=== PATIENT | female | born 1985 | race African-American/Black ===

== ENCOUNTER 2016-03-31 21:04 | Emergency (ER) | payer OTHER ==
[~2016-03-31] VITALS: Ht 162.6 cm; Wt 61.2 kg
[~2016-03-31 21:04] MED LIST: HYDR12.58 PO; HYDR25TA9 PO; METF500T4 PO
--- NOTE | 2016-03-31 21:42 | ED.ADGEN ---
Past Medical History Past Medical History: Diabetes-Type II, Hypertension Past Surgical History: Alcohol Use: Occasionally Drug Use: Marijuana Adult General Chief Complaint Chief Complaint: ANXIETY/PANIC ATTACK HPI HPI Patient is a 30 year old woman, history of type 2 diabetes mellitus, hypertension, who presents to the department with complaint of "months" of anxiety. Patient states that this may have been worsened by the of her father, states she experiencing chest tightness and shortness of breath, associated with "thinking too much", states that she has a feeling of her heart racing, and goes to sleep "afraid that I won't wake up". She does not have a primary care provider, and currently is taking metformin and hydrochlorothiazide as prescribed by an emergency physician several months ago, has been "just picking up the refills". She has not received any psychiatric counseling previously, cures no psychiatric diagnoses, does not take any medications aside from those listed. She states that she does smoke marijuana and cigarettes, denies any other drug use, no alcohol. Denies any suicidal or homicidal ideation, any self injures behaviors or thoughts, any auditory or visual hallucinations. No recent travel or surgery, history of DVT or PE, no concerning family history regarding cardiac or pulmonary events. Review of Systems Review of Systems Constitutional: Denies fever or chills. [] Eyes: Denies change in visual acuity. [] HENT: Denies nasal congestion or sore throat. [] Respiratory: Occasional cough, shortness of breath. Cardiovascular: Anterior chest tightness, no edema. GI: Denies abdominal pain, nausea, vomiting, bloody stools or diarrhea. [] : Denies dysuria. [] Musculoskeletal: Denies back pain or joint pain. [] Integument: Denies rash. [] Neurologic: Denies headache, focal weakness or sensory changes. [] Endocrine: Denies polyuria or polydipsia. [] Lymphatic: Denies swollen glands. [] Psychiatric: Some depression following the of her father, anxiety attacks. Allergies Allergies Allergies Coded Allergies Type Severity Reaction Last Updated Verified No Known Drug Allergies 10/20/15 No Physical Exam Physical Exam Constitutional: Well developed, well nourished, no acute distress, non-toxic appearance. [] HENT: Normocephalic, atraumatic, bilateral external ears normal, oropharynx moist, no oral exudates, nose normal. [] Eyes: PERRLA, EOMI, conjunctiva normal, no discharge. [] Neck: Normal range of motion, no tenderness, supple, no stridor. [] Cardiovascular:Heart rate regular rhythm, no murmur, S1, S2, no rubs or gallops. [] Lungs & Thorax: Bilateral breath sounds clear to auscultation, no wheezing, rhonchi, rales. No chest wall tenderness or crepitus. [] Abdomen: Bowel sounds normal, soft, no tenderness, no masses, no pulsatile masses. [] Skin: Warm, dry, no erythema, no rash. [] Back: No tenderness, no CVA tenderness. [] Extremities: No tenderness, no cyanosis, no clubbing, ROM intact, no edema. Negative Homans sign. [] Neurologic: Alert and oriented X 3, normal motor function, normal sensory function, no focal deficits noted. [] Psychologic: Affect normal, judgement normal, mood normal. [] Current Patient Data Vital Signs Vital Signs Date Time Temp Pulse Resp B/P Pulse Ox O2 Delivery O2 Flow Rate FiO2 03/31/16 21:20 98.9 107 17 198/105 100 Room Air 98.9 Lab Values Laboratory Tests Test 03/31/16 21:10 03/31/16 21:59 Urine Collection Type Unknown Urine Color Yellow Urine Clarity Clear Urine pH 7.0 Urine Specific [place] 1.020 Urine Protein >=300mg/dL (NEG-TRACE) Urine Glucose (UA) 250mg/dL (NEG) Urine Ketones (Stick) Negativemg/dL (NEG) Urine Blood Moderate (NEG) Urine Nitrite Negative (NEG) Urine Bilirubin Negative (NEG) Urine Urobilinogen Dipstick 0.2mg/dL (0.2 mg/dL) Urine Leukocyte Esterase Negative (NEG) Urine RBC 11-20/HPF (0-2) Urine WBC 5-10/HPF (0-4) Urine Squamous Epithelial Cells Mod/LPF Urine Bacteria Few/HPF (0-FEW) Urine Hyaline Casts Moderate/HPF Urine Test Negative (NEG) Urine Opiates Screen Neg (NEG) Urine Methadone Screen Neg (NEG) Urine Barbiturates Neg (NEG) Urine Phencyclidine Screen Pos (NEG) Urine Amphetamine/Methamphetamine Neg (NEG) Urine Benzodiazepines Screen Neg (NEG) Urine Cocaine Screen Neg (NEG) Urine Cannabinoids Screen Pos (NEG) Urine Ethyl Alcohol Neg (NEG) POC Hemoglobin 8.2g/dL (12-15) L POC Hematocrit 24% (36-40) L POC Sodium 137mmol/L (135-145) POC Potassium 3.8mmol/L (3.5-5.0) POC Chloride 109mmol/L (98-110) POC Total CO2 18mmol/L (23-32) L Anion Gap 15mmol/L (6-14) H POC Blood Urea Nitrogen 16mg/dL (8-26) POC Creatinine 1.6mg/dL (0.5-1.4) H Glucose Level 186mg/dL (70-99) H POC Ionized Calcium ([place]) 1.19mmol/L (1.13-1.32) Laboratory Tests 03/31/16 21:59 EKG EKG EC: Sinus rhythm, heart rate 91 beats/minute, upright axis, QTC of 390, MD 122, QRS is 60, baseline artifact noted, no ST elevations or depressions, no evidence of acute ST abnormalities. As interpreted by me. Radiology/Procedures Radiology/Procedures Chest x-ray: PA and lateral: Normal cardiopulmonary silhouette, no infiltrates, no effusions, no soft tissue or bony abnormalities identified. As interpreted by me. [] Course & Med Decision Making Course & Med Decision Making Pertinent Labs and Imaging studies reviewed. (See chart for details) Patient's complaints appear to be psychiatric in nature, as symptoms are tied to be her emotional state, however based on her medical history, length of symptoms, and lack of follow-up, chest x-ray, ECG, and i-STAT laboratory studies obtained. Patient is PERC negative. Patient noted to have an i-STAT hemoglobin of 8.2, previous hemoglobin was 10.2 on a prior evaluation several months ago, I did discuss this with patient, she does have a history of heavy menses, and has been told previously that she was anemic. She had a heavy cycle beginning of the month, and is beginning her menses again at this time. She complains of some lightheadedness at times, however orthostatics were negative in the emergency department, lying flat, heart rate was 90, blood pressure of 174/86, seated upright heart rate of 90, blood pressure of 170/90, standing heart rate of 91, blood pressure 169/82. Patient ambulated in the ED without issue. I did discuss with patient that her ECG, an x-ray did not reveal any concerning findings, and a laboratory finding for otherwise normal aside from her hemoglobin of 8.2, instructed her to take ferrous sulfate, 325 mg, 3 tablets daily with Colace to prevent constipation, to stay well-hydrated, and follow-up with both a primary care provider for general medical care, and OB/ PREFORMING MACHINE OPERATOR for additional evaluation of her bleeding. She was given contact information for Dr. Lovelace of ROOM SERVICE ATTENDANT, list of primary care providers, and also a list of mental health resources to seek additional help with her anxiety, we also discussed concerning symptoms that would prompt return. Patient states she does have her metformin and her blood pressure medication at home, will continue to take as directed. Patient voiced understanding and agreement with plan as stated, was discharged home in stable condition with plan as above. Dragon Disclaimer Dragon Disclaimer This electronic medical record was generated, in whole or in part, using a voice recognition dictation system. Departure Impression: Primary Impression: Anxiety Additional Impressions: Anemia Accelerated hypertension Scripts Docusate Sodium (Colace)100 Mg [id number] Mg PO QHS PRN CONSTIPATION #60 Prov:NICOLE CARMONA DO 03/31/16 Ferrous Sulfate 325 Mg Tablet1 Tab PO TID #90 TAB Ref 0 Prov:NICOLE CARMONA DO 03/31/16 Problem Qualifiers Additional Impressions: Anemia Anemia type: iron deficiency Iron deficiency anemia type: chronic blood loss Qualified Code: D50.0 - Iron deficiency anemia secondary to blood loss ( chronic) NICOLE CARMONA DO Mar 31, 2016 21:42
[2016-03-31 21:44] LABS: NEG OBC UR NEG; POS OBC UR POS
[2016-03-31 21:47] LABS: BILIRUBIN,URINE NEGATIVE (NEG); GLUCOSE,URINE 250 mg/dL (NEG); NITRITE,URINE NEGATIVE (NEG); PROTEIN,URINE >=300 mg/dL (NEG-TRACE); UROBILINOGEN,URINE 0.2 mg/dL (0.2 mg/dL)
[2016-03-31 21:48] LABS: BARBITURATES NEG (NEG); BENZODIAZEPINES NEG (NEG); CANNABINOIDS POS (NEG); COCAINE NEG (NEG); METHADONE NEG (NEG); OPIATES NEG (NEG); PHENCYCLIDINE POS (NEG)
[2016-03-31 21:49] LABS: ETHANOL, URINE NEG (NEG)
[2016-03-31 22:04] LABS: POTASSIUM ISTAT 3.8 mmol/L (3.5-5.0)
[2016-03-31 22:05] LABS: BACTERIA,URINE FEW /HPF (0-FEW); SQUAMOUS EPITHELIAL CELL,UR MOD /LPF
[2016-03-31 22:15] VITALS: BP 174/86
[2016-03-31] MEDS ORDERED: DOCU-27 PO (22:43)
[2016-03-31] MEDS ORDERED: FERR-26 PO (22:43)
--- NOTE | 2016-04-01 06:34 | EKG ---
[facility] [address] [place] [address] Test Date: 2016-03-31 Test Time: 21:55:23 Pat Name: JORGE ESTRADA Department: Room: Gender: F Manager Academic: : 1985 Requested By: NICOLE CARMNOA Order Number: [id number] Reading MD: Jos Davies Measurements Intervals [place] Rate: 91 P: -159 RI: 122 QRS: 57 QRSD: 60 T: 20 QT: 316 QTc: 390 Interpretive Statements SINUS RHYTHM QRS(T) CONTOUR ABNORMALITY CONSISTENT WITH ANTEROSEPTAL INFARCT AGE UNDETERMINED T ABNORMALITY IN ANTERIOR LEADS ABNORMAL ECG Electronically Signed On 04-01-2016 14:55:59 TAX AGENT by Jos Davies
--- NOTE | 2016-04-01 07:36 | RAD ---
Indication: Chest pain. Time of exam 2201 hours. Comparison is made with prior chest from 10/20/2015. FINDINGS: The heart size is normal. The lungs are clear. No pleural effusion or pneumothorax is identified. The pulmonary vascularity is normal. IMPRESSION: No acute abnormality detected.
== END 2016-03-31 22:55 | disposition home or self-care (01) ==
LOC: ER 21:04
DX: F41.9 Anxiety disorder, unspecified (principal); D50.0 Iron deficiency anemia secondary to blood loss (chronic); E11.9 Type 2 diabetes mellitus without complications; I10 Essential (primary) hypertension; F12.90 Cannabis use, unspecified, uncomplicated
CPT/HCPCS: 71020; 80047; 81001; 81025; 93005; 99285; G0481; 96374

== ENCOUNTER 2016-05-14 23:52 | Emergency (ER) | payer OTHER ==
[~2016-05-14] VITALS: Ht 160 cm; Wt 61.2 kg
[~2016-05-14 23:52] MED LIST changes: +DOCU-27 PO; +FERR-26 PO
--- NOTE | 2016-05-15 00:28 | PHYS DOC ---
Past Medical History Past Medical History: Anxiety, Diabetes-Type II, Hypertension Past Surgical History: Alcohol Use: Occasionally Drug Use: Marijuana Adult General Chief Complaint Chief Complaint: ANXIETY/PANIC ATTACK HPI HPI Patient is a 30 year old female who presents by EMS for dyspnea, chest tightness and anxiety exactly like prior anxiety attacks after speaking with her friend about her father. She states symptoms have currently resolved now that she is calm. Blood glucose checked and noted in 400s by EMS. She states she has not been compliant with metformin or HTN meds. She denies headache, n/v, f/c, dysuria, diarrhea, abd pain, numbness, tingling, weakness, cough. Review of Systems Review of Systems Constitutional: Denies fever or chills [] Eyes: Denies change in visual acuity, redness, or eye pain [] HENT: Denies nasal congestion or sore throat [] Respiratory: Denies cough or shortness of breath [] Cardiovascular: No additional information not addressed in HPI [] GI: Denies abdominal pain, nausea, vomiting, bloody stools or diarrhea [] : Denies dysuria or hematuria [] Musculoskeletal: Denies back pain or joint pain [] Integument: Denies rash or skin lesions [] Neurologic: Denies headache, focal weakness or sensory changes [] Endocrine: Denies polyuria or polydipsia [] Allergies Allergies Allergies Coded Allergies Type Severity Reaction Last Updated Verified No Known Drug Allergies 10/20/15 No Physical Exam Physical Exam Constitutional: Well developed, well nourished, no acute distress, non-toxic appearance. [] HENT: Normocephalic, atraumatic, bilateral external ears normal, oropharynx moist, nose normal. [] Eyes: PERRLA, EOMI. [] Neck: Normal range of motion, supple, no stridor. [] Cardiovascular:Heart rate regular rhythm [] Lungs & Thorax: Bilateral breath sounds clear to auscultation [] Abdomen: Bowel sounds normal, soft, no tenderness. [] Skin: Warm, dry, no erythema, no rash. [] Back: Normal ROM. [] Extremities: No tenderness, ROM intact, no edema, no palpable cord. [] Neurologic: Alert and oriented X 3, normal motor function, normal sensory function, no focal deficits noted. [] Psychologic: Affect normal, judgement normal, mood normal. [] Current Patient Data Vital Signs Vital Signs Date Time Temp Pulse Resp B/P Pulse Ox O2 Delivery O2 Flow Rate FiO2 05/15/16 01:00 90 16 166/79 98 Room Air 05/14/16 23:55 98.2 98.2 Lab Values Laboratory Tests Test 05/15/16 00:02 05/15/16 00:15 05/15/16 00:25 Sodium Level 137mmol/L (136-145) Potassium Level 3.3mmol/L (3.5-5.1) L Chloride Level 101mmol/L (98-107) Carbon Dioxide Level 24mmol/L (21-32) Anion Gap 12 (6-14) Blood Urea Nitrogen 23mg/dL (7-20) H Creatinine 1.8mg/dL (0.6-1.0) H Estimated GFR (Cockcroft-Gault) 40.0 Glucose Level 511mg/dL (70-99) *H Calcium Level 8.5mg/dL (8.5-10.1) Urine Collection Type Unknown Urine Color Yellow Urine Clarity Clear Urine pH 7.0 Urine Specific [place] 1.020 Urine Protein >=300mg/dL (NEG-TRACE) Urine Glucose (UA) >=1000mg/dL (NEG) Urine Ketones (Stick) Negativemg/dL (NEG) Urine Blood Moderate (NEG) Urine Nitrite Negative (NEG) Urine Bilirubin Negative (NEG) Urine Urobilinogen Dipstick 0.2mg/dL (0.2 mg/dL) Urine Leukocyte Esterase Negative (NEG) Urine RBC Occ/HPF (0-2) Urine WBC 5-10/HPF (0-4) Urine Squamous Epithelial Cells Few/LPF Urine Bacteria Few/HPF (0-FEW) Urine Mucus Slight/LPF POC Urine HCG, Qualitative Hcg negative (Negative) Laboratory Tests 05/15/16 00:02 Course & Med Decision Making Course & Med Decision Making Pertinent Labs and Imaging studies reviewed. (See chart for details) She has uncontrolled chronic medical conditions, but has otherwise remained asymptomatic. Discussed to restart home meds for control of HTN and DM. Return precautions given. She understands and agrees with plan. Dragon Disclaimer Dragon Disclaimer This electronic medical record was generated, in whole or in part, using a voice recognition dictation system. Departure Departure Impression: Primary Impression: Anxiety Additional Impressions: Uncontrolled hypertension Uncontrolled type 2 diabetes mellitus Disposition: HOME, SELF-CARE Condition: STABLE Referrals: NO PCP (PCP) Patient Instructions: Hyperglycemia, [id number] Additional Instructions: Follow-up with your primary care doctor. Resume your home medications. Return for any concerns. Problem Qualifiers Additional Impressions: Uncontrolled type 2 diabetes mellitus Diabetes mellitus complication status: without complication Diabetes mellitus termite technician insulin use: without termite technician use Qualified Code: E11.65 - Type 2 diabetes mellitus with hyperglycemia Carlota KAUFMAN MD May 15, 2016 00:28
[2016-05-15 00:49] LABS: BILIRUBIN,URINE NEGATIVE (NEG); GLUCOSE,URINE >=1000 mg/dL (NEG); NITRITE,URINE NEGATIVE (NEG); PROTEIN,URINE >=300 mg/dL (NEG-TRACE); UROBILINOGEN,URINE 0.2 mg/dL (0.2 mg/dL)
[2016-05-15 00:56] LABS: BACTERIA,URINE FEW /HPF (0-FEW); RBC,URINE OCC /HPF (0-2); SQUAMOUS EPITHELIAL CELL,UR FEW /LPF
[2016-05-15 01:03] LABS: CALCIUM 8.5 mg/dL (8.5-10.1); CREATININE 1.8 mg/dL (0.6-1.0); POTASSIUM 3.3 mmol/L (3.5-5.1)
[2016-05-15 01:20] VITALS: BP 177/93
== END 2016-05-15 01:24 | disposition home or self-care (01) ==
LOC: ER 23:52
DX: F41.9 Anxiety disorder, unspecified (principal); I10 Essential (primary) hypertension; E11.65 Type 2 diabetes mellitus with hyperglycemia; F12.10 Cannabis abuse, uncomplicated
CPT/HCPCS: 36415; 80048; 81001; 81025; 99284

== ENCOUNTER 2017-09-29 16:03 | Emergency (ER) | payer OTHER ==
[2017-09-29 16:32] LABS: ADD MAN DIFF? NO
[2017-09-29 16:35] LABS: BASO % 1 % (0-3); EOS # 0.3 x10^3/uL (0.0-0.7); EOS % 4 % (0-3); HEMATOCRIT 24.8 % (36.0-47.0); HEMOGLOBIN 8.4 g/dL (12.0-15.5); LYMPH # 1.5 x10^3/uL (1.0-4.8); LYMPH % 16 % (24-48); MEAN CORPUSCULAR HEMOGLOBIN 31 pg (25-35); MEAN CORPUSCULAR HGB CONC 34 g/dL (31-37); MEAN CORPUSCULAR VOLUME 90 fL (79-100); MONO # 0.5 x10^3/uL (0.0-1.1); MONO % 5 % (0-9); NEUT # 6.9 x10^3uL (1.8-7.7); NEUT % 75 % (31-73); PLATELET COUNT 227 x10^3/uL (140-400); RED BLOOD COUNT 2.76 x10^6/uL (3.50-5.40); RED CELL DISTRIBUTION WIDTH 15.8 % (11.5-14.5); WHITE BLOOD COUNT 9.2 x10^3/uL (4.0-11.0)
[2017-09-29 16:42] LABS: ANION GAP 11 (6-14); BLOOD UREA NITROGEN 33 mg/dL (7-20); BUN/CREATININE RATIO 5 (6-20); CARBON DIOXIDE 25 mmol/L (21-32); CHLORIDE 98 mmol/L (98-107); CREATININE 6.1 mg/dL (0.6-1.0); GFR 9.6; GLUCOSE 391 mg/dL (70-99); POTASSIUM 3.3 mmol/L (3.5-5.1); SODIUM 134 mmol/L (136-145)
[2017-09-29 16:48] LABS: ALBUMIN 2.9 g/dL (3.4-5.0); ALBUMIN/GLOBULIN RATIO 0.7 (1.0-1.7); ALK PHOS 83 U/L (46-116); ALT (SGPT) 19 U/L (14-59); AST (SGOT) 15 U/L (15-37); TOTAL BILIRUBIN 0.2 mg/dL (0.2-1.0); TOTAL PROTEIN 7.2 g/dL (6.4-8.2)
== END 2017-09-29 17:45 | disposition home or self-care (01) ==
LOC: ER 16:03
DX: R00.2 Palpitations (principal); E11.22 Type 2 diabetes mellitus with diabetic chronic kidney disease; I12.0 Hypertensive chronic kidney disease with stage 5 chronic kidney disease or end stage renal disease; N18.6 End stage renal disease; Z99.2 Dependence on renal dialysis
CPT/HCPCS: 36415; 80053; 85025; 93005; 99285-25

== ENCOUNTER 2017-12-05 07:29 | Day surgery (SDC) | payer OTHER ==
[~2017-12-05] VITALS: Ht 162.6 cm; Wt 59.4 kg
[~2017-12-05 07:29] MED LIST changes: +BUPIVACAINE-EPI 0.5%-1:200000 50 ML VIAL. ONE; +DOCU-109 PO; -DOCU-27 PO; -FERR-26 PO; +FERR325T14 PO; +HEPARIN SODIUM 5,000 UNIT in IV NORMAL SALINE 500ML BAG 500 ML IRR ONE; +HYDROmorphone 2 MG/ML VIAL IV PRN; +IV RINGERS,LACTATED 1000ML 1,000 ML IV SCH; +LIDOCAINE 1% PF 2 ML VIAL. ID PRN; +METF500T16 PO; -METF500T4 PO; +ONDANSETRON PF 4 MG/2 ML VIAL. IV PRN; +PROCHLORPERAZINE 10 MG/2 ML VIAL. IV PRN; +fentaNYL PF VIAL 100 MCG/2 ML VIAL IV PRN
[2017-12-05] MEDS ORDERED: AMLO10TA6 PO (08:00)
[2017-12-05] MEDS ORDERED: IV NORMAL SALINE 1000ML BAG 1,000 ML IV SCH (08:15)
[2017-12-05] MEDS ORDERED: PROPOFOL 20 ML IV ONE ×2 (08:29→10:48)
[2017-12-05] MEDS ORDERED: DEXAMETHASONE SOD PHOS 20 MG/5 ML VIAL. ONE (08:29)
[2017-12-05] MEDS ORDERED: ROCURONIUM 50 MG/5 ML VIAL. ONE (08:29)
[2017-12-05] MEDS ORDERED: fentaNYL PF VIAL 100 MCG/2 ML VIAL ONE (08:29)
[2017-12-05] MEDS ORDERED: ONDANSETRON PF 4 MG/2 ML VIAL. ONE (08:29)
[2017-12-05 08:42] LABS: U PREG PATIENT NEGATIVE (NEG)
[2017-12-05 09:32] LABS: ALBUMIN 2.6 g/dL (3.4-5.0); CALCIUM 8.2 mg/dL (8.5-10.1); CREATININE 10.2 mg/dL (0.6-1.0); GFR 5.3; POTASSIUM 3.4 mmol/L (3.5-5.1)
[2017-12-05] MEDS ORDERED: NEOSTIGMINE 10 MG/10 ML VIAL. ONE (10:25)
[2017-12-05] MEDS ORDERED: GLYCOPYRROLATE 1 MG/5 ML VIAL. ONE (10:25)
[2017-12-05] MEDS: MORPHINE SULFATE 2 MG/ML VIAL. IV PRN ×2 (11:01→11:48)
[2017-12-05] MEDS: fentaNYL PF VIAL 100 MCG/2 ML VIAL IV PRN ×2 (11:08→11:26)
--- NOTE | 2017-12-05 11:16 | PDOC ---
BRIEF OPERATIVE NOTE Date: Dec 05, 2017 Pre-Op Diagnosis ESRD Post-Op Diagnosis same Procedure Performed l/s placement of PD catheter JOE Surgeon Jaime Anesthesia Type: General Blood Loss 10cc IV Fluid 100cc Specimens Obtained none Findings single omental adhesion Complications none Operative Note WK # [id number] AJ OLIVAS MD Dec 05, 2017 11:16
[2017-12-05] MEDS ORDERED: OXYC-323 PO (11:31)
[2017-12-05] MEDS ORDERED: DOCU50CA9 PO (11:32)
--- NOTE | 2017-12-05 11:32 | OP ---
DATE OF SURGERY: 12/05/2017 PREOPERATIVE DIAGNOSIS: End-stage renal disease, currently on hemodialysis, requesting peritoneal dialysis. POSTOPERATIVE DIAGNOSIS: End-stage renal disease, currently on hemodialysis, requesting peritoneal dialysis. PROCEDURE: Laparoscopic placement of peritoneal dialysis catheter. SURGEON: Gaston Olivas MD ANESTHESIA: General endotracheal. ESTIMATED BLOOD LOSS: 10 mL. IV FLUID: 100. INDICATIONS: The patient is a 32-year-old with end-stage renal disease, on hemodialysis, requesting PD cath, brought for placement. DESCRIPTION OF PROCEDURE: The patient was brought to the operating suite, given a general endotracheal anesthetic, and the abdomen prepped and draped in usual sterile fashion. An epigastric incision was infiltrated with local anesthetic, incised and a 5 mm Visiport used to safely gain access into the abdominal cavity, taking care to avoid injury to abdominal contents. Pneumoperitoneum established. Camera inserted. Inspection carried out. A single omental adhesion was present. A 5 mm Visiport was placed under direct vision at the entry site of the catheter, and the laparoscopic LigaSure was used to divide it. The port was removed. Veress needle placed. Needle removed. Dilators used. Catheter threaded through the sheath and the sheath was removed while seating the Dacron cuff just outside the peritoneum. The access site was infiltrated with local anesthetic, incised and the tunneler was used to deliver the end of the catheter out the exit site. Pneumoperitoneum decompressed. Port removed. The catheter was flushed with approximately 600 mL of normal saline, which are readily accepted and similarly drained out. Incisions closed with interrupted 3-0 Vicryl on the subcutaneous tissue. Skin bandar for the skin. Sterile dressings applied. Prior to placement of dressings, the catheter was "packed" with 60 mL of heparinized saline. The patient awakened from her anesthetic and taken to the recovery room in satisfactory condition. GASTON OLIVAS MD DR: SUSY/manasa JOB#: [id number] / [id number]
[2017-12-05] MEDS ORDERED: oxyCODONE/APAP 5/325 1 TAB TABLET PO ONE (12:00)
[2017-12-05 12:09] VITALS: BP 138/85
[2017-12-05] MEDS ORDERED: SEVOFLURANE 31 TO 60 MINUTES. IH ONE (12:26)
== END 2017-12-05 12:47 | disposition home or self-care (01) ==
LOC: SURG 07:29
PROVIDERS: ATTEND Surgery
DX: I12.0 Hypertensive chronic kidney disease with stage 5 chronic kidney disease or end stage renal disease (principal); E11.22 Type 2 diabetes mellitus with diabetic chronic kidney disease; N18.6 End stage renal disease; E78.00 Pure hypercholesterolemia, unspecified; Z99.2 Dependence on renal dialysis; Z79.4 Long term (current) use of insulin; Z79.899 Other long term (current) drug therapy; Z98.890 Other specified postprocedural states; Z80.0 Family history of malignant neoplasm of digestive organs; F17.210 Nicotine dependence, cigarettes, uncomplicated
CPT/HCPCS: 36415; 49324; 80048; 81025; 82040; 82962; J0690; J0780; J1100; J1644; J2270; J2405; J2704; J3010; J7030; J7040; J7120; J2710; J3490

== ENCOUNTER 2018-11-12 23:55 | Inpatient (IN) | payer SELFPAY ==
[~2018-11-12] VITALS: Ht 162.6 cm; Wt 70.8 kg
[~2018-11-12 23:55] MED LIST changes: +AMLO10TA8 PO; -BUPIVACAINE-EPI 0.5%-1:200000 50 ML VIAL. ONE; +DOCU50CA9 PO; -HEPARIN SODIUM 5,000 UNIT in IV NORMAL SALINE 500ML BAG 500 ML IRR ONE; +HYDR-2145 PO; -HYDR25TA9 PO; -HYDROmorphone 2 MG/ML VIAL IV PRN; -IV RINGERS,LACTATED 1000ML 1,000 ML IV SCH; -LIDOCAINE 1% PF 2 ML VIAL. ID PRN; -ONDANSETRON PF 4 MG/2 ML VIAL. IV PRN; +OXYC1TAB15 PO; -PROCHLORPERAZINE 10 MG/2 ML VIAL. IV PRN; -fentaNYL PF VIAL 100 MCG/2 ML VIAL IV PRN
[2018-11-13] VITALS (15 sets, daily range): BP systolic 129–182; BP diastolic 73–93
[2018-11-13 00:41] LABS: BASO # 0.2 x10^3/uL (0.0-0.2); BASO % 2 % (0-3); EOS # 0.4 x10^3/uL (0.0-0.7); EOS % 4 % (0-3); HEMATOCRIT 25.1 % (36.0-47.0); HEMOGLOBIN 8.3 g/dL (12.0-15.5); LYMPH # 1.3 x10^3/uL (1.0-4.8); LYMPH % 11 % (24-48); MEAN CORPUSCULAR HEMOGLOBIN 31 pg (25-35); MEAN CORPUSCULAR HGB CONC 33 g/dL (31-37); MEAN CORPUSCULAR VOLUME 94 fL (79-100); MONO # 1.2 x10^3/uL (0.0-1.1); MONO % 10 % (0-9); NEUT # 9.6 x10^3/uL (1.8-7.7); NEUT % 75 % (31-73); PLATELET COUNT 471 x10^3/uL (140-400); RED BLOOD COUNT 2.68 x10^6/uL (3.50-5.40); RED CELL DISTRIBUTION WIDTH 17.6 % (11.5-14.5); WHITE BLOOD COUNT 12.8 x10^3/uL (4.0-11.0)
[2018-11-13] MEDS ORDERED: CCPD PATIENT. MC PRN (00:45)
--- NOTE | 2018-11-13 00:45 | PHYS DOC ---
Past Medical History Past Medical History: Anxiety, Diabetes-Type II, Hypertension, Renal Failure Past Surgical History: , Other Additional Past Surgical Histo: kidney biopsy,dialysis cath R chest Alcohol Use: None Drug Use: Marijuana Adult General Chief Complaint Chief Complaint: SHORTNESS OF BREATH HPI HPI Patient is a 33-year-old female with end-stage renal disease who is on peritone al dialysis who is also medically noncompliant presents stating she is short of breath and fluid overloaded. She states she last did dialysis 4 days ago. She denies any fever chills or sweats. She has had a cough but it's been nonproductive. She denies any significant chest pain. She denies abdominal pain.[] Review of Systems Review of Systems Constitutional: Denies fever or chills [] Eyes: Denies change in visual acuity, redness, or eye pain [] HENT: Denies nasal congestion or sore throat [] Respiratory: Reports shortness of breath[] Cardiovascular: No additional information not addressed in HPI [] GI: Denies abdominal pain, nausea, vomiting, bloody stools or diarrhea [] : Denies dysuria or hematuria [] Musculoskeletal: Denies back pain or joint pain [] Integument: Denies rash or skin lesions [] Neurologic: Denies headache, focal weakness or sensory changes [] [] All other systems were reviewed and found to be within normal limits, except as documented in this note. Current Medications Current Medications Current Medications Medications (Trade) Dose Ordered Sig/Mary Kay Start Time Stop Time Status Last Admin Dose Admin Albuterol Sulfate (Ventolin Neb Soln) 10 mg 1X ONCE 11/13/18 01:15 11/13/18 01:16 Calcium Gluconate (Calcium Gluconate) 1,000 mg 1X ONCE 11/13/18 01:15 11/13/18 01:16 Dextrose (Dextrose 50%-Water Syringe) 25 gm 1X ONCE 11/13/18 01:15 11/13/18 01:16 Insulin Human Regular (HumuLIN R VIAL) 10 unit 1X ONCE 11/13/18 01:15 11/13/18 01:16 Lorazepam (Ativan Inj) 1 mg 1X ONCE 11/13/18 00:30 11/13/18 00:31 DC 11/13/18 00:50 1 MG Nicardipine HCl 50 mg/Sodium Chloride 250 ml @ 25 mls/hr CONT PRN 11/13/18 00:30 11/13/18 00:47 DC Peritoneal Dialysis Solution (Continuous Cycling Peritoneal Dialysis Pt) 1 each PRN 1X PRN 11/13/18 00:45 Sodium Polystyrene Sulfonate (Kayexalate) 15 gm 1X ONCE 11/13/18 01:15 11/13/18 01:16 Sodium Bicarbonate (Sodium Bicarb Adult 8.4% Syr) 50 meq 1X ONCE 11/13/18 01:15 11/13/18 01:16 Allergies Allergies Allergies Coded Allergies Type Severity Reaction Last Updated Verified No Known Drug Allergies 12/05/17 No Physical Exam Physical Exam Constitutional: Patient is in moderate distress and appears acutely ill[] HENT: Normocephalic, atraumatic, bilateral external ears normal, oropharynx moist, no oral exudates, nose normal. [] Eyes: PERRLA, EOMI, conjunctiva normal, no discharge. [] Neck: Normal range of motion, no tenderness, supple, no stridor. [] Cardiovascular: Tachycardic no obvious murmur[] Lungs & Thorax: Rales right base[] Abdomen: Bowel sounds normal, soft, no tenderness, no masses, no pulsatile masses. [] Skin: Warm, dry, no erythema, no rash. [] Back: No tenderness, no CVA tenderness. [] Extremities: No tenderness, no cyanosis, no clubbing, ROM intact, no edema. [] Neurologic: Alert and oriented X 3, normal motor function, normal sensory function, no focal deficits noted. [] Psychologic: Extremely anxious. [] Current Patient Data Vital Signs Vital Signs Date Time Temp Pulse Resp B/P (MAP) Pulse Ox O2 Delivery O2 Flow Rate FiO2 11/13/18 01:01 115 36 181/88 (119) 100 Nasal Cannula 4.0 11/12/18 23:57 98.2 98.2 Lab Values Laboratory Tests Test 11/13/18 00:30 White Blood Count 12.8 x10^3/uL (4.0-11.0) H Red Blood Count 2.68 x10^6/uL (3.50-5.40) L Hemoglobin 8.3 g/dL (12.0-15.5) L Hematocrit 25.1 % (36.0-47.0) L Mean Corpuscular Volume 94 fL (79-100) Mean Corpuscular Hemoglobin 31 pg (25-35) Mean Corpuscular Hemoglobin Concent 33 g/dL (31-37) Red Cell Distribution Width 17.6 % (11.5-14.5) H Platelet Count 471 x10^3/uL (140-400) H Neutrophils (%) (Auto) 75 % (31-73) H Lymphocytes (%) (Auto) 11 % (24-48) L Monocytes (%) (Auto) 10 % (0-9) H Eosinophils (%) (Auto) 4 % (0-3) H Basophils (%) (Auto) 2 % (0-3) Neutrophils # (Auto) 9.6 x10^3/uL (1.8-7.7) H Lymphocytes # (Auto) 1.3 x10^3/uL (1.0-4.8) Monocytes # (Auto) 1.2 x10^3/uL (0.0-1.1) H Eosinophils # (Auto) 0.4 x10^3/uL (0.0-0.7) Basophils # (Auto) 0.2 x10^3/uL (0.0-0.2) Sodium Level 136 mmol/L (136-145) Potassium Level 7.5 mmol/L (3.5-5.1) *H Chloride Level 95 mmol/L (98-107) L Carbon Dioxide Level 26 mmol/L (21-32) Anion Gap 15 (6-14) H Blood Urea Nitrogen 89 mg/dL (7-20) H Creatinine 13.5 mg/dL (0.6-1.0) H Estimated GFR (Cockcroft-Gault) 3.8 BUN/Creatinine Ratio 7 (6-20) Glucose Level 96 mg/dL (70-99) Calcium Level 9.8 mg/dL (8.5-10.1) Magnesium Level 2.2 mg/dL (1.8-2.4) Total Bilirubin 0.2 mg/dL (0.2-1.0) Aspartate Amino Transferase (AST) 43 U/L (15-37) H Alanine Aminotransferase (ALT) 25 U/L (14-59) Alkaline Phosphatase 139 U/L (46-116) H Total Protein 8.3 g/dL (6.4-8.2) H Albumin 2.6 g/dL (3.4-5.0) L Albumin/Globulin Ratio 0.5 (1.0-1.7) L Ethyl Alcohol Level < 10 mg/dL (0-10) Laboratory Tests 11/13/18 00:30 Laboratory Tests 11/13/18 00:30 EKG EKG [] Interpretation Time: EKG: Sinus tachycardia rate of 120 with peaked T waves otherwise no ischemic ST- T changes Radiology/Procedures Radiology/Procedures [] Impressions: REASON: soa PROCEDURE: CHEST AP ONLY CHEST AP ONLY INDICATION: . COMPARISON STUDY: 03/31/2016. FINDINGS: Lungs: Normal lung volume. Patchy right mid and lower lung opacities. Pleura: Moderate right pleural effusion. Heart and Mediastinum: Cardiomegaly. The great vessels of the thorax are normal. IMPRESSION: Patchy right mid and lower lung opacities, concerning for an infectious/inflammatory process. Moderate right pleural effusion. Course & Med Decision Making Course & Med Decision Making Pertinent Labs and Imaging studies reviewed. (See chart for details) [CRITICAL CARE: Time spent was 45 minutes. This includes medical management, evaluation, reevaluation, discussion with consultants and family. Critical Care does NOT include time spent on separately billed procedures. ] ED course: Evaluation reveals a critically ill 33-year-old female in respiratory distress secondary to fluid overload. It was also noted that her potassium was 7.5. Patient was given an hour-long continuous albuterol neb, 1 amp of sodium bicarbonate, 1 amp of calcium gluconate, an amp of D50 followed by 10 units of regular insulin in peritoneal dialysis was initiated in the emergency department. I did speak with Dr. Garcia about the patient. Go ahead and admit the patient to the ICU under the hospitalist care. Dragon Disclaimer Dragon Disclaimer This electronic medical record was generated, in whole or in part, using a voice recognition dictation system. Departure Departure Impression: Primary Impression: Hyperkalemia Additional Impressions: ESRD (end stage renal disease) on dialysis Anxiety Accelerated hypertension Disposition: ADMITTED INPATIENT Admitting Physician: ELIZABETH Condition: CRITICAL Referrals: NO PCP (PCP) Problem Qualifiers TSERING HOYT DO Nov 13, 2018 00:45
[2018-11-13 00:53] LABS: ALBUMIN 2.6 g/dL (3.4-5.0); ALBUMIN/GLOBULIN RATIO 0.5 (1.0-1.7); CALCIUM 9.8 mg/dL (8.5-10.1); CREATININE 13.5 mg/dL (0.6-1.0); GFR 3.8; MAGNESIUM 2.2 mg/dL (1.8-2.4); TOTAL BILIRUBIN 0.2 mg/dL (0.2-1.0); TOTAL PROTEIN 8.3 g/dL (6.4-8.2)
[2018-11-13 00:54] LABS: POTASSIUM 7.5 mmol/L (3.5-5.1)
--- NOTE | 2018-11-13 01:10 | RAD ---
CHEST AP ONLY INDICATION: . COMPARISON STUDY: 03/31/2016. FINDINGS: Lungs: Normal lung volume. Patchy right mid and lower lung opacities. Pleura: Moderate right pleural effusion. Heart and Mediastinum: Cardiomegaly. The great vessels of the thorax are normal. IMPRESSION: Patchy right mid and lower lung opacities, concerning for an infectious/inflammatory process. Moderate right pleural effusion. Electronically signed by: Mariano Hummel MD (11/13/2018 1:07 AM) [id number]
[2018-11-13] MEDS ORDERED: INSULIN REGULAR 100 UNIT/ML 3ML VIAL. IV ONE (01:15)
[2018-11-13] MEDS ORDERED: POTASSIUM CHLORIDE IP SCH (01:15)
[2018-11-13] MEDS ORDERED: SODIUM BICARB ADULT 8.4% 50 MEQ/50 ML DISP.SYRIN. IV ONE (01:15)
[2018-11-13] MEDS ORDERED: VANCOMYCIN IP SCH (01:15)
[2018-11-13] MEDS ORDERED: SODIUM POLYSTYRENE SULFON/SORB 15 GM/60 ML ORAL.SUSP PO ONE (01:15)
[2018-11-13] MEDS ORDERED: ONDANSETRON PF 4 MG/2 ML VIAL. IV PRN ×2 (01:15→12:15)
[2018-11-13] MEDS ORDERED: ALBUTEROL SULFATE 2.5 MG/3 ML NEBU. CONT NEB ONE (01:15)
[2018-11-13] MEDS ORDERED: DIALYSIS PATIENT. MC PRN (01:15)
[2018-11-13] MEDS ORDERED: HEPARIN PRESERVATIVE FREE IP SCH (01:15)
[2018-11-13] MEDS ORDERED: CALCIUM GLUCONATE 1,000 MG/10 ML VIAL. IVP ONE (01:15)
[2018-11-13] MEDS ORDERED: [UNRECOGNIZED DRUG - OTHER] IP SCH (01:15)
[2018-11-13] MEDS ORDERED: DEXTROSE 50% 25 GM / 50ML DISP.SYRIN. IV ONE (01:15)
[2018-11-13 04:35] LABS: BASO # 0.1 x10^3/uL (0.0-0.2); BASO % 1 % (0-3); EOS # 0.3 x10^3/uL (0.0-0.7); EOS % 3 % (0-3); HEMATOCRIT 22.2 % (36.0-47.0); HEMOGLOBIN 7.4 g/dL (12.0-15.5); LYMPH % 9 % (24-48); MEAN CORPUSCULAR HEMOGLOBIN 31 pg (25-35); MEAN CORPUSCULAR HGB CONC 33 g/dL (31-37); MEAN CORPUSCULAR VOLUME 94 fL (79-100); MONO # 1.7 x10^3/uL (0.0-1.1); MONO % 16 % (0-9); NEUT # 7.9 x10^3/uL (1.8-7.7); NEUT % 71 % (31-73); PLATELET COUNT 415 x10^3/uL (140-400); RED BLOOD COUNT 2.37 x10^6/uL (3.50-5.40); RED CELL DISTRIBUTION WIDTH 17.7 % (11.5-14.5); WHITE BLOOD COUNT 11.1 x10^3/uL (4.0-11.0)
--- NOTE | 2018-11-13 04:50 | NUR ---
Pt arrived this AM to ICU accompanied by 2 ED RN's via bk. VSS, pt attached to 4LNC, pt very lethargic and weak, otherwise A&0x4 to questions, and warm to touch. Pt attached to peritoneal dialysis tubing connected to two empty bags, that had previously been used in the ED. ED RN instructed this RN and two others in how to set up peritoneal dialysis bags and how to run dialysis. Pt settled into room and oriented to ICU protocols and procedures. Pt also oriented to safety devices , call light, security and no smoking policy, and plan of care. 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 Charge nurse received call and alerted this RN that Dialysis nurse Mildred would be coming to hospital to set up next dialysis bags per direction of Dr. Luis Garcia. 1800 UF out from first run of peritoneal dialysis in ED. Pt is very poor historian, this RN had to recall prior information within system to fill current question requirements also due to lethargy of pt. Provider paged at [phone]. Provider returned page at [phone]. Dr. Marie updated on condition of pt, care summary in ED, current labs, history, procedures done, sepsis screen triggering positive. Order received to draw lactic acid for this AM, CBC for this AM, AC/HS glucose checks daily, renal panels for this AM and tomorrow AM and provider mentioned to titrate O2 to keep saturation between atleast 88% and 93%. Will continue to assess and monitor for updates in pt condition.
[2018-11-13 04:52] LABS: ALBUMIN 2.2 g/dL (3.4-5.0); CALCIUM 9.6 mg/dL (8.5-10.1); CREATININE 13.5 mg/dL (0.6-1.0); GFR 3.8
[2018-11-13 04:53] LABS: PHOSPHORUS 10.7 mg/dL (2.6-4.7); POTASSIUM 6.3 mmol/L (3.5-5.1)
--- NOTE | 2018-11-13 05:20 | NUR ---
Pt CBC resulted in a critical K+ value of 6.3, down from a previous 7.5 as previously told to Dr. Marie. Also, phone call received by Johnny in pharmacy raising concern of existing order for Johnny to create dialysate bag containing 500 mg of Vancomycin, more than safe/ recommended dose for pt as advised by Johnny, 500 of heparin, and potassium, in which the pt's potassium was already high. Dr. Wenceslao Garcia paged, Dr. Wenceslao Garcia returned page. Provider updated on pt condition and critical lab value. Provider acknowledged critical and trending- down value. Provider also informed of situation with Dialysate, provider ordered this RN not to have a bag with that amount of added medications created and not to have it administered to pt. Provider advised that Dr. Bernstein will be in, in the morning, and that Dr. Bernstein will address the issue then. Pharmacist Johnny updated of providers wishes. Pharmacist Johnny to cancel the order to eliminate possible confusion in the future in regards to the dialysate bag. Will continue to assess and monitor pt condition for change.
--- NOTE | 2018-11-13 08:00 | EKG ---
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
[2018-11-13] MEDS ORDERED: hydrALAZINE 20 MG/ML VIAL. IVP PRN (09:00)
[2018-11-13] MEDS ORDERED: fentaNYL PF VIAL 100 MCG/2 ML VIAL IV ONE (09:00)
[2018-11-13] MEDS ORDERED: PIPERACILLIN/TAZOBACTAM 3.375 GM in IV NORMAL SALINE 50ML 50 ML IV ONE (09:00)
--- NOTE | 2018-11-13 09:40 | EKG ---
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
[2018-11-13] MEDS ORDERED: PIPERACILLIN/TAZOBACTAM 2.25 GM in IV NORMAL SALINE 50ML 50 ML IV ONE (10:00)
[2018-11-13] MEDS ORDERED: FUROSEMIDE 40 MG/4 ML VIAL. IVP ONE (10:00)
--- NOTE | 2018-11-13 11:48 | PDOC1 ---
History and Physical Date of Admission Date of Admission DATE: 11/13/18 TIME: 11:44 Identification/Chief Complaint Chief Complaint seen in er with severe hyperkalemia 33-year-old female with end-stage renal disease who is on peritoneal dialysis who is also medically noncompliant presents stating she is short of breath and fluid overloaded. She states she last did dialysis 4 days ago. She denies any fever chills or sweats. She has had a cough but it's been nonproductive. She denies any significant chest pain. She denies abdominal pain. Past Medical History Past Medical History Past Medical History Past Medical History: Anxiety, Diabetes-Type II, Hypertension, Renal Failure Past Surgical History: , Other Additional Past Surgical Histo: kidney biopsy,dialysis cath R chest Alcohol Use: None Drug Use: Marijuana Cardiovascular: HTN Renal/: Chronic renal failure Family History Family History: Hypertension Social History Smoke: <1 pack per day ALCOHOL: none Drugs: Marijuana Current Problem List Problem List Problems Medical Problems: (1) Accelerated hypertension Status: Acute (2) Anxiety Status: Acute Current Medications Current Medications Current Medications Nicardipine HCl 50 mg/Sodium Chloride 250 ml @ 25 mls/hr CONT PRN IV SEE I/O RECORD; Start 11/13/18 at 00:30; Stop 11/13/18 at 00:47; Status DC Lorazepam (Ativan Inj) 1 mg 1X ONCE IV Last administered on 11/13/18at 00:50; Start 11/13/18 at 00:30; Stop 11/13/18 at 00:31; Status DC Peritoneal Dialysis Solution (Continuous Cycling Peritoneal Dialysis Pt) 1 each PRN 1X PRN MC SEE COMMENTS; Start 11/13/18 at 00:45 Albuterol Sulfate (Ventolin Neb Soln) 10 mg 1X ONCE CONT NEB Last administered on 11/13/18at 01:33; Start 11/13/18 at 01:15; Stop 11/13/18 at 01:19; Status DC Dextrose (Dextrose 50%-Water Syringe) 25 gm 1X ONCE IV Last administered on 11/13/18at 01:15; Start 11/13/18 at 01:15; Stop 11/13/18 at 01:19; Status DC Insulin Human Regular (HumuLIN R VIAL) 10 unit 1X ONCE IV Last administered on 11/13/18at 01:15; Start 11/13/18 at 01:15; Stop 11/13/18 at 01:19; Status DC Calcium Gluconate (Calcium Gluconate) 1,000 mg 1X ONCE IVP Last administered on 11/13/18at 01:15; Start 11/13/18 at 01:15; Stop 11/13/18 at 01:19; Status DC Sodium Bicarbonate (Sodium Bicarb Adult 8.4% Syr) 50 meq 1X ONCE IV Last administered on 11/13/18at 01:15; Start 11/13/18 at 01:15; Stop 11/13/18 at 01:19; Status DC Sodium Polystyrene Sulfonate (Kayexalate) 15 gm 1X ONCE PO Last administered on 11/13/18at 01:15; Start 11/13/18 at 01:15; Stop 11/13/18 at :19; Status DC Ondansetron HCl (Zofran) 4 mg PRN Q8HRS PRN IV NAUSEA/VOMITING; Start 11/13/18 a t 01:15; Stop 11/14/18 at 01:14 Heparin Sodium (Porcine) 500 unit/Vancomycin HCl 500 mg/ Potassium Chloride 20 meq/ Peritoneal Dialysis Solution 2,015 ml @ 671.667 mls/hr Q6H IP ; Start 11/13/18 at 01:15; Status UNV Info (PHARMACY MONITORING -- do not chart) 1 each PRN DAILY PRN MC SEE COMMENTS; Start 11/13/18 at 01:15 Fentanyl Citrate (Fentanyl 2ml Vial) 25 mcg 1X ONCE IV Last administered on 11/13/18at 11:20; Start 11/13/18 at 09:00; Stop 11/13/18 at 09:11; Status DC Hydralazine HCl (Apresoline Inj) 10 mg PRN Q4HRS PRN IVP ELEVATED BP, SEE COMMENTS; Start 11/13/18 at 09:00 Furosemide (Lasix) 40 mg 1X ONCE IVP Last administered on 11/13/18at 10:14; Start 11/13/18 at 10:00; Stop 11/13/18 at 10:01; Status DC Piperacillin Sod/ Tazobactam Sod 3.375 gm/Sodium Chloride 50 ml @ 100 mls/hr 1X ONCE IV ; Start 11/13/18 at 09:00; Stop 11/13/18 at 09:29; Status UNV Piperacillin Sod/ Tazobactam Sod 2.25 gm/Sodium Chloride 50 ml @ 100 mls/hr 1X ONCE IV Last administered on 11/13/18at 10:14; Start 11/13/18 at 10:00; Stop 11/13/18 at 10:29; Status DC Active Scripts Active Reported Stool Softener (Docusate Sodium) 50 Mg Capsule 50 Mg PO BID over the counter. take this once or twice a day to avoid constipation causaed by percocet Percocet 5-325 Mg Tablet (Oxycodone/Acetaminophen) 1 Each Tablet 1 Tab PO Q4- 6HRS LAST DOSE GIVEN: Amlodipine Besylate 10 Mg Tablet 10 Mg PO DAILY Hydrochlorothiazide Tablet (Hydrochlorothiazide) 12.5 Mg Tablet Unknown Dose PO DAILY Metformin Hcl 500 Mg Tablet 1 Tab PO BID Allergies Allergies: Coded Allergies: No Known Drug Allergies (Unverified , 12/05/17) ROS Review of System Review of Systems Review of Systems Constitutional: Denies fever or chills [] Eyes: Denies change in visual acuity, redness, or eye pain [] HENT: Denies nasal congestion or sore throat [] Respiratory: Reports shortness of breath[] Cardiovascular: No additional information not addressed in HPI [] GI: Denies abdominal pain, nausea, vomiting, bloody stools or diarrhea [] : Denies dysuria or hematuria [] Musculoskeletal: Denies back pain or joint pain [] Integument: Denies rash or skin lesions [] Neurologic: Denies headache, focal weakness or sensory changes [] [] 14 pt systems were reviewed and found to be within normal limits, except as documented PSYCHOLOGICAL ROS: YES: Anxiety Respiratory: YES: Shortness of breath Physical Exam Physical Exam Physical Exam Physical Exam Constitutional: Patient is in moderate distress and appears acutely ill[] HENT: Normocephalic, atraumatic, bilateral external ears normal, oropharynx moist, no oral exudates, nose normal. [] Eyes: PERRLA, EOMI, conjunctiva normal, no discharge. [] Neck: Normal range of motion, no tenderness, supple, no stridor. [] Cardiovascular: Tachycardic no obvious murmur[] Lungs & Thorax: Rales right base[] Abdomen: Bowel sounds normal, soft, no tenderness, no masses, no pulsatile masses. [] Skin: Warm, dry, no erythema, no rash. [] Back: No tenderness, no CVA tenderness. [] Extremities: No tenderness, no cyanosis, no clubbing, ROM intact, no edema. [] Neurologic: Alert and oriented X 3, normal motor function, normal sensory function, no focal deficits noted. [] Psychologic: Extremely anxious. [] General: Alert, Oriented X3, Cooperative HEENT: Atraumatic Heart: no thrills Breasts: Not examined Abdomen: Soft Rectal Exam: not examined Neuro: Normal speech, Cranial nerves 3-12 NL Vitals Vitals Vital Signs Date Time Temp Pulse Resp B/P (MAP) Pulse Ox O2 Delivery O2 Flow Rate FiO2 11/13/18 11:20 28 95 Room Air 11/13/18 11:00 111 168/90 (116) 11/13/18 07:00 99.4 99.4 11/13/18 01:35 4.0 Labs Labs Laboratory Tests Test 11/13/18 00:30 11/13/18 04:10 White Blood Count 12.8 x10^3/uL (4.0-11.0) 11.1 x10^3/uL (4.0-11.0) Red Blood Count 2.68 x10^6/uL (3.50-5.40) 2.37 x10^6/uL (3.50-5.40) Hemoglobin 8.3 g/dL (12.0-15.5) 7.4 g/dL (12.0-15.5) Hematocrit 25.1 % (36.0-47.0) 22.2 % (36.0-47.0) Mean Corpuscular Volume 94 fL (79-100) 94 fL (79-100) Mean Corpuscular Hemoglobin 31 pg (25-35) 31 pg (25-35) Mean Corpuscular Hemoglobin Concent 33 g/dL (31-37) 33 g/dL (31-37) Red Cell Distribution Width 17.6 % (11.5-14.5) 17.7 % (11.5-14.5) Platelet Count 471 x10^3/uL (140-400) 415 x10^3/uL (140-400) Neutrophils (%) (Auto) 75 % (31-73) 71 % (31-73) Lymphocytes (%) (Auto) 11 % (24-48) 9 % (24-48) Monocytes (%) (Auto) 10 % (0-9) 16 % (0-9) Eosinophils (%) (Auto) 4 % (0-3) 3 % (0-3) Basophils (%) (Auto) 2 % (0-3) 1 % (0-3) Neutrophils # (Auto) 9.6 x10^3/uL (1.8-7.7) 7.9 x10^3/uL (1.8-7.7) Lymphocytes # (Auto) 1.3 x10^3/uL (1.0-4.8) 1.0 x10^3/uL (1.0-4.8) Monocytes # (Auto) 1.2 x10^3/uL (0.0-1.1) 1.7 x10^3/uL (0.0-1.1) Eosinophils # (Auto) 0.4 x10^3/uL (0.0-0.7) 0.3 x10^3/uL (0.0-0.7) Basophils # (Auto) 0.2 x10^3/uL (0.0-0.2) 0.1 x10^3/uL (0.0-0.2) Sodium Level 136 mmol/L (136-145) 140 mmol/L (136-145) Potassium Level 7.5 mmol/L (3.5-5.1) 6.3 mmol/L (3.5-5.1) Chloride Level 95 mmol/L (98-107) 99 mmol/L (98-107) Carbon Dioxide Level 26 mmol/L (21-32) 26 mmol/L (21-32) Anion Gap 15 (6-14) 15 (6-14) Blood Urea Nitrogen 89 mg/dL (7-20) 86 mg/dL (7-20) Creatinine 13.5 mg/dL (0.6-1.0) 13.5 mg/dL (0.6-1.0) Estimated GFR (Cockcroft-Gault) 3.8 3.8 BUN/Creatinine Ratio 7 (6-20) Glucose Level 96 mg/dL (70-99) 65 mg/dL (70-99) Lactic Acid Level 0.5 mmol/L (0.4-2.0) Calcium Level 9.8 mg/dL (8.5-10.1) 9.6 mg/dL (8.5-10.1) Magnesium Level 2.2 mg/dL (1.8-2.4) Total Bilirubin 0.2 mg/dL (0.2-1.0) Aspartate Amino Transf (AST/SGOT) 43 U/L (15-37) Alanine Aminotransferase (ALT/SGPT) 25 U/L (14-59) Alkaline Phosphatase 139 U/L (46-116) Total Protein 8.3 g/dL (6.4-8.2) Albumin 2.6 g/dL (3.4-5.0) 2.2 g/dL (3.4-5.0) Albumin/Globulin Ratio 0.5 (1.0-1.7) Ethyl Alcohol Level < 10 mg/dL (0-10) Phosphorus Level 10.7 mg/dL (2.6-4.7) Troponin I Quantitative < 0.017 ng/mL (0.000-0.055) Laboratory Tests Test 11/13/18 00:30 11/13/18 04:10 White Blood Count 12.8 x10^3/uL (4.0-11.0) 11.1 x10^3/uL (4.0-11.0) Red Blood Count 2.68 x10^6/uL (3.50-5.40) 2.37 x10^6/uL (3.50-5.40) Hemoglobin 8.3 g/dL (12.0-15.5) 7.4 g/dL (12.0-15.5) Hematocrit 25.1 % (36.0-47.0) 22.2 % (36.0-47.0) Mean Corpuscular Volume 94 fL (79-100) 94 fL (79-100) Mean Corpuscular Hemoglobin 31 pg (25-35) 31 pg (25-35) Mean Corpuscular Hemoglobin Concent 33 g/dL (31-37) 33 g/dL (31-37) Red Cell Distribution Width 17.6 % (11.5-14.5) 17.7 % (11.5-14.5) Platelet Count 471 x10^3/uL (140-400) 415 x10^3/uL (140-400) Neutrophils (%) (Auto) 75 % (31-73) 71 % (31-73) Lymphocytes (%) (Auto) 11 % (24-48) 9 % (24-48) Monocytes (%) (Auto) 10 % (0-9) 16 % (0-9) Eosinophils (%) (Auto) 4 % (0-3) 3 % (0-3) Basophils (%) (Auto) 2 % (0-3) 1 % (0-3) Neutrophils # (Auto) 9.6 x10^3/uL (1.8-7.7) 7.9 x10^3/uL (1.8-7.7) Lymphocytes # (Auto) 1.3 x10^3/uL (1.0-4.8) 1.0 x10^3/uL (1.0-4.8) Monocytes # (Auto) 1.2 x10^3/uL (0.0-1.1) 1.7 x10^3/uL (0.0-1.1) Eosinophils # (Auto) 0.4 x10^3/uL (0.0-0.7) 0.3 x10^3/uL (0.0-0.7) Basophils # (Auto) 0.2 x10^3/uL (0.0-0.2) 0.1 x10^3/uL (0.0-0.2) Sodium Level 136 mmol/L (136-145) 140 mmol/L (136-145) Potassium Level 7.5 mmol/L (3.5-5.1) 6.3 mmol/L (3.5-5.1) Chloride Level 95 mmol/L (98-107) 99 mmol/L (98-107) Carbon Dioxide Level 26 mmol/L (21-32) 26 mmol/L (21-32) Anion Gap 15 (6-14) 15 (6-14) Blood Urea Nitrogen 89 mg/dL (7-20) 86 mg/dL (7-20) Creatinine 13.5 mg/dL (0.6-1.0) 13.5 mg/dL (0.6-1.0) Estimated GFR (Cockcroft-Gault) 3.8 3.8 BUN/Creatinine Ratio 7 (6-20) Glucose Level 96 mg/dL (70-99) 65 mg/dL (70-99) Lactic Acid Level 0.5 mmol/L (0.4-2.0) Calcium Level 9.8 mg/dL (8.5-10.1) 9.6 mg/dL (8.5-10.1) Magnesium Level 2.2 mg/dL (1.8-2.4) Total Bilirubin 0.2 mg/dL (0.2-1.0) Aspartate Amino Transf (AST/SGOT) 43 U/L (15-37) Alanine Aminotransferase (ALT/SGPT) 25 U/L (14-59) Alkaline Phosphatase 139 U/L (46-116) Total Protein 8.3 g/dL (6.4-8.2) Albumin 2.6 g/dL (3.4-5.0) 2.2 g/dL (3.4-5.0) Albumin/Globulin Ratio 0.5 (1.0-1.7) Ethyl Alcohol Level < 10 mg/dL (0-10) Phosphorus Level 10.7 mg/dL (2.6-4.7) Troponin I Quantitative < 0.017 ng/mL (0.000-0.055) Images Images REASON: soa PROCEDURE: CHEST AP ONLY CHEST AP ONLY INDICATION: . COMPARISON STUDY: 03/31/2016. FINDINGS: Lungs: Normal lung volume. Patchy right mid and lower lung opacities. Pleura: Moderate right pleural effusion. Heart and Mediastinum: Cardiomegaly. The great vessels of the thorax are normal. IMPRESSION: Patchy right mid and lower lung opacities, concerning for an infectious/inflammatory process. Moderate right pleural effusion. Electronically signed by: Mariano Hummel MD (11/13/2018 1:07 AM) [facility] VTE Prophylaxis Ordered VTE Prophylaxis Devices: Yes VTE Pharmacological Prophylaxi: Yes Assessment/Plan Assessment/Plan IMPRESSION: Patchy right mid and lower lung opacities, concerning for an infectious/inflammatory process. Moderate right pleural effusion. ESRD on peritoneal dialysis severe hyperkalemia volume overload sepsis severe protein-caloric malnutrition plan iv lasix 40mg x 1 consult nephrology blood culture consult ID EMPERIC IV ANTIBIOTICS ICU BED urine culture dvt prophylaxis gi prophylaxis 34 MIN CC TIME PHILLIP MENDOZA MD Nov 13, 2018 11:48
[2018-11-13] MEDS ORDERED: ACETAMINOPHEN 325 MG TABLET. PO PRN (12:15)
[2018-11-13] MEDS ORDERED: BISACODYL 10 MG SUPP.RECT. PR PRN (12:15)
[2018-11-13] MEDS ORDERED: 0.9 % SODIUM CHLORIDE 10 ML DISP.SYRIN. IV PRN (12:15)
[2018-11-13] MEDS ORDERED: FAMOTIDINE 20 MG TABLET. PO SCH (13:00)
[2018-11-13] MEDS ORDERED: PIP/TAZO PER PHARMACY MC PRN (13:15)
[2018-11-13] MEDS ORDERED: LINEZOLID 600 MG TABLET PO SCH (13:30)
[2018-11-13] MEDS: IPRATRPIUM/ALBUTEROL 0.5/2.5MG 3 ML NEBU. NEB SCH ×2 (13:59→17:02)
[2018-11-13] MEDS ORDERED: HEPARIN for SUB-Q USE 5,000 UNIT/ML VIAL. SQ SCH (14:00)
[2018-11-13 15:09] LABS: U PREG PATIENT NEGATIVE (NEG)
--- NOTE | 2018-11-13 15:26 | NUR ---
SS following for discharge planning. SS reviewed pt chart. Pt is from home and is currently requiring oxygen. No discharge needs noted at this time. SS will continue to follow for discharge planning.
[2018-11-13 15:30] LABS: AMPHETAMINE/METHAMPHETAMINE NEG (NEG); BARBITURATES NEG (NEG); BENZODIAZEPINES NEG (NEG); CANNABINOIDS NEG (NEG); COCAINE NEG (NEG); METHADONE NEG (NEG); OPIATES NEG (NEG); PHENCYCLIDINE NEG (NEG)
--- NOTE | 2018-11-13 16:13 | PDOC2 ---
CONSULT Date of Consult Date of Consult DATE: 11/13/18 TIME: 16:04 Reason for Consult Reason for Consult: HIGH K Referring Physician Referring Physician: KAMILAH Identification/Chief Complaint Chief Complaint SOB Source Source: Chart review History of Present Illness Reason for Visit: THIS IS A 33 YR OLD WITH SOB. ADMITTED WITH POSSIBLE PNA AND OR CHF. K OF 7.3. WAS AT [facility] WITH PNA AND JUST DISCHARGED ON TUESDAY. WENT HOME AND DID NOT DO ANY PD. SHE HAS ESRD AND IS ON PD CYCLER. LABS C/W ESRD. TEMPORIZING MEASURES GIVEN BY THE ER. MILD LEUCOCYTOSIS NOTED Past Medical History Cardiovascular: HTN Renal/: Chronic renal failure Endocrine: Hyperparathyroidism Family History Family History: Hypertension Social History <1 pack per day ALCOHOL: none Drugs: Marijuana Current Problem List Problem List Problems Medical Problems: (1) Accelerated hypertension Status: Acute (2) Anxiety Status: Acute Current Medications Current Medications Current Medications Nicardipine HCl 50 mg/Sodium Chloride 250 ml @ 25 mls/hr CONT PRN IV SEE I/O RECORD; Start 11/13/18 at 00:30; Stop 11/13/18 at 00:47; Status DC Lorazepam (Ativan Inj) 1 mg 1X ONCE IV Last administered on 11/13/18at 00:50; Start 11/13/18 at 00:30; Stop 11/13/18 at 00:31; Status DC Peritoneal Dialysis Solution (Continuous Cycling Peritoneal Dialysis Pt) 1 each PRN 1X PRN MC SEE COMMENTS; Start 11/13/18 at 00:45 Albuterol Sulfate (Ventolin Neb Soln) 10 mg 1X ONCE CONT NEB Last administered on 11/13/18at 01:33; Start 11/13/18 at 01:15; Stop 11/13/18 at 01:19; Status DC Dextrose (Dextrose 50%-Water Syringe) 25 gm 1X ONCE IV Last administered on 11/13/18at 01:15; Start 11/13/18 at 01:15; Stop 11/13/18 at 01:19; Status DC Insulin Human Regular (HumuLIN R VIAL) 10 unit 1X ONCE IV Last administered on 11/13/18at 01:15; Start 11/13/18 at 01:15; Stop 11/13/18 at 01:19; Status DC Calcium Gluconate (Calcium Gluconate) 1,000 mg 1X ONCE IVP Last administered on 11/13/18at 01:15; Start 11/13/18 at 01:15; Stop 11/13/18 at 01:19; Status DC Sodium Bicarbonate (Sodium Bicarb Adult 8.4% Syr) 50 meq 1X ONCE IV Last administered on 11/13/18at 01:15; Start 11/13/18 at 01:15; Stop 11/13/18 at 01:19; Status DC Sodium Polystyrene Sulfonate (Kayexalate) 15 gm 1X ONCE PO Last administered on 11/13/18at 01:15; Start 11/13/18 at 01:15; Stop 11/13/18 at 01:19; Status DC Ondansetron HCl (Zofran) 4 mg PRN Q8HRS PRN IV NAUSEA/VOMITING; Start 11/13/18 at 01:15; Stop 11/13/18 at 12:23; Status DC Heparin Sodium (Porcine) 500 unit/Vancomycin HCl 500 mg/ Potassium Chloride 20 meq/ Peritoneal Dialysis Solution 2,015 ml @ 671.667 mls/hr Q6H IP ; Start 11/13/18 at 01:15; Status UNV Info (PHARMACY MONITORING -- do not chart) 1 each PRN DAILY PRN MC SEE COMMENTS; Start 11/13/18 at 01:15 Fentanyl Citrate (Fentanyl 2ml Vial) 25 mcg 1X ONCE IV Last administered on 11/13/18at 11:20; Start 11/13/18 at 09:00; Stop 11/13/18 at 09:11; Status DC Hydralazine HCl (Apresoline Inj) 10 mg PRN Q4HRS PRN IVP ELEVATED BP, SEE COMMENTS Last administered on 11/13/18at 14:45; Start 11/13/18 at 09:00 Furosemide (Lasix) 40 mg 1X ONCE IVP Last administered on 11/13/18at 10:14; Start 11/13/18 at 10:00; Stop 11/13/18 at 10:01; Status DC Piperacillin Sod/ Tazobactam Sod 3.375 gm/Sodium Chloride 50 ml @ 100 mls/hr 1X ONCE IV ; Start 11/13/18 at 09:00; Stop 11/13/18 at 09:29; Status UNV Piperacillin Sod/ Tazobactam Sod 2.25 gm/Sodium Chloride 50 ml @ 100 mls/hr 1X ONCE IV Last administered on 11/13/18at 10:14; Start 11/13/18 at 10:00; Stop 11/13/18 at 10:29; Status DC Amlodipine Besylate (Norvasc) 10 mg DAILY PO ; Start 11/14/18 at 09:00 Metformin HCl (Glucophage) 500 mg BIDWMEALS PO ; Start 11/13/18 at 17:00 Docusate Sodium (Colace) 100 mg DAILY PO ; Start 11/13/18 at 21:00 Hydrochlorothiazide (Microzide) 12.5 mg DAILY PO ; Start 11/14/18 at 09:00 Heparin Sodium (Porcine) (Heparin Sodium) 5,000 unit Q8HRS SQ Last administered on 11/13/18at 14:19; Start 11/13/18 at 14:00 Albuterol/ Ipratropium (Duoneb) 3 ml RTQID NEB Last administered on 11/13/18at 13:59; Start 11/13/18 at 12:15 Acetaminophen (Tylenol) 650 mg PRN Q6HRS PRN PO Headaches, Temp > 101.5'; Start 11/13/18 at 12:15 Lorazepam (Ativan Inj) 0.5 mg PRN Q6HRS PRN IV ANXIETY / AGITATION; Start 11/13/18 at 12:15 Ondansetron HCl (Zofran) 4 mg PRN Q6HRS PRN IV NAUSEA/VOMITING; Start 11/13/18 at 12:15 Famotidine (Pepcid) 20 mg DAILY PO Last administered on 11/13/18at 14:19; Start 11/13/18 at 13:00 Sodium Chloride (Normal Saline Flush) 3 ml QSHIFT PRN IV AFTER MEDS AND BLOOD DRAWS; Start 11/13/18 at 12:15 Docusate Sodium (Colace) 100 mg BID PO ; Start 11/13/18 at 21:00; Stop 11/13/18 at 15:55; Status DC Bisacodyl (Dulcolax Supp) 10 mg PRN DAILY PRN NV CONSTIPATION; Start 11/13/18 at 12:15 Piperacillin Sod/ Tazobactam Sod (Zosyn Per Pharmacy) 1 each PRN DAILY PRN MC SEE COMMENTS; Start 11/13/18 at 13:15 Linezolid (Zyvox) 600 mg BID PO Last administered on 11/13/18at 14:19; Start 11/13/18 at 13:30 Piperacillin Sod/ Tazobactam Sod 2.25 gm/Sodium Chloride 50 ml @ 100 mls/hr Q8HRS IV ; Start 11/13/18 at 22:00 Active Scripts Active Reported Stool Softener (Docusate Sodium) 50 Mg Capsule 50 Mg PO BID over the counter. take this once or twice a day to avoid constipation causaed by percocet Percocet 5-325 Mg Tablet (Oxycodone/Acetaminophen) 1 Each Tablet 1 Tab PO Q4- 6HRS LAST DOSE GIVEN: Amlodipine Besylate 10 Mg Tablet 10 Mg PO DAILY Hydrochlorothiazide Tablet (Hydrochlorothiazide) 12.5 Mg Tablet Unknown Dose PO DAILY Metformin Hcl 500 Mg Tablet 1 Tab PO BID Allergies Allergies: Coded Allergies: No Known Drug Allergies (Unverified , 12/05/17) ROS Review of System UNCOOPERATIVE AND IN MILD DISTRESS Physical Exam General: Alert, Cooperative, mild distress HEENT: Atraumatic, PERRLA Lungs: Other (DECREASED AT BASES) Heart: Regular rate Abdomen: Normal bowel sounds, Soft, No tenderness Skin: No breakdown Neuro: Other (SLEEPY) Psych/Mental Status: Other (SOMNOLENT) MUSCULOSKELETAL: No deformity, No swelling Vitals VITALS Vital Signs Date Time Temp Pulse Resp B/P (MAP) Pulse Ox O2 Delivery O2 Flow Rate FiO2 11/13/18 15:00 116 24 182/79 (113) 98 Nasal Cannula 2.0 11/13/18 07:00 99.4 99.4 Labs Labs Laboratory Tests Test 11/13/18 00:30 11/13/18 04:10 11/13/18 11:55 11/13/18 14:40 White Blood Count 12.8 x10^3/uL (4.0-11.0) 11.1 x10^3/uL (4.0-11.0) Red Blood Count 2.68 x10^6/uL (3.50-5.40) 2.37 x10^6/uL (3.50-5.40) Hemoglobin 8.3 g/dL (12.0-15.5) 7.4 g/dL (12.0-15.5) Hematocrit 25.1 % (36.0-47.0) 22.2 % (36.0-47.0) Mean Corpuscular Volume 94 fL (79-100) 94 fL (79-100) Mean Corpuscular Hemoglobin 31 pg (25-35) 31 pg (25-35) Mean Corpuscular Hemoglobin Concent 33 g/dL (31-37) 33 g/dL (31-37) Red Cell Distribution Width 17.6 % (11.5-14.5) 17.7 % (11.5-14.5) Platelet Count 471 x10^3/uL (140-400) 415 x10^3/uL (140-400) Neutrophils (%) (Auto) 75 % (31-73) 71 % (31-73) Lymphocytes (%) (Auto) 11 % (24-48) 9 % (24-48) Monocytes (%) (Auto) 10 % (0-9) 16 % (0-9) Eosinophils (%) (Auto) 4 % (0-3) 3 % (0-3) Basophils (%) (Auto) 2 % (0-3) 1 % (0-3) Neutrophils # (Auto) 9.6 x10^3/uL (1.8-7.7) 7.9 x10^3/uL (1.8-7.7) Lymphocytes # (Auto) 1.3 x10^3/uL (1.0-4.8) 1.0 x10^3/uL (1.0-4.8) Monocytes # (Auto) 1.2 x10^3/uL (0.0-1.1) 1.7 x10^3/uL (0.0-1.1) Eosinophils # (Auto) 0.4 x10^3/uL (0.0-0.7) 0.3 x10^3/uL (0.0-0.7) Basophils # (Auto) 0.2 x10^3/uL (0.0-0.2) 0.1 x10^3/uL (0.0-0.2) Sodium Level 136 mmol/L (136-145) 140 mmol/L (136-145) Potassium Level 7.5 mmol/L (3.5-5.1) 6.3 mmol/L (3.5-5.1) 5.9 mmol/L (3.5-5.1) Chloride Level 95 mmol/L (98-107) 99 mmol/L (98-107) Carbon Dioxide Level 26 mmol/L (21-32) 26 mmol/L (21-32) Anion Gap 15 (6-14) 15 (6-14) Blood Urea Nitrogen 89 mg/dL (7-20) 86 mg/dL (7-20) Creatinine 13.5 mg/dL (0.6-1.0) 13.5 mg/dL (0.6-1.0) Estimated GFR (Cockcroft-Gault) 3.8 3.8 BUN/Creatinine Ratio 7 (6-20) Glucose Level 96 mg/dL (70-99) 65 mg/dL (70-99) Lactic Acid Level 0.5 mmol/L (0.4-2.0) Calcium Level 9.8 mg/dL (8.5-10.1) 9.6 mg/dL (8.5-10.1) Magnesium Level 2.2 mg/dL (1.8-2.4) Total Bilirubin 0.2 mg/dL (0.2-1.0) Aspartate Amino Transf (AST/SGOT) 43 U/L (15-37) Alanine Aminotransferase (ALT/SGPT) 25 U/L (14-59) Alkaline Phosphatase 139 U/L (46-116) Total Protein 8.3 g/dL (6.4-8.2) Albumin 2.6 g/dL (3.4-5.0) 2.2 g/dL (3.4-5.0) Albumin/Globulin Ratio 0.5 (1.0-1.7) Ethyl Alcohol Level < 10 mg/dL (0-10) Phosphorus Level 10.7 mg/dL (2.6-4.7) Troponin I Quantitative < 0.017 ng/mL (0.000-0.055) Urine Test Negative (NEG) Urine Opiates Screen Neg (NEG) Urine Methadone Screen Neg (NEG) Urine Barbiturates Neg (NEG) Urine Phencyclidine Screen Neg (NEG) Urine Amphetamine/Methamphetamine Neg (NEG) Urine Benzodiazepines Screen Neg (NEG) Urine Cocaine Screen Neg (NEG) Urine Cannabinoids Screen Neg (NEG) Urine Ethyl Alcohol Neg (NEG) Laboratory Tests Test 11/13/18 00:30 11/13/18 04:10 11/13/18 11:55 11/13/18 14:40 White Blood Count 12.8 x10^3/uL (4.0-11.0) 11.1 x10^3/uL (4.0-11.0) Red Blood Count 2.68 x10^6/uL (3.50-5.40) 2.37 x10^6/uL (3.50-5.40) Hemoglobin 8.3 g/dL (12.0-15.5) 7.4 g/dL (12.0-15.5) Hematocrit 25.1 % (36.0-47.0) 22.2 % (36.0-47.0) Mean Corpuscular Volume 94 fL (79-100) 94 fL (79-100) Mean Corpuscular Hemoglobin 31 pg (25-35) 31 pg (25-35) Mean Corpuscular Hemoglobin Concent 33 g/dL (31-37) 33 g/dL (31-37) Red Cell Distribution Width 17.6 % (11.5-14.5) 17.7 % (11.5-14.5) Platelet Count 471 x10^3/uL (140-400) 415 x10^3/uL (140-400) Neutrophils (%) (Auto) 75 % (31-73) 71 % (31-73) Lymphocytes (%) (Auto) 11 % (24-48) 9 % (24-48) Monocytes (%) (Auto) 10 % (0-9) 16 % (0-9) Eosinophils (%) (Auto) 4 % (0-3) 3 % (0-3) Basophils (%) (Auto) 2 % (0-3) 1 % (0-3) Neutrophils # (Auto) 9.6 x10^3/uL (1.8-7.7) 7.9 x10^3/uL (1.8-7.7) Lymphocytes # (Auto) 1.3 x10^3/uL (1.0-4.8) 1.0 x10^3/uL (1.0-4.8) Monocytes # (Auto) 1.2 x10^3/uL (0.0-1.1) 1.7 x10^3/uL (0.0-1.1) Eosinophils # (Auto) 0.4 x10^3/uL (0.0-0.7) 0.3 x10^3/uL (0.0-0.7) Basophils # (Auto) 0.2 x10^3/uL (0.0-0.2) 0.1 x10^3/uL (0.0-0.2) Sodium Level 136 mmol/L (136-145) 140 mmol/L (136-145) Potassium Level 7.5 mmol/L (3.5-5.1) 6.3 mmol/L (3.5-5.1) 5.9 mmol/L (3.5-5.1) Chloride Level 95 mmol/L (98-107) 99 mmol/L (98-107) Carbon Dioxide Level 26 mmol/L (21-32) 26 mmol/L (21-32) Anion Gap 15 (6-14) 15 (6-14) Blood Urea Nitrogen 89 mg/dL (7-20) 86 mg/dL (7-20) Creatinine 13.5 mg/dL (0.6-1.0) 13.5 mg/dL (0.6-1.0) Estimated GFR (Cockcroft-Gault) 3.8 3.8 BUN/Creatinine Ratio 7 (6-20) Glucose Level 96 mg/dL (70-99) 65 mg/dL (70-99) Lactic Acid Level 0.5 mmol/L (0.4-2.0) Calcium Level 9.8 mg/dL (8.5-10.1) 9.6 mg/dL (8.5-10.1) Magnesium Level 2.2 mg/dL (1.8-2.4) Total Bilirubin 0.2 mg/dL (0.2-1.0) Aspartate Amino Transf (AST/SGOT) 43 U/L (15-37) Alanine Aminotransferase (ALT/SGPT) 25 U/L (14-59) Alkaline Phosphatase 139 U/L (46-116) Total Protein 8.3 g/dL (6.4-8.2) Albumin 2.6 g/dL (3.4-5.0) 2.2 g/dL (3.4-5.0) Albumin/Globulin Ratio 0.5 (1.0-1.7) Ethyl Alcohol Level < 10 mg/dL (0-10) Phosphorus Level 10.7 mg/dL (2.6-4.7) Troponin I Quantitative < 0.017 ng/mL (0.000-0.055) Urine Test Negative (NEG) Urine Opiates Screen Neg (NEG) Urine Methadone Screen Neg (NEG) Urine Barbiturates Neg (NEG) Urine Phencyclidine Screen Neg (NEG) Urine Amphetamine/Methamphetamine Neg (NEG) Urine Benzodiazepines Screen Neg (NEG) Urine Cocaine Screen Neg (NEG) Urine Cannabinoids Screen Neg (NEG) Urine Ethyl Alcohol Neg (NEG) Assessment/Plan Assessment/Plan IMP SEVERE LIFE THREATENING HYPERKALEMIA ANEMIA LEUCOCYTOSIS POSSIBLE PNEUMONIA [id number] FAILURE SEVERE NON COMPLIANCE PLAN START SHANAE TEMPORIZING MEASURES FOR HIGH K START PD RECHECK K CONSIDER ABX WILL ASK ID TO SEE PT WILL FOLLOW ERVIN MARTINEZ MD Nov 13, 2018 16:13
[2018-11-13] MEDS ORDERED: metFORMIN 500 MG TABLET PO SCH (17:00)
[2018-11-13] MEDS ORDERED: INSU100V8 SQ (17:33)
--- NOTE | 2018-11-13 18:23 | NUR ---
Patient refused Peritoneal Dialysis. Wants to hook herself up later. Education provided on our policy with patients not administering their own peritoneal dialysis. Patient still refused. Patient requested pain medication several times today. Education pertaining to the dangers on narcotics with respiratory issues. Explain to patient that the would reevaluate tomorrow. Patient refused tylenol. Patient requested several times to go home. Educated patient on the importance of staying. Patient finally requested to go home, notified Dr. Rod, patient signed Against Medical Advise paper and cab is called. Addendum: 11/13/18 at 1909 by MIYA TYSON RN Report was given to ICU CN. Still awaiting cab.
--- NOTE | 2018-11-13 20:30 | NUR ---
Pt taken to the ED per w/c for taxi ride. Stated she just doesn't want to be on dialysis for life and so only does it "as needed". Talked with her about the importance of doing dialysis so she feels better and her labs values would be closer to normal.
[2018-11-13] MEDS ORDERED: DARBEPOETIN ALFA 60 MCG/0.3 ML DISP.SYRIN. SQ SCH (21:00)
[2018-11-13] MEDS ORDERED: DOCUSATE SODIUM 100 MG CAPSULE. PO SCH ×2 (21:00)
[2018-11-13] MEDS ORDERED: PIPERACILLIN/TAZOBACTAM 2.25 GM in IV NORMAL SALINE 50ML 50 ML IV SCH (22:00)
--- NOTE | 2018-11-13 23:52 | CONS ---
DATE OF CONSULTATION: 11/13/2018 REFERRING PHYSICIAN: Dr. Arrieta. REASON FOR CONSULTATION: Possible respiratory infection. HISTORY OF PRESENT ILLNESS: A 33-year-old female with history of end-stage renal disease, on peritoneal dialysis, presented to the ER on 11/12/2018 with shortness of breath. She missed her last dialysis session. She denied any fevers, chills, night sweats. She has cough,productive. She had borderline high white count. Chest x-ray showed patchy right mid and lower lobe opacities concerning for infectious/inflammatory process, moderate right pleural effusion. The patient received a dose of Zosyn. The patient is admitted to ICU for hyperkalemia, which is now coming down. Ethyl alcohol level is less than 10. The patient is sleepy, answers a few questions only. She said she had pain earlier. Discussed with RN. No fevers. She is not on any pressors. O2 sats is greater than 90% on room air, but the patient is requesting to be on O2. Blood cultures are done. Sputum cultures are done. Per team pt had been recently dc from [facility] for pneumonia Pt was on oral antibiotics but could not give me details on what she was on and how long she took it for. ID consult has been requested for antibiotic management. PAST MEDICAL HISTORY: Diabetes mellitus type 2, anxiety, hypertension, end-stage renal disease, on peritoneal dialysis, also has dialysis catheter, right chest, , kidney biopsy, marijuana use, hypertension. SOCIAL HISTORY: Positive for smoking. ETOH: None. Lives at home. CURRENT MEDICATIONS: One time dose of Zosyn. ALLERGIES: No known drug allergies. PHYSICAL EXAMINATION: VITAL SIGNS: Temperature 98.2, T-max 99.4, pulse 109, respiratory rate 28, blood pressure 159/79, oxygen saturation 98% on 2 liters. Upon admission, the patient's blood pressure was 217/107. GENERAL: Sleepy, but arousable female lying comfortably in bed, in no acute distress.Does not answer all quesitons, just answers a few HEENT: Normocephalic, atraumatic, anicteric. NECK: Supple, no JVD. LUNGS: Decreased breath sounds at bases, otherwise clear. HEART: S1, S2, tachycardia. No murmurs. ABDOMEN: Soft, nontender. PD catheter in place. DERMATOLOGIC: Warm, dry, no generalized rash. EXTREMITIES: No edema, no cyanosis. NEUROLOGIC: Sleepy, but arousable. Moves all 4 extremities. LABORATORY DATA: WBC 11.1, was 12.8, hemoglobin 7.4, was 8.3, platelets 415, neutrophils 71. Sodium 140, potassium 5.9, was 6.3, chloride 99, bicarbonate 26, BUN 86, creatinine 13.5, glucose 65. Lactate 0.5, albumin 2.2. Toxicology, ethyl alcohol less than 10. Blood culture pending. Sputum culture pending. IMAGING: Chest x-ray showed patchy right mid and lower lobe opacities concerning for infectious/inflammatory process. IMPRESSION: 1. Leukocytosis. Could be reactive 2. Recent discharge from per staff for pneumonia.No details available at this time, 3. Dyspnea, cough, h/o recent Pneumonia ,treated at [facility] ,CXR here shows Pulmonary infiltrates.Could be residual from recent pneumonia vs CHF 4. Moderate right pleural effusion. 5. End-stage renal disease, on peritoneal dialysis. 6. History of noncompliance. 7. Severe hyperkalemia. 8. Right chest wall catheter in place. 9. Volume overload. 10. Severe protein-calorie malnutrition. 11. Diabetes mellitus 2. 12. Anxiety. RECOMMENDATIONS: 1. Continue Zosyn, renal dosing for now 2. Add empiric Zyvox.Will deescalate soon 3. Follow up sputum and blood culture. 4. Continue supportive care. 5. Maintain aspiration precaution. 6. Obtain records from [facility] for review. Thank you, Dr. Arrieta, for consulting Infectious Disease to participate in this patient's care. If you have any questions, do not hesitate to contact. CCT time 30 minutes. Discussed with RN. MADINA REDMOND MD DR: GIOVANNI/manasa JOB#: [id number] / [id number] ROSAMARIA
[2018-11-14] MEDS ORDERED: hydroCHLOROthiazide 12.5 MG CAPSULE PO SCH (09:00)
[2018-11-14] MEDS ORDERED: amLODIPine BESYLATE 10 MG TABLET PO SCH (09:00)
--- NOTE | 2018-11-14 09:31 | PDOC3 ---
Discharge Summary Date of Admission: Nov 13, 2018 Date of Discharge: Nov 13, 2018 Follow-Up: Other (left ama) Admitting Diagnosis comment: Assessment/Plan Assessment/Plan IMPRESSION: Patchy right mid and lower lung opacities, concerning for an infec tious/inflammatory process. Moderate right pleural effusion. ESRD on peritoneal dialysis severe hyperkalemia volume overload sepsis severe protein-caloric malnutrition plan iv lasix 40mg x 1 consult nephrology blood culture consult ID EMPERIC IV ANTIBIOTICS ICU BED urine culture dvt prophylaxis gi prophylaxis 34 MIN CC TIME left ama pm 11/13 FINAL DIAGNOSIS Problems Medical Problems: (1) Accelerated hypertension Status: Acute (2) Anxiety Status: Acute Brief Hospital Course Ms. Wilder is a 33 old [sex] who presented with [ ] Discharge Medications Current Medications Nicardipine HCl 50 mg/Sodium Chloride 250 ml @ 25 mls/hr CONT PRN IV SEE I/O RECORD; Start 11/13/18 at 00:30; Stop 11/13/18 at 00:47; Status DC Lorazepam (Ativan Inj) 1 mg 1X ONCE IV Last administered on 11/13/18at 00:50; Start 11/13/18 at 00:30; Stop 11/13/18 at 00:31; Status DC Peritoneal Dialysis Solution (Continuous Cycling Peritoneal Dialysis Pt) 1 each PRN 1X PRN MC SEE COMMENTS; Start 11/13/18 at 00:45; Stop 11/13/18 at 20:57; Status DC Albuterol Sulfate (Ventolin Neb Soln) 10 mg 1X ONCE CONT NEB Last administered on 11/13/18at 01:33; Start 11/13/18 at 01:15; Stop 11/13/18 at 01:19; Status DC Dextrose (Dextrose 50%-Water Syringe) 25 gm 1X ONCE IV Last administered on 11/13/18at 01:15; Start 11/13/18 at 01:15; Stop 11/13/18 at 01:19; Status DC Insulin Human Regular (HumuLIN R VIAL) 10 unit 1X ONCE IV Last administered on 11/13/18at 01:15; Start 11/13/18 at 01:15; Stop 11/13/18 at 01:19; Status DC Calcium Gluconate (Calcium Gluconate) 1,000 mg 1X ONCE IVP Last administered on 11/13/18at 01:15; Start 11/13/18 at 01:15; Stop 11/13/18 at 01:19; Status DC Sodium Bicarbonate (Sodium Bicarb Adult 8.4% Syr) 50 meq 1X ONCE IV Last administered on 11/13/18at 01:15; Start 11/13/18 at 01:15; Stop 11/13/18 at 01:19; Status DC Sodium Polystyrene Sulfonate (Kayexalate) 15 gm 1X ONCE PO Last administered on 11/13/18at 01:15; Start 11/13/18 at 01:15; Stop 11/13/18 at 01:19; Status DC Ondansetron HCl (Zofran) 4 mg PRN Q8HRS PRN IV NAUSEA/VOMITING; Start 11/13/18 at 01:15; Stop 11/13/18 at 12:23; Status DC Heparin Sodium (Porcine) 500 unit/Vancomycin HCl 500 mg/ Potassium Chloride 20 meq/ Peritoneal Dialysis Solution 2,015 ml @ 671.667 mls/hr Q6H IP ; Start 11/13/18 at 01:15; Status UNV Info (PHARMACY MONITORING -- do not chart) 1 each PRN DAILY PRN MC SEE COMMENTS; Start 11/13/18 at 01:15; Stop 11/13/18 at 20:57; Status DC Fentanyl Citrate (Fentanyl 2ml Vial) 25 mcg 1X ONCE IV Last administered on 11/13/18at 11:20; Start 11/13/18 at 09:00; Stop 11/13/18 at 09:11; Status DC Hydralazine HCl (Apresoline Inj) 10 mg PRN Q4HRS PRN IVP ELEVATED BP, SEE COMMENTS Last administered on 11/13/18at 14:45; Start 11/13/18 at 09:00; Stop 11/13/18 at 20:57; Status DC Furosemide (Lasix) 40 mg 1X ONCE IVP Last administered on 11/13/18at 10:14; Start 11/13/18 at 10:00; Stop 11/13/18 at 10:01; Status DC Piperacillin Sod/ Tazobactam Sod 3.375 gm/Sodium Chloride 50 ml @ 100 mls/hr 1X ONCE IV ; Start 11/13/18 at 09:00; Stop 11/13/18 at 09:29; Status UNV Piperacillin Sod/ Tazobactam Sod 2.25 gm/Sodium Chloride 50 ml @ 100 mls/hr 1X ONCE IV Last administered on 11/13/18at 10:14; Start 11/13/18 at 10:00; Stop 11/13/18 at 10:29; Status DC Amlodipine Besylate (Norvasc) 10 mg DAILY PO ; Start 11/14/18 at 09:00; Stop 11/13/18 at 20:57; Status DC Metformin HCl (Glucophage) 500 mg BIDWMEALS PO Last administered on 11/13/18at 17:11; Start 11/13/18 at 17:00; Stop 11/13/18 at 20:57; Status DC Docusate Sodium (Colace) 100 mg DAILY PO ; Start 11/13/18 at 21:00; Stop 11/13/18 at 20:57; Status DC Hydrochlorothiazide (Microzide) 12.5 mg DAILY PO ; Start 11/14/18 at 09:00; Stop 11/13/18 at 20:57; Status DC Heparin Sodium (Porcine) (Heparin Sodium) 5,000 unit Q8HRS SQ Last administered on 11/13/18at 14:19; Start 11/13/18 at 14:00; Stop 11/13/18 at 20:57; Status DC Albuterol/ Ipratropium (Duoneb) 3 ml RTQID NEB Last administered on 11/13/18at 17:02; Start 11/13/18 at 12:15; Stop 11/13/18 at 20:57; Status DC Acetaminophen (Tylenol) 650 mg PRN Q6HRS PRN PO Headaches, Temp > 101.5'; Start 11/13/18 at 12:15; Stop 11/13/18 at 20:57; Status DC Lorazepam (Ativan Inj) 0.5 mg PRN Q6HRS PRN IV ANXIETY / AGITATION; Start 11/13/18 at 12:15; Stop 11/13/18 at 20:57; Status DC Ondansetron HCl (Zofran) 4 mg PRN Q6HRS PRN IV NAUSEA/VOMITING; Start 11/13/18 at 12:15; Stop 11/13/18 at 20:57; Status DC Famotidine (Pepcid) 20 mg DAILY PO Last administered on 11/13/18at 14:19; Start 11/13/18 at 13:00; Stop 11/13/18 at 20:57; Status DC Sodium Chloride (Normal Saline Flush) 3 ml QSHIFT PRN IV AFTER MEDS AND BLOOD DRAWS; Start 11/13/18 at 12:15; Stop 11/13/18 at 20:57; Status DC Docusate Sodium (Colace) 100 mg BID PO ; Start 11/13/18 at 21:00; Stop 11/13/18 at 15:55; Status DC Bisacodyl (Dulcolax Supp) 10 mg PRN DAILY PRN NC CONSTIPATION; Start 11/13/18 at 12:15; Stop 11/13/18 at 20:57; Status DC Piperacillin Sod/ Tazobactam Sod (Zosyn Per Pharmacy) 1 each PRN DAILY PRN MC SEE COMMENTS; Start 11/13/18 at 13:15; Stop 11/13/18 at 20:57; Status DC Linezolid (Zyvox) 600 mg BID PO Last administered on 11/13/18at 14:19; Start 11/13/18 at 13:30; Stop 11/13/18 at 20:57; Status DC Piperacillin Sod/ Tazobactam Sod 2.25 gm/Sodium Chloride 50 ml @ 100 mls/hr Q8HRS IV ; Start 11/13/18 at 22:00; Stop 11/13/18 at 20:57; Status DC Darbepoetin Fredrick (ARANESP for DIALYSIS PTS) 60 mcg WEEKLYHS SQ ; Start 11/13/18 at 21:00; Stop 11/13/18 at 20:57; Status DC Active Scripts Active Reported Lantus (Insulin Glargine,Hum.rec.anlog) 100 Unit/1 Ml Vial 7 Unit SQ HS Stool Softener (Docusate Sodium) 50 Mg Capsule 50 Mg PO BID over the counter. take this once or twice a day to avoid constipation causaed by percocet Percocet 5-325 Mg Tablet (Oxycodone/Acetaminophen) 1 Each Tablet 1 Tab PO Q4- 6HRS LAST DOSE GIVEN: Amlodipine Besylate 10 Mg Tablet 10 Mg PO DAILY Hydrochlorothiazide Tablet (Hydrochlorothiazide) 12.5 Mg Tablet Unknown Dose PO DAILY Vital Signs Vital Signs Date Time Temp Pulse Resp B/P (MAP) Pulse Ox O2 Delivery O2 Flow Rate FiO2 9/9/19 17:02 96 Room Air 11/13/18 17:00 125 28 155/77 (103) 2.0 11/13/18 07:00 99.4 99.4 Labs Laboratory Tests Test 11/13/18 00:30 11/13/18 04:10 11/13/18 11:55 11/13/18 14:40 White Blood Count 12.8 x10^3/uL (4.0-11.0) 11.1 x10^3/uL (4.0-11.0) Red Blood Count 2.68 x10^6/uL (3.50-5.40) 2.37 x10^6/uL (3.50-5.40) Hemoglobin 8.3 g/dL (12.0-15.5) 7.4 g/dL (12.0-15.5) Hematocrit 25.1 % (36.0-47.0) 22.2 % (36.0-47.0) Mean Corpuscular Volume 94 fL (79-100) 94 fL (79-100) Mean Corpuscular Hemoglobin 31 pg (25-35) 31 pg (25-35) Mean Corpuscular Hemoglobin Concent 33 g/dL (31-37) 33 g/dL (31-37) Red Cell Distribution Width 17.6 % (11.5-14.5) 17.7 % (11.5-14.5) Platelet Count 471 x10^3/uL (140-400) 415 x10^3/uL (140-400) Neutrophils (%) (Auto) 75 % (31-73) 71 % (31-73) Lymphocytes (%) (Auto) 11 % (24-48) 9 % (24-48) Monocytes (%) (Auto) 10 % (0-9) 16 % (0-9) Eosinophils (%) (Auto) 4 % (0-3) 3 % (0-3) Basophils (%) (Auto) 2 % (0-3) 1 % (0-3) Neutrophils # (Auto) 9.6 x10^3/uL (1.8-7.7) 7.9 x10^3/uL (1.8-7.7) Lymphocytes # (Auto) 1.3 x10^3/uL (1.0-4.8) 1.0 x10^3/uL (1.0-4.8) Monocytes # (Auto) 1.2 x10^3/uL (0.0-1.1) 1.7 x10^3/uL (0.0-1.1) Eosinophils # (Auto) 0.4 x10^3/uL (0.0-0.7) 0.3 x10^3/uL (0.0-0.7) Basophils # (Auto) 0.2 x10^3/uL (0.0-0.2) 0.1 x10^3/uL (0.0-0.2) Sodium Level 136 mmol/L (136-145) 140 mmol/L (136-145) Potassium Level 7.5 mmol/L (3.5-5.1) 6.3 mmol/L (3.5-5.1) 5.9 mmol/L (3.5-5.1) Chloride Level 95 mmol/L (98-107) 99 mmol/L (98-107) Carbon Dioxide Level 26 mmol/L (21-32) 26 mmol/L (21-32) Anion Gap 15 (6-14) 15 (6-14) Blood Urea Nitrogen 89 mg/dL (7-20) 86 mg/dL (7-20) Creatinine 13.5 mg/dL (0.6-1.0) 13.5 mg/dL (0.6-1.0) Estimated GFR (Cockcroft-Gault) 3.8 3.8 BUN/Creatinine Ratio 7 (6-20) Glucose Level 96 mg/dL (70-99) 65 mg/dL (70-99) Lactic Acid Level 0.5 mmol/L (0.4-2.0) Calcium Level 9.8 mg/dL (8.5-10.1) 9.6 mg/dL (8.5-10.1) Magnesium Level 2.2 mg/dL (1.8-2.4) Total Bilirubin 0.2 mg/dL (0.2-1.0) Aspartate Amino Transf (AST/SGOT) 43 U/L (15-37) Alanine Aminotransferase (ALT/SGPT) 25 U/L (14-59) Alkaline Phosphatase 139 U/L (46-116) Total Protein 8.3 g/dL (6.4-8.2) Albumin 2.6 g/dL (3.4-5.0) 2.2 g/dL (3.4-5.0) Albumin/Globulin Ratio 0.5 (1.0-1.7) Ethyl Alcohol Level < 10 mg/dL (0-10) Phosphorus Level 10.7 mg/dL (2.6-4.7) Troponin I Quantitative < 0.017 ng/mL (0.000-0.055) Urine Test Negative (NEG) Urine Opiates Screen Neg (NEG) Urine Methadone Screen Neg (NEG) Urine Barbiturates Neg (NEG) Urine Phencyclidine Screen Neg (NEG) Urine Amphetamine/Methamphetamine Neg (NEG) Urine Benzodiazepines Screen Neg (NEG) Urine Cocaine Screen Neg (NEG) Urine Cannabinoids Screen Neg (NEG) Urine Ethyl Alcohol Neg (NEG) Laboratory Tests Test 11/13/18 11:55 11/13/18 14:40 Potassium Level 5.9 mmol/L (3.5-5.1) Urine Test Negative (NEG) Urine Opiates Screen Neg (NEG) Urine Methadone Screen Neg (NEG) Urine Barbiturates Neg (NEG) Urine Phencyclidine Screen Neg (NEG) Urine Amphetamine/Methamphetamine Neg (NEG) Urine Benzodiazepines Screen Neg (NEG) Urine Cocaine Screen Neg (NEG) Urine Cannabinoids Screen Neg (NEG) Urine Ethyl Alcohol Neg (NEG) Allergies Allergies Coded Allergies Type Severity Reaction Last Updated Verified No Known Drug Allergies 12/05/17 No Disposition/Orders: Other (left ama) PHILLIP MENDOZA MD Nov 14, 2018 09:31
== END 2018-11-13 20:28 | disposition left against medical advice (07) | DRG 871 ==
LOC: ER 23:55 → 1 WEST ICU 11-13 01:00
PROVIDERS: ADMIT Internal Medicine; ATTEND Internal Medicine
DX: A41.9 Sepsis, unspecified organism (principal); N18.6 End stage renal disease; E43 Unspecified severe protein-calorie malnutrition; I50.30 Unspecified diastolic (congestive) heart failure; I13.2 Hypertensive heart and chronic kidney disease with heart failure and with stage 5 chronic kidney disease, or end stage renal disease; E11.22 Type 2 diabetes mellitus with diabetic chronic kidney disease; F41.9 Anxiety disorder, unspecified; F17.210 Nicotine dependence, cigarettes, uncomplicated; E87.5 Hyperkalemia; E21.3 Hyperparathyroidism, unspecified; D64.9 Anemia, unspecified; Z68.26 Body mass index [BMI] 26.0-26.9, adult; Z99.2 Dependence on renal dialysis; Z87.01 Personal history of pneumonia (recurrent); Z91.19 Patient's noncompliance with other medical treatment and regimen; Z82.49 Family history of ischemic heart disease and other diseases of the circulatory system
CPT/HCPCS: 36415; 71045; 80053; 80069; 80307; 81025; 83605; 83735; 84132; 84484; 85025; 87040; 87070; 87205; 93005; 94640; 94644; G0480; J0360; J0610; J1644; J1815; J1940; J2060; J2543; J3010; J7042; J7613; J7620; 99285-25; G0378

== ENCOUNTER 2018-12-28 10:22 | Outpatient (CLI) | payer MEDICARE, OTHER ==
[~2018-12-28] VITALS: Ht 162.6 cm; Wt 59.0 kg
[2018-12-28] VITALS (8 sets, daily range): BP systolic 116–174; BP diastolic 68–87
[~2018-12-28 10:22] MED LIST changes: +INSU100V8 SQ
[2018-12-28 11:17] LABS: BASO # 0.1 x10^3/uL (0.0-0.2); BASO % 1 % (0-3); EOS # 0.3 x10^3/uL (0.0-0.7); EOS % 4 % (0-3); HEMATOCRIT 21.8 % (36.0-47.0); HEMOGLOBIN 7.3 g/dL (12.0-15.5); LYMPH # 1.3 x10^3/uL (1.0-4.8); LYMPH % 16 % (24-48); MEAN CORPUSCULAR HEMOGLOBIN 30 pg (25-35); MEAN CORPUSCULAR HGB CONC 33 g/dL (31-37); MEAN CORPUSCULAR VOLUME 90 fL (79-100); MONO % 12 % (0-9); NEUT # 5.5 x10^3/uL (1.8-7.7); NEUT % 67 % (31-73); PLATELET COUNT 434 x10^3/uL (140-400); RED BLOOD COUNT 2.43 x10^6/uL (3.50-5.40); RED CELL DISTRIBUTION WIDTH 18.9 % (11.5-14.5); WHITE BLOOD COUNT 8.2 x10^3/uL (4.0-11.0)
[2018-12-28 11:23] LABS: CALCIUM 8.8 mg/dL (8.5-10.1); CREATININE 17.2 mg/dL (0.6-1.0); GFR 2.9; POTASSIUM 5.5 mmol/L (3.5-5.1)
[2018-12-28] MEDS ORDERED: fentaNYL PF VIAL 100 MCG/2 ML VIAL IV ONE (11:45)
[2018-12-28] MEDS ORDERED: LIDOCAINE 1%/EPI 1:100,000 20 ML VIAL. SQ ONE (11:45)
[2018-12-28] MEDS ORDERED: MIDAZOLAM HCL/PF 2 MG/2 ML VIAL. IV ONE (11:45)
[2018-12-28] MEDS ORDERED: VENL37.56 PO (11:56)
[2018-12-28] MEDS ORDERED: AMLO10TA8 PO (11:56)
[2018-12-28] MEDS ORDERED: POLY17PO29 PO (11:56)
[2018-12-28] MEDS ORDERED: FURO40TA4 PO (11:56)
[2018-12-28] MEDS ORDERED: ATOR10TA60 PO (11:56)
[2018-12-28] MEDS ORDERED: SEVE800T9 PO (11:56)
[2018-12-28] MEDS ORDERED: ASPI-630 PO (11:56)
[2018-12-28] MEDS ORDERED: FOLI0.8T21 PO (11:56)
[2018-12-28] MEDS ORDERED: AMIT75TA PO (11:56)
[2018-12-28] MEDS ORDERED: PANT20TA2 PO (11:56)
[2018-12-28] MEDS ORDERED: LEVE750T23 PO (11:56)
[2018-12-28] MEDS ORDERED: PREG50CA PO (11:56)
[2018-12-28] MEDS ORDERED: ACET500T68 PO (11:56)
[2018-12-28] MEDS ORDERED: CARV25TA2 PO (11:56)
[2018-12-28] MEDS ORDERED: IOHEXOL 240 MG/ML 50ML VIAL. ONE ×2 (12:27→13:00)
[2018-12-28] MEDS ORDERED: HEPARIN for IV BOLUS 10,000 UNIT/10 ML VIAL. ONE (12:41)
[2018-12-28] MEDS ORDERED: IOHEXOL 240 MG/ML 50ML VIAL. IART ONE (12:45)
[2018-12-28] MEDS ORDERED: CONTRAST GIVEN. MC PRN ×2 (12:45→13:15)
[2018-12-28] MEDS ORDERED: IOHEXOL 240 MG/ML 50ML VIAL. IJ ONE (13:15)
--- NOTE | 2018-12-28 14:06 | RAD ---
12/28/2018 Procedure: 1. Ultrasound and fluoroscopically guided tunneled hemodialysis catheter placement 2. Fluoroscopic evaluation of peritoneal dialysis catheter Clinical Indication: ESRD, NON FUNCTIONING PD CATHETER Sterility: All elements of maximal sterile barrier technique including the use of a cap, mask, sterile gown, sterile gloves, large sterile sheet, appropriate hand hygiene, and 2% chlorhexidine for cutaneous antisepsis (or acceptable alternative antiseptic per current guidelines) were followed for this procedure. Consent: The procedure was explained in its entirety to the patient or the patients designated credit representative by a member of the treatment team, including a discussion of the risks, benefits and commonly accepted alternatives to the procedure, as well as the expected consequences of no therapy whatsoever. Discussion of the risks included, but was not limited to, those that are most frequent and those that are rare but possibly severe or life-threatening, as well as the possibility of unforeseen complications. Technique and Findings: Following informed consent, a timeout procedure was performed. The patient was prepped and draped in the usual sterile fashion. Ultrasound interrogation of the right neck revealed patency and compressibility of the right internal jugular vein. A 21-gauge micropuncture was then used to gain access to this vein under ultrasound guidance. A hard copy ultrasound image was recorded. The needle was exchanged over a wire for a 4 Finnish sheath which was used to guide an guidewire into the IVC. Some resistance was seen at the level of the brachiocephalic vein. Contrast venography demonstrates a stenosis of the right brachiocephalic vein. A guidewire was manipulated into the IVC. The skin over the right anterior chest wall was copiously anesthetized with 1% Lidocaine and a small dermatotomy was made. A 23 cm tipped cuff palindrome tunneled hemodialysis catheter was then tunneled subcutaneously towards the neck dermatotomy and deployed through a large caliber peel-away sheath under fluoroscopic guidance such that the distal tip resided in the mid right atrium. Manual flow rates were assessed and found to be within normal limits. The catheter was then flushed, packed with Heparin, capped, and sutured to the skin. The neck dermatotomy was closed with Dermabond. No immediate complications were identified. Catheter is positioned in the right pelvis. An adjacent intrauterine device with calcified uterine leiomyoma noted. Contrast was freely administered through the catheter into the peritoneum. Catheter aspirated freely. 500 cc of fluid were was aspirated through the peritoneal dialysis catheter. A guidewire was advanced to the peritoneal and dialysis catheter. Catheter was secured in place. Sterile dressings were applied. Sedation: Conscious sedation was administered for 45 minutes. The patient was monitored by a qualified independent observer throughout the time of sedation. Please refer to the medical record for exact doses of medications utilized to achieve moderate sedation. Fluoroscopy time: 3.6 minutes. Dose area product: 26 Gycm2 Impression: 1. Placement of right internal jugular tunneled hemodialysis catheter 2. Peritoneal dialysis catheter has its tip coiled in right pelvis. Catheter appears to flush and aspirate normally.
--- NOTE | 2018-12-28 15:24 | NUR ---
Discharge Note: JORGE ESTRADA Discharge instructions and discharge home medications reviewed with Patient and a copy given. All questions have been answered and understanding verbalized. The following instructions and handouts were given: Post moderate sedation, Dialysis catheter placement, and peritoneal dialysis catheter check. Discontinued lines and drains: Right AC iv dc'd, tip intact. Patient discharged to home with motor bus driver Vikash via car.
== END 2018-12-28 15:38 | disposition home or self-care (01) ==
LOC: INTRAD 10:22
PROVIDERS: ATTEND Internal Medicine Nephrology
DX: T85.611A Breakdown (mechanical) of intraperitoneal dialysis catheter, initial encounter (principal); E11.22 Type 2 diabetes mellitus with diabetic chronic kidney disease; I12.0 Hypertensive chronic kidney disease with stage 5 chronic kidney disease or end stage renal disease; N18.6 End stage renal disease; Z79.84 Long term (current) use of oral hypoglycemic drugs; Z79.01 Long term (current) use of anticoagulants; Y83.8 Other surgical procedures as the cause of abnormal reaction of the patient, or of later complication, without mention of misadventure at the time of the procedure; Y92.89 Other specified places as the place of occurrence of the external cause
CPT/HCPCS: 36415; 36558; 49400; 74190; 76937; 77001; 80048; 85025; 85610; 99152; 99153; A4215; C1750; C1892; J0690; J2250; J3010; J3490; Q9966

== ENCOUNTER 2019-06-17 06:56 | Inpatient (IN) | payer MEDICARE, OTHER ==
[~2019-06-17] VITALS: Ht 162.6 cm; Wt 55.2 kg
[~2019-06-17 06:56] MED LIST changes: +ACET500T68 PO; +AMIT75TA PO; +ASPI-630 PO; +ATOR10TA60 PO; +CARV25TA2 PO; +FOLI0.8T21 PO; +FURO40TA4 PO; +LEVE750T23 PO; +PANT20TA2 PO; +POLY17PO29 PO; +PREG50CA PO; +SEVE800T9 PO; +TRAM50TA PO; +VENL37.56 PO
[2019-06-17] MEDS ORDERED: ONDANSETRON PF 4 MG/2 ML VIAL. ONE (07:38)
--- NOTE | 2019-06-17 07:42 | PHYS DOC ---
Past Medical History Past Medical History: Anxiety, Arthritis, Diabetes-Type II, Hypertension, Renal Failure Additional Past Medical Histor: NEUROPATHY Past Surgical History: , Other Additional Past Surgical Histo: kidney biopsy,dialysis cath R chest Smoking Status: Current Every Day Smoker Alcohol Use: None Drug Use: Marijuana General Adult EDM: Chief Complaint: SHORTNESS OF BREATH HPI: HPI: Patient is a 33 year old female with history of end-stage renal failure, on hemodialysis, was brought here by EMS from home due to trouble breathing, body aches, joint pain. Patient had dialysis yesterday and she only had 3-1/2-hour dialysis because she had trouble breathing. Patient did miss her dialysis on . Patient denies any fever, no cough. Patient denies any recent travel or exposure with anybody who tested positive for the new coronavirus. Patient denies any abdominal pain. Patient feels swollen. Patient denies any headaches, no neck pain, no chest pain. Patient has history of hypertension and diabetes. Review of Systems: Review of Systems: Constitutional: Denies fever or chills. [] Eyes: Denies change in visual acuity. [] HENT: Denies nasal congestion or sore throat. [] Respiratory: Denies cough , positive for shortness of breath. [] Cardiovascular: Denies chest pain or edema. [] GI: Denies abdominal pain, nausea, vomiting, bloody stools or diarrhea. [] : Denies dysuria. [] Musculoskeletal: Positive for back pain, joint pain. Integument: Denies rash. [] Neurologic: Denies headache, focal weakness or sensory changes. [] Endocrine: Denies polyuria or polydipsia. [] Lymphatic: Denies swollen glands. [] Psychiatric: Denies depression or anxiety. [] Heart Score: Risk Factors: Risk Factors: DM, Current or recent (<one month) smoker, HTN, HLP, family history of CAD, obesity. Risk Scores: Score 0 - 3: 2.5% MACE over next 6 weeks - Discharge Home Score 4 - 6: 20.3% MACE over next 6 weeks - Admit for Clinical Observation Score 7 - 10: 72.7% MACE over next 6 weeks - Early Invasive Strategies Current Medications: Current Medications Medications (Trade) Dose Ordered Sig/[employer] Start Time Stop Time Status Last Admin Dose Admin Ondansetron HCl (Zofran) 4 mg STK-MED ONCE 06/17/19 07:38 06/17/19 07:39 DC Allergies: Allergies: Allergies Coded Allergies Type Severity Reaction Last Updated Verified No Known Drug Allergies 12/05/17 No Physical Exam: PE: Constitutional: Well developed, well nourished, no acute distress, non-toxic appearance. [] HENT: Normocephalic, atraumatic, bilateral external ears normal, oropharynx moist, no oral exudates, nose normal. [] Eyes: PERRLA, EOMI, conjunctiva normal, no discharge. [] Neck: Normal range of motion, no tenderness, supple, no stridor. [] Cardiovascular:Heart rate regular rhythm, no murmur [] Lungs & Thorax: Bilateral breath sounds clear to auscultation [] Abdomen: Bowel sounds normal, soft, no tenderness, no masses, no pulsatile masses. ABDOMEN IS MILDLY DISTENDED. Skin: Warm, dry, no erythema, no rash. [] Back: No tenderness, no CVA tenderness. [] Extremities: No tenderness, no cyanosis, no clubbing, ROM intact, no edema. [] Neurologic: Alert and oriented X 3, normal motor function, normal sensory function, no focal deficits noted. [] Psychologic: Affect normal, judgement normal, mood normal. [] EKG: EKG: EKG was done at 828, heart rate 74 beats per minute, no ST segment elevation. [] Radiology/Procedures: Radiology/Procedures: [][facility] [address] [place], [place] [id number] IMAGING REPORT Signed PATIENT: JORGE ESTRADA RACCOUNT: [id number] : 1985 LOCATION: ER AGE: 33 SEX: F EXAM STATUS: REG ER ORD. PHYSICIAN: SEBASTIÁN DAMIAN DO REASON: soa PROCEDURE: PORTABLE CHEST 1V PORTABLE CHEST 1V INDICATION: End-stage renal disease, nonfunctioning dialysis catheter. COMPARISON STUDY: CT 05/02/2019. Radiograph 11/13/2018 FINDINGS: Life Support Devices: Right IJ central venous catheter.. Lungs: Low right lung volume. Right basilar opacities, similar to prior exams. Normal pulmonary vasculature. Pleura: Stable small right pleural effusion. Heart and Mediastinum: Cardiomegaly. Great vessels of the thorax are normal. Bones and Soft Tissues: Stable regional skeleton and soft tissues. IMPRESSION: Small right pleural effusion and right basilar opacities, similar to prior exams. No new consolidation Electronically signed by: Eliza Hummel MD (06/17/2019 8:18 AM) [id number] DICTATED and SIGNED BY: ELIZA HUMMEL MD DATE: 06/17/19817 Course & Med Decision Making: Course & Med Decision Making Pertinent Labs and Imaging studies reviewed. (See chart for details) Patient is a 33-year-old female who was evaluated in the ER today due to trouble breathing, she appears to be volume overloaded. Patient will need hemodialysis again. COVID-19 CRITERIA: The patient was evaluated during the global COVID-19 pandemic, and that diagnosis was suspected/considered upon their initial presentation. Their evaluation, treatment and testing was consistent with current guidelines for patients who present with complaints or symptoms that may be related to COVID-19. Dragon Disclaimer: Dragon Disclaimer: This electronic medical record was generated, in whole or in part, using a voice recognition dictation system. Departure Departure Impression: Primary Impression: Hypertensive urgency Additional Impressions: Volume overload ESRD (end stage renal disease) on dialysis Disposition: ADMITTED INPATIENT Admitting Physician: ELIZABETH (DR. GONSALVES) Condition: STABLE Referrals: ALEXIS BARRETT (PCP) COVID-19 Assessment: COVID-19 Patient Risks: Age 65 or older: No Sign of co-morbidity: Yes Exp to person + for COVID: No Exp to PUI: No Travel from affected area: No Lower respiratory symptoms: No Fever: No Other: No PPE Use: Full PPE with N95 mask or PAPR: Yes (N95 MASK) SEBASTIÁN DAMIAN DO Jun 17, 2019 07:42
[2019-06-17] MEDS ORDERED: MORPHINE SULFATE 4 MG/ML VIAL. IV ONE (08:00)
[2019-06-17] MEDS ORDERED: hydrALAZINE 20 MG/ML VIAL. IVP ONE (08:00)
[2019-06-17 08:01] LABS: BASO # 0.1 x10^3/uL (0.0-0.2); BASO % 1 % (0-3); EOS # 1.1 x10^3/uL (0.0-0.7); EOS % 15 % (0-3); HEMATOCRIT 25.7 % (36.0-47.0); HEMOGLOBIN 8.5 g/dL (12.0-15.5); LYMPH # 1.3 x10^3/uL (1.0-4.8); LYMPH % 17 % (24-48); MEAN CORPUSCULAR HEMOGLOBIN 29 pg (25-35); MEAN CORPUSCULAR HGB CONC 33 g/dL (31-37); MEAN CORPUSCULAR VOLUME 87 fL (79-100); MONO # 0.8 x10^3/uL (0.0-1.1); MONO % 11 % (0-9); NEUT # 4.2 x10^3/uL (1.8-7.7); NEUT % 56 % (31-73); PLATELET COUNT 344 x10^3/uL (140-400); RED BLOOD COUNT 2.94 x10^6/uL (3.50-5.40); RED CELL DISTRIBUTION WIDTH 19.8 % (11.5-14.5); WHITE BLOOD COUNT 7.4 x10^3/uL (4.0-11.0)
[2019-06-17 08:07] LABS: INFLUENZA A PATIENT NEGATIVE (NEGATIVE); INFLUENZA B PATIENT NEGATIVE (NEGATIVE)
[2019-06-17] MEDS ORDERED: ONDANSETRON PF 4 MG/2 ML VIAL. IVP ONE (08:15)
--- NOTE | 2019-06-17 08:21 | RAD ---
PORTABLE CHEST 1V INDICATION: End-stage renal disease, nonfunctioning dialysis catheter. COMPARISON STUDY: CT 05/02/2019. Radiograph 11/13/2018 FINDINGS: Life Support Devices: Right IJ central venous catheter.. Lungs: Low right lung volume. Right basilar opacities, similar to prior exams. Normal pulmonary vasculature. Pleura: Stable small right pleural effusion. Heart and Mediastinum: Cardiomegaly. Great vessels of the thorax are normal. Bones and Soft Tissues: Stable regional skeleton and soft tissues. IMPRESSION: Small right pleural effusion and right basilar opacities, similar to prior exams. No new consolidation Electronically signed by: Mariano Hummel MD (06/17/2019 8:18 AM) [id number]
[2019-06-17 08:53] LABS: PROTHROMBIN TIME PATIENT 24.7 SEC (11.7-14.0)
[2019-06-17 08:55] LABS: CALCIUM 8.7 mg/dL (8.5-10.1); GFR 9.4; POTASSIUM 4.2 mmol/L (3.5-5.1)
[2019-06-17 08:59] LABS: ALBUMIN 3.4 g/dL (3.4-5.0); ALBUMIN/GLOBULIN RATIO 0.9 (1.0-1.7); TOTAL BILIRUBIN 0.4 mg/dL (0.2-1.0); TOTAL PROTEIN 7.3 g/dL (6.4-8.2)
[2019-06-17 09:08] LABS: CREATININE 6.2 mg/dL (0.6-1.0)
[2019-06-17] MEDS ORDERED: fentaNYL PF VIAL 100 MCG/2 ML VIAL IVP ONE (09:15)
[2019-06-17] MEDS ORDERED: ONDANSETRON PF 4 MG/2 ML VIAL. IV PRN (10:15)
[2019-06-17 10:51] LABS: % BASOS 1 % (0-3); % EOS 10 % (0-5); % LYMPHS 16 % (24-48); % MONOS 10 % (0-10); % SEGS 63 % (35-66)
[2019-06-17 10:52] LABS: ANISOCYTOSIS SLIGHT; HYPOCHROMIA PRESENT; PLT ESTIMATE ADEQUATE (ADEQUATE)
[2019-06-17] MEDS: fentaNYL PF VIAL 100 MCG/2 ML VIAL IV PRN ×5 (11:13→20:20)
--- NOTE | 2019-06-17 13:07 | HP ---
ADMIT DATE: 06/17/2019 CHIEF COMPLAINT: Shortness of breath. HISTORY OF PRESENT ILLNESS: The patient is a pleasant 33-year-old female who presents to the ER with shortness of breath. She is on dialysis and dialyzed yesterday, but they did not take off much fluid and she did not go her full 4 hours because of having trouble with breathing. She rates her symptoms at 7/10. She has some associated weakness. Chest x-ray in the ER showing some volume overload and/or effusions. I discussed the case with ER physician. We are going to admit the patient and consult Pulmonary and Nephrology. PAST MEDICAL HISTORY: End-stage renal disease on dialysis, anxiety, arthritis, diabetes, hypertension, neuropathy, , right chest dialysis catheter, kidney biopsy, tobacco abuse. ALLERGIES: None. FAMILY HISTORY: Diabetes. SOCIAL HISTORY: She does not drink or take drugs. She smokes. MEDICATIONS: Reviewed, please refer to the MRAD. REVIEW OF SYSTEMS: GENERAL: No history of weight change, weakness or fevers. SKIN: No bruising, hair changes or rashes. EYES: No blurred, double or loss of vision. NOSE AND THROAT: No history of nosebleeds, hoarseness or sore throat. HEART: No history of palpitations, chest pain or shortness of breath on exertion. LUNGS: She complains of shortness of breath. GASTROINTESTINAL: Denies changes in appetite, nausea, vomiting, diarrhea or constipation. GENITOURINARY: No history of frequency, urgency, hesitancy or nocturia. NEUROLOGIC: Denies history of numbness, tingling, tremor or weakness. PSYCHIATRIC: No history of panic, anxiety or depression. ENDOCRINE: No history of heat or cold intolerance, polyuria or polydipsia. EXTREMITIES: Denies muscle weakness, joint pain, pain on walking or stiffness. PHYSICAL EXAMINATION: VITALS: Within normal limits and are stable. GENERAL: No apparent distress. Alert and oriented. HEENT: Normal cephalic atraumatic, external auditory canals are patent EYES: Extraocular muscles are intact, pupils are equally round and reactive to light and accommodation MUSCULOSKELETAL: Well developed, well nourished, good range of motion ENDOCRINE: No thyromegaly was palpated LYMPHATICS: No cervical chain or axillary nodes were noted HEMATOPOIETIC: No bruising NECK: Supple, no JVD, no thyromegaly was noted. LUNGS: She has bibasilar crackles. HEART: RRR, S1, S2 present. Peripheral pulses intact, no obvious murmurs were noted. ABDOMEN: Soft, nontender. Positive bowel sounds no organomegaly, normal bowel sounds. EXTREMITIES: Without any cyanosis, clubbing, or edema. Pedal pulses intact, Homans sign is negative. NEUROLOGIC: Normal speech, normal tone. A & O x 3, moves all extremities, no obvious focal deficits. PSYCHIATRIC: Normal affect, normal mood. Stable. SKIN: No ulcerations or rashes, good skin turgor, no jaundice. VASCULAR: Good capillary refill, neurovascular bundle appears to be intact. LABORATORY DATA: BUN is 26, creatinine 6.2, hemoglobin is 8.5. INR is 2.2. Strep testing is negative. Influenza testing is negative. Chest x-ray shows bibasilar opacities. ASSESSMENT AND PLAN: Probable volume overload versus pneumonia. The patient has been admitted. We will consult Dr. Raines and Dr. Bernstein. Home meds, DVT prophylaxis. Full code, trend labs, O2 per nasal cannula p.r.n., p.r.n. Zofran, p.r.n. fentanyl. We gave her a dose of IV hydralazine, because her pressure was a little high. Blood culture, serial enzymes. JULIAN GONSALVES DO DR: ROMINA/manasa JOB#: [id number] / [id number]
--- NOTE | 2019-06-17 13:19 | PDOC2 ---
CONSULT Date of Consult Date of Consult DATE: 06/17/19 TIME: 13:14 Reason for Consult Reason for Consult: ESRD Referring Physician Referring Physician: BRINA Identification/Chief Complaint Chief Complaint SOB Source Source: Chart review, Patient History of Present Illness Reason for Visit: THIS IS A 33 YR OLD ESRD PT WITH OP HD ON TTS. FAILED PD PT BUT NOW ON HD. STATES SHE WENT ON SAT. ADMITTED WITH SOB. IMAGING UNCHANGED FROM PREVIOUS STUDY. SHE HAS SOME SMALL RIGHT PLEURAL EFFUSION AND POSSIBLE CONGESTION. LABS ARE C/W ESRD. ESRD IS DUE TO HTN AND DM II. BELOW ADMIT NOTE REVIEWED. SHE IS VERY NON COMPLIANT HISTORY OF PRESENT ILLNESS: The patient is a pleasant 33-year-old female who presents to the ER with shortness of breath. She is on dialysis and dialyzed yesterday, but they did not take off much fluid and she did not go her full 4 hours because of having trouble with breathing. She rates her symptoms at 7/10. She has some associated weakness. Chest x-ray in the ER showing some volume overload and/or effusions. I discussed the case with ER physician. We are going to admit the patient and consult Pulmonary and Nephrology. Past Medical History Cardiovascular: HTN Heme/Onc: Other Psych: Anxiety Renal/: Chronic renal failure Endocrine: Diabetes, Hyperparathyroidism Past Surgical History Past Surgical History: , Other Family History Family History: Hypertension Social History ALCOHOL: none Drugs: Marijuana Current Problem List Problem List Problems Medical Problems: (1) Hypertensive urgency Status: Acute (2) Volume overload Status: Acute Current Medications Current Medications Current Medications Ondansetron HCl (Zofran) 4 mg STK-MED ONCE .ROUTE ; Start 06/17/19 at 07:38; Stop 06/17/19 at 07:39; Status DC Morphine Sulfate (Morphine Sulfate) 4 mg 1X ONCE IV Last administered on 06/17/19at 08:16; Start 06/17/19 at 08:00; Stop 06/17/19 at 08:01; Status DC Hydralazine HCl (Apresoline Inj) 10 mg 1X ONCE IVP Last administered on 06/17/19at 08:05; Start 06/17/19 at 08:00; Stop 06/17/19 at 08:01; Status DC Ondansetron HCl (Zofran) 4 mg 1X ONCE IVP Last administered on 06/17/19at 08:16; Start 06/17/19 at 08:15; Stop 06/17/19 at 08:16; Status DC Fentanyl Citrate (Fentanyl 2ml Vial) 100 mcg 1X ONCE IVP Last administered on 06/17/19at 09:35; Start 06/17/19 at 09:15; Stop 06/17/19 at 09:16; Status DC Ondansetron HCl (Zofran) 4 mg PRN Q8HRS PRN IV NAUSEA/VOMITING; Start 06/17/19 at 10:15; Stop 06/18/19 at 10:14 Fentanyl Citrate (Fentanyl 2ml Vial) 50 mcg PRN Q1HR PRN IV PAIN Last administered on 06/17/19at 11:13; Start 06/17/19 at 10:15; Stop 06/18/19 at 10:14 Active Scripts Active Tramadol Hcl 50 Mg Tablet 100 Mg PO PRN Q6HRS PRN 6 Days Reported Venlafaxine Hcl 37.5 Mg Tablet 37.5 Mg PO DAILY Renvela (Sevelamer Carbonate) 800 Mg Tablet 1 Tab PO TID 30 Days Wendy-Marvin Tablet (Folic Acid/Vitamin B Comp W-C) 0.8 Mg Tablet 1 Tab PO DAILY 30 Days Lyrica (Pregabalin) 50 Mg Capsule 0.5 Cap PO BID Miralax (Polyethylene Glycol 3350) 17 Gm Powd.pack 1 Packet PO DAILY 2 Days dissolve in water Protonix (Pantoprazole Sodium) 20 Mg Tablet.dr 2 Tab PO DAILY Levetiracetam 750 Mg Tab.er.24h 1 Tab PO DAILY 30 Days Carvedilol 25 Mg Tablet 25 Mg PO BIDWMEALS Atorvastatin Calcium 10 Mg Tablet 1 Tab PO DAILY Aspirin 81 Mg Tab.chew 1 Tab PO DAILY Amitriptyline Hcl 75 Mg Tablet 1 Tab PO QHS Acetaminophen 500 Mg Tablet 1 Tab PO PRN Q6HRS PRN 15 Days Lantus (Insulin Glargine,Hum.rec.anlog) 100 Unit/1 Ml Vial 10 Unit SQ HS Stool Softener (Docusate Sodium) 50 Mg Capsule 50 Mg PO BID over the counter. take this once or twice a day to avoid constipation causaed by percocet Amlodipine Besylate 10 Mg Tablet 10 Mg PO DAILY Allergies Allergies: Coded Allergies: No Known Drug Allergies (Unverified , 10/1/18) ROS General: YES: Fatigue, Appetite PSYCHOLOGICAL ROS: YES: Anxiety, Depression Eyes: Yes Decreased vision HEENT: YES: Heacaches Respiratory: YES: Cough, Shortness of breath Gastrointestinal: Yes Constipation Genitourinary: YES Other (ANURIA) Musculoskeletal: Yes Muscular Weakness Skin: Yes Dry Skin Physical Exam General: Alert, Oriented X3, Cooperative, No acute distress HEENT: Atraumatic, PERRLA Lungs: Other (DECREASED AT BASES) Heart: Regular rate Abdomen: Normal bowel sounds, No tenderness Extremities: No cyanosis Skin: No breakdown Neuro: Normal speech Psych/Mental Status: Other (FLAT) MUSCULOSKELETAL: No deformity, No swelling Vitals VITALS Vital Signs Date Time Temp Pulse Resp B/P (MAP) Pulse Ox O2 Delivery O2 Flow Rate FiO2 06/17/19 08:05 76 202/97 06/17/19 07:08 98.8 20 96 Room Air 98.8 Labs Labs Laboratory Tests Test 06/17/19 07:15 06/17/19 07:40 06/17/19 08:15 06/17/19 09:15 Influenza Type A Antigen Negative (NEGATIVE) Influenza Type B Antigen Negative (NEGATIVE) White Blood Count 7.4 x10^3/uL (4.0-11.0) Red Blood Count 2.94 x10^6/uL (3.50-5.40) Hemoglobin 8.5 g/dL (12.0-15.5) Hematocrit 25.7 % (36.0-47.0) Mean Corpuscular Volume 87 fL (79-100) Mean Corpuscular Hemoglobin 29 pg (25-35) Mean Corpuscular Hemoglobin Concent 33 g/dL (31-37) Red Cell Distribution Width 19.8 % (11.5-14.5) Platelet Count 344 x10^3/uL (140-400) Neutrophils (%) (Auto) 56 % (31-73) Lymphocytes (%) (Auto) 17 % (24-48) Monocytes (%) (Auto) 11 % (0-9) Eosinophils (%) (Auto) 15 % (0-3) Basophils (%) (Auto) 1 % (0-3) Neutrophils # (Auto) 4.2 x10^3/uL (1.8-7.7) Lymphocytes # (Auto) 1.3 x10^3/uL (1.0-4.8) Monocytes # (Auto) 0.8 x10^3/uL (0.0-1.1) Eosinophils # (Auto) 1.1 x10^3/uL (0.0-0.7) Basophils # (Auto) 0.1 x10^3/uL (0.0-0.2) Segmented Neutrophils % 63 % (35-66) Lymphocytes % 16 % (24-48) Monocytes % 10 % (0-10) Eosinophils % 10 % (0-5) Basophils % 1 % (0-3) Platelet Estimate Adequate (ADEQUATE) Large Platelets Present Hypochromasia Present Anisocytosis Slight Lactic Acid Level 0.6 mmol/L (0.4-2.0) Prothrombin Time 24.7 SEC (11.7-14.0) Prothromb Time International Ratio 2.2 (0.8-1.1) Activated Partial Thromboplast Time 46 SEC (24-38) Sodium Level 137 mmol/L (136-145) Potassium Level 4.2 mmol/L (3.5-5.1) Chloride Level 98 mmol/L (98-107) Carbon Dioxide Level 30 mmol/L (21-32) Anion Gap 9 (6-14) Blood Urea Nitrogen 26 mg/dL (7-20) Creatinine 6.2 mg/dL (0.6-1.0) Estimated GFR (Cockcroft-Gault) 9.4 BUN/Creatinine Ratio 4 (6-20) Glucose Level 132 mg/dL (70-99) Calcium Level 8.7 mg/dL (8.5-10.1) Magnesium Level 2.0 mg/dL (1.8-2.4) Total Bilirubin 0.4 mg/dL (0.2-1.0) Aspartate Amino Transf (AST/SGOT) 28 U/L (15-37) Alanine Aminotransferase (ALT/SGPT) 25 U/L (14-59) Alkaline Phosphatase 100 U/L (46-116) Troponin I Quantitative 0.471 ng/mL (0.000-0.055) Total Protein 7.3 g/dL (6.4-8.2) Albumin 3.4 g/dL (3.4-5.0) Albumin/Globulin Ratio 0.9 (1.0-1.7) Lipase 157 U/L (73-393) Group A Streptococcus Rapid Negative (NEGATIVE) Laboratory Tests Test 06/17/19 07:15 06/17/19 07:40 06/17/19 08:15 06/17/19 09:15 Influenza Type A Antigen Negative (NEGATIVE) Influenza Type B Antigen Negative (NEGATIVE) White Blood Count 7.4 x10^3/uL (4.0-11.0) Red Blood Count 2.94 x10^6/uL (3.50-5.40) Hemoglobin 8.5 g/dL (12.0-15.5) Hematocrit 25.7 % (36.0-47.0) Mean Corpuscular Volume 87 fL (79-100) Mean Corpuscular Hemoglobin 29 pg (25-35) Mean Corpuscular Hemoglobin Concent 33 g/dL (31-37) Red Cell Distribution Width 19.8 % (11.5-14.5) Platelet Count 344 x10^3/uL (140-400) Neutrophils (%) (Auto) 56 % (31-73) Lymphocytes (%) (Auto) 17 % (24-48) Monocytes (%) (Auto) 11 % (0-9) Eosinophils (%) (Auto) 15 % (0-3) Basophils (%) (Auto) 1 % (0-3) Neutrophils # (Auto) 4.2 x10^3/uL (1.8-7.7) Lymphocytes # (Auto) 1.3 x10^3/uL (1.0-4.8) Monocytes # (Auto) 0.8 x10^3/uL (0.0-1.1) Eosinophils # (Auto) 1.1 x10^3/uL (0.0-0.7) Basophils # (Auto) 0.1 x10^3/uL (0.0-0.2) Segmented Neutrophils % 63 % (35-66) Lymphocytes % 16 % (24-48) Monocytes % 10 % (0-10) Eosinophils % 10 % (0-5) Basophils % 1 % (0-3) Platelet Estimate Adequate (ADEQUATE) Large Platelets Present Hypochromasia Present Anisocytosis Slight Lactic Acid Level 0.6 mmol/L (0.4-2.0) Prothrombin Time 24.7 SEC (11.7-14.0) Prothromb Time International Ratio 2.2 (0.8-1.1) Activated Partial Thromboplast Time 46 SEC (24-38) Sodium Level 137 mmol/L (136-145) Potassium Level 4.2 mmol/L (3.5-5.1) Chloride Level 98 mmol/L (98-107) Carbon Dioxide Level 30 mmol/L (21-32) Anion Gap 9 (6-14) Blood Urea Nitrogen 26 mg/dL (7-20) Creatinine 6.2 mg/dL (0.6-1.0) Estimated GFR (Cockcroft-Gault) 9.4 BUN/Creatinine Ratio 4 (6-20) Glucose Level 132 mg/dL (70-99) Calcium Level 8.7 mg/dL (8.5-10.1) Magnesium Level 2.0 mg/dL (1.8-2.4) Total Bilirubin 0.4 mg/dL (0.2-1.0) Aspartate Amino Transf (AST/SGOT) 28 U/L (15-37) Alanine Aminotransferase (ALT/SGPT) 25 U/L (14-59) Alkaline Phosphatase 100 U/L (46-116) Troponin I Quantitative 0.471 ng/mL (0.000-0.055) Total Protein 7.3 g/dL (6.4-8.2) Albumin 3.4 g/dL (3.4-5.0) Albumin/Globulin Ratio 0.9 (1.0-1.7) Lipase 157 U/L (73-393) Group A Streptococcus Rapid Negative (NEGATIVE) Images Images CXRAY IMPRESSION: Small right pleural effusion and right basilar opacities, similar to prior exams. No new consolidation Assessment/Plan Assessment/Plan IMP DYSPNEA POSSIBLE VOLUME OVERLOAD ANEMIA DM I HTN ESRD NON COMPLIANCE PLAN HD TTS AND MORE IF NEEDED START ARANESP COVID 19 PENDING WILL FOLLOW ERVIN MARTINEZ MD Jun 17, 2019 13:19
[2019-06-17 15:00] VITALS: BP 156/72
[2019-06-17] MEDS ORDERED: WARF4TAB68 PO (16:37)
--- NOTE | 2019-06-17 16:44 | NUR ---
Pt reports feeling short of breath to this RN. Pt is 100% on RA. This RN notified Dr. Vásquez by telephone. Orders received to put pt on 1 L for comfort and give Ativan 1 mg PO Q6 PRN. Will continue to monitor pt closely.
[2019-06-17] MEDS: LORazepam 1 MG TABLET PO PRN (17:16)
--- NOTE | 2019-06-17 17:26 | NUR ---
This RN received orders by telephone per Dr. Vásquez to restart pt's home medications. This RN reviewed and reconciled home medications with pt. Will restart home medications.
[2019-06-17] MEDS: CARVEDILOL 12.5 MG TABLET. PO SCH (17:58)
[2019-06-17] MEDS: WARFARIN 4 MG TABLET. PO SCH (17:58)
[2019-06-17 19:00] VITALS: BP 170/83
[2019-06-17] MEDS: PREGABALIN 25 MG CAPSULE PO SCH (20:19)
[2019-06-17] MEDS: AMITRIPTYLINE HCL 25 MG TABLET. PO SCH (20:19)
--- NOTE | 2019-06-17 20:56 | CONS ---
DATE OF CONSULTATION: PULMONARY CONSULTATION ATTENDING PHYSICIAN: Dr. Vásquez. REASON FOR CONSULTATION: Dyspnea. HISTORY OF PRESENT ILLNESS: The patient is 33-year-old who has history of end-stage renal disease, on hemodialysis and history of multiple other chronic medical problems. She was brought into the hospital after she was complaining of shortness of breath. They could not take much fluid off and could not finish full 4 hours of dialysis. The patient denied any cough. Denies any chest pain, no fever, no chills. The patient smoked for about 18 years and still smokes cigarettes. Her saturation on room air was 91%. She was noted to have a high blood pressure of 179/81 in the ER. I have reviewed the patient's chest x-ray and it shows right lower lobe chronic-appearing small pleural effusion as well as a patchy parenchymal scarring in the right lower lobe. This was a similar finding based on chest x-ray from 11/13/2018. The patient also had a CT chest beginning of this year and it shows calcification in the right lower lobe along with small right lower lobe pleural effusions. Currently, she is requiring 1 L of oxygen. I have been asked to see her for further evaluation. PAST MEDICAL HISTORY: Significant for history of end-stage renal disease, on hemodialysis; history of anxiety, arthritis, diabetes, hypertension, neuropathy, , right dialysis catheter, renal biopsy, and tobacco use. PAST SURGICAL HISTORY: As discussed above. ALLERGIES: None. FAMILY HISTORY: Diabetes. SOCIAL HISTORY: Smoked for about 18 years and still smokes cigarettes. REVIEW OF SYSTEMS: Reviewed. Twelve-point system obtained. Pertinent positives discussed in my history of present illness, otherwise, noncontributory. All systems that were negative were reviewed as well. ALLERGIES: None. CURRENT MEDICATIONS: Reviewed as listed in the [facility] including warfarin. She reportedly had a PE at few months ago. FAMILY HISTORY: Noncontributory to lungs. PHYSICAL EXAMINATION: VITAL SIGNS: Reviewed. Blood pressure 170/83, pulse ox 91-99% on 1 L. GENERAL: Exam was performed via telemedicine. She does not appear to be in any obvious respiratory distress. She responds to questions. Skin with no obvious rash. EXTREMITIES: With no obvious leg edema. LABORATORY DATA: Reviewed. White cell count 7.4, hemoglobin 8.5, platelets are 344. BUN 26, creatinine 6.2. Troponin level is 0.47. INR is 2.2. Influenza screen is negative. COVID-19 test pending. IMPRESSION: 1. Dyspnea with mild hypoxia, likely related to acute on chronic diastolic heart failure. 2. Less clinical suspicion for COVID-19 infection. 3. End-stage renal disease, on hemodialysis. 4. Hypertension, under suboptimal control. 5. Reported history of PE 2 months ago at , details of which not available, but it has been therapeutic, on anticoagulation with warfarin. 6. Eighteen years of tobacco use and still smokes cigarettes. 7. Mildly increased troponin level. 8. Abnormal chest x-ray with unchanged right lower lobe small pleural effusion/pleural thickening along with parenchymal scarring in the right lower lobe. Her CT chest previously had shown calcification in the right lower lobe. Overall, findings are unchanged. No acute infectious process seen on the chest x-ray. RECOMMENDATIONS: 1. Continue with present oxygen 1 L. 2. Follow Nephrology recommendations along with continuing with hemodialysis and ultrafiltration. 3. Optimization of blood pressure per Cardiology. 4. We will obtain COVID-19 test. Clinical suspicion for that is low. 5. Continue warfarin and keep the INR therapeutic.. 6. Smoking cessation counseling provided. 7. If COVID testing is negative, she could be discharged home. 8. Obtain echocardiogram to assess for LV dysfunction and also to rule out any pericardial effusion. 9. Discussed with RN and consultation done via telemedicine. RICHAR HILL MD DR: MANISHA/manasa JOB#: [id number] / [id number]
--- NOTE | 2019-06-17 22:43 | EKG ---
[facility] [address] [place] [address] Test Date: 2019-06-17 Test Time: 08:28:13 Pat Name: JORGE ESTRADA Department: Room: 648 1 Gender: F Ivory Carver: : 1985 Requested By: SBEASTIÁN DAMIAN Order Number: [id number] Reading MD: Geoff Kaur MD Measurements Intervals [place] Rate: 74 P: 49 WV: 160 QRS: 43 QRSD: 84 T: 69 QT: 416 QTc: 462 Interpretive Statements SINUS RHYTHM Electronically Signed On 06-18-2019 9:48:16 CDT by Geoff Kaur MD
[2019-06-17 23:01] VITALS: BP 192/98
[2019-06-18 03:02] VITALS: BP 166/85
[2019-06-18 07:00] VITALS: BP 181/87
[2019-06-18 07:12] LABS: PROTHROMBIN TIME PATIENT 26.3 SEC (11.7-14.0)
[2019-06-18] MEDS ORDERED: IV NORMAL SALINE 1000ML BAG 1,000 ML IV PRN ×2 (07:58)
[2019-06-18] MEDS ORDERED: 0.9 % SODIUM CHLORIDE 10 ML DISP.SYRIN. IV PRN ×2 (08:00)
[2019-06-18] MEDS ORDERED: DIALYSIS PATIENT. MC PRN ×2 (08:00)
[2019-06-18] MEDS ORDERED: ALBUMIN HUMAN 25% 200 ML IV PRN (08:00)
[2019-06-18] MEDS: FOLIC/VIT B COMP W-C (RENAL) TABLET. PO SCH (08:32)
[2019-06-18] MEDS: PREGABALIN 25 MG CAPSULE PO SCH ×2 (08:32→19:26)
[2019-06-18] MEDS: amLODIPine BESYLATE 10 MG TABLET PO SCH (08:33)
[2019-06-18] MEDS: PANTOPRAZOLE 40 MG TABLET.DR. PO SCH (08:33)
[2019-06-18] MEDS: ASPIRIN CHEWABLE 81 MG TABLET. PO SCH (08:33)
[2019-06-18] MEDS: CARVEDILOL 12.5 MG TABLET. PO SCH ×2 (08:33→17:57)
[2019-06-18] MEDS: VENLAFAXINE XR 37.5 MG CAP.ER.24H. PO SCH (08:34)
[2019-06-18] MEDS: SEVELAMER CARBONATE 800 MG TABLET. PO SCH ×3 (08:34→17:55)
[2019-06-18] MEDS: levETIRAcetam 250 MG TABLET PO SCH ×2 (08:36→19:27)
--- NOTE | 2019-06-18 08:43 | PDOC ---
PULMONARY PROGRESS NOTES Subjective no soa, on RA Vitals Vital Signs Date Time Temp Pulse Resp B/P (MAP) Pulse Ox O2 Delivery O2 Flow Rate FiO2 06/18/19 08:33 70 181/87 06/18/19 07:00 98.2 16 87 Nasal Cannula 2.0 98.2 Comments visual exam done via telemedicine no SOA, on RA no skin rash no leg edema General: Alert, No acute distress Labs Laboratory Tests Test 06/17/19 07:15 06/17/19 07:40 06/17/19 08:15 06/17/19 09:15 Influenza Type A Antigen Negative (NEGATIVE) Influenza Type B Antigen Negative (NEGATIVE) White Blood Count 7.4 x10^3/uL (4.0-11.0) Red Blood Count 2.94 x10^6/uL (3.50-5.40) Hemoglobin 8.5 g/dL (12.0-15.5) Hematocrit 25.7 % (36.0-47.0) Mean Corpuscular Volume 87 fL (79-100) Mean Corpuscular Hemoglobin 29 pg (25-35) Mean Corpuscular Hemoglobin Concent 33 g/dL (31-37) Red Cell Distribution Width 19.8 % (11.5-14.5) Platelet Count 344 x10^3/uL (140-400) Neutrophils (%) (Auto) 56 % (31-73) Lymphocytes (%) (Auto) 17 % (24-48) Monocytes (%) (Auto) 11 % (0-9) Eosinophils (%) (Auto) 15 % (0-3) Basophils (%) (Auto) 1 % (0-3) Neutrophils # (Auto) 4.2 x10^3/uL (1.8-7.7) Lymphocytes # (Auto) 1.3 x10^3/uL (1.0-4.8) Monocytes # (Auto) 0.8 x10^3/uL (0.0-1.1) Eosinophils # (Auto) 1.1 x10^3/uL (0.0-0.7) Basophils # (Auto) 0.1 x10^3/uL (0.0-0.2) Segmented Neutrophils % 63 % (35-66) Lymphocytes % 16 % (24-48) Monocytes % 10 % (0-10) Eosinophils % 10 % (0-5) Basophils % 1 % (0-3) Platelet Estimate Adequate (ADEQUATE) Large Platelets Present Hypochromasia Present Anisocytosis Slight Lactic Acid Level 0.6 mmol/L (0.4-2.0) Prothrombin Time 24.7 SEC (11.7-14.0) Prothromb Time International Ratio 2.2 (0.8-1.1) Activated Partial Thromboplast Time 46 SEC (24-38) Sodium Level 137 mmol/L (136-145) Potassium Level 4.2 mmol/L (3.5-5.1) Chloride Level 98 mmol/L (98-107) Carbon Dioxide Level 30 mmol/L (21-32) Anion Gap 9 (6-14) Blood Urea Nitrogen 26 mg/dL (7-20) Creatinine 6.2 mg/dL (0.6-1.0) Estimated GFR (Cockcroft-Gault) 9.4 BUN/Creatinine Ratio 4 (6-20) Glucose Level 132 mg/dL (70-99) Calcium Level 8.7 mg/dL (8.5-10.1) Magnesium Level 2.0 mg/dL (1.8-2.4) Total Bilirubin 0.4 mg/dL (0.2-1.0) Aspartate Amino Transf (AST/SGOT) 28 U/L (15-37) Alanine Aminotransferase (ALT/SGPT) 25 U/L (14-59) Alkaline Phosphatase 100 U/L (46-116) Troponin I Quantitative 0.471 ng/mL (0.000-0.055) Total Protein 7.3 g/dL (6.4-8.2) Albumin 3.4 g/dL (3.4-5.0) Albumin/Globulin Ratio 0.9 (1.0-1.7) Lipase 157 U/L (73-393) Group A Streptococcus Rapid Negative (NEGATIVE) Test 06/18/19 05:20 Prothrombin Time 26.3 SEC (11.7-14.0) Prothromb Time International Ratio 2.4 (0.8-1.1) Laboratory Tests Test 06/17/19 09:15 06/18/19 05:20 Group A Streptococcus Rapid Negative (NEGATIVE) Prothrombin Time 26.3 SEC (11.7-14.0) Prothromb Time International Ratio 2.4 (0.8-1.1) Medications Active Scripts Medications Dose Route/Sig Max Daily Dose Days Date Category Coumadin (Warfarin Sodium) 4 Mg Tablet 1 Tab PO DAILY 06/17/19 Reported Venlafaxine Hcl 37.5 Mg Tablet 37.5 Mg PO DAILY 12/28/18 Reported Renvela (Sevelamer Carbonate) 800 Mg Tablet 1 Tab PO TID 30 12/28/18 Reported Wendy-Marvin Tablet (Folic Acid/Vitamin B Comp W-C) 0.8 Mg Tablet 1 Tab PO DAILY 30 12/28/18 Reported Lyrica (Pregabalin) 50 Mg Capsule 0.5 Cap PO BID 12/28/18 Reported Protonix (Pantoprazole Sodium) 20 Mg Tablet.dr 2 Tab PO DAILY 12/28/18 Reported Levetiracetam 750 Mg Tab.er.24h 1 Tab PO DAILY 30 12/28/18 Reported Carvedilol 25 Mg Tablet 25 Mg PO BIDWMEALS 12/28/18 Reported Aspirin 81 Mg Tab.chew 1 Tab PO DAILY 12/28/18 Reported Amitriptyline Hcl 75 Mg Tablet 1 Tab PO QHS 12/28/18 Reported Amlodipine Besylate 10 Mg Tablet 10 Mg PO DAILY 12/05/17 Reported Impression . 1. Dyspnea with mild hypoxia, likely related to acute on chronic diastolic heart failure. resolved 2. Less clinical suspicion for COVID-19 infection. 3. End-stage renal disease, on hemodialysis. 4. Hypertension, under suboptimal control. 5. Reported history of PE 2 months ago at , details of which not available, but it has been therapeutic, on anticoagulation with warfarin. 6. Eighteen years of tobacco use and still smokes cigarettes. 7. Mildly increased troponin level. 8. Abnormal chest x-ray with unchanged right lower lobe small pleural effusion/pleural thickening along with parenchymal scarring in the right lower lobe. Her CT chest previously had shown calcification in the right lower lobe. Overall, findings are unchanged. No acute infectious process seen on the chest x-ray. Plan . 1. Off oxygen, on RA now 2. Follow Nephrology recommendations along with continuing with hemodialysis and ultrafiltration today 3. Optimization of blood pressure per Cardiology. 4. We will obtain COVID-19 test. Clinical suspicion for that is low. 5. Continue warfarin and keep the INR therapeutic.. 6. Smoking cessation counseling provided. 7. If COVID testing is negative, she could be discharged home. 8. Obtain echocardiogram to assess for LV dysfunction and also to rule out any pericardial effusion. 9. Discussed with RN Call us for any questions. will see RICHAR ISABEL MD Jun 18, 2019 08:43
--- NOTE | 2019-06-18 10:46 | NUR ---
SW following. Discussed with RN, pt from home, dialysis today. SW to find out where pt does dialysis in the community. COVID-19 test pending. SW will continue to follow.
--- NOTE | 2019-06-18 11:00 | PDOC ---
Renal-Progress Notes Subjective Notes Notes SOB History of Present Illness Hx of present illness STABLE Vitals Vitals Vital Signs Date Time Temp Pulse Resp B/P (MAP) Pulse Ox O2 Delivery O2 Flow Rate FiO2 06/18/19 08:33 70 181/87 06/18/19 07:00 98.2 16 87 Nasal Cannula 2.0 98.2 Weight Weight [ ] I.O. Intake and Output Intake and Output 06/18/19 07:00 Intake Total 120 ml Output Total 0 ml Balance 120 ml Intake Oral 120 ml Output Urine Total 0 ml # Voids 1 Labs Labs Laboratory Tests Test 06/18/19 05:20 Prothrombin Time 26.3 SEC (11.7-14.0) Prothromb Time International Ratio 2.4 (0.8-1.1) Troponin I Quantitative 0.264 ng/mL (0.000-0.055) Micro Micro Microbiology 06/17/19 Blood Culture - Preliminary, Resulted NO GROWTH AFTER 1 DAY Review of Systems Constitutional: yes: weakness, alert Ears/Nose/Throat: Yes: no symptom reported Eyes: Yes: no symptom reported Pulmonary: Yes dyspnea Cardiovascular: Yes no symptom reported Gastrointestional: Yes: constipation Genitourinary: Yes: no symptom reported Musculoskeletal: Yes: muscle stiffness Skin: Yes no symptom reported Psychiatric/Neurological: Yes: no symptom reported Endocrine: Yes: no symptom reported Physical Exam General Appearance: no apparent distress Skin: warm Respiratory: decreased breath sounds Heart: S1S2 Abdomen: soft Genitourinary: bladder flat Extremities: pulses present, no edema Neurology: alert, oriented Assessment Assessment IMP DYSPNEA VOLUME OVERLOAD ANEMIA DM I HTN ESRD-TTS NON COMPLIANCE PLAN HD TODAY UF ABOUT 2.5 LITERS STARTED DONNA COVID 19 PENDING WILL FOLLOW ERVIN MARTINEZ MD Jun 18, 2019 11:00
--- NOTE | 2019-06-18 11:24 | NUR ---
Pharmacy Warfarin Dosing Note S:Pharmacy consulted to assist with anticoagulation therapy started with target INR: 2 -3 O:JORGE ESTRADA is a 33 year old F with h/o PE LABS: Last INR: 2.4 Last HGB: 8.5 Last HCT: 25.7 Last PLT: 344 Last dose of 4 mg given on 06/17/19 at 1758. A:INR of 2.4 is within desired range. Target range for this patient is: 2 -3 P: Warfarin dose: 4 mg Today at 1600 Bridge Therapy: None Next INR due 06/19/19. Pharmacy anticoagulation service will continue to follow. JAIDA IBRAHIM RPH, 06/18/19 [id number]
--- NOTE | 2019-06-18 12:54 | PDOC ---
PROGRESS NOTES Chief Complaint Chief Complaint Acute on chronic diastolic heart failure End-stage renal disease on hemodialysis Uncontrolled essential hypertension History of pulmonary embolism diagnosed at outside facility ([facility]) currently on warfarin anticoagulation Tobacco abuse Elevated troponin in the setting of end-stage renal disease with no symptoms very unlikely an acute event most likely a consequence of demand ischemia or type II elevation of troponin Right lower lobe pleural effusion most likely a consequence of the above- mentioned diastolic dysfunction and fluid overload History of anxiety Plan Wait for results of coronavirus testing Continue with recommendations from pulmonology Resume home medications Dialysis as per nephrology Further recommendations based on the clinical course DVT prophylaxis, patient fully anticoagulated with Coumadin History of Present Illness History of Present Illness No acute events reported overnight, case discussed with nursing staff patient in no acute distress no complaints during my visit Vitals Vitals Vital Signs Date Time Temp Pulse Resp B/P (MAP) Pulse Ox O2 Delivery O2 Flow Rate FiO2 06/18/19 08:33 70 181/87 06/18/19 08:00 Room Air 06/18/19 07:00 98.2 16 87 2.0 98.2 Physical Exam General: Alert, Oriented X3, Cooperative, No acute distress Heart: Regular rate Abdomen: Normal bowel sounds, No tenderness Extremities: No cyanosis Skin: No breakdown Labs LABS Laboratory Tests Test 06/18/19 05:20 Prothrombin Time 26.3 SEC (11.7-14.0) Prothromb Time International Ratio 2.4 (0.8-1.1) Troponin I Quantitative 0.264 ng/mL (0.000-0.055) Assessment and Plan Assessmemt and Plan Problems Medical Problems: (1) Hypertensive urgency Status: Acute (2) Volume overload Status: Acute Comment Review of Relevant I have reviewed the following items jamie (where applicable) has been applied. Labs Laboratory Tests Test 06/17/19 07:15 06/17/19 07:40 06/17/19 08:15 06/17/19 09:15 Influenza Type A Antigen Negative (NEGATIVE) Influenza Type B Antigen Negative (NEGATIVE) White Blood Count 7.4 x10^3/uL (4.0-11.0) Red Blood Count 2.94 x10^6/uL (3.50-5.40) Hemoglobin 8.5 g/dL (12.0-15.5) Hematocrit 25.7 % (36.0-47.0) Mean Corpuscular Volume 87 fL (79-100) Mean Corpuscular Hemoglobin 29 pg (25-35) Mean Corpuscular Hemoglobin Concent 33 g/dL (31-37) Red Cell Distribution Width 19.8 % (11.5-14.5) Platelet Count 344 x10^3/uL (140-400) Neutrophils (%) (Auto) 56 % (31-73) Lymphocytes (%) (Auto) 17 % (24-48) Monocytes (%) (Auto) 11 % (0-9) Eosinophils (%) (Auto) 15 % (0-3) Basophils (%) (Auto) 1 % (0-3) Neutrophils # (Auto) 4.2 x10^3/uL (1.8-7.7) Lymphocytes # (Auto) 1.3 x10^3/uL (1.0-4.8) Monocytes # (Auto) 0.8 x10^3/uL (0.0-1.1) Eosinophils # (Auto) 1.1 x10^3/uL (0.0-0.7) Basophils # (Auto) 0.1 x10^3/uL (0.0-0.2) Segmented Neutrophils % 63 % (35-66) Lymphocytes % 16 % (24-48) Monocytes % 10 % (0-10) Eosinophils % 10 % (0-5) Basophils % 1 % (0-3) Platelet Estimate Adequate (ADEQUATE) Large Platelets Present Hypochromasia Present Anisocytosis Slight Lactic Acid Level 0.6 mmol/L (0.4-2.0) Prothrombin Time 24.7 SEC (11.7-14.0) Prothromb Time International Ratio 2.2 (0.8-1.1) Activated Partial Thromboplast Time 46 SEC (24-38) Sodium Level 137 mmol/L (136-145) Potassium Level 4.2 mmol/L (3.5-5.1) Chloride Level 98 mmol/L (98-107) Carbon Dioxide Level 30 mmol/L (21-32) Anion Gap 9 (6-14) Blood Urea Nitrogen 26 mg/dL (7-20) Creatinine 6.2 mg/dL (0.6-1.0) Estimated GFR (Cockcroft-Gault) 9.4 BUN/Creatinine Ratio 4 (6-20) Glucose Level 132 mg/dL (70-99) Calcium Level 8.7 mg/dL (8.5-10.1) Magnesium Level 2.0 mg/dL (1.8-2.4) Total Bilirubin 0.4 mg/dL (0.2-1.0) Aspartate Amino Transf (AST/SGOT) 28 U/L (15-37) Alanine Aminotransferase (ALT/SGPT) 25 U/L (14-59) Alkaline Phosphatase 100 U/L (46-116) Troponin I Quantitative 0.471 ng/mL (0.000-0.055) Total Protein 7.3 g/dL (6.4-8.2) Albumin 3.4 g/dL (3.4-5.0) Albumin/Globulin Ratio 0.9 (1.0-1.7) Lipase 157 U/L (73-393) Group A Streptococcus Rapid Negative (NEGATIVE) Test 06/18/19 05:20 Prothrombin Time 26.3 SEC (11.7-14.0) Prothromb Time International Ratio 2.4 (0.8-1.1) Troponin I Quantitative 0.264 ng/mL (0.000-0.055) Laboratory Tests Test 06/18/19 05:20 Prothrombin Time 26.3 SEC (11.7-14.0) Prothromb Time International Ratio 2.4 (0.8-1.1) Troponin I Quantitative 0.264 ng/mL (0.000-0.055) Microbiology 06/17/19 Blood Culture - Preliminary, Resulted NO GROWTH AFTER 1 DAY Medications Current Medications Ondansetron HCl (Zofran) 4 mg STK-MED ONCE .ROUTE ; Start 06/17/19 at 07:38; Stop 06/17/19 at 07:39; Status DC Morphine Sulfate (Morphine Sulfate) 4 mg 1X ONCE IV Last administered on 06/17/19at 08:16; Start 06/17/19 at 08:00; Stop 06/17/19 at 08:01; Status DC Hydralazine HCl (Apresoline Inj) 10 mg 1X ONCE IVP Last administered on 06/17/19at 08:05; Start 06/17/19 at 08:00; Stop 06/17/19 at 08:01; Status DC Ondansetron HCl (Zofran) 4 mg 1X ONCE IVP Last administered on 06/17/19 08:16 ; Start 06/17/19 at 08:15; Stop 06/17/19 at 08:16; Status DC Fentanyl Citrate (Fentanyl 2ml Vial) 100 mcg 1X ONCE IVP Last administered on 06/17/19at 09:35; Start 06/17/19 at 09:15; Stop 06/17/19 at 09:16; Status DC Ondansetron HCl (Zofran) 4 mg PRN Q8HRS PRN IV NAUSEA/VOMITING Last administered on 06/17/19at 20:19; Start 06/17/19 at 10:15; Stop 06/18/19 at 10:14; Status DC Fentanyl Citrate (Fentanyl 2ml Vial) 50 mcg PRN Q1HR PRN IV PAIN Last administered on 06/17/19 20:20; Start 06/17/19 at 10:15; Stop 06/18/19 at 10:14; Status DC Darbepoetin Fredrick (ARANESP for DIALYSIS PTS) 60 mcg WEEKLYHS SQ ; Start 06/18/19 at 21:00 Lorazepam (Ativan) 1 mg PRN Q6HRS PRN PO ANXIETY / AGITATION Last administered on 06/17/19 17:16; Start 06/17/19 at 16:45 Amlodipine Besylate (Norvasc) 10 mg DAILY PO Last administered on 06/18/19 08:33; Start 06/18/19 at 09:00 Aspirin (Aspirin Chewable) 81 mg DAILY PO Last administered on 06/18/19 08:33; Start 06/18/19 at 09:00 Vitamin B Complex/ Vitamin C (Wendy-Marvin) 1 tab DAILY PO Last administered on 06/18/19 08:32; Start 06/18/19 at 09:00 Pregabalin (Lyrica) 25 mg BID PO Last administered on 06/18/19 08:32; Start 06/17/19 at 21:00 Sevelamer Carbonate (Renvela) 800 mg TIDWMEALS PO Last administered on 06/18/19 08:34; Start 06/18/19 at 08:00 Warfarin Sodium (Coumadin) 4 mg DAILY16 PO Last administered on 06/17/19 17:58; Start 06/17/19 at 18:00 Amitriptyline HCl (Elavil) 75 mg QHS PO Last administered on 06/17/19at 20:19; Start 06/17/19 at 21:00 Carvedilol (Coreg) 25 mg BIDWMEALS PO Last administered on 06/18/19at 08:33; Start 06/17/19 at 18:00 Levetiracetam (Keppra) 375 mg BID PO Last administered on 06/18/19at 08:36; Start 06/18/19 at 09:00 Pantoprazole Sodium (Protonix) 40 mg DAILYAC PO Last administered on 06/18/19at 08:33; Start 06/18/19 at 07:30 Venlafaxine HCl (Effexor Xr) 37.5 mg DAILY PO Last administered on 06/18/19at 08:34; Start 06/18/19 at 09:00 Warfarin Sodium (Coumadin Per Pharmacy) 1 each PRN DAILY PRN MC SEE COMMENTS Last administered on 06/18/19at 11:24; Start 06/17/19 at 17:45 Sodium Chloride 1,000 ml @ 1,000 mls/hr Q1H PRN IV hypotension; Start 06/18/19 at 07:58; Stop 06/18/19 at 13:57 Albumin Human 200 ml @ 200 mls/hr 1X PRN PRN IV Hypotension; Start 06/18/19 at 08:00; Stop 06/18/19 at 13:59 Sodium Chloride (Normal Saline Flush) 10 ml 1X PRN PRN IV AP catheter pack; Start 06/18/19 at 08:00; Stop 06/19/19 at 07:59 Sodium Chloride (Normal Saline Flush) 10 ml 1X PRN PRN IV LUSTER REPAIRER catheter pack; Start 06/18/19 at 08:00; Stop 06/19/19 at 07:59 Sodium Chloride 1,000 ml @ 400 mls/hr Q2H30M PRN IV PATENCY; Start 06/18/19 at 07:58; Stop 06/18/19 at 19:57 Info (PHARMACY MONITORING -- do not chart) 1 each PRN DAILY PRN MC SEE COMMENTS; Start 06/18/19 at 08:00; Status UNV Info (PHARMACY MONITORING -- do not chart) 1 each PRN DAILY PRN MC SEE COMMENTS; Start 06/18/19 at 08:00 Active Scripts Active Reported Coumadin (Warfarin Sodium) 4 Mg Tablet 1 Tab PO DAILY Venlafaxine Hcl 37.5 Mg Tablet 37.5 Mg PO DAILY Renvela (Sevelamer Carbonate) 800 Mg Tablet 1 Tab PO TID 30 Days Wendy-Marvin Tablet (Folic Acid/Vitamin B Comp W-C) 0.8 Mg Tablet 1 Tab PO DAILY 30 Days Lyrica (Pregabalin) 50 Mg Capsule 0.5 Cap PO BID Protonix (Pantoprazole Sodium) 20 Mg Tablet.dr 2 Tab PO DAILY Levetiracetam 750 Mg Tab.er.24h 1 Tab PO DAILY 30 Days Carvedilol 25 Mg Tablet 25 Mg PO BIDWMEALS Aspirin 81 Mg Tab.chew 1 Tab PO DAILY Amitriptyline Hcl 75 Mg Tablet 1 Tab PO QHS Amlodipine Besylate 10 Mg Tablet 10 Mg PO DAILY Vitals/I & O Vital Sign - Last 24 Hours 06/17/19 06/17/19 06/17/19 06/17/19 14:49 15:00 17:58 19:00 Temp 98.3 98.7 98.3 98.7 Pulse 73 73 78 Resp 18 B/P (MAP) 156/72 (100) 156/72 170/83 (112) Pulse Ox 91 99 O2 Delivery Room Air Room Air Nasal Cannula 06/17/19 06/17/19 06/17/19 06/17/19 20:20 20:20 20:50 23:01 Temp 98.4 98.4 Pulse 75 Resp 18 20 20 B/P (MAP) 192/98 (129) Pulse Ox 97 O2 Delivery Nasal Cannula Nasal Cannula Nasal Cannula Nasal Cannula O2 Flow Rate 1.0 1.0 1.0 06/18/19 06/18/19 06/18/19 06/18/19 03:02 07:00 08:00 08:33 Temp 98.1 98.2 98.1 98.2 Pulse 75 70 70 Resp 20 16 B/P (MAP) 166/85 (112) 181/87 (118) 181/87 Pulse Ox 91 87 O2 Delivery Nasal Cannula Nasal Cannula Room Air O2 Flow Rate 2.0 06/18/19 08:33 Pulse 70 B/P (MAP) 181/87 Intake and Output 06/17/19 06/17/19 06/18/19 15:00 23:00 07:00 Intake Total 120 ml Output Total 0 ml Balance 120 ml 0 ml FARELA,LAMBERTO MD Jun 18, 2019 12:54
[2019-06-18 14:49] VITALS: BP 181/84
[2019-06-18] MEDS ORDERED: ACETAMINOPHEN 325 MG TABLET. PO PRN (15:00)
[2019-06-18] MEDS ORDERED: LABETALOL 20 MG/4 ML DISP.SYRIN. IVP PRN (15:00)
[2019-06-18] MEDS: LORazepam 1 MG TABLET PO PRN ×2 (15:06→22:08)
[2019-06-18] MEDS: WARFARIN 4 MG TABLET. PO SCH (17:55)
--- NOTE | 2019-06-18 18:22 | NUR ---
pt very upset at only receiving tylenol for pain. states "Im here for pain control and you are doing nothing to help." re-educated pt on admission diagnosis of HTN, ESRD, and r/o covid. pt upset that she is on a covid unit that she might be exposed. pt had sister on speaker who was also upset about this and that the pt was only getting tylenol. accused RN of not caring and not doing anything to help pt. this rn had already paged physician twice and the only order received was tylenol. will pg physician again.
[2019-06-18 19:00] VITALS: BP 164/76
[2019-06-18] MEDS: LABETALOL 20 MG/4 ML DISP.SYRIN. IVP PRN (19:01)
[2019-06-18] MEDS: AMITRIPTYLINE HCL 25 MG TABLET. PO SCH (19:26)
[2019-06-18] MEDS: traMADol 50 MG TABLET PO PRN (19:26)
[2019-06-18] MEDS: DARBEPOETIN ALFA 60 MCG/0.3 ML DISP.SYRIN. SQ SCH ×2 (19:28→21:02)
[2019-06-18 23:00] VITALS: BP 166/81
[2019-06-19 03:00] VITALS: BP 172/84
[2019-06-19] MEDS: traMADol 50 MG TABLET PO PRN ×3 (04:29→21:06)
[2019-06-19] MEDS: LORazepam 1 MG TABLET PO PRN ×2 (04:29→21:06)
[2019-06-19] MEDS: LABETALOL 20 MG/4 ML DISP.SYRIN. IVP PRN (04:30)
[2019-06-19 07:00] VITALS: BP 175/84
--- NOTE | 2019-06-19 09:01 | PDOC ---
PULMONARY PROGRESS NOTES Subjective no soa, on RA c/o knee pain Vitals Vital Signs Date Time Temp Pulse Resp B/P (MAP) Pulse Ox O2 Delivery O2 Flow Rate FiO2 06/19/19 07:00 97.9 69 17 175/84 (114) 95 Room Air 97.9 06/18/19 07:00 2.0 Comments visual exam done via telemedicine no SOA, on RA no skin rash no leg edema General: Alert, No acute distress Labs Laboratory Tests Test 06/17/19 09:15 06/18/19 05:20 06/19/19 03:40 Group A Streptococcus Rapid Negative (NEGATIVE) Prothrombin Time 26.3 SEC (11.7-14.0) 26.0 SEC (11.7-14.0) Prothromb Time International Ratio 2.4 (0.8-1.1) 2.4 (0.8-1.1) Troponin I Quantitative 0.264 ng/mL (0.000-0.055) Laboratory Tests Test 06/19/19 03:40 Prothrombin Time 26.0 SEC (11.7-14.0) Prothromb Time International Ratio 2.4 (0.8-1.1) Medications Active Scripts Medications Dose Route/Sig Max Daily Dose Days Date Category Coumadin (Warfarin Sodium) 4 Mg Tablet 1 Tab PO DAILY 06/17/19 Reported Venlafaxine Hcl 37.5 Mg Tablet 37.5 Mg PO DAILY 12/28/18 Reported Renvela (Sevelamer Carbonate) 800 Mg Tablet 1 Tab PO TID 30 12/28/18 Reported Wendy-Marvin Tablet (Folic Acid/Vitamin B Comp W-C) 0.8 Mg Tablet 1 Tab PO DAILY 30 12/28/18 Reported Lyrica (Pregabalin) 50 Mg Capsule 0.5 Cap PO BID 12/28/18 Reported Protonix (Pantoprazole Sodium) 20 Mg Tablet.dr 2 Tab PO DAILY 12/28/18 Reported Levetiracetam 750 Mg Tab.er.24h 1 Tab PO DAILY 30 12/28/18 Reported Carvedilol 25 Mg Tablet 25 Mg PO BIDWMEALS 12/28/18 Reported Aspirin 81 Mg Tab.chew 1 Tab PO DAILY 12/28/18 Reported Amitriptyline Hcl 75 Mg Tablet 1 Tab PO QHS 12/28/18 Reported Amlodipine Besylate 10 Mg Tablet 10 Mg PO DAILY 12/05/17 Reported Impression . 1. Dyspnea with mild hypoxia, likely related to acute on chronic diastolic heart failure. resolved 2. Less clinical suspicion for COVID-19 infection. 3. End-stage renal disease, on hemodialysis. 4. Hypertension, under suboptimal control. 5. Reported history of PE 2 months ago at , details of which not available, but it has been therapeutic, on anticoagulation with warfarin. 6. Eighteen years of tobacco use and still smokes cigarettes. 7. Mildly increased troponin level. 8. Abnormal chest x-ray with unchanged right lower lobe small pleural effusion/pleural thickening along with parenchymal scarring in the right lower lobe. Her CT chest previously had shown calcification in the right lower lobe. Overall, findings are unchanged. No acute infectious process seen on the chest x-ray. Plan . 1. Off oxygen, on RA now 2. Follow Nephrology recommendations along with continuing with hemodialysis and ultrafiltration today 3. Optimization of blood pressure per Cardiology. 4. We will obtain COVID-19 test. Clinical suspicion for that is low. 5. Continue warfarin and keep the INR therapeutic.. 6. Smoking cessation counseling provided. 7. If COVID testing is negative, she could be discharged home. 8. Obtain echocardiogram to assess for LV dysfunction and also to rule out any pericardial effusion. 9. Discussed with RN Call us for any questions. will see RICHAR ISABEL MD Jun 19, 2019 09:01
[2019-06-19] MEDS: CARVEDILOL 12.5 MG TABLET. PO SCH ×2 (09:34→21:06)
[2019-06-19] MEDS: ASPIRIN CHEWABLE 81 MG TABLET. PO SCH (09:37)
[2019-06-19] MEDS: levETIRAcetam 250 MG TABLET PO SCH ×2 (09:38→21:06)
[2019-06-19] MEDS: FOLIC/VIT B COMP W-C (RENAL) TABLET. PO SCH (09:38)
[2019-06-19] MEDS: PANTOPRAZOLE 40 MG TABLET.DR. PO SCH (09:40)
[2019-06-19] MEDS: PREGABALIN 25 MG CAPSULE PO SCH ×2 (09:40→21:05)
[2019-06-19] MEDS: SEVELAMER CARBONATE 800 MG TABLET. PO SCH ×3 (09:40→21:05)
[2019-06-19] MEDS: amLODIPine BESYLATE 10 MG TABLET PO SCH (09:41)
[2019-06-19] MEDS: VENLAFAXINE XR 37.5 MG CAP.ER.24H. PO SCH (09:41)
[2019-06-19 10:42] VITALS: BP 162/80
--- NOTE | 2019-06-19 11:40 | PDOC ---
PROGRESS NOTES Chief Complaint Chief Complaint Acute on chronic diastolic heart failure End-stage renal disease on hemodialysis Uncontrolled essential hypertension History of pulmonary embolism diagnosed at outside facility ([facility]) currently on warfarin anticoagulation Tobacco abuse Elevated troponin in the setting of end-stage renal disease with no symptoms very unlikely an acute event most likely a consequence of demand ischemia or type II elevation of troponin Right lower lobe pleural effusion most likely a consequence of the above- mentioned diastolic dysfunction and fluid overload History of anxiety Plan Wait for results of coronavirus testing Continue with recommendations from pulmonology Resume home medications Dialysis as per nephrology Further recommendations based on the clinical course DVT prophylaxis, patient fully anticoagulated with Coumadin History of Present Illness History of Present Illness No acute events reported overnight, case discussed with nursing staff patient in no acute distress no complaints during my visit, complaints of generalized pain and asking for narcotics discussed with nephrology senior science consultant Vitals Vitals Vital Signs Date Time Temp Pulse Resp B/P (MAP) Pulse Ox O2 Delivery O2 Flow Rate FiO2 06/19/19 10:42 97.8 70 17 162/80 (107) 100 Room Air 97.8 06/19/19 10:23 2.0 Physical Exam General: Alert, Oriented X3, Cooperative, No acute distress Heart: Regular rate Abdomen: Normal bowel sounds, No tenderness Extremities: No cyanosis Skin: No breakdown Labs LABS Laboratory Tests Test 06/19/19 03:40 Prothrombin Time 26.0 SEC (11.7-14.0) Prothromb Time International Ratio 2.4 (0.8-1.1) Assessment and Plan Assessmemt and Plan Problems Medical Problems: (1) Hypertensive urgency Status: Acute (2) Volume overload Status: Acute Comment Review of Relevant I have reviewed the following items jamie (where applicable) has been applied. Labs Laboratory Tests Test 06/17/19 20:20 06/18/19 05:20 06/19/19 03:40 Coronavirus (COVID-19)(PCR) See separate report Prothrombin Time 26.3 SEC (11.7-14.0) 26.0 SEC (11.7-14.0) Prothromb Time International Ratio 2.4 (0.8-1.1) 2.4 (0.8-1.1) Troponin I Quantitative 0.264 ng/mL (0.000-0.055) Laboratory Tests Test 06/19/19 03:40 Prothrombin Time 26.0 SEC (11.7-14.0) Prothromb Time International Ratio 2.4 (0.8-1.1) Microbiology 06/17/19 Blood Culture - Preliminary, Resulted NO GROWTH AFTER 2 DAYS Medications Current Medications Ondansetron HCl (Zofran) 4 mg STK-MED ONCE .ROUTE ; Start 06/17/19 at 07:38; Stop 06/17/19 at 07:39; Status DC Morphine Sulfate (Morphine Sulfate) 4 mg 1X ONCE IV Last administered on 06/17/19at 08:16; Start 06/17/19 at 08:00; Stop 06/17/19 at 08:01; Status DC Hydralazine HCl (Apresoline Inj) 10 mg 1X ONCE IVP Last administered on 06/17/19at 08:05; Start 06/17/19 at 08:00; Stop 06/17/19 at 08:01; Status DC Ondansetron HCl (Zofran) 4 mg 1X ONCE IVP Last administered on 06/17/19at 08:16; Start 06/17/19 at 08:15; Stop 06/17/19 at 08:16; Status DC Fentanyl Citrate (Fentanyl 2ml Vial) 100 mcg 1X ONCE IVP Last administered on 06/17/19at 09:35; Start 06/17/19 at 09:15; Stop 06/17/19 at 09:16; Status DC Ondansetron HCl (Zofran) 4 mg PRN Q8HRS PRN IV NAUSEA/VOMITING Last administered on 06/17/19at 20:19; Start 06/17/19 at 10:15; Stop 06/18/19 at 10:14; Status DC Fentanyl Citrate (Fentanyl 2ml Vial) 50 mcg PRN Q1HR PRN IV PAIN Last administered on 06/17/19at 20:20; Start 06/17/19 at 10:15; Stop 06/18/19 at 10:14; Status DC Darbepoetin Fredrick (ARANESP for DIALYSIS PTS) 60 mcg WEEKLYHS SQ ; Start 06/18/19 at 21:00 Lorazepam (Ativan) 1 mg PRN Q6HRS PRN PO ANXIETY / AGITATION Last administered on 06/19/19at 04:29; Start 06/17/19 at 16:45 Amlodipine Besylate (Norvasc) 10 mg DAILY PO Last administered on 06/19/19 09:41; Start 06/18/19 at 09:00 Aspirin (Aspirin Chewable) 81 mg DAILY PO Last administered on 06/19/19 09:37; Start 06/18/19 at 09:00 Vitamin B Complex/ Vitamin C (Wendy-Marvin) 1 tab DAILY PO Last administered on 06/19/19 09:38; Start 06/18/19 at 09:00 Pregabalin (Lyrica) 25 mg BID PO Last administered on 06/19/19 09:40; Start 06/17/19 at 21:00 Sevelamer Carbonate (Renvela) 800 mg TIDWMEALS PO Last administered on 06/19/19 09:40; Start 06/18/19 at 08:00 Warfarin Sodium (Coumadin) 4 mg DAILY16 PO Last administered on 06/18/19 17:55; Start 06/17/19 at 18:00 Amitriptyline HCl (Elavil) 75 mg QHS PO Last administered on 06/18/19 19:26; Start 06/17/19 at 21:00 Carvedilol (Coreg) 25 mg BIDWMEALS PO Last administered on 06/19/19 09:34; Start 06/17/19 at 18:00 Levetiracetam (Keppra) 375 mg BID PO Last administered on 06/19/19 09:38; Start 06/18/19 at 09:00 Pantoprazole Sodium (Protonix) 40 mg DAILYAC PO Last administered on 06/19/19 09:40; Start 06/18/19 at 07:30 Venlafaxine HCl (Effexor Xr) 37.5 mg DAILY PO Last administered on 06/19/19 09:41; Start 06/18/19 at 09:00 Warfarin Sodium (Coumadin Per Pharmacy) 1 each PRN DAILY PRN MC SEE COMMENTS Last administered on 06/18/19at 11:24; Start 06/17/19 at 17:45 Sodium Chloride 1,000 ml @ 1,000 mls/hr Q1H PRN IV hypotension; Start 06/18/19 at 07:58; Stop 06/18/19 at 13:57; Status DC Albumin Human 200 ml @ 200 mls/hr 1X PRN PRN IV Hypotension; Start 06/18/19 at 08:00; Stop 06/18/19 at 13:59; Status DC Sodium Chloride (Normal Saline Flush) 10 ml 1X PRN PRN IV AP catheter pack; Start 06/18/19 at 08:00; Stop 06/19/19 at 07:59; Status DC Sodium Chloride (Normal Saline Flush) 10 ml 1X PRN PRN IV JOINT RUNNER catheter pack; Start 06/18/19 at 08:00; Stop 06/19/19 at 07:59; Status DC Sodium Chloride 1,000 ml @ 400 mls/hr Q2H30M PRN IV PATENCY; Start 06/18/19 at 07:58; Stop 06/18/19 at 19:57; Status DC Info (PHARMACY MONITORING -- do not chart) 1 each PRN DAILY PRN MC SEE COMMENTS; Start 06/18/19 at 08:00; Status UNV Info (PHARMACY MONITORING -- do not chart) 1 each PRN DAILY PRN MC SEE COMMENTS; Start 06/18/19 at 08:00 Acetaminophen (Tylenol) 650 mg PRN Q6HRS PRN PO mild pain Last administered on 06/18/19at 15:06; Start 06/18/19 at 15:00 Labetalol HCl (Normodyne Iv Push) 20 mg PRN Q6HRS PRN IVP HYPERTENSION Last administered on 06/18/19at 15:06; Start 06/18/19 at 15:00; Stop 06/18/19 at 15:16; Status DC Labetalol HCl (Normodyne Iv Push) 10 mg PRN Q6HRS PRN IVP HYPERTENSION Last administered on 06/19/19at 04:30; Start 06/18/19 at 15:15 Tramadol HCl (Ultram) 50 mg PRN Q6HRS PRN PO MODERATE-SEVERE PAIN Last administered on 06/19/19at 10:23; Start 06/18/19 at 19:15 Active Scripts Active Reported Coumadin (Warfarin Sodium) 4 Mg Tablet 1 Tab PO DAILY Venlafaxine Hcl 37.5 Mg Tablet 37.5 Mg PO DAILY Renvela (Sevelamer Carbonate) 800 Mg Tablet 1 Tab PO TID 30 Days Wendy-Marvin Tablet (Folic Acid/Vitamin B Comp W-C) 0.8 Mg Tablet 1 Tab PO DAILY 30 Days Lyrica (Pregabalin) 50 Mg Capsule 0.5 Cap PO BID Protonix (Pantoprazole Sodium) 20 Mg Tablet.dr 2 Tab PO DAILY Levetiracetam 750 Mg Tab.er.24h 1 Tab PO DAILY 30 Days Carvedilol 25 Mg Tablet 25 Mg PO BIDWMEALS Aspirin 81 Mg Tab.chew 1 Tab PO DAILY Amitriptyline Hcl 75 Mg Tablet 1 Tab PO QHS Amlodipine Besylate 10 Mg Tablet 10 Mg PO DAILY Vitals/I & O Vital Sign - Last 24 Hours 06/18/19 06/18/19 06/18/19 06/18/19 14:49 15:06 17:57 19:00 Temp 98.3 98.7 98.3 98.7 Pulse 69 75 75 72 Resp 16 18 B/P (MAP) 181/84 (116) 181/84 181/84 164/76 (105) Pulse Ox 94 99 O2 Delivery Room Air 06/18/19 06/18/19 06/18/19 06/19/19 19:01 20:00 23:00 03:00 Temp 98.7 97.8 98.7 97.8 Pulse 75 72 68 Resp 16 18 B/P (MAP) 221/102 166/81 (109) 172/84 (113) Pulse Ox 96 97 O2 Delivery Room Air 06/19/19 06/19/19 06/19/19 06/19/19 04:30 07:00 09:34 09:41 Temp 97.9 97.9 Pulse 70 69 69 69 Resp 17 B/P (MAP) 172/84 175/84 (114) 175/84 175/84 Pulse Ox 95 O2 Delivery Room Air 06/19/19 06/19/19 10:23 10:42 Temp 97.8 97.8 Pulse 70 Resp 17 B/P (MAP) 162/80 (107) Pulse Ox 95 100 O2 Delivery Room Air Room Air O2 Flow Rate 2.0 Intake and Output 06/18/19 06/18/19 06/19/19 15:00 23:00 07:00 Intake Total 200 ml 300 ml 200 ml Output Total 0 ml 0 ml Balance 200 ml 300 ml 200 ml LAURA WARD MD Jun 19, 2019 11:40
--- NOTE | 2019-06-19 11:43 | NUR ---
IP: Pt is COVID negative and may be removed from isolation.
--- NOTE | 2019-06-19 12:11 | PDOC ---
Renal-Progress Notes Subjective Notes Notes STILL HAS SOB History of Present Illness Hx of present illness STABLE Vitals Vitals Vital Signs Date Time Temp Pulse Resp B/P (MAP) Pulse Ox O2 Delivery O2 Flow Rate FiO2 06/19/19 10:42 97.8 70 17 162/80 (107) 100 Room Air 97.8 06/19/19 10:23 2.0 Weight Weight [ ] I.O. Intake and Output Intake and Output 06/19/19 07:00 Intake Total 700 ml Output Total 0 ml Balance 700 ml Intake Oral 700 ml Output Urine Total 0 ml Labs Labs Laboratory Tests Test 06/19/19 03:40 Prothrombin Time 26.0 SEC (11.7-14.0) Prothromb Time International Ratio 2.4 (0.8-1.1) Micro Micro Microbiology 06/17/19 Blood Culture - Preliminary, Resulted NO GROWTH AFTER 2 DAYS 06/17/19 Nose/Throat Culture - Final, Complete 06/17/19 - Final, Complete Review of Systems Constitutional: yes: weakness, alert Ears/Nose/Throat: Yes: no symptom reported Eyes: Yes: no symptom reported Pulmonary: Yes dyspnea Cardiovascular: Yes no symptom reported Gastrointestional: Yes: constipation Genitourinary: Yes: no symptom reported Musculoskeletal: Yes: muscle stiffness Skin: Yes no symptom reported Psychiatric/Neurological: Yes: no symptom reported Endocrine: Yes: no symptom reported Physical Exam General Appearance: no apparent distress Skin: warm Respiratory: decreased breath sounds Heart: S1S2 Abdomen: soft Genitourinary: bladder flat Extremities: pulses present, no edema Neurology: alert, oriented Assessment Assessment IMP DYSPNEA VOLUME OVERLOAD ANEMIA DM I HTN ESRD-TTS NON COMPLIANCE PLAN HD AGAIN TODAY UF ABOUT 2.5 LITERS STARTED DONNA COVID 19 PENDING WILL FOLLOW Connie ATTENDING ERVIN MARTINEZ MD Jun 19, 2019 12:11
--- NOTE | 2019-06-19 14:07 | NUR ---
SS following for discharge planning. SS reviewed pt chart and discussed with pt RN. Pt is from home and is currently on room air. Pt COVID19 negative. Pt has hemodialysis set up at [facility], ; fax [phone], Tuesday, , and Tuesday. SS will continue to follow for discharge planning.
[2019-06-19 14:46] VITALS: BP 158/83
[2019-06-19] MEDS ORDERED: DIALYSIS PATIENT. MC PRN ×2 (16:00)
[2019-06-19 16:22] LABS: ALBUMIN 3.2 g/dL (3.4-5.0); CALCIUM 8.9 mg/dL (8.5-10.1); CREATININE 4.6 mg/dL (0.6-1.0); GFR 13.3; PHOSPHORUS 4.6 mg/dL (2.6-4.7); POTASSIUM 4.1 mmol/L (3.5-5.1)
[2019-06-19 20:30] VITALS: BP 174/92
[2019-06-19] MEDS: AMITRIPTYLINE HCL 25 MG TABLET. PO SCH (21:06)
[2019-06-19] MEDS: WARFARIN 4 MG TABLET. PO SCH (21:06)
[2019-06-19 23:00] VITALS: BP 166/88
[2019-06-20 03:00] VITALS: BP 149/84
[2019-06-20 04:24] LABS: PROTHROMBIN TIME PATIENT 26.4 SEC (11.7-14.0)
[2019-06-20 07:00] VITALS: BP 162/81
--- NOTE | 2019-06-20 08:49 | NUR ---
SW following. Discussed with RN, pt from home, having ECHO today. Pt thinks she is discharging home today, RN advised no SW needs. DAMEON will continue to follow. Addendum: 06/20/19 at 1446 by SID XIAO Discharge order for home with self care. DAMEON notified Olga Jeronimo of discharge. Pt is not requiring home oxygen. No further SW needs.
--- NOTE | 2019-06-20 10:02 | PDOC ---
PROGRESS NOTES Chief Complaint Chief Complaint Acute on chronic diastolic heart failure End-stage renal disease on hemodialysis Uncontrolled essential hypertension History of pulmonary embolism diagnosed at outside facility ([facility]) currently on warfarin anticoagulation Tobacco abuse Elevated troponin in the setting of end-stage renal disease with no symptoms very unlikely an acute event most likely a consequence of demand ischemia or type II elevation of troponin Right lower lobe pleural effusion most likely a consequence of the above- mentioned diastolic dysfunction and fluid overload History of anxiety History of Present Illness History of Present Illness echo today she complains of chronic knee and ankle pain, has seen her primary care for, would like pain meds, did not want to see physiatry or pain specialist Dialysis as per nephrology Further recommendations based on the clinical course DVT prophylaxis, patient fully anticoagulated with Coumadin No acute events reported overnight, case discussed with nursing staff patient in no acute distress no complaints during my visit, complaints of generalized pain and asking for narcotics discussed with nephrology treasury consultant Vitals Vitals Vital Signs Date Time Temp Pulse Resp B/P (MAP) Pulse Ox O2 Delivery O2 Flow Rate FiO2 06/20/19 07:00 98.5 65 18 162/81 (108) 100 Room Air 98.5 06/20/19 03:00 2.0 Physical Exam General: Alert, Oriented X3, Cooperative, No acute distress Heart: Regular rate Abdomen: Normal bowel sounds, No tenderness Extremities: No cyanosis Skin: No breakdown Labs LABS Laboratory Tests Test 06/19/19 21:28 06/20/19 03:35 06/20/19 07:26 Glucose (Fingerstick) 101 mg/dL (70-99) 77 mg/dL (70-99) Prothrombin Time 26.4 SEC (11.7-14.0) Prothromb Time International Ratio 2.4 (0.8-1.1) Assessment and Plan Assessmemt and Plan Problems Medical Problems: (1) Hypertensive urgency Status: Acute (2) Volume overload Status: Acute Comment Review of Relevant I have reviewed the following items jamie (where applicable) has been applied. Labs Laboratory Tests Test 06/19/19 03:40 06/19/19 21:28 06/20/19 03:35 06/20/19 07:26 Prothrombin Time 26.0 SEC (11.7-14.0) 26.4 SEC (11.7-14.0) Prothromb Time International Ratio 2.4 (0.8-1.1) 2.4 (0.8-1.1) Sodium Level 137 mmol/L (136-145) Potassium Level 4.1 mmol/L (3.5-5.1) Chloride Level 98 mmol/L (98-107) Carbon Dioxide Level 31 mmol/L (21-32) Anion Gap 8 (6-14) Blood Urea Nitrogen 17 mg/dL (7-20) Creatinine 4.6 mg/dL (0.6-1.0) Estimated GFR (Cockcroft-Gault) 13.3 Glucose Level 84 mg/dL (70-99) Calcium Level 8.9 mg/dL (8.5-10.1) Phosphorus Level 4.6 mg/dL (2.6-4.7) Albumin 3.2 g/dL (3.4-5.0) Glucose (Fingerstick) 101 mg/dL (70-99) 77 mg/dL (70-99) Laboratory Tests Test 06/19/19 21:28 06/20/19 03:35 06/20/19 07:26 Glucose (Fingerstick) 101 mg/dL (70-99) 77 mg/dL (70-99) Prothrombin Time 26.4 SEC (11.7-14.0) Prothromb Time International Ratio 2.4 (0.8-1.1) Microbiology 06/17/19 Blood Culture - Preliminary, Resulted NO GROWTH AFTER 3 DAYS 06/17/19 Nose/Throat Culture - Final, Complete 06/17/19 - Final, Complete Medications Current Medications Ondansetron HCl (Zofran) 4 mg STK-MED ONCE .ROUTE ; Start 06/17/19 at 07:38; Stop 06/17/19 at 07:39; Status DC Morphine Sulfate (Morphine Sulfate) 4 mg 1X ONCE IV Last administered on 06/17/19at 08:16; Start 06/17/19 at 08:00; Stop 06/17/19 at 08:01; Status DC Hydralazine HCl (Apresoline Inj) 10 mg 1X ONCE IVP Last administered on 06/17/19at 08:05; Start 06/17/19 at 08:00; Stop 06/17/19 at 08:01; Status DC Ondansetron HCl (Zofran) 4 mg 1X ONCE IVP Last administered on 06/17/19at 08:16; Start 06/17/19 at 08:15; Stop 06/17/19 at 08:16; Status DC Fentanyl Citrate (Fentanyl 2ml Vial) 100 mcg 1X ONCE IVP Last administered on 06/17/19at 09:35; Start 06/17/19 at 09:15; Stop 06/17/19 at 09:16; Status DC Ondansetron HCl (Zofran) 4 mg PRN Q8HRS PRN IV NAUSEA/VOMITING Last administered on 06/17/19 20:19; Start 06/17/19 at 10:15; Stop 06/18/19 at 10:14; Status DC Fentanyl Citrate (Fentanyl 2ml Vial) 50 mcg PRN Q1HR PRN IV PAIN Last administered on 06/17/19 20:20; Start 06/17/19 at 10:15; Stop 06/18/19 at 10:14; Status DC Darbepoetin Fredrick (ARANESP for DIALYSIS PTS) 60 mcg WEEKLYHS SQ ; Start 06/18/19 at 21:00 Lorazepam (Ativan) 1 mg PRN Q6HRS PRN PO ANXIETY / AGITATION Last administered on 06/19/19 21:06; Start 06/17/19 at 16:45 Amlodipine Besylate (Norvasc) 10 mg DAILY PO Last administered on 06/19/19 09:41; Start 06/18/19 at 09:00 Aspirin (Aspirin Chewable) 81 mg DAILY PO Last administered on 06/19/19 09:37; Start 06/18/19 at 09:00 Vitamin B Complex/ Vitamin C (Wendy-Marvin) 1 tab DAILY PO Last administered on 06/19/19 09:38; Start 06/18/19 at 09:00 Pregabalin (Lyrica) 25 mg BID PO Last administered on 06/19/19 21:05; Start 06/17/19 at 21:00 Sevelamer Carbonate (Renvela) 800 mg TIDWMEALS PO Last administered on 06/19/19 21:05; Start 06/18/19 at 08:00 Warfarin Sodium (Coumadin) 4 mg DAILY16 PO Last administered on 06/19/19 21:06; Start 06/17/19 at 18:00 Amitriptyline HCl (Elavil) 75 mg QHS PO Last administered on 06/19/19at 21:06; Start 06/17/19 at 21:00 Carvedilol (Coreg) 25 mg BIDWMEALS PO Last administered on 06/19/19at 21:06; Start 06/17/19 at 18:00 Levetiracetam (Keppra) 375 mg BID PO Last administered on 06/19/19at 21:06; St art 06/18/19 at 09:00 Pantoprazole Sodium (Protonix) 40 mg DAILYAC PO Last administered on 06/19/19at 09:40; Start 06/18/19 at 07:30 Venlafaxine HCl (Effexor Xr) 37.5 mg DAILY PO Last administered on 06/19/19at 09:41; Start 06/18/19 at 09:00 Warfarin Sodium (Coumadin Per Pharmacy) 1 each PRN DAILY PRN MC SEE COMMENTS Last administered on 06/19/19at 13:25; Start 06/17/19 at 17:45 Sodium Chloride 1,000 ml @ 1,000 mls/hr Q1H PRN IV hypotension; Start 06/18/19 at 07:58; Stop 06/18/19 at 13:57; Status DC Albumin Human 200 ml @ 200 mls/hr 1X PRN PRN IV Hypotension; Start 06/18/19 at 08:00; Stop 06/18/19 at 13:59; Status DC Sodium Chloride (Normal Saline Flush) 10 ml 1X PRN PRN IV AP catheter pack; Start 06/18/19 at 08:00; Stop 06/19/19 at 07:59; Status DC Sodium Chloride (Normal Saline Flush) 10 ml 1X PRN PRN IV MANPOWER DEVELOPMENT ADVISOR catheter pack; Start 06/18/19 at 08:00; Stop 06/19/19 at 07:59; Status DC Sodium Chloride 1,000 ml @ 400 mls/hr Q2H30M PRN IV PATENCY; Start 06/18/19 at 07:58; Stop 06/18/19 at 19:57; Status DC Info (PHARMACY MONITORING -- do not chart) 1 each PRN DAILY PRN MC SEE COMMENTS; Start 06/18/19 at 08:00; Status UNV Info (PHARMACY MONITORING -- do not chart) 1 each PRN DAILY PRN MC SEE COMMENTS; Start 06/18/19 at 08:00; Status Cancel Acetaminophen (Tylenol) 650 mg PRN Q6HRS PRN PO mild pain Last administered on 06/18/19at 15:06; Start 06/18/19 at 15:00 Labetalol HCl (Normodyne Iv Push) 20 mg PRN Q6HRS PRN IVP HYPERTENSION Last administered on 06/18/19at 15:06; Start 06/18/19 at 15:00; Stop 06/18/19 at 15:16; Status DC Labetalol HCl (Normodyne Iv Push) 10 mg PRN Q6HRS PRN IVP HYPERTENSION Last administered on 06/19/19at 04:30; Start 06/18/19 at 15:15 Tramadol HCl (Ultram) 50 mg PRN Q6HRS PRN PO MODERATE-SEVERE PAIN Last administered on 06/19/19at 21:06; Start 06/18/19 at 19:15 Info (PHARMACY MONITORING -- do not chart) 1 each PRN DAILY PRN MC SEE COMMENTS; Start 06/19/19 at 16:00 Info (PHARMACY MONITORING -- do not chart) 1 each PRN DAILY PRN MC SEE COMMENTS; Start 06/19/19 at 16:00; Status UNV Active Scripts Active Reported Coumadin (Warfarin Sodium) 4 Mg Tablet 1 Tab PO DAILY Venlafaxine Hcl 37.5 Mg Tablet 37.5 Mg PO DAILY Renvela (Sevelamer Carbonate) 800 Mg Tablet 1 Tab PO TID 30 Days Wendy-Marvin Tablet (Folic Acid/Vitamin B Comp W-C) 0.8 Mg Tablet 1 Tab PO DAILY 30 Days Lyrica (Pregabalin) 50 Mg Capsule 0.5 Cap PO BID Protonix (Pantoprazole Sodium) 20 Mg Tablet.dr 2 Tab PO DAILY Levetiracetam 750 Mg Tab.er.24h 1 Tab PO DAILY 30 Days Carvedilol 25 Mg Tablet 25 Mg PO BIDWMEALS Aspirin 81 Mg Tab.chew 1 Tab PO DAILY Amitriptyline Hcl 75 Mg Tablet 1 Tab PO QHS Amlodipine Besylate 10 Mg Tablet 10 Mg PO DAILY Vitals/I & O Vital Sign - Last 24 Hours 06/19/19 06/19/19 06/19/19 06/19/19 10:23 10:42 12:29 14:46 Temp 97.8 97.8 97.8 97.8 Pulse 70 65 Resp 17 17 B/P (MAP) 162/80 (107) 158/83 (108) Pulse Ox 95 100 100 100 O2 Delivery Room Air Room Air Room Air Room Air O2 Flow Rate 2.0 2.0 06/19/19 06/19/19 06/19/19 06/19/19 20:30 20:30 20:30 21:06 Temp 97.9 97.9 97.9 97.9 Pulse 72 72 74 Resp 20 20 B/P (MAP) 174/92 (119) 174/92 (119) 174/92 Pulse Ox 100 100 O2 Delivery Room Air Room Air Nasal Cannula O2 Flow Rate 1.0 06/19/19 06/19/19 06/19/19 06/20/19 21:06 22:05 23:00 03:00 Temp 98.4 98.5 98.4 98.5 Pulse 72 69 Resp 20 20 B/P (MAP) 166/88 (114) 149/84 (105) Pulse Ox 93 93 O2 Delivery Nasal Cannula Nasal Cannula Nasal Cannula Nasal Cannula O2 Flow Rate 1.0 2.0 2.0 06/20/19 07:00 Temp 98.5 98.5 Pulse 65 Resp 18 B/P (MAP) 162/81 (108) Pulse Ox 100 O2 Delivery Room Air Intake and Output 06/19/19 06/19/19 06/20/19 15:00 23:00 07:00 Intake Total 600 ml 250 ml Balance 600 ml 250 ml ANTONINO MATT MD Jun 20, 2019 10:02
[2019-06-20] MEDS: levETIRAcetam 250 MG TABLET PO SCH (10:06)
[2019-06-20] MEDS: ASPIRIN CHEWABLE 81 MG TABLET. PO SCH (10:06)
[2019-06-20] MEDS: FOLIC/VIT B COMP W-C (RENAL) TABLET. PO SCH (10:06)
[2019-06-20] MEDS: amLODIPine BESYLATE 10 MG TABLET PO SCH (10:06)
[2019-06-20] MEDS: PREGABALIN 25 MG CAPSULE PO SCH (10:07)
[2019-06-20] MEDS: CARVEDILOL 12.5 MG TABLET. PO SCH (10:07)
[2019-06-20] MEDS: PANTOPRAZOLE 40 MG TABLET.DR. PO SCH (10:07)
[2019-06-20] MEDS: SEVELAMER CARBONATE 800 MG TABLET. PO SCH ×2 (10:07→11:55)
[2019-06-20] MEDS: VENLAFAXINE XR 37.5 MG CAP.ER.24H. PO SCH (10:07)
[2019-06-20] MEDS: traMADol 50 MG TABLET PO PRN (10:08)
--- NOTE | 2019-06-20 10:12 | CARD ---
MR#: [id number] Date of Study: 06/20/2019 Ordering Physician: RICHAR HILL, Referring Physician: RICHAR HILL, Tech: Sanjana Garcia APPROVED REPORT EXAM: Two-dimensional and M-mode echocardiogram with Doppler and color Doppler. Other Information Quality : GoodHR: 68bpm INDICATION Pericardial Effusion Dyspnea RISK FACTORS Hypertension Diabetes Smoking 2D DIMENSIONS RVDd3.0 (2.9-3.5cm)Left Atrium(2D)4.2 (1.6-4.0cm) IVSd1.6 (0.7-1.1cm)Aortic Root(2D)2.7 (2.0-3.7cm) LVDd4.9 (3.9-5.9cm)LVOT Diameter2.1 (1.8-2.4cm) PWd1.4 (0.7-1.1cm)LVDs3.5 (2.5-4.0cm) FS (%) 27.3 %SV58.5 ml LVEF(%)53.0 (>50%) Aortic Valve AoV Peak Donny.147.4cm/sAoV VTI28.7cm AO Peak GR.8.7mmHgLVOT Peak Donny.128.6cm/s LVOT VTI 23.22cmAO Mean GR.4mmHg SHAKIR (VMAX)2.85qt2IMY (VTI)2.75cm2 Mitral Valve MV E Fxdqykcg434.3cm/sMV E Peak Gr.142mmHg MV DECEL [id number] A Cstuotnr79.4cm/s MV E Mean Gr.4mmHgMV KHA19nv E/A Ratio2.8MVA (PHT)4.96cm2 TDI E/Lateral E'20.4E/Medial E'16.4 Pulmonary Valve PV Peak Puvuhrfh58.4cm/s Tricuspid Valve TR P. Fqpadnbl093dz/sRAP BPLPZQNE8zuFm TR Peak Gr.68zfMqFSVW91hoRe Pulmonary Vein S1 Blskjugx80.5cm/sD2 Mxgooaaf92.3cm/s PVa [id number] LEFT VENTRICLE The Left Ventricle is borderline dilated. There is moderate concentric left ventricular hypertrophy. The left ventricular systolic function is normal. The Ejection Fraction is estimated at 50%. There is normal LV segmental wall motion. Transmitral Doppler flow pattern is Grade III-reversible restrictiv e diastolic dysfunction. No left ventricle thrombus noted on this study. RIGHT VENTRICLE The right ventricle is normal size. The right ventricle is mildly hypertrophied. The right ventricula r systolic function is normal. ATRIA The left atrium is borderline dilated. The right atrium size is normal. The interatrial septum is int act with no evidence for an atrial septal defect or patent foramen ovale as noted on 2-D or Doppler i maging. AORTIC VALVE The aortic valve is normal in structure and function. Doppler and Color Flow revealed trace aortic re gurgitation. There is no significant aortic valvular stenosis. MITRAL VALVE The mitral valve is normal in structure and function. There is no evidence of mitral valve prolapse. There is no mitral valve stenosis. Doppler and Color-flow revealed eccentric moderate to moderately s evere mitral regurgitation. TRICUSPID VALVE The tricuspid valve is normal in structure and function. Doppler and Color Flow revealed mild to mode rate tricuspid regurgitation with an estimated PAP of 43 mmHg. There is no tricuspid valve stenosis. PULMONIC VALVE The pulmonary valve is normal in structure and function. Doppler and Color Flow revealed mild to mode rate pulmonic valvular regurgitation. GREAT VESSELS The aortic root is normal in size. The ascending aorta is normal in size. The IVC is normal in size a nd collapses >50% with inspiration. PERICARDIAL EFFUSION There is a trace pericardial effusion. Critical Notification Critical Value: No <Conclusion> The Left Ventricle is borderline dilated. The left ventricular systolic function is normal. The Ejection Fraction is estimated at 50%. There is moderate concentric left ventricular hypertrophy. Doppler and Color Flow revealed trace aortic regurgitation. There is no significant aortic valvular stenosis. Doppler and Color-flow revealed eccentric moderate to moderately severe mitral regurgitation. Doppler and Color Flow revealed mild to moderate tricuspid regurgitation with an estimated PAP of 43 mmHg. There is a trace pericardial effusion with no hemodynamic significance. Signed by : Lencho Castro MD Electronically Approved : 06/20/2019 10:12:09
[2019-06-20 11:00] VITALS: BP 155/68
--- NOTE | 2019-06-20 11:26 | PDOC ---
Renal-Progress Notes Subjective Notes Notes PAIN ALL OVER. THIS IS A CHRONIC COMPLAINT History of Present Illness Hx of present illness STABLE Vitals Vitals Vital Signs Date Time Temp Pulse Resp B/P (MAP) Pulse Ox O2 Delivery O2 Flow Rate FiO2 06/20/19 11:00 98.0 72 18 155/68 (97) 97 Room Air 98.0 06/20/19 10:08 2.0 Weight Weight [ ] I.O. Intake and Output Intake and Output 06/20/19 07:00 Intake Total 850 ml Balance 850 ml Intake Oral 850 ml # Voids 1 Labs Labs Laboratory Tests Test 06/19/19 21:28 06/20/19 03:35 06/20/19 07:26 Glucose (Fingerstick) 101 mg/dL (70-99) 77 mg/dL (70-99) Prothrombin Time 26.4 SEC (11.7-14.0) Prothromb Time International Ratio 2.4 (0.8-1.1) Micro Micro Microbiology 06/17/19 Blood Culture - Preliminary, Resulted NO GROWTH AFTER 3 DAYS 06/17/19 Nose/Throat Culture - Final, Complete 06/17/19 - Final, Complete Review of Systems Constitutional: yes: weakness, alert Ears/Nose/Throat: Yes: no symptom reported Eyes: Yes: no symptom reported Pulmonary: Yes dyspnea Cardiovascular: Yes no symptom reported Gastrointestional: Yes: constipation Genitourinary: Yes: no symptom reported Musculoskeletal: Yes: muscle stiffness Skin: Yes no symptom reported Psychiatric/Neurological: Yes: no symptom reported Endocrine: Yes: no symptom reported Physical Exam General Appearance: no apparent distress Skin: warm Respiratory: decreased breath sounds Heart: S1S2 Abdomen: soft Genitourinary: bladder flat Extremities: pulses present, no edema Neurology: alert, oriented Assessment Assessment IMP DYSPNEA VOLUME OVERLOAD ANEMIA DM I HTN ESRD-TTS NON COMPLIANCE PLAN HD TOMORROW ECHO TODAY STARTED ARANESP WILL FOLLOW Connie ATTENDING ERVIN MARTINEZ MD Jun 20, 2019 11:26
--- NOTE | 2019-06-20 12:05 | PDOC ---
PULMONARY PROGRESS NOTES Subjective no soa, on RA Vitals Vital Signs Date Time Temp Pulse Resp B/P (MAP) Pulse Ox O2 Delivery O2 Flow Rate FiO2 06/20/19 11:55 Nasal Cannula 2.0 06/20/19 11:00 98.0 72 18 155/68 (97) 97 98.0 General: Alert, No acute distress Lungs: Clear Cardiovascular: S1 Abdomen: Soft Neuro Exam: Alert Extremities: No Edema Labs Laboratory Tests Test 06/19/19 03:40 06/19/19 21:28 06/20/19 03:35 06/20/19 07:26 Prothrombin Time 26.0 SEC (11.7-14.0) 26.4 SEC (11.7-14.0) Prothromb Time International Ratio 2.4 (0.8-1.1) 2.4 (0.8-1.1) Sodium Level 137 mmol/L (136-145) Potassium Level 4.1 mmol/L (3.5-5.1) Chloride Level 98 mmol/L (98-107) Carbon Dioxide Level 31 mmol/L (21-32) Anion Gap 8 (6-14) Blood Urea Nitrogen 17 mg/dL (7-20) Creatinine 4.6 mg/dL (0.6-1.0) Estimated GFR (Cockcroft-Gault) 13.3 Glucose Level 84 mg/dL (70-99) Calcium Level 8.9 mg/dL (8.5-10.1) Phosphorus Level 4.6 mg/dL (2.6-4.7) Albumin 3.2 g/dL (3.4-5.0) Glucose (Fingerstick) 101 mg/dL (70-99) 77 mg/dL (70-99) Test 06/20/19 11:23 Glucose (Fingerstick) 109 mg/dL (70-99) Laboratory Tests Test 06/19/19 21:28 06/20/19 03:35 06/20/19 07:26 06/20/19 11:23 Glucose (Fingerstick) 101 mg/dL (70-99) 77 mg/dL (70-99) 109 mg/dL (70-99) Prothrombin Time 26.4 SEC (11.7-14.0) Prothromb Time International Ratio 2.4 (0.8-1.1) Medications Active Scripts Medications Dose Route/Sig Max Daily Dose Days Date Category Coumadin (Warfarin Sodium) 4 Mg Tablet 1 Tab PO DAILY 06/17/19 Reported Venlafaxine Hcl 37.5 Mg Tablet 37.5 Mg PO DAILY 12/28/18 Reported Renvela (Sevelamer Carbonate) 800 Mg Tablet 1 Tab PO TID 30 12/28/18 Reported Wendy-Marvin Tablet (Folic Acid/Vitamin B Comp W-C) 0.8 Mg Tablet 1 Tab PO DAILY 30 12/28/18 Reported Lyrica (Pregabalin) 50 Mg Capsule 0.5 Cap PO BID 12/28/18 Reported Protonix (Pantoprazole Sodium) 20 Mg Tablet.dr 2 Tab PO DAILY 12/28/18 Reported Levetiracetam 750 Mg Tab.er.24h 1 Tab PO DAILY 30 12/28/18 Reported Carvedilol 25 Mg Tablet 25 Mg PO BIDWMEALS 12/28/18 Reported Aspirin 81 Mg Tab.chew 1 Tab PO DAILY 12/28/18 Reported Amitriptyline Hcl 75 Mg Tablet 1 Tab PO QHS 12/28/18 Reported Amlodipine Besylate 10 Mg Tablet 10 Mg PO DAILY 12/05/17 Reported Impression . 1. Dyspnea with mild hypoxia, likely related to acute on chronic diastolic heart failure. resolved 2. Less clinical suspicion for COVID-19 infection. 3. End-stage renal disease, on hemodialysis. 4. Hypertension, under suboptimal control. 5. Reported history of PE 2 months ago at , details of which not available, but it has been therapeutic, on anticoagulation with warfarin. 6. Eighteen years of tobacco use and still smokes cigarettes. 7. Mildly increased troponin level. 8. Abnormal chest x-ray with unchanged right lower lobe small pleural effusion/pleural thickening along with parenchymal scarring in the right lower lobe. Her CT chest previously had shown calcification in the right lower lobe. Overall, findings are unchanged. No acute infectious process seen on the chest x-ray. Plan . 1. Off oxygen, on RA now 2. Follow Nephrology recommendations along with continuing with hemodialysis and ultrafiltration today 3. Optimization of blood pressure per Cardiology. 4. We will obtain COVID-19 test. Clinical suspicion for that is low. 5. Continue warfarin and keep the INR therapeutic.. 6. Smoking cessation counseling provided. 7. If COVID testing is negative, she could be discharged home. 8. Obtain echocardiogram to assess for LV dysfunction and also to rule out any pericardial effusion. 9. Discussed with RN Call us for any questions. will see RICHAR ISABEL MD Jun 20, 2019 12:05
[2019-06-20 15:00] VITALS: BP 146/74
--- NOTE | 2019-06-20 16:10 | NUR ---
Discharge Note: Patient was discharged home with self care. Patients IV was discontinued per RN. Patient was given discharge summary/instructions, follow-ups and educational material. Patient did not have any further questions or concerns. Patient was discharged with her tunneled hemodialysis catheter on her right chest. Patient ambulated to the main entrance accompanied by ALDO Ordoñez with all personal belongings, where her family member was waiting for her to take her home.
== END 2019-06-20 16:10 | disposition home or self-care (01) | DRG 291 ==
LOC: ER 06:56 → 2 SOUTH 09:57 → ED HOLD 12:07 → 6 SOUTH 13:40 → 4 NORTH 06-19 19:10
PROVIDERS: ADMIT Internal Medicine; ATTEND Internal Medicine
PROC: 5A1D70Z Performance of Urinary Filtration, Intermittent, Less than 6 Hours Per Day (ICD-10-PCS; principal; 2019-06-18)
PROC: 5A1D70Z Performance of Urinary Filtration, Intermittent, Less than 6 Hours Per Day (ICD-10-PCS; 2019-06-19)
DX: I13.2 Hypertensive heart and chronic kidney disease with heart failure and with stage 5 chronic kidney disease, or end stage renal disease (principal); I50.33 Acute on chronic diastolic (congestive) heart failure; N18.6 End stage renal disease; D64.9 Anemia, unspecified; E10.22 Type 1 diabetes mellitus with diabetic chronic kidney disease; E10.40 Type 1 diabetes mellitus with diabetic neuropathy, unspecified; F17.210 Nicotine dependence, cigarettes, uncomplicated; I16.0 Hypertensive urgency; R09.02 Hypoxemia; M19.90 Unspecified osteoarthritis, unspecified site; F41.9 Anxiety disorder, unspecified; E21.3 Hyperparathyroidism, unspecified; Z20.828 Contact with and (suspected) exposure to other viral communicable diseases; Z79.01 Long term (current) use of anticoagulants; Z79.4 Long term (current) use of insulin; Z82.49 Family history of ischemic heart disease and other diseases of the circulatory system; Z83.3 Family history of diabetes mellitus; Z86.711 Personal history of pulmonary embolism; Z91.19 Patient's noncompliance with other medical treatment and regimen; Z99.2 Dependence on renal dialysis; Z79.899 Other long term (current) drug therapy; Z79.82 Long term (current) use of aspirin; Z71.6 Tobacco abuse counseling
CPT/HCPCS: 36415; 71045; 80053; 80069; 80177; 82962; 83605; 83690; 83735; 84484; 85007; 85025; 85610; 85730; 87040; 87070; 87804; 87880; 93005; 93306; 94618; 96374; 96375; 99285; J0360; J0882; J2270; J2405; J3010; J3490; G0378

== ENCOUNTER 2019-08-09 08:55 | Emergency (ER) | payer MEDICARE, OTHER ==
[~2019-08-09] VITALS: Ht 162.6 cm; Wt 63.6 kg
[~2019-08-09 08:55] MED LIST changes: +GABA600T7 PO; +HYDR-2769 PO; -PREG50CA PO; +PREG50CA91 PO; +WARF4TAB68 PO; +[UNRECOGNIZED DRUG - CODE] SQ
[2019-08-09 09:04] VITALS: BP 176/82
[2019-08-09] MEDS ORDERED: HYDROcodone/APAP 10/325 1 TAB TABLET PO ONE (09:30)
--- NOTE | 2019-08-09 09:47 | RAD ---
ANKLE LEFT 3V History: Reason: pain left ankle no known injury / Spl. Instructions: / History: Technique: 3 views left ankle. Comparison: None. Findings: Normal alignment. No fracture. Symmetric ankle mortise. Ankle soft tissue swelling. Extensive vascular calcifications. Impression: 1. No acute osseous abnormality. 2. Ankle soft tissue swelling. Electronically signed by: Hakeem Masters DO (08/09/2019 9:44 AM) [facility]
[2019-08-09] MEDS ORDERED: HYDR-3164 PO (09:51)
[2019-08-09] MEDS ORDERED: PRED20TA PO (09:51)
--- NOTE | 2019-08-09 09:52 | PHYS DOC ---
Past Medical History Past Medical History: Anxiety, Arthritis, Diabetes-Type II, Hypertension, Renal Failure, Other Additional Past Medical Histor: NEUROPATHY Past Surgical History: , Other Additional Past Surgical Histo: kidney biopsy,dialysis cath R chest Smoking Status: Current Every Day Smoker Additional Information: 1 PPD Alcohol Use: None Drug Use: Marijuana General Adult EDM: Chief Complaint: ANKLE PROBLEM HPI: HPI: Patient is a 34-year-old female dialysis patient who presents with left ankle pain. She states she is unsure what happened her ankle just started hurting. She has not had gout before. She denies any trauma to the area. She does state that it is painful when she tries to walk on it. [] Review of Systems: Review of Systems: Constitutional: Denies fever or chills. [] Eyes: Denies change in visual acuity. [] HENT: Denies nasal congestion or sore throat. [] Respiratory: Denies cough or shortness of breath. [] Cardiovascular: Denies chest pain or edema. [] GI: Denies abdominal pain, nausea, vomiting, bloody stools or diarrhea. [] : Per HPI [] Musculoskeletal: Per HPI. [] Integument: Denies rash. [] Neurologic: Denies headache, focal weakness or sensory changes. [] Endocrine: Denies polyuria or polydipsia. [] Lymphatic: Denies swollen glands. [] Psychiatric: Denies depression or anxiety. [] Heart Score: Risk Factors: Risk Factors: DM, Current or recent (<one month) smoker, HTN, HLP, family history of CAD, obesity. Risk Scores: Score 0 - 3: 2.5% MACE over next 6 weeks - Discharge Home Score 4 - 6: 20.3% MACE over next 6 weeks - Admit for Clinical Observation Score 7 - 10: 72.7% MACE over next 6 weeks - Early Invasive Strategies Current Medications: Current Medications Medications (Trade) Dose Ordered Sig/Mary Kay Start Time Stop Time Status Last Admin Dose Admin Acetaminophen/ Hydrocodone Bitart (Lortab 10/325) 1 tab 1X ONCE 08/09/19 09:30 08/09/19 09:31 DC 08/09/19 09:41 1 TAB Allergies: Allergies: Allergies Coded Allergies Type Severity Reaction Last Updated Verified No Known Drug Allergies 12/05/17 No Physical Exam: PE: Constitutional: Well developed, well nourished, no acute distress, non-toxic appearance. [] HENT: Normocephalic, atraumatic, bilateral external ears normal, oropharynx moist, no oral exudates, nose normal. [] Eyes: PERRLA, EOMI, conjunctiva normal, no discharge. [] Neck: Normal range of motion, no tenderness, supple, no stridor. [] Cardiovascular:Heart rate regular rhythm, no murmur [] Lungs & Thorax: Bilateral breath sounds clear to auscultation [] Abdomen: Bowel sounds normal, soft, no tenderness, no masses, no pulsatile m asses. [] Skin: Warm, dry, no erythema, no rash. [] Back: No tenderness, no CVA tenderness. [] Extremities: No tenderness, no cyanosis, no clubbing, ROM intact, no edema. [] Neurologic: Alert and oriented X 3, normal motor function, normal sensory function, no focal deficits noted. [] Psychologic: Affect normal, judgement normal, mood normal. [] Current Patient Data: Vital Signs: Vital Signs Date Time Temp Pulse Resp B/P (MAP) Pulse Ox O2 Delivery O2 Flow Rate FiO2 08/09/19 09:41 20 96 Room Air 08/09/19 09:04 98.3 83 176/82 (113) 98.3 EKG: EKG: [] Radiology/Procedures: Radiology/Procedures: Left ankle: Negative exam as interpreted by me [] Impression: REASON: pain left ankle no known injury PROCEDURE: ANKLE LEFT 3V ANKLE LEFT 3V History: Reason: pain left ankle no known injury / Spl. Instructions: / History: Technique: 3 views left ankle. Comparison: None. Findings: Normal alignment. No fracture. Symmetric ankle mortise. Ankle soft tissue swelling. Extensive vascular calcifications. Impression: 1. No acute osseous abnormality. 2. Ankle soft tissue swelling. Course & Med Decision Making: Course & Med Decision Making Pertinent Labs and Imaging studies reviewed. (See chart for details) [] Dragon Disclaimer: Alana Disclaimer: This electronic medical record was generated, in whole or in part, using a voice recognition dictation system. Departure Departure Impression: Primary Impression: Left ankle pain Qualified Codes: M25.572 - Pain in left ankle and joints of left foot Disposition: 01 HOME, SELF-CARE Condition: STABLE Referrals: UNKNOWN PCP NAME (PCP) Patient Instructions: Gout Additional Instructions: If there is no improvement in the next couple of days you will need to follow with your primary care physician for further testing. Scripts Prednisone (PREDNISONE) 20 Mg Tablet 1 TAB PO TID PRN for GOUT, #10 TAB Prov: TSERING HOYT DO 08/09/19 Hydrocodone/Apap 5-325 (NORCO 5-325 TABLET) 1 Each Tablet 1 TAB PO PRN Q6HRS PRN for PAIN, #10 TAB 0 Refills Prov: TSERING HOYT DO 08/09/19 Justicifation of Admission Dx: Justifications for Admission: Justification of Admission Dx: No TSERING HOYT DO Aug 09, 2019 09:51
[2019-08-26] MEDS ORDERED: BISA10SU4 PR (17:22)
[2019-08-26] MEDS ORDERED: HYDR-2869 PO (17:22)
[2019-08-26] MEDS ORDERED: GABA300C18 PO ×2 (17:22)
[2019-08-26] MEDS ORDERED: ALBU2.5V8 NEB (17:22)
[2019-08-26] MEDS ORDERED: LEVE250T30 PO (17:22)
[2019-08-26] MEDS ORDERED: DOCU-153 PO (17:22)
[2019-08-26] MEDS ORDERED: ONDA4TAB12 PO (17:22)
== END 2019-08-09 09:59 | disposition home or self-care (01) ==
LOC: ER 08:55
DX: M25.572 Pain in left ankle and joints of left foot (principal); F41.9 Anxiety disorder, unspecified; M19.90 Unspecified osteoarthritis, unspecified site; E11.40 Type 2 diabetes mellitus with diabetic neuropathy, unspecified; N18.9 Chronic kidney disease, unspecified; F17.200 Nicotine dependence, unspecified, uncomplicated; F12.90 Cannabis use, unspecified, uncomplicated; I12.9 Hypertensive chronic kidney disease with stage 1 through stage 4 chronic kidney disease, or unspecified chronic kidney disease; E11.22 Type 2 diabetes mellitus with diabetic chronic kidney disease; Z98.890 Other specified postprocedural states
CPT/HCPCS: 73610; 99283

== ENCOUNTER 2019-08-13 01:45 | Emergency (ER) | payer MEDICARE, OTHER ==
[~2019-08-13] VITALS: Ht 162.6 cm; Wt 63.6 kg
[~2019-08-13 01:45] MED LIST changes: +HYDR-3164 PO; +PRED20TA PO
[2019-08-13] MEDS ORDERED: ONDANSETRON PF 4 MG/2 ML VIAL. IVP ONE (02:30)
[2019-08-13] MEDS ORDERED: hydrALAZINE 20 MG/ML VIAL. IVP ONE (02:30)
[2019-08-13] MEDS ORDERED: MORPHINE SULFATE 4 MG/ML VIAL. IV ONE (02:30)
[2019-08-13 02:51] LABS: BASO # 0.1 x10^3/uL (0.0-0.2); BASO % 1 % (0-3); EOS # 0.9 x10^3/uL (0.0-0.7); EOS % 8 % (0-3); HEMATOCRIT 32.5 % (36.0-47.0); HEMOGLOBIN 10.7 g/dL (12.0-15.5); LYMPH # 1.9 x10^3/uL (1.0-4.8); LYMPH % 16 % (24-48); MEAN CORPUSCULAR HEMOGLOBIN 30 pg (25-35); MEAN CORPUSCULAR HGB CONC 33 g/dL (31-37); MEAN CORPUSCULAR VOLUME 92 fL (79-100); MONO # 1.1 x10^3/uL (0.0-1.1); MONO % 9 % (0-9); NEUT # 8.1 x10^3/uL (1.8-7.7); NEUT % 67 % (31-73); PLATELET COUNT 394 x10^3/uL (140-400); RED BLOOD COUNT 3.54 x10^6/uL (3.50-5.40); RED CELL DISTRIBUTION WIDTH 17.5 % (11.5-14.5)
--- NOTE | 2019-08-13 03:05 | PHYS DOC ---
Past Medical History Past Medical History: Anxiety, Arthritis, Depression, Diabetes-Type II, Hypertension, Renal Failure, Other Additional Past Medical Histor: NEUROPATHY (HERLINDA HILLIARD DO) Past Surgical History: , Other Additional Past Surgical Histo: kidney biopsy,dialysis cath R chest,UTERINE ABLATION. (HERLINDA HILLIARD DO) Smoking Status: Current Every Day Smoker Alcohol Use: None Drug Use: Marijuana (HERLINDA HILLIARD DO) General Adult EDM: Chief Complaint: HYPERTENSION HPI: HPI: Patient is a 34 year old female presenting to the ED with a chief complaint of high blood pressure and depression. Patient states that she was on dialysis on Tuesday, and Tuesday. Patient states that she just went to dialysis yesterday. Patient also complains of diffuse body aches. Patient states that she was recently diagnosed with gout in her left foot. Patient states that she is always in pain and even the breeze makes her body in pain. Patient states that she is always cheerful and is depressed. Patient states that sometimes she feels like she does not want to be around if it was not for her kids. Patient requests to talk to someone about her depression. (HERLINDA HILLIARD DO) Review of Systems: Review of Systems: Constitutional: Denies fever or chills. [] Eyes: Denies change in visual acuity. [] HENT: Denies nasal congestion or sore throat. [] Respiratory: Denies cough or shortness of breath. [] Cardiovascular: Denies chest pain or edema. [] GI: Denies abdominal pain, nausea, vomiting, bloody stools or diarrhea. [] : Denies dysuria. [] Musculoskeletal: Denies back pain or joint pain. [] Integument: Denies rash. [] Neurologic: Denies headache, focal weakness or sensory changes. [] Endocrine: Denies polyuria or polydipsia. [] Lymphatic: Denies swollen glands. [] Psychiatric: Denies depression or anxiety. [] (HERLINDA HILLIARD DO) Heart Score: Risk Factors: Risk Factors: DM, Current or recent (<one month) smoker, HTN, HLP, family history of CAD, obesity. Risk Scores: Score 0 - 3: 2.5% MACE over next 6 weeks - Discharge Home Score 4 - 6: 20.3% MACE over next 6 weeks - Admit for Clinical Observation Score 7 - 10: 72.7% MACE over next 6 weeks - Early Invasive Strategies (GOLLAPALLI,HERLINDA E DO) Current Medications: Current Medications Medications (Trade) Dose Ordered Sig/Mary Kay Start Time Stop Time Status Last Admin Dose Admin Hydralazine HCl (Apresoline Inj) 10 mg 1X ONCE 08/13/19 02:30 08/13/19 02:31 DC 08/13/19 02:40 10 MG Morphine Sulfate (Morphine Sulfate) 4 mg 1X ONCE 08/13/19 02:30 08/13/19 02:31 DC 08/13/19 02:35 4 MG Ondansetron HCl (Zofran) 4 mg 1X ONCE 08/13/19 02:30 08/13/19 02:31 DC 08/13/19 02:37 4 MG (GOLLAPALLI,HERLINDA E DO) Allergies: Allergies: Allergies Coded Allergies Type Severity Reaction Last Updated Verified No Known Drug Allergies 12/05/17 No (GOLLAPALLI,HERLINDA E DO) Physical Exam: PE: Constitutional: Well developed, well nourished, no acute distress, non-toxic appearance. [] HENT: Normocephalic, atraumatic Eyes: EOMI Neck: Normal range of motion, Supple Cardiovascular: Heart rate regular rhythm Lungs & Thorax: Bilateral breath sounds clear to auscultation [] Abdomen: Bowel sounds normal, soft, no tenderness Extremities: No tenderness, ROM intact Neurologic: Alert and oriented X 3 Psychiatry: Patient has a flat affect and is tearful (GOLLAPALLI,HERLINDA E DO) Current Patient Data: Labs: Laboratory Tests Test 08/13/19 02:10 White Blood Count 12.0 x10^3/uL (4.0-11.0) H Red Blood Count 3.54 x10^6/uL (3.50-5.40) Hemoglobin 10.7 g/dL (12.0-15.5) L Hematocrit 32.5 % (36.0-47.0) L Mean Corpuscular Volume 92 fL (79-100) Mean Corpuscular Hemoglobin 30 pg (25-35) Mean Corpuscular Hemoglobin Concent 33 g/dL (31-37) Red Cell Distribution Width 17.5 % (11.5-14.5) H Platelet Count 394 x10^3/uL (140-400) Neutrophils (%) (Auto) 67 % (31-73) Lymphocytes (%) (Auto) 16 % (24-48) L Monocytes (%) (Auto) 9 % (0-9) Eosinophils (%) (Auto) 8 % (0-3) H Basophils (%) (Auto) 1 % (0-3) Neutrophils # (Auto) 8.1 x10^3/uL (1.8-7.7) H Lymphocytes # (Auto) 1.9 x10^3/uL (1.0-4.8) Monocytes # (Auto) 1.1 x10^3/uL (0.0-1.1) Eosinophils # (Auto) 0.9 x10^3/uL (0.0-0.7) H Basophils # (Auto) 0.1 x10^3/uL (0.0-0.2) Laboratory Tests 08/13/19 02:10 Vital Signs: Vital Signs Date Time Temp Pulse Resp B/P (MAP) Pulse Ox O2 Delivery O2 Flow Rate FiO2 08/13/19 02:40 88 201/85 08/13/19 02:35 20 100 Room Air 08/13/19 01:45 98.3 98.3 (HERLINDA HILLIARD DO) EKG: EKG: [] (HERLINDA HILLIARD DO) Radiology/Procedures: Radiology/Procedures: [] (HERLINDA HILLIARD DO) Course & Med Decision Making: Course & Med Decision Making Pertinent Labs reviewed. (See chart for details) Ordered labs and PAT consult Patient is also given pain medication and IV blood pressure medication. PAT team here to evaluate patient in the ER. We will await their recommendation. (HERLINDA HILLIARD DO) Course & Med Decision Making Patient has not been assessed by [facility]. Patient does present with worsening depression but has no suicidal ideations, homicidal ideations or psychosis, has medical decision-making capacity. Referral information for outpatient care was given by [facility] consultation. Patient stable for discharge, will need hemodialysis tomorrow. Strict ED return precautions were given for SI/HI. Encourage PMD follow-up. All of her questions were answered and she was stable at time of discharge. (NAPOLEON SORIA DO) Alana Disclaimer: Alana Disclaimer: This electronic medical record was generated, in whole or in part, using a voice recognition dictation system. (HERLINDA HILLIARD DO) Departure Departure Impression: Primary Impression: Depression Additional Impression: ESRD (end stage renal disease) on dialysis Disposition: HOME, SELF-CARE Condition: STABLE Referrals: UNKNOWN PCP NAME (PCP) Patient Instructions: Depression, Adult Justicifation of Admission Dx: Justifications for Admission: Justification of Admission Dx: No (HERLINDA HILLIARD DO) HERLINDA HILLIARD DO Aug 13, 2019 03:05 NAPOLEON SROIA DO Aug 13, 2019 07:00
[2019-08-13 03:29] LABS: CALCIUM 7.9 mg/dL (8.5-10.1); CREATININE 8.6 mg/dL (0.6-1.0); GFR 6.4; POTASSIUM 3.4 mmol/L (3.5-5.1)
[2019-08-13 03:34] LABS: ALBUMIN 3.4 g/dL (3.4-5.0); ALBUMIN/GLOBULIN RATIO 0.8 (1.0-1.7); TOTAL BILIRUBIN 0.5 mg/dL (0.2-1.0); TOTAL PROTEIN 7.5 g/dL (6.4-8.2)
[2019-08-13] MEDS ORDERED: HYDROcodone/APAP 5/325MG 1 TAB TABLET PO ONE (06:30)
[2019-08-13] MEDS ORDERED: amLODIPine BESYLATE 5 MG TABLET PO ONE (06:30)
[2019-08-13] MEDS ORDERED: GABAPENTIN 300 MG CAPSULE. PO SCH (07:00)
[2019-08-13] MEDS ORDERED: CARVEDILOL 12.5 MG TABLET. PO SCH (07:00)
[2019-08-13 07:05] VITALS: BP 153/74
[2019-08-26] MEDS ORDERED: GABA300C18 PO ×2 (17:22)
[2019-08-26] MEDS ORDERED: ONDA4TAB12 PO (17:22)
[2019-08-26] MEDS ORDERED: BISA10SU4 PR (17:22)
[2019-08-26] MEDS ORDERED: LEVE250T30 PO (17:22)
[2019-08-26] MEDS ORDERED: HYDR-2869 PO (17:22)
[2019-08-26] MEDS ORDERED: DOCU-153 PO (17:22)
[2019-08-26] MEDS ORDERED: ALBU2.5V8 NEB (17:22)
== END 2019-08-13 07:05 | disposition home or self-care (01) ==
LOC: ER 01:45
DX: F32.9 Major depressive disorder, single episode, unspecified (principal); E11.22 Type 2 diabetes mellitus with diabetic chronic kidney disease; I12.0 Hypertensive chronic kidney disease with stage 5 chronic kidney disease or end stage renal disease; N18.6 End stage renal disease; Z99.2 Dependence on renal dialysis; E11.40 Type 2 diabetes mellitus with diabetic neuropathy, unspecified; F17.200 Nicotine dependence, unspecified, uncomplicated
CPT/HCPCS: 36415; 80053; 85025; 96374; 96375; 99284; J0360; J2270; J2405

== ENCOUNTER 2019-08-18 02:43 | Inpatient (IN) | payer MEDICARE, OTHER ==
[~2019-08-18] VITALS: Ht 162.6 cm; Wt 66.7 kg
--- NOTE | 2019-08-18 03:23 | PHYS DOC ---
Past Medical History Past Medical History: Anxiety, Arthritis, Depression, Diabetes-Type II, H ypertension, Renal Failure, Other Additional Past Medical Histor: NEUROPATHY Past Surgical History: , Other Additional Past Surgical Histo: kidney biopsy,dialysis cath R chest,UTERINE ABLATION. Smoking Status: Current Every Day Smoker Alcohol Use: None Drug Use: Marijuana General Adult EDM: Chief Complaint: GENERALIZED BODY ACHES HPI: HPI: Patient is a 34 year old female who presents with complaint of shortness of breath and aching all over. Patient states that she has missed her last few dialysis treatments because her car is broken down. She denies any chest pain. She states the shortness of breath is worsened with minimum exertion. She denies any fever. She does indicate that she has a cough but it is been nonproductive. Patient rates pain in her body and an 8 out of 10. [] Review of Systems: Review of Systems: Constitutional: Denies fever or chills. [] Respiratory: Complains of shortness of breath. [] Cardiovascular: Denies chest pain or edema. [] GI: Denies abdominal pain, nausea, vomiting or diarrhea. [] Integument: Denies rash. [] Neurologic: Denies headache, focal weakness or sensory changes. [] A full 10 point review of systems has been reviewed and is otherwise negative. Heart Score: Risk Factors: Risk Factors: DM, Current or recent (<one month) smoker, HTN, HLP, family history of CAD, obesity. Risk Scores: Score 0 - 3: 2.5% MACE over next 6 weeks - Discharge Home Score 4 - 6: 20.3% MACE over next 6 weeks - Admit for Clinical Observation Score 7 - 10: 72.7% MACE over next 6 weeks - Early Invasive Strategies Allergies: Allergies: Allergies Coded Allergies Type Severity Reaction Last Updated Verified No Known Drug Allergies 12/05/17 No Physical Exam: PE: Constitutional: Well developed, well nourished, no acute distress, non-toxic appearance. [] HENT: Normocephalic, atraumatic, bilateral external ears normal, oropharynx moist, no oral exudates, nose normal. [] Eyes: PERRLA, EOMI, conjunctiva normal, no discharge. [] Neck: Normal range of motion, no tenderness, supple. [] Cardiovascular: Regular rate and rhythm [] Lungs & Thorax: Bilateral breath sounds clear to auscultation [] Abdomen: Bowel sounds normal, soft, no tenderness. [] Skin: Warm, dry, no erythema, no rash. [] Extremities: No tenderness, no cyanosis, no clubbing, ROM intact. [] Neurologic: Alert and oriented X 3, no focal deficits noted. [] EKG: EKG: [] Radiology/Procedures: Radiology/Procedures: [] Course & Med Decision Making: Course & Med Decision Making Pertinent Labs and Imaging studies reviewed. (See chart for details) [] Dragon Disclaimer: Dragon Disclaimer: This electronic medical record was generated, in whole or in part, using a voice recognition dictation system. Departure Departure Impression: Primary Impression: CHF (congestive heart failure) Qualified Codes: I50.9 - Heart failure, unspecified Additional Impressions: Hypoxemia ESRD (end stage renal disease) on dialysis Disposition: ADMITTED INPATIENT Admitting Physician: ELIZABETH Condition: GOOD Referrals: UNKNOWN PCP NAME (PCP) Justicifation of Admission Dx: Justifications for Admission: Justification of Admission Dx: Comment: (hypoxemia; ESRD) Acute Renal Failure: Serum Cr > 4mg/dL CELINA CHARLES Jr. DO Aug 18, 2019 03:23
[2019-08-18 04:29] LABS: BASO % 1 % (0-3); EOS # 0.9 x10^3/uL (0.0-0.7); EOS % 9 % (0-3); HEMATOCRIT 23.5 % (36.0-47.0); HEMOGLOBIN 8.1 g/dL (12.0-15.5); LYMPH % 9 % (24-48); MEAN CORPUSCULAR HEMOGLOBIN 31 pg (25-35); MEAN CORPUSCULAR HGB CONC 34 g/dL (31-37); MEAN CORPUSCULAR VOLUME 91 fL (79-100); MONO # 1.3 x10^3/uL (0.0-1.1); MONO % 13 % (0-9); NEUT # 7.1 x10^3/uL (1.8-7.7); NEUT % 69 % (31-73); PLATELET COUNT 292 x10^3/uL (140-400); WHITE BLOOD COUNT 10.4 x10^3/uL (4.0-11.0)
[2019-08-18 04:31] LABS: CALCIUM 7.9 mg/dL (8.5-10.1); CREATININE 16.5 mg/dL (0.6-1.0); POTASSIUM 4.6 mmol/L (3.5-5.1)
[2019-08-18 04:37] LABS: ALBUMIN 3.3 g/dL (3.4-5.0); ALBUMIN/GLOBULIN RATIO 0.8 (1.0-1.7); TOTAL BILIRUBIN 0.5 mg/dL (0.2-1.0); TOTAL PROTEIN 7.4 g/dL (6.4-8.2)
[2019-08-18] MEDS ORDERED: ONDANSETRON PF 4 MG/2 ML VIAL. IVP ONE (04:45)
[2019-08-18] MEDS ORDERED: MORPHINE SULFATE 4 MG/ML VIAL. IV ONE (04:45)
[2019-08-18] MEDS ORDERED: MORPHINE SULFATE 4 MG/ML VIAL. IV PRN (05:15)
[2019-08-18] MEDS ORDERED: ONDANSETRON PF 4 MG/2 ML VIAL. IV PRN (05:15)
--- NOTE | 2019-08-18 05:50 | NUR ---
Admit from ER. Requesting IV pain meds for "all over pain rating 9/10." Also c/o left foot gout pain. "Dr. Ramirez wants me to get a pain mgmt doctor." Has Permacath in right chest (which is not clean). Has developing fistula in left forearm. Has missed 3 dialysis treatments (including today) "because my car broke down." O2 put on 2l per pt request of being "short of air."
[2019-08-18 06:20] VITALS: BP 141/63
--- NOTE | 2019-08-18 06:53 | RAD ---
INDICATION: Reason: dyspnea / Spl. Instructions: / History: COMPARISON: July 01, 2019 FINDINGS: Single view of chest obtained. Right sided dialysis catheter with tip projecting over the expected location of the superior vena cava. Enlarged cardiomediastinal silhouette. Patchy opacity within the right mid to lower lung is again seen with blunting of the right greater than left costophrenic angle. Mild interstitial prominence again seen IMPRESSION: * Redemonstration of focal opacity in the right lower lung which could be seen with atelectasis or infiltrate. There is also blunting of the right greater than left costophrenic angle therefore there may be small pleural effusion as well. * Enlarged cardiomediastinal silhouette is again seen. Electronically signed by: Thierry Watson MD (08/18/2019 6:50 AM) [id number]
[2019-08-18 07:10] LABS: % BANDS 1 % (0-9); % LYMPHS 12 % (24-48); % MONOS 13 % (0-10)
[2019-08-18 07:11] LABS: % EOS 10 % (0-5); % SEGS 64 % (35-66); ANISOCYTOSIS MOD; PLT ESTIMATE ADEQUATE (ADEQUATE); POIKILOCYTOSIS SLIGHT; POLYCHROMASIA SLIGHT
[2019-08-18 07:12] LABS: OVALOCYTES FEW; SCHISTOCYTES OCC; TARGET CELLS OCC; TEAR DROP CELLS OCC
--- NOTE | 2019-08-18 08:53 | PDOC1 ---
History and Physical Date of Admission Date of Admission DATE: 08/18/19 TIME: 08:43 Identification/Chief Complaint Chief Complaint Shortness of breath Source Source: Patient History of Present Illness History of Present Illness Ms Wilder is a 33 yo F w/PMHx Anxiety, Arthritis, Diabetes-Type II, Hypertension, neuropathy, ESRD on HD (previously PD) who c/o shortness of breath and diffuse myalgias. Patient states that she has missed her last few dialysis treatments because her car is broken down. She denies any chest pain. She states the shortness of breath is worsened with minimum exertion. She denies any fever. She does indicate that she has a cough but it is been nonproductive. Patient rates pain in her body and an 8 out of 10 07/05/2019 s/p left brachiocephalic AV fistula creation. Labs WBC 10.4 Hb 8.1, platelets 292, NA 135, K4.6, BUN 86, CR 16.5, glucose 254, BNP 35,000, albumin 3.3. Past Medical History Cardiovascular: HTN Heme/Onc: Other Psych: Anxiety Renal/: Chronic renal failure Endocrine: Diabetes, Hyperparathyroidism Past Surgical History Past Surgical History: , Other Family History Family History: Hypertension Social History Smoke: No ALCOHOL: occassional Drugs: Marijuana Current Problem List Problem List Problems Medical Problems: (1) CHF (congestive heart failure) Status: Acute (2) Hypoxemia Status: Acute Current Medications Current Medications Current Medications Morphine Sulfate (Morphine Sulfate) 4 mg 1X ONCE IV Last administered on 08/18/19at 04:55; Start 08/18/19 at 04:45; Stop 08/18/19 at 04:46; Status DC Ondansetron HCl (Zofran) 4 mg 1X ONCE IVP Last administered on 08/18/19at 04:53; Start 08/18/19 at 04:45; Stop 08/18/19 at 04:46; Status DC Ondansetron HCl (Zofran) 4 mg PRN Q8HRS PRN IV NAUSEA/VOMITING; Start 08/18/19 at 05:15; Stop 08/19/19 at 05:14 Morphine Sulfate (Morphine Sulfate) 4 mg PRN Q2HR PRN IV PAIN Last administered on 08/18/19at 06:20; Start 08/18/19 at 05:15; Stop 08/19/19 at 05:14 Active Scripts Active Prednisone 20 Mg Tablet 1 Tab PO TID PRN Brandon 5-325 Tablet (Acetaminophen/Hydrocodone Bitart) 1 Each Tablet 1 Tab PO PRN Q6HRS PRN Heparin Sod 5,000 Unit/0.5 ml (Heparin Sodium,Porcine/Pf) 5,000 Unit/0.5 Ml Syringe 5,000 Unit SQ Q 8 HRS PRN 10 Days Hydrocodone-Apap 10-325 (Hydrocodone Bit/Acetaminophen) 1 Tab Tablet 1 Tab PO PRN Q4HRS PRN 10 Days Reported Gabapentin 600 Mg Tablet 600 Mg PO TID Coumadin (Warfarin Sodium) 4 Mg Tablet 1 Tab PO DAILY Venlafaxine Hcl 37.5 Mg Tablet 37.5 Mg PO DAILY Renvela (Sevelamer Carbonate) 800 Mg Tablet 1 Tab PO TID 30 Days Wendy-Marvin Tablet (Folic Acid/Vitamin B Comp W-C) 0.8 Mg Tablet 1 Tab PO DAILY 30 Days Protonix (Pantoprazole Sodium) 20 Mg Tablet.dr 2 Tab PO DAILY Levetiracetam 750 Mg Tab.er.24h 1 Tab PO DAILY 30 Days Carvedilol 25 Mg Tablet 25 Mg PO BIDWMEALS Aspirin 81 Mg Tab.chew 1 Tab PO DAILY Amitriptyline Hcl 75 Mg Tablet 1 Tab PO QHS Amlodipine Besylate 10 Mg Tablet 10 Mg PO DAILY Allergies Allergies: Coded Allergies: No Known Drug Allergies (Unverified , 12/05/17) ROS General: YES: Fatigue, Malaise; No: Chills, Night Sweats, Appetite, Other PSYCHOLOGICAL ROS: YES: Anxiety; No: Behavioral Disorder, Concentration difficultie, Decreased libido, Depression, Disorientation, Hallucinations, Hostility, Irritablity, Memory difficulties, Mood Swings, Obsessive thoughts, Physical abuse, Sexual abuse, Sleep disturbances, Suicidal ideation, Other Eyes: No Blurry vision, No Decreased vision, No Double vision, No Dry eyes, No Excessive tearing, No Eye Pain, No Itchy Eyes, No Loss of vision, No Photophobia, No Scotomata, No Uses contacts, No Uses glasses, No Other HEENT: No: Heacaches, Visual Changes, Hearing change, Nasal congestion, Nasal discharge, Oral lesions, Sinus pain, Sore Throat, Epistaxis, Sneezing, Snoring, Tinnitus, Vertigo, Vocal changes, Other ALLERGY AND IMMUNOLOGY: No: Hives, Insect Bite Sensitivity, Itchy/Watery Eyes, Nasal Congestion, Post Nasal Drip, Seasonal Allergies, Other Hematological and Lymphatic: No: Bleeding Problems, Blood Clots, Blood Transfusions, Brusing, Night Sweats, Pallor, Swollen Lymph Nodes, Other ENDOCRINE: No: Breast Changes, Galactorrhea, Hair Pattern Changes, Hot Flashes, Malaise/lethargy, Mood Swings, Palpitations, Polydipsia/polyuria, Skin Changes, Temperature Intolerance, Unexpected Weight Changes, Other Breast: No New/Changing Breast Lumps, No Nipple changes, No Nipple discharge, No Other Respiratory: YES: Cough, Shortness of breath, SOB with excertion, Tachypnea, Wheezing; No: Hemoptysis, Orthopnea, Pleuritic Pain, Sputum Changes, Stridor, Other Cardiovascular: No Chest Pain, No Palpitations, No Orthopnea, No Paroxysmal Noc. Dyspnea, No Edema, No Lt Headedness, No Other Gastrointestinal: Yes Nausea; No Vomiting, No Abdominal Pain, No Diarrhea, No Constipation, No Melena, No Hematochezia, No Other Genitourinary: No Dysuria, No Frequency, No Incontinence, No Hematuria, No Retention, No Discharge, No Urgency, No Pain, No Flank Pain, No Other, No , No , No , No , No , No , No Musculoskeletal: No Gait Disturbance, No Joint Pain, No Joint Stiffness, No Joint Swelling, No Muscle Pain, No Muscular Weakness, No Pain In:, No Swelling In:, No Other Neurological: No Behavorial Changes, No Bowel/Bladder ControlChng, No Confusion, No Dizziness, No Gait Disturbance, No Headaches, No Impaired Coord/balance, No Memory Loss, No Numbness/Tingling, No Seizures, No Speech Problems, No Tremors, No Visual Changes, No Weakness, No Other Skin: No Dry Skin, No Eczema, No Hair Changes, No Lumps, No Mole Changes, No Mottling, No Nail Changes, No Pruritus, No Rash, No Skin Lesion Changes, No Other, No Acne Physical Exam General: Alert, Oriented X3, Cooperative, moderate distress HEENT: Atraumatic, PERRLA, EOMI, Mucous membr. moist/pink Lungs: Other Heart: S1S2, RRR, no thrills, no rubs, no gallops, no murmurs Abdomen: Normal bowel sounds, Soft, No tenderness, No hepatosplenomegaly, No masses Rectal Exam: not examined Extremities: No clubbing, No cyanosis, No edema, Normal pulses, No tenderness/swelling Skin: No rashes, No breakdown, No significant lesion Neuro: Normal gait, Normal speech, Strength at 5/5 X4 ext, Normal tone, Sensation intact, Cranial nerves 3-12 NL, Reflexes 2+ Psych/Mental Status: Mental status NL, Mood NL Vitals Vitals Vital Signs Date Time Temp Pulse Resp B/P (MAP) Pulse Ox O2 Delivery O2 Flow Rate FiO2 08/18/19 07:07 Nasal Cannula 2.0 08/18/19 06:50 16 08/18/19 06:20 97.9 77 141/63 (89) 98 97.9 Labs Labs Laboratory Tests Test 08/18/19 04:15 08/18/19 08:06 White Blood Count 10.4 x10^3/uL (4.0-11.0) Red Blood Count 2.60 x10^6/uL (3.50-5.40) Hemoglobin 8.1 g/dL (12.0-15.5) Hematocrit 23.5 % (36.0-47.0) Mean Corpuscular Volume 91 fL (79-100) Mean Corpuscular Hemoglobin 31 pg (25-35) Mean Corpuscular Hemoglobin Concent 34 g/dL (31-37) Red Cell Distribution Width 18.0 % (11.5-14.5) Platelet Count 292 x10^3/uL (140-400) Neutrophils (%) (Auto) 69 % (31-73) Lymphocytes (%) (Auto) 9 % (24-48) Monocytes (%) (Auto) 13 % (0-9) Eosinophils (%) (Auto) 9 % (0-3) Basophils (%) (Auto) 1 % (0-3) Neutrophils # (Auto) 7.1 x10^3/uL (1.8-7.7) Lymphocytes # (Auto) 1.0 x10^3/uL (1.0-4.8) Monocytes # (Auto) 1.3 x10^3/uL (0.0-1.1) Eosinophils # (Auto) 0.9 x10^3/uL (0.0-0.7) Basophils # (Auto) 0.0 x10^3/uL (0.0-0.2) Segmented Neutrophils % 64 % (35-66) Band Neutrophils % 1 % (0-9) Lymphocytes % 12 % (24-48) Monocytes % 13 % (0-10) Eosinophils % 10 % (0-5) Platelet Estimate Adequate (ADEQUATE) Polychromasia Slight Poikilocytosis Slight Anisocytosis Mod Target Cells Occ Tear Drop Cells Occ Ovalocytes Few Schistocytes Occ Sodium Level 135 mmol/L (136-145) Potassium Level 4.6 mmol/L (3.5-5.1) Chloride Level 92 mmol/L (98-107) Carbon Dioxide Level 27 mmol/L (21-32) Anion Gap 16 (6-14) Blood Urea Nitrogen 86 mg/dL (7-20) Creatinine 16.5 mg/dL (0.6-1.0) Estimated GFR (Cockcroft-Gault) 3.0 BUN/Creatinine Ratio 5 (6-20) Glucose Level 254 mg/dL (70-99) Calcium Level 7.9 mg/dL (8.5-10.1) Total Bilirubin 0.5 mg/dL (0.2-1.0) Aspartate Amino Transf (AST/SGOT) 13 U/L (15-37) Alanine Aminotransferase (ALT/SGPT) 14 U/L (14-59) Alkaline Phosphatase 100 U/L (46-116) Troponin I Quantitative 0.020 ng/mL (0.000-0.055) ZR-Kon-[id number]-Type Natriuretic Peptide > 89232 pg/mL (0-124) Total Protein 7.4 g/dL (6.4-8.2) Albumin 3.3 g/dL (3.4-5.0) Albumin/Globulin Ratio 0.8 (1.0-1.7) Glucose (Fingerstick) 154 mg/dL (70-99) Laboratory Tests Test 08/18/19 04:15 08/18/19 08:06 White Blood Count 10.4 x10^3/uL (4.0-11.0) Red Blood Count 2.60 x10^6/uL (3.50-5.40) Hemoglobin 8.1 g/dL (12.0-15.5) Hematocrit 23.5 % (36.0-47.0) Mean Corpuscular Volume 91 fL (79-100) Mean Corpuscular Hemoglobin 31 pg (25-35) Mean Corpuscular Hemoglobin Concent 34 g/dL (31-37) Red Cell Distribution Width 18.0 % (11.5-14.5) Platelet Count 292 x10^3/uL (140-400) Neutrophils (%) (Auto) 69 % (31-73) Lymphocytes (%) (Auto) 9 % (24-48) Monocytes (%) (Auto) 13 % (0-9) Eosinophils (%) (Auto) 9 % (0-3) Basophils (%) (Auto) 1 % (0-3) Neutrophils # (Auto) 7.1 x10^3/uL (1.8-7.7) Lymphocytes # (Auto) 1.0 x10^3/uL (1.0-4.8) Monocytes # (Auto) 1.3 x10^3/uL (0.0-1.1) Eosinophils # (Auto) 0.9 x10^3/uL (0.0-0.7) Basophils # (Auto) 0.0 x10^3/uL (0.0-0.2) Segmented Neutrophils % 64 % (35-66) Band Neutrophils % 1 % (0-9) Lymphocytes % 12 % (24-48) Monocytes % 13 % (0-10) Eosinophils % 10 % (0-5) Platelet Estimate Adequate (ADEQUATE) Polychromasia Slight Poikilocytosis Slight Anisocytosis Mod Target Cells Occ Tear Drop Cells Occ Ovalocytes Few Schistocytes Occ Sodium Level 135 mmol/L (136-145) Potassium Level 4.6 mmol/L (3.5-5.1) Chloride Level 92 mmol/L (98-107) Carbon Dioxide Level 27 mmol/L (21-32) Anion Gap 16 (6-14) Blood Urea Nitrogen 86 mg/dL (7-20) Creatinine 16.5 mg/dL (0.6-1.0) Estimated GFR (Cockcroft-Gault) 3.0 BUN/Creatinine Ratio 5 (6-20) Glucose Level 254 mg/dL (70-99) Calcium Level 7.9 mg/dL (8.5-10.1) Total Bilirubin 0.5 mg/dL (0.2-1.0) Aspartate Amino Transf (AST/SGOT) 13 U/L (15-37) Alanine Aminotransferase (ALT/SGPT) 14 U/L (14-59) Alkaline Phosphatase 100 U/L (46-116) Troponin I Quantitative 0.020 ng/mL (0.000-0.055) SU-Kjb-[id number]-Type Natriuretic Peptide > 90292 pg/mL (0-124) Total Protein 7.4 g/dL (6.4-8.2) Albumin 3.3 g/dL (3.4-5.0) Albumin/Globulin Ratio 0.8 (1.0-1.7) Glucose (Fingerstick) 154 mg/dL (70-99) Images Images CXR: Right sided dialysis catheter with tip projecting over the expected location of the superior vena cava. Enlarged cardiomediastinal silhouette. Patchy opacity within the right mid to lower lung is again seen with blunting of the right greater than left costophrenic angle. Mild interstitial prominence again seen IMPRESSION: * Redemonstration of focal opacity in the right lower lung which could be seen with atelectasis or infiltrate. There is also blunting of the right greater than left costophrenic angle therefore there may be small pleural effusion as well. * Enlarged cardiomediastinal silhouette is again seen. VTE Prophylaxis Ordered VTE Prophylaxis Devices: Yes VTE Pharmacological Prophylaxi: Yes Assessment/Plan Assessment/Plan A/P: Shortness of breath - from fluid overload 2/2 missed dialysis sessions most likely Intractable back pain - with radiculopathy to bilateral lower extremities Lower extremity pain - bilateral knees, ankles, states she has had extensive work-up at [facility] for neuropathy and vascular studies that were negative End-stage renal disease secondary to diabetes mellitus, hypertension and nephrosclerosis - [facility] dialysis Anxiety - on home meds Seizures - on keppra Osteoarthritis - will try topical voltaren Diabetes - basal bolus plus regimen in house Hypertension - will cont meds Abnormal right lower lobe lung consolidation - had recent pneumonia at [facility] and thoracentesis x2. She states this is stable Pelvic fluid - no sign of abscess, though density could be consistent with debris/blood, states her abdominal pain is improved after IV fentanyl only Aortic atherosclerosis - likely 2/2 ESRD FEN - Renal diet PPX - warfarin FULL CODE Dispo - inpatient 2 midnights. Justicifation of Admission Dx: Justifications for Admission: Justification of Admission Dx: Yes BRANDO TRIANA MD Aug 18, 2019 08:53
[2019-08-18] MEDS ORDERED: levETIRAcetam 250 MG TABLET PO SCH (09:00)
[2019-08-18] MEDS ORDERED: VENLAFAXINE 75 MG TABLET. PO SCH (09:00)
[2019-08-18 11:00] VITALS: BP 146/67
[2019-08-18] MEDS: SEVELAMER CARBONATE 800 MG TABLET. PO SCH ×2 (12:16→20:09)
[2019-08-18] MEDS: HYDROcodone/APAP 5/325MG 1 TAB TABLET PO PRN ×2 (12:16→23:11)
[2019-08-18] MEDS: FOLIC/VIT B COMP W-C (RENAL) TABLET. PO SCH (12:17)
[2019-08-18] MEDS: levETIRAcetam 250 MG TABLET PO SCH ×2 (12:17→20:42)
[2019-08-18] MEDS: ASPIRIN CHEWABLE 81 MG TABLET. PO SCH (12:18)
[2019-08-18] MEDS: amLODIPine BESYLATE 10 MG TABLET PO SCH (12:18)
[2019-08-18] MEDS: fentaNYL PF VIAL 100 MCG/2 ML VIAL IVP PRN ×3 (12:20→20:10)
[2019-08-18] MEDS ORDERED: EPOETIN ALFA 20,000 UNIT/ML VIAL. SQ ONE ×2 (12:30→21:00)
--- NOTE | 2019-08-18 12:51 | NUR ---
pt states that she no longer takes effexor at home. spoke with Dr. Marie and medication discontinued.
[2019-08-18] MEDS: HEPARIN for SUB-Q USE 5,000 UNIT/ML VIAL. SQ SCH ×2 (14:00→22:00)
[2019-08-18] MEDS ORDERED: IV NORMAL SALINE 1000ML BAG 1,000 ML IV PRN ×2 (14:08)
[2019-08-18] MEDS ORDERED: ALBUMIN HUMAN 25% 200 ML IV PRN (14:15)
[2019-08-18] MEDS ORDERED: DIALYSIS PATIENT. MC PRN ×2 (14:15)
[2019-08-18 15:00] VITALS: BP 132/62
--- NOTE | 2019-08-18 16:51 | NUR ---
PT LEFT THE UNIT AT [facility] 1400 FOR DIALYSIS. COVID SWAB SENT. BLOOD DRAWN IN DIALYSIS FOR PT INR
--- NOTE | 2019-08-18 19:04 | CONS ---
DATE OF CONSULTATION: 08/18/2019 REQUESTING PHYSICIAN: Hospitalist. REASON FOR CONSULTATION: Renal failure. HISTORY OF PRESENT ILLNESS: This is a 34-year-old female with history of diabetes mellitus, hypertension, end-stage renal disease, hemodialysis dependent. The patient has not been on dialysis for the last 5 days due to "card is not working." She is currently admitted in need of ongoing dialysis and management of comorbidities associated with end-stage renal disease. She denies chest pain or shortness of breath. No abdominal pain, nausea, vomiting, diarrhea. PAST MEDICAL HISTORY: 1. Diabetes mellitus. 2. Hypertension. 3. End-stage renal disease, hemodialysis dependent. 4. Diabetic neuropathy. 5. Anxiety/depression. 6. Anemia of chronic kidney disease secondary to hyperparathyroidism and renal disease, peritoneal dialysis catheter placement and removal, AV fistula placement, left brachiocephalic. ALLERGIES: None. MEDICATIONS: Reviewed per med list. FAMILY HISTORY: Of note for renal failure in her mother. SOCIAL HISTORY: The patient resides independently. REVIEW OF SYSTEMS: No headache, sinus problem, nasal drainage, epistaxis, change in vision or hearing. No difficulty swallowing. No fever, chills, cough, sputum production, or hemoptysis. No chest pain. Some dyspnea on exertion. No abdominal pain. No nausea, vomiting, diarrhea. No seizures or malignancies. PHYSICAL EXAMINATION: GENERAL APPEARANCE: The patient is awake, conversant. HEENT: Clear. NECK: No increased JVD. No thyromegaly, mass, or adenopathy. LUNGS: Decreased breath sound at bases. CARDIAC: Without S3 or rub. ABDOMEN: Soft, nontender. No bruits. EXTREMITIES: Trace lower extremity edema bilaterally. NEUROLOGIC: Nonfocal, nonlocalized. PSYCHIATRIC: Fair attention to detail, appropriate affect. LABORATORY DATA: White count 10.4, hemoglobin 8.1, hematocrit 23.5. Sodium 135, potassium 4.6, chloride 92, CO2 of 27, BUN 86, creatinine 16.5, GFR is 3. IMPRESSION: 1. End-stage renal disease secondary to diabetic nephropathy. 2. Noncompliance with dialysis. 3. Mild volume overload. RECOMMENDATIONS: 1. Proceed with dialysis today. 2. Discussed with the patient the importance of continuing dialysis and contacting the unit if she has transportation difficulties. The [employer] social [employer] tutor could be of assistance. 3. Epogen for anemia of chronic kidney disease. NOEMÍ STEARNS MD DR: CHRIST/manasa JOB#: [id number] / [id number]
[2019-08-18 20:05] VITALS: BP 180/78
[2019-08-18] MEDS: WARFARIN 4 MG TABLET. PO SCH (20:09)
[2019-08-18] MEDS: CARVEDILOL 12.5 MG TABLET. PO SCH (20:10)
[2019-08-18] MEDS ORDERED: PANTOPRAZOLE 40 MG TABLET.DR. PO ONE (20:15)
[2019-08-18 22:45] VITALS: BP 166/79
--- NOTE | 2019-08-18 23:55 | CONS ---
DATE OF CONSULTATION: 08/18/2019 REASON FOR CONSULTATION: Dyspnea. HISTORY OF PRESENT ILLNESS: The patient is a pleasant 34-year-old woman who comes into the hospital in the setting of shortness of breath and body aches. She had missed a few dialysis treatments apparently because of broken down car and reported shortness of breath with minimal exertion. She does not have any prior history of cardiovascular issues. She was admitted overnight and is planned for dialysis today. Cardiology was asked to evaluate her due to an elevated BNP. PAST MEDICAL HISTORY: 1. End-stage renal disease. 2. Diabetes. 3. Hypertension. PAST SURGICAL HISTORY: . FAMILY HISTORY: Notable for hypertension. SOCIAL HISTORY: The patient uses marijuana. She denies any smoking. She does occasionally use alcohol. CURRENT CARDIOVASCULAR MEDICATIONS: 1. Warfarin. 2. Carvedilol 25 mg p.o. b.i.d. 3. Aspirin 81 mg daily. 4. Amlodipine 10 mg daily. REVIEW OF SYSTEMS: Negative for 10 out of 14 systems reviewed, unless otherwise mentioned above in HPI. ALLERGIES: No known drug allergies. PHYSICAL EXAMINATION: VITAL SIGNS: Afebrile, 80, 18, 180/78, 100% on room air. GENERAL: She is alert and oriented x 3, no acute distress. HEAD AND NECK: Unremarkable. CARDIAC: Regular rate and rhythm. LUNGS: Clear. ABDOMEN: Soft, nontender. EXTREMITIES: No cyanosis or edema. SKIN: No rashes. NEUROLOGIC: No focal deficits. MUSCULOSKELETAL: No trauma. PSYCHIATRIC: Mental status within normal limits. DIAGNOSTIC STUDIES: Hemoglobin 8.1, platelet count 292. BNP greater than 35,000. Troponin minimally elevated, but within normal limits. EKG is unremarkable. IMPRESSION: 1. Acute diastolic heart failure in the setting of missed dialysis sessions. 2. Hypertension. 3. End-stage renal disease. RECOMMENDATIONS: At this present time, we will plan for continued dialysis. She recently had an echocardiogram in 06/2019, which revealed a near normal ejection fraction at 50%. The patient did have moderate mitral regurgitation. We will plan for a limited echocardiogram after adequate hemodialysis and reassess her regurgitation, although I suspect that this is not the source of her dyspnea and more likely related to volume overload. Thank you for this consultation. JAVI MICHAUD MD DR: BHAVIN/manasa JOB#: [id number] / [id number]
[2019-08-19] MEDS: fentaNYL PF VIAL 100 MCG/2 ML VIAL IVP PRN ×7 (00:10→23:13)
[2019-08-19] MEDS: methylPREDNISolone SOD SUCC PF 40 MG/ML VIAL. IV SCH ×2 (00:56→10:03)
[2019-08-19 03:45] VITALS: BP 145/69
[2019-08-19 04:23] LABS: BASO % 0 % (0-3); EOS # 0.2 x10^3/uL (0.0-0.7); EOS % 2 % (0-3); HEMATOCRIT 26.6 % (36.0-47.0); HEMOGLOBIN 8.8 g/dL (12.0-15.5); LYMPH # 0.2 x10^3/uL (1.0-4.8); LYMPH % 2 % (24-48); MEAN CORPUSCULAR HEMOGLOBIN 31 pg (25-35); MEAN CORPUSCULAR HGB CONC 33 g/dL (31-37); MEAN CORPUSCULAR VOLUME 92 fL (79-100); MONO # 0.3 x10^3/uL (0.0-1.1); MONO % 3 % (0-9); NEUT # 9.6 x10^3/uL (1.8-7.7); NEUT % 93 % (31-73); PLATELET COUNT 304 x10^3/uL (140-400); RED BLOOD COUNT 2.88 x10^6/uL (3.50-5.40); WHITE BLOOD COUNT 10.3 x10^3/uL (4.0-11.0)
[2019-08-19] MEDS: HEPARIN for SUB-Q USE 5,000 UNIT/ML VIAL. SQ SCH ×2 (05:22→10:56)
[2019-08-19 07:00] VITALS: BP 183/86
[2019-08-19] MEDS: PANTOPRAZOLE 40 MG TABLET.DR. PO SCH (07:25)
[2019-08-19] MEDS: ONDANSETRON PF 4 MG/2 ML VIAL. IV PRN ×3 (07:27→20:29)
[2019-08-19] MEDS ORDERED: DEXTROSE 50% 25 GM / 50ML DISP.SYRIN. IV PRN (08:00)
[2019-08-19] MEDS: INSULIN LISPRO 300 UNITS/3 ML VIAL. SQ SCH ×3 (08:00→18:13)
--- NOTE | 2019-08-19 08:01 | PDOC ---
PROGRESS NOTES Chief Complaint Chief Complaint A/P: Shortness of breath - from fluid overload 2/2 missed dialysis sessions most likely, improved Intractable back pain - with radiculopathy to bilateral lower extremities. She notes this is gout Lower extremity pain - bilateral knees, ankles, states she has had extensive work-up at [facility] for neuropathy and vascular studies that were negative. She notes this is gout. Check uric acid, CRP End-stage renal disease secondary to diabetes mellitus, hypertension and nephrosclerosis - [facility] dialysis Anxiety - on home meds Seizures - on keppra Osteoarthritis - will try topical voltaren Diabetes - basal bolus plus regimen in house Hypertension - will cont meds Abnormal right lower lobe lung consolidation - had recent pneumonia at [facility] and thoracentesis x2. She states this is stable Pelvic fluid - no sign of abscess, though density could be consistent with debris/blood, states her abdominal pain is improved after IV fentanyl only Aortic atherosclerosis - likely 2/2 ESRD FEN - Renal diet PPX - warfarin FULL CODE Dispo - inpatient 2 midnights. History of Present Illness History of Present Illness Ms Wilder is a 34 yo F w/PMHx Anxiety, Arthritis, Diabetes-Type II, Hypertension, neuropathy, ESRD on HD (previously PD) who c/o shortness of breath and diffuse myalgias. Patient states that she has missed her last few dialysis treatments because her car is broken down. She denies any chest pain. She stat es the shortness of breath is worsened with minimum exertion. She denies any fever. She does indicate that she has a cough but it is been nonproductive. Patient rates pain in her body and an 8 out of 10 07/05/2019 s/p left brachiocephalic AV fistula creation. 08/18: Labs WBC 10.4 Hb 8.1, platelets 292, NA 135, K4.6, BUN 86, CR 16.5, glucose 254, BNP 35,000, albumin 3.3. Afebrile overnight. C/O diffuse pain, she attributes this to gout as she was told this after she had ankle XR on 08/08: "Normal alignment. No fracture. Symmetric ankle mortise. Ankle soft tissue swelling. Extensive vascular calcifications". INR 2.1. Has abdominal pain as well. KUB reviewed with very large stool burden. Vitals Vitals Vital Signs Date Time Temp Pulse Resp B/P (MAP) Pulse Ox O2 Delivery O2 Flow Rate FiO2 08/19/19 07:26 95 Nasal Cannula 2.0 08/19/19 07:00 97.8 78 18 183/86 (118) 97.8 Physical Exam General: Alert, Oriented X3, Cooperative, moderate distress Lungs: Clear Abdomen: Normal bowel sounds, Soft, No tenderness, No hepatosplenomegaly, No masses Extremities: No clubbing, No cyanosis, No edema, Normal pulses, No tenderness/swelling Skin: No rashes, No breakdown, No significant lesion Labs LABS Laboratory Tests Test 08/18/19 08:06 08/18/19 12:08 08/18/19 20:56 08/19/19 04:00 Glucose (Fingerstick) 154 mg/dL (70-99) 96 mg/dL (70-99) 204 mg/dL (70-99) White Blood Count 10.3 x10^3/uL (4.0-11.0) Red Blood Count 2.88 x10^6/uL (3.50-5.40) Hemoglobin 8.8 g/dL (12.0-15.5) Hematocrit 26.6 % (36.0-47.0) Mean Corpuscular Volume 92 fL (79-100) Mean Corpuscular Hemoglobin 31 pg (25-35) Mean Corpuscular Hemoglobin Concent 33 g/dL (31-37) Red Cell Distribution Width 18.0 % (11.5-14.5) Platelet Count 304 x10^3/uL (140-400) Neutrophils (%) (Auto) 93 % (31-73) Lymphocytes (%) (Auto) 2 % (24-48) Monocytes (%) (Auto) 3 % (0-9) Eosinophils (%) (Auto) 2 % (0-3) Basophils (%) (Auto) 0 % (0-3) Neutrophils # (Auto) 9.6 x10^3/uL (1.8-7.7) Lymphocytes # (Auto) 0.2 x10^3/uL (1.0-4.8) Monocytes # (Auto) 0.3 x10^3/uL (0.0-1.1) Eosinophils # (Auto) 0.2 x10^3/uL (0.0-0.7) Basophils # (Auto) 0.0 x10^3/uL (0.0-0.2) Prothrombin Time 23.0 SEC (11.7-14.0) Prothromb Time International Ratio 2.1 (0.8-1.1) Test 08/19/19 07:33 Glucose (Fingerstick) 232 mg/dL (70-99) Assessment and Plan Assessmemt and Plan Problems Medical Problems: (1) CHF (congestive heart failure) Status: Acute (2) Hypoxemia Status: Acute Comment Review of Relevant I have reviewed the following items jamie (where applicable) has been applied. Labs Laboratory Tests Test 08/18/19 04:00 08/18/19 04:15 08/18/19 08:06 08/18/19 12:08 Prothrombin Time 25.0 SEC (11.7-14.0) Prothromb Time International Ratio 2.3 (0.8-1.1) White Blood Count 10.4 x10^3/uL (4.0-11.0) Red Blood Count 2.60 x10^6/uL (3.50-5.40) Hemoglobin 8.1 g/dL (12.0-15.5) Hematocrit 23.5 % (36.0-47.0) Mean Corpuscular Volume 91 fL (79-100) Mean Corpuscular Hemoglobin 31 pg (25-35) Mean Corpuscular Hemoglobin Concent 34 g/dL (31-37) Red Cell Distribution Width 18.0 % (11.5-14.5) Platelet Count 292 x10^3/uL (140-400) Neutrophils (%) (Auto) 69 % (31-73) Lymphocytes (%) (Auto) 9 % (24-48) Monocytes (%) (Auto) 13 % (0-9) Eosinophils (%) (Auto) 9 % (0-3) Basophils (%) (Auto) 1 % (0-3) Neutrophils # (Auto) 7.1 x10^3/uL (1.8-7.7) Lymphocytes # (Auto) 1.0 x10^3/uL (1.0-4.8) Monocytes # (Auto) 1.3 x10^3/uL (0.0-1.1) Eosinophils # (Auto) 0.9 x10^3/uL (0.0-0.7) Basophils # (Auto) 0.0 x10^3/uL (0.0-0.2) Segmented Neutrophils % 64 % (35-66) Band Neutrophils % 1 % (0-9) Lymphocytes % 12 % (24-48) Monocytes % 13 % (0-10) Eosinophils % 10 % (0-5) Platelet Estimate Adequate (ADEQUATE) Polychromasia Slight Poikilocytosis Slight Anisocytosis Mod Target Cells Occ Tear Drop Cells Occ Ovalocytes Few Schistocytes Occ Sodium Level 135 mmol/L (136-145) Potassium Level 4.6 mmol/L (3.5-5.1) Chloride Level 92 mmol/L (98-107) Carbon Dioxide Level 27 mmol/L (21-32) Anion Gap 16 (6-14) Blood Urea Nitrogen 86 mg/dL (7-20) Creatinine 16.5 mg/dL (0.6-1.0) Estimated GFR (Cockcroft-Gault) 3.0 BUN/Creatinine Ratio 5 (6-20) Glucose Level 254 mg/dL (70-99) Calcium Level 7.9 mg/dL (8.5-10.1) Total Bilirubin 0.5 mg/dL (0.2-1.0) Aspartate Amino Transf (AST/SGOT) 13 U/L (15-37) Alanine Aminotransferase (ALT/SGPT) 14 U/L (14-59) Alkaline Phosphatase 100 U/L (46-116) Troponin I Quantitative 0.020 ng/mL (0.000-0.055) IK-Jer-A-Type Natriuretic Peptide > 23639 pg/mL (0-124) Total Protein 7.4 g/dL (6.4-8.2) Albumin 3.3 g/dL (3.4-5.0) Albumin/Globulin Ratio 0.8 (1.0-1.7) Glucose (Fingerstick) 154 mg/dL (70-99) 96 mg/dL (70-99) Test 08/18/19 20:56 08/19/19 04:00 08/19/19 07:33 Glucose (Fingerstick) 204 mg/dL (70-99) 232 mg/dL (70-99) White Blood Count 10.3 x10^3/uL (4.0-11.0) Red Blood Count 2.88 x10^6/uL (3.50-5.40) Hemoglobin 8.8 g/dL (12.0-15.5) Hematocrit 26.6 % (36.0-47.0) Mean Corpuscular Volume 92 fL (79-100) Mean Corpuscular Hemoglobin 31 pg (25-35) Mean Corpuscular Hemoglobin Concent 33 g/dL (31-37) Red Cell Distribution Width 18.0 % (11.5-14.5) Platelet Count 304 x10^3/uL (140-400) Neutrophils (%) (Auto) 93 % (31-73) Lymphocytes (%) (Auto) 2 % (24-48) Monocytes (%) (Auto) 3 % (0-9) Eosinophils (%) (Auto) 2 % (0-3) Basophils (%) (Auto) 0 % (0-3) Neutrophils # (Auto) 9.6 x10^3/uL (1.8-7.7) Lymphocytes # (Auto) 0.2 x10^3/uL (1.0-4.8) Monocytes # (Auto) 0.3 x10^3/uL (0.0-1.1) Eosinophils # (Auto) 0.2 x10^3/uL (0.0-0.7) Basophils # (Auto) 0.0 x10^3/uL (0.0-0.2) Prothrombin Time 23.0 SEC (11.7-14.0) Prothromb Time International Ratio 2.1 (0.8-1.1) Laboratory Tests Test 08/18/19 08:06 08/18/19 12:08 08/18/19 20:56 08/19/19 04:00 Glucose (Fingerstick) 154 mg/dL (70-99) 96 mg/dL (70-99) 204 mg/dL (70-99) White Blood Count 10.3 x10^3/uL (4.0-11.0) Red Blood Count 2.88 x10^6/uL (3.50-5.40) Hemoglobin 8.8 g/dL (12.0-15.5) Hematocrit 26.6 % (36.0-47.0) Mean Corpuscular Volume 92 fL (79-100) Mean Corpuscular Hemoglobin 31 pg (25-35) Mean Corpuscular Hemoglobin Concent 33 g/dL (31-37) Red Cell Distribution Width 18.0 % (11.5-14.5) Platelet Count 304 x10^3/uL (140-400) Neutrophils (%) (Auto) 93 % (31-73) Lymphocytes (%) (Auto) 2 % (24-48) Monocytes (%) (Auto) 3 % (0-9) Eosinophils (%) (Auto) 2 % (0-3) Basophils (%) (Auto) 0 % (0-3) Neutrophils # (Auto) 9.6 x10^3/uL (1.8-7.7) Lymphocytes # (Auto) 0.2 x10^3/uL (1.0-4.8) Monocytes # (Auto) 0.3 x10^3/uL (0.0-1.1) Eosinophils # (Auto) 0.2 x10^3/uL (0.0-0.7) Basophils # (Auto) 0.0 x10^3/uL (0.0-0.2) Prothrombin Time 23.0 SEC (11.7-14.0) Prothromb Time International Ratio 2.1 (0.8-1.1) Test 08/19/19 07:33 Glucose (Fingerstick) 232 mg/dL (70-99) Medications Current Medications Morphine Sulfate (Morphine Sulfate) 4 mg 1X ONCE IV Last administered on 08/18/19at 04:55; Start 08/18/19 at 04:45; Stop 08/18/19 at 04:46; Status DC Ondansetron HCl (Zofran) 4 mg 1X ONCE IVP Last administered on 08/18/19at 04:53; Start 08/18/19 at 04:45; Stop 08/18/19 at 04:46; Status DC Ondansetron HCl (Zofran) 4 mg PRN Q8HRS PRN IV NAUSEA/VOMITING; Start 08/18/19 at 05:15; Stop 08/18/19 at 08:54; Status DC Morphine Sulfate (Morphine Sulfate) 4 mg PRN Q2HR PRN IV PAIN Last administered on 08/18/19at 06:20; Start 08/18/19 at 05:15; Stop 08/18/19 at 08:54; Status DC Ondansetron HCl (Zofran) 4 mg PRN Q4HRS PRN IV NAUSEA/VOMITING Last administered on 08/19/19 07:27; Start 08/18/19 at 09:00 Fentanyl Citrate (Fentanyl 2ml Vial) 25 mcg PRN Q4HRS PRN IVP PAIN Last administered on 08/19/19at 00:10; Start 08/18/19 at 09:00; Stop 08/19/19 at 00:39; Status DC Heparin Sodium (Porcine) (Heparin Sodium) 5,000 unit Q8HRS SQ ; Start 08/18/19 at 14:00 Amlodipine Besylate (Norvasc) 10 mg DAILY PO Last administered on 08/18/19 12:18; Start 08/18/19 at 09:00 Aspirin (Aspirin Chewable) 81 mg DAILY PO Last administered on 08/18/19 12:18; Start 08/18/19 at 09:00 Vitamin B Complex/ Vitamin C (Wendy-Marvin) 1 tab DAILY PO Last administered on 08/18/19at 12:17; Start 08/18/19 at 09:00 Acetaminophen/ Hydrocodone Bitart (Lortab 5/325) 1 tab PRN Q6HRS PRN PO PAIN Last administered on 08/18/19 23:11; Start 08/18/19 at 09:00 Sevelamer Carbonate (Renvela) 800 mg TIDWMEALS PO Last administered on 08/18/19at 20:09; Start 08/18/19 at 12:00 Carvedilol (Coreg) 25 mg BIDWMEALS PO Last administered on 08/18/19at 20:10; Start 08/18/19 at 17:00 Levetiracetam (Keppra) 250 mg TID PO ; Start 08/18/19 at 09:00; Stop 08/18/19 at 09:01; Status DC Pantoprazole Sodium (Protonix) 40 mg DAILYAC PO Last administered on 08/19/19at 07:25; Start 08/19/19 at 07:30 Venlafaxine HCl (Effexor) 37.5 mg DAILY PO ; Start 08/18/19 at 09:00; Stop 08/18/19 at 12:43; Status DC Levetiracetam (Keppra) 375 mg BID PO Last administered on 08/18/19at 20:42; Start 08/18/19 at 09:00 Epoetin Fredrick (PROCRIT for DIALYSIS PTS) 10,000 unit 1X ONCE SQ ; Start 08/18/19 at 12:30; Stop 08/18/19 at 12:31; Status DC Epoetin Fredrick (PROCRIT for DIALYSIS PTS) 10,000 unit 1X ONCE SQ Last administered on 08/18/19at 20:47; Start 08/18/19 at 21:00; Stop 08/18/19 at 2 1:01; Status DC Sodium Chloride 1,000 ml @ 1,000 mls/hr Q1H PRN IV hypotension; Start 08/18/19 at 14:08; Stop 08/18/19 at 20:07; Status DC Albumin Human 200 ml @ 200 mls/hr 1X PRN PRN IV Hypotension; Start 08/18/19 at 14:15; Stop 08/18/19 at 20:14; Status DC Sodium Chloride 1,000 ml @ 400 mls/hr Q2H30M PRN IV PATENCY; Start 08/18/19 at 14:08; Stop 08/19/19 at 02:07; Status DC Info (PHARMACY MONITORING -- do not chart) 1 each PRN DAILY PRN MC SEE COMMENTS; Start 08/18/19 at 14:15; Status Cancel Info (PHARMACY MONITORING -- do not chart) 1 each PRN DAILY PRN MC SEE COMMENTS; Start 08/18/19 at 14:15 Warfarin Sodium (Coumadin) 4 mg DAILY16 PO Last administered on 08/18/19at 20:09; Start 08/18/19 at 17:00 Warfarin Sodium (Coumadin Per Physician) 1 each PRN DAILY PRN MC SEE COMMENTS; Start 08/18/19 at 17:00 Pantoprazole Sodium (Protonix) 40 mg 1X ONCE PO Last administered on 08/18/19at 20:42; Start 08/18/19 at 20:15; Stop 08/18/19 at 20:16; Status DC Fentanyl Citrate (Fentanyl 2ml Vial) 50 mcg PRN Q2HRS PRN IVP PAIN Last administered on 08/19/19at 07:26; Start 08/19/19 at 00:45 Methylprednisolone Sodium Succinate (SOLU-Medrol 40MG VIAL) 80 mg Q12HR IV Last administered on 08/19/19at 00:56; Start 08/19/19 at 01:00 Insulin Human Lispro (HumaLOG) 0-7 UNITS TIDWMEALS SQ ; Start 08/19/19 at 08:00; Status UNV Dextrose (Dextrose 50%-Water Syringe) 12.5 gm PRN Q15MIN PRN IV SEE COMMENTS; Start 08/19/19 at 08:00; Status UNV Active Scripts Active Prednisone 20 Mg Tablet 1 Tab PO TID PRN Grayson 5-325 Tablet (Acetaminophen/Hydrocodone Bitart) 1 Each Tablet 1 Tab PO PRN Q6HRS PRN Heparin Sod 5,000 Unit/0.5 ml (Heparin Sodium,Porcine/Pf) 5,000 Unit/0.5 Ml Syringe 5,000 Unit SQ Q 8 HRS PRN 10 Days Hydrocodone-Apap 10-325 (Hydrocodone Bit/Acetaminophen) 1 Tab Tablet 1 Tab PO PRN Q4HRS PRN 10 Days Reported Gabapentin 600 Mg Tablet 600 Mg PO TID Coumadin (Warfarin Sodium) 4 Mg Tablet 1 Tab PO DAILY Venlafaxine Hcl 37.5 Mg Tablet 37.5 Mg PO DAILY Renvela (Sevelamer Carbonate) 800 Mg Tablet 1 Tab PO TID 30 Days Wendy-Marvin Tablet (Folic Acid/Vitamin B Comp W-C) 0.8 Mg Tablet 1 Tab PO DAILY 30 Days Protonix (Pantoprazole Sodium) 20 Mg Tablet.dr 2 Tab PO DAILY Levetiracetam 750 Mg Tab.er.24h 1 Tab PO DAILY 30 Days Carvedilol 25 Mg Tablet 25 Mg PO BIDWMEALS Aspirin 81 Mg Tab.chew 1 Tab PO DAILY Amitriptyline Hcl 75 Mg Tablet 1 Tab PO QHS Amlodipine Besylate 10 Mg Tablet 10 Mg PO DAILY Vitals/I & O Vital Sign - Last 24 Hours 08/18/19 08/18/19 08/18/19 08/18/19 11:00 12:16 12:18 12:20 Temp 98.1 98.1 Pulse 75 74 Resp 18 B/P (MAP) 146/67 (93) 146/67 Pulse Ox 96 98 98 O2 Delivery Nasal Cannula Nasal Cannula Nasal Cannula O2 Flow Rate 2.0 2.0 2.0 08/18/19 08/18/19 08/18/19 08/18/19 12:50 13:16 15:00 15:26 Temp 98.0 98.0 Pulse 79 Resp 18 B/P (MAP) 132/62 (85) Pulse Ox 98 98 96 98 O2 Delivery Nasal Cannula Nasal Cannula Nasal Cannula Nasal Cannula O2 Flow Rate 2.0 2.0 2.0 2.0 08/18/19 08/18/19 08/18/19 08/18/19 20:05 20:10 20:10 20:20 Temp 98.5 98.5 Pulse 80 79 Resp 18 16 B/P (MAP) 180/78 (112) 180/78 Pulse Ox 100 O2 Delivery Room Air Nasal Cannula Nasal Cannula O2 Flow Rate 2.0 2.0 08/18/19 08/18/19 08/18/19 08/19/19 20:50 22:45 23:11 00:07 Temp 98.6 98.6 Pulse 84 Resp 16 18 16 16 B/P (MAP) 166/79 (108) Pulse Ox 93 O2 Delivery Nasal Cannula Room Air Nasal Cannula Nasal Cannula O2 Flow Rate 2.0 2.0 2.0 08/19/19 08/19/19 08/19/19 08/19/19 00:10 03:45 03:52 04:00 Temp 98.3 98.3 Pulse 78 Resp 16 18 19 B/P (MAP) 145/69 (94) Pulse Ox 86 95 O2 Delivery Nasal Cannula Room Air Nasal Cannula Nasal Cannula O2 Flow Rate 2.0 2.0 2.0 08/19/19 08/19/19 08/19/19 04:30 07:00 07:26 Temp 97.8 97.8 Pulse 78 Resp 16 18 B/P (MAP) 183/86 (118) Pulse Ox 98 95 O2 Delivery Nasal Cannula Room Air Nasal Cannula O2 Flow Rate 2.0 2.0 Intake and Output 08/18/19 08/18/19 08/19/19 15:00 23:00 07:00 Intake Total 150 ml 300 ml 200 ml Output Total 0 ml Balance 150 ml 300 ml 200 ml BRANDO TRIANA MD Aug 19, 2019 08:01
[2019-08-19 08:02] LABS: BILIRUBIN,URINE NEGATIVE (NEG); CLARITY,URINE CLOUDY; COLOR,URINE YELLOW; NITRITE,URINE NEGATIVE (NEG); PH,URINE 7.5 (<5.0-8.0); PROTEIN,URINE >=300 mg/dL (NEG-TRACE); UROBILINOGEN,URINE 0.2 mg/dL (0.2 mg/dL)
[2019-08-19 08:17] LABS: BACTERIA,URINE MODERATE /HPF (0-FEW); SQUAMOUS EPITHELIAL CELL,UR MANY /LPF; YEAST,URINE PRESENT /HPF
[2019-08-19] MEDS: FOLIC/VIT B COMP W-C (RENAL) TABLET. PO SCH (10:02)
[2019-08-19] MEDS: levETIRAcetam 250 MG TABLET PO SCH ×2 (10:02→20:29)
[2019-08-19] MEDS: ASPIRIN CHEWABLE 81 MG TABLET. PO SCH (10:03)
[2019-08-19] MEDS: SEVELAMER CARBONATE 800 MG TABLET. PO SCH ×3 (10:03→18:00)
[2019-08-19] MEDS: CARVEDILOL 12.5 MG TABLET. PO SCH ×2 (10:07→18:01)
[2019-08-19] MEDS: amLODIPine BESYLATE 10 MG TABLET PO SCH (10:10)
[2019-08-19] MEDS ORDERED: BISACODYL 10 MG SUPP.RECT. PR PRN (10:30)
[2019-08-19 11:00] VITALS: BP 191/89
--- NOTE | 2019-08-19 11:00 | RAD ---
EXAM: Supine AP view of the abdomen DATE: 08/19/2019 10:25 AM INDICATION: Constipation, concern for ileus or obstruction COMPARISON: No Prior FINDINGS: No abnormal small or large bowel dilatation. Moderate to large volume colonic stool content. No abnormal soft tissue mass effect. No suspicious calcifications are seen. Evaluation for free intraperitoneal gas is limited on this supine exam. IUD is seen within the pelvis. Chronic calcification the pelvis, likely fibroid. Small right pleural effusion with lung base opacities. IMPRESSION: 1. No evidence for bowel obstruction. 2. Moderate to large volume colonic stool content. Electronically signed by: Tk Santiago MD (08/19/2019 10:57 AM) [id number]
--- NOTE | 2019-08-19 11:34 | PDOC ---
CARDIOLOGY PROGRESS NOTE SUBJECTIVE: No new cardiac issues overnight. She only complains of diffuse pain. No chest pain. No dyspnea. HD went well yesterday. OBJECTIVE: Vital Signs/I&O: Vital Signs Date Time Temp Pulse Resp B/P (MAP) Pulse Ox O2 Delivery O2 Flow Rate FiO2 08/19/19 11:00 98.1 76 18 191/89 (123) 96 Room Air 98.1 08/19/19 07:56 2.0 I & O 08/18/19 08/18/19 08/19/19 15:00 23:00 07:00 Intake Total 150 ml 300 ml 200 ml Output Total 0 ml Balance 150 ml 300 ml 200 ml Objective: GEN.: No apparent distress. Alert and oriented. HEENT: Head is normocephalic, atraumatic NECK: Supple. LUNGS: Clear to auscultation. HEART: RRR, S1, S2 present. Peripheral pulses intact ABDOMEN: Soft, nontender. Positive bowel sounds. EXTREMITIES: Without any cyanosis. NEUROLOGIC: Normal speech, normal tone PSYCHIATRIC: Normal affect, normal mood. SKIN: No ulcerations CURRENT MEDICATIONS: Current Medications Medications (Trade) Dose Ordered Sig/Mary Kay Route PRN Reason Start Time Stop Time Status Last Admin Dose Admin Sevelamer Carbonate (Renvela) 800 mg TIDWMEALS PO 08/18/19 12:00 08/19/19 10:03 Carvedilol (Coreg) 25 mg BIDWMEALS PO 08/18/19 17:00 08/19/19 10:07 Pantoprazole Sodium (Protonix) 40 mg DAILYAC PO 08/19/19 07:30 08/19/19 07:25 Epoetin Fredrick (PROCRIT for DIALYSIS PTS) 10,000 unit 1X ONCE SQ 08/18/19 21:00 08/18/19 21:01 DC 08/18/19 20:47 Warfarin Sodium (Coumadin) 4 mg DAILY16 PO 08/18/19 17:00 08/18/19 20:09 Warfarin Sodium (Coumadin Per Physician) 1 each PRN DAILY PRN MC SEE COMMENTS 08/18/19 17:00 08/19/19 11:23 Pantoprazole Sodium (Protonix) 40 mg 1X ONCE PO 08/18/19 20:15 08/18/19 20:16 DC 08/18/19 20:42 Fentanyl Citrate (Fentanyl 2ml Vial) 50 mcg PRN Q2HRS PRN IVP PAIN 08/19/19 00:45 08/19/19 07:26 Methylprednisolone Sodium Succinate (SOLU-Medrol 40MG VIAL) 80 mg Q12HR IV 08/19/19 01:00 08/19/19 10:03 Bisacodyl (Dulcolax Supp) 10 mg PRN DAILY PRN MT CONSTIPATION 08/19/19 10:30 08/19/19 10:47 DIAGNOSTIC TESTING: Labs: Laboratory Tests 08/19/19 04:00 Laboratory Tests Test 08/18/19 12:08 08/18/19 13:30 08/18/19 20:56 08/19/19 04:00 Glucose (Fingerstick) 96 mg/dL (70-99) 204 mg/dL (70-99) H Coronavirus (COVID-19)(PCR) Not detected (NOT DETECT.) White Blood Count 10.3 x10^3/uL (4.0-11.0) Red Blood Count 2.88 x10^6/uL (3.50-5.40) L Hemoglobin 8.8 g/dL (12.0-15.5) L Hematocrit 26.6 % (36.0-47.0) L Mean Corpuscular Volume 92 fL (79-100) Mean Corpuscular Hemoglobin 31 pg (25-35) Mean Corpuscular Hemoglobin Concent 33 g/dL (31-37) Red Cell Distribution Width 18.0 % (11.5-14.5) H Platelet Count 304 x10^3/uL (140-400) Neutrophils (%) (Auto) 93 % (31-73) H Lymphocytes (%) (Auto) 2 % (24-48) L Monocytes (%) (Auto) 3 % (0-9) Eosinophils (%) (Auto) 2 % (0-3) Basophils (%) (Auto) 0 % (0-3) Neutrophils # (Auto) 9.6 x10^3/uL (1.8-7.7) H Lymphocytes # (Auto) 0.2 x10^3/uL (1.0-4.8) L Monocytes # (Auto) 0.3 x10^3/uL (0.0-1.1) Eosinophils # (Auto) 0.2 x10^3/uL (0.0-0.7) Basophils # (Auto) 0.0 x10^3/uL (0.0-0.2) Prothrombin Time 23.0 SEC (11.7-14.0) H Prothromb Time International Ratio 2.1 (0.8-1.1) H Test 08/19/19 07:33 08/19/19 07:45 Glucose (Fingerstick) 232 mg/dL (70-99) H Urine Collection Type Unknown Urine Color Yellow Urine Clarity Cloudy Urine pH 7.5 (<5.0-8.0) Urine Specific [place] 1.020 (1.000-1.030) Urine Protein >=300 mg/dL (NEG-TRACE) Urine Glucose (UA) 250 mg/dL (NEG) Urine Ketones (Stick) Negative mg/dL (NEG) Urine Blood Trace (NEG) Urine Nitrite Negative (NEG) Urine Bilirubin Negative (NEG) Urine Urobilinogen Dipstick 0.2 mg/dL (0.2 mg/dL) Urine Leukocyte Esterase Small (NEG) Urine RBC 1-2 /HPF (0-2) Urine WBC 5-10 /HPF (0-4) Urine Squamous Epithelial Cells Many /LPF Urine Bacteria Moderate /HPF (0-FEW) Urine Mucus Slight /LPF Urine Yeast Present /HPF ASSESSMENT: 1. Acute on chronic diastolic HF 2. HTN 3. ESRD 4. Moderate mitral regurgitation. PLAN: 1. Continue coreg. Patient has previously been on Hydralazine and amlodipine. Would restart home meds for better BP control 2. Treatment of neuropathy and gout per PCP 3. Supportive care from CV standpoint. outpt echo for evaluation of valvular disease. Supportive care. Thanks Justicifation of Admission Dx: Justifications for Admission: Justification of Admission Dx: Yes JAVI MICHAUD MD Aug 19, 2019 11:34
[2019-08-19] MEDS: PSYLLIUM HUSK (SUGAR FREE) 1 PKT PACKET PO SCH (12:08)
[2019-08-19] MEDS: POLYETHYLENE GLYCOL 3350 17 GM PACKET. PO SCH (12:08)
[2019-08-19] MEDS: SIMETHICONE 80 MG TAB.CHEW PO PRN ×2 (12:09→18:01)
[2019-08-19 12:12] LABS: ALBUMIN 3.3 g/dL (3.4-5.0); ALBUMIN/GLOBULIN RATIO 0.8 (1.0-1.7); CALCIUM 8.6 mg/dL (8.5-10.1); CREATININE 8.2 mg/dL (0.6-1.0); GFR 6.8; POTASSIUM 4.8 mmol/L (3.5-5.1); TOTAL BILIRUBIN 0.4 mg/dL (0.2-1.0); TOTAL PROTEIN 7.4 g/dL (6.4-8.2)
[2019-08-19] MEDS: DICLOFENAC SODIUM 1% TOPICAL GEL 100GM TUBE. TP SCH ×2 (14:56→20:37)
[2019-08-19 15:00] VITALS: BP 186/86
[2019-08-19] MEDS: WARFARIN 4 MG TABLET. PO SCH (15:18)
[2019-08-19] MEDS: HYDROcodone/APAP 5/325MG 1 TAB TABLET PO PRN ×2 (15:41→22:32)
[2019-08-19] MEDS: LUBIPROSTONE 24 MCG CAPSULE PO SCH (18:00)
[2019-08-19 19:20] VITALS: BP 162/77
[2019-08-19 23:05] VITALS: BP 185/84
[2019-08-20 02:50] VITALS: BP 169/75
[2019-08-20] MEDS: fentaNYL PF VIAL 100 MCG/2 ML VIAL IVP PRN ×2 (03:01→08:33)
[2019-08-20] MEDS: ONDANSETRON PF 4 MG/2 ML VIAL. IV PRN ×2 (03:01→08:30)
[2019-08-20] MEDS: HYDROcodone/APAP 5/325MG 1 TAB TABLET PO PRN ×2 (05:26→11:39)
[2019-08-20 07:00] VITALS: BP 152/69
[2019-08-20] MEDS: FOLIC/VIT B COMP W-C (RENAL) TABLET. PO SCH (08:23)
[2019-08-20] MEDS: LUBIPROSTONE 24 MCG CAPSULE PO SCH (08:23)
[2019-08-20] MEDS: PANTOPRAZOLE 40 MG TABLET.DR. PO SCH (08:24)
[2019-08-20] MEDS: SEVELAMER CARBONATE 800 MG TABLET. PO SCH ×2 (08:24→12:00)
[2019-08-20] MEDS: levETIRAcetam 250 MG TABLET PO SCH (08:26)
[2019-08-20] MEDS: CARVEDILOL 12.5 MG TABLET. PO SCH (08:26)
[2019-08-20] MEDS: ASPIRIN CHEWABLE 81 MG TABLET. PO SCH (08:26)
[2019-08-20] MEDS: amLODIPine BESYLATE 10 MG TABLET PO SCH (08:28)
[2019-08-20] MEDS: POLYETHYLENE GLYCOL 3350 17 GM PACKET. PO SCH (08:34)
[2019-08-20] MEDS: PSYLLIUM HUSK (SUGAR FREE) 1 PKT PACKET PO SCH (08:34)
[2019-08-20] MEDS: INSULIN LISPRO 300 UNITS/3 ML VIAL. SQ SCH ×2 (08:43→12:00)
[2019-08-20] MEDS: DICLOFENAC SODIUM 1% TOPICAL GEL 100GM TUBE. TP SCH (08:46)
[2019-08-20 08:59] LABS: BASO % 0 % (0-3); EOS # 0.1 x10^3/uL (0.0-0.7); EOS % 1 % (0-3); HEMATOCRIT 25.6 % (36.0-47.0); HEMOGLOBIN 8.6 g/dL (12.0-15.5); LYMPH # 0.5 x10^3/uL (1.0-4.8); LYMPH % 5 % (24-48); MEAN CORPUSCULAR HEMOGLOBIN 30 pg (25-35); MEAN CORPUSCULAR HGB CONC 33 g/dL (31-37); MEAN CORPUSCULAR VOLUME 91 fL (79-100); MONO # 0.7 x10^3/uL (0.0-1.1); MONO % 8 % (0-9); NEUT # 7.7 x10^3/uL (1.8-7.7); NEUT % 85 % (31-73); PLATELET COUNT 329 x10^3/uL (140-400); RED BLOOD COUNT 2.82 x10^6/uL (3.50-5.40); RED CELL DISTRIBUTION WIDTH 17.9 % (11.5-14.5)
[2019-08-20 10:15] VITALS: BP 179/82
--- NOTE | 2019-08-20 11:27 | PDOC ---
JUSTYN HAWKINS SARAH 08/20/19 1126: CARDIO Progress Notes Date and Time Date of Service 08/20/19 Time of Evaluation 1120 Subjective Subjective: No Chest Pain, No shortness of breath, Other (c/o left ankle pain, wanting pain meds) Vitals Vitals Vital Signs Date Time Temp Pulse Resp B/P (MAP) Pulse Ox O2 Delivery O2 Flow Rate FiO2 08/20/19 10:15 97.3 18 179/82 (114) 100 Room Air 97.3 08/20/19 08:28 80 08/19/19 20:00 2.0 Weight Weight [ ] Input and Output Intake and Output Intake and Output 08/20/19 07:00 Intake Total 420 ml Output Total 0 ml Balance 420 ml Intake Oral 420 ml Output Urine Total 0 ml # Bowel Movements 2 Laboratory Labs Laboratory Tests Test 08/19/19 11:30 08/19/19 12:08 08/19/19 17:10 08/19/19 20:42 Sodium Level 139 mmol/L (136-145) Potassium Level 4.8 mmol/L (3.5-5.1) Chloride Level 99 mmol/L (98-107) Carbon Dioxide Level 25 mmol/L (21-32) Anion Gap 15 (6-14) Blood Urea Nitrogen 38 mg/dL (7-20) Creatinine 8.2 mg/dL (0.6-1.0) Estimated GFR (Cockcroft-Gault) 6.8 BUN/Creatinine Ratio 5 (6-20) Glucose Level 255 mg/dL (70-99) Uric Acid 3.0 mg/dL (2.6-6.0) Calcium Level 8.6 mg/dL (8.5-10.1) Total Bilirubin 0.4 mg/dL (0.2-1.0) Aspartate Amino Transf (AST/SGOT) 15 U/L (15-37) Alanine Aminotransferase (ALT/SGPT) 13 U/L (14-59) Alkaline Phosphatase 121 U/L (46-116) C-Reactive Protein, Quantitative 112.5 mg/L (0-3.3) Total Protein 7.4 g/dL (6.4-8.2) Albumin 3.3 g/dL (3.4-5.0) Albumin/Globulin Ratio 0.8 (1.0-1.7) Glucose (Fingerstick) 244 mg/dL (70-99) 156 mg/dL (70-99) 186 mg/dL (70-99) Test 08/20/19 07:16 08/20/19 08:15 Glucose (Fingerstick) 169 mg/dL (70-99) White Blood Count 9.0 x10^3/uL (4.0-11.0) Red Blood Count 2.82 x10^6/uL (3.50-5.40) Hemoglobin 8.6 g/dL (12.0-15.5) Hematocrit 25.6 % (36.0-47.0) Mean Corpuscular Volume 91 fL (79-100) Mean Corpuscular Hemoglobin 30 pg (25-35) Mean Corpuscular Hemoglobin Concent 33 g/dL (31-37) Red Cell Distribution Width 17.9 % (11.5-14.5) Platelet Count 329 x10^3/uL (140-400) Neutrophils (%) (Auto) 85 % (31-73) Lymphocytes (%) (Auto) 5 % (24-48) Monocytes (%) (Auto) 8 % (0-9) Eosinophils (%) (Auto) 1 % (0-3) Basophils (%) (Auto) 0 % (0-3) Neutrophils # (Auto) 7.7 x10^3/uL (1.8-7.7) Lymphocytes # (Auto) 0.5 x10^3/uL (1.0-4.8) Monocytes # (Auto) 0.7 x10^3/uL (0.0-1.1) Eosinophils # (Auto) 0.1 x10^3/uL (0.0-0.7) Basophils # (Auto) 0.0 x10^3/uL (0.0-0.2) Prothrombin Time 31.0 SEC (11.7-14.0) Prothromb Time International Ratio 3.0 (0.8-1.1) Physical Exam HEENT: Neck Supple W Full Motion Chest: Symmetric LUNGS: Clear to Auscultation Heart: S1S2, RRR, murmurs (2/6 systolic murmur ) Abdomen: Soft N/T Extremities: No Edema Neurology: alert, oriented, follow commands Assessment Assessment 1. Acute on chronic diastolic HF; appears compensated 2. HTN; labile 3. Hyperlipidemia 4. Diabetes, II 5. ESRD on HD 6. Moderate mitral regurgitation. Recommendations Continue Coreg, Norvasc Resume hydralazine for better BP control (take at home, but not on home med list- patient unsure of dose). Fluid offloading via HD Supportive care Pain management as per PCP Justicifation of Admission Dx: Justifications for Admission: Justification of Admission Dx: Yes JAVI MICHAUD MD 08/20/19 1158: CARDIO Progress Notes Plan Plan Pt. seen and examined. Agree with above ANIMAL ASSISTANT note. Supportive care. JUSTYN HAWKINS APRN Aug 20, 2019 11:26 JAVI MICHAUD MD Aug 20, 2019 11:58
[2019-08-20 11:40] VITALS: BP 179/82
[2019-08-20] MEDS ORDERED: LUBI24CA7 PO (11:53)
[2019-08-20] MEDS ORDERED: HYDR-2869 PO (11:53)
[2019-08-20] MEDS ORDERED: Diclofenac Sodium TP (11:53)
--- NOTE | 2019-08-20 12:00 | PDOC3 ---
Discharge Summary Visit Information Date of Admission: Aug 18, 2019 Date of Discharge: Aug 20, 2019 Admitting Diagnosis Comment: Shortness of breath - from fluid overload 2/2 missed dialysis sessions most likely Intractable back pain - with radiculopathy to bilateral lower extremities Lower extremity pain - bilateral knees, ankles, states she has had extensive work-up at [facility] for neuropathy and vascular studies that were negative End-stage renal disease secondary to diabetes mellitus, hypertension and nephrosclerosis - [facility] dialysis Anxiety - on home meds Seizures - on keppra Osteoarthritis - will try topical voltaren Diabetes - basal bolus plus regimen in house Hypertension - will cont meds Abnormal right lower lobe lung consolidation - had recent pneumonia at [facility] and thoracentesis x2. She states this is stable Pelvic fluid - no sign of abscess, though density could be consistent with debris/blood, states her abdominal pain is improved after IV fentanyl only Aortic atherosclerosis - likely 2/2 ESRD Final Diagnosis Problems Medical Problems: (1) CHF (congestive heart failure) Status: Acute (2) Hypoxemia Status: Acute Shortness of breath - from fluid overload 2/2 missed dialysis sessions most likely, improved Intractable back pain - with radiculopathy to bilateral lower extremities. Lower extremity pain - bilateral knees, ankles, states she has had extensive work-up at [facility] for neuropathy and vascular studies that were negative. Unlikely gout since uric acid is within normal range. End-stage renal disease secondary to diabetes mellitus, hypertension and nephrosclerosis - [facility] dialysis Anxiety - on home meds Seizures - on keppra Osteoarthritis - will try topical voltaren Diabetes - basal bolus plus regimen in house Hypertension - will cont meds Abnormal right lower lobe lung consolidation - had recent pneumonia at [facility] and thoracentesis x2. She states this is stable, inflammatory markers elevated as a consequence, patient denies symptoms compatible with ongoing infection Pelvic fluid - no sign of abscess, though density could be consistent with debris/blood, states her abdominal pain is improved after IV fentanyl only Aortic atherosclerosis - likely 2/2 ESRD Brief Hospital Course Allergies Allergies Coded Allergies Type Severity Reaction Last Updated Verified No Known Drug Allergies 12/05/17 No Vital Signs Vital Signs Date Time Temp Pulse Resp B/P (MAP) Pulse Ox O2 Delivery O2 Flow Rate FiO2 08/20/19 11:40 80 179/82 08/20/19 11:39 Room Air 08/20/19 10:15 97.3 18 100 97.3 08/19/19 20:00 2.0 Lab Results Laboratory Tests Test 08/18/19 12:08 08/18/19 13:30 08/18/19 20:56 08/19/19 04:00 Glucose (Fingerstick) 96 mg/dL (70-99) 204 mg/dL (70-99) Coronavirus (COVID-19)(PCR) Not detected (NOT DETECT.) White Blood Count 10.3 x10^3/uL (4.0-11.0) Red Blood Count 2.88 x10^6/uL (3.50-5.40) Hemoglobin 8.8 g/dL (12.0-15.5) Hematocrit 26.6 % (36.0-47.0) Mean Corpuscular Volume 92 fL (79-100) Mean Corpuscular Hemoglobin 31 pg (25-35) Mean Corpuscular Hemoglobin Concent 33 g/dL (31-37) Red Cell Distribution Width 18.0 % (11.5-14.5) Platelet Count 304 x10^3/uL (140-400) Neutrophils (%) (Auto) 93 % (31-73) Lymphocytes (%) (Auto) 2 % (24-48) Monocytes (%) (Auto) 3 % (0-9) Eosinophils (%) (Auto) 2 % (0-3) Basophils (%) (Auto) 0 % (0-3) Neutrophils # (Auto) 9.6 x10^3/uL (1.8-7.7) Lymphocytes # (Auto) 0.2 x10^3/uL (1.0-4.8) Monocytes # (Auto) 0.3 x10^3/uL (0.0-1.1) Eosinophils # (Auto) 0.2 x10^3/uL (0.0-0.7) Basophils # (Auto) 0.0 x10^3/uL (0.0-0.2) Prothrombin Time 23.0 SEC (11.7-14.0) Prothromb Time International Ratio 2.1 (0.8-1.1) Test 08/19/19 07:33 08/19/19 07:45 08/19/19 11:30 08/19/19 12:08 Glucose (Fingerstick) 232 mg/dL (70-99) 244 mg/dL (70-99) Urine Collection Type Unknown Urine Color Yellow Urine Clarity Cloudy Urine pH 7.5 (<5.0-8.0) Urine Specific [place] 1.020 (1.000-1.030) Urine Protein >=300 mg/dL (NEG-TRACE) Urine Glucose (UA) 250 mg/dL (NEG) Urine Ketones (Stick) Negative mg/dL (NEG) Urine Blood Trace (NEG) Urine Nitrite Negative (NEG) Urine Bilirubin Negative (NEG) Urine Urobilinogen Dipstick 0.2 mg/dL (0.2 mg/dL) Urine Leukocyte Esterase Small (NEG) Urine RBC 1-2 /HPF (0-2) Urine WBC 5-10 /HPF (0-4) Urine Squamous Epithelial Cells Many /LPF Urine Bacteria Moderate /HPF (0-FEW) Urine Mucus Slight /LPF Urine Yeast Present /HPF Sodium Level 139 mmol/L (136-145) Potassium Level 4.8 mmol/L (3.5-5.1) Chloride Level 99 mmol/L (98-107) Carbon Dioxide Level 25 mmol/L (21-32) Anion Gap 15 (6-14) Blood Urea Nitrogen 38 mg/dL (7-20) Creatinine 8.2 mg/dL (0.6-1.0) Estimated GFR (Cockcroft-Gault) 6.8 BUN/Creatinine Ratio 5 (6-20) Glucose Level 255 mg/dL (70-99) Uric Acid 3.0 mg/dL (2.6-6.0) Calcium Level 8.6 mg/dL (8.5-10.1) Total Bilirubin 0.4 mg/dL (0.2-1.0) Aspartate Amino Transf (AST/SGOT) 15 U/L (15-37) Alanine Aminotransferase (ALT/SGPT) 13 U/L (14-59) Alkaline Phosphatase 121 U/L (46-116) C-Reactive Protein, Quantitative 112.5 mg/L (0-3.3) Total Protein 7.4 g/dL (6.4-8.2) Albumin 3.3 g/dL (3.4-5.0) Albumin/Globulin Ratio 0.8 (1.0-1.7) Test 08/19/19 17:10 08/19/19 20:42 08/20/19 07:16 08/20/19 08:15 Glucose (Fingerstick) 156 mg/dL (70-99) 186 mg/dL (70-99) 169 mg/dL (70-99) White Blood Count 9.0 x10^3/uL (4.0-11.0) Red Blood Count 2.82 x10^6/uL (3.50-5.40) Hemoglobin 8.6 g/dL (12.0-15.5) Hematocrit 25.6 % (36.0-47.0) Mean Corpuscular Volume 91 fL (79-100) Mean Corpuscular Hemoglobin 30 pg (25-35) Mean Corpuscular Hemoglobin Concent 33 g/dL (31-37) Red Cell Distribution Width 17.9 % (11.5-14.5) Platelet Count 329 x10^3/uL (140-400) Neutrophils (%) (Auto) 85 % (31-73) Lymphocytes (%) (Auto) 5 % (24-48) Monocytes (%) (Auto) 8 % (0-9) Eosinophils (%) (Auto) 1 % (0-3) Basophils (%) (Auto) 0 % (0-3) Neutrophils # (Auto) 7.7 x10^3/uL (1.8-7.7) Lymphocytes # (Auto) 0.5 x10^3/uL (1.0-4.8) Monocytes # (Auto) 0.7 x10^3/uL (0.0-1.1) Eosinophils # (Auto) 0.1 x10^3/uL (0.0-0.7) Basophils # (Auto) 0.0 x10^3/uL (0.0-0.2) Prothrombin Time 31.0 SEC (11.7-14.0) Prothromb Time International Ratio 3.0 (0.8-1.1) Test 08/20/19 11:29 Glucose (Fingerstick) 117 mg/dL (70-99) Laboratory Tests Test 08/19/19 12:08 08/19/19 17:10 08/19/19 20:42 08/20/19 07:16 Glucose (Fingerstick) 244 mg/dL (70-99) 156 mg/dL (70-99) 186 mg/dL (70-99) 169 mg/dL (70-99) Test 08/20/19 08:15 08/20/19 11:29 White Blood Count 9.0 x10^3/uL (4.0-11.0) Red Blood Count 2.82 x10^6/uL (3.50-5.40) Hemoglobin 8.6 g/dL (12.0-15.5) Hematocrit 25.6 % (36.0-47.0) Mean Corpuscular Volume 91 fL (79-100) Mean Corpuscular Hemoglobin 30 pg (25-35) Mean Corpuscular Hemoglobin Concent 33 g/dL (31-37) Red Cell Distribution Width 17.9 % (11.5-14.5) Platelet Count 329 x10^3/uL (140-400) Neutrophils (%) (Auto) 85 % (31-73) Lymphocytes (%) (Auto) 5 % (24-48) Monocytes (%) (Auto) 8 % (0-9) Eosinophils (%) (Auto) 1 % (0-3) Basophils (%) (Auto) 0 % (0-3) Neutrophils # (Auto) 7.7 x10^3/uL (1.8-7.7) Lymphocytes # (Auto) 0.5 x10^3/uL (1.0-4.8) Monocytes # (Auto) 0.7 x10^3/uL (0.0-1.1) Eosinophils # (Auto) 0.1 x10^3/uL (0.0-0.7) Basophils # (Auto) 0.0 x10^3/uL (0.0-0.2) Prothrombin Time 31.0 SEC (11.7-14.0) Prothromb Time International Ratio 3.0 (0.8-1.1) Glucose (Fingerstick) 117 mg/dL (70-99) Brief Hospital Course History and Physical Date of Admission Date of Admission DATE: 08/18/19 TIME: 08:43 Identification/Chief Complaint Chief Complaint Shortness of breath Source Source: Patient History of Present Illness History of Present Illness Ms Wilder is a 33 yo F w/PMHx Anxiety, Arthritis, Diabetes-Type II, Hypertension, neuropathy, ESRD on HD (previously PD) who c/o shortness of breath and diffuse myalgias. Patient states that she has missed her last few dialysis treatments because her car is broken down. She denies any chest pain. She states the shortness of breath is worsened with minimum exertion. She denies any fever. She does indicate that she has a cough but it is been nonproductive. Patient rates pain in her body and an 8 out of 10 07/05/2019 s/p left brachiocephalic AV fistula creation. 08/18: Labs WBC 10.4 Hb 8.1, platelets 292, NA 135, K4.6, BUN 86, CR 16.5, glucose 254, BNP 35,000, albumin 3.3. Afebrile overnight. C/O diffuse pain, she attributes this to gout as she was told this after she had ankle XR on 08/08: "Normal alignment. No fracture. Symmetric ankle mortise. Ankle soft tissue swelling. Extensive vascular calcifications". INR 2.1. Has abdominal pain as well. KUB reviewed with very large stool burden. 08/19: Patient had resolution of her constipation and has had at least 3 bowel movements overnight. Patient's abdominal discomfort is better left ankle discomfort and unlikely to be gout given the normal uric acid levels. Reassurance has been provided and the patient was recommended to follow-up with her primary care physician for hopefully get a referral for chronic pain management. Reassurance provided unsure if the patient is going to follow through given her longstanding history of nonadherence to the treatment plans outlined for her. Greater than 30 minutes were spent in the discharge process with the patient counseling coordination of care and arrangements for a safe discharge GENERAL APPEARANCE: The patient is awake, conversant. HEENT: Clear. NECK: No increased JVD. No thyromegaly, mass, or adenopathy. LUNGS: Decreased breath sound at bases. CARDIAC: Without S3 or rub. ABDOMEN: Soft, nontender. No bruits. EXTREMITIES: Trace lower extremity edema bilaterally. NEUROLOGIC: Nonfocal, nonlocalized. PSYCHIATRIC: Fair attention to detail, appropriate affect. Discharge Information Condition at Discharge: Improved Follow Up: Weeks Disposition/Orders: D/C to Home Scheduled Amitriptyline Hcl (Amitriptyline Hcl) 75 Mg Tablet, 1 TAB PO QHS for antidepr essant, #30 Ref 3 (Reported) Entered as Reported by: Radha Hollingsworth on 10/1155 Amlodipine Besylate (Amlodipine Besylate) 10 Mg Tablet, 10 MG PO DAILY, (Reported) Entered as Reported by: BECKY MALAVE on 12/05/17 0800 Last Action: Continued on 08/18/19853 by BRANDO TRIANA MD Aspirin (Aspirin) 81 Mg Tab.chew, 1 TAB PO DAILY for blood thinner, #30 Ref 3 (Reported) Entered as Reported by: Radha Hollingsworth on 12/28/181155 Last Action: Continued on 08/18/19853 by BRANDO TRIANA MD Carvedilol (Carvedilol) 25 Mg Tablet, 25 MG PO BIDWMEALS for CARDIAC, (Reported) Entered as Reported by: Radha Hollingsworth on 12/28/181155 Last Action: Converted on 08/18/19853 by BRANDO TRIANA MD Folic Acid/Vitamin B Comp W-C (Wendy-Marvin Tablet) 0.8 Mg Tablet, 1 TAB PO DAILY for supplement for 30 Days, #30 Ref 0 (Reported) Entered as Reported by: Radha Hollingsworth on 12/28/181155 Last Action: Continued on 08/18/19853 by BRADNO TRIANA MD Gabapentin (Gabapentin) 600 Mg Tablet, 600 MG PO TID for NEUROGENIC PAIN, (Reported) Entered as Reported by: DAVID SALAZAR on 07/01/19 0608 Hydralazine Hcl (Hydralazine Hcl) 50 Mg Tablet, 50 MG PO BID for HTN for 30 Days, #60 Prescribed by: LAURA WARD MD on 08/20/19 1153 Levetiracetam (Levetiracetam) 750 Mg Tab.er.24h, 1 TAB PO DAILY for antibiotic for 30 Days, #30 Ref 0 (Reported) Entered as Reported by: Radha Hollingsworth on 12/28/181155 Last Action: Converted on 08/18/19854 by BRANDO TRIANA MD Lubiprostone (Amitiza) 24 Mcg Capsule, 24 MCG PO BIDWMEALS for constipation for 30 Days, #60 Prescribed by: LAURA WARD MD on 08/20/19 1153 Pantoprazole Sodium (Protonix) 20 Mg Tablet.dr, 2 TAB PO DAILY for GERD, #30 (Reported) Entered as Reported by: Radha Hollingsworth on 12/28/18 115 Last Action: Converted on 08/18/19854 by BRANDO TRIANA MD Sevelamer Carbonate (Renvela) 800 Mg Tablet, 1 TAB PO TID for renal function for 30 Days, #90 Ref 0 (Reported) Entered as Reported by: Radha Hollingsworth on 12/28/18 115 Last Action: Continued on 08/18/19 0854 by BRANDO TRIANA MD Venlafaxine Hcl (Venlafaxine Hcl) 37.5 Mg Tablet, 37.5 MG PO DAILY for antidepressant, (Reported) Entered as Reported by: Radha Hollingsworth on 12/28/181155 Last Action: Converted on 08/18/19854 by BRANDO TRIANA MD Warfarin Sodium (Coumadin) 4 Mg Tablet, 1 TAB PO DAILY for anticoagulant therapy, #30 (Reported) Entered as Reported by: DONNA RINCON on 06/17/19 1637 Last Action: Continued on 08/18/191517 by BRANDO TRIANA MD [Diclofenac Sodium] 100 GM GEL..GRAM., 1 YUE TP BID for Pain for 30 Days, #60 Prescribed by: LAURA WARD MD on 08/20/19 1153 Scheduled PRN Heparin Sodium,Porcine/Pf (Heparin Sod 5,000 Unit/0.5 ml) 5,000 Unit/0.5 Ml Syringe, 5,000 UNIT SQ Q 8 HRS PRN for CLOT PREVENTION for 10 Days, #30 Prescribed by: PHILLIP MENDOZA MD on 07/06/19 1403 Hydrocodone Bit/Acetaminophen (Hydrocodone-Apap 10-325 ) 1 Tab Tablet, 1 TAB PO PRN Q4HRS PRN for MODERATE PAIN, SEVERE PAIN for 10 Days, #30 Prescribed by: PHILLIP MENDOZA MD on 07/06/19 1400 Hydrocodone/Apap 5-325 ([place] 5-325 Tablet) 1 Each Tablet, 1 TAB PO PRN Q6HRS PRN for PAIN, #10 Ref 0 Prescribed by: TSERING HOYT D.O. on 08/09/19 0951 Last Action: Continued on 08/18/19853 by BRANDO TRIANA MD Discontinued Medications Prednisone (Prednisone) 20 Mg Tablet, 1 TAB PO TID PRN for GOUT, #10 Prescribed by: TSERING HOYT D.O. on 08/09/19 0951 Justicifation of Admission Dx: Justifications for Admission: Justification of Admission Dx: Yes LAURA WARD MD Aug 20, 2019 12:00
--- NOTE | 2019-08-20 12:03 | NUR ---
SS following for discharge planning. SS reviewed pt chart and discussed with pt RN. Pt is from home and is currently on room air. Pt has outpatient dialysis at [facility], ; fax [phone]. Discharge order on the chart for home with self care. SS phoned and faxed clinical to [facility].
--- NOTE | 2019-08-20 12:12 | EKG ---
[facility] [address] [place] [address] Test Date: 2019-08-18 Test Time: 03:37:02 Pat Name: JORGE ESTRADA Department: Room: 207 Gender: F Anthropology Department Chair: : 1985 Requested By: CELINA CHARLES Order Number: [id number] Reading MD: Geoff Kaur MD Measurements Intervals [place] Rate: 79 P: 42 TN: 156 QRS: 57 QRSD: 82 T: 104 QT: 414 QTc: 481 Interpretive Statements SINUS RHYTHM NON-SPECIFIC ST/T CHANGES Electronically Signed On 08-20-2019 13:18:08 CDT by Geoff Kaur MD
--- NOTE | 2019-08-20 12:35 | PDOC ---
SUBJECTIVE ROS No new complaints, No SOB OBJECTIVE Vital Signs Vital Signs Date Time Temp Pulse Resp B/P (MAP) Pulse Ox O2 Delivery O2 Flow Rate FiO2 08/20/19 11:40 80 179/82 08/20/19 11:39 Room Air 08/20/19 10:15 97.3 18 100 97.3 08/19/19 20:00 2.0 I & 0 Intake and Output 08/20/19 07:00 Intake Total 420 ml Output Total 0 ml Balance 420 ml Intake Oral 420 ml Output Urine Total 0 ml # Bowel Movements 2 PHYSICAL EXAM Physical Exam General: NAD, she was seen in her rom and later she was with her mother on the 6th floor, ambulating HEENT: OM moist Lungs: decreased at bases, Non labored Heart: S1S2, Abdomen: Normal bowel sounds, Soft, No tenderness, Extremities: No edema, N Skin: No rashes, Neuro: grossly normal No tomlinson DIAGNOSIS/ASSESSMENT Assessment & Plan ESRD- On HD TTS No indication for HD today Hx of Non Compliance, From renal standpoint can be dced, advised to go back to OP Unit tomorrow Acute on chronic diastolic HF; appears compensated Seen by cardiology HTN; labile , antihypertensives, card managing On Coreg, Norvasc,Resumed hydralazine Anemia- stable, SHANAE per protocol Diabetes, II Moderate mitral regurgitation. for better BP control (take at home, but not on home med list- patient unsure of dose). COMMENT/RELEVANT DATA Meds Current Medications Medications (Trade) Dose Ordered Sig/Mary Kay Start Time Stop Time Status Last Admin Dose Admin Acetaminophen/ Hydrocodone Bitart (Lortab 5/325) 1 tab PRN Q6HRS PRN 08/18/19 09:00 08/20/19 11:39 1 TAB Albumin Human 200 ml @ 200 mls/hr 1X PRN PRN 08/18/19 14:15 08/18/19 20:14 DC Amlodipine Besylate (Norvasc) 10 mg DAILY 08/18/19 09:00 08/20/19 08:28 10 MG Aspirin (Aspirin Chewable) 81 mg DAILY 08/18/19 09:00 08/20/19 08:26 81 MG Bisacodyl (Dulcolax Supp) 10 mg PRN DAILY PRN 08/19/19 10:30 08/19/19 10:47 10 MG Carvedilol (Coreg) 25 mg BIDWMEALS 08/18/19 17:00 08/20/19 08:26 25 MG Dextrose (Dextrose 50%-Water Syringe) 12.5 gm PRN Q15MIN PRN 08/19/19 08:00 Diclofenac Sodium (Voltaren) 1 sheldon BID 08/19/19 14:00 08/19/19 20:37 1 SHELDON Epoetin Fredrick (PROCRIT for DIALYSIS PTS) 10,000 unit 1X ONCE 08/18/19 21:00 08/18/19 21:01 DC 08/18/19 20:47 10,000 UNIT Fentanyl Citrate (Fentanyl 2ml Vial) 50 mcg PRN Q2HRS PRN 08/19/19 00:45 08/20/19 08:33 50 MCG Heparin Sodium (Porcine) (Heparin Sodium) 5,000 unit Q8HRS 08/18/19 14:00 08/19/19 10:57 DC Hydralazine HCl (Apresoline) 50 mg BID 08/20/19 12:00 08/20/19 11:40 50 MG Info (PHARMACY MONITORING -- do not chart) 1 each PRN DAILY PRN 08/18/19 14:15 Insulin Human Lispro (HumaLOG) 0-7 UNITS TIDWMEALS 08/19/19 08:00 08/20/19 08:43 3 UNITS Levetiracetam (Keppra) 375 mg BID 08/18/19 09:00 08/20/19 08:26 375 MG Lubiprostone (Amitiza) 24 mcg BIDWMEALS 08/19/19 17:00 08/20/19 08:23 24 MCG Methylprednisolone Sodium Succinate (SOLU-Medrol 40MG VIAL) 80 mg Q12HR 08/19/19 01:00 08/19/19 13:11 DC 08/19/19 10:03 80 MG Morphine Sulfate (Morphine Sulfate) 4 mg PRN Q2HR PRN 08/18/19 05:15 08/18/19 08:54 DC 08/18/19 06:20 4 MG Ondansetron HCl (Zofran) 4 mg PRN Q4HRS PRN 08/18/19 09:00 08/20/19 08:30 4 MG Pantoprazole Sodium (Protonix) 40 mg 1X ONCE 6/13/20 20:15 08/18/19 20:16 DC 08/18/19 20:42 40 MG Polyethylene Glycol (miraLAX PACKET) 17 gm DAILY 08/19/19 10:30 08/19/19 12:08 17 GM Psyllium Hydrophilic Mucilloid (Metamucil Fiber Packet) 1 pkt DAILY 08/19/19 10:30 08/19/19 12:08 1 PKT Sevelamer Carbonate (Renvela) 800 mg TIDWMEALS 08/18/19 12:00 08/20/19 08:24 800 MG Simethicone (Gas-X) 80 mg PRN AFTMEALHC PRN 08/19/19 10:30 08/19/19 18:01 80 MG Sodium Chloride 1,000 ml @ 400 mls/hr Q2H30M PRN 08/18/19 14:08 08/19/19 02:07 DC Venlafaxine HCl (Effexor) 37.5 mg DAILY 08/18/19 09:00 08/18/19 12:43 DC Vitamin B Complex/ Vitamin C (Wendy-Marvin) 1 tab DAILY 08/18/19 09:00 08/20/19 08:23 1 TAB Warfarin Sodium (Coumadin Per Physician) 1 each PRN DAILY PRN 08/18/19 17:00 08/20/19 08:56 1 EACH Warfarin Sodium (Coumadin) 4 mg DAILY16 08/18/19 17:00 08/19/19 15:18 4 MG Lab Laboratory Tests Test 08/19/19 17:10 08/19/19 20:42 08/20/19 07:16 08/20/19 08:15 Glucose (Fingerstick) 156 mg/dL (70-99) 186 mg/dL (70-99) 169 mg/dL (70-99) White Blood Count 9.0 x10^3/uL (4.0-11.0) Red Blood Count 2.82 x10^6/uL (3.50-5.40) Hemoglobin 8.6 g/dL (12.0-15.5) Hematocrit 25.6 % (36.0-47.0) Mean Corpuscular Volume 91 fL (79-100) Mean Corpuscular Hemoglobin 30 pg (25-35) Mean Corpuscular Hemoglobin Concent 33 g/dL (31-37) Red Cell Distribution Width 17.9 % (11.5-14.5) Platelet Count 329 x10^3/uL (140-400) Neutrophils (%) (Auto) 85 % (31-73) Lymphocytes (%) (Auto) 5 % (24-48) Monocytes (%) (Auto) 8 % (0-9) Eosinophils (%) (Auto) 1 % (0-3) Basophils (%) (Auto) 0 % (0-3) Neutrophils # (Auto) 7.7 x10^3/uL (1.8-7.7) Lymphocytes # (Auto) 0.5 x10^3/uL (1.0-4.8) Monocytes # (Auto) 0.7 x10^3/uL (0.0-1.1) Eosinophils # (Auto) 0.1 x10^3/uL (0.0-0.7) Basophils # (Auto) 0.0 x10^3/uL (0.0-0.2) Prothrombin Time 31.0 SEC (11.7-14.0) Prothromb Time International Ratio 3.0 (0.8-1.1) Test 08/20/19 11:29 Glucose (Fingerstick) 117 mg/dL (70-99) Results All relevant outside records, renal labs, imaging studies, telemetry/EKG's were reviewed. Justicifation of Admission Dx: Justifications for Admission: Justification of Admission Dx: Yes KADY STEARNS MD Aug 20, 2019 12:35
--- NOTE | 2019-08-20 13:06 | NUR ---
Discharge Note: JORGE ESTRADA Discharge instructions and discharge home medications reviewed with Patient and a copy given. All questions have been answered and understanding verbalized. The following instructions and handouts were given: diet, medications, follow up, chf booklet, return to dialysis tomorrow, see her primary for pain medication. Discontinued lines and drains: IV removed and dialysis port left in place. Patient discharged to home. ambulated to private vehicle and left with family.
[2019-08-21 00:08] LABS: HEMOGLOBIN A1C 6.2 % (4.8-5.6)
[2019-08-26] MEDS ORDERED: HYDR-2869 PO (17:22)
[2019-08-26] MEDS ORDERED: DOCU-153 PO (17:22)
[2019-08-26] MEDS ORDERED: LEVE250T30 PO (17:22)
[2019-08-26] MEDS ORDERED: ONDA4TAB12 PO (17:22)
[2019-08-26] MEDS ORDERED: BISA10SU4 PR (17:22)
[2019-08-26] MEDS ORDERED: ALBU2.5V8 NEB (17:22)
[2019-08-26] MEDS ORDERED: GABA300C18 PO ×2 (17:22)
== END 2019-08-20 13:00 | disposition home or self-care (01) | DRG 291 ==
LOC: ER 02:43 → 2 NORTH 05:29
PROVIDERS: ADMIT Internal Medicine; ATTEND Internal Medicine
PROC: 5A1D70Z Performance of Urinary Filtration, Intermittent, Less than 6 Hours Per Day (ICD-10-PCS; principal; 2019-08-18)
DX: I13.2 Hypertensive heart and chronic kidney disease with heart failure and with stage 5 chronic kidney disease, or end stage renal disease (principal); I50.33 Acute on chronic diastolic (congestive) heart failure; N18.6 End stage renal disease; E21.3 Hyperparathyroidism, unspecified; F32.9 Major depressive disorder, single episode, unspecified; D63.1 Anemia in chronic kidney disease; E11.22 Type 2 diabetes mellitus with diabetic chronic kidney disease; E11.40 Type 2 diabetes mellitus with diabetic neuropathy, unspecified; E78.5 Hyperlipidemia, unspecified; R09.02 Hypoxemia; M54.10 Radiculopathy, site unspecified; E11.21 Type 2 diabetes mellitus with diabetic nephropathy; R56.9 Unspecified convulsions; Z20.828 Contact with and (suspected) exposure to other viral communicable diseases; F41.9 Anxiety disorder, unspecified; I34.0 Nonrheumatic mitral (valve) insufficiency; I70.0 Atherosclerosis of aorta; M10.9 Gout, unspecified; M19.90 Unspecified osteoarthritis, unspecified site; Z82.49 Family history of ischemic heart disease and other diseases of the circulatory system; Z79.82 Long term (current) use of aspirin; Z87.01 Personal history of pneumonia (recurrent); Z87.891 Personal history of nicotine dependence; Z91.15 Patient's noncompliance with renal dialysis; Z98.891 History of uterine scar from previous surgery; Z99.2 Dependence on renal dialysis
CPT/HCPCS: 36415; 71045; 74018; 80053; 81001; 82962; 83036; 83880; 84484; 84550; 85007; 85025; 85610; 86140; 87086; 93005; 96374; 96375; 99285; J1815; J2270; J2405; J2920; J3010; G0378; Q4081; U0003-CS

== ENCOUNTER 2019-08-30 03:26 | Emergency (ER) | payer MEDICARE, OTHER ==
[~2019-08-30] VITALS: Ht 162.6 cm; Wt 75.0 kg
[~2019-08-30 03:26] MED LIST changes: +ALBU2.5V8 NEB; +BISA10SU4 PR; +DOCU-153 PO; +Diclofenac Sodium TP; +GABA300C18 PO; +HYDR-2869 PO; +LEVE250T30 PO; +LUBI24CA7 PO; +ONDA4TAB12 PO
--- NOTE | 2019-08-30 03:38 | PHYS DOC ---
Past Medical History Past Medical History: Anxiety, Arthritis, Depression, Diabetes-Type II, H ypertension, Renal Failure, Other Additional Past Medical Histor: NEUROPATHY Past Surgical History: , Other Additional Past Surgical Histo: kidney biopsy,dialysis cath R chest,UTERINE ABLATION. Smoking Status: Current Every Day Smoker Alcohol Use: None Drug Use: Marijuana General Adult EDM: Chief Complaint: LOWER EXT PAIN HPI: HPI: Patient is a 34 year old female who presents with complaint of left lower leg pain that has been present for over a month now. Patient has been seen numerous times for the same complaint and states that she has never been told what is wrong with her. Patient rates her pain at greater than a 10 out of 10. [] Review of Systems: Review of Systems: Constitutional: Denies fever or chills. [] Respiratory: Denies cough or shortness of breath. [] Cardiovascular: Denies chest pain or edema. [] Musculoskeletal: Complains of left lower leg pain. [] Integument: Denies rash. [] Neurologic: Denies headache, focal weakness or sensory changes. [] Heart Score: Risk Factors: Risk Factors: DM, Current or recent (<one month) smoker, HTN, HLP, family history of CAD, obesity. Risk Scores: Score 0 - 3: 2.5% MACE over next 6 weeks - Discharge Home Score 4 - 6: 20.3% MACE over next 6 weeks - Admit for Clinical Observation Score 7 - 10: 72.7% MACE over next 6 weeks - Early Invasive Strategies Allergies: Allergies: Allergies Coded Allergies Type Severity Reaction Last Updated Verified No Known Drug Allergies 12/05/17 No Physical Exam: PE: Constitutional: Well developed, well nourished, patient's report of pain far exceeds patient's physical findings. [] Cardiovascular: Regular rate and rhythm [] Lungs & Thorax: Bilateral breath sounds clear to auscultation [] Abdomen: Bowel sounds normal, soft. [] Skin: Warm, dry, no erythema, no rash. [] Extremities: No cyanosis, no clubbing, ROM intact, with mild left lower leg edema. [] Neurologic: Alert and oriented X 3, no focal deficits noted. [] EKG: EKG: [] Radiology/Procedures: Radiology/Procedures: [] Course & Med Decision Making: Course & Med Decision Making Pertinent Labs and Imaging studies reviewed. (See chart for details) [] Alana Disclaimer: Dragkrishna Disclaimer: This electronic medical record was generated, in whole or in part, using a voice recognition dictation system. Departure Departure Impression: Primary Impression: Leg pain Qualified Codes: M79.606 - Pain in leg, unspecified Disposition: 07 AGAINST MEDICAL ADVICE Condition: GOOD Referrals: UNKNOWN PCP NAME (PCP) Justicifation of Admission Dx: Justifications for Admission: Justification of Admission Dx: Comment: (Not applicable) CELINA CHARLES Jr. DO Aug 30, 2019 03:38
--- NOTE | 2019-08-30 04:07 | RAD ---
Examination: 2 views of the left tibia and fibula HISTORY: History of leg pain COMPARISON: None available FINDINGS: The alignment of the tibia and fibula grossly appears unremarkable. No acute fracture identified. IMPRESSION: No acute osseous findings. Electronically signed by: Manuel Calderon MD (08/30/2019 4:04 AM) [id number]
[2019-08-30 04:14] LABS: BASO % 0 % (0-3); EOS # 2.2 x10^3/uL (0.0-0.7); EOS % 21 % (0-3); HEMOGLOBIN 7.9 g/dL (12.0-15.5); LYMPH # 1.2 x10^3/uL (1.0-4.8); LYMPH % 12 % (24-48); MEAN CORPUSCULAR HEMOGLOBIN 31 pg (25-35); MEAN CORPUSCULAR HGB CONC 34 g/dL (31-37); MEAN CORPUSCULAR VOLUME 92 fL (79-100); MONO # 1.4 x10^3/uL (0.0-1.1); MONO % 13 % (0-9); NEUT # 5.7 x10^3/uL (1.8-7.7); NEUT % 54 % (31-73); PLATELET COUNT 349 x10^3/uL (140-400); RED BLOOD COUNT 2.52 x10^6/uL (3.50-5.40); RED CELL DISTRIBUTION WIDTH 18.9 % (11.5-14.5); WHITE BLOOD COUNT 10.6 x10^3/uL (4.0-11.0)
[2019-08-30 04:24] VITALS: BP 180/89
[2019-08-30 04:29] LABS: ALBUMIN/GLOBULIN RATIO 0.8 (1.0-1.7); CALCIUM 7.7 mg/dL (8.5-10.1); CREATININE 11.5 mg/dL (0.6-1.0); GFR 4.6; TOTAL BILIRUBIN 0.4 mg/dL (0.2-1.0); URIC ACID 8.2 mg/dL (2.6-6.0)
[2019-08-30 04:31] LABS: POTASSIUM 6.4 mmol/L (3.5-5.1)
[2019-08-30 04:48] LABS: % BANDS 3 % (0-9); % BASOS 1 % (0-3); % EOS 19 % (0-5); % LYMPHS 7 % (24-48); % MONOS 6 % (0-10); % SEGS 64 % (35-66); ANISOCYTOSIS SLIGHT; HYPOCHROMIA SLIGHT; PLT ESTIMATE ADEQUATE (ADEQUATE); POIKILOCYTOSIS SLIGHT
[2019-08-31] MEDS ORDERED: HYDR-3164 PO (11:26)
== END 2019-08-30 04:26 | disposition left against medical advice (07) ==
LOC: ER 03:26
DX: M79.662 Pain in left lower leg (principal); F41.9 Anxiety disorder, unspecified; M19.90 Unspecified osteoarthritis, unspecified site; F32.9 Major depressive disorder, single episode, unspecified; I10 Essential (primary) hypertension; E11.40 Type 2 diabetes mellitus with diabetic neuropathy, unspecified; N19 Unspecified kidney failure; F17.200 Nicotine dependence, unspecified, uncomplicated; F12.90 Cannabis use, unspecified, uncomplicated; Z98.890 Other specified postprocedural states
CPT/HCPCS: 36415; 73590; 80053; 84550; 85007; 85025; 85379; 99284

== ENCOUNTER 2019-08-31 08:32 | Emergency (ER) | payer MEDICARE, OTHER ==
[~2019-08-31] VITALS: Ht 162.6 cm; Wt 63.6 kg
--- NOTE | 2019-08-31 09:18 | PHYS DOC ---
Past Medical History Past Medical History: Anxiety, Arthritis, Depression, Diabetes-Type II, H ypertension, Renal Failure, Other Additional Past Medical Histor: NEUROPATHY Past Surgical History: , Other Additional Past Surgical Histo: kidney biopsy,dialysis cath R chest,UTERINE ABLATION. Smoking Status: Current Every Day Smoker Alcohol Use: None Drug Use: Marijuana Social History Narrative: Last marijuana use 3 days ago General Adult EDM: Chief Complaint: LOWER EXT PAIN HPI: HPI: Patient is a 34 year old male who presented to ER today for evaluation of left ankle pain for about a month. Patient denies any injury. Patient has been evaluated here multiple times in the past for the same problem, she was diagnosed with gout, she was put on medication. Patient said when she finished with the medication the pain started coming back. Patient denies any fever, no chest pain, no trouble breathing. Patient has history of end-stage renal failure, on hemodialysis, history of diabetes. Review of Systems: Review of Systems: Constitutional: Denies fever or chills. [] Eyes: Denies change in visual acuity. [] HENT: Denies nasal congestion or sore throat. [] Respiratory: Denies cough or shortness of breath. [] Cardiovascular: Denies chest pain or edema. [] GI: Denies abdominal pain, nausea, vomiting, bloody stools or diarrhea. [] : Denies dysuria. [] Musculoskeletal: Positive for left ankle pain and swelling Integument: Denies rash. [] Neurologic: Denies headache, focal weakness or sensory changes. [] Endocrine: Denies polyuria or polydipsia. [] Lymphatic: Denies swollen glands. [] Psychiatric: Denies depression or anxiety. [] Heart Score: Risk Factors: Risk Factors: DM, Current or recent (<one month) smoker, HTN, HLP, family history of CAD, obesity. Risk Scores: Score 0 - 3: 2.5% MACE over next 6 weeks - Discharge Home Score 4 - 6: 20.3% MACE over next 6 weeks - Admit for Clinical Observation Score 7 - 10: 72.7% MACE over next 6 weeks - Early Invasive Strategies Allergies: Allergies: Allergies Coded Allergies Type Severity Reaction Last Updated Verified No Known Drug Allergies 12/05/17 No Physical Exam: PE: Constitutional: Well developed, well nourished, no acute distress, non-toxic appearance. [] HENT: Normocephalic, atraumatic, Eyes: PERRLA, EOMI, c Neck: Normal range of motion, no tenderness, supple, no stridor. [] Cardiovascular:Heart rate regular rhythm, no murmur [] Lungs & Thorax: Bilateral breath sounds clear to auscultation [] Abdomen: Bowel sounds normal, soft, no tenderness, no masses, no pulsatile masses. [] Skin: Warm, dry, no erythema, no rash. [] Back: No tenderness, no CVA tenderness. [] Extremities left ankle is swollen, tender to touch, warm to touch, no erythema Neurologic: Alert and oriented X 3, normal motor function, normal sensory function, no focal deficits noted. [] Psychologic: Affect normal, judgement normal, mood normal. [] Current Patient Data: Vital Signs: Vital Signs Date Time Temp Pulse Resp B/P (MAP) Pulse Ox O2 Delivery O2 Flow Rate FiO2 08/31/19 08:32 98.2 90 17 173/83 (113) 100 Room Air 98.2 EKG: EKG: [] Radiology/Procedures: Radiology/Procedures: [] Course & Med Decision Making: Course & Med Decision Making Pertinent Labs and Imaging studies reviewed. (See chart for details) [] Dragon Disclaimer: Kaleio Disclaimer: This electronic medical record was generated, in whole or in part, using a voice recognition dictation system. Departure Departure Impression: Primary Impression: Ankle pain, left Disposition: HOME, SELF-CARE Condition: STABLE Referrals: UNKNOWN PCP NAME (PCP) PLEASE FOLLOW UP WITH YOUR DOCTOR FOR OUTPATIENT EVALUATION FOR YOUR CHRONIC ANKLE PAIN. Patient Instructions: Ankle Pain Additional Instructions: Please follow-up with your family doctor for evaluation of your left ankle problem. Scripts Hydrocodone/Apap 5-325 (NORCO 5-325 TABLET) 1 Each Tablet 1 TAB PO PRN Q6HRS PRN for PAIN, #8 TAB 0 Refills Prov: SEBASTIÁN DAMIAN DO 08/31/19 Justicifation of Admission Dx: Justifications for Admission: Justification of Admission Dx: Comment: SEBASTIÁN DAMIAN DO Aug 31, 2019 09:18
[2019-08-31] MEDS ORDERED: HYDROcodone/APAP 10/325 1 TAB TABLET PO ONE (09:45)
[2019-08-31] MEDS ORDERED: predniSONE 20 MG TABLET PO ONE (09:45)
[2019-08-31] MEDS ORDERED: HYDR-3164 PO (11:26)
[2019-08-31 11:34] VITALS: BP 170/83
== END 2019-08-31 12:05 | disposition home or self-care (01) ==
LOC: ER 08:32
DX: M25.572 Pain in left ankle and joints of left foot (principal); R60.0 Localized edema; F41.9 Anxiety disorder, unspecified; M19.90 Unspecified osteoarthritis, unspecified site; F32.9 Major depressive disorder, single episode, unspecified; E11.22 Type 2 diabetes mellitus with diabetic chronic kidney disease; I12.9 Hypertensive chronic kidney disease with stage 1 through stage 4 chronic kidney disease, or unspecified chronic kidney disease; N18.9 Chronic kidney disease, unspecified; F17.200 Nicotine dependence, unspecified, uncomplicated; F12.90 Cannabis use, unspecified, uncomplicated; Z98.890 Other specified postprocedural states
CPT/HCPCS: 36415; 84550; 99285; J7512

== ENCOUNTER 2019-09-24 21:09 | Inpatient (IN) | payer MEDICARE, OTHER ==
[~2019-09-24] VITALS: Ht 162.6 cm; Wt 66.1 kg
--- NOTE | 2019-09-24 21:26 | PHYS DOC ---
Past Medical History Past Medical History: Anxiety, Arthritis, Depression, Diabetes-Type II, H ypertension, Renal Failure, Other Additional Past Medical Histor: NEUROPATHY Past Surgical History: , Other Additional Past Surgical Histo: kidney biopsy,dialysis cath R chest,UTERINE ABLATION. Smoking Status: Current Every Day Smoker Alcohol Use: None Drug Use: Marijuana General Adult EDM: Chief Complaint: SHORTNESS OF BREATH HPI: HPI: Patient is a 34 year old female who presents with shortness of breath. Patient missed her dialysis on Tuesday and has had 2 days of shortness of breath. Patient denies any fever or cough. Patient does complain of diffuse body pain. She is not been vomiting. Patient denies any COVID exposures. History and physical is limited due to respiratory distress Review of Systems: Review of Systems: Constitutional: Denies fever or chills. [] Eyes: Denies change in visual acuity. [] HENT: Denies nasal congestion or sore throat. [] Respiratory: Denies cough but complains of shortness of breath Cardiovascular: Complains of chest discomfort and swelling to the legs left greater than right GI: Denies abdominal pain, nausea, vomiting, bloody stools or diarrhea. [] : Denies dysuria. [] Musculoskeletal: Complains of diffuse myalgias Integument: Denies rash. [] Neurologic: Denies headache, focal weakness or sensory changes. [] Endocrine: Denies polyuria or polydipsia. [] Lymphatic: Denies swollen glands. [] Psychiatric: Denies depression or anxiety. [] Heart Score: HEART Score for Chest Pain: HEART Score for Chest Pain Response (Comments) Value History Slighlty/Non-Suspicious 0 ECG Normal 0 Age < 45 0 Risk Factors >3 Risk Factors or Hx CAD 2 Troponin < Normal Limit 0 Total 2 Risk Factors: Risk Factors: DM, Current or recent (<one month) smoker, HTN, HLP, family history of CAD, obesity. Risk Scores: Score 0 - 3: 2.5% MACE over next 6 weeks - Discharge Home Score 4 - 6: 20.3% MACE over next 6 weeks - Admit for Clinical Observation Score 7 - 10: 72.7% MACE over next 6 weeks - Early Invasive Strategies Current Medications: Current Medications Medications (Trade) Dose Ordered Sig/Mary Kay Start Time Stop Time Status Last Admin Dose Admin Nitroglycerin (Nitro-Bid Oint) 1 inch 1X ONCE 09/24/19 21:30 09/24/19 21:31 UNV Allergies: Allergies: Allergies Coded Allergies Type Severity Reaction Last Updated Verified No Known Drug Allergies 12/05/17 No Physical Exam: PE: Constitutional: Well developed, well nourished, moderate respiratory distress HENT: Normocephalic, atraumatic, bilateral external ears normal, , nose normal. [] Eyes: PERRLA, EOMI, conjunctiva normal, no discharge. [] Neck: Normal range of motion, no tenderness, supple, no stridor. [] Cardiovascular tachycardic with peripheral pulses intact Lungs & Thorax: Diminished breath sounds and tachypnea Abdomen: Bowel sounds normal, soft, no tenderness, no masses, no pulsatile masses. [] Skin: Warm, dry, no erythema, no rash. [] Back: No tenderness, no CVA tenderness. [] Extremities: Swelling to bilateral lower extremities left greater than right Neurologic: Alert and oriented X 3, normal motor function, normal sensory function, no focal deficits noted. [] Psychologic: Affect normal, judgement normal, mood normal. [] Current Patient Data: Labs: Laboratory Tests Test 09/24/19 21:20 09/24/19 21:50 09/24/19 22:27 White Blood Count 16.5 x10^3/uL Red Blood Count 2.83 x10^6/uL Hemoglobin 8.7 g/dL Hematocrit 26.1 % Mean Corpuscular Volume 92 fL Mean Corpuscular Hemoglobin 31 pg Mean Corpuscular Hemoglobin Concent 33 g/dL Red Cell Distribution Width 21.2 % Platelet Count 492 x10^3/uL Neutrophils (%) (Auto) 69 % Lymphocytes (%) (Auto) 7 % Monocytes (%) (Auto) 7 % Eosinophils (%) (Auto) 17 % Basophils (%) (Auto) 1 % Neutrophils # (Auto) 11.4 x10^3/uL Lymphocytes # (Auto) 1.1 x10^3/uL Monocytes # (Auto) 1.1 x10^3/uL Eosinophils # (Auto) 2.8 x10^3/uL Basophils # (Auto) 0.1 x10^3/uL Segmented Neutrophils % 73 % Band Neutrophils % 2 % Lymphocytes % 3 % Monocytes % 3 % Eosinophils % 19 % Platelet Estimate Increased Macrocytosis Slight Sodium Level 139 mmol/L Potassium Level 5.8 mmol/L Chloride Level 98 mmol/L Carbon Dioxide Level 25 mmol/L Anion Gap 16 Blood Urea Nitrogen 67 mg/dL Creatinine 10.9 mg/dL Estimated GFR (Cockcroft-Gault) 4.9 BUN/Creatinine Ratio 6 Glucose Level 159 mg/dL Calcium Level 7.9 mg/dL Total Bilirubin 0.4 mg/dL Aspartate Amino Transf (AST/SGOT) 17 U/L Alanine Aminotransferase (ALT/SGPT) 20 U/L Alkaline Phosphatase 157 U/L Troponin I Quantitative 0.023 ng/mL [id number] Natriuretic Peptide > 66614 pg/mL Total Protein 7.4 g/dL Albumin 3.3 g/dL Albumin/Globulin Ratio 0.8 O2 Saturation 96 % Arterial Blood pH 7.37 Arterial Blood pCO2 at Patient Temp 42 mmHg Arterial Blood pO2 at Patient Temp 102 mmHg Arterial Blood HCO3 24 mmol/L Arterial Blood Base Excess -1 mmol/L Oxyhemoglobin 94.0 % Methemoglobin 0.2 % Carbon Monoxide, Quantitative 2.2 % FiO2 50 Current Medications Medications (Trade) Dose Ordered Sig/Mary Kay Route PRN Reason Start Time Stop Time Status Last Admin Dose Admin Nitroglycerin (Nitro-Bid Oint) 1 inch 1X ONCE TP 09/24/19 22:00 09/24/19 22:01 DC 09/24/19 22:19 Morphine Sulfate (Morphine Sulfate) 4 mg 1X ONCE IV 09/24/19 22:00 09/24/19 22:01 DC 09/24/19 22:19 Lorazepam (Ativan Inj) 1 mg 1X ONCE IVP 09/24/19 23:00 09/24/19 23:04 DC 09/24/19 23:12 Amlodipine Besylate (Norvasc) 10 mg DAILY PO 09/25/19 09:00 Aspirin (Aspirin Chewable) 81 mg DAILY PO 09/25/19 09:00 Bisacodyl (Dulcolax Supp) 10 mg PRN DAILY PRN DE CONSTIPATION 09/24/19 23:00 Docusate Sodium (Colace) 100 mg PRN BID PRN PO HARD STOOLS 09/24/19 23:00 Vitamin B Complex/ Vitamin C (Wendy-Marvin) 1 tab DAILY PO 09/25/19 09:00 Hydralazine HCl (Apresoline) 75 mg BID PO 09/25/19 09:00 Acetaminophen/ Hydrocodone Bitart (Lortab 5/325) 1 tab PRN Q6HRS PRN PO MODERATE PAIN 4-6 09/24/19 23:00 Levetiracetam (Keppra) 375 mg BID PO 09/25/19 09:00 Lubiprostone (Amitiza) 24 mcg BIDWMEALS PO 09/25/19 08:00 Ondansetron HCl (Zofran Odt) 4 mg PRN Q6HRS PRN PO NAUSEA/VOMITING 1ST CHOICE 09/24/19 23:00 Sevelamer Carbonate (Renvela) 800 mg TIDWMEALS PO 09/25/19 08:00 Warfarin Sodium (Coumadin) 4 mg DAILY PO 09/25/19 09:00 UNV Carvedilol (Coreg) 25 mg BIDWMEALS PO 09/25/19 08:00 Pantoprazole Sodium (Protonix) 40 mg DAILYAC PO 09/25/19 07:30 Diclofenac Sodium (Voltaren) 1 sheldon BID TP 09/25/19 09:00 Warfarin Sodium (Coumadin Per Physician) 1 each PRN DAILY PRN MC SEE COMMENTS 09/24/19 23:15 Ondansetron HCl (Zofran) 4 mg PRN Q8HRS PRN IV NAUSEA/VOMITING 1ST CHOICE 09/24/19 23:15 09/25/19 23:14 EKG: EKG: [] EKG interpreted by me sinus tach with a rate of 122. Normal axis normal intervals nonspecific ST changes Radiology/Procedures: Radiology/Procedures: [][facility] [address] [place] [address] IMAGING REPORT Signed PATIENT: JORGE ESTRADAUNT: [id number] : 1985 LOCATION: ER AGE: 34 SEX: F EXAM STATUS: PRE ER ORD. PHYSICIAN: EVARISTO CHEUNG MD REASON: soa, missed dialysis PROCEDURE: PORTABLE CHEST 1V EXAM: AP View of the chest DATE: 09/24/2019 9:19 PM INDICATION: Shortness of air, missed analysis COMPARISON: 08/24/2019, 08/18/2019 FINDINGS: Heart is moderately enlarged. Right IJ vas or catheter tip projects over the mid SVC. Mediastinal and hilar contours are stable. Small right pleural effusion is stable. However right lung base and perihilar opacities have mildly progressed compared to 08/24/2019. No pneumothorax. IMPRESSION: Cardiomegaly with bilateral parenchymal opacities and right pleural effusion is represent pulmonary edema. Superimposed consolidation/atelectasis may also have this appearance. Electronically signed by: Tk Michael MD (09/24/2019 9:50 PM) [facility] DICTATED and SIGNED BY: TK MICHAEL MD DATE: 09/24/192149 Course & Med Decision Making: Course & Med Decision Making Pertinent Labs and Imaging studies reviewed. (See chart for details) [] 34-year-old female presents with respiratory failure. Patient missed her dialysis on Tuesday and is volume overloaded on x-ray. Patient started on BiPAP and her hypertension was treated with nitroglycerin. Patient was given morphine for her air hunger as well as Ativan for her anxiety. Patient significantly proved on reassessment. Her respiratory rate decreased. Her work of breathing decreased. Potassium slightly elevated 5.8. Patient will be admitted to the ICU for respiratory failure, volume overload. Patient will be consulted with nephrology. I spoke with Dr. Horta who admit and Dr. Bernstein who will consult Critical condition: Respiratory failure, accelerated hypertension, volume overload, hyperkalemia Critical interventions, BiPAP, nitroglycerin, hyperkalemia treatment, admission to the ICU with consults with nephrology. Alana Disclaimer: Alana Disclaimer: This electronic medical record was generated, in whole or in part, using a voice recognition dictation system. Departure Departure Impression: Primary Impression: Respiratory failure Additional Impressions: Volume overload ESRD (end stage renal disease) on dialysis Hyperkalemia Disposition: ADMITTED INPATIENT Admitting Physician: ELIZABETH cheney) Condition: CRITICAL Referrals: UNKNOWN PCP NAME (PCP) Justicifation of Admission Dx: Justifications for Admission: Justification of Admission Dx: Yes EVARISTO CHEUNG MD Sep 24, 2019 21:26
[2019-09-24 21:33] LABS: BASO # 0.1 x10^3/uL (0.0-0.2); BASO % 1 % (0-3); EOS # 2.8 x10^3/uL (0.0-0.7); EOS % 17 % (0-3); HEMATOCRIT 26.1 % (36.0-47.0); HEMOGLOBIN 8.7 g/dL (12.0-15.5); LYMPH # 1.1 x10^3/uL (1.0-4.8); LYMPH % 7 % (24-48); MEAN CORPUSCULAR HEMOGLOBIN 31 pg (25-35); MEAN CORPUSCULAR HGB CONC 33 g/dL (31-37); MEAN CORPUSCULAR VOLUME 92 fL (79-100); MONO # 1.1 x10^3/uL (0.0-1.1); MONO % 7 % (0-9); NEUT # 11.4 x10^3/uL (1.8-7.7); NEUT % 69 % (31-73); PLATELET COUNT 492 x10^3/uL (140-400); RED BLOOD COUNT 2.83 x10^6/uL (3.50-5.40); RED CELL DISTRIBUTION WIDTH 21.2 % (11.5-14.5); WHITE BLOOD COUNT 16.5 x10^3/uL (4.0-11.0)
--- NOTE | 2019-09-24 21:52 | RAD ---
EXAM: AP View of the chest DATE: 09/24/2019 9:19 PM INDICATION: Shortness of air, missed analysis COMPARISON: 08/24/2019, 08/18/2019 FINDINGS: Heart is moderately enlarged. Right IJ vas or catheter tip projects over the mid SVC. Mediastinal and hilar contours are stable. Small right pleural effusion is stable. However right lung base and perihilar opacities have mildly progressed compared to 08/24/2019. No pneumothorax. IMPRESSION: Cardiomegaly with bilateral parenchymal opacities and right pleural effusion is represent pulmonary edema. Superimposed consolidation/atelectasis may also have this appearance. Electronically signed by: Tk Santiago MD (09/24/2019 9:50 PM) TIM
[2019-09-24] MEDS ORDERED: NITROGLYCERIN OINT 1 GM PACKET. TP ONE (22:00)
[2019-09-24] MEDS ORDERED: MORPHINE SULFATE 4 MG/ML VIAL. IV ONE (22:00)
[2019-09-24 22:05] LABS: % BANDS 2 % (0-9); % EOS 19 % (0-5); % LYMPHS 3 % (24-48); % MONOS 3 % (0-10); % SEGS 73 % (35-66); PLT ESTIMATE INCREASED (ADEQUATE)
[2019-09-24 22:27] LABS: BASE EXCESS COOX -1 mmol/L (-3-3); HCO3 COOX 24 mmol/L (21-28); METHEMOGLOBIN 0.2 % (0.0-1.9); PCO2 COOX 42 mmHg (35-46); PO2 COOX 102 mmHg (85-108); SAT O2 COOX 96 % (92-99)
[2019-09-24 22:47] LABS: CALCIUM 7.9 mg/dL (8.5-10.1); CREATININE 10.9 mg/dL (0.6-1.0); GFR 4.9; POTASSIUM 5.8 mmol/L (3.5-5.1)
[2019-09-24 22:54] LABS: ALBUMIN 3.3 g/dL (3.4-5.0); ALBUMIN/GLOBULIN RATIO 0.8 (1.0-1.7); TOTAL BILIRUBIN 0.4 mg/dL (0.2-1.0); TOTAL PROTEIN 7.4 g/dL (6.4-8.2)
[2019-09-24] MEDS ORDERED: DOCUSATE SODIUM 100 MG CAPSULE. PO PRN (23:00)
[2019-09-24] MEDS ORDERED: BISACODYL 10 MG SUPP.RECT. PR PRN (23:00)
[2019-09-24] MEDS ORDERED: ONDANSETRON PF 4 MG/2 ML VIAL. IV PRN (23:15)
[2019-09-25] VITALS (16 sets, daily range): BP systolic 129–201; BP diastolic 71–102
[2019-09-25] MEDS ORDERED: DEXTROSE 50% 25 GM / 50ML DISP.SYRIN. IV ONE (00:30)
[2019-09-25] MEDS ORDERED: INSULIN REGULAR 100 UNIT/ML 3ML VIAL. IV ONE (00:30)
[2019-09-25] MEDS ORDERED: CALCIUM GLUCONATE 1,000 MG in IV NORMAL SALINE 100ML 100 ML IV ONE (00:30)
--- NOTE | 2019-09-25 04:31 | EKG ---
[facility] [address] [place] [address] Test Date: 2019-09-24 Test Time: 21:22:53 Pat Name: JORGE ESTRADA Department: Room: Gender: F [employer]: : 1985 Requested By: EVARISTO CHEUNG Order Number: [id number] Reading MD: Measurements Intervals [place] Rate: 122 P: 26 AR: 122 QRS: 49 QRSD: 80 T: 69 QT: 316 QTc: 451 Interpretive Statements SINUS TACHYCARDIA LEFT ATRIAL ABNORMALITY QRS(T) CONTOUR ABNORMALITY CONSIDER INFERIOR MYOCARDIAL DAMAGE ABNORMAL ECG RI6.02 No previous ECG available for comparison
[2019-09-25] MEDS: HYDROcodone/APAP 5/325MG 1 TAB TABLET PO PRN ×3 (05:26→22:09)
[2019-09-25] MEDS ORDERED: LABETALOL 20 MG/4 ML DISP.SYRIN. IVP PRN (06:00)
--- NOTE | 2019-09-25 06:00 | NUR ---
Pt admitted to room 113, moved to bed, placed on ICU monitors. She is able to answer admission questions, history pulled over from previous recent admission. Patient oxygen saturation in 90s on a few liters NC. Patient requested to have bipap back on, O2 saturation at 100%. PRISCILLA fistula noted. Pt SBP high at >200 and DBP >100. Pt says she "hurts all over." Hydrocodone administered. Paged Dr. Marie for additional orders. Received orders for labs, BP med control, and diet.
[2019-09-25] MEDS: DICLOFENAC SODIUM 1% TOPICAL GEL 100GM TUBE. TP SCH ×2 (08:26→20:41)
[2019-09-25] MEDS: levETIRAcetam 250 MG TABLET PO SCH ×2 (08:26→20:41)
[2019-09-25] MEDS: CARVEDILOL 12.5 MG TABLET. PO SCH ×2 (08:27→17:39)
[2019-09-25] MEDS: FOLIC/VIT B COMP W-C (RENAL) TABLET. PO SCH (08:27)
[2019-09-25] MEDS: amLODIPine BESYLATE 10 MG TABLET PO SCH (08:27)
[2019-09-25] MEDS: hydrALAZINE 25 MG TABLET PO SCH ×2 (08:28→20:41)
[2019-09-25] MEDS: SEVELAMER CARBONATE 800 MG TABLET. PO SCH ×3 (08:28→17:38)
[2019-09-25] MEDS: ASPIRIN CHEWABLE 81 MG TABLET. PO SCH (08:28)
[2019-09-25] MEDS: PANTOPRAZOLE 40 MG TABLET.DR. PO SCH (08:28)
[2019-09-25] MEDS ORDERED: WARFARIN 4 MG TABLET. PO SCH (09:00)
[2019-09-25 10:18] LABS: BASO # 0.1 x10^3/uL (0.0-0.2); BASO % 1 % (0-3); EOS # 1.5 x10^3/uL (0.0-0.7); EOS % 15 % (0-3); HEMATOCRIT 21.7 % (36.0-47.0); HEMOGLOBIN 7.1 g/dL (12.0-15.5); LYMPH # 1.2 x10^3/uL (1.0-4.8); LYMPH % 12 % (24-48); MEAN CORPUSCULAR HEMOGLOBIN 31 pg (25-35); MEAN CORPUSCULAR HGB CONC 33 g/dL (31-37); MEAN CORPUSCULAR VOLUME 94 fL (79-100); MONO # 0.9 x10^3/uL (0.0-1.1); MONO % 9 % (0-9); NEUT # 6.4 x10^3/uL (1.8-7.7); NEUT % 63 % (31-73); PLATELET COUNT 380 x10^3/uL (140-400); RED BLOOD COUNT 2.32 x10^6/uL (3.50-5.40); RED CELL DISTRIBUTION WIDTH 21.3 % (11.5-14.5); WHITE BLOOD COUNT 10.1 x10^3/uL (4.0-11.0)
[2019-09-25 10:26] LABS: CALCIUM 7.8 mg/dL (8.5-10.1); CREATININE 11.5 mg/dL (0.6-1.0); GFR 4.6
[2019-09-25 10:27] LABS: PROTHROMBIN TIME PATIENT 38.2 SEC (11.7-14.0)
[2019-09-25] MEDS: LUBIPROSTONE 24 MCG CAPSULE PO SCH ×2 (10:28→17:38)
[2019-09-25 10:30] LABS: POTASSIUM 6.3 mmol/L (3.5-5.1)
--- NOTE | 2019-09-25 11:24 | PDOC2 ---
CONSULT Date of Consult Date of Consult DATE: 09/25/19 TIME: 11:20 Reason for Consult Reason for Consult: CHF AND ESRD Referring Physician Referring Physician: KAMILAH Identification/Chief Complaint Chief Complaint SOB Source Source: Chart review History of Present Illness Reason for Visit: THIS IS A 34 YR OLD WITH ESRD DUE TO DM AND HTN. NON COMPLIANT AND REGULARLY SKIPS HER HD TREATMENT. CAME IN SOB AND FAILURE. MISSED HER LAST HD TX. CURRENTLY IN MODERATE DISTRESS AND ON BIPAP. LABS ARE C/W ESRD. WBC WAS UP ON ADMIT AND TODAY IMPROVED Past Medical History Cardiovascular: HTN Heme/Onc: Other Psych: Anxiety Renal/: Chronic renal failure Endocrine: Diabetes, Hyperparathyroidism Past Surgical History Past Surgical History: , Other Family History Family History: Hypertension Social History Drugs: Marijuana Current Problem List Problem List Problems Medical Problems: (1) Respiratory failure Status: Acute Current Medications Current Medications Current Medications Nitroglycerin (Nitro-Bid Oint) 1 inch 1X ONCE TP Last administered on 09/24/19at 22:19; Start 09/24/19 at 22:00; Stop 09/24/19 at 22:01; Status DC Morphine Sulfate (Morphine Sulfate) 4 mg 1X ONCE IV Last administered on 09/24/19at 22:19; Start 09/24/19 at 22:00; Stop 09/24/19 at 22:01; Status DC Lorazepam (Ativan Inj) 1 mg 1X ONCE IVP Last administered on 09/24/19at 23:12; Start 09/24/19 at 23:00; Stop 09/24/19 at 23:04; Status DC Amlodipine Besylate (Norvasc) 10 mg DAILY PO Last administered on 09/25/19at 08:27; Start 09/25/19 at 09:00 Aspirin (Aspirin Chewable) 81 mg DAILY PO Last administered on 09/25/19at 08:28; Start 09/25/19 at 09:00 Bisacodyl (Dulcolax Supp) 10 mg PRN DAILY PRN DC CONSTIPATION; Start 09/24/19 at 23:00 Docusate Sodium (Colace) 100 mg PRN BID PRN PO HARD STOOLS; Start 09/24/19 at 23:00 Vitamin B Complex/ Vitamin C (Wendy-Marvin) 1 tab DAILY PO Last administered on 09/25/19at 08:27; Start 09/25/19 at 09:00 Hydralazine HCl (Apresoline) 75 mg BID PO Last administered on 09/25/19 08:28; Start 09/25/19 at 09:00 Acetaminophen/ Hydrocodone Bitart (Lortab 5/325) 1 tab PRN Q6HRS PRN PO MODERATE PAIN 4-6 Last administered on 09/25/19 05:26; Start 09/24/19 at 23:00 Levetiracetam (Keppra) 375 mg BID PO Last administered on 09/25/19at 08:26; Start 09/25/19 at 09:00 Lubiprostone (Amitiza) 24 mcg BIDWMEALS PO Last administered on 09/25/19at 10:28; Start 09/25/19 at 08:00 Ondansetron HCl (Zofran Odt) 4 mg PRN Q6HRS PRN PO NAUSEA/VOMITING 1ST CHOICE; Start 09/24/19 at 23:00 Sevelamer Carbonate (Renvela) 800 mg TIDWMEALS PO Last administered on 09/25/19at 08:28; Start 09/25/19 at 08:00 Warfarin Sodium (Coumadin) 4 mg DAILY PO ; Start 09/25/19 at 09:00; Status UNV Carvedilol (Coreg) 25 mg BIDWMEALS PO Last administered on 09/25/19at 08:27; Start 09/25/19 at 08:00 Pantoprazole Sodium (Protonix) 40 mg DAILYAC PO Last administered on 09/25/19at 08:28; Start 09/25/19 at 07:30 Diclofenac Sodium (Voltaren) 1 day BID TP Last administered on 09/25/19at 08:26; Start 09/25/19 at 09:00 Warfarin Sodium (Coumadin Per Physician) 1 each PRN DAILY PRN MC SEE COMMENTS; Start 09/24/19 at 23:15 Ondansetron HCl (Zofran) 4 mg PRN Q8HRS PRN IV NAUSEA/VOMITING 1ST CHOICE; Start 09/24/19 at 23:15; Stop 09/25/19 at 23:14 Insulin Human Regular (HumuLIN R VIAL) 10 unit 1X ONCE IV Last administered on 09/25/19at 01:06; Start 09/25/19 at 00:30; Stop 09/25/19 at 00:31; Status DC Dextrose (Dextrose 50%-Water Syringe) 25 gm 1X ONCE IV Last administered on 09/25/19at 01:02; Start 09/25/19 at 00:30; Stop 09/25/19 at 00:31; Status DC Calcium Gluconate 1000 mg/Sodium Chloride 110 ml @ 220 mls/hr 1X ONCE IV Last administered on 09/25/19at 01:02; Start 09/25/19 at 00:30; Stop 09/25/19 at 00:59; Status DC Labetalol HCl (Normodyne Iv Push) 10 mg PRN Q2HR PRN IVP HYPERTENSION Last administered on 09/25/19at 06:01; Start 09/25/19 at 06:00 Warfarin Sodium (Coumadin) 4 mg DAILY16 PO ; Start 09/26/19 at 16:00 Warfarin Sodium (Coumadin - No Dose Today) 1 each 1X WARF ONCE MC ; Start 09/25/19 at 16:00; Stop 09/25/19 at 16:01 Active Scripts Active Mcfarland 5-325 Tablet (Acetaminophen/Hydrocodone Bitart) 1 Each Tablet 1 Tab PO PRN Q6HRS PRN Ondansetron Odt (Ondansetron) 4 Mg Tab.rapdis 4 Mg PO PRN Q6HRS PRN 14 Days Dok (Docusate Sodium) 100 Mg Capsule 100 Mg PO PRN BID PRN 30 Days Bisacodyl 10 Mg Supp.rect 10 Mg DC PRN DAILY PRN 14 Days Gabapentin 300 Mg Capsule 300 Mg PO DAILY08 30 Days Keppra (Levetiracetam) 250 Mg Tablet 375 Mg PO BID 30 Days Gabapentin 300 Mg Capsule 600 Mg PO HS 30 Days Hydralazine Hcl 50 Mg Tablet 75 Mg PO BID 30 Days Proair Hfa (Albuterol Sulfate) 8.5 Gm Hfa.aer.ad 2.5 Mg NEB PRN Q4HRS PRN 14 Days Amitiza (Lubiprostone) 24 Mcg Capsule 24 Mcg PO BIDWMEALS 30 Days [Diclofenac Sodium] 100 GM Gel..gram. 1 Day TP BID 30 Days Reported Coumadin (Warfarin Sodium) 4 Mg Tablet 1 Tab PO DAILY Renvela (Sevelamer Carbonate) 800 Mg Tablet 1 Tab PO TID 30 Days Wendy-Marvin Tablet (Folic Acid/Vitamin B Comp W-C) 0.8 Mg Tablet 1 Tab PO DAILY 30 Days Protonix (Pantoprazole Sodium) 20 Mg Tablet.dr 2 Tab PO DAILY Carvedilol 25 Mg Tablet 25 Mg PO BIDWMEALS Aspirin 81 Mg Tab.chew 1 Tab PO DAILY Amitriptyline Hcl 75 Mg Tablet 1 Tab PO QHS Amlodipine Besylate 10 Mg Tablet 10 Mg PO DAILY Allergies Allergies: Coded Allergies: No Known Drug Allergies (Unverified , 12/05/17) ROS Review of System UNABLE TO OBTAIN DUE TO DISTRESS Physical Exam General: Alert, Oriented X3, Cooperative, moderate distress HEENT: Atraumatic, PERRLA Lungs: Other (BASILAR RALES) Heart: Regular rate Abdomen: Normal bowel sounds, Soft, No tenderness Extremities: No clubbing, No cyanosis Skin: No breakdown Neuro: Other (ANXIOUS) Psych/Mental Status: Other (ANXIOUS) MUSCULOSKELETAL: No deformity Vitals VITALS Vital Signs Date Time Temp Pulse Resp B/P (MAP) Pulse Ox O2 Delivery O2 Flow Rate FiO2 09/25/19 11:00 79 24 156/81 (106) 98 BiPAP/CPAP 09/25/19 10:00 2.0 09/25/19 08:00 98.0 98.0 Labs Labs Laboratory Tests Test 09/24/19 21:20 09/24/19 21:50 09/24/19 22:27 09/25/19 09:55 White Blood Count 16.5 x10^3/uL (4.0-11.0) 10.1 x10^3/uL (4.0-11.0) Red Blood Count 2.83 x10^6/uL (3.50-5.40) 2.32 x10^6/uL (3.50-5.40) Hemoglobin 8.7 g/dL (12.0-15.5) 7.1 g/dL (12.0-15.5) Hematocrit 26.1 % (36.0-47.0) 21.7 % (36.0-47.0) Mean Corpuscular Volume 92 fL (79-100) 94 fL (79-100) Mean Corpuscular Hemoglobin 31 pg (25-35) 31 pg (25-35) Mean Corpuscular Hemoglobin Concent 33 g/dL (31-37) 33 g/dL (31-37) Red Cell Distribution Width 21.2 % (11.5-14.5) 21.3 % (11.5-14.5) Platelet Count 492 x10^3/uL (140-400) 380 x10^3/uL (140-400) Neutrophils (%) (Auto) 69 % (31-73) 63 % (31-73) Lymphocytes (%) (Auto) 7 % (24-48) 12 % (24-48) Monocytes (%) (Auto) 7 % (0-9) 9 % (0-9) Eosinophils (%) (Auto) 17 % (0-3) 15 % (0-3) Basophils (%) (Auto) 1 % (0-3) 1 % (0-3) Neutrophils # (Auto) 11.4 x10^3/uL (1.8-7.7) 6.4 x10^3/uL (1.8-7.7) Lymphocytes # (Auto) 1.1 x10^3/uL (1.0-4.8) 1.2 x10^3/uL (1.0-4.8) Monocytes # (Auto) 1.1 x10^3/uL (0.0-1.1) 0.9 x10^3/uL (0.0-1.1) Eosinophils # (Auto) 2.8 x10^3/uL (0.0-0.7) 1.5 x10^3/uL (0.0-0.7) Basophils # (Auto) 0.1 x10^3/uL (0.0-0.2) 0.1 x10^3/uL (0.0-0.2) Segmented Neutrophils % 73 % (35-66) Band Neutrophils % 2 % (0-9) Lymphocytes % 3 % (24-48) Monocytes % 3 % (0-10) Eosinophils % 19 % (0-5) Platelet Estimate Increased (ADEQUATE) Macrocytosis Slight Sodium Level 139 mmol/L (136-145) 139 mmol/L (136-145) Potassium Level 5.8 mmol/L (3.5-5.1) 6.3 mmol/L (3.5-5.1) Chloride Level 98 mmol/L (98-107) 99 mmol/L (98-107) Carbon Dioxide Level 25 mmol/L (21-32) 24 mmol/L (21-32) Anion Gap 16 (6-14) 16 (6-14) Blood Urea Nitrogen 67 mg/dL (7-20) 80 mg/dL (7-20) Creatinine 10.9 mg/dL (0.6-1.0) 11.5 mg/dL (0.6-1.0) Estimated GFR (Cockcroft-Gault) 4.9 4.6 BUN/Creatinine Ratio 6 (6-20) Glucose Level 159 mg/dL (70-99) 74 mg/dL (70-99) Calcium Level 7.9 mg/dL (8.5-10.1) 7.8 mg/dL (8.5-10.1) Total Bilirubin 0.4 mg/dL (0.2-1.0) Aspartate Amino Transf (AST/SGOT) 17 U/L (15-37) Alanine Aminotransferase (ALT/SGPT) 20 U/L (14-59) Alkaline Phosphatase 157 U/L (46-116) Troponin I Quantitative 0.023 ng/mL (0.000-0.055) WR-Lfl-R-Type Natriuretic Peptide > 87144 pg/mL (0-124) Total Protein 7.4 g/dL (6.4-8.2) Albumin 3.3 g/dL (3.4-5.0) Albumin/Globulin Ratio 0.8 (1.0-1.7) O2 Saturation 96 % (92-99) Arterial Blood pH 7.37 (7.35-7.45) Arterial Blood pCO2 at Patient Temp 42 mmHg (35-46) Arterial Blood pO2 at Patient Temp 102 mmHg (85-108) Arterial Blood HCO3 24 mmol/L (21-28) Arterial Blood Base Excess -1 mmol/L (-3-3) Oxyhemoglobin 94.0 % Methemoglobin 0.2 % (0.0-1.9) Carbon Monoxide, Quantitative 2.2 % (0.0-1.9) FiO2 50 Prothrombin Time 38.2 SEC (11.7-14.0) Prothromb Time International Ratio 3.8 (0.8-1.1) Laboratory Tests Test 09/24/19 21:20 09/24/19 21:50 09/24/19 22:27 09/25/19 09:55 White Blood Count 16.5 x10^3/uL (4.0-11.0) 10.1 x10^3/uL (4.0-11.0) Red Blood Count 2.83 x10^6/uL (3.50-5.40) 2.32 x10^6/uL (3.50-5.40) Hemoglobin 8.7 g/dL (12.0-15.5) 7.1 g/dL (12.0-15.5) Hematocrit 26.1 % (36.0-47.0) 21.7 % (36.0-47.0) Mean Corpuscular Volume 92 fL (79-100) 94 fL (79-100) Mean Corpuscular Hemoglobin 31 pg (25-35) 31 pg (25-35) Mean Corpuscular Hemoglobin Concent 33 g/dL (31-37) 33 g/dL (31-37) Red Cell Distribution Width 21.2 % (11.5-14.5) 21.3 % (11.5-14.5) Platelet Count 492 x10^3/uL (140-400) 380 x10^3/uL (140-400) Neutrophils (%) (Auto) 69 % (31-73) 63 % (31-73) Lymphocytes (%) (Auto) 7 % (24-48) 12 % (24-48) Monocytes (%) (Auto) 7 % (0-9) 9 % (0-9) Eosinophils (%) (Auto) 17 % (0-3) 15 % (0-3) Basophils (%) (Auto) 1 % (0-3) 1 % (0-3) Neutrophils # (Auto) 11.4 x10^3/uL (1.8-7.7) 6.4 x10^3/uL (1.8-7.7) Lymphocytes # (Auto) 1.1 x10^3/uL (1.0-4.8) 1.2 x10^3/uL (1.0-4.8) Monocytes # (Auto) 1.1 x10^3/uL (0.0-1.1) 0.9 x10^3/uL (0.0-1.1) Eosinophils # (Auto) 2.8 x10^3/uL (0.0-0.7) 1.5 x10^3/uL (0.0-0.7) Basophils # (Auto) 0.1 x10^3/uL (0.0-0.2) 0.1 x10^3/uL (0.0-0.2) Segmented Neutrophils % 73 % (35-66) Band Neutrophils % 2 % (0-9) Lymphocytes % 3 % (24-48) Monocytes % 3 % (0-10) Eosinophils % 19 % (0-5) Platelet Estimate Increased (ADEQUATE) Macrocytosis Slight Sodium Level 139 mmol/L (136-145) 139 mmol/L (136-145) Potassium Level 5.8 mmol/L (3.5-5.1) 6.3 mmol/L (3.5-5.1) Chloride Level 98 mmol/L (98-107) 99 mmol/L (98-107) Carbon Dioxide Level 25 mmol/L (21-32) 24 mmol/L (21-32) Anion Gap 16 (6-14) 16 (6-14) Blood Urea Nitrogen 67 mg/dL (7-20) 80 mg/dL (7-20) Creatinine 10.9 mg/dL (0.6-1.0) 11.5 mg/dL (0.6-1.0) Estimated GFR (Cockcroft-Gault) 4.9 4.6 BUN/Creatinine Ratio 6 (6-20) Glucose Level 159 mg/dL (70-99) 74 mg/dL (70-99) Calcium Level 7.9 mg/dL (8.5-10.1) 7.8 mg/dL (8.5-10.1) Total Bilirubin 0.4 mg/dL (0.2-1.0) Aspartate Amino Transf (AST/SGOT) 17 U/L (15-37) Alanine Aminotransferase (ALT/SGPT) 20 U/L (14-59) Alkaline Phosphatase 157 U/L (46-116) Troponin I Quantitative 0.023 ng/mL (0.000-0.055) QH-Szd-V-Type Natriuretic Peptide > 83858 pg/mL (0-124) Total Protein 7.4 g/dL (6.4-8.2) Albumin 3.3 g/dL (3.4-5.0) Albumin/Globulin Ratio 0.8 (1.0-1.7) O2 Saturation 96 % (92-99) Arterial Blood pH 7.37 (7.35-7.45) Arterial Blood pCO2 at Patient Temp 42 mmHg (35-46) Arterial Blood pO2 at Patient Temp 102 mmHg (85-108) Arterial Blood HCO3 24 mmol/L (21-28) Arterial Blood Base Excess -1 mmol/L (-3-3) Oxyhemoglobin 94.0 % Methemoglobin 0.2 % (0.0-1.9) Carbon Monoxide, Quantitative 2.2 % (0.0-1.9) FiO2 50 Prothrombin Time 38.2 SEC (11.7-14.0) Prothromb Time International Ratio 3.8 (0.8-1.1) Assessment/Plan Assessment/Plan IMP ESRD CHF-ACUTE ON CHRONIC ANEMIA LEUCOCYTOSIS NON COMPLIANCE PLAN HD TODAY UF TO [facility] COMPLIANCE WILL FOLLOW ERVIN MARTINEZ MD Sep 25, 2019 11:24
[2019-09-25] MEDS ORDERED: IV NORMAL SALINE 1000ML BAG 1,000 ML IV PRN ×2 (11:46)
--- NOTE | 2019-09-25 11:51 | NUR ---
SS following for discharge planning. SS reviewed pt chart and discussed with pt RN. Pt is from home and is currently on BIPAP. Pt has outpatient dialysis at [facility], ; fax [phone], Tuesday, , and Tuesday. COVID19 pending. Pt has increased potassium and creatinine. Per RN, pt to transfer upstairs today. SS will continue to follow for discharge planning.
[2019-09-25] MEDS ORDERED: DIALYSIS PATIENT. MC PRN ×2 (12:00)
--- NOTE | 2019-09-25 13:08 | PDOC1 ---
History and Physical Date of Admission: Date of Admission DATE: 09/25/19 TIME: 13:06 Chief Complaint: Problems: (1) Left against medical advice (2) Hematuria (3) Hyperglycemia (4) Nausea and vomiting (5) Severe malnutrition (6) Noncompliance with medication regimen (7) Numbness on right side (8) Tachycardia (9) Pneumonia (10) Anxiety (11) Uncontrolled type 2 diabetes mellitus (12) Anemia (13) Accelerated hypertension (14) Body aches (15) Uncontrolled hypertension (16) Intractable low back pain (17) Person under investigation for COVID-19 (18) Hyperkalemia (19) Respiratory failure Chief Complain: Shortness of breath History of Present Illness: HPI: This is a middle-aged female who is on dialysis and is well-known to our service Periodically she skips dialysis and she did again Now she is volume overloaded and short of breath Rates her symptoms at 7 out of 10 She has associated pain and has a history of drug narcotic dependence States her symptoms are worse with movement Zosyn still I discussed the case with the ER physician and Dr. Bernstein We are going to meet the patient and get her dialyzed Past Medical/Surgical History: PMH/PSH: Past Medical History: Anxiety, Arthritis, Depression, Diabetes-Type II, Hypertension, Renal Failure, Other Additional Past Medical Histor: NEUROPATHY Past Surgical History: , Other Additional Past Surgical Histo: kidney biopsy,dialysis cath R chest,UTERINE ABLATION. Smoking Status: Current Every Day Smoker Alcohol Use: None Drug Use: Marijuana Allergies: Allergies: Coded Allergies: No Known Drug Allergies (Unverified , 12/05/17) Family History: Family History: Hypertension Social History: Social History: She does not drink she smokes marijuana and cigarettes Current Medications: Current Medications Current Medications Nitroglycerin (Nitro-Bid Oint) 1 inch 1X ONCE TP Last administered on 09/24/19at 22:19; Start 09/24/19 at 22:00; Stop 09/24/19 at 22:01; Status DC Morphine Sulfate (Morphine Sulfate) 4 mg 1X ONCE IV Last administered on 09/24/19at 22:19; Start 09/24/19 at 22:00; Stop 09/24/19 at 22:01; Status DC Lorazepam (Ativan Inj) 1 mg 1X ONCE IVP Last administered on 09/24/19at 23:12; Start 09/24/19 at 23:00; Stop 09/24/19 at 23:04; Status DC Amlodipine Besylate (Norvasc) 10 mg DAILY PO Last administered on 09/25/19 08:27; Start 09/25/19 at 09:00 Aspirin (Aspirin Chewable) 81 mg DAILY PO Last administered on 09/25/19 08:28; Start 09/25/19 at 09:00 Bisacodyl (Dulcolax Supp) 10 mg PRN DAILY PRN TX CONSTIPATION; Start 09/24/19 at 23:00 Docusate Sodium (Colace) 100 mg PRN BID PRN PO HARD STOOLS; Start 09/24/19 at 23:00 Vitamin B Complex/ Vitamin C (Wendy-Marvin) 1 tab DAILY PO Last administered on 09/25/19 08:27; Start 09/25/19 at 09:00 Hydralazine HCl (Apresoline) 75 mg BID PO Last administered on 09/25/19 08:28; Start 09/25/19 at 09:00 Acetaminophen/ Hydrocodone Bitart (Lortab 5/325) 1 tab PRN Q6HRS PRN PO MODERATE PAIN 4-6 Last administered on 09/25/19 12:41; Start 09/24/19 at 23:00 Levetiracetam (Keppra) 375 mg BID PO Last administered on 09/25/19 08:26; Start 09/25/19 at 09:00 Lubiprostone (Amitiza) 24 mcg BIDWMEALS PO Last administered on 09/25/19at 10:28; Start 09/25/19 at 08:00 Ondansetron HCl (Zofran Odt) 4 mg PRN Q6HRS PRN PO NAUSEA/VOMITING 1ST CHOICE; Start 09/24/19 at 23:00 Sevelamer Carbonate (Renvela) 800 mg TIDWMEALS PO Last administered on 09/25/19 12:19; Start 09/25/19 at 08:00 Warfarin Sodium (Coumadin) 4 mg DAILY PO ; Start 09/25/19 at 09:00; Status UNV Carvedilol (Coreg) 25 mg BIDWMEALS PO Last administered on 09/25/19at 08:27; Start 09/25/19 at 08:00 Pantoprazole Sodium (Protonix) 40 mg DAILYAC PO Last administered on 09/25/19at 08:28; Start 09/25/19 at 07:30 Diclofenac Sodium (Voltaren) 1 day BID TP Last administered on 09/25/19at 08:26; Start 09/25/19 at 09:00 Warfarin Sodium (Coumadin Per Physician) 1 each PRN DAILY PRN MC SEE COMMENTS; Start 09/24/19 at 23:15 Ondansetron HCl (Zofran) 4 mg PRN Q8HRS PRN IV NAUSEA/VOMITING 1ST CHOICE; Start 09/24/19 at 23:15; Stop 09/25/19 at 23:14 Insulin Human Regular (HumuLIN R VIAL) 10 unit 1X ONCE IV Last administered on 09/25/19at 01:06; Start 09/25/19 at 00:30; Stop 09/25/19 at 00:31; Status DC Dextrose (Dextrose 50%-Water Syringe) 25 gm 1X ONCE IV Last administered on 09/25/19at 01:02; Start 09/25/19 at 00:30; Stop 09/25/19 at 00:31; Status DC Calcium Gluconate 1000 mg/Sodium Chloride 110 ml @ 220 mls/hr 1X ONCE IV Last administered on 09/25/19at 01:02; Start 09/25/19 at 00:30; Stop 09/25/19 at 00:59; Status DC Labetalol HCl (Normodyne Iv Push) 10 mg PRN Q2HR PRN IVP HYPERTENSION Last administered on 09/25/19at 06:01; Start 09/25/19 at 06:00 Warfarin Sodium (Coumadin) 4 mg DAILY16 PO ; Start 09/26/19 at 16:00 Warfarin Sodium (Coumadin - No Dose Today) 1 each 1X WARF ONCE MC ; Start 09/25/19 at 16:00; Stop 09/25/19 at 16:01 Darbepoetin Fredrick (ARANESP for DIALYSIS PTS) 60 mcg WEEKLYHS SQ ; Start 09/25/19 at 21:00 Sodium Chloride 1,000 ml @ 1,000 mls/hr Q1H PRN IV hypotension; Start 09/25/19 at 11:46; Stop 09/25/19 at 17:45 Sodium Chloride 1,000 ml @ 400 mls/hr Q2H30M PRN IV PATENCY; Start 09/25/19 at 11:46; Stop 09/25/19 at 23:45 Info (PHARMACY MONITORING -- do not chart) 1 each PRN DAILY PRN MC SEE COMMENTS; Start 09/25/19 at 12:00; Status UNV Info (PHARMACY MONITORING -- do not chart) 1 each PRN DAILY PRN MC SEE COMMENTS; Start 09/25/19 at 12:00 Active Scripts Active [place] 5-325 Tablet (Acetaminophen/Hydrocodone Bitart) 1 Each Tablet 1 Tab PO PRN Q6HRS PRN Ondansetron Odt (Ondansetron) 4 Mg Tab.rapdis 4 Mg PO PRN Q6HRS PRN 14 Days Dok (Docusate Sodium) 100 Mg Capsule 100 Mg PO PRN BID PRN 30 Days Bisacodyl 10 Mg Supp.rect 10 Mg TX PRN DAILY PRN 14 Days Gabapentin 300 Mg Capsule 300 Mg PO DAILY08 30 Days Keppra (Levetiracetam) 250 Mg Tablet 375 Mg PO BID 30 Days Gabapentin 300 Mg Capsule 600 Mg PO HS 30 Days Hydralazine Hcl 50 Mg Tablet 75 Mg PO BID 30 Days Proair Hfa (Albuterol Sulfate) 8.5 Gm Hfa.aer.ad 2.5 Mg NEB PRN Q4HRS PRN 14 Days Amitiza (Lubiprostone) 24 Mcg Capsule 24 Mcg PO BIDWMEALS 30 Days [Diclofenac Sodium] 100 GM Gel..gram. 1 Day TP BID 30 Days Reported Coumadin (Warfarin Sodium) 4 Mg Tablet 1 Tab PO DAILY Renvela (Sevelamer Carbonate) 800 Mg Tablet 1 Tab PO TID 30 Days Wendy-Marvin Tablet (Folic Acid/Vitamin B Comp W-C) 0.8 Mg Tablet 1 Tab PO DAILY 30 Days Protonix (Pantoprazole Sodium) 20 Mg Tablet.dr 2 Tab PO DAILY Carvedilol 25 Mg Tablet 25 Mg PO BIDWMEALS Aspirin 81 Mg Tab.chew 1 Tab PO DAILY Amitriptyline Hcl 75 Mg Tablet 1 Tab PO QHS Amlodipine Besylate 10 Mg Tablet 10 Mg PO DAILY ROS: Review of Systems Review of System REVIEW OF SYSTEMS: GENERAL: Denies weakness SKIN: No bruising, hair changes or rashes. EYES: No blurred, double or loss of vision. NOSE AND THROAT: No history of nosebleeds, hoarseness or sore throat. HEART: No history of palpitations, chest pain or shortness of breath on exertion. LUNGS: Complains of shortness of GASTROINTESTINAL: Denies changes in appetite, nausea, vomiting, diarrhea or constipation. GENITOURINARY: No history of frequency, urgency, hesitancy or nocturia. NEUROLOGIC: Denies history of numbness, tingling, or tremor. PSYCHIATRIC: No history of panic, anxiety or depression. ENDOCRINE: No history of heat or cold intolerance, polyuria or polydipsia. EXTREMITIES: Denies joint pain, pain on walking or stiffness. Physical Exam: Vital Signs: Vital Signs Date Time Temp Pulse Resp B/P (MAP) Pulse Ox O2 Delivery O2 Flow Rate FiO2 09/25/19 12:41 22 98 Nasal Cannula 2.0 09/25/19 12:00 98.2 76 139/76 (97) 98.2 Physcial Exam: GEN: No apparent distress. Alert and oriented HEENT: Normal cephalic, atraumatic, external auditory canals are patent EYES: Extraocular muscles are intact, pupil are equally round and reactive to light and accommodation MUSCULOSKELETAL: Well developed , well nourished, good range of motion ENDOCRINE: No thyromegaly was palpated LYMPHATICS: No cervical chain or axillary nodes were noted HEMATOPOIETIC: No bruising NECK: Supple, no JVD, no thyromegaly was noted LUNGS: Bibasilar crackles HEART: RRR, S!, S2 present. Peripheral pulses intact, no obvious murmurs noted ABDOMEN: Soft, nontender. Positive bowel sounds, no organomegaly, normal bowel sounds EXTREMITIES: Without clubbing, cyanosis, or edema. Pedal pulses intact. Negative Homans sign NEUROLOGIC: Normal speech and tone. A&O x 3, moves all extremities, no obvious focal deficits PSYCHIATRIC: Normal affect, normal mood. Stable SKIN: No ulcerations or rashes, good skin turgor, no jaundice VASCULAR: Good capillary refill, neurovascular bundle appears to be intact Labs: Labs: Laboratory Tests Test 09/24/19 21:20 09/24/19 21:50 09/24/19 22:27 09/25/19 09:55 White Blood Count 16.5 x10^3/uL (4.0-11.0) 10.1 x10^3/uL (4.0-11.0) Red Blood Count 2.83 x10^6/uL (3.50-5.40) 2.32 x10^6/uL (3.50-5.40) Hemoglobin 8.7 g/dL (12.0-15.5) 7.1 g/dL (12.0-15.5) Hematocrit 26.1 % (36.0-47.0) 21.7 % (36.0-47.0) Mean Corpuscular Volume 92 fL (79-100) 94 fL (79-100) Mean Corpuscular Hemoglobin 31 pg (25-35) 31 pg (25-35) Mean Corpuscular Hemoglobin Concent 33 g/dL (31-37) 33 g/dL (31-37) Red Cell Distribution Width 21.2 % (11.5-14.5) 21.3 % (11.5-14.5) Platelet Count 492 x10^3/uL (140-400) 380 x10^3/uL (140-400) Neutrophils (%) (Auto) 69 % (31-73) 63 % (31-73) Lymphocytes (%) (Auto) 7 % (24-48) 12 % (24-48) Monocytes (%) (Auto) 7 % (0-9) 9 % (0-9) Eosinophils (%) (Auto) 17 % (0-3) 15 % (0-3) Basophils (%) (Auto) 1 % (0-3) 1 % (0-3) Neutrophils # (Auto) 11.4 x10^3/uL (1.8-7.7) 6.4 x10^3/uL (1.8-7.7) Lymphocytes # (Auto) 1.1 x10^3/uL (1.0-4.8) 1.2 x10^3/uL (1.0-4.8) Monocytes # (Auto) 1.1 x10^3/uL (0.0-1.1) 0.9 x10^3/uL (0.0-1.1) Eosinophils # (Auto) 2.8 x10^3/uL (0.0-0.7) 1.5 x10^3/uL (0.0-0.7) Basophils # (Auto) 0.1 x10^3/uL (0.0-0.2) 0.1 x10^3/uL (0.0-0.2) Segmented Neutrophils % 73 % (35-66) Band Neutrophils % 2 % (0-9) Lymphocytes % 3 % (24-48) Monocytes % 3 % (0-10) Eosinophils % 19 % (0-5) Platelet Estimate Increased (ADEQUATE) Macrocytosis Slight Sodium Level 139 mmol/L (136-145) 139 mmol/L (136-145) Potassium Level 5.8 mmol/L (3.5-5.1) 6.3 mmol/L (3.5-5.1) Chloride Level 98 mmol/L (98-107) 99 mmol/L (98-107) Carbon Dioxide Level 25 mmol/L (21-32) 24 mmol/L (21-32) Anion Gap 16 (6-14) 16 (6-14) Blood Urea Nitrogen 67 mg/dL (7-20) 80 mg/dL (7-20) Creatinine 10.9 mg/dL (0.6-1.0) 11.5 mg/dL (0.6-1.0) Estimated GFR (Cockcroft-Gault) 4.9 4.6 BUN/Creatinine Ratio 6 (6-20) Glucose Level 159 mg/dL (70-99) 74 mg/dL (70-99) Calcium Level 7.9 mg/dL (8.5-10.1) 7.8 mg/dL (8.5-10.1) Total Bilirubin 0.4 mg/dL (0.2-1.0) Aspartate Amino Transf (AST/SGOT) 17 U/L (15-37) Alanine Aminotransferase (ALT/SGPT) 20 U/L (14-59) Alkaline Phosphatase 157 U/L (46-116) Troponin I Quantitative 0.023 ng/mL (0.000-0.055) [id number]-Type Natriuretic Peptide > 63164 pg/mL (0-124) Total Protein 7.4 g/dL (6.4-8.2) Albumin 3.3 g/dL (3.4-5.0) Albumin/Globulin Ratio 0.8 (1.0-1.7) O2 Saturation 96 % (92-99) Arterial Blood pH 7.37 (7.35-7.45) Arterial Blood pCO2 at Patient Temp 42 mmHg (35-46) Arterial Blood pO2 at Patient Temp 102 mmHg (85-108) Arterial Blood HCO3 24 mmol/L (21-28) Arterial Blood Base Excess -1 mmol/L (-3-3) Oxyhemoglobin 94.0 % Methemoglobin 0.2 % (0.0-1.9) Carbon Monoxide, Quantitative 2.2 % (0.0-1.9) FiO2 50 Prothrombin Time 38.2 SEC (11.7-14.0) Prothromb Time International Ratio 3.8 (0.8-1.1) Laboratory Tests Test 09/24/19 21:20 09/24/19 21:50 09/24/19 22:27 09/25/19 09:55 White Blood Count 16.5 x10^3/uL (4.0-11.0) 10.1 x10^3/uL (4.0-11.0) Red Blood Count 2.83 x10^6/uL (3.50-5.40) 2.32 x10^6/uL (3.50-5.40) Hemoglobin 8.7 g/dL (12.0-15.5) 7.1 g/dL (12.0-15.5) Hematocrit 26.1 % (36.0-47.0) 21.7 % (36.0-47.0) Mean Corpuscular Volume 92 fL (79-100) 94 fL (79-100) Mean Corpuscular Hemoglobin 31 pg (25-35) 31 pg (25-35) Mean Corpuscular Hemoglobin Concent 33 g/dL (31-37) 33 g/dL (31-37) Red Cell Distribution Width 21.2 % (11.5-14.5) 21.3 % (11.5-14.5) Platelet Count 492 x10^3/uL (140-400) 380 x10^3/uL (140-400) Neutrophils (%) (Auto) 69 % (31-73) 63 % (31-73) Lymphocytes (%) (Auto) 7 % (24-48) 12 % (24-48) Monocytes (%) (Auto) 7 % (0-9) 9 % (0-9) Eosinophils (%) (Auto) 17 % (0-3) 15 % (0-3) Basophils (%) (Auto) 1 % (0-3) 1 % (0-3) Neutrophils # (Auto) 11.4 x10^3/uL (1.8-7.7) 6.4 x10^3/uL (1.8-7.7) Lymphocytes # (Auto) 1.1 x10^3/uL (1.0-4.8) 1.2 x10^3/uL (1.0-4.8) Monocytes # (Auto) 1.1 x10^3/uL (0.0-1.1) 0.9 x10^3/uL (0.0-1.1) Eosinophils # (Auto) 2.8 x10^3/uL (0.0-0.7) 1.5 x10^3/uL (0.0-0.7) Basophils # (Auto) 0.1 x10^3/uL (0.0-0.2) 0.1 x10^3/uL (0.0-0.2) Segmented Neutrophils % 73 % (35-66) Band Neutrophils % 2 % (0-9) Lymphocytes % 3 % (24-48) Monocytes % 3 % (0-10) Eosinophils % 19 % (0-5) Platelet Estimate Increased (ADEQUATE) Macrocytosis Slight Sodium Level 139 mmol/L (136-145) 139 mmol/L (136-145) Potassium Level 5.8 mmol/L (3.5-5.1) 6.3 mmol/L (3.5-5.1) Chloride Level 98 mmol/L (98-107) 99 mmol/L (98-107) Carbon Dioxide Level 25 mmol/L (21-32) 24 mmol/L (21-32) Anion Gap 16 (6-14) 16 (6-14) Blood Urea Nitrogen 67 mg/dL (7-20) 80 mg/dL (7-20) Creatinine 10.9 mg/dL (0.6-1.0) 11.5 mg/dL (0.6-1.0) Estimated GFR (Cockcroft-Gault) 4.9 4.6 BUN/Creatinine Ratio 6 (6-20) Glucose Level 159 mg/dL (70-99) 74 mg/dL (70-99) Calcium Level 7.9 mg/dL (8.5-10.1) 7.8 mg/dL (8.5-10.1) Total Bilirubin 0.4 mg/dL (0.2-1.0) Aspartate Amino Transf (AST/SGOT) 17 U/L (15-37) Alanine Aminotransferase (ALT/SGPT) 20 U/L (14-59) Alkaline Phosphatase 157 U/L (46-116) Troponin I Quantitative 0.023 ng/mL (0.000-0.055) ZI-[id number]-[id number]-Type Natriuretic Peptide > 95497 pg/mL (0-124) Total Protein 7.4 g/dL (6.4-8.2) Albumin 3.3 g/dL (3.4-5.0) Albumin/Globulin Ratio 0.8 (1.0-1.7) O2 Saturation 96 % (92-99) Arterial Blood pH 7.37 (7.35-7.45) Arterial Blood pCO2 at Patient Temp 42 mmHg (35-46) Arterial Blood pO2 at Patient Temp 102 mmHg (85-108) Arterial Blood HCO3 24 mmol/L (21-28) Arterial Blood Base Excess -1 mmol/L (-3-3) Oxyhemoglobin 94.0 % Methemoglobin 0.2 % (0.0-1.9) Carbon Monoxide, Quantitative 2.2 % (0.0-1.9) FiO2 50 Prothrombin Time 38.2 SEC (11.7-14.0) Prothromb Time International Ratio 3.8 (0.8-1.1) Images: Images Chest x-ray with vascular congestion Assessment/Plan Assessment/Plan Volume overload secondary to missing dialysis and middle-aged female who has end-stage renal disease Chronic pain Plan Admit to ICU Consult Dr. Bernstein and he is here with the patient with me and we will dialyze her today Trend labs Home meds DVT prophylaxis Full code Justicifation of Admission Dx: Justifications for Admission: Justification of Admission Dx: Yes JULIAN GONSALVES III DO Sep 25, 2019 13:08
[2019-09-25] MEDS ORDERED: HYDROmorphone 2 MG/ML VIAL IV ONE (18:45)
[2019-09-25] MEDS: DARBEPOETIN ALFA 60 MCG/0.3 ML DISP.SYRIN. SQ SCH ×2 (20:43→21:00)
--- NOTE | 2019-09-25 21:19 | NUR ---
Patient refused aranesp shot says, "I never get those because they hurt." Could not be educated into taking it. Non-administered under patient refusal.
--- NOTE | 2019-09-25 22:03 | NUR ---
New 22 G IV placed by this RN this evening "fell out" according to patient. Patient refusing new IV, does not get any IV medications. Addendum: 09/25/19 at 2239 by IRMA FELIPE RN RN Dr. Arrieta notified of no IV access.
[2019-09-26] VITALS (9 sets, daily range): BP systolic 148–177; BP diastolic 72–115
[2019-09-26] MEDS: HYDROcodone/APAP 5/325MG 1 TAB TABLET PO PRN ×2 (04:18→10:32)
[2019-09-26 05:33] LABS: ALBUMIN 2.7 g/dL (3.4-5.0); CALCIUM 8.3 mg/dL (8.5-10.1); CREATININE 6.1 mg/dL (0.6-1.0); GFR 9.5; PHOSPHORUS 5.3 mg/dL (2.6-4.7); POTASSIUM 4.4 mmol/L (3.5-5.1)
[2019-09-26 07:38] LABS: PROTHROMBIN TIME PATIENT 32.4 SEC (11.7-14.0)
[2019-09-26] MEDS: LUBIPROSTONE 24 MCG CAPSULE PO SCH ×2 (08:00→16:31)
--- NOTE | 2019-09-26 08:20 | NUR ---
Pt transferred to [id number] with all personal belongings. Pt oriented to room. RAJNI Marcus was in the room with the pt to take over care.
--- NOTE | 2019-09-26 08:57 | PDOC ---
PROGRESS NOTES Chief Complaint Chief Complaint Shortness of breath - from fluid overload 2/2 missed dialysis sessions most likely, improved COVID 19 - with hypoxia and pneumonia, on warfarin for anticoagulation Acute hypoxic respiratory failure - 2/2 fluid overload and COVID 19 pneumonia Acute diastolic CHF exacerbation Hyperkalemia - 2/2 dialysis compliance difficulties Intractable back pain - with radiculopathy to bilateral lower extremities. She notes this is gout Lower extremity pain - bilateral knees, ankles, states she has had extensive work-up at [facility] for neuropathy and vascular studies that were negative. End-stage renal disease secondary to diabetes mellitus, hypertension and nephrosclerosis - [facility] dialysis Anxiety - on home meds Seizures - on keppra Osteoarthritis - will try topical voltaren Diabetes - basal bolus plus regimen inpatient Hypertension - will cont meds Abnormal right lower lobe lung consolidation - had recent pneumonia at [facility] and thoracentesis x2. She states this is stable Pelvic fluid - no sign of abscess, though density could be consistent with debris/blood, states her abdominal pain is improved after IV fentanyl only Aortic atherosclerosis - likely 2/2 ESRD FEN - Renal diet PPX - warfarin FULL CODE Dispo - inpatient 2 [facility] History of Present Illness History of Present Illness Ms Wilder is a 34 yo F w/PMHx Anxiety, Arthritis, Diabetes-Type II, Hypertension, neuropathy, ESRD on HD (previously PD) who c/o shortness of breath and diffuse myalgias. Patient states that she has missed her last few dialysis treatments despite having scheduled transportation. Initially was in moderate distress on BiPAP with WBC 15 K. Improved after urgent dialysis She tells me she has gout in her left ankle currently. She denies any fever. She does indicate that she has a cough but it is been nonproductive. Patient rates pain in her body and an 8 out of 10. COVID-19 positive During conversation today she had O2 saturations 96%. Requesting to go home to stay with her children and mother. I have advised her she must isolate herself from her family as they are not positive for at least 10 days from tomorrow and for 72 hours after her symptoms of shortness of breath and fevers have resolved per CDC guidelines. After I left the room she fell asleep and was noted to have O2 saturation of 84% which I confirmed and canceled discharge so that she may remain inpatient for repeat dialysis session and further monitoring. Vitals Vitals Vital Signs Date Time Temp Pulse Resp B/P (MAP) Pulse Ox O2 Delivery O2 Flow Rate FiO2 09/26/19 08:18 98.2 80 20 168/115 (132) 100 Nasal Cannula 2.0 98.2 Physical Exam General: Alert, Oriented X3, Cooperative, moderate distress Heart: Regular rate Lungs: Clear Abdomen: Normal bowel sounds, Soft, No tenderness Extremities: No clubbing, No cyanosis Skin: No breakdown Labs LABS Laboratory Tests Test 09/25/19 09:55 09/26/19 04:45 White Blood Count 10.1 x10^3/uL (4.0-11.0) Red Blood Count 2.32 x10^6/uL (3.50-5.40) Hemoglobin 7.1 g/dL (12.0-15.5) Hematocrit 21.7 % (36.0-47.0) Mean Corpuscular Volume 94 fL (79-100) Mean Corpuscular Hemoglobin 31 pg (25-35) Mean Corpuscular Hemoglobin Concent 33 g/dL (31-37) Red Cell Distribution Width 21.3 % (11.5-14.5) Platelet Count 380 x10^3/uL (140-400) Neutrophils (%) (Auto) 63 % (31-73) Lymphocytes (%) (Auto) 12 % (24-48) Monocytes (%) (Auto) 9 % (0-9) Eosinophils (%) (Auto) 15 % (0-3) Basophils (%) (Auto) 1 % (0-3) Neutrophils # (Auto) 6.4 x10^3/uL (1.8-7.7) Lymphocytes # (Auto) 1.2 x10^3/uL (1.0-4.8) Monocytes # (Auto) 0.9 x10^3/uL (0.0-1.1) Eosinophils # (Auto) 1.5 x10^3/uL (0.0-0.7) Basophils # (Auto) 0.1 x10^3/uL (0.0-0.2) Prothrombin Time 38.2 SEC (11.7-14.0) 32.4 SEC (11.7-14.0) Prothromb Time International Ratio 3.8 (0.8-1.1) 3.1 (0.8-1.1) Sodium Level 139 mmol/L (136-145) 139 mmol/L (136-145) Potassium Level 6.3 mmol/L (3.5-5.1) 4.4 mmol/L (3.5-5.1) Chloride Level 99 mmol/L (98-107) 99 mmol/L (98-107) Carbon Dioxide Level 24 mmol/L (21-32) 32 mmol/L (21-32) Anion Gap 16 (6-14) 8 (6-14) Blood Urea Nitrogen 80 mg/dL (7-20) 33 mg/dL (7-20) Creatinine 11.5 mg/dL (0.6-1.0) 6.1 mg/dL (0.6-1.0) Estimated GFR (Cockcroft-Gault) 4.6 9.5 Glucose Level 74 mg/dL (70-99) 155 mg/dL (70-99) Calcium Level 7.8 mg/dL (8.5-10.1) 8.3 mg/dL (8.5-10.1) Phosphorus Level 5.3 mg/dL (2.6-4.7) Albumin 2.7 g/dL (3.4-5.0) Assessment and Plan Assessmemt and Plan Problems Medical Problems: (1) Respiratory failure Status: Acute Comment Review of Relevant I have reviewed the following items jamie (where applicable) has been applied. Labs Laboratory Tests Test 09/24/19 21:20 09/24/19 21:50 09/24/19 22:27 09/24/19 23:16 White Blood Count 16.5 x10^3/uL (4.0-11.0) Red Blood Count 2.83 x10^6/uL (3.50-5.40) Hemoglobin 8.7 g/dL (12.0-15.5) Hematocrit 26.1 % (36.0-47.0) Mean Corpuscular Volume 92 fL (79-100) Mean Corpuscular Hemoglobin 31 pg (25-35) Mean Corpuscular Hemoglobin Concent 33 g/dL (31-37) Red Cell Distribution Width 21.2 % (11.5-14.5) Platelet Count 492 x10^3/uL (140-400) Neutrophils (%) (Auto) 69 % (31-73) Lymphocytes (%) (Auto) 7 % (24-48) Monocytes (%) (Auto) 7 % (0-9) Eosinophils (%) (Auto) 17 % (0-3) Basophils (%) (Auto) 1 % (0-3) Neutrophils # (Auto) 11.4 x10^3/uL (1.8-7.7) Lymphocytes # (Auto) 1.1 x10^3/uL (1.0-4.8) Monocytes # (Auto) 1.1 x10^3/uL (0.0-1.1) Eosinophils # (Auto) 2.8 x10^3/uL (0.0-0.7) Basophils # (Auto) 0.1 x10^3/uL (0.0-0.2) Segmented Neutrophils % 73 % (35-66) Band Neutrophils % 2 % (0-9) Lymphocytes % 3 % (24-48) Monocytes % 3 % (0-10) Eosinophils % 19 % (0-5) Platelet Estimate Increased (ADEQUATE) Macrocytosis Slight Sodium Level 139 mmol/L (136-145) Potassium Level 5.8 mmol/L (3.5-5.1) Chloride Level 98 mmol/L (98-107) Carbon Dioxide Level 25 mmol/L (21-32) Anion Gap 16 (6-14) Blood Urea Nitrogen 67 mg/dL (7-20) Creatinine 10.9 mg/dL (0.6-1.0) Estimated GFR (Cockcroft-Gault) 4.9 BUN/Creatinine Ratio 6 (6-20) Glucose Level 159 mg/dL (70-99) Calcium Level 7.9 mg/dL (8.5-10.1) Total Bilirubin 0.4 mg/dL (0.2-1.0) Aspartate Amino Transf (AST/SGOT) 17 U/L (15-37) Alanine Aminotransferase (ALT/SGPT) 20 U/L (14-59) Alkaline Phosphatase 157 U/L (46-116) Troponin I Quantitative 0.023 ng/mL (0.000-0.055) XH-Ngq-C-Type Natriuretic Peptide > 23029 pg/mL (0-124) Total Protein 7.4 g/dL (6.4-8.2) Albumin 3.3 g/dL (3.4-5.0) Albumin/Globulin Ratio 0.8 (1.0-1.7) O2 Saturation 96 % (92-99) Arterial Blood pH 7.37 (7.35-7.45) Arterial Blood pCO2 at Patient Temp 42 mmHg (35-46) Arterial Blood pO2 at Patient Temp 102 mmHg (85-108) Arterial Blood HCO3 24 mmol/L (21-28) Arterial Blood Base Excess -1 mmol/L (-3-3) Oxyhemoglobin 94.0 % Methemoglobin 0.2 % (0.0-1.9) Carbon Monoxide, Quantitative 2.2 % (0.0-1.9) FiO2 50 Coronavirus (PCR) Detected (Not Detected) Test 09/25/19 09:55 09/26/19 04:45 White Blood Count 10.1 x10^3/uL (4.0-11.0) Red Blood Count 2.32 x10^6/uL (3.50-5.40) Hemoglobin 7.1 g/dL (12.0-15.5) Hematocrit 21.7 % (36.0-47.0) Mean Corpuscular Volume 94 fL (79-100) Mean Corpuscular Hemoglobin 31 pg (25-35) Mean Corpuscular Hemoglobin Concent 33 g/dL (31-37) Red Cell Distribution Width 21.3 % (11.5-14.5) Platelet Count 380 x10^3/uL (140-400) Neutrophils (%) (Auto) 63 % (31-73) Lymphocytes (%) (Auto) 12 % (24-48) Monocytes (%) (Auto) 9 % (0-9) Eosinophils (%) (Auto) 15 % (0-3) Basophils (%) (Auto) 1 % (0-3) Neutrophils # (Auto) 6.4 x10^3/uL (1.8-7.7) Lymphocytes # (Auto) 1.2 x10^3/uL (1.0-4.8) Monocytes # (Auto) 0.9 x10^3/uL (0.0-1.1) Eosinophils # (Auto) 1.5 x10^3/uL (0.0-0.7) Basophils # (Auto) 0.1 x10^3/uL (0.0-0.2) Prothrombin Time 38.2 SEC (11.7-14.0) 32.4 SEC (11.7-14.0) Prothromb Time International Ratio 3.8 (0.8-1.1) 3.1 (0.8-1.1) Sodium Level 139 mmol/L (136-145) 139 mmol/L (136-145) Potassium Level 6.3 mmol/L (3.5-5.1) 4.4 mmol/L (3.5-5.1) Chloride Level 99 mmol/L (98-107) 99 mmol/L (98-107) Carbon Dioxide Level 24 mmol/L (21-32) 32 mmol/L (21-32) Anion Gap 16 (6-14) 8 (6-14) Blood Urea Nitrogen 80 mg/dL (7-20) 33 mg/dL (7-20) Creatinine 11.5 mg/dL (0.6-1.0) 6.1 mg/dL (0.6-1.0) Estimated GFR (Cockcroft-Gault) 4.6 9.5 Glucose Level 74 mg/dL (70-99) 155 mg/dL (70-99) Calcium Level 7.8 mg/dL (8.5-10.1) 8.3 mg/dL (8.5-10.1) Phosphorus Level 5.3 mg/dL (2.6-4.7) Albumin 2.7 g/dL (3.4-5.0) Laboratory Tests Test 09/25/19 09:55 09/26/19 04:45 White Blood Count 10.1 x10^3/uL (4.0-11.0) Red Blood Count 2.32 x10^6/uL (3.50-5.40) Hemoglobin 7.1 g/dL (12.0-15.5) Hematocrit 21.7 % (36.0-47.0) Mean Corpuscular Volume 94 fL (79-100) Mean Corpuscular Hemoglobin 31 pg (25-35) Mean Corpuscular Hemoglobin Concent 33 g/dL (31-37) Red Cell Distribution Width 21.3 % (11.5-14.5) Platelet Count 380 x10^3/uL (140-400) Neutrophils (%) (Auto) 63 % (31-73) Lymphocytes (%) (Auto) 12 % (24-48) Monocytes (%) (Auto) 9 % (0-9) Eosinophils (%) (Auto) 15 % (0-3) Basophils (%) (Auto) 1 % (0-3) Neutrophils # (Auto) 6.4 x10^3/uL (1.8-7.7) Lymphocytes # (Auto) 1.2 x10^3/uL (1.0-4.8) Monocytes # (Auto) 0.9 x10^3/uL (0.0-1.1) Eosinophils # (Auto) 1.5 x10^3/uL (0.0-0.7) Basophils # (Auto) 0.1 x10^3/uL (0.0-0.2) Prothrombin Time 38.2 SEC (11.7-14.0) 32.4 SEC (11.7-14.0) Prothromb Time International Ratio 3.8 (0.8-1.1) 3.1 (0.8-1.1) Sodium Level 139 mmol/L (136-145) 139 mmol/L (136-145) Potassium Level 6.3 mmol/L (3.5-5.1) 4.4 mmol/L (3.5-5.1) Chloride Level 99 mmol/L (98-107) 99 mmol/L (98-107) Carbon Dioxide Level 24 mmol/L (21-32) 32 mmol/L (21-32) Anion Gap 16 (6-14) 8 (6-14) Blood Urea Nitrogen 80 mg/dL (7-20) 33 mg/dL (7-20) Creatinine 11.5 mg/dL (0.6-1.0) 6.1 mg/dL (0.6-1.0) Estimated GFR (Cockcroft-Gault) 4.6 9.5 Glucose Level 74 mg/dL (70-99) 155 mg/dL (70-99) Calcium Level 7.8 mg/dL (8.5-10.1) 8.3 mg/dL (8.5-10.1) Phosphorus Level 5.3 mg/dL (2.6-4.7) Albumin 2.7 g/dL (3.4-5.0) Medications Current Medications Nitroglycerin (Nitro-Bid Oint) 1 inch 1X ONCE TP Last administered on 09/24/19 22:19; Start 09/24/19 at 22:00; Stop 09/24/19 at 22:01; Status DC Morphine Sulfate (Morphine Sulfate) 4 mg 1X ONCE IV Last administered on 09/24/19at 22:19; Start 09/24/19 at 22:00; Stop 09/24/19 at 22:01; Status DC Lorazepam (Ativan Inj) 1 mg 1X ONCE IVP Last administered on 09/24/19at 23:12; Start 09/24/19 at 23:00; Stop 09/24/19 at 23:04; Status DC Amlodipine Besylate (Norvasc) 10 mg DAILY PO Last administered on 09/25/19at 08:27; Start 09/25/19 at 09:00 Aspirin (Aspirin Chewable) 81 mg DAILY PO Last administered on 09/25/19at 08:28; Start 09/25/19 at 09:00 Bisacodyl (Dulcolax Supp) 10 mg PRN DAILY PRN IA CONSTIPATION; Start 09/24/19 at 23:00 Docusate Sodium (Colace) 100 mg PRN BID PRN PO HARD STOOLS; Start 09/24/19 at 23:00 Vitamin B Complex/ Vitamin C (Wendy-Marvin) 1 tab DAILY PO Last administered on 09/25/19at 08:27; Start 09/25/19 at 09:00 Hydralazine HCl (Apresoline) 75 mg BID PO Last administered on 09/25/19at 20:41; Start 09/25/19 at 09:00 Acetaminophen/ Hydrocodone Bitart (Lortab 5/325) 1 tab PRN Q6HRS PRN PO MODERATE PAIN 4-6 Last administered on 09/26/19at 04:18; Start 09/24/19 at 23:00 Levetiracetam (Keppra) 375 mg BID PO Last administered on 09/25/19at 20:41; Start 09/25/19 at 09:00 Lubiprostone (Amitiza) 24 mcg BIDWMEALS PO Last administered on 09/25/19at 17:38; Start 09/25/19 at 08:00 Ondansetron HCl (Zofran Odt) 4 mg PRN Q6HRS PRN PO NAUSEA/VOMITING 1ST CHOICE; Start 09/24/19 at 23:00 Sevelamer Carbonate (Renvela) 800 mg TIDWMEALS PO Last administered on 09/25/19at 17:38; Start 09/25/19 at 08:00 Warfarin Sodium (Coumadin) 4 mg DAILY PO ; Start 09/25/19 at 09:00; Status UNV Carvedilol (Coreg) 25 mg BIDWMEALS PO Last administered on 09/25/19at 17:39; S tart 09/25/19 at 08:00 Pantoprazole Sodium (Protonix) 40 mg DAILYAC PO Last administered on 09/25/19at 08:28; Start 09/25/19 at 07:30 Diclofenac Sodium (Voltaren) 1 day BID TP Last administered on 09/25/19at 20:41; Start 09/25/19 at 09:00 Warfarin Sodium (Coumadin Per Physician) 1 each PRN DAILY PRN MC SEE COMMENTS; Start 09/24/19 at 23:15 Ondansetron HCl (Zofran) 4 mg PRN Q8HRS PRN IV NAUSEA/VOMITING 1ST CHOICE; Start 09/24/19 at 23:15; Stop 09/25/19 at 23:14; Status DC Insulin Human Regular (HumuLIN R VIAL) 10 unit 1X ONCE IV Last administered on 09/25/19at 01:06; Start 09/25/19 at 00:30; Stop 09/25/19 at 00:31; Status DC Dextrose (Dextrose 50%-Water Syringe) 25 gm 1X ONCE IV Last administered on 09/25/19at 01:02; Start 09/25/19 at 00:30; Stop 09/25/19 at 00:31; Status DC Calcium Gluconate 1000 mg/Sodium Chloride 110 ml @ 220 mls/hr 1X ONCE IV Last administered on 09/25/19at 01:02; Start 09/25/19 at 00:30; Stop 09/25/19 at 00:59; Status DC Labetalol HCl (Normodyne Iv Push) 10 mg PRN Q2HR PRN IVP HYPERTENSION Last administered on 09/25/19at 06:01; Start 09/25/19 at 06:00 Warfarin Sodium (Coumadin) 4 mg DAILY16 PO ; Start 09/26/19 at 16:00 Warfarin Sodium (Coumadin - No Dose Today) 1 each 1X WARF ONCE MC ; Start 09/25/19 at 16:00; Stop 09/25/19 at 16:01; Status DC Darbepoetin Fredrick (ARANESP for DIALYSIS PTS) 60 mcg WEEKLYHS SQ ; Start 09/25/19 at 21:00 Sodium Chloride 1,000 ml @ 1,000 mls/hr Q1H PRN IV hypotension; Start 09/25/19 at 11:46; Stop 09/25/19 at 17:45; Status DC Sodium Chloride 1,000 ml @ 400 mls/hr Q2H30M PRN IV PATENCY; Start 09/25/19 at 11:46; Stop 09/25/19 at 23:45; Status DC Info (PHARMACY MONITORING -- do not chart) 1 each PRN DAILY PRN MC SEE COMMENTS; Start 09/25/19 at 12:00; Status UNV Info (PHARMACY MONITORING -- do not chart) 1 each PRN DAILY PRN MC SEE COMMENTS; Start 09/25/19 at 12:00 Hydromorphone HCl (Dilaudid) 0.5 mg 1X ONCE IV Last administered on 09/25/19at 19:35; Start 09/25/19 at 18:45; Stop 09/25/19 at 18:46; Status DC Active Scripts Active Colwich 5-325 Tablet (Acetaminophen/Hydrocodone Bitart) 1 Each Tablet 1 Tab PO PRN Q6HRS PRN Ondansetron Odt (Ondansetron) 4 Mg Tab.rapdis 4 Mg PO PRN Q6HRS PRN 14 Days Dok (Docusate Sodium) 100 Mg Capsule 100 Mg PO PRN BID PRN 30 Days Bisacodyl 10 Mg Supp.rect 10 Mg IA PRN DAILY PRN 14 Days Gabapentin 300 Mg Capsule 300 Mg PO DAILY08 30 Days Keppra (Levetiracetam) 250 Mg Tablet 375 Mg PO BID 30 Days Gabapentin 300 Mg Capsule 600 Mg PO HS 30 Days Hydralazine Hcl 50 Mg Tablet 75 Mg PO BID 30 Days Proair Hfa (Albuterol Sulfate) 8.5 Gm Hfa.aer.ad 2.5 Mg NEB PRN Q4HRS PRN 14 Days Amitiza (Lubiprostone) 24 Mcg Capsule 24 Mcg PO BIDWMEALS 30 Days [Diclofenac Sodium] 100 GM Gel..gram. 1 Day TP BID 30 Days Reported Coumadin (Warfarin Sodium) 4 Mg Tablet 1 Tab PO DAILY Renvela (Sevelamer Carbonate) 800 Mg Tablet 1 Tab PO TID 30 Days Wendy-Marvin Tablet (Folic Acid/Vitamin B Comp W-C) 0.8 Mg Tablet 1 Tab PO DAILY 30 Days Protonix (Pantoprazole Sodium) 20 Mg Tablet.dr 2 Tab PO DAILY Carvedilol 25 Mg Tablet 25 Mg PO BIDWMEALS Aspirin 81 Mg Tab.chew 1 Tab PO DAILY Amitriptyline Hcl 75 Mg Tablet 1 Tab PO QHS Amlodipine Besylate 10 Mg Tablet 10 Mg PO DAILY Vitals/I & O Vital Sign - Last 24 Hours 09/25/19 09/25/19 09/25/19 09/25/19 09:00 10:00 11:00 11:52 Pulse 81 90 79 Resp 24 B/P (MAP) 176/89 (118) 160/90 (113) 156/81 (106) Pulse Ox 97 95 98 100 O2 Delivery BiPAP/CPAP Nasal Cannula BiPAP/CPAP BiPAP/CPAP O2 Flow Rate 2.0 09/25/19 09/25/19 09/25/19 09/25/19 12:00 12:00 12:41 13:00 Temp 98.2 98.2 Pulse 76 73 Resp 26 B/P (MAP) 139/76 (97) 129/71 (90) Pulse Ox 98 98 97 O2 Delivery Bi-pap BiPAP/CPAP Nasal Cannula BiPAP/CPAP O2 Flow Rate 2.0 09/25/19 09/25/19 09/25/19 09/25/19 13:41 14:00 15:00 15:38 Pulse 71 74 Resp 22 B/P (MAP) 140/76 (97) 140/74 (96) Pulse Ox 96 96 95 98 O2 Delivery Nasal Cannula Nasal Cannula Nasal Cannula BiPAP/CPAP O2 Flow Rate 2.0 2.0 2.0 09/25/19 09/25/19 09/25/19 09/25/19 16:00 16:00 17:00 17:39 Pulse 80 80 80 Resp 23 B/P (MAP) 142/77 (98) 150/82 (104) 160/81 Pulse Ox 100 100 O2 Delivery Nasal Cannula BiPAP/CPAP BiPAP/CPAP O2 Flow Rate 2.0 09/25/19 09/25/19 09/25/19 09/25/19 18:00 19:30 19:35 19:58 Pulse 98 Resp 22 B/P (MAP) Pulse Ox 100 95 100 96 O2 Delivery Nasal Cannula Room Air Nasal Cannula Room Air O2 Flow Rate 1.0 1.0 09/25/19 09/25/19 09/25/19 09/25/19 20:00 20:00 20:10 20:41 Temp 99.6 99.6 Pulse 88 95 Resp 24 20 B/P (MAP) 177/88 (117) 177/82 Pulse Ox 100 95 O2 Delivery Bi-pap BiPAP/CPAP Room Air 09/25/19 09/25/19 09/25/19 09/26/19 22:09 23:05 23:11 00:00 Temp 98.6 98.6 Pulse 86 Resp 22 24 B/P (MAP) 169/88 (115) Pulse Ox 95 98 96 100 O2 Delivery Room Air BiPAP/CPAP Room Air BiPAP/CPAP 09/26/19 09/26/19 09/26/19 09/26/19 04:00 04:18 05:36 07:31 Temp 99.0 99.0 Pulse 84 Resp 20 20 20 B/P (MAP) 158/83 (108) Pulse Ox 100 97 97 100 O2 Delivery Room Air Room Air Room Air BiPAP/CPAP 09/26/19 08:18 Temp 98.2 98.2 Pulse 80 Resp 20 B/P (MAP) 168/115 (132) Pulse Ox 100 O2 Delivery Nasal Cannula O2 Flow Rate 2.0 Intake and Output 09/25/19 09/25/19 09/26/19 15:00 23:00 07:00 Intake Total 500 ml 340 ml 300 ml Output Total 50 ml 100 ml Balance 450 ml 340 ml 200 ml Justicifation of Admission Dx: Justifications for Admission: Justification of Admission Dx: Yes BRANDO TRIANA MD Sep 26, 2019 08:57
[2019-09-26] MEDS: DICLOFENAC SODIUM 1% TOPICAL GEL 100GM TUBE. TP SCH ×2 (09:00→21:00)
[2019-09-26] MEDS: PANTOPRAZOLE 40 MG TABLET.DR. PO SCH (09:37)
[2019-09-26] MEDS: SEVELAMER CARBONATE 800 MG TABLET. PO SCH ×3 (09:37→16:31)
[2019-09-26] MEDS: FOLIC/VIT B COMP W-C (RENAL) TABLET. PO SCH (09:38)
[2019-09-26] MEDS: ONDANSETRON ODT 4 MG TAB.RAPDIS. PO PRN (09:38)
[2019-09-26] MEDS: CARVEDILOL 12.5 MG TABLET. PO SCH ×2 (09:38→16:31)
[2019-09-26] MEDS: amLODIPine BESYLATE 10 MG TABLET PO SCH (09:38)
[2019-09-26] MEDS: hydrALAZINE 25 MG TABLET PO SCH ×2 (09:38→21:10)
[2019-09-26] MEDS: ASPIRIN CHEWABLE 81 MG TABLET. PO SCH (09:39)
[2019-09-26] MEDS: levETIRAcetam 250 MG TABLET PO SCH ×2 (09:39→21:11)
--- NOTE | 2019-09-26 11:35 | PDOC ---
Renal-Progress Notes Subjective Notes Notes FEELING BETTER, LESS SOB History of Present Illness Hx of present illness STABLE Vitals Vitals Vital Signs Date Time Temp Pulse Resp B/P (MAP) Pulse Ox O2 Delivery O2 Flow Rate FiO2 09/26/19 10:32 18 Nasal Cannula 2.0 09/26/19 09:38 80 168/115 09/26/19 08:18 98.2 100 98.2 Weight Weight [ ] I.O. Intake and Output Intake and Output 09/26/19 06:59 Intake Total 1140 ml Output Total 150 ml Balance 990 ml Intake Oral 1140 ml Output Urine Total 150 ml # Bowel Movements 2 Labs Labs Laboratory Tests Test 09/26/19 04:45 Prothrombin Time 32.4 SEC (11.7-14.0) Prothromb Time International Ratio 3.1 (0.8-1.1) Sodium Level 139 mmol/L (136-145) Potassium Level 4.4 mmol/L (3.5-5.1) Chloride Level 99 mmol/L (98-107) Carbon Dioxide Level 32 mmol/L (21-32) Anion Gap 8 (6-14) Blood Urea Nitrogen 33 mg/dL (7-20) Creatinine 6.1 mg/dL (0.6-1.0) Estimated GFR (Cockcroft-Gault) 9.5 Glucose Level 155 mg/dL (70-99) Calcium Level 8.3 mg/dL (8.5-10.1) Phosphorus Level 5.3 mg/dL (2.6-4.7) Albumin 2.7 g/dL (3.4-5.0) Review of Systems Constitutional: yes: weakness, alert, oriented Ears/Nose/Throat: Yes: no symptom reported Eyes: Yes: no symptom reported Pulmonary: Yes dyspnea Cardiovascular: Yes no symptom reported Gastrointestional: Yes: no symptom reported Genitourinary: Yes: no symptom reported Musculoskeletal: Yes: muscle stiffness Psychiatric/Neurological: Yes: no symptom reported Endocrine: Yes: no symptom reported Physical Exam General Appearance: no apparent distress Skin: warm Respiratory: decreased breath sounds Heart: S1S2 Abdomen: soft, bowel sounds present Genitourinary: bladder flat Extremities: pulses present Neurology: alert Assessment Assessment IMP COVID POSITIVE ESRD CHF-ACUTE ON CHRONIC ANEMIA LEUCOCYTOSIS NON COMPLIANCE CHRONIC PAIN PLAN HD T[place]ORROW ARANESP ENC COMPLIANCE SUPPORTIVE CARE DICLOFENAC WILL FOLLOW ERVIN MARTINEZ MD Sep 26, 2019 11:35
[2019-09-26] MEDS: DICLOFENAC SODIUM 25 MG TABLET.DR PO SCH ×2 (12:49→21:11)
[2019-09-26] MEDS: traMADol 50 MG TABLET PO PRN ×2 (16:32→23:15)
[2019-09-26] MEDS: WARFARIN 4 MG TABLET. PO SCH (16:32)
--- NOTE | 2019-09-26 17:29 | NUR ---
SW following. Spoke with RN and reviewed chart. Spoke with Dr. Marie. Pt's discharge held until 09/27/2019 per 02 level dropping. SW to continue following. Pt will discharge home with resumption of out-patient dialysis.
[2019-09-26] MEDS ORDERED: busPIRone 5 MG TABLET. PO PRN (18:45)
[2019-09-27] VITALS (9 sets, daily range): BP systolic 145–189; BP diastolic 75–95
[2019-09-27] MEDS: traMADol 50 MG TABLET PO PRN ×4 (04:37→23:53)
[2019-09-27 07:13] LABS: BASO % 1 % (0-3); EOS # 1.2 x10^3/uL (0.0-0.7); EOS % 15 % (0-3); HEMATOCRIT 21.5 % (36.0-47.0); LYMPH # 0.3 x10^3/uL (1.0-4.8); LYMPH % 4 % (24-48); MEAN CORPUSCULAR HEMOGLOBIN 31 pg (25-35); MEAN CORPUSCULAR HGB CONC 33 g/dL (31-37); MEAN CORPUSCULAR VOLUME 94 fL (79-100); MONO # 0.8 x10^3/uL (0.0-1.1); MONO % 11 % (0-9); NEUT # 5.6 x10^3/uL (1.8-7.7); NEUT % 71 % (31-73); PLATELET COUNT 324 x10^3/uL (140-400); RED BLOOD COUNT 2.28 x10^6/uL (3.50-5.40); RED CELL DISTRIBUTION WIDTH 20.8 % (11.5-14.5); WHITE BLOOD COUNT 7.9 x10^3/uL (4.0-11.0)
[2019-09-27 07:18] LABS: PROTHROMBIN TIME PATIENT 25.3 SEC (11.7-14.0)
[2019-09-27 07:32] LABS: CALCIUM 7.4 mg/dL (8.5-10.1); CREATININE 8.1 mg/dL (0.6-1.0); GFR 6.9
--- NOTE | 2019-09-27 07:42 | PDOC ---
PROGRESS NOTES Chief Complaint Chief Complaint A/P: Shortness of breath - from fluid overload 2/2 missed dialysis sessions most likely, improved COVID 19 - with hypoxia and pneumonia, on warfarin for anticoagulation Acute hypoxic respiratory failure - 2/2 fluid overload and COVID 19 pneumonia Acute diastolic CHF exacerbation Hyperkalemia - 2/2 dialysis compliance difficulties Intractable back pain - with radiculopathy to bilateral lower extremities. She notes this is gout. She is upset being labeled as pain medication seeking Lower extremity pain - bilateral knees, ankles, states she has had extensive work-up at [facility] for neuropathy and vascular studies that were negative. End-stage renal disease secondary to diabetes mellitus, hypertension and nephrosclerosis - [facility] dialysis Anxiety - on home meds Seizures - on keppra Osteoarthritis - will try topical voltaren Diabetes - basal bolus plus regimen inpatient Hypertension - will cont meds Abnormal right lower lobe lung consolidation - had recent pneumonia at [facility] and thoracentesis x2. She states this is stable Pelvic fluid - no sign of abscess, though density could be consistent with debris/blood, states her abdominal pain is improved after IV fentanyl only Aortic atherosclerosis - likely 2/2 ESRD FEN - Renal diet PPX - warfarin FULL CODE Dispo - inpatient 2 [facility] History of Present Illness History of Present Illness Ms Wilder is a 34 yo F w/PMHx Anxiety, Arthritis, Diabetes-Type II, Hypertension, neuropathy, ESRD on HD (previously PD) who c/o shortness of breath and diffuse myalgias. Patient states that she has missed her last few dialysis treatments despite having scheduled transportation. Initially was in moderate distress on BiPAP with WBC 15 K. Improved after urgent dialysis She tells me she has gout in her left ankle currently. She denies any fever. She does indicate that she has a cough but it is been nonproductive. Patient rates pain in her body and an 8 out of 10. COVID-19 positive 09/25: During conversation today she had O2 saturations 96%. Requesting to go home to stay with her children and mother. I have advised her she must isolate herself from her family as they are not positive for at least 10 days from tomorrow and for 72 hours after her symptoms of shortness of breath and fevers have resolved per CDC guidelines. After I left the room she fell asleep and was noted to have O2 saturation of 84% which I confirmed and canceled discharge so that she may remain inpatient for repeat dialysis session and further monitoring. Overnight temp to 100.6 F. Hb 7 morning, tachycardic. K 6.8. Per nursing report she requests pain medication hourly overnight. Vitals Vitals Vital Signs Date Time Temp Pulse Resp B/P (MAP) Pulse Ox O2 Delivery O2 Flow Rate FiO2 09/27/19 05:37 98 Room Air 2.0 09/27/19 03:40 100.6 99 20 177/80 (112) 100.6 Physical Exam General: Alert, Oriented X3, Cooperative, moderate distress Heart: Regular rate Lungs: Clear Abdomen: Normal bowel sounds, Soft, No tenderness Extremities: No clubbing, No cyanosis Skin: No breakdown Labs LABS Laboratory Tests Test 09/27/19 05:50 White Blood Count 7.9 x10^3/uL (4.0-11.0) Red Blood Count 2.28 x10^6/uL (3.50-5.40) Hemoglobin 7.0 g/dL (12.0-15.5) Hematocrit 21.5 % (36.0-47.0) Mean Corpuscular Volume 94 fL (79-100) Mean Corpuscular Hemoglobin 31 pg (25-35) Mean Corpuscular Hemoglobin Concent 33 g/dL (31-37) Red Cell Distribution Width 20.8 % (11.5-14.5) Platelet Count 324 x10^3/uL (140-400) Neutrophils (%) (Auto) 71 % (31-73) Lymphocytes (%) (Auto) 4 % (24-48) Monocytes (%) (Auto) 11 % (0-9) Eosinophils (%) (Auto) 15 % (0-3) Basophils (%) (Auto) 1 % (0-3) Neutrophils # (Auto) 5.6 x10^3/uL (1.8-7.7) Lymphocytes # (Auto) 0.3 x10^3/uL (1.0-4.8) Monocytes # (Auto) 0.8 x10^3/uL (0.0-1.1) Eosinophils # (Auto) 1.2 x10^3/uL (0.0-0.7) Basophils # (Auto) 0.0 x10^3/uL (0.0-0.2) Prothrombin Time 25.3 SEC (11.7-14.0) Prothromb Time International Ratio 2.3 (0.8-1.1) Assessment and Plan Assessmemt and Plan Problems Medical Problems: (1) Respiratory failure Status: Acute Comment Review of Relevant I have reviewed the following items jamie (where applicable) has been applied. Labs Laboratory Tests Test 09/25/19 09:55 09/26/19 04:45 09/27/19 05:50 White Blood Count 10.1 x10^3/uL (4.0-11.0) 7.9 x10^3/uL (4.0-11.0) Red Blood Count 2.32 x10^6/uL (3.50-5.40) 2.28 x10^6/uL (3.50-5.40) Hemoglobin 7.1 g/dL (12.0-15.5) 7.0 g/dL (12.0-15.5) Hematocrit 21.7 % (36.0-47.0) 21.5 % (36.0-47.0) Mean Corpuscular Volume 94 fL (79-100) 94 fL (79-100) Mean Corpuscular Hemoglobin 31 pg (25-35) 31 pg (25-35) Mean Corpuscular Hemoglobin Concent 33 g/dL (31-37) 33 g/dL (31-37) Red Cell Distribution Width 21.3 % (11.5-14.5) 20.8 % (11.5-14.5) Platelet Count 380 x10^3/uL (140-400) 324 x10^3/uL (140-400) Neutrophils (%) (Auto) 63 % (31-73) 71 % (31-73) Lymphocytes (%) (Auto) 12 % (24-48) 4 % (24-48) Monocytes (%) (Auto) 9 % (0-9) 11 % (0-9) Eosinophils (%) (Auto) 15 % (0-3) 15 % (0-3) Basophils (%) (Auto) 1 % (0-3) 1 % (0-3) Neutrophils # (Auto) 6.4 x10^3/uL (1.8-7.7) 5.6 x10^3/uL (1.8-7.7) Lymphocytes # (Auto) 1.2 x10^3/uL (1.0-4.8) 0.3 x10^3/uL (1.0-4.8) Monocytes # (Auto) 0.9 x10^3/uL (0.0-1.1) 0.8 x10^3/uL (0.0-1.1) Eosinophils # (Auto) 1.5 x10^3/uL (0.0-0.7) 1.2 x10^3/uL (0.0-0.7) Basophils # (Auto) 0.1 x10^3/uL (0.0-0.2) 0.0 x10^3/uL (0.0-0.2) Prothrombin Time 38.2 SEC (11.7-14.0) 32.4 SEC (11.7-14.0) 25.3 SEC (11.7-14.0) Prothromb Time International Ratio 3.8 (0.8-1.1) 3.1 (0.8-1.1) 2.3 (0.8-1.1) Sodium Level 139 mmol/L (136-145) 139 mmol/L (136-145) Potassium Level 6.3 mmol/L (3.5-5.1) 4.4 mmol/L (3.5-5.1) Chloride Level 99 mmol/L (98-107) 99 mmol/L (98-107) Carbon Dioxide Level 24 mmol/L (21-32) 32 mmol/L (21-32) Anion Gap 16 (6-14) 8 (6-14) Blood Urea Nitrogen 80 mg/dL (7-20) 33 mg/dL (7-20) Creatinine 11.5 mg/dL (0.6-1.0) 6.1 mg/dL (0.6-1.0) Estimated GFR (Cockcroft-Gault) 4.6 9.5 Glucose Level 74 mg/dL (70-99) 155 mg/dL (70-99) Calcium Level 7.8 mg/dL (8.5-10.1) 8.3 mg/dL (8.5-10.1) Phosphorus Level 5.3 mg/dL (2.6-4.7) Albumin 2.7 g/dL (3.4-5.0) Laboratory Tests Test 09/27/19 05:50 White Blood Count 7.9 x10^3/uL (4.0-11.0) Red Blood Count 2.28 x10^6/uL (3.50-5.40) Hemoglobin 7.0 g/dL (12.0-15.5) Hematocrit 21.5 % (36.0-47.0) Mean Corpuscular Volume 94 fL (79-100) Mean Corpuscular Hemoglobin 31 pg (25-35) Mean Corpuscular Hemoglobin Concent 33 g/dL (31-37) Red Cell Distribution Width 20.8 % (11.5-14.5) Platelet Count 324 x10^3/uL (140-400) Neutrophils (%) (Auto) 71 % (31-73) Lymphocytes (%) (Auto) 4 % (24-48) Monocytes (%) (Auto) 11 % (0-9) Eosinophils (%) (Auto) 15 % (0-3) Basophils (%) (Auto) 1 % (0-3) Neutrophils # (Auto) 5.6 x10^3/uL (1.8-7.7) Lymphocytes # (Auto) 0.3 x10^3/uL (1.0-4.8) Monocytes # (Auto) 0.8 x10^3/uL (0.0-1.1) Eosinophils # (Auto) 1.2 x10^3/uL (0.0-0.7) Basophils # (Auto) 0.0 x10^3/uL (0.0-0.2) Prothrombin Time 25.3 SEC (11.7-14.0) Prothromb Time International Ratio 2.3 (0.8-1.1) Medications Current Medications Nitroglycerin (Nitro-Bid Oint) 1 inch 1X ONCE TP Last administered on 09/24/19at 22:19; Start 09/24/19 at 22:00; Stop 09/24/19 at 22:01; Status DC Morphine Sulfate (Morphine Sulfate) 4 mg 1X ONCE IV Last administered on 09/24/19at 22:19; Start 09/24/19 at 22:00; Stop 09/24/19 at 22:01; Status DC Lorazepam (Ativan Inj) 1 mg 1X ONCE IVP Last administered on 09/24/19 23:12; Start 09/24/19 at 23:00; Stop 09/24/19 at 23:04; Status DC Amlodipine Besylate (Norvasc) 10 mg DAILY PO Last administered on 09/26/19at 09:38; Start 09/25/19 at 09:00 Aspirin (Aspirin Chewable) 81 mg DAILY PO Last administered on 09/26/19at 09:39; Start 09/25/19 at 09:00 Bisacodyl (Dulcolax Supp) 10 mg PRN DAILY PRN [place] CONSTIPATION; Start 09/24/19 at 23:00 Docusate Sodium (Colace) 100 mg PRN BID PRN PO HARD STOOLS; Start 09/24/19 at 23:00 Vitamin B Complex/ Vitamin C (Wendy-Marvin) 1 tab DAILY PO Last administered on 09/26/19at 09:38; Start 09/25/19 at 09:00 Hydralazine HCl (Apresoline) 75 mg BID PO Last administered on 09/26/19at 21:10; Start 09/25/19 at 09:00 Acetaminophen/ Hydrocodone Bitart (Lortab 5/325) 1 tab PRN Q6HRS PRN PO MODERATE PAIN 4-6 Last administered on 09/26/19at 10:32; Start 09/24/19 at 23:00; Stop 09/26/19 at 15:41; Status DC Levetiracetam (Keppra) 375 mg BID PO Last administered on 09/26/19 21:11; Start 09/25/19 at 09:00 Lubiprostone (Amitiza) 24 mcg BIDWMEALS PO Last administered on 09/25/19at 17:38; Start 09/25/19 at 08:00 Ondansetron HCl (Zofran Odt) 4 mg PRN Q6HRS PRN PO NAUSEA/VOMITING 1ST CHOICE Last administered on 09/26/19at 09:38; Start 09/24/19 at 23:00 Sevelamer Carbonate (Renvela) 800 mg TIDWMEALS PO Last administered on 0at 16:31; Start 09/25/19 at 08:00 Warfarin Sodium (Coumadin) 4 mg DAILY PO ; Start 09/25/19 at 09:00; Status UNV Carvedilol (Coreg) 25 mg BIDWMEALS PO Last administered on 09/26/19 16:31; Start 09/25/19 at 08:00 Pantoprazole Sodium (Protonix) 40 mg DAILYAC PO Last administered on 09/26/19 09:37; Start 09/25/19 at 07:30 Diclofenac Sodium (Voltaren) 1 day BID TP Last administered on 09/26/19at 21:00; Start 09/25/19 at 09:00 Warfarin Sodium (Coumadin Per Physician) 1 each PRN DAILY PRN MC SEE COMMENTS L ast administered on 09/26/19 10:38; Start 09/24/19 at 23:15 Ondansetron HCl (Zofran) 4 mg PRN Q8HRS PRN IV NAUSEA/VOMITING 1ST CHOICE; Start 09/24/19 at 23:15; Stop 09/25/19 at 23:14; Status DC Insulin Human Regular (HumuLIN R VIAL) 10 unit 1X ONCE IV Last administered on 09/25/19at 01:06; Start 09/25/19 at 00:30; Stop 09/25/19 at 00:31; Status DC Dextrose (Dextrose 50%-Water Syringe) 25 gm 1X ONCE IV Last administered on 09/25/19at 01:02; Start 09/25/19 at 00:30; Stop 09/25/19 at 00:31; Status DC Calcium Gluconate 1000 mg/Sodium Chloride 110 ml @ 220 mls/hr 1X ONCE IV Last administered on 09/25/19 01:02; Start 09/25/19 at 00:30; Stop 09/25/19 at 00:59; Status DC Labetalol HCl (Normodyne Iv Push) 10 mg PRN Q2HR PRN IVP HYPERTENSION Last administered on 09/25/19 06:01; Start 09/25/19 at 06:00 Warfarin Sodium (Coumadin) 4 mg DAILY16 PO Last administered on 09/26/19at 16:3 2; Start 09/26/19 at 16:00 Warfarin Sodium (Coumadin - No Dose Today) 1 each 1X WARF ONCE MC ; Start 09/25/19 at 16:00; Stop 09/25/19 at 16:01; Status DC Darbepoetin Fredrick (ARANESP for DIALYSIS PTS) 60 mcg WEEKLYHS SQ ; Start 09/25/19 at 21:00 Sodium Chloride 1,000 ml @ 1,000 mls/hr Q1H PRN IV hypotension; Start 09/25/19 at 11:46; Stop 09/25/19 at 17:45; Status DC Sodium Chloride 1,000 ml @ 400 mls/hr Q2H30M PRN IV PATENCY; Start 09/25/19 at 11:46; Stop 09/25/19 at 23:45; Status DC Info (PHARMACY MONITORING -- do not chart) 1 each PRN DAILY PRN MC SEE COMMENTS; Start 09/25/19 at 12:00; Status UNV Info (PHARMACY MONITORING -- do not chart) 1 each PRN DAILY PRN MC SEE COMMENTS; Start 09/25/19 at 12:00 Hydromorphone HCl (Dilaudid) 0.5 mg 1X ONCE IV Last administered on 09/25/19at 19:35; Start 09/25/19 at 18:45; Stop 09/25/19 at 18:46; Status DC Diclofenac Sodium (Voltaren) 25 mg BID PO Last administered on 09/26/19at 21:11; Start 09/26/19 at 12:00 Tramadol HCl (Ultram) 50 mg PRN Q6HRS PRN PO MILD TO MODERATE PAIN Last administered on 09/27/19at 04:37; Start 09/26/19 at 15:45 Buspirone HCl (Buspar) 15 mg 1X PRN PO ANXIETY Last administered on 09/26/19at 21:11; Start 09/26/19 at 18:45 Active Scripts Active [place] 5-325 Tablet (Acetaminophen/Hydrocodone Bitart) 1 Each Tablet 1 Tab PO PRN Q6HRS PRN Ondansetron Odt (Ondansetron) 4 Mg Tab.rapdis 4 Mg PO PRN Q6HRS PRN 14 Days Dok (Docusate Sodium) 100 Mg Capsule 100 Mg PO PRN BID PRN 30 Days Bisacodyl 10 Mg Supp.rect 10 Mg [place] PRN DAILY PRN 14 Days Gabapentin 300 Mg Capsule 300 Mg PO DAILY08 30 Days Keppra (Levetiracetam) 250 Mg Tablet 375 Mg PO BID 30 Days Gabapentin 300 Mg Capsule 600 Mg PO HS 30 Days Hydralazine Hcl 50 Mg Tablet 75 Mg PO BID 30 Days Proair Hfa (Albuterol Sulfate) 8.5 Gm Hfa.aer.ad 2.5 Mg NEB PRN Q4HRS PRN 14 Days Amitiza (Lubiprostone) 24 Mcg Capsule 24 Mcg PO BIDWMEALS 30 Days [Diclofenac Sodium] 100 GM Gel..gram. 1 Day TP BID 30 Days Reported Coumadin (Warfarin Sodium) 4 Mg Tablet 1 Tab PO DAILY Renvela (Sevelamer Carbonate) 800 Mg Tablet 1 Tab PO TID 30 Days Wendy-Marvin Tablet (Folic Acid/Vitamin B Comp W-C) 0.8 Mg Tablet 1 Tab PO DAILY 30 Days Protonix (Pantoprazole Sodium) 20 Mg Tablet.dr 2 Tab PO DAILY Carvedilol 25 Mg Tablet 25 Mg PO BIDWMEALS Aspirin 81 Mg Tab.chew 1 Tab PO DAILY Amitriptyline Hcl 75 Mg Tablet 1 Tab PO QHS Amlodipine Besylate 10 Mg Tablet 10 Mg PO DAILY Vitals/I & O Vital Sign - Last 24 Hours 09/26/19 09/26/19 09/26/19 09/26/19 08:00 08:18 09:38 09:38 Temp 98.2 98.2 Pulse 80 80 80 Resp 20 B/P (MAP) 168/115 (132) 168/115 168/115 Pulse Ox 100 O2 Delivery Bi-pap Nasal Cannula O2 Flow Rate 2.0 2.0 09/26/19 09/26/19 09/26/19 09/26/19 09:38 10:00 10:32 11:32 Temp 98.5 98.5 Pulse 80 82 Resp 20 18 20 B/P (MAP) 168/115 177/76 (109) Pulse Ox 100 O2 Delivery Nasal Cannula Room Air O2 Flow Rate 2.0 09/26/19 09/26/19 09/26/19 09/26/19 12:18 15:00 16:31 16:32 Temp 98.5 98.6 98.5 98.6 Pulse 82 83 83 Resp 20 19 20 B/P (MAP) 177/76 (109) 148/79 (102) 148/79 Pulse Ox 100 96 O2 Delivery Nasal Cannula 09/26/19 09/26/19 09/26/19 09/26/19 17:32 19:35 20:00 21:10 Temp 98.0 98.0 Pulse 80 80 Resp 18 20 B/P (MAP) 156/78 (104) 156/78 Pulse Ox 100 O2 Delivery Nasal Cannula Nasal Cannula Room Air O2 Flow Rate 2.0 09/26/19 09/26/19 09/27/19 09/27/19 23:15 23:26 00:15 03:40 Temp 98.3 100.6 98.3 100.6 Pulse 86 99 Resp 20 20 B/P (MAP) 149/72 (97) 177/80 (112) Pulse Ox 100 98 96 98 O2 Delivery Room Air Nasal Cannula Room Air Nasal Cannula O2 Flow Rate 2.0 2.0 09/27/19 09/27/19 04:37 05:37 Pulse Ox 98 98 O2 Delivery Room Air Room Air O2 Flow Rate 2.0 2.0 Intake and Output 09/26/19 09/26/19 09/27/19 15:00 23:00 07:00 Intake Total 0 ml 520 ml Balance 0 ml 520 ml Justicifation of Admission Dx: Justifications for Admission: Justification of Admission Dx: Yes BRANDO TRIANA MD Sep 27, 2019 07:42
[2019-09-27 07:44] LABS: POTASSIUM 6.8 mmol/L (3.5-5.1)
[2019-09-27] MEDS ORDERED: SODIUM BICARB ADULT 8.4% 50 MEQ/50 ML DISP.SYRIN. IV ONE (08:00)
[2019-09-27] MEDS ORDERED: DEXTROSE 50% 25 GM / 50ML DISP.SYRIN. IV ONE ×3 (08:00→13:40)
[2019-09-27] MEDS ORDERED: INSULIN REGULAR 100 UNIT/ML 3ML VIAL. IV ONE (08:00)
[2019-09-27] MEDS ORDERED: SODIUM POLYSTYRENE SULFON/SORB 15 GM/60 ML ORAL.SUSP. PO ONE (08:00)
[2019-09-27] MEDS: DICLOFENAC SODIUM 25 MG TABLET.DR PO SCH ×3 (09:24→22:20)
[2019-09-27] MEDS: DICLOFENAC SODIUM 1% TOPICAL GEL 100GM TUBE. TP SCH ×2 (09:24→21:00)
[2019-09-27] MEDS: POLYETHYLENE GLYCOL 3350 17 GM PACKET. PO SCH (09:25)
[2019-09-27] MEDS: PSYLLIUM HUSK (SUGAR FREE) 1 PKT PACKET PO SCH (09:25)
[2019-09-27] MEDS: levETIRAcetam 250 MG TABLET PO SCH ×2 (09:26→22:18)
[2019-09-27] MEDS: hydrALAZINE 25 MG TABLET PO SCH ×2 (09:26→22:20)
[2019-09-27] MEDS: ASPIRIN CHEWABLE 81 MG TABLET. PO SCH (09:26)
[2019-09-27] MEDS: amLODIPine BESYLATE 10 MG TABLET PO SCH (09:27)
[2019-09-27] MEDS: ONDANSETRON ODT 4 MG TAB.RAPDIS. PO PRN ×2 (09:27→22:30)
[2019-09-27] MEDS: LUBIPROSTONE 24 MCG CAPSULE PO SCH ×3 (09:27→19:10)
[2019-09-27] MEDS: FOLIC/VIT B COMP W-C (RENAL) TABLET. PO SCH (09:27)
[2019-09-27] MEDS: SEVELAMER CARBONATE 800 MG TABLET. PO SCH ×3 (09:27→19:08)
[2019-09-27] MEDS: PANTOPRAZOLE 40 MG TABLET.DR. PO SCH (09:30)
[2019-09-27] MEDS: ZINC SULFATE 220 MG CAPSULE. PO SCH (09:30)
[2019-09-27] MEDS: CARVEDILOL 12.5 MG TABLET. PO SCH ×2 (09:35→19:10)
[2019-09-27] MEDS ORDERED: IV NORMAL SALINE 1000ML BAG 1,000 ML IV PRN ×2 (09:51)
[2019-09-27] MEDS ORDERED: ALBUMIN HUMAN 25% 200 ML IV PRN (10:00)
[2019-09-27] MEDS ORDERED: DIALYSIS PATIENT. MC PRN ×2 (10:00)
[2019-09-27] MEDS: diphenhydrAMINE HCL 25 MG CAPSULE PO PRN (11:03)
--- NOTE | 2019-09-27 12:07 | PDOC ---
Renal-Progress Notes Subjective Notes Notes NO NEW COMPLAINTS History of Present Illness Hx of present illness STABLE Vitals Vitals Vital Signs Date Time Temp Pulse Resp B/P (MAP) Pulse Ox O2 Delivery O2 Flow Rate FiO2 09/27/19 11:21 100.0 90 19 187/95 (125) 94 Nasal Cannula 2.0 100.0 Weight Weight [ ] I.O. Intake and Output Intake and Output 09/27/19 07:00 Intake Total 520 ml Balance 520 ml Intake Oral 520 ml # Voids 2 # Bowel Movements 1 Labs Labs Laboratory Tests Test 09/27/19 05:50 White Blood Count 7.9 x10^3/uL (4.0-11.0) Red Blood Count 2.28 x10^6/uL (3.50-5.40) Hemoglobin 7.0 g/dL (12.0-15.5) Hematocrit 21.5 % (36.0-47.0) Mean Corpuscular Volume 94 fL (79-100) Mean Corpuscular Hemoglobin 31 pg (25-35) Mean Corpuscular Hemoglobin Concent 33 g/dL (31-37) Red Cell Distribution Width 20.8 % (11.5-14.5) Platelet Count 324 x10^3/uL (140-400) Neutrophils (%) (Auto) 71 % (31-73) Lymphocytes (%) (Auto) 4 % (24-48) Monocytes (%) (Auto) 11 % (0-9) Eosinophils (%) (Auto) 15 % (0-3) Basophils (%) (Auto) 1 % (0-3) Neutrophils # (Auto) 5.6 x10^3/uL (1.8-7.7) Lymphocytes # (Auto) 0.3 x10^3/uL (1.0-4.8) Monocytes # (Auto) 0.8 x10^3/uL (0.0-1.1) Eosinophils # (Auto) 1.2 x10^3/uL (0.0-0.7) Basophils # (Auto) 0.0 x10^3/uL (0.0-0.2) Prothrombin Time 25.3 SEC (11.7-14.0) Prothromb Time International Ratio 2.3 (0.8-1.1) Sodium Level 139 mmol/L (136-145) Potassium Level 6.8 mmol/L (3.5-5.1) Chloride Level 99 mmol/L (98-107) Carbon Dioxide Level 28 mmol/L (21-32) Anion Gap 12 (6-14) Blood Urea Nitrogen 52 mg/dL (7-20) Creatinine 8.1 mg/dL (0.6-1.0) Estimated GFR (Cockcroft-Gault) 6.9 Glucose Level 198 mg/dL (70-99) Calcium Level 7.4 mg/dL (8.5-10.1) Review of Systems Constitutional: yes: weakness, alert, oriented Ears/Nose/Throat: Yes: no symptom reported Eyes: Yes: no symptom reported Pulmonary: Yes dyspnea Cardiovascular: Yes no symptom reported Gastrointestional: Yes: no symptom reported Genitourinary: Yes: no symptom reported Musculoskeletal: Yes: muscle stiffness Psychiatric/Neurological: Yes: no symptom reported Endocrine: Yes: no symptom reported Physical Exam General Appearance: no apparent distress Skin: warm Respiratory: decreased breath sounds Heart: S1S2 Abdomen: soft, bowel sounds present Genitourinary: bladder flat Extremities: pulses present Neurology: alert Assessment Assessment IMP COVID POSITIVE HYPERKALEMIA ESRD CHF-ACUTE ON CHRONIC ANEMIA LEUCOCYTOSIS NON COMPLIANCE CHRONIC PAIN PLAN HD TODAY UF TO [facility] COMPLIANCE SUPPORTIVE CARE DICLOFENAC WILL FOLLOW ERVIN MARTINEZ MD Sep 27, 2019 12:07
[2019-09-27] MEDS ORDERED: ACETAMINOPHEN 325 MG TABLET. PO PRN (12:30)
[2019-09-27] MEDS ORDERED: TRAM50TA PO (13:09)
[2019-09-27] MEDS ORDERED: DEXTROSE ORAL GEL 15 GM TUBE. PO ONE (13:40)
[2019-09-27] MEDS ORDERED: DEXTROSE ORAL GEL 15 GM TUBE. ONE (13:46)
--- NOTE | 2019-09-27 14:35 | PDOC3 ---
Discharge Summary Visit Information Date of Admission: Sep 24, 2019 Date of Discharge: Sep 27, 2019 Admitting Diagnosis: Acute hypoxic respiratory failure Final Diagnosis Problems Medical Problems: (1) Respiratory failure Status: Acute Brief Hospital Course Allergies Allergies Coded Allergies Type Severity Reaction Last Updated Verified No Known Drug Allergies 12/05/17 No Vital Signs Vital Signs Date Time Temp Pulse Resp B/P (MAP) Pulse Ox O2 Delivery O2 Flow Rate FiO2 09/27/19 11:21 100.0 90 19 187/95 (125) 94 Nasal Cannula 2.0 100.0 Lab Results Laboratory Tests Test 09/26/19 04:45 09/27/19 05:50 09/27/19 13:29 Prothrombin Time 32.4 SEC (11.7-14.0) 25.3 SEC (11.7-14.0) Prothromb Time International Ratio 3.1 (0.8-1.1) 2.3 (0.8-1.1) Sodium Level 139 mmol/L (136-145) 139 mmol/L (136-145) Potassium Level 4.4 mmol/L (3.5-5.1) 6.8 mmol/L (3.5-5.1) Chloride Level 99 mmol/L (98-107) 99 mmol/L (98-107) Carbon Dioxide Level 32 mmol/L (21-32) 28 mmol/L (21-32) Anion Gap 8 (6-14) 12 (6-14) Blood Urea Nitrogen 33 mg/dL (7-20) 52 mg/dL (7-20) Creatinine 6.1 mg/dL (0.6-1.0) 8.1 mg/dL (0.6-1.0) Estimated GFR (Cockcroft-Gault) 9.5 6.9 Glucose Level 155 mg/dL (70-99) 198 mg/dL (70-99) Calcium Level 8.3 mg/dL (8.5-10.1) 7.4 mg/dL (8.5-10.1) Phosphorus Level 5.3 mg/dL (2.6-4.7) Albumin 2.7 g/dL (3.4-5.0) White Blood Count 7.9 x10^3/uL (4.0-11.0) Red Blood Count 2.28 x10^6/uL (3.50-5.40) Hemoglobin 7.0 g/dL (12.0-15.5) Hematocrit 21.5 % (36.0-47.0) Mean Corpuscular Volume 94 fL (79-100) Mean Corpuscular Hemoglobin 31 pg (25-35) Mean Corpuscular Hemoglobin Concent 33 g/dL (31-37) Red Cell Distribution Width 20.8 % (11.5-14.5) Platelet Count 324 x10^3/uL (140-400) Neutrophils (%) (Auto) 71 % (31-73) Lymphocytes (%) (Auto) 4 % (24-48) Monocytes (%) (Auto) 11 % (0-9) Eosinophils (%) (Auto) 15 % (0-3) Basophils (%) (Auto) 1 % (0-3) Neutrophils # (Auto) 5.6 x10^3/uL (1.8-7.7) Lymphocytes # (Auto) 0.3 x10^3/uL (1.0-4.8) Monocytes # (Auto) 0.8 x10^3/uL (0.0-1.1) Eosinophils # (Auto) 1.2 x10^3/uL (0.0-0.7) Basophils # (Auto) 0.0 x10^3/uL (0.0-0.2) Glucose (Fingerstick) 34 mg/dL (70-99) Laboratory Tests Test 09/27/19 05:50 09/27/19 13:29 White Blood Count 7.9 x10^3/uL (4.0-11.0) Red Blood Count 2.28 x10^6/uL (3.50-5.40) Hemoglobin 7.0 g/dL (12.0-15.5) Hematocrit 21.5 % (36.0-47.0) Mean Corpuscular Volume 94 fL (79-100) Mean Corpuscular Hemoglobin 31 pg (25-35) Mean Corpuscular Hemoglobin Concent 33 g/dL (31-37) Red Cell Distribution Width 20.8 % (11.5-14.5) Platelet Count 324 x10^3/uL (140-400) Neutrophils (%) (Auto) 71 % (31-73) Lymphocytes (%) (Auto) 4 % (24-48) Monocytes (%) (Auto) 11 % (0-9) Eosinophils (%) (Auto) 15 % (0-3) Basophils (%) (Auto) 1 % (0-3) Neutrophils # (Auto) 5.6 x10^3/uL (1.8-7.7) Lymphocytes # (Auto) 0.3 x10^3/uL (1.0-4.8) Monocytes # (Auto) 0.8 x10^3/uL (0.0-1.1) Eosinophils # (Auto) 1.2 x10^3/uL (0.0-0.7) Basophils # (Auto) 0.0 x10^3/uL (0.0-0.2) Prothrombin Time 25.3 SEC (11.7-14.0) Prothromb Time International Ratio 2.3 (0.8-1.1) Sodium Level 139 mmol/L (136-145) Potassium Level 6.8 mmol/L (3.5-5.1) Chloride Level 99 mmol/L (98-107) Carbon Dioxide Level 28 mmol/L (21-32) Anion Gap 12 (6-14) Blood Urea Nitrogen 52 mg/dL (7-20) Creatinine 8.1 mg/dL (0.6-1.0) Estimated GFR (Cockcroft-Gault) 6.9 Glucose Level 198 mg/dL (70-99) Calcium Level 7.4 mg/dL (8.5-10.1) Glucose (Fingerstick) 34 mg/dL (70-99) Brief Hospital Course Ms Wilder is a 34 yo F w/PMHx Anxiety, Arthritis, Diabetes-Type II, Hypertension, neuropathy, ESRD on HD (previously PD) who c/o shortness of breath and diffuse myalgias. Patient states that she has missed her last few dialysis treatments despite having scheduled transportation. Initially was in moderate distress on BiPAP with WBC 15 K. Improved after urgent dialysis She tells me she has gout in her left ankle currently. She denies any fever. She does indicate that she has a cough but it is been nonproductive. Patient rates pain in her body and an 8 out of 10. COVID-19 positive 09/25: During conversation today she had O2 saturations 96%. Requesting to go home to stay with her children and mother. I have advised her she must isolate herself from her family as they are not positive for at least 10 days from tomorrow and for 72 hours after her symptoms of shortness of breath and fevers have resolved per CDC guidelines. After I left the room she fell asleep and was noted to have O2 saturation of 84% which I confirmed and canceled discharge so that she may remain inpatient for repeat dialysis session and further monitoring. Overnight temp to 100.6 F. Hb 7 morning, tachycardic. K 6.8. Per nursing report she requests pain medication hourly overnight. Had multiple BM after Kayexalate. She lost IV access after receiving her insulin for her hyperkalemia and glucose dropped to 34 which improved quickly after replacement of IV and IV D50 and oral glucose had no mental status changes at that time. She is going for dialysis and 1 unit of packed red blood cell transfusion prior to discharge she will follow-up outpatient at [facility] for her COVID-19 status and will self isolate at home quarantine. Consults: Nephrology Problem list: Shortness of breath - from fluid overload 2/2 missed dialysis sessions most likely, improved COVID 19 - with hypoxia and pneumonia, on warfarin for anticoagulation Acute hypoxic respiratory failure - 2/2 fluid overload and COVID 19 pneumonia Acute diastolic CHF exacerbation Hyperkalemia - 2/2 dialysis compliance difficulties Intractable back pain - with radiculopathy to bilateral lower extremities. She notes this is gout. She is upset being labeled as pain medication seeking Lower extremity pain - bilateral knees, ankles, states she has had extensive work-up at [facility] for neuropathy and vascular studies that were negative. End-stage renal disease secondary to diabetes mellitus, hypertension and nephrosclerosis - [facility] dialysis Anxiety - on home meds Seizures - on keppra Osteoarthritis - will try topical voltaren Diabetes - basal bolus plus regimen inpatient Hypertension - will cont meds Abnormal right lower lobe lung consolidation - had recent pneumonia at [facility] and thoracentesis x2. She states this is stable Pelvic fluid - no sign of abscess, though density could be consistent with debris/blood, states her abdominal pain is improved after IV fentanyl only Aortic atherosclerosis - likely 2/2 ESRD Greater than 30 minutes spent on d/c Discharge Information Condition at Discharge: Improved Follow Up: Weeks Disposition/Orders: D/C to Home Scheduled Amlodipine Besylate (Amlodipine Besylate) 10 Mg Tablet, 10 MG PO DAILY, (Rep orted) Entered as Reported by: BECKY MALAVE on 12/05/17 0800 Last Action: Continued on 09/24/192254 by BRANDO TRIANA MD Aspirin (Aspirin) 81 Mg Tab.chew, 1 TAB PO DAILY for blood thinner, #30 Ref 3 (Reported) Entered as Reported by: Radha Hollingsworth on 12/28/181155 Last Action: Continued on 09/24/192254 by BRANDO TRIANA MD Carvedilol (Carvedilol) 25 Mg Tablet, 25 MG PO BIDWMEALS for CARDIAC, (Reported) Entered as Reported by: Radha Hollingsworth on 12/28/181155 Last Action: Converted on 09/24/192254 by BRANDO TRIANA MD Folic Acid/Vitamin B Comp W-C (Wendy-Marvin Tablet) 0.8 Mg Tablet, 1 TAB PO DAILY for supplement for 30 Days, #30 Ref 0 (Reported) Entered as Reported by: Radha Hollingsworth on 12/28/181155 Last Action: Continued on 09/24/192254 by BRANDO TRIANA MD Gabapentin (Gabapentin) 300 Mg Capsule, 300 MG PO DAILY08 for pain for 30 Days, #30 Prescribed by: PHILLIP MENDOZA MD on 08/26/191721 Hydralazine Hcl (Hydralazine Hcl) 50 Mg Tablet, 75 MG PO BID for blood pressure for 30 Days, #90 Prescribed by: PHILLIP MENDOZA MD on 08/26/191721 Last Action: Continued on 09/24/192254 by BRANDO TRIANA MD Levetiracetam (Keppra) 250 Mg Tablet, 375 MG PO BID for seizure disorder for 30 Days, #90 Prescribed by: PHILLIP MENDOZA MD on 08/26/191721 Last Action: Continued on 09/24/192254 by BRANDO TRIANA MD Lubiprostone (Amitiza) 24 Mcg Capsule, 24 MCG PO BIDWMEALS for constipation for 30 Days, #60 Prescribed by: LAURA WARD MD on 08/20/191152 Last Action: Continued on 09/24/192254 by BRANDO TRIANA MD Pantoprazole Sodium (Protonix) 20 Mg Tablet.dr, 2 TAB PO DAILY for GERD, #30 (Reported) Entered as Reported by: Radha Hollingsworth on 12/28/181155 Last Action: Converted on 09/24/192254 by BRANDO TRIANA MD Sevelamer Carbonate (Renvela) 800 Mg Tablet, 1 TAB PO TID for renal function for 30 Days, #90 Ref 0 (Reported) Entered as Reported by: Radha Hollingsworth on 12/28/181155 Last Action: Continued on 09/24/192254 by BRANDO TRIANA MD Warfarin Sodium (Coumadin) 4 Mg Tablet, 1 TAB PO DAILY for anticoagulant therapy, #30 (Reported) Entered as Reported by: DONNA RINCON on 06/17/19 1637 Last Action: Continued on 09/24/192254 by BRANDO TRIANA MD [Diclofenac Sodium] 100 GM GEL..GRAM., 1 YUE TP BID for Pain for 30 Days, #60 Prescribed by: LAURA WARD MD on 08/20/191152 Last Action: Converted on 09/24/192254 by BRANDO TRIANA MD Scheduled PRN Albuterol Sulfate (Proair Hfa) 8.5 Gm Hfa.aer.ad, 2.5 MG NEB PRN Q4HRS PRN for SHORTNESS OF BREATH for 14 Days, #1 Prescribed by: PHILLIP MENDOZA MD on 08/26/191721 Bisacodyl (Bisacodyl) 10 Mg Supp.rect, 10 MG OR PRN DAILY PRN for CONSTIPATION for 14 Days, #30 Prescribed by: PHILLIP MENDOZA MD on 08/26/191721 Last Action: Continued on 09/24/192254 by BRANDO TRIANA MD Docusate Sodium (Dok) 100 Mg Capsule, 100 MG PO PRN BID PRN for HARD STOOLS for 30 Days, #60 Prescribed by: PHILLIP MENDOZA MD on 08/26/191721 Last Action: Continued on 09/24/192254 by BRANDO TRIANA MD Ondansetron (Ondansetron Odt) 4 Mg Tab.rapdis, 4 MG PO PRN Q6HRS PRN for NAUSEA/VOMITING for 14 Days, #60 Prescribed by: PHILLIP MENDOZA MD on 08/26/19 1722 Last Action: Continued on 09/24/192254 by BRANDO TRIANA MD Tramadol Hcl (Tramadol Hcl) 50 Mg Tablet, 50 MG PO PRN Q4HRS PRN for MILD TO MODERATE PAIN for 4 Days, #24 Prescribed by: BRANDO TRIANA MD on 09/27/19 1310 Discontinued Medications Amitriptyline Hcl (Amitriptyline Hcl) 75 Mg Tablet, 1 TAB PO QHS for antidepressant, #30 Ref 3 (Reported) Entered as Reported by: Radha Hollingsworth on 12/28/18 1156 Gabapentin (Gabapentin) 300 Mg Capsule, 600 MG PO HS for pain for 30 Days, #60 Prescribed by: PHILLIP MENDOZA MD on 08/26/19 1722 Hydrocodone/Apap 5-325 ([place] 5-325 Tablet) 1 Each Tablet, 1 TAB PO PRN Q6HRS PRN for PAIN, #8 Ref 0 Prescribed by: SEBASTIÁN DAMIAN D.O. on 08/31/19 1126 Last Action: Continued on 09/24/192254 by BRANDO TRIANA MD Justicifation of Admission Dx: Justifications for Admission: Justification of Admission Dx: Yes BRANDO TRIANA MD Sep 27, 2019 14:34
--- NOTE | 2019-09-27 14:56 | NUR ---
pt left at approx 1440 for dialysis.
--- NOTE | 2019-09-27 15:06 | CONS ---
DATE OF CONSULTATION: 09/27/2019 ATTENDING PHYSICIAN: Dr. Vásquez. REASON FOR CONSULTATION: The patient seen in pulmonary consultation at the request of Dr. Vásquez for increasing shortness of breath, abnormal x-ray. HISTORY OF PRESENT ILLNESS: The patient is a 34-year-old with comorbidities of diabetes, hypertension, end-stage renal disease, presented with increasing shortness of breath. The patient has been noncompliant with her regular hemodialysis treatments. She presented with moderate distress, on BiPAP initially. She had a chest x-ray, which I reviewed. There is a chronic right lower lobe, some pleural thickening along with increased vascular congestion in the lungs compatible with acute pulmonary edema. The patient is scheduled to undergo hemodialysis today. Dr. Marie has requested further input. She is also scheduled to be discharged home later on today after dialysis. PAST MEDICAL HISTORY: Remarkable for type 2 diabetes, hypertension, neuropathy, end-stage renal disease, anxiety, seizure disorder, on Keppra, osteoarthritis. PAST SURGICAL HISTORY: No recent major surgeries. In reviewing the current documentation, apparently the patient was initially scheduled to go home, but then she had O2 saturations dropped to 84%. She is due to undergo dialysis today. Overnight, she also had a temperature of 100.6. She denies any current chest pain. No pressure, no nausea, vomiting, diarrhea. REVIEW OF SYSTEMS: As indicated in history of present illness. Otherwise, a 10-point system was reviewed and negative. CURRENT MEDICATION: List was reviewed. SOCIAL HISTORY: She smokes marijuana. FAMILY HISTORY: Hypertension. PHYSICAL EXAMINATION: GENERAL: The patient was in no respiratory distress. VITAL SIGNS: Stable. O2 saturation currently on 2 liters 94%. HEENT: Eyes, the sclerae were nonicteric. NECK: Jugular venous distention was not elevated. No lymphadenopathy. CHEST: Full expansion. LUNGS: Coarse breath sounds, no wheezes. CARDIOVASCULAR: Regular rate and rhythm with S1, S2, no S3. ABDOMEN: Soft, nontender, nondistended. EXTREMITIES: No clubbing, cyanosis or edema. LABORATORY DATA: [id number] was positive. INR was 2.3. Hemoglobin and hematocrit chronically low. IMPRESSION: 1. Acute hypoxemic respiratory failure. 2. COVID-19 disease. 3. COVID-19 viral pneumonia. 4. End-stage renal disease, noncompliant. 5. Polysubstance use. 6. Hypertension. 7. Anxiety. 8. Diabetes. 9. Hyperparathyroidism. PLAN: I would recommend not to discharging the patient until she stabilizes. Continue hemodialysis per Nephrology. We will add steroids. Continue oxygen supplementation. Continue the patient on warfarin, this will take care of DVT prophylaxis. I do appreciate the privilege in sharing in the patient's care. ADIA GUZMAN MD DR: DWAIN/manasa JOB#: [id number] / [id number]
[2019-09-27] MEDS: methylPREDNISolone SOD SUCC PF 40 MG/ML VIAL. IV SCH ×2 (15:30→22:20)
--- NOTE | 2019-09-27 17:25 | NUR ---
DAMEON following. Spoke with RN and Dr. Marie. DAMEON reviewed chart. Pt had critical potassium levels and required a blood transfusion today per RN. DAMEON phoned and faxed clinicals to outpatient dialysis at [facility], (fax) and they will get pt a chair time at [facility] per pt being COVID positive. Pt uses Medicaid for transport to dialysis per her report. SW to follow. Addendum: 09/27/19 at 1730 by RAINA XIAO Blood sugar dropped to 34. Pt not ready for discharge. Pt may need 02 at discharge.
[2019-09-27] MEDS: WARFARIN 4 MG TABLET. PO SCH (19:10)
--- NOTE | 2019-09-27 23:04 | NUR ---
pt is covid+ and this study would be hindered by this virus and testing results would be inaccurate Addendum: 09/27/19 at 2312 by YANIV AGUAYO RT pt is covid+ and the Noc desat study would be hindered by this virus and testing results would be inaccurate
[2019-09-28 03:00] VITALS: BP 180/81
[2019-09-28] MEDS: traMADol 50 MG TABLET PO PRN ×3 (03:50→13:47)
[2019-09-28 03:52] LABS: BASO # 0.1 x10^3/uL (0.0-0.2); BASO % 1 % (0-3); EOS % 1 % (0-3); HEMATOCRIT 26.7 % (36.0-47.0); HEMOGLOBIN 8.9 g/dL (12.0-15.5); LYMPH # 0.2 x10^3/uL (1.0-4.8); LYMPH % 4 % (24-48); MEAN CORPUSCULAR HEMOGLOBIN 30 pg (25-35); MEAN CORPUSCULAR HGB CONC 33 g/dL (31-37); MEAN CORPUSCULAR VOLUME 91 fL (79-100); MONO # 0.2 x10^3/uL (0.0-1.1); MONO % 5 % (0-9); NEUT # 4.5 x10^3/uL (1.8-7.7); NEUT % 90 % (31-73); PLATELET COUNT 338 x10^3/uL (140-400); RED BLOOD COUNT 2.93 x10^6/uL (3.50-5.40); RED CELL DISTRIBUTION WIDTH 20.7 % (11.5-14.5)
[2019-09-28 04:01] LABS: PROTHROMBIN TIME PATIENT 21.6 SEC (11.7-14.0)
[2019-09-28 04:21] LABS: % BANDS 2 % (0-9); % LYMPHS 4 % (24-48); % SEGS 94 % (35-66); ANISOCYTOSIS MOD; HYPOCHROMIA SLIGHT; PLT ESTIMATE ADEQUATE (ADEQUATE); POIKILOCYTOSIS SLIGHT
[2019-09-28 04:38] LABS: ALBUMIN 2.8 g/dL (3.4-5.0); ALBUMIN/GLOBULIN RATIO 0.6 (1.0-1.7); CALCIUM 8.6 mg/dL (8.5-10.1); CREATININE 5.2 mg/dL (0.6-1.0); GFR 11.5; POTASSIUM 4.8 mmol/L (3.5-5.1); TOTAL BILIRUBIN 0.4 mg/dL (0.2-1.0); TOTAL PROTEIN 7.8 g/dL (6.4-8.2)
[2019-09-28] MEDS: PANTOPRAZOLE 40 MG TABLET.DR. PO SCH (06:08)
[2019-09-28] MEDS: methylPREDNISolone SOD SUCC PF 40 MG/ML VIAL. IV SCH ×3 (06:08→14:00)
[2019-09-28 07:00] VITALS: BP 179/79
--- NOTE | 2019-09-28 07:58 | PDOC ---
PROGRESS NOTES Chief Complaint Chief Complaint A/P: Shortness of breath - from fluid overload 2/2 missed dialysis sessions most likely, improved COVID 19 - with hypoxia and pneumonia, on warfarin for anticoagulation Acute hypoxic respiratory failure - 2/2 fluid overload and COVID 19 pneumonia Acute diastolic CHF exacerbation Hyperkalemia - 2/2 dialysis compliance difficulties Intractable back pain - with radiculopathy to bilateral lower extremities. She notes this is gout. She is upset being labeled as pain medication seeking Lower extremity pain - bilateral knees, ankles, states she has had extensive work-up at [facility] for neuropathy and vascular studies that were negative. End-stage renal disease secondary to diabetes mellitus, hypertension and nephrosclerosis - [facility] dialysis Anxiety - on home meds Seizures - on keppra Osteoarthritis - will try topical voltaren Diabetes - basal bolus plus regimen inpatient Hypertension - will cont meds Abnormal right lower lobe lung consolidation - had recent pneumonia at [facility] and thoracentesis x2. She states this is stable Pelvic fluid - no sign of abscess, though density could be consistent with debris/blood, states her abdominal pain is improved after IV fentanyl only Aortic atherosclerosis - likely 2/2 ESRD FEN - Renal diet PPX - warfarin FULL CODE Dispo - inpatient [facility] History of Present Illness History of Present Illness Ms Wilder is a 34 yo F w/PMHx Anxiety, Arthritis, Diabetes-Type II, Hypertension, neuropathy, ESRD on HD (previously PD) who c/o shortness of breath and diffuse myalgias. Patient states that she has missed her last few dialysis treatments despite having scheduled transportation. Initially was in moderate distress on BiPAP with WBC 15 K. Improved after urgent dialysis She tells me she has gout in her left ankle currently. She denies any fever. She does indicate that she has a cough but it is been nonproductive. Patient rates pain in her body and an 8 out of 10. COVID-19 positive 09/25: During conversation today she had O2 saturations 96%. Requesting to go home to stay with her children and mother. I have advised her she must isolate herself from her family as they are not positive for at least 10 days from tomorrow and for 72 hours after her symptoms of shortness of breath and fevers have resolved per CDC guidelines. After I left the room she fell asleep and was noted to have O2 saturation of 84% which I confirmed and canceled discharge so that she may remain inpatient for repeat dialysis session and further monitoring. 09/26: Overnight temp to 100.6 F. Hb 7 morning, tachycardic. K 6.8. Per nursing report she requests pain medication hourly overnight. Afebrile overnight. Hb 8.9. Ferritin 1757. Glucose improved. off O2. Her 2 children and mother have both tested positive. Vitals Vitals Vital Signs Date Time Temp Pulse Resp B/P (MAP) Pulse Ox O2 Delivery O2 Flow Rate FiO2 09/28/19 04:50 18 95 Nasal Cannula 2.0 09/28/19 03:00 99.5 91 180/81 (114) 99.5 Physical Exam General: Alert, Oriented X3, Cooperative, moderate distress Heart: Regular rate Lungs: Clear Abdomen: Normal bowel sounds, Soft, No tenderness Extremities: No clubbing, No cyanosis Skin: No breakdown Labs LABS Laboratory Tests Test 09/27/19 13:29 09/27/19 15:11 09/28/19 03:15 Glucose (Fingerstick) 34 mg/dL (70-99) 137 mg/dL (70-99) White Blood Count 5.0 x10^3/uL (4.0-11.0) Red Blood Count 2.93 x10^6/uL (3.50-5.40) Hemoglobin 8.9 g/dL (12.0-15.5) Hematocrit 26.7 % (36.0-47.0) Mean Corpuscular Volume 91 fL (79-100) Mean Corpuscular Hemoglobin 30 pg (25-35) Mean Corpuscular Hemoglobin Concent 33 g/dL (31-37) Red Cell Distribution Width 20.7 % (11.5-14.5) Platelet Count 338 x10^3/uL (140-400) Neutrophils (%) (Auto) 90 % (31-73) Lymphocytes (%) (Auto) 4 % (24-48) Monocytes (%) (Auto) 5 % (0-9) Eosinophils (%) (Auto) 1 % (0-3) Basophils (%) (Auto) 1 % (0-3) Neutrophils # (Auto) 4.5 x10^3/uL (1.8-7.7) Lymphocytes # (Auto) 0.2 x10^3/uL (1.0-4.8) Monocytes # (Auto) 0.2 x10^3/uL (0.0-1.1) Eosinophils # (Auto) 0.0 x10^3/uL (0.0-0.7) Basophils # (Auto) 0.1 x10^3/uL (0.0-0.2) Segmented Neutrophils % 94 % (35-66) Band Neutrophils % 2 % (0-9) Lymphocytes % 4 % (24-48) Platelet Estimate Adequate (ADEQUATE) Hypochromasia Slight Poikilocytosis Slight Anisocytosis Mod Prothrombin Time 21.6 SEC (11.7-14.0) Prothromb Time International Ratio 1.9 (0.8-1.1) D-Dimer (Melissa) 1.27 ug/mlFEU (0.00-0.50) Sodium Level 135 mmol/L (136-145) Potassium Level 4.8 mmol/L (3.5-5.1) Chloride Level 96 mmol/L (98-107) Carbon Dioxide Level 27 mmol/L (21-32) Anion Gap 12 (6-14) Blood Urea Nitrogen 28 mg/dL (7-20) Creatinine 5.2 mg/dL (0.6-1.0) Estimated GFR (Cockcroft-Gault) 11.5 BUN/Creatinine Ratio 5 (6-20) Glucose Level 327 mg/dL (70-99) Calcium Level 8.6 mg/dL (8.5-10.1) Ferritin 1757 ng/mL (8-252) Total Bilirubin 0.4 mg/dL (0.2-1.0) Aspartate Amino Transf (AST/SGOT) 28 U/L (15-37) Alanine Aminotransferase (ALT/SGPT) 21 U/L (14-59) Alkaline Phosphatase 206 U/L (46-116) Total Protein 7.8 g/dL (6.4-8.2) Albumin 2.8 g/dL (3.4-5.0) Albumin/Globulin Ratio 0.6 (1.0-1.7) Assessment and Plan Assessmemt and Plan Problems Medical Problems: (1) Respiratory failure Status: Acute Comment Review of Relevant I have reviewed the following items jamie (where applicable) has been applied. Labs Laboratory Tests Test 09/27/19 05:50 09/27/19 13:29 09/27/19 15:11 09/28/19 03:15 White Blood Count 7.9 x10^3/uL (4.0-11.0) 5.0 x10^3/uL (4.0-11.0) Red Blood Count 2.28 x10^6/uL (3.50-5.40) 2.93 x10^6/uL (3.50-5.40) Hemoglobin 7.0 g/dL (12.0-15.5) 8.9 g/dL (12.0-15.5) Hematocrit 21.5 % (36.0-47.0) 26.7 % (36.0-47.0) Mean Corpuscular Volume 94 fL (79-100) 91 fL (79-100) Mean Corpuscular Hemoglobin 31 pg (25-35) 30 pg (25-35) Mean Corpuscular Hemoglobin Concent 33 g/dL (31-37) 33 g/dL (31-37) Red Cell Distribution Width 20.8 % (11.5-14.5) 20.7 % (11.5-14.5) Platelet Count 324 x10^3/uL (140-400) 338 x10^3/uL (140-400) Neutrophils (%) (Auto) 71 % (31-73) 90 % (31-73) Lymphocytes (%) (Auto) 4 % (24-48) 4 % (24-48) Monocytes (%) (Auto) 11 % (0-9) 5 % (0-9) Eosinophils (%) (Auto) 15 % (0-3) 1 % (0-3) Basophils (%) (Auto) 1 % (0-3) 1 % (0-3) Neutrophils # (Auto) 5.6 x10^3/uL (1.8-7.7) 4.5 x10^3/uL (1.8-7.7) Lymphocytes # (Auto) 0.3 x10^3/uL (1.0-4.8) 0.2 x10^3/uL (1.0-4.8) Monocytes # (Auto) 0.8 x10^3/uL (0.0-1.1) 0.2 x10^3/uL (0.0-1.1) Eosinophils # (Auto) 1.2 x10^3/uL (0.0-0.7) 0.0 x10^3/uL (0.0-0.7) Basophils # (Auto) 0.0 x10^3/uL (0.0-0.2) 0.1 x10^3/uL (0.0-0.2) Prothrombin Time 25.3 SEC (11.7-14.0) 21.6 SEC (11.7-14.0) Prothromb Time International Ratio 2.3 (0.8-1.1) 1.9 (0.8-1.1) Sodium Level 139 mmol/L (136-145) 135 mmol/L (136-145) Potassium Level 6.8 mmol/L (3.5-5.1) 4.8 mmol/L (3.5-5.1) Chloride Level 99 mmol/L (98-107) 96 mmol/L (98-107) Carbon Dioxide Level 28 mmol/L (21-32) 27 mmol/L (21-32) Anion Gap 12 (6-14) 12 (6-14) Blood Urea Nitrogen 52 mg/dL (7-20) 28 mg/dL (7-20) Creatinine 8.1 mg/dL (0.6-1.0) 5.2 mg/dL (0.6-1.0) Estimated GFR (Cockcroft-Gault) 6.9 11.5 Glucose Level 198 mg/dL (70-99) 327 mg/dL (70-99) Calcium Level 7.4 mg/dL (8.5-10.1) 8.6 mg/dL (8.5-10.1) Glucose (Fingerstick) 34 mg/dL (70-99) 137 mg/dL (70-99) Segmented Neutrophils % 94 % (35-66) Band Neutrophils % 2 % (0-9) Lymphocytes % 4 % (24-48) Platelet Estimate Adequate (ADEQUATE) Hypochromasia Slight Poikilocytosis Slight Anisocytosis Mod D-Dimer (Melissa) 1.27 ug/mlFEU (0.00-0.50) BUN/Creatinine Ratio 5 (6-20) Ferritin 1757 ng/mL (8-252) Total Bilirubin 0.4 mg/dL (0.2-1.0) Aspartate Amino Transf (AST/SGOT) 28 U/L (15-37) Alanine Aminotransferase (ALT/SGPT) 21 U/L (14-59) Alkaline Phosphatase 206 U/L (46-116) Total Protein 7.8 g/dL (6.4-8.2) Albumin 2.8 g/dL (3.4-5.0) Albumin/Globulin Ratio 0.6 (1.0-1.7) Laboratory Tests Test 09/27/19 13:29 09/27/19 15:11 09/28/19 03:15 Glucose (Fingerstick) 34 mg/dL (70-99) 137 mg/dL (70-99) White Blood Count 5.0 x10^3/uL (4.0-11.0) Red Blood Count 2.93 x10^6/uL (3.50-5.40) Hemoglobin 8.9 g/dL (12.0-15.5) Hematocrit 26.7 % (36.0-47.0) Mean Corpuscular Volume 91 fL (79-100) Mean Corpuscular Hemoglobin 30 pg (25-35) Mean Corpuscular Hemoglobin Concent 33 g/dL (31-37) Red Cell Distribution Width 20.7 % (11.5-14.5) Platelet Count 338 x10^3/uL (140-400) Neutrophils (%) (Auto) 90 % (31-73) Lymphocytes (%) (Auto) 4 % (24-48) Monocytes (%) (Auto) 5 % (0-9) Eosinophils (%) (Auto) 1 % (0-3) Basophils (%) (Auto) 1 % (0-3) Neutrophils # (Auto) 4.5 x10^3/uL (1.8-7.7) Lymphocytes # (Auto) 0.2 x10^3/uL (1.0-4.8) Monocytes # (Auto) 0.2 x10^3/uL (0.0-1.1) Eosinophils # (Auto) 0.0 x10^3/uL (0.0-0.7) Basophils # (Auto) 0.1 x10^3/uL (0.0-0.2) Segmented Neutrophils % 94 % (35-66) Band Neutrophils % 2 % (0-9) Lymphocytes % 4 % (24-48) Platelet Estimate Adequate (ADEQUATE) Hypochromasia Slight Poikilocytosis Slight Anisocytosis Mod Prothrombin Time 21.6 SEC (11.7-14.0) Prothromb Time International Ratio 1.9 (0.8-1.1) D-Dimer (Melissa) 1.27 ug/mlFEU (0.00-0.50) Sodium Level 135 mmol/L (136-145) Potassium Level 4.8 mmol/L (3.5-5.1) Chloride Level 96 mmol/L (98-107) Carbon Dioxide Level 27 mmol/L (21-32) Anion Gap 12 (6-14) Blood Urea Nitrogen 28 mg/dL (7-20) Creatinine 5.2 mg/dL (0.6-1.0) Estimated GFR (Cockcroft-Gault) 11.5 BUN/Creatinine Ratio 5 (6-20) Glucose Level 327 mg/dL (70-99) Calcium Level 8.6 mg/dL (8.5-10.1) Ferritin 1757 ng/mL (8-252) Total Bilirubin 0.4 mg/dL (0.2-1.0) Aspartate Amino Transf (AST/SGOT) 28 U/L (15-37) Alanine Aminotransferase (ALT/SGPT) 21 U/L (14-59) Alkaline Phosphatase 206 U/L (46-116) Total Protein 7.8 g/dL (6.4-8.2) Albumin 2.8 g/dL (3.4-5.0) Albumin/Globulin Ratio 0.6 (1.0-1.7) Medications Current Medications Nitroglycerin (Nitro-Bid Oint) 1 inch 1X ONCE TP Last administered on 09/24/19at 22:19; Start 09/24/19 at 22:00; Stop 09/24/19 at 22:01; Status DC Morphine Sulfate (Morphine Sulfate) 4 mg 1X ONCE IV Last administered on 09/24/19at 22:19; Start 09/24/19 at 22:00; Stop 09/24/19 at 22:01; Status DC Lorazepam (Ativan Inj) 1 mg 1X ONCE IVP Last administered on 09/24/19at 23:12; Start 09/24/19 at 23:00; Stop 09/24/19 at 23:04; Status DC Amlodipine Besylate (Norvasc) 10 mg DAILY PO Last administered on 09/27/19 09:27; Start 09/25/19 at 09:00 Aspirin (Aspirin Chewable) 81 mg DAILY PO Last administered on 09/27/19 09:26; Start 09/25/19 at 09:00 Bisacodyl (Dulcolax Supp) 10 mg PRN DAILY PRN IA CONSTIPATION; Start 09/24/19 at 23:00 Docusate Sodium (Colace) 100 mg PRN BID PRN PO HARD STOOLS; Start 09/24/19 at 23:00 Vitamin B Complex/ Vitamin C (Wendy-Marvin) 1 tab DAILY PO Last administered on 09/27/19 09:27; Start 09/25/19 at 09:00 Hydralazine HCl (Apresoline) 75 mg BID PO Last administered on 09/27/19 22:20; Start 09/25/19 at 09:00 Acetaminophen/ Hydrocodone Bitart (Lortab 5/325) 1 tab PRN Q6HRS PRN PO MODERATE PAIN 4-6 Last administered on 09/26/19at 10:32; Start 09/24/19 at 23:00; Stop 09/26/19 at 15:41; Status DC Levetiracetam (Keppra) 375 mg BID PO Last administered on 09/27/19 22:18; Start 09/25/19 at 09:00 Lubiprostone (Amitiza) 24 mcg BIDWMEALS PO Last administered on 09/27/19 09:27; Start 09/25/19 at 08:00 Ondansetron HCl (Zofran Odt) 4 mg PRN Q6HRS PRN PO NAUSEA/VOMITING 1ST CHOICE Last administered on 09/27/19 22:30; Start 09/24/19 at 23:00 Sevelamer Carbonate (Renvela) 800 mg TIDWMEALS PO Last administered on 09/27/19 19:08; Start 09/25/19 at 08:00 Warfarin Sodium (Coumadin) 4 mg DAILY PO ; Start 09/25/19 at 09:00; Status UNV Carvedilol (Coreg) 25 mg BIDWMEALS PO Last administered on 09/27/19at 19:10; Start 09/25/19 at 08:00 Pantoprazole Sodium (Protonix) 40 mg DAILYAC PO Last administered on 09/28/19 06:08; Start 09/25/19 at 07:30 Diclofenac Sodium (Voltaren) 1 day BID TP Last administered on 09/27/19at 09:24; Start 09/25/19 at 09:00 Warfarin Sodium (Coumadin Per Physician) 1 each PRN DAILY PRN MC SEE COMMENTS Last administered on 09/27/19at 11:58; Start 09/24/19 at 23:15 Ondansetron HCl (Zofran) 4 mg PRN Q8HRS PRN IV NAUSEA/VOMITING 1ST CHOICE; Start 09/24/19 at 23:15; Stop 09/25/19 at 23:14; Status DC Insulin Human Regular (HumuLIN R VIAL) 10 unit 1X ONCE IV Last administered on 09/25/19at 01:06; Start 09/25/19 at 00:30; Stop 09/25/19 at 00:31; Status DC Dextrose (Dextrose 50%-Water Syringe) 25 gm 1X ONCE IV Last administered on 09/25/19at 01:02; Start 09/25/19 at 00:30; Stop 09/25/19 at 00:31; Status DC Calcium Gluconate 1000 mg/Sodium Chloride 110 ml @ 220 mls/hr 1X ONCE IV Last administered on 09/25/19at 01:02; Start 09/25/19 at 00:30; Stop 09/25/19 at 00:59; Status DC Labetalol HCl (Normodyne Iv Push) 10 mg PRN Q2HR PRN IVP HYPERTENSION Last administered on 09/25/19at 06:01; Start 09/25/19 at 06:00 Warfarin Sodium (Coumadin) 4 mg DAILY16 PO Last administered on 09/27/19at 19:10; Start 09/26/19 at 16:00 Warfarin Sodium (Coumadin - No Dose Today) 1 each 1X WARF ONCE MC ; Start 09/25/19 at 16:00; Stop 09/25/19 at 16:01; Status DC Darbepoetin Fredrick (ARANESP for DIALYSIS PTS) 60 mcg WEEKLYHS SQ ; Start 09/25/19 at 21:00 Sodium Chloride 1,000 ml @ 1,000 mls/hr Q1H PRN IV hypotension; Start 09/25/19 at 11:46; Stop 09/25/19 at 17:45; Status DC Sodium Chloride 1,000 ml @ 400 mls/hr Q2H30M PRN IV PATENCY; Start 09/25/19 at 11:46; Stop 09/25/19 at 23:45; Status DC Info (PHARMACY MONITORING -- do not chart) 1 each PRN DAILY PRN MC SEE COMMENTS; Start 09/25/19 at 12:00; Status UNV Info (PHARMACY MONITORING -- do not chart) 1 each PRN DAILY PRN MC SEE COMMENTS; Start 09/25/19 at 12:00; Stop 09/27/19 at 11:49; Status DC Hydromorphone HCl (Dilaudid) 0.5 mg 1X ONCE IV Last administered on 09/25/19at 19:35; Start 09/25/19 at 18:45; Stop 09/25/19 at 18:46; Status DC Diclofenac Sodium (Voltaren) 25 mg BID PO Last administered on 09/27/19at 21:00; Start 09/26/19 at 12:00 Tramadol HCl (Ultram) 50 mg PRN Q6HRS PRN PO MILD TO MODERATE PAIN Last administered on 09/27/19at 19:10; Start 09/26/19 at 15:45; Stop 09/27/19 at 23:50; Status DC Buspirone HCl (Buspar) 15 mg 1X PRN PO ANXIETY Last administered on 09/26/19at 21:11; Start 09/26/19 at 18:45 Zinc Sulfate (Orazinc) 220 mg DAILY PO Last administered on 09/27/19at 09:30; Start 09/27/19 at 09:00 Sodium Bicarbonate (Sodium Bicarb Adult 8.4% Syr) 50 meq 1X ONCE IV Last administered on 09/27/19at 10:26; Start 09/27/19 at 08:00; Stop 09/27/19 at 08:01; Status DC Dextrose (Dextrose 50%-Water Syringe) 25 gm 1X ONCE IV Last administered on 09/27/19at 10:26; Start 09/27/19 at 08:00; Stop 09/27/19 at 08:01; Status DC Insulin Human Regular (HumuLIN R VIAL) 10 unit 1X ONCE IV Last administered on 09/27/19at 08:00; Start 09/27/19 at 08:00; Stop 09/27/19 at 08:01; Status DC Sodium Polystyrene Sulfonate (Kayexalate) 30 gm 1X ONCE PO Last administered on 09/27/19at 09:25; Start 09/27/19 at 08:00; Stop 09/27/19 at 08:01; Status DC Polyethylene Glycol (miraLAX PACKET) 17 gm DAILY PO Last administered on 09/27/19at 09:25; Start 09/27/19 at 09:00 Psyllium Hydrophilic Mucilloid (Metamucil Fiber Packet) 1 pkt DAILY PO Last administered on 09/27/19at 09:25; Start 09/27/19 at 09:00 Sodium Chloride 1,000 ml @ 1,000 mls/hr Q1H PRN IV hypotension; Start 09/27/19 at 09:51; Stop 09/27/19 at 15:50; Status DC Albumin Human 200 ml @ 200 mls/hr 1X PRN PRN IV Hypotension; Start 09/27/19 at 10:00; Stop 09/27/19 at 15:59; Status DC Sodium Chloride 1,000 ml @ 400 mls/hr Q2H30M PRN IV PATENCY; Start 09/27/19 at 09:51; Stop 09/27/19 at 21:50; Status DC Info (PHARMACY MONITORING -- do not chart) 1 each PRN DAILY PRN MC SEE COMMENTS; Start 09/27/19 at 10:00 Info (PHARMACY MONITORING -- do not chart) 1 each PRN DAILY PRN MC SEE COMMENTS; Start 09/27/19 at 10:00; Status UNV Diphenhydramine HCl (Benadryl) 50 mg PRN Q12HRS PRN PO ITCHING Last administered on 09/27/19at 11:03; Start 09/27/19 at 11:00 Acetaminophen (Tylenol) 650 mg PRN Q6HRS PRN PO pain/temp; Start 09/27/19 at 12:30 Dextrose (Dextrose 50%-Water Syringe) 25 gm STK-MED ONCE IV ; Start 09/27/19 at 13:39; Stop 09/27/19 at 13:39; Status DC Glucose (Insta-Glucose) 15 gm STK-MED ONCE .ROUTE ; Start 7/23/20 at 13:46; Stop 09/27/19 at 13:47; Status DC Methylprednisolone Sodium Succinate (SOLU-Medrol 40MG VIAL) 40 mg Q8HRS IV Last administered on 09/28/19at 06:08; Start 09/27/19 at 15:30 Dextrose (Dextrose 50%-Water Syringe) 25 gm 1X ONCE IV Last administered on 09/27/19at 15:35; Start 09/27/19 at 13:40; Stop 09/27/19 at 15:12; Status DC Glucose (Insta-Glucose) 15 gm 1X ONCE PO Last administered on 09/27/19at 15:35; Start 09/27/19 at 13:40; Stop 09/27/19 at 15:12; Status DC Tramadol HCl (Ultram) 50 mg PRN Q4HRS PRN PO PAIN Last administered on 09/28/19at 03:50; Start 09/28/19 at 00:00 Active Scripts Active Tramadol Hcl 50 Mg Tablet 50 Mg PO PRN Q4HRS PRN 4 Days Ondansetron Odt (Ondansetron) 4 Mg Tab.rapdis 4 Mg PO PRN Q6HRS PRN 14 Days Dok (Docusate Sodium) 100 Mg Capsule 100 Mg PO PRN BID PRN 30 Days Bisacodyl 10 Mg Supp.rect 10 Mg IA PRN DAILY PRN 14 Days Gabapentin 300 Mg Capsule 300 Mg PO DAILY08 30 Days Keppra (Levetiracetam) 250 Mg Tablet 375 Mg PO BID 30 Days Hydralazine Hcl 50 Mg Tablet 75 Mg PO BID 30 Days Proair Hfa (Albuterol Sulfate) 8.5 Gm Hfa.aer.ad 2.5 Mg NEB PRN Q4HRS PRN 14 Days Amitiza (Lubiprostone) 24 Mcg Capsule 24 Mcg PO BIDWMEALS 30 Days [Diclofenac Sodium] 100 GM Gel..gram. 1 Day TP BID 30 Days Reported Coumadin (Warfarin Sodium) 4 Mg Tablet 1 Tab PO DAILY Renvela (Sevelamer Carbonate) 800 Mg Tablet 1 Tab PO TID 30 Days Wendy-Marvin Tablet (Folic Acid/Vitamin B Comp W-C) 0.8 Mg Tablet 1 Tab PO DAILY 30 Days Protonix (Pantoprazole Sodium) 20 Mg Tablet.dr 2 Tab PO DAILY Carvedilol 25 Mg Tablet 25 Mg PO BIDWMEALS Aspirin 81 Mg Tab.chew 1 Tab PO DAILY Amlodipine Besylate 10 Mg Tablet 10 Mg PO DAILY Vitals/I & O Vital Sign - Last 24 Hours 09/27/19 09/27/19 09/27/19 09/27/19 08:00 08:00 09:26 09:27 Pulse 73 73 B/P (MAP) 174/88 174/88 O2 Delivery Nasal Cannula O2 Flow Rate 2.0 2.0 09/27/19 09/27/19 09/27/19 09/27/19 09:35 10:19 11:19 11:21 Temp 100.0 100.0 Pulse 73 90 Resp 20 20 19 B/P (MAP) 174/88 187/95 (125) Pulse Ox 97 94 94 O2 Delivery Nasal Cannula Nasal Cannula Nasal Cannula O2 Flow Rate 2.0 2.0 2.0 09/27/19 09/27/19 09/27/19 09/27/19 13:40 15:49 16:13 16:59 Temp 96.0 96.0 96.8 96.0 96.0 96.8 Pulse 90 73 80 81 Resp 18 24 B/P (MAP) 150/80 (103) 145/75 160/85 182/91 Pulse Ox 94 O2 Delivery Nasal Cannula O2 Flow Rate 2.0 09/27/19 09/27/19 09/27/19 09/27/19 19:00 19:10 19:10 20:00 Pulse 88 81 Resp 18 16 B/P (MAP) 189/91 (123) 150/80 Pulse Ox 95 94 O2 Delivery Nasal Cannula O2 Flow Rate 2.0 2.0 09/27/19 09/27/19 09/27/19 09/27/19 20:00 20:10 22:20 22:52 Temp 99.1 99.1 Pulse 86 89 Resp 16 18 B/P (MAP) 193/83 177/80 (112) Pulse Ox 94 95 O2 Delivery Nasal Cannula Nasal Cannula Nasal Cannula O2 Flow Rate 2.0 2.0 2.0 09/27/19 09/28/19 09/28/19 09/28/19 23:53 00:54 03:00 03:50 Temp 99.5 99.5 Pulse 91 Resp 16 16 18 20 B/P (MAP) 180/81 (114) Pulse Ox 95 95 95 95 O2 Delivery Nasal Cannula Nasal Cannula Nasal Cannula Nasal Cannula O2 Flow Rate 2.0 2.0 2.0 2.0 09/28/19 04:50 Resp 18 Pulse Ox 95 O2 Delivery Nasal Cannula O2 Flow Rate 2.0 Intake and Output 09/27/19 09/27/19 09/28/19 15:00 23:00 07:00 Output Total 0 ml Balance 0 ml Justicifation of Admission Dx: Justifications for Admission: Justification of Admission Dx: Yes BRANDO TRIANA MD Sep 28, 2019 07:58
[2019-09-28] MEDS: SEVELAMER CARBONATE 800 MG TABLET. PO SCH ×2 (08:10→13:46)
[2019-09-28] MEDS: ZINC SULFATE 220 MG CAPSULE. PO SCH (08:10)
[2019-09-28] MEDS: PSYLLIUM HUSK (SUGAR FREE) 1 PKT PACKET PO SCH (08:10)
[2019-09-28] MEDS: LUBIPROSTONE 24 MCG CAPSULE PO SCH (08:10)
[2019-09-28] MEDS: POLYETHYLENE GLYCOL 3350 17 GM PACKET. PO SCH (08:10)
[2019-09-28] MEDS: ONDANSETRON ODT 4 MG TAB.RAPDIS. PO PRN (08:11)
[2019-09-28] MEDS: amLODIPine BESYLATE 10 MG TABLET PO SCH (08:11)
[2019-09-28] MEDS: diphenhydrAMINE HCL 25 MG CAPSULE PO PRN (08:11)
[2019-09-28] MEDS: DICLOFENAC SODIUM 25 MG TABLET.DR PO SCH (08:12)
[2019-09-28] MEDS: levETIRAcetam 250 MG TABLET PO SCH (08:15)
[2019-09-28] MEDS: ASPIRIN CHEWABLE 81 MG TABLET. PO SCH (08:15)
[2019-09-28] MEDS: CARVEDILOL 12.5 MG TABLET. PO SCH (08:15)
[2019-09-28] MEDS: hydrALAZINE 25 MG TABLET PO SCH (08:16)
[2019-09-28] MEDS: DICLOFENAC SODIUM 1% TOPICAL GEL 100GM TUBE. TP SCH (08:17)
[2019-09-28] MEDS: FOLIC/VIT B COMP W-C (RENAL) TABLET. PO SCH (08:17)
[2019-09-28 11:00] VITALS: BP 151/72
--- NOTE | 2019-09-28 11:53 | PDOC ---
Renal-Progress Notes Subjective Notes Notes NO NEW COMPLAINTS History of Present Illness Hx of present illness STABLE Vitals Vitals Vital Signs Date Time Temp Pulse Resp B/P (MAP) Pulse Ox O2 Delivery O2 Flow Rate FiO2 09/28/19 11:00 97.9 76 151/72 (98) 94 Room Air 97.9 09/28/19 09:11 2.0 09/28/19 04:50 18 Weight Weight [ ] I.O. Intake and Output Intake and Output 09/28/19 07:00 Output Total 0 ml Balance 0 ml Output Urine Total 0 ml # Bowel Movements 1 Labs Labs Laboratory Tests Test 09/27/19 13:29 09/27/19 15:11 09/28/19 03:15 Glucose (Fingerstick) 34 mg/dL (70-99) 137 mg/dL (70-99) White Blood Count 5.0 x10^3/uL (4.0-11.0) Red Blood Count 2.93 x10^6/uL (3.50-5.40) Hemoglobin 8.9 g/dL (12.0-15.5) Hematocrit 26.7 % (36.0-47.0) Mean Corpuscular Volume 91 fL (79-100) Mean Corpuscular Hemoglobin 30 pg (25-35) Mean Corpuscular Hemoglobin Concent 33 g/dL (31-37) Red Cell Distribution Width 20.7 % (11.5-14.5) Platelet Count 338 x10^3/uL (140-400) Neutrophils (%) (Auto) 90 % (31-73) Lymphocytes (%) (Auto) 4 % (24-48) Monocytes (%) (Auto) 5 % (0-9) Eosinophils (%) (Auto) 1 % (0-3) Basophils (%) (Auto) 1 % (0-3) Neutrophils # (Auto) 4.5 x10^3/uL (1.8-7.7) Lymphocytes # (Auto) 0.2 x10^3/uL (1.0-4.8) Monocytes # (Auto) 0.2 x10^3/uL (0.0-1.1) Eosinophils # (Auto) 0.0 x10^3/uL (0.0-0.7) Basophils # (Auto) 0.1 x10^3/uL (0.0-0.2) Segmented Neutrophils % 94 % (35-66) Band Neutrophils % 2 % (0-9) Lymphocytes % 4 % (24-48) Platelet Estimate Adequate (ADEQUATE) Hypochromasia Slight Poikilocytosis Slight Anisocytosis Mod Prothrombin Time 21.6 SEC (11.7-14.0) Prothromb Time International Ratio 1.9 (0.8-1.1) D-Dimer (Melissa) 1.27 ug/mlFEU (0.00-0.50) Sodium Level 135 mmol/L (136-145) Potassium Level 4.8 mmol/L (3.5-5.1) Chloride Level 96 mmol/L (98-107) Carbon Dioxide Level 27 mmol/L (21-32) Anion Gap 12 (6-14) Blood Urea Nitrogen 28 mg/dL (7-20) Creatinine 5.2 mg/dL (0.6-1.0) Estimated GFR (Cockcroft-Gault) 11.5 BUN/Creatinine Ratio 5 (6-20) Glucose Level 327 mg/dL (70-99) Calcium Level 8.6 mg/dL (8.5-10.1) Ferritin 1757 ng/mL (8-252) Total Bilirubin 0.4 mg/dL (0.2-1.0) Aspartate Amino Transf (AST/SGOT) 28 U/L (15-37) Alanine Aminotransferase (ALT/SGPT) 21 U/L (14-59) Alkaline Phosphatase 206 U/L (46-116) Total Protein 7.8 g/dL (6.4-8.2) Albumin 2.8 g/dL (3.4-5.0) Albumin/Globulin Ratio 0.6 (1.0-1.7) Review of Systems Constitutional: yes: weakness, alert, oriented Ears/Nose/Throat: Yes: no symptom reported Eyes: Yes: no symptom reported Pulmonary: Yes dyspnea Cardiovascular: Yes no symptom reported Gastrointestional: Yes: no symptom reported Genitourinary: Yes: no symptom reported Musculoskeletal: Yes: muscle stiffness Psychiatric/Neurological: Yes: no symptom reported Endocrine: Yes: no symptom reported Physical Exam General Appearance: no apparent distress Skin: warm Respiratory: decreased breath sounds Heart: S1S2 Abdomen: soft, bowel sounds present Genitourinary: bladder flat Extremities: pulses present Neurology: alert Assessment Assessment IMP COVID POSITIVE HYPERKALEMIA ESRD CHF-ACUTE ON CHRONIC ANEMIA LEUCOCYTOSIS NON COMPLIANCE CHRONIC PAIN PLAN HD TOMORROW DONNA ENC COMPLIANCE SUPPORTIVE CARE DICLOFENAC WILL FOLLOW ERVIN MARTINEZ MD Sep 28, 2019 11:53
--- NOTE | 2019-09-28 13:41 | PDOC ---
PULMONARY PROGRESS NOTES Subjective NO SOA Vitals Vital Signs Date Time Temp Pulse Resp B/P (MAP) Pulse Ox O2 Delivery O2 Flow Rate FiO2 09/28/19 11:00 97.9 76 151/72 (98) 94 Room Air 97.9 09/28/19 09:11 2.0 09/28/19 04:50 18 General: Alert, No acute distress Lungs: Clear Cardiovascular: S1 Abdomen: Soft Extremities: No Edema Labs Laboratory Tests Test 09/27/19 05:50 09/27/19 13:29 09/27/19 15:11 09/28/19 03:15 White Blood Count 7.9 x10^3/uL (4.0-11.0) 5.0 x10^3/uL (4.0-11.0) Red Blood Count 2.28 x10^6/uL (3.50-5.40) 2.93 x10^6/uL (3.50-5.40) Hemoglobin 7.0 g/dL (12.0-15.5) 8.9 g/dL (12.0-15.5) Hematocrit 21.5 % (36.0-47.0) 26.7 % (36.0-47.0) Mean Corpuscular Volume 94 fL (79-100) 91 fL (79-100) Mean Corpuscular Hemoglobin 31 pg (25-35) 30 pg (25-35) Mean Corpuscular Hemoglobin Concent 33 g/dL (31-37) 33 g/dL (31-37) Red Cell Distribution Width 20.8 % (11.5-14.5) 20.7 % (11.5-14.5) Platelet Count 324 x10^3/uL (140-400) 338 x10^3/uL (140-400) Neutrophils (%) (Auto) 71 % (31-73) 90 % (31-73) Lymphocytes (%) (Auto) 4 % (24-48) 4 % (24-48) Monocytes (%) (Auto) 11 % (0-9) 5 % (0-9) Eosinophils (%) (Auto) 15 % (0-3) 1 % (0-3) Basophils (%) (Auto) 1 % (0-3) 1 % (0-3) Neutrophils # (Auto) 5.6 x10^3/uL (1.8-7.7) 4.5 x10^3/uL (1.8-7.7) Lymphocytes # (Auto) 0.3 x10^3/uL (1.0-4.8) 0.2 x10^3/uL (1.0-4.8) Monocytes # (Auto) 0.8 x10^3/uL (0.0-1.1) 0.2 x10^3/uL (0.0-1.1) Eosinophils # (Auto) 1.2 x10^3/uL (0.0-0.7) 0.0 x10^3/uL (0.0-0.7) Basophils # (Auto) 0.0 x10^3/uL (0.0-0.2) 0.1 x10^3/uL (0.0-0.2) Prothrombin Time 25.3 SEC (11.7-14.0) 21.6 SEC (11.7-14.0) Prothromb Time International Ratio 2.3 (0.8-1.1) 1.9 (0.8-1.1) Sodium Level 139 mmol/L (136-145) 135 mmol/L (136-145) Potassium Level 6.8 mmol/L (3.5-5.1) 4.8 mmol/L (3.5-5.1) Chloride Level 99 mmol/L (98-107) 96 mmol/L (98-107) Carbon Dioxide Level 28 mmol/L (21-32) 27 mmol/L (21-32) Anion Gap 12 (6-14) 12 (6-14) Blood Urea Nitrogen 52 mg/dL (7-20) 28 mg/dL (7-20) Creatinine 8.1 mg/dL (0.6-1.0) 5.2 mg/dL (0.6-1.0) Estimated GFR (Cockcroft-Gault) 6.9 11.5 Glucose Level 198 mg/dL (70-99) 327 mg/dL (70-99) Calcium Level 7.4 mg/dL (8.5-10.1) 8.6 mg/dL (8.5-10.1) Glucose (Fingerstick) 34 mg/dL (70-99) 137 mg/dL (70-99) Segmented Neutrophils % 94 % (35-66) Band Neutrophils % 2 % (0-9) Lymphocytes % 4 % (24-48) Platelet Estimate Adequate (ADEQUATE) Hypochromasia Slight Poikilocytosis Slight Anisocytosis Mod D-Dimer (Melissa) 1.27 ug/mlFEU (0.00-0.50) BUN/Creatinine Ratio 5 (6-20) Ferritin 1757 ng/mL (8-252) Total Bilirubin 0.4 mg/dL (0.2-1.0) Aspartate Amino Transf (AST/SGOT) 28 U/L (15-37) Alanine Aminotransferase (ALT/SGPT) 21 U/L (14-59) Alkaline Phosphatase 206 U/L (46-116) Total Protein 7.8 g/dL (6.4-8.2) Albumin 2.8 g/dL (3.4-5.0) Albumin/Globulin Ratio 0.6 (1.0-1.7) Laboratory Tests Test 09/27/19 15:11 09/28/19 03:15 Glucose (Fingerstick) 137 mg/dL (70-99) White Blood Count 5.0 x10^3/uL (4.0-11.0) Red Blood Count 2.93 x10^6/uL (3.50-5.40) Hemoglobin 8.9 g/dL (12.0-15.5) Hematocrit 26.7 % (36.0-47.0) Mean Corpuscular Volume 91 fL (79-100) Mean Corpuscular Hemoglobin 30 pg (25-35) Mean Corpuscular Hemoglobin Concent 33 g/dL (31-37) Red Cell Distribution Width 20.7 % (11.5-14.5) Platelet Count 338 x10^3/uL (140-400) Neutrophils (%) (Auto) 90 % (31-73) Lymphocytes (%) (Auto) 4 % (24-48) Monocytes (%) (Auto) 5 % (0-9) Eosinophils (%) (Auto) 1 % (0-3) Basophils (%) (Auto) 1 % (0-3) Neutrophils # (Auto) 4.5 x10^3/uL (1.8-7.7) Lymphocytes # (Auto) 0.2 x10^3/uL (1.0-4.8) Monocytes # (Auto) 0.2 x10^3/uL (0.0-1.1) Eosinophils # (Auto) 0.0 x10^3/uL (0.0-0.7) Basophils # (Auto) 0.1 x10^3/uL (0.0-0.2) Segmented Neutrophils % 94 % (35-66) Band Neutrophils % 2 % (0-9) Lymphocytes % 4 % (24-48) Platelet Estimate Adequate (ADEQUATE) Hypochromasia Slight Poikilocytosis Slight Anisocytosis Mod Prothrombin Time 21.6 SEC (11.7-14.0) Prothromb Time International Ratio 1.9 (0.8-1.1) D-Dimer (Melissa) 1.27 ug/mlFEU (0.00-0.50) Sodium Level 135 mmol/L (136-145) Potassium Level 4.8 mmol/L (3.5-5.1) Chloride Level 96 mmol/L (98-107) Carbon Dioxide Level 27 mmol/L (21-32) Anion Gap 12 (6-14) Blood Urea Nitrogen 28 mg/dL (7-20) Creatinine 5.2 mg/dL (0.6-1.0) Estimated GFR (Cockcroft-Gault) 11.5 BUN/Creatinine Ratio 5 (6-20) Glucose Level 327 mg/dL (70-99) Calcium Level 8.6 mg/dL (8.5-10.1) Ferritin 1757 ng/mL (8-252) Total Bilirubin 0.4 mg/dL (0.2-1.0) Aspartate Amino Transf (AST/SGOT) 28 U/L (15-37) Alanine Aminotransferase (ALT/SGPT) 21 U/L (14-59) Alkaline Phosphatase 206 U/L (46-116) Total Protein 7.8 g/dL (6.4-8.2) Albumin 2.8 g/dL (3.4-5.0) Albumin/Globulin Ratio 0.6 (1.0-1.7) Medications Active Scripts Medications Dose Route/Sig Max Daily Dose Days Date Category Tramadol Hcl 50 Mg Tablet 50 Mg PO PRN Q4HRS PRN 4 09/27/19 Rx Ondansetron Odt (Ondansetron) 4 Mg Tab.rapdis 4 Mg PO PRN Q6HRS PRN 14 08/26/19 Rx Dok (Docusate Sodium) 100 Mg Capsule 100 Mg PO PRN BID PRN 30 08/26/19 Rx Bisacodyl 10 Mg Supp.rect 10 Mg LA PRN DAILY PRN 14 08/26/19 Rx Gabapentin 300 Mg Capsule 300 Mg PO DAILY08 30 08/26/19 Rx Keppra (Levetiracetam) 250 Mg Tablet 375 Mg PO BID 30 08/26/19 Rx Hydralazine Hcl 50 Mg Tablet 75 Mg PO BID 30 08/26/19 Rx Proair Hfa (Albuterol Sulfate) 8.5 Gm Hfa.aer.ad 2.5 Mg NEB PRN Q4HRS PRN 14 08/26/19 Rx Amitiza (Lubiprostone) 24 Mcg Capsule 24 Mcg PO BIDWMEALS 30 08/20/19 Rx [Diclofenac Sodium] 100 GM Gel..gram. 1 Day TP BID 30 08/20/19 Rx Coumadin (Warfarin Sodium) 4 Mg Tablet 1 Tab PO DAILY 06/17/19 Reported Renvela (Sevelamer Carbonate) 800 Mg Tablet 1 Tab PO TID 30 12/28/18 Reported Wendy-Marvin Tablet (Folic Acid/Vitamin B Comp W-C) 0.8 Mg Tablet 1 Tab PO DAILY 30 12/28/18 Reported Protonix (Pantoprazole Sodium) 20 Mg Tablet.dr 2 Tab PO DAILY 12/28/18 Reported Carvedilol 25 Mg Tablet 25 Mg PO BIDWMEALS 12/28/18 Reported Aspirin 81 Mg Tab.chew 1 Tab PO DAILY 12/28/18 Reported Amlodipine Besylate 10 Mg Tablet 10 Mg PO DAILY 12/05/17 Reported Impression . 1. Acute hypoxemic respiratory failure. RESOLVED 2. COVID-19 disease. 3. COVID-19 viral pneumonia. 4. End-stage renal disease, noncompliant. 5. Polysubstance use. 6. Hypertension. 7. Anxiety. 8. Diabetes. 9. Hyperparathyroidism. Plan . PLAN: Clinically better on RA ok with dc home Continue the patient on warfarin, this will take care of DVT prophylaxis. dc steroids I do appreciate the privilege in sharing in the patient's care. RICHAR HILL MD Sep 28, 2019 13:40
--- NOTE | 2019-09-28 14:14 | NUR ---
SW following. Spoke with RN and coordinated care with RN. Pt to discharge home today on room air and oral medications. Spoke with pt who stated she has been off 02 all night and all of today and that she does not want a 6 min walk done to determine if she need home 02. Pt stated no additional SW needs.
--- NOTE | 2019-09-28 15:08 | NUR ---
SW called both [facility] and [facility], , (fax) to confirm dialysis setup at [place] location per pt being COVID positive. Pt has an 8:15am chair time at [facility] starting tomorrow, 09/29/2019. Pt will continue at this location on Tuesdays, , and Tuesday at 8:15am. [address] [address] (phone) [phone] (fax) Spoke with Stella with [facility] transportation ( ) and they don't transport COVID positive patients. Renay with [facility] stated that they have made arrangements with [facility] transport and that pt needs to be ready by 7:30am. Pt notified at [phone]. No further SW needs.
== END 2019-09-28 16:33 | disposition home or self-care (01) | DRG 177 ==
LOC: ER 21:09 → ED HOLD 23:03 → 1 WEST ICU 09-25 01:03 → 6 SOUTH 09-26 07:19
PROVIDERS: ADMIT Internal Medicine; ATTEND Internal Medicine
PROC: 5A09357 Assistance with Respiratory Ventilation, Less than 24 Consecutive Hours, Continuous Positive Airway Pressure (ICD-10-PCS; 2019-09-24)
PROC: 5A09357 Assistance with Respiratory Ventilation, Less than 24 Consecutive Hours, Continuous Positive Airway Pressure (ICD-10-PCS; principal; 2019-09-25)
PROC: 5A1D70Z Performance of Urinary Filtration, Intermittent, Less than 6 Hours Per Day (ICD-10-PCS; 2019-09-25)
PROC: 30233N1 Transfusion of Nonautologous Red Blood Cells into Peripheral Vein, Percutaneous Approach (ICD-10-PCS; 2019-09-27)
PROC: 5A1D70Z Performance of Urinary Filtration, Intermittent, Less than 6 Hours Per Day (ICD-10-PCS; 2019-09-27)
DX: U07.1 COVID-19 (principal); N18.6 End stage renal disease; J96.01 Acute respiratory failure with hypoxia; J12.89 Other viral pneumonia; E43 Unspecified severe protein-calorie malnutrition; I50.33 Acute on chronic diastolic (congestive) heart failure; I13.2 Hypertensive heart and chronic kidney disease with heart failure and with stage 5 chronic kidney disease, or end stage renal disease; D64.9 Anemia, unspecified; E11.22 Type 2 diabetes mellitus with diabetic chronic kidney disease; E11.40 Type 2 diabetes mellitus with diabetic neuropathy, unspecified; E11.65 Type 2 diabetes mellitus with hyperglycemia; E21.3 Hyperparathyroidism, unspecified; E87.5 Hyperkalemia; F12.90 Cannabis use, unspecified, uncomplicated; F41.9 Anxiety disorder, unspecified; G40.909 Epilepsy, unspecified, not intractable, without status epilepticus; G89.29 Other chronic pain; I70.0 Atherosclerosis of aorta; M10.9 Gout, unspecified; M19.90 Unspecified osteoarthritis, unspecified site; M54.10 Radiculopathy, site unspecified; Z82.49 Family history of ischemic heart disease and other diseases of the circulatory system; Z87.01 Personal history of pneumonia (recurrent); Z87.891 Personal history of nicotine dependence; Z91.14 Patient's other noncompliance with medication regimen; Z91.19 Patient's noncompliance with other medical treatment and regimen; Z99.2 Dependence on renal dialysis; F32.9 Major depressive disorder, single episode, unspecified
CPT/HCPCS: 36415; 36600; 71045; 80048; 80053; 80069; 82728; 82805; 82962; 83880; 84484; 85007; 85025; 85379; 85610; 86850; 86900; 86901; 86920; 93005; 94660; J0610; J0882; J1170; J1815; J2060; J2270; J2920; J3490; P9016; G0378; Q0163; U0003-CS

== ENCOUNTER 2019-10-01 02:46 | Inpatient (IN) | payer MEDICARE, OTHER ==
[~2019-10-01] VITALS: Ht 162.6 cm; Wt 63.6 kg
--- NOTE | 2019-10-01 03:03 | PHYS DOC ---
Past Medical History Past Medical History: Anxiety, Arthritis, Depression, Diabetes-Type II, H ypertension, Renal Failure, Other Additional Past Medical Histor: NEUROPATHY Past Surgical History: , Other Additional Past Surgical Histo: kidney biopsy,dialysis cath R chest,UTERINE ABLATION. Smoking Status: Current Every Day Smoker Alcohol Use: None Drug Use: Marijuana General Adult EDM: Chief Complaint: NAUSEA/VOMITING/DIARRHA HPI: HPI: Patient is a 34 year old female who presents emergency department with cough shortness of breath diarrhea body aches. Patient is known COVID positive. She is also a dialysis patient. She was discharged on Tuesday and was supposed to be taken for dialysis on Tuesday but she missed that appointment. She states since that time she feels like she is having fluid overload and having difficulty breathing. She states her home oxygen was below 90. She is cu rrently on 2 L and her oxygen is 100%. She has current nausea. She denies any focal pain. She does take warfarin for history of blood clots. Review of Systems: Review of Systems: Constitutional: Denies fever or chills. [] Eyes: Denies change in visual acuity. [] HENT: Denies nasal congestion or sore throat. [] Respiratory: Denies cough or shortness of breath. [] Cardiovascular: Denies chest pain or edema. [] GI: Denies abdominal pain, nausea, vomiting, bloody stools or diarrhea. [] : Denies dysuria. [] Musculoskeletal: Denies back pain or joint pain. [] Integument: Denies rash. [] Neurologic: Denies headache, focal weakness or sensory changes. [] Endocrine: Denies polyuria or polydipsia. [] Lymphatic: Denies swollen glands. [] Psychiatric: Denies depression or anxiety. [] Heart Score: Risk Factors: Risk Factors: DM, Current or recent (<one month) smoker, HTN, HLP, family history of CAD, obesity. Risk Scores: Score 0 - 3: 2.5% MACE over next 6 weeks - Discharge Home Score 4 - 6: 20.3% MACE over next 6 weeks - Admit for Clinical Observation Score 7 - 10: 72.7% MACE over next 6 weeks - Early Invasive Strategies Allergies: Allergies: Allergies Coded Allergies Type Severity Reaction Last Updated Verified No Known Drug Allergies 12/05/17 No Physical Exam: PE: Constitutional: Well developed, well nourished, no acute distress, non-toxic appearance. [] HENT: Normocephalic, atraumatic, bilateral external ears normal, oropharynx moist, no oral exudates, nose normal. [] Eyes: PERRLA, EOMI, conjunctiva normal, no discharge. [] Neck: Normal range of motion, no tenderness, supple, no stridor. [] Cardiovascular:Heart rate regular rhythm, no murmur [] Lungs & Thorax: Bilateral breath sounds clear to auscultation [] Abdomen: Bowel sounds normal, soft, no tenderness, no masses, no pulsatile masses. [] Skin: Warm, dry, no erythema, no rash. [] Back: No tenderness, no CVA tenderness. [] Extremities: No tenderness, no cyanosis, no clubbing, ROM intact, no edema. [] Neurologic: Alert and oriented X 3, normal motor function, normal sensory function, no focal deficits noted. [] Psychologic: Affect normal, judgement normal, mood normal. [] EKG: EKG: [] Radiology/Procedures: Radiology/Procedures: [] Course & Med Decision Making: Course & Med Decision Making Pertinent Labs and Imaging studies reviewed. (See chart for details) Patient with known COVID-19 presents with body aches nausea shortness of breath. Differential diagnosis includes worsening COVID. She could also have fluid overload from missing dialysis Tuesday. Patient's x-ray is actually improving. However her potassium was 6.5. Her EKG does show some peaked T waves. Calcium gluconate sodium bicarbonate and Kayexalate were ordered. Patient has had frequently elevated potassiums recently. She will be admitted to telemetry will need to be dialyzed this morning. Alana Disclaimer: Alana Disclaimer: This electronic medical record was generated, in whole or in part, using a voice recognition dictation system. Departure Departure Impression: Primary Impression: COVID-19 Additional Impressions: Hyperkalemia End stage chronic kidney disease Disposition: ADMITTED INPATIENT Admitting Physician: ELIZABETH Condition: GUARDED Referrals: UNKNOWN PCP NAME (PCP) Justicifation of Admission Dx: Justifications for Admission: Justification of Admission Dx: Yes Critical Care Note Total Time (mins): 35 Comments Patient with end-stage renal disease and hyperkalemia. She is also COVID positive. 35 minutes was spent in critical care at the bedside, documentation, reviewing labs and imaging. Problems: (1) ESRD (end stage renal disease) on dialysis (2) Hyperkalemia PRINCE HAM DO Oct 01, 2019 03:03
[2019-10-01] MEDS ORDERED: ACETAMINOPHEN 500 MG TABLET PO ONE (03:15)
[2019-10-01] MEDS ORDERED: ONDANSETRON PF 4 MG/2 ML VIAL. IVP ONE (03:15)
--- NOTE | 2019-10-01 03:27 | RAD ---
Chest AP portable at 0305: Reason for examination: Short of breath. Comparison is made to previous study dated 09/24/2019. Venous catheter remains present on the right with the tip in the superior vena cava distally. Heart and mediastinum are unchanged. Lung carbajal continue show right lower lobe infiltrates with a small right pleural effusion. Left lung infiltrates have improved. No acute bony abnormalities are seen. IMPRESSION: Persistent right lower lobe infiltrates with a small right pleural effusion. Interval improvement in the left lung infiltrates. Electronically signed by: Alejandra Olmstead MD (10/01/2019 3:24 AM) [id number]
[2019-10-01 03:37] LABS: BASO % 1 % (0-3); EOS # 0.8 x10^3/uL (0.0-0.7); EOS % 9 % (0-3); HEMATOCRIT 25.3 % (36.0-47.0); HEMOGLOBIN 8.5 g/dL (12.0-15.5); LYMPH # 0.6 x10^3/uL (1.0-4.8); LYMPH % 7 % (24-48); MEAN CORPUSCULAR HEMOGLOBIN 30 pg (25-35); MEAN CORPUSCULAR HGB CONC 34 g/dL (31-37); MEAN CORPUSCULAR VOLUME 90 fL (79-100); MONO # 0.6 x10^3/uL (0.0-1.1); MONO % 7 % (0-9); NEUT # 6.8 x10^3/uL (1.8-7.7); NEUT % 77 % (31-73); PLATELET COUNT 280 x10^3/uL (140-400); RED BLOOD COUNT 2.83 x10^6/uL (3.50-5.40); RED CELL DISTRIBUTION WIDTH 20.1 % (11.5-14.5); WHITE BLOOD COUNT 8.8 x10^3/uL (4.0-11.0)
[2019-10-01] MEDS ORDERED: fentaNYL PF VIAL 100 MCG/2 ML VIAL IVP ONE (03:45)
[2019-10-01] MEDS: BENZOCAINE/MENTHOL LOZENGE. PO PRN ×2 (03:47→11:35)
[2019-10-01 03:48] LABS: PROTHROMBIN TIME PATIENT 21.6 SEC (11.7-14.0)
[2019-10-01 03:51] LABS: ALBUMIN/GLOBULIN RATIO 0.7 (1.0-1.7); C-REACTIVE PROTEIN 94.3 mg/L (0-3.3); CALCIUM 7.8 mg/dL (8.5-10.1); CREATININE 10.3 mg/dL (0.6-1.0); GFR 5.2; MAGNESIUM 1.9 mg/dL (1.8-2.4); TOTAL BILIRUBIN 0.5 mg/dL (0.2-1.0); TOTAL PROTEIN 7.4 g/dL (6.4-8.2)
[2019-10-01 04:08] LABS: POTASSIUM 6.5 mmol/L (3.5-5.1)
[2019-10-01] MEDS ORDERED: CALCIUM GLUCONATE 1,000 MG/10 ML VIAL. IVP ONE (04:15)
[2019-10-01] MEDS ORDERED: SODIUM POLYSTYRENE SULFON/SORB 15 GM/60 ML ORAL.SUSP. PO ONE (04:15)
[2019-10-01] MEDS ORDERED: SODIUM BICARB ADULT 8.4% 50 MEQ/50 ML DISP.SYRIN. IV ONE (04:15)
[2019-10-01] MEDS ORDERED: ONDANSETRON PF 4 MG/2 ML VIAL. IV PRN ×2 (04:30→06:00)
[2019-10-01] MEDS: fentaNYL PF VIAL 100 MCG/2 ML VIAL IV PRN ×7 (05:06→21:25)
[2019-10-01 05:21] LABS: ANISOCYTOSIS MOD; PLT ESTIMATE ADEQUATE (ADEQUATE)
[2019-10-01 05:52] VITALS: BP 137/69
[2019-10-01] MEDS ORDERED: ALBUTEROL SULFATE 2.5 MG/3 ML NEBU. NEB PRN (06:00)
[2019-10-01] MEDS ORDERED: DOCUSATE SODIUM 100 MG CAPSULE. PO PRN (06:00)
[2019-10-01] MEDS ORDERED: ONDANSETRON ODT 4 MG TAB.RAPDIS. PO PRN (06:00)
[2019-10-01] MEDS ORDERED: BISACODYL 10 MG SUPP.RECT. PR PRN (06:00)
[2019-10-01] MEDS ORDERED: traMADol 50 MG TABLET PO PRN (06:00)
[2019-10-01 07:00] VITALS: BP 141/80
[2019-10-01] MEDS ORDERED: PANTOPRAZOLE 40 MG TABLET.DR. PO SCH (07:30)
[2019-10-01] MEDS ORDERED: GABAPENTIN 300 MG CAPSULE. PO SCH (08:00)
[2019-10-01] MEDS ORDERED: ASPIRIN CHEWABLE 81 MG TABLET. PO SCH (09:00)
[2019-10-01] MEDS ORDERED: FOLIC/VIT B COMP W-C (RENAL) TABLET. PO SCH (09:00)
[2019-10-01] MEDS ORDERED: amLODIPine BESYLATE 10 MG TABLET PO SCH (09:00)
[2019-10-01] MEDS: SEVELAMER CARBONATE 800 MG TABLET. PO SCH ×3 (09:12→18:19)
[2019-10-01] MEDS: levETIRAcetam 250 MG TABLET PO SCH ×2 (09:12→21:09)
[2019-10-01] MEDS: LUBIPROSTONE 24 MCG CAPSULE PO SCH ×2 (09:13→18:19)
[2019-10-01] MEDS: CARVEDILOL 12.5 MG TABLET. PO SCH ×2 (09:15→17:00)
[2019-10-01] MEDS: DICLOFENAC SODIUM 1% TOPICAL GEL 100GM TUBE. TP SCH ×2 (09:16→21:09)
--- NOTE | 2019-10-01 10:55 | EKG ---
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
[2019-10-01 11:10] VITALS: BP 101/46
--- NOTE | 2019-10-01 12:15 | SSS ---
ADMIT DATE: 10/01/2019 CHIEF COMPLAINT: Nausea, vomiting, and diarrhea. HISTORY OF PRESENT ILLNESS: The patient is a pleasant 34-year-old female who we just discharged and she is well known to our service. She is on dialysis. She basically was discharged late last week and came back last night with some nausea, vomiting, and diarrhea. I think she missed her dialysis as well. She was admitted overnight for observation. This morning, she is being examined on the medical floor where she is requesting lot of pain meds. I explained to her that we will probably let her go after dialysis. She agrees and wants to go home. PAST MEDICAL HISTORY: Anxiety, arthritis, depression, diabetes, hyperlipidemia, hypertension, neuropathy, , kidney biopsy, dialysis catheter, uterine ablation, tobacco abuse, marijuana use. ALLERGIES: None. FAMILY HISTORY: End-stage renal disease. SOCIAL HISTORY: She does not take drugs, but she smokes marijuana. She does not drink. She does smoke cigarettes. MEDICATIONS: Reviewed, please refer to the MRAD. REVIEW OF SYSTEMS: GENERAL: No history of weight change, weakness or fevers. SKIN: No bruising, hair changes or rashes. EYES: No blurred, double or loss of vision. NOSE AND THROAT: No history of nosebleeds, hoarseness or sore throat. HEART: No history of palpitations, chest pain or shortness of breath on exertion. LUNGS: Denies cough, hemoptysis, wheezing or shortness of breath. GASTROINTESTINAL: Denies changes in appetite, nausea, vomiting, diarrhea or constipation. GENITOURINARY: No history of frequency, urgency, hesitancy or nocturia. NEUROLOGIC: Denies history of numbness, tingling, tremor or weakness. PSYCHIATRIC: No history of panic, anxiety or depression. ENDOCRINE: No history of heat or cold intolerance, polyuria or polydipsia. EXTREMITIES: Denies muscle weakness, joint pain, pain on walking or stiffness. PHYSICAL EXAMINATION: VITALS: Within normal limits and are stable. GENERAL: No apparent distress. Alert and oriented. HEENT: Normal cephalic atraumatic, external auditory canals are patent. Eyes: Extraocular muscles are intact, pupils are equally round and reactive to light and accommodation. MUSCULOSKELETAL: Well developed, well nourished, good range of motion. ENDOCRINE: No thyromegaly was palpated. LYMPHATICS: No cervical chain or axillary nodes were noted. HEMATOPOIETIC: No bruising. NECK: Supple, no JVD, no thyromegaly was noted. LUNGS: Clear to auscultation in all lung carbajal without rhonchi or wheezing. HEART: RRR, S1, S2 present. Peripheral pulses intact, no obvious murmurs were noted. ABDOMEN: Soft, nontender. Positive bowel sounds no organomegaly, normal bowel sounds. EXTREMITIES: Without any cyanosis, clubbing, or edema. Pedal pulses intact, Homans sign is negative. NEUROLOGIC: Normal speech, normal tone. A and O x 3, moves all extremities, no obvious focal deficits. PSYCHIATRIC: Normal affect, normal mood. Stable. SKIN: No ulcerations or rashes, good skin turgor, no jaundice. VASCULAR: Good capillary refill, neurovascular bundle appears to be intact. LABORATORY DATA: Her potassium was high at 6.5, sodium is 131, BUN 64, creatinine 10.3. ASSESSMENT AND PLAN: Resolving nausea, vomiting and diarrhea, suspected viral gastroenteritis in a middle-aged female who is on dialysis and has multiple comorbidities with an incidental finding of hyperkalemia. Plan will be to go ahead and dialyze her this afternoon. I gave her a prescription for some p.r.n. Percocet. Continue her other home meds. If she is feeling better after dialysis, we hope to discharge with close outpatient followup. DISPOSITION: Home. ACTIVITY: As tolerated. DIET: Renal. MEDICATIONS: Please see the MRAD. TOTAL TIME: 32 minutes. JULIAN GONSALVES DO DR: ROMINA/manasa JOB#: [id number] / [id number]
--- NOTE | 2019-10-01 12:44 | PDOC ---
Renal-Progress Notes Subjective Notes Notes SOB History of Present Illness Hx of present illness STABLE, PT DID NOT MAKE IT TO COHORT HD UNIT ON SAT Vitals Vitals Vital Signs Date Time Temp Pulse Resp B/P (MAP) Pulse Ox O2 Delivery O2 Flow Rate FiO2 10/01/19 11:36 18 Room Air 10/01/19 11:10 97.8 73 101/46 (64) 98 2.0 97.8 Weight Weight [ ] Labs Labs Laboratory Tests Test 10/01/19 03:25 10/01/19 09:56 White Blood Count 8.8 x10^3/uL (4.0-11.0) Red Blood Count 2.83 x10^6/uL (3.50-5.40) Hemoglobin 8.5 g/dL (12.0-15.5) Hematocrit 25.3 % (36.0-47.0) Mean Corpuscular Volume 90 fL (79-100) Mean Corpuscular Hemoglobin 30 pg (25-35) Mean Corpuscular Hemoglobin Concent 34 g/dL (31-37) Red Cell Distribution Width 20.1 % (11.5-14.5) Platelet Count 280 x10^3/uL (140-400) Neutrophils (%) (Auto) 77 % (31-73) Lymphocytes (%) (Auto) 7 % (24-48) Monocytes (%) (Auto) 7 % (0-9) Eosinophils (%) (Auto) 9 % (0-3) Basophils (%) (Auto) 1 % (0-3) Neutrophils # (Auto) 6.8 x10^3/uL (1.8-7.7) Lymphocytes # (Auto) 0.6 x10^3/uL (1.0-4.8) Monocytes # (Auto) 0.6 x10^3/uL (0.0-1.1) Eosinophils # (Auto) 0.8 x10^3/uL (0.0-0.7) Basophils # (Auto) 0.0 x10^3/uL (0.0-0.2) Platelet Estimate Adequate (ADEQUATE) Anisocytosis Mod Prothrombin Time 21.6 SEC (11.7-14.0) Prothromb Time International Ratio 1.9 (0.8-1.1) Activated Partial Thromboplast Time 49 SEC (24-38) Sodium Level 131 mmol/L (136-145) Potassium Level 6.5 mmol/L (3.5-5.1) Chloride Level 94 mmol/L (98-107) Carbon Dioxide Level 21 mmol/L (21-32) Anion Gap 16 (6-14) Blood Urea Nitrogen 64 mg/dL (7-20) Creatinine 10.3 mg/dL (0.6-1.0) Estimated GFR (Cockcroft-Gault) 5.2 BUN/Creatinine Ratio 6 (6-20) Glucose Level 185 mg/dL (70-99) Calcium Level 7.8 mg/dL (8.5-10.1) Magnesium Level 1.9 mg/dL (1.8-2.4) Total Bilirubin 0.5 mg/dL (0.2-1.0) Aspartate Amino Transf (AST/SGOT) 24 U/L (15-37) Alanine Aminotransferase (ALT/SGPT) 27 U/L (14-59) Alkaline Phosphatase 181 U/L (46-116) C-Reactive Protein, Quantitative 94.3 mg/L (0-3.3) Total Protein 7.4 g/dL (6.4-8.2) Albumin 3.0 g/dL (3.4-5.0) Albumin/Globulin Ratio 0.7 (1.0-1.7) Glucose (Fingerstick) 165 mg/dL (70-99) Review of Systems Constitutional: yes: weakness, alert, oriented Ears/Nose/Throat: Yes: no symptom reported Eyes: Yes: no symptom reported Pulmonary: Yes dyspnea Cardiovascular: Yes no symptom reported Gastrointestional: Yes: no symptom reported Genitourinary: Yes: no symptom reported Skin: Yes no symptom reported Psychiatric/Neurological: Yes: no symptom reported Endocrine: Yes: no symptom reported Physical Exam General Appearance: no apparent distress Skin: warm Respiratory: decreased breath sounds Heart: S1S2 Abdomen: soft, bowel sounds present Genitourinary: bladder flat Extremities: pulses present Neurology: alert, oriented Assessment Assessment IMP ESRD-TTS COVID 19 POS ANEMIA HTN DM II NON COMPLIANCE PLAN HD TODAY UF TO DW OK TO D/C SW TO SET UP TRANSPORTATION FOR OP HD ERVIN MARTINEZ MD Oct 01, 2019 12:44
[2019-10-01 14:00] VITALS: BP 145/70
[2019-10-01] MEDS ORDERED: WARFARIN 4 MG TABLET. PO SCH (16:00)
[2019-10-01] MEDS ORDERED: IV NORMAL SALINE 1000ML BAG 1,000 ML IV PRN ×2 (16:29)
[2019-10-01] MEDS ORDERED: DIALYSIS PATIENT. MC PRN (16:30)
--- NOTE | 2019-10-01 17:04 | NUR ---
SW following. Reviewed chart and spoke with RN and CM. Pt discharged on 09/28/2019 with dialysis setup at [facility] and Medicaid transportation arranged. Pt admitted back to [facility] on 10/01/2019 stating she came to the hospital because transportation did not show up on 09/29/2019. See note below from 09/28/2019 discharge... "SW called both [facility] and [facility], , (fax) to confirm dialysis setup at [place] location per pt being COVID positive. Pt has an 8:15am chair time at [facility] starting tomorrow, 09/29/2019. Pt will continue at this location on Tuesdays, , and Tuesday at 8:15am. [address] [address] (phone) [phone] (fax) Spoke with Stella with [employer] transportation ( ) and they don't transport COVID positive patients. Renay with [facility] stated that they have made arrangements with [facility] transport and that pt needs to be ready by 7:30am. Pt notified at [phone]. No further SW needs." This SW confirmed again on this admission with both Renay from [facility] and Angelito at [facility] ([phone]) that transportation has been arranged for pt through 10/13/2019 to the [facility] location per pt being COVID positive. Pt stated to this SW that transport did not arrive on 09/29/2019. SW instructed pt to call [facility] at [phone] if she has questions about when her ride will arrive. Pt verbalized understanding that she will discharge from [facility] today, 10/01/2019 and resume dialysis at the [place] location on Tuesdays, , and Saturdays at 8:15am. Pt verbalized understanding that she will go for dialysis tomorrow, 10/02/2019 and that she has the number to call for [facility]. No further SW needs at this time.
[2019-10-01] MEDS ORDERED: POLYETHYLENE GLYCOL 3350 17 GM PACKET. PO SCH (18:00)
[2019-10-01] MEDS ORDERED: PSYLLIUM HUSK (SUGAR FREE) 1 PKT PACKET PO SCH (18:00)
[2019-10-01 21:09] VITALS: BP 142/65
--- NOTE | 2019-10-01 23:50 | NUR ---
Discharge Note: JORGE ESTRADA [address] [place] [address] Discharge instructions and discharge home medications reviewed with Patient and a copy given. All questions have been answered and understanding verbalized. Rx with pt. The following instructions and handouts were given: information on dialysis, covid-19, and f/u with . Discontinued lines and drains: Peripheral IV intact. Patient discharged to Home or Self Care via Wheelchair.
== END 2019-10-01 23:35 | disposition home or self-care (01) | DRG 391 ==
LOC: ER 02:46 → 6 SOUTH 05:26 → OBSVTOIN 09:16
PROVIDERS: ADMIT Internal Medicine; ATTEND Internal Medicine
PROC: 5A1D70Z Performance of Urinary Filtration, Intermittent, Less than 6 Hours Per Day (ICD-10-PCS; principal; 2019-10-01)
DX: A08.4 Viral intestinal infection, unspecified (principal); U07.1 COVID-19; N18.6 End stage renal disease; I12.0 Hypertensive chronic kidney disease with stage 5 chronic kidney disease or end stage renal disease; E87.5 Hyperkalemia; D64.9 Anemia, unspecified; E11.22 Type 2 diabetes mellitus with diabetic chronic kidney disease; E11.40 Type 2 diabetes mellitus with diabetic neuropathy, unspecified; E78.5 Hyperlipidemia, unspecified; F12.90 Cannabis use, unspecified, uncomplicated; F17.210 Nicotine dependence, cigarettes, uncomplicated; Z79.01 Long term (current) use of anticoagulants; Z86.718 Personal history of other venous thrombosis and embolism; Z91.19 Patient's noncompliance with other medical treatment and regimen; Z99.2 Dependence on renal dialysis; F32.9 Major depressive disorder, single episode, unspecified; F41.9 Anxiety disorder, unspecified; M19.90 Unspecified osteoarthritis, unspecified site
CPT/HCPCS: 36415; 71045; 80053; 82962; 83735; 85025; 85610; 85730; 86140; 93005; 96374; 96375; 99291; G0378; G0379; J0610; J2405; J3010; J3490

== ENCOUNTER 2019-10-09 06:51 | Inpatient (IN) | payer MEDICARE, OTHER ==
[~2019-10-09] VITALS: Ht 317.5 cm; Wt 71.5 kg
--- NOTE | 2019-10-09 07:12 | PHYS DOC ---
Past Medical History Past Medical History: Anxiety, Arthritis, Depression, Diabetes-Type II, H ypertension, Renal Failure, Other Additional Past Medical Histor: NEUROPATHY Past Surgical History: , Other Additional Past Surgical Histo: kidney biopsy,dialysis cath R chest,UTERINE ABLATION. Smoking Status: Current Every Day Smoker Alcohol Use: None Drug Use: Marijuana General Adult EDM: Chief Complaint: SHORTNESS OF BREATH HPI: HPI: The history was obtained from the patient and EMS. Patient is a 34-year-old fem rosenda with PMH [id number]-znhfovovf diabetic, hypertension, ESRD who presents with a chief complaint of shortness of breath. Patient states she has had progressive shortness of breath over the past 2 days. She denies any cough. She does endorse orthopnea and bendopnea. She denies any active chest pain. She states that she typically gets short of breath when she misses dialysis. She states her last dialysis treatment was 5 days ago. She states she typically receives dialysis treatments on Saturdays, Tuesdays, and . She does follow with Dr. Bernstein. She states she has been on dialysis for the past 2 years. She states her access site of the right anterior chest port. She states that she was in the process of having a left upper extremity fistula placed but it needs to be revised. She denies any fevers. She does note she was hospitalized for COVID-19 approximately 2 weeks ago. She also notes increased swelling to the left lower extremity. She states this has been present for several weeks to months. She states that she has been told that this may be gout. She does note that she takes Coumadin daily for history of pulmonary embolism. She states she has not missed any doses but is unsure of her most recent INR. She does note that she has missed several dialysis appointments over the past month. She states she does not use oxygen at home. EMS states on arrival she was noted to have an oxygen saturation of 80 0%. She did improve with 4 L nasal cannula. No other complaints from the patient at this time. Review of Systems: Review of Systems: Constitutional: Denies fever or chills. [] Eyes: Denies change in visual acuity. [] HENT: Denies nasal congestion or sore throat. [] Respiratory: Positive for shortness of breath. Cardiovascular: Positive for edema GI: Denies abdominal pain, nausea, vomiting, bloody stools or diarrhea. [] : Denies dysuria. [] Musculoskeletal: Denies back pain or joint pain. [] Integument: Denies rash. [] Neurologic: Denies headache, focal weakness or sensory changes. [] Endocrine: Denies polyuria or polydipsia. [] Lymphatic: Denies swollen glands. [] Psychiatric: Denies depression or anxiety. [] Heart Score: Risk Factors: Risk Factors: DM, Current or recent (<one month) smoker, HTN, HLP, family history of CAD, obesity. Risk Scores: Score 0 - 3: 2.5% MACE over next 6 weeks - Discharge Home Score 4 - 6: 20.3% MACE over next 6 weeks - Admit for Clinical Observation Score 7 - 10: 72.7% MACE over next 6 weeks - Early Invasive Strategies Allergies: Allergies: Allergies Coded Allergies Type Severity Reaction Last Updated Verified No Known Drug Allergies 12/05/17 No Physical Exam: PE: Constitutional: Well developed, well nourished, no acute distress, non-toxic appearance. [] HENT: Normocephalic, atraumatic, bilateral external ears normal, oropharynx moist, no oral exudates, nose normal. [] Eyes: PERRLA, EOMI, conjunctiva normal, no discharge. [] Neck: Normal range of motion, no tenderness, supple, no stridor. [] Cardiovascular: Tachycardic, regular. Lungs & Thorax: Crackles noted on auscultation in all lung carbajal. 4 L nasal cannula in place. Conversationally dyspneic. Abdomen: Bowel sounds normal, soft, no tenderness, no masses, no pulsatile masses. [] Skin: Warm, dry, no erythema, no rash. [] Back: No tenderness, no CVA tenderness. [] Extremities: +2-4 pitting edema in the left lower extremity. Neurologic: Alert and oriented X 3, normal motor function, normal sensory function, no focal deficits noted. [] Psychologic: Affect normal, judgement normal, mood normal. [] Current Patient Data: Labs: Laboratory Tests Test 10/09/19 07:45 White Blood Count 14.5 x10^3/uL Red Blood Count 2.78 x10^6/uL Hemoglobin 8.1 g/dL Hematocrit 25.4 % Mean Corpuscular Volume 91 fL Mean Corpuscular Hemoglobin 29 pg Mean Corpuscular Hemoglobin Concent 32 g/dL Red Cell Distribution Width 20.6 % Platelet Count 349 x10^3/uL Neutrophils (%) (Auto) 79 % Lymphocytes (%) (Auto) 8 % Monocytes (%) (Auto) 7 % Eosinophils (%) (Auto) 5 % Basophils (%) (Auto) 0 % Neutrophils # (Auto) 11.5 x10^3/uL Lymphocytes # (Auto) 1.1 x10^3/uL Monocytes # (Auto) 1.0 x10^3/uL Eosinophils # (Auto) 0.8 x10^3/uL Basophils # (Auto) 0.1 x10^3/uL Platelet Estimate Adequate Large Platelets Few Anisocytosis Mod Schistocytes Few Prothrombin Time 31.4 SEC Prothromb Time International Ratio 3.0 Sodium Level 134 mmol/L Potassium Level 5.6 mmol/L Chloride Level 98 mmol/L Carbon Dioxide Level 21 mmol/L Anion Gap 15 Blood Urea Nitrogen 84 mg/dL Creatinine 13.1 mg/dL Estimated GFR (Cockcroft-Gault) 3.9 BUN/Creatinine Ratio 6 Glucose Level 186 mg/dL Calcium Level 8.0 mg/dL Magnesium Level 2.5 mg/dL Total Bilirubin 0.5 mg/dL Aspartate Amino Transf (AST/SGOT) 28 U/L Alanine Aminotransferase (ALT/SGPT) 37 U/L Alkaline Phosphatase 193 U/L Troponin I Quantitative 0.026 ng/mL [id number]-[id number]-Type Natriuretic Peptide > 17625 pg/mL Total Protein 8.4 g/dL Albumin 3.2 g/dL Albumin/Globulin Ratio 0.6 Serum Test, Qualitative Negative Current Medications Medications (Trade) Dose Ordered Sig/Mary Kay Route PRN Reason Start Time Stop Time Status Last Admin Dose Admin Acetaminophen (Tylenol) 1,000 mg 1X ONCE PO 10/09/19 07:15 10/09/19 07:16 DC 10/09/19 08:06 Vancomycin HCl 1.5 gm/Sodium Chloride 500 ml @ 250 mls/hr 1X ONCE IV 10/09/19 09:45 10/09/19 11:44 10/09/19 10:09 Cefepime HCl (Maxipime) 1 gm 1X ONCE IVP 10/09/19 09:15 10/09/19 09:18 DC 10/09/19 10:07 Hydralazine HCl (Apresoline) 75 mg TID PO 10/09/19 14:00 Amlodipine Besylate (Norvasc) 10 mg 1X ONCE PO 10/09/19 10:30 10/09/19 10:31 DC 10/09/19 10:06 Carvedilol (Coreg) 25 mg BIDWMEALS PO 10/09/19 11:00 Gabapentin (Neurontin) 300 mg 1X ONCE PO 10/09/19 10:15 10/09/19 10:16 DC 10/09/19 10:29 Vital Signs: Vital Signs Date Time Temp Pulse Resp B/P (MAP) Pulse Ox O2 Delivery O2 Flow Rate FiO2 10/09/19 10:06 98 180/82 10/09/19 07:00 98.2 22 100 4.0 98.2 EKG: EKG: EKG consistent with sinus tachycardia. Ventricular rate of 110 bpm. [place] normal. Artifact in lead III makes this lead uninterpretable. Intervals are unremarkable. No acute ischemic changes appreciated. Overall morphology similar EKG from August 24, 2019 [] Radiology/Procedures: Radiology/Procedures: [] Course & Med Decision Making: Course & Med Decision Making Pertinent Labs and Imaging studies reviewed. (See chart for details) Patient is an ill-appearing 34-year-old female presents with chief complaint of worsening shortness of breath. Per EMS on arrival she was satting at approximately 84% on room air. She arrives with 4 L nasal cannula in place. She does appear somewhat dyspneic. Physical exam noted above. Chest x-ray does show bilateral pulmonary edema. She does have a history of ESRD noncompliance. I do feel her shortness of breath and hypoxia is most like related to pulmonary edema. However given she does have a mildly elevated leukocytosis of 14,000 broad-spectrum antibiotics will be administered., Testing was obtained and is currently pending. Patient's chemistry panel does show findings consistent with chronic renal failure. Hyperkalemia 5.4. Creatinine of 13. BUN 84. No signs of hyperkalemic EKG changes are noted. Left lower extremity Doppler negative for DVT. I did discuss the case with family and consumer sciences professor . Signout has been given to hospitalist. Home antihypertensive medications were restarted orally. Patient is appropriate for telemetry hospitalization. Dragon Disclaimer: Dragon Disclaimer: This electronic medical record was generated, in whole or in part, using a voice recognition dictation system. Departure Departure Disposition: ADMITTED INPATIENT Referrals: UNKNOWN PCP NAME (PCP) Justicifation of Admission Dx: Justifications for Admission: Justification of Admission Dx: Yes Respiratory Failure: Non-Cardiac Pulm Edema Chronic Renal Failure: Electrolyte Abnormality SUZAN HARRY DO Oct 09, 2019 07:12
[2019-10-09] MEDS ORDERED: ACETAMINOPHEN 500 MG TABLET PO ONE (07:15)
[2019-10-09 08:15] LABS: CREATININE 13.1 mg/dL (0.6-1.0); GFR 3.9; POTASSIUM 5.6 mmol/L (3.5-5.1)
[2019-10-09 08:18] LABS: BASO # 0.1 x10^3/uL (0.0-0.2); BASO % 0 % (0-3); EOS # 0.8 x10^3/uL (0.0-0.7); EOS % 5 % (0-3); HEMATOCRIT 25.4 % (36.0-47.0); HEMOGLOBIN 8.1 g/dL (12.0-15.5); LYMPH # 1.1 x10^3/uL (1.0-4.8); LYMPH % 8 % (24-48); MEAN CORPUSCULAR HEMOGLOBIN 29 pg (25-35); MEAN CORPUSCULAR HGB CONC 32 g/dL (31-37); MEAN CORPUSCULAR VOLUME 91 fL (79-100); MONO % 7 % (0-9); NEUT # 11.5 x10^3/uL (1.8-7.7); NEUT % 79 % (31-73); PLATELET COUNT 349 x10^3/uL (140-400); RED BLOOD COUNT 2.78 x10^6/uL (3.50-5.40); RED CELL DISTRIBUTION WIDTH 20.6 % (11.5-14.5); WHITE BLOOD COUNT 14.5 x10^3/uL (4.0-11.0)
--- NOTE | 2019-10-09 08:19 | RAD ---
LEFT LEG VENOUS DOPPLER STUDY: Clinical indications: Left leg swelling and pain. Findings: Duplex sonography (including nguyen scale evaluation and color flow and waveform spectral analysis) of the proximal aspect of the greater saphenous vein and the proximal aspect of the profunda femoral vein and the entire length of the common femoral and superficial femoral and popliteal veins and the tibioperoneal trunk and the proximal aspect of the posterior tibial and peroneal veins of the left leg was performed. Normal compressibility, augmentation of color Doppler flow after calf compression, and respiratory variation of Doppler flow is seen. Thus, there are no sonographic findings of deep venous thrombosis within these veins. Impression: There are no sonographic findings of deep venous thrombosis within the veins discussed above of the left lower extremity. Electronically signed by: Uziel Mora MD (10/09/2019 8:16 AM) [id number]
[2019-10-09 08:21] LABS: ALBUMIN 3.2 g/dL (3.4-5.0); ALBUMIN/GLOBULIN RATIO 0.6 (1.0-1.7); MAGNESIUM 2.5 mg/dL (1.8-2.4); TOTAL BILIRUBIN 0.5 mg/dL (0.2-1.0); TOTAL PROTEIN 8.4 g/dL (6.4-8.2)
[2019-10-09 08:22] LABS: PREG TEST PT QUAL NEGATIVE (NEG)
[2019-10-09 08:33] LABS: PROTHROMBIN TIME PATIENT 31.4 SEC (11.7-14.0)
[2019-10-09] MEDS ORDERED: CEFEPIME HCL IV Push 1 GM VIAL. IVP ONE (09:15)
--- NOTE | 2019-10-09 09:23 | RAD ---
CHEST AP ONLY History: Reason: SOB,PT STATES TROUBLE BREATHING / Spl. Instructions: / History: Comparison: October 01, 2019 Findings: Increased interstitial thickening. Right mid and basilar consolidation. Increased patchy left mid opacity. Small right pleural effusion, unchanged. Right-sided central line, unchanged. Unchanged heart size. No pneumothorax. Impression: 1. Increased interstitial thickening, may represent pulmonary edema. 2. Increased right mid and basilar consolidation. 3. Small right pleural effusion, unchanged. Electronically signed by: Hakeem Masters DO (10/09/2019 9:20 AM) [facility]
[2019-10-09] MEDS ORDERED: VANCOMYCIN 1.5 GM in IV NORMAL SALINE 500ML BAG 500 ML IV ONE (09:45)
[2019-10-09] MEDS ORDERED: GABAPENTIN 300 MG CAPSULE. PO ONE (10:15)
[2019-10-09 10:26] LABS: PLT ESTIMATE ADEQUATE (ADEQUATE)
[2019-10-09 10:27] LABS: ANISOCYTOSIS MOD; SCHISTOCYTES FEW
[2019-10-09] MEDS ORDERED: ONDANSETRON PF 4 MG/2 ML VIAL. IV PRN ×2 (10:30→23:00)
[2019-10-09] MEDS ORDERED: amLODIPine BESYLATE 5 MG TABLET PO ONE (10:30)
[2019-10-09] MEDS: CARVEDILOL 12.5 MG TABLET. PO SCH ×2 (11:00→18:11)
--- NOTE | 2019-10-09 11:08 | EKG ---
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
--- NOTE | 2019-10-09 11:20 | PDOC1 ---
History and Physical Date of Service: DOS: DATE: 10/09/19 TIME: 11:17 Chief Complaint: Problems: (1) Hematuria (2) Anemia (3) Anxiety (4) Hyperglycemia (5) Pulmonary edema (6) Nausea and vomiting (7) Tachycardia (8) Respiratory failure with hypoxia (9) Pneumonia (10) Severe malnutrition (11) Accelerated hypertension (12) Body aches (13) Noncompliance with medication regimen (14) Left against medical advice (15) Uncontrolled hypertension (16) Intractable low back pain (17) Uncontrolled type 2 diabetes mellitus (18) Numbness on right side (19) Person under investigation for COVID-19 Chief Complain: Shortness of breath History of Present Illness: HPI: This is a middle-aged -[place] female well-known to my service We admit her at least once or twice a month mostly because she misses dialysis and she is noncompliant Once again she missed dialysis and now short of breath for the past 2 days She called the ambulance When EMS got there she was hypoxic with a sat of 80% She was placed on 4 L and brought to the ER On the ER she is noted vascular congestion we are also concerned she could possibly have COVID-19 Discussed the case with ER physician were going to meet the patient in consult nephrology and cardiology Past Medical/Surgical History: PMH/PSH: Past Medical History: Anxiety, Arthritis, Depression, Diabetes-Type II, Hypertension, Renal Failure, Other Additional Past Medical Histor: NEUROPATHY Past Surgical History: , Other Additional Past Surgical Histo: kidney biopsy,dialysis cath R chest,UTERINE ABLATION. Smoking Status: Current Every Day Smoker Alcohol Use: None Drug Use: Marijuana Allergies: Allergies: Coded Allergies: No Known Drug Allergies (Unverified , 12/05/17) Family History: Family History: Hypertension Social History: Social History: She does not drink smoke or take drugs Current Medications: Current Medications Current Medications Acetaminophen (Tylenol) 1,000 mg 1X ONCE PO Last administered on 10/09/19at 08: 06; Start 10/09/19 at 07:15; Stop 10/09/19 at 07:16; Status DC Vancomycin HCl 1.5 gm/Sodium Chloride 500 ml @ 250 mls/hr 1X ONCE IV Last administered on 10/09/19at 10:09; Start 10/09/19 at 09:45; Stop 10/09/19 at 11:44 Cefepime HCl (Maxipime) 1 gm 1X ONCE IVP Last administered on 10/09/19at 10:07; Start 10/09/19 at 09:15; Stop 10/09/19 at 09:18; Status DC Hydralazine HCl (Apresoline) 75 mg TID PO ; Start 10/09/19 at 14:00 Amlodipine Besylate (Norvasc) 10 mg 1X ONCE PO Last administered on 10/09/19at 10:06; Start 10/09/19 at 10:30; Stop 10/09/19 at 10:31; Status DC Carvedilol (Coreg) 25 mg BIDWMEALS PO ; Start 10/09/19 at 11:00 Gabapentin (Neurontin) 300 mg 1X ONCE PO Last administered on 10/09/19at 10:29; Start 10/09/19 at 10:15; Stop 10/09/19 at 10:16; Status DC Ondansetron HCl (Zofran) 4 mg PRN Q8HRS PRN IV NAUSEA/VOMITING; Start 10/09/19 at 10:30; Stop 10/10/19 at 10:29 Active Scripts Active Tramadol Hcl 50 Mg Tablet 50 Mg PO PRN Q4HRS PRN 4 Days Ondansetron Odt (Ondansetron) 4 Mg Tab.rapdis 4 Mg PO PRN Q6HRS PRN 14 Days Dok (Docusate Sodium) 100 Mg Capsule 100 Mg PO PRN BID PRN 30 Days Bisacodyl 10 Mg Supp.rect 10 Mg IN PRN DAILY PRN 14 Days Gabapentin 300 Mg Capsule 300 Mg PO DAILY08 30 Days Keppra (Levetiracetam) 250 Mg Tablet 375 Mg PO BID 30 Days Hydralazine Hcl 50 Mg Tablet 75 Mg PO BID 30 Days Proair Hfa (Albuterol Sulfate) 8.5 Gm Hfa.aer.ad 2.5 Mg NEB PRN Q4HRS PRN 14 Days Amitiza (Lubiprostone) 24 Mcg Capsule 24 Mcg PO BIDWMEALS 30 Days [Diclofenac Sodium] 100 GM Gel..gram. 1 Day TP BID 30 Days Reported Coumadin (Warfarin Sodium) 4 Mg Tablet 1 Tab PO DAILY Renvela (Sevelamer Carbonate) 800 Mg Tablet 1 Tab PO TID 30 Days Wendy-Marvin Tablet (Folic Acid/Vitamin B Comp W-C) 0.8 Mg Tablet 1 Tab PO DAILY 30 Days Protonix (Pantoprazole Sodium) 20 Mg Tablet.dr 2 Tab PO DAILY Carvedilol 25 Mg Tablet 25 Mg PO BIDWMEALS Aspirin 81 Mg Tab.chew 1 Tab PO DAILY Amlodipine Besylate 10 Mg Tablet 10 Mg PO DAILY ROS: Review of Systems Review of System REVIEW OF SYSTEMS: GENERAL: Denies weakness SKIN: No bruising, hair changes or rashes. EYES: No blurred, double or loss of vision. NOSE AND THROAT: No history of nosebleeds, hoarseness or sore throat. HEART: No history of palpitations, chest pain or shortness of breath on exertion. LUNGS: Complains of cough and shortness of breath GASTROINTESTINAL: Denies changes in appetite, nausea, vomiting, diarrhea or constipation. GENITOURINARY: No history of frequency, urgency, hesitancy or nocturia. NEUROLOGIC: Denies history of numbness, tingling, or tremor. PSYCHIATRIC: No history of panic, anxiety or depression. ENDOCRINE: No history of heat or cold intolerance, polyuria or polydipsia. EXTREMITIES: Denies joint pain, pain on walking or stiffness. Physical Exam: Vital Signs: Vital Signs Date Time Temp Pulse Resp B/P (MAP) Pulse Ox O2 Delivery O2 Flow Rate FiO2 10/09/19 10:33 90 22 168/79 (108) 100 Nasal Cannula 4.0 10/09/19 07:00 98.2 98.2 Physcial Exam: GEN: No apparent distress. Alert and oriented HEENT: Normal cephalic, atraumatic, external auditory canals are patent EYES: Extraocular muscles are intact, pupil are equally round and reactive to light and accommodation MUSCULOSKELETAL: Well developed , well nourished, good range of motion ENDOCRINE: No thyromegaly was palpated LYMPHATICS: No cervical chain or axillary nodes were noted HEMATOPOIETIC: No bruising NECK: Supple, no JVD, no thyromegaly was noted LUNGS: Bibasilar crackles HEART: RRR, S!, S2 present. Peripheral pulses intact, no obvious murmurs noted ABDOMEN: Soft, nontender. Positive bowel sounds, no organomegaly, normal bowel sounds EXTREMITIES: Without clubbing, cyanosis, or edema. Pedal pulses intact. Negative Homans sign NEUROLOGIC: Normal speech and tone. A&O x 3, moves all extremities, no obvious focal deficits PSYCHIATRIC: Normal affect, normal mood. Stable SKIN: No ulcerations or rashes, good skin turgor, no jaundice VASCULAR: Good capillary refill, neurovascular bundle appears to be intact Labs: Labs: Laboratory Tests Test 10/09/19 07:45 White Blood Count 14.5 x10^3/uL (4.0-11.0) Red Blood Count 2.78 x10^6/uL (3.50-5.40) Hemoglobin 8.1 g/dL (12.0-15.5) Hematocrit 25.4 % (36.0-47.0) Mean Corpuscular Volume 91 fL (79-100) Mean Corpuscular Hemoglobin 29 pg (25-35) Mean Corpuscular Hemoglobin Concent 32 g/dL (31-37) Red Cell Distribution Width 20.6 % (11.5-14.5) Platelet Count 349 x10^3/uL (140-400) Neutrophils (%) (Auto) 79 % (31-73) Lymphocytes (%) (Auto) 8 % (24-48) Monocytes (%) (Auto) 7 % (0-9) Eosinophils (%) (Auto) 5 % (0-3) Basophils (%) (Auto) 0 % (0-3) Neutrophils # (Auto) 11.5 x10^3/uL (1.8-7.7) Lymphocytes # (Auto) 1.1 x10^3/uL (1.0-4.8) Monocytes # (Auto) 1.0 x10^3/uL (0.0-1.1) Eosinophils # (Auto) 0.8 x10^3/uL (0.0-0.7) Basophils # (Auto) 0.1 x10^3/uL (0.0-0.2) Platelet Estimate Adequate (ADEQUATE) Large Platelets Few Anisocytosis Mod Schistocytes Few Prothrombin Time 31.4 SEC (11.7-14.0) Prothromb Time International Ratio 3.0 (0.8-1.1) Sodium Level 134 mmol/L (136-145) Potassium Level 5.6 mmol/L (3.5-5.1) Chloride Level 98 mmol/L (98-107) Carbon Dioxide Level 21 mmol/L (21-32) Anion Gap 15 (6-14) Blood Urea Nitrogen 84 mg/dL (7-20) Creatinine 13.1 mg/dL (0.6-1.0) Estimated GFR (Cockcroft-Gault) 3.9 BUN/Creatinine Ratio 6 (6-20) Glucose Level 186 mg/dL (70-99) Calcium Level 8.0 mg/dL (8.5-10.1) Magnesium Level 2.5 mg/dL (1.8-2.4) Total Bilirubin 0.5 mg/dL (0.2-1.0) Aspartate Amino Transf (AST/SGOT) 28 U/L (15-37) Alanine Aminotransferase (ALT/SGPT) 37 U/L (14-59) Alkaline Phosphatase 193 U/L (46-116) Troponin I Quantitative 0.026 ng/mL (0.000-0.055) OT-Fqc-[id number]-Type Natriuretic Peptide > 44112 pg/mL (0-124) Total Protein 8.4 g/dL (6.4-8.2) Albumin 3.2 g/dL (3.4-5.0) Albumin/Globulin Ratio 0.6 (1.0-1.7) Serum Test, Qualitative Negative (NEG) Laboratory Tests Test 10/09/19 07:45 White Blood Count 14.5 x10^3/uL (4.0-11.0) Red Blood Count 2.78 x10^6/uL (3.50-5.40) Hemoglobin 8.1 g/dL (12.0-15.5) Hematocrit 25.4 % (36.0-47.0) Mean Corpuscular Volume 91 fL (79-100) Mean Corpuscular Hemoglobin 29 pg (25-35) Mean Corpuscular Hemoglobin Concent 32 g/dL (31-37) Red Cell Distribution Width 20.6 % (11.5-14.5) Platelet Count 349 x10^3/uL (140-400) Neutrophils (%) (Auto) 79 % (31-73) Lymphocytes (%) (Auto) 8 % (24-48) Monocytes (%) (Auto) 7 % (0-9) Eosinophils (%) (Auto) 5 % (0-3) Basophils (%) (Auto) 0 % (0-3) Neutrophils # (Auto) 11.5 x10^3/uL (1.8-7.7) Lymphocytes # (Auto) 1.1 x10^3/uL (1.0-4.8) Monocytes # (Auto) 1.0 x10^3/uL (0.0-1.1) Eosinophils # (Auto) 0.8 x10^3/uL (0.0-0.7) Basophils # (Auto) 0.1 x10^3/uL (0.0-0.2) Platelet Estimate Adequate (ADEQUATE) Large Platelets Few Anisocytosis Mod Schistocytes Few Prothrombin Time 31.4 SEC (11.7-14.0) Prothromb Time International Ratio 3.0 (0.8-1.1) Sodium Level 134 mmol/L (136-145) Potassium Level 5.6 mmol/L (3.5-5.1) Chloride Level 98 mmol/L (98-107) Carbon Dioxide Level 21 mmol/L (21-32) Anion Gap 15 (6-14) Blood Urea Nitrogen 84 mg/dL (7-20) Creatinine 13.1 mg/dL (0.6-1.0) Estimated GFR (Cockcroft-Gault) 3.9 BUN/Creatinine Ratio 6 (6-20) Glucose Level 186 mg/dL (70-99) Calcium Level 8.0 mg/dL (8.5-10.1) Magnesium Level 2.5 mg/dL (1.8-2.4) Total Bilirubin 0.5 mg/dL (0.2-1.0) Aspartate Amino Transf (AST/SGOT) 28 U/L (15-37) Alanine Aminotransferase (ALT/SGPT) 37 U/L (14-59) Alkaline Phosphatase 193 U/L (46-116) Troponin I Quantitative 0.026 ng/mL (0.000-0.055) OC-Lgj-O-Type Natriuretic Peptide > 25141 pg/mL (0-124) Total Protein 8.4 g/dL (6.4-8.2) Albumin 3.2 g/dL (3.4-5.0) Albumin/Globulin Ratio 0.6 (1.0-1.7) Serum Test, Qualitative Negative (NEG) Images: Images Chest x-ray shows vascular congestion Assessment/Plan Assessment/Plan Volume overload secondary to severe noncompliance with dialysis Respiratory failure Hypoxia Plan Admit Consult nephrology and cardiology Try to get her dialyzed today Trend labs O2 per nasal cannula Rule out COVID-19 Respiratory isolation Home meds DVT prophylaxis Full code Prognosis guarded if she does not follow-up closely with dialysis Justicifation of Admission Dx: Justifications for Admission: Justification of Admission Dx: Yes Respiratory Failure: Severe Resp Distress Chronic Renal Failure: Electrolyte Abnormality JULIAN GONSALVES III DO Oct 09, 2019 11:20
--- NOTE | 2019-10-09 11:20 | PDOC2 ---
CONSULT Date of Consult Date of Consult DATE: 10/09/19 TIME: 11:03 Reason for Consult Reason for Consult: ESRD Source Source: Chart review, Patient History of Present Illness Reason for Visit: Patient is a 34-year-old AAF female PMH of DM, HTN ,ESRD on HD TTS, Chronic Non complaince, Frequent hospitalizations, presents with c/o shortness of breath. She states she has had progressive shortness of breath over the past 2 days. She denies any cough, No CP . She reports orthopnea . She missed HD on Tuesday, her last HD was of last week per patient She denies any fevers/Chills . She was hospitalized for COVID-19 Pneumonia approximately 2 weeks ago. She reports increased left lower extremity swelli ng ,has been present for several weeks to months and has been told that this may be gout. She is on Coumadin for history of PE She is chronically non complaint and has missed several dialysis appointments over the past month. Per EMS she was noted to have an O2 sats of 80% which improved with 4 L by NC. Normally she doesnt use O2 at home She has a left upper extremity fistula which needs to be revised. Past Medical History Cardiovascular: HTN Heme/Onc: Other Psych: Anxiety Renal/: Chronic renal failure Endocrine: Diabetes, Hyperparathyroidism Past Surgical History Past Surgical History: , Other Family History Family History: Hypertension Social History Drugs: Marijuana Current Medications Current Medications Current Medications Acetaminophen (Tylenol) 1,000 mg 1X ONCE PO Last administered on 10/09/19at 08:06; Start 10/09/19 at 07:15; Stop 10/09/19 at 07:16; Status DC Vancomycin HCl 1.5 gm/Sodium Chloride 500 ml @ 250 mls/hr 1X ONCE IV Last administered on 10/09/19at 10:09; Start 10/09/19 at 09:45; Stop 10/09/19 at 11:44 Cefepime HCl (Maxipime) 1 gm 1X ONCE IVP Last administered on 10/09/19at 10:07; Start 10/09/19 at 09:15; Stop 10/09/19 at 09:18; Status DC Hydralazine HCl (Apresoline) 75 mg TID PO ; Start 10/09/19 at 14:00 Amlodipine Besylate (Norvasc) 10 mg 1X ONCE PO Last administered on 10/09/19at 10:06; Start 10/09/19 at 10:30; Stop 10/09/19 at 10:31; Status DC Carvedilol (Coreg) 25 mg BIDWMEALS PO ; Start 10/09/19 at 11:00 Gabapentin (Neurontin) 300 mg 1X ONCE PO Last administered on 10/09/19at 10:29; Start 10/09/19 at 10:15; Stop 10/09/19 at 10:16; Status DC Ondansetron HCl (Zofran) 4 mg PRN Q8HRS PRN IV NAUSEA/VOMITING; Start 10/09/19 at 10:30; Stop 10/10/19 at 10:29 Active Scripts Active Tramadol Hcl 50 Mg Tablet 50 Mg PO PRN Q4HRS PRN 4 Days Ondansetron Odt (Ondansetron) 4 Mg Tab.rapdis 4 Mg PO PRN Q6HRS PRN 14 Days Dok (Docusate Sodium) 100 Mg Capsule 100 Mg PO PRN BID PRN 30 Days Bisacodyl 10 Mg Supp.rect 10 Mg IN PRN DAILY PRN 14 Days Gabapentin 300 Mg Capsule 300 Mg PO DAILY08 30 Days Keppra (Levetiracetam) 250 Mg Tablet 375 Mg PO BID 30 Days Hydralazine Hcl 50 Mg Tablet 75 Mg PO BID 30 Days Proair Hfa (Albuterol Sulfate) 8.5 Gm Hfa.aer.ad 2.5 Mg NEB PRN Q4HRS PRN 14 Days Amitiza (Lubiprostone) 24 Mcg Capsule 24 Mcg PO BIDWMEALS 30 Days [Diclofenac Sodium] 100 GM Gel..gram. 1 Day TP BID 30 Days Reported Coumadin (Warfarin Sodium) 4 Mg Tablet 1 Tab PO DAILY Renvela (Sevelamer Carbonate) 800 Mg Tablet 1 Tab PO TID 30 Days Wendy-Marvin Tablet (Folic Acid/Vitamin B Comp W-C) 0.8 Mg Tablet 1 Tab PO DAILY 30 Days Protonix (Pantoprazole Sodium) 20 Mg Tablet.dr 2 Tab PO DAILY Carvedilol 25 Mg Tablet 25 Mg PO BIDWMEALS Aspirin 81 Mg Tab.chew 1 Tab PO DAILY Amlodipine Besylate 10 Mg Tablet 10 Mg PO DAILY Allergies Allergies: Coded Allergies: No Known Drug Allergies (Unverified , 12/05/17) ROS Review of System As per HPI, rest of the ROS is negative Physical Exam Physical Exam General: NAD, she was seen in her rom and later she was with her mother on the 6th floor, ambulating HEENT: OM moist , On O2 by NC Neck Supple Lungs: decreased at bases, Non labored Heart: S1S2, Abdomen: Normal bowel sounds, Soft, No tenderness, Extremities: No edema, N Skin: No rashes, Neuro: grossly normal No tomlinson Vital Signs Vital Signs Date Time Temp Pulse Resp B/P (MAP) Pulse Ox O2 Delivery O2 Flow Rate FiO2 10/09/19 10:06 98 180/82 10/09/19 07:00 98.2 22 100 4.0 98.2 Assessment & Plan ESRD- On HD TTS Missed treatment on Tuesday, chronic Non compliance, regularly skips treatment Dialysis today , discussed treatment plan with Sheron HyperKalemia, sec to missed treatments, Non compliance with HD and Dietary recommendations Shortness of Breath- Missed treatments , Cxr reviewed, HD with [facility] today Was CoVid Pneumonia 09/23 and was at [facility] dced on 09/27 Abnormal CxR - Increased interstitial thickening, may represent pulmonary edema. Increased right mid and basilar consolidation. Small right pleural effusion, unchanged. Hx of Acute on chronic diastolic HF; Seen by cardiology in the past HTN; labile antihypertensives, has been followed by card at previous hospitalizations Anemia- stable, SHANAE per protocol Diabetes, II Moderate mitral regurgitation Chronic Non Complaince - regularly skips HD Hx of Polysubstance abuse Labs Labs Laboratory Tests Test 10/09/19 07:45 White Blood Count 14.5 x10^3/uL (4.0-11.0) Red Blood Count 2.78 x10^6/uL (3.50-5.40) Hemoglobin 8.1 g/dL (12.0-15.5) Hematocrit 25.4 % (36.0-47.0) Mean Corpuscular Volume 91 fL (79-100) Mean Corpuscular Hemoglobin 29 pg (25-35) Mean Corpuscular Hemoglobin Concent 32 g/dL (31-37) Red Cell Distribution Width 20.6 % (11.5-14.5) Platelet Count 349 x10^3/uL (140-400) Neutrophils (%) (Auto) 79 % (31-73) Lymphocytes (%) (Auto) 8 % (24-48) Monocytes (%) (Auto) 7 % (0-9) Eosinophils (%) (Auto) 5 % (0-3) Basophils (%) (Auto) 0 % (0-3) Neutrophils # (Auto) 11.5 x10^3/uL (1.8-7.7) Lymphocytes # (Auto) 1.1 x10^3/uL (1.0-4.8) Monocytes # (Auto) 1.0 x10^3/uL (0.0-1.1) Eosinophils # (Auto) 0.8 x10^3/uL (0.0-0.7) Basophils # (Auto) 0.1 x10^3/uL (0.0-0.2) Platelet Estimate Adequate (ADEQUATE) Large Platelets Few Anisocytosis Mod Schistocytes Few Prothrombin Time 31.4 SEC (11.7-14.0) Prothromb Time International Ratio 3.0 (0.8-1.1) Sodium Level 134 mmol/L (136-145) Potassium Level 5.6 mmol/L (3.5-5.1) Chloride Level 98 mmol/L (98-107) Carbon Dioxide Level 21 mmol/L (21-32) Anion Gap 15 (6-14) Blood Urea Nitrogen 84 mg/dL (7-20) Creatinine 13.1 mg/dL (0.6-1.0) Estimated GFR (Cockcroft-Gault) 3.9 BUN/Creatinine Ratio 6 (6-20) Glucose Level 186 mg/dL (70-99) Calcium Level 8.0 mg/dL (8.5-10.1) Magnesium Level 2.5 mg/dL (1.8-2.4) Total Bilirubin 0.5 mg/dL (0.2-1.0) Aspartate Amino Transf (AST/SGOT) 28 U/L (15-37) Alanine Aminotransferase (ALT/SGPT) 37 U/L (14-59) Alkaline Phosphatase 193 U/L (46-116) Troponin I Quantitative 0.026 ng/mL (0.000-0.055) AO-Ete-A-Type Natriuretic Peptide > 32963 pg/mL (0-124) Total Protein 8.4 g/dL (6.4-8.2) Albumin 3.2 g/dL (3.4-5.0) Albumin/Globulin Ratio 0.6 (1.0-1.7) Serum Test, Qualitative Negative (NEG) Laboratory Tests Test 10/09/19 07:45 White Blood Count 14.5 x10^3/uL (4.0-11.0) Red Blood Count 2.78 x10^6/uL (3.50-5.40) Hemoglobin 8.1 g/dL (12.0-15.5) Hematocrit 25.4 % (36.0-47.0) Mean Corpuscular Volume 91 fL (79-100) Mean Corpuscular Hemoglobin 29 pg (25-35) Mean Corpuscular Hemoglobin Concent 32 g/dL (31-37) Red Cell Distribution Width 20.6 % (11.5-14.5) Platelet Count 349 x10^3/uL (140-400) Neutrophils (%) (Auto) 79 % (31-73) Lymphocytes (%) (Auto) 8 % (24-48) Monocytes (%) (Auto) 7 % (0-9) Eosinophils (%) (Auto) 5 % (0-3) Basophils (%) (Auto) 0 % (0-3) Neutrophils # (Auto) 11.5 x10^3/uL (1.8-7.7) Lymphocytes # (Auto) 1.1 x10^3/uL (1.0-4.8) Monocytes # (Auto) 1.0 x10^3/uL (0.0-1.1) Eosinophils # (Auto) 0.8 x10^3/uL (0.0-0.7) Basophils # (Auto) 0.1 x10^3/uL (0.0-0.2) Platelet Estimate Adequate (ADEQUATE) Large Platelets Few Anisocytosis Mod Schistocytes Few Prothrombin Time 31.4 SEC (11.7-14.0) Prothromb Time International Ratio 3.0 (0.8-1.1) Sodium Level 134 mmol/L (136-145) Potassium Level 5.6 mmol/L (3.5-5.1) Chloride Level 98 mmol/L (98-107) Carbon Dioxide Level 21 mmol/L (21-32) Anion Gap 15 (6-14) Blood Urea Nitrogen 84 mg/dL (7-20) Creatinine 13.1 mg/dL (0.6-1.0) Estimated GFR (Cockcroft-Gault) 3.9 BUN/Creatinine Ratio 6 (6-20) Glucose Level 186 mg/dL (70-99) Calcium Level 8.0 mg/dL (8.5-10.1) Magnesium Level 2.5 mg/dL (1.8-2.4) Total Bilirubin 0.5 mg/dL (0.2-1.0) Aspartate Amino Transf (AST/SGOT) 28 U/L (15-37) Alanine Aminotransferase (ALT/SGPT) 37 U/L (14-59) Alkaline Phosphatase 193 U/L (46-116) Troponin I Quantitative 0.026 ng/mL (0.000-0.055) ZK-Eqc-P-Type Natriuretic Peptide > 05074 pg/mL (0-124) Total Protein 8.4 g/dL (6.4-8.2) Albumin 3.2 g/dL (3.4-5.0) Albumin/Globulin Ratio 0.6 (1.0-1.7) Serum Test, Qualitative Negative (NEG) Review All relevant outside records, renal labs, imaging studies, telemetry/EKG's were reviewed. Images Images CXr-- 1. Increased interstitial thickening, may represent pulmonary edema. 2. Increased right mid and basilar consolidation. 3. Small right pleural effusion, unchanged. KADY STEARNS MD Oct 09, 2019 11:20
[2019-10-09 12:05] VITALS: BP 147/81
[2019-10-09] MEDS ORDERED: IV NORMAL SALINE 1000ML BAG 1,000 ML IV PRN ×2 (13:14)
[2019-10-09] MEDS ORDERED: ACETAMINOPHEN 500 MG TABLET PO PRN (13:15)
[2019-10-09] MEDS ORDERED: diphenhydrAMINE 50 MG/ML VIAL IV PRN ×2 (13:15)
[2019-10-09] MEDS ORDERED: ALBUMIN HUMAN 25% 200 ML IV PRN (13:15)
[2019-10-09] MEDS ORDERED: DIALYSIS PATIENT. MC PRN (13:15)
[2019-10-09] MEDS ORDERED: 0.9 % SODIUM CHLORIDE 10 ML DISP.SYRIN. IV PRN ×2 (13:15)
--- NOTE | 2019-10-09 13:20 | NUR ---
PATIENT ARRIVED ON THE UNIT PER BED, ALERT AND VERBALLY RESPONSIVE BUT WITH NOTICEABLE SOA, PERIORBITAL EDEMA AND BILAT. LOWER EXTREMITY EDEMA 2-3PLUS ELEVATED UP ON PILLOWS.
[2019-10-09] MEDS: MORPHINE SULFATE 2 MG/ML VIAL. IV PRN ×3 (13:30→20:46)
[2019-10-09] MEDS: hydrALAZINE 25 MG TABLET PO SCH ×2 (18:12→20:45)
[2019-10-09 19:00] VITALS: BP 157/75
[2019-10-09 23:00] VITALS: BP 167/87
[2019-10-09] MEDS ORDERED: traMADol 50 MG TABLET PO PRN ×2 (23:00→23:15)
[2019-10-09] MEDS: HYDROmorphone 2 MG/ML VIAL IVP PRN (23:48)
[2019-10-10] MEDS: HYDROmorphone 2 MG/ML VIAL IVP PRN ×4 (01:51→15:06)
[2019-10-10 03:00] VITALS: BP 155/74
[2019-10-10 06:47] LABS: BASO # 0.1 x10^3/uL (0.0-0.2); BASO % 1 % (0-3); EOS # 0.5 x10^3/uL (0.0-0.7); EOS % 6 % (0-3); HEMATOCRIT 23.2 % (36.0-47.0); HEMOGLOBIN 7.6 g/dL (12.0-15.5); LYMPH # 0.8 x10^3/uL (1.0-4.8); LYMPH % 10 % (24-48); MEAN CORPUSCULAR HEMOGLOBIN 30 pg (25-35); MEAN CORPUSCULAR HGB CONC 33 g/dL (31-37); MEAN CORPUSCULAR VOLUME 91 fL (79-100); MONO # 0.7 x10^3/uL (0.0-1.1); MONO % 9 % (0-9); NEUT # 5.8 x10^3/uL (1.8-7.7); NEUT % 73 % (31-73); PLATELET COUNT 301 x10^3/uL (140-400); RED BLOOD COUNT 2.55 x10^6/uL (3.50-5.40); RED CELL DISTRIBUTION WIDTH 20.5 % (11.5-14.5); WHITE BLOOD COUNT 7.9 x10^3/uL (4.0-11.0)
[2019-10-10 07:00] VITALS: BP 146/70
[2019-10-10 07:04] LABS: CALCIUM 8.3 mg/dL (8.5-10.1); CREATININE 7.4 mg/dL (0.6-1.0); GFR 7.6; POTASSIUM 4.8 mmol/L (3.5-5.1)
[2019-10-10] MEDS: hydrALAZINE 25 MG TABLET PO SCH ×2 (10:01→15:06)
[2019-10-10] MEDS: CARVEDILOL 12.5 MG TABLET. PO SCH (10:01)
[2019-10-10 11:00] VITALS: BP 140/67
[2019-10-10] MEDS ORDERED: oxyCODONE/APAP 10/325 1 TAB TABLET PO ONE (11:30)
--- NOTE | 2019-10-10 11:38 | PDOC ---
[employer] PROGRESS NOTE Date of Service DOS: DATE: 10/10/19 TIME: 11:33 Chief Complaint Chief Complaint Volume overload secondary to severe noncompliance with dialysis Respiratory failure Hypoxia History of Present Illness History of Present Illness 10/10/2019 Patient seen and examined Probable discharge today Respiratory isolation COVID-19 pending Discussed with RN Chart reviewed Vitals/I&O Vitals/I&O: Vital Signs Date Time Temp Pulse Resp B/P (MAP) Pulse Ox O2 Delivery O2 Flow Rate FiO2 10/10/19 10:01 82 146/70 10/10/19 10:00 18 Room Air 10/10/19 07:00 98.3 2.0 98.3 10/10/19 06:16 96 I & O 10/09/19 10/09/19 10/10/19 15:00 23:00 07:00 Output Total 0 ml Balance 0 ml Physical Exam General: Alert, Oriented X3, No acute distress Heart: Regular rate Lungs: Clear Abdomen: Normal bowel sounds, No tenderness Extremities: No clubbing, No cyanosis Skin: No rashes, No significant lesion Labs Labs: Laboratory Tests Test 10/10/19 05:55 White Blood Count 7.9 x10^3/uL (4.0-11.0) Red Blood Count 2.55 x10^6/uL (3.50-5.40) Hemoglobin 7.6 g/dL (12.0-15.5) Hematocrit 23.2 % (36.0-47.0) Mean Corpuscular Volume 91 fL (79-100) Mean Corpuscular Hemoglobin 30 pg (25-35) Mean Corpuscular Hemoglobin Concent 33 g/dL (31-37) Red Cell Distribution Width 20.5 % (11.5-14.5) Platelet Count 301 x10^3/uL (140-400) Neutrophils (%) (Auto) 73 % (31-73) Lymphocytes (%) (Auto) 10 % (24-48) Monocytes (%) (Auto) 9 % (0-9) Eosinophils (%) (Auto) 6 % (0-3) Basophils (%) (Auto) 1 % (0-3) Neutrophils # (Auto) 5.8 x10^3/uL (1.8-7.7) Lymphocytes # (Auto) 0.8 x10^3/uL (1.0-4.8) Monocytes # (Auto) 0.7 x10^3/uL (0.0-1.1) Eosinophils # (Auto) 0.5 x10^3/uL (0.0-0.7) Basophils # (Auto) 0.1 x10^3/uL (0.0-0.2) Sodium Level 137 mmol/L (136-145) Potassium Level 4.8 mmol/L (3.5-5.1) Chloride Level 100 mmol/L (98-107) Carbon Dioxide Level 28 mmol/L (21-32) Anion Gap 9 (6-14) Blood Urea Nitrogen 37 mg/dL (7-20) Creatinine 7.4 mg/dL (0.6-1.0) Estimated GFR (Cockcroft-Gault) 7.6 Glucose Level 154 mg/dL (70-99) Calcium Level 8.3 mg/dL (8.5-10.1) Assessment and Plan Assessmemt and Plan Problems Medical Problems: (1) Acute respiratory failure with hypoxia Status: Acute (2) ESRD (end stage renal disease) Status: Acute (3) Hypertension Status: Acute ASSESSMENT Volume overload secondary to severe noncompliance with dialysis Respiratory failure Hypoxia PLAN Probable discharge today Outpatient dialysis Tuesday, , Tuesday Trend labs O2 per nasal cannula Rule out COVID-19 Respiratory isolation Home meds Metronidazole for bacterial vaginosis Solumedrol DVT prophylaxis Full code Prognosis guarded if she does not follow-up closely with dialysis Appreciate nephrology input Comment Review of Relevant I have reviewed the following items jamie (where applicable) has been applied. Medications: Current Medications Medications (Trade) Dose Ordered Sig/[employer] Route PRN Reason Start Time Stop Time Status Last Admin Dose Admin Hydralazine HCl (Apresoline) 75 mg TID PO 10/09/19 14:00 10/10/19 10:01 Morphine Sulfate (Morphine Sulfate) 2 mg PRN Q2HR PRN IV PAIN 10/09/19 13:15 10/09/19 23:00 DC 10/09/19 20:46 Hydromorphone HCl (Dilaudid) 0.4 mg PRN Q4HRS PRN IVP SEVERE PAIN 7-10 10/09/19 23:00 10/10/19 10:00 Tramadol HCl (Ultram) 50 mg PRN Q12HRS PRN PO MODERATE PAIN 4-6 10/09/19 23:15 10/09/19 23:18 Justicifation of Admission Dx: Justifications for Admission: Justification of Admission Dx: Yes Respiratory Failure: Severe Resp Distress Chronic Renal Failure: Electrolyte Abnormality JULIAN GONSAVLES III DO Oct 10, 2019 11:38
[2019-10-10 15:21] VITALS: BP 144/65
--- NOTE | 2019-10-10 17:11 | NUR ---
SW following. Spoke with RN and reviewed chart. Pt to discharge home today self-care. No SW needs identified at discharge.
--- NOTE | 2019-10-10 17:15 | NUR ---
Pt discharged to home by cab. Discharge instructions reviewed and questions answered.
[2019-10-10 22:09] LABS: GC PROBE Negative (Negative)
--- NOTE | 2019-10-11 09:19 | NUR ---
Called patient at [phone] and notified her of positive COVID test results. Patient discharged home yesterday with instructions to quarantine. She verbalized understanding. (Shelby Aparicio RN).
== END 2019-10-10 17:10 | disposition home or self-care (01) | DRG 640 ==
LOC: ER 06:51 → 6 SOUTH 09:45
PROVIDERS: ADMIT Internal Medicine; ATTEND Internal Medicine
PROC: 5A1D70Z Performance of Urinary Filtration, Intermittent, Less than 6 Hours Per Day (ICD-10-PCS; principal; 2019-10-09)
DX: E87.70 Fluid overload, unspecified (principal); U07.1 COVID-19; N18.6 End stage renal disease; J96.91 Respiratory failure, unspecified with hypoxia; I12.0 Hypertensive chronic kidney disease with stage 5 chronic kidney disease or end stage renal disease; J81.1 Chronic pulmonary edema; D64.9 Anemia, unspecified; E11.22 Type 2 diabetes mellitus with diabetic chronic kidney disease; E11.65 Type 2 diabetes mellitus with hyperglycemia; F41.9 Anxiety disorder, unspecified; Z78.9 Other specified health status; Z79.01 Long term (current) use of anticoagulants; Z82.49 Family history of ischemic heart disease and other diseases of the circulatory system; Z86.711 Personal history of pulmonary embolism; Z87.01 Personal history of pneumonia (recurrent); Z87.891 Personal history of nicotine dependence; Z91.14 Patient's other noncompliance with medication regimen; Z91.15 Patient's noncompliance with renal dialysis; Z91.19 Patient's noncompliance with other medical treatment and regimen; Z98.891 History of uterine scar from previous surgery; Z99.2 Dependence on renal dialysis; E21.3 Hyperparathyroidism, unspecified; F32.9 Major depressive disorder, single episode, unspecified; G62.9 Polyneuropathy, unspecified; M19.90 Unspecified osteoarthritis, unspecified site
CPT/HCPCS: 36415; 71045; 80048; 80053; 83735; 83880; 84484; 84703; 85025; 85610; 87040; 87491; 87591; 93005; 93971; 96365; 96375; 99285; J0692; J1170; J2270; J3370; J7040; Q0111; G0378; U0003-CS

== ENCOUNTER 2020-11-02 22:21 | Inpatient (IN) | payer MEDICARE, OTHER ==
[~2020-11-02] VITALS: Ht 167.6 cm; Wt 67.2 kg
[~2020-11-02 22:21] MED LIST changes: +AMLO-187 PO; -AMLO10TA8 PO; +AMOX1TAB61 PO; +DOCU-148 PO; -DOCU-153 PO; +HYDR2TAB31 PO; +INSU100V31 SQ; +LORA-434 PO; +METR-34 PO; +METR500T PO; +NICO1PAT25 TP; +Smz/Tmp 800/160MG PO; +VITS42.55 TP; +WARF4TAB64 PO
--- NOTE | 2020-11-03 06:39 | PHYS DOC ---
Past Medical History Past Medical History: Anxiety, Arthritis, Depression, Diabetes-Type II, H ypertension, Renal Failure, Other Additional Past Medical Histor: NEUROPATHY, PE, FIBROIDS Past Surgical History: , Hysterectomy, Other Additional Past Surgical Histo: kidney biopsy,dialysis cath R chest,UTERINE ABLATION;L ARM GRAFT,R BKA,TOE Past Surgical History R finger amputation Smoking Status: Current Every Day Smoker Alcohol Use: None Drug Use: Marijuana General Adult EDM: Chief Complaint: SHORTNESS OF BREATH HPI: HPI: Patient is a 35 year old female with pmh of COPD, CHF, and ESRD on HD M/W/F presents with reports of SOA and cough that has been ongoing for last several days. Patient reports she was recently seen at on Tuesday for similar and discharged home Reports she missed HD because she was at . Reports now she feels like she is "fluid overloaded". Reports some chest discomfort. Reports pain to buttocks where she has a known ulceration. Denies wound care management. Also reports pain to right finger tips and right leg at site of amputations. Denies fever/chills. Reports generalized malaise and weakness. Denies known exposure to COVID-19. Denies vaccination for COVID-19. Review of Systems: Review of Systems: Constitutional: Denies fever or chills; reports malaise Eyes: Denies change in visual acuity, redness, or eye pain HENT: Denies nasal congestion or sore throat Respiratory: Reports cough and shortness of breath Cardiovascular: Denies chest pain or palpitations GI: Denies abdominal pain, nausea, vomiting, or diarrhea Musculoskeletal: Denies back pain; reports right finger pain and right leg pain at sites of amputations Integument: Denies rash or skin lesions Neurologic: Denies headache, focal weakness or sensory changes Complete systems were reviewed and found to be within normal limits, except as documented in this note. Heart Score: C/O Chest Pain: Yes HEART Score for Chest Pain: HEART Score for Chest Pain Response (Comments) Value History Moderately Suspicious 1 ECG Normal 0 Age < 45 0 Risk Factors >3 Risk Factors or Hx CAD 2 Troponin < Normal Limit 0 Total 3 Risk Factors: Risk Factors: DM, Current or recent (<one month) smoker, HTN, HLP, family history of CAD, obesity. Risk Scores: Score 0 - 3: 2.5% MACE over next 6 weeks - Discharge Home Score 4 - 6: 20.3% MACE over next 6 weeks - Admit for Clinical Observation Score 7 - 10: 72.7% MACE over next 6 weeks - Early Invasive Strategies Allergies: Allergies: Allergies Coded Allergies Type Severity Reaction Last Updated Verified No Known Drug Allergies 12/05/17 No Physical Exam: PE: Constitutional: Well developed, well nourished, uncomfortable, non-toxic appearance HENT: Normocephalic, atraumatic Eyes: Conjunctiva normal, no discharge Neck: Normal range of motion, supple, no meningeal signs Lungs & Thorax: Equal chest rise and fall, no respiratory distress Abdomen: Soft, no tenderness Skin: Warm, dry, decubitus ulceration Extremities: right finger tip partial amputation w/ thickened/darkened skin, ROM intact, right BKA, left AV fistula Neurologic: Alert and oriented X 3, no focal deficits noted Psychologic: Affect anxious, judgement normal Current Patient Data: Vital Signs: Vital Signs Date Time Temp Pulse Resp B/P (MAP) Pulse Ox O2 Delivery O2 Flow Rate FiO2 11/02/20 22:35 87 172/78 (95) 97 Nasal Cannula 6.0 EKG: EKG: @0728 NSR at 85bpm, NO ST elevation, QRS 88ms, QT/QTc 390/464ms, t wave inversion III Radiology/Procedures: Radiology/Procedures: PROCEDURE: CHEST AP ONLY EXAM: XR CHEST 1V 11/03/2020 6:48 AM CLINICAL INDICATION: Shortness of air COMPARISON: Chest radiograph 10/10/2020 TECHNIQUE: AP upright view of the chest FINDINGS: The cardiac silhouette is enlarged, unchanged. There are increased diffuse airspace opacities bilaterally. Small right pleural effusion. No pneumothorax. There are surgical clips in the left axilla. IMPRESSION: Cardiomegaly, increased bilateral opacities and small right pleural effusion, which can be seen with atypical pneumonia or pulmonary edema. Electronically signed by: Linda Curran MD (11/03/2020 7:23 AM) [id number] PROCEDURE: HAND LEFT 3V EXAM: XR HAND_LEFT 3 VIEWS 11/03/2020 6:48 AM CLINICAL INDICATION: Shortness of air COMPARISON: None TECHNIQUE: PA, oblique, and lateral views of the left hand FINDINGS: There has been amputation of the second through fifth digits. No acute fracture or osseous destruction. Alignment is normal. Joint spaces are maintained. There are vascular calcifications. IMPRESSION: Sequela of second through fifth digit amputations. No acute osseous abnormality. Electronically signed by: Linda Curran MD (11/03/2020 7:17 AM) [id number] Course & Med Decision Making: Course & Med Decision Making Pertinent Labs and Imaging studies reviewed. (See chart for details) Patient with hx of COPD, CHF, and ESRD on HD M/W/F presents with reports of progressive SOA. Patient wears supplemental O2 at 6L NC at baseline. Reports continues to smoke. Reports missed HD on Tuesday. Denies COVID vaccination. Afebrile and stable sats upon arrival. EKG stable. Labs obtained and posted to chart. Troponin WNL. WBC mildly elevated and lactic acid WNL. Hyperkalemia noted. CXR with signs of pulmonary edema. COVID testing obtained with negative rapid COVID test. PCR pending. Patient also with limb pain at site of amputations. No active signs of infection. Amputation sites on right hand with thickened/darkened skin. XR hand therefore obtained without acute process. Pain addressed. Likely secondary to phantom limb pain. Patient requiring admission for further evaluation and treatment. Discussed with Dr. Figueroa (hospitalist) who is in agreement with admit. Discussed case with Dr. Soto (nephrology) regarding need for HD. Discussed findings and plan with patient, who acknowledges understanding and agreement. COVID-19 CRITERIA: The patient was evaluated during the global COVID-19 pandemic, and that diagnosis was suspected/considered upon their initial presentation. Their evaluation, treatment and testing was consistent with current guidelines for patients who present with complaints or symptoms that may be related to COVID-19. Dragon Disclaimer: Alana Disclaimer: This electronic medical record was generated, in whole or in part, using a voice recognition dictation system. Departure Departure Impression: Primary Impression: Pulmonary edema Qualified Codes: J81.0 - Acute pulmonary edema Additional Impressions: Hyperkalemia ESRD (end stage renal disease) on dialysis Decubitus ulcer of back Qualified Codes: L89.109 - Pressure ulcer of unspecified part of back, unspecified stage Disposition: ADMITTED INPATIENT Admitting Physician: ELIZABETH Layne) Condition: GUARDED Referrals: NO PCP (PCP) Critical Care Time Critical care time was 30 minutes which includes time at bedside, spent in discussion of patient's care with specialists and/or family members, with interpretation of laboratory and/or radiological studies and is exclusive of procedures. COVID-19 Assessment: COVID-19 Patient Risks: Age 65 or older: No Sign of co-morbidity: Yes Exp to person + for COVID: No Exp to PUI: No Travel from affected area: No Lower respiratory symptoms: Yes Fever: No Other: Yes PPE Use: Full PPE with N95 mask or PAPR: Yes NOEMÍ NGO DO Nov 03, 2020 06:39
[2020-11-03] MEDS ORDERED: fentaNYL PF VIAL 100 MCG/2 ML VIAL IV ONE ×2 (07:00→09:45)
--- NOTE | 2020-11-03 07:19 | RAD ---
EXAM: XR HAND_LEFT 3 VIEWS 11/03/2020 6:48 AM CLINICAL INDICATION: Shortness of air COMPARISON: None TECHNIQUE: PA, oblique, and lateral views of the left hand FINDINGS: There has been amputation of the second through fifth digits. No acute fracture or osseous destruction. Alignment is normal. Joint spaces are maintained. There are vascular calcifications. IMPRESSION: Sequela of second through fifth digit amputations. No acute osseous abnormality. Electronically signed by: Linda Curran MD (11/03/2020 7:17 AM) [id number]
--- NOTE | 2020-11-03 07:25 | RAD ---
EXAM: XR CHEST 1V 11/03/2020 6:48 AM CLINICAL INDICATION: Shortness of air COMPARISON: Chest radiograph 10/10/2020 TECHNIQUE: AP upright view of the chest FINDINGS: The cardiac silhouette is enlarged, unchanged. There are increased diffuse airspace opacit ies bilaterally. Small right pleural effusion. No pneumothorax. There are surgical clips in the left axilla. IMPRESSION: Cardiomegaly, increased bilateral opacities and small right pleural effusion, which can be seen with atypical pneumonia or pulmonary edema. Electronically signed by: Linda Curran MD (11/03/2020 7:23 AM) [id number]
[2020-11-03 08:36] LABS: BASO # 0.1 x10^3/uL (0.0-0.2); BASO % 1 % (0-3); EOS # 1.1 x10^3/uL (0.0-0.7); EOS % 9 % (0-3); HEMATOCRIT 22.2 % (36.0-47.0); HEMOGLOBIN 7.3 g/dL (12.0-15.5); LYMPH # 0.9 x10^3/uL (1.0-4.8); LYMPH % 8 % (24-48); MEAN CORPUSCULAR HEMOGLOBIN 31 pg (25-35); MEAN CORPUSCULAR HGB CONC 33 g/dL (31-37); MEAN CORPUSCULAR VOLUME 94 fL (79-100); MONO # 1.1 x10^3/uL (0.0-1.1); MONO % 9 % (0-9); NEUT # 8.5 x10^3/uL (1.8-7.7); NEUT % 73 % (31-73); PLATELET COUNT 348 x10^3/uL (140-400); RED BLOOD COUNT 2.35 x10^6/uL (3.50-5.40); RED CELL DISTRIBUTION WIDTH 17.7 % (11.5-14.5); WHITE BLOOD COUNT 11.6 x10^3/uL (4.0-11.0)
[2020-11-03 08:48] LABS: CALCIUM 9.2 mg/dL (8.5-10.1); POTASSIUM 5.5 mmol/L (3.5-5.1)
[2020-11-03 08:53] LABS: PROTHROMBIN TIME PATIENT 16.2 SEC (11.7-14.0)
[2020-11-03 08:56] LABS: ALBUMIN 2.7 g/dL (3.4-5.0); ALBUMIN/GLOBULIN RATIO 0.5 (1.0-1.7); MAGNESIUM 2.9 mg/dL (1.8-2.4); TOTAL BILIRUBIN 0.4 mg/dL (0.2-1.0)
[2020-11-03 09:01] LABS: CREATINE KINASE 25 U/L (26-192)
[2020-11-03] MEDS ORDERED: fentaNYL PF VIAL 100 MCG/2 ML VIAL IM ONE (09:15)
[2020-11-03] MEDS ORDERED: DEXTROSE 50% 25 GM / 50ML DISP.SYRIN. IV PRN (09:15)
[2020-11-03 10:08] LABS: % BANDS 1 % (0-9); % EOS 6 % (0-5); % LYMPHS 14 % (24-48); % MONOS 8 % (0-10); % SEGS 71 % (35-66); ANISOCYTOSIS SLIGHT; PLT ESTIMATE ADEQUATE (ADEQUATE)
[2020-11-03] MEDS ORDERED: IV NORMAL SALINE 1000ML BAG 1,000 ML IV PRN ×2 (11:15)
[2020-11-03] MEDS ORDERED: DIALYSIS PATIENT. MC PRN ×2 (11:15)
[2020-11-03] MEDS ORDERED: ALBUMIN HUMAN 25% 100 ML IV PRN (11:15)
--- NOTE | 2020-11-03 11:42 | PDOC1 ---
History and Physical Date of Admission Date of Admission DATE: 11/03/20 TIME: 11:25 Identification/Chief Complaint Chief Complaint Shortness of breath Source Source: Chart review, Patient History of Present Illness History of Present Illness Patient is a 35-year-old female past medical history ESRD on HD, presents to the ED from her nursing facility with complaints of shortness of breath. Her [facility] facility. Normally wears 6 L O2 by nasal cannula, and was saturating in the high 90s on 6 L upon arrival to the ED. patient reportedly missed hemodialysis on Tuesday as she was being seen at . Labs on admission showed WBC 11.6, hemoglobin 7.3, hematocrit 22.2 sodium 132, potassium 5.5, BUN 87, creatinine 9.0, CBG 164, BNP >35,000, albumin 2.7, CRP 94.7. Chest x-ray showed cardiomegaly, increased bilateral opacities, and small right pleural effusion. Will admit patient for further medical management. Past Medical History Cardiovascular: CHF, HTN, Hyperlipidemia Pulmonary: Pulmonary embolus CENTRAL NERVOUS SYSTEM: Periperal neuropathy, Seizure Heme/Onc: Anemia NOS Psych: Anxiety, Depression Rheumatologic: Gout Renal/: Chronic renal failure Endocrine: Diabetes, Hyperparathyroidism Past Surgical History Past Surgical History: Hysterectomy Family History Family History: Diabetes, Hypertension, Kidney Disease Social History Smoke: <1 pack per day ALCOHOL: none Drugs: Marijuana Current Problem List Problem List Problems Medical Problems: (1) Pulmonary edema Status: Acute Current Medications Current Medications Current Medications Fentanyl Citrate (Fentanyl 2ml Vial) 75 mcg 1X ONCE IV Last administered on 11/03/20at 09:04; Start 11/03/20 at 07:00; Stop 11/03/20 at 09:03; Status DC Fentanyl Citrate (Fentanyl 2ml Vial) 75 mcg 1X ONCE IM ; Start 11/03/20 at 09: 15; Stop 11/03/20 at 09:06; Status DC Fentanyl Citrate (Fentanyl 2ml Vial) 75 mcg 1X ONCE IV Last administered on 11/03/20at 10:05; Start 11/03/20 at 09:45; Stop 11/03/20 at 09:46; Status DC Ondansetron HCl (Zofran) 4 mg PRN Q8HRS PRN IVP NAUSEA/VOMITING; Start 11/03/20 at 09:15; Stop 11/04/20 at 09:14 Fentanyl Citrate (Fentanyl 2ml Vial) 50 mcg PRN Q2HRS PRN IVP PAIN; Start 11/03/20 at 09:15 Insulin Human Lispro (HumaLOG) 0-5 UNITS TIDWMEALS SQ ; Start 11/03/20 at 12:00 Dextrose (Dextrose 50%-Water Syringe) 12.5 gm PRN Q15MIN PRN IV SEE COMMENTS; Start 11/03/20 at 09:15 Sodium Chloride 1,000 ml @ 1,000 mls/hr Q1H PRN IV hypotension; Start 11/03/20 at 11:15; Stop 11/03/20 at 17:14 Albumin Human 100 ml @ 100 mls/hr 1X PRN PRN IV Hypotension; Start 11/03/20 at 11:15; Stop 11/03/20 at 17:14 Sodium Chloride 1,000 ml @ 400 mls/hr Q2H30M PRN IV PATENCY; Start 11/03/20 at 11:15; Stop 11/03/20 at 23:14 Info (PHARMACY MONITORING -- do not chart) 1 each PRN DAILY PRN MC SEE COMMENTS; Start 11/03/20 at 11:15; Stop 11/03/20 at 11:18; Status DC Info (PHARMACY MONITORING -- do not chart) 1 each PRN DAILY PRN MC SEE COMMENTS; Start 11/03/20 at 11:15 Active Scripts Active Dilaudid (Hydromorphone Hcl) 2 Mg Tablet 1 Tab PO PRN TID PRN MDD 3 Tablet(s) 5 Days Gabapentin 300 Mg Capsule 300 Mg PO DAILY08 30 Days Ondansetron Odt (Ondansetron) 4 Mg Tab.rapdis 4 Mg PO PRN Q6HRS PRN 14 Days Bisacodyl 10 Mg Supp.rect 10 Mg MN PRN DAILY PRN 14 Days Keppra (Levetiracetam) 250 Mg Tablet 375 Mg PO BID 30 Days Hydralazine Hcl 50 Mg Tablet 75 Mg PO BID 30 Days Proair Hfa (Albuterol Sulfate) 8.5 Gm Hfa.aer.ad 2.5 Mg NEB PRN Q4HRS PRN 14 Days Amitiza (Lubiprostone) 24 Mcg Capsule 24 Mcg PO BIDWMEALS 30 Days [Diclofenac Sodium] 100 GM Gel..gram. 1 Day TP BID 30 Days Reported Warfarin Sodium 4 Mg Tablet 4 Mg PO DAILY Novolog (Insulin Aspart) 100 Unit/1 Ml Vial 0-12 Unit SQ TIDAC NICODERM CQ 14mg (Nicotine) 1 Each Patch.td24 1 Patch TP DAILY Acetaminophen 500 Mg Tablet 1,000 Mg PO TID A and D Ointment (Vits A and D/White Pet/Lanolin) 42.5 Gm Oint...g. 42.5 Gm TP BID Renvela (Sevelamer Carbonate) 800 Mg Tablet 1 Tab PO TID 30 Days Wendy-Marvin Tablet (Folic Acid/Vitamin B Comp W-C) 0.8 Mg Tablet 1 Tab PO DAILY 30 Days Protonix (Pantoprazole Sodium) 20 Mg Tablet.dr 2 Tab PO DAILY Carvedilol 25 Mg Tablet 25 Mg PO BIDWMEALS Aspirin 81 Mg Tab.chew 1 Tab PO DAILY Amlodipine Besylate 10 Mg Tablet 10 Mg PO DAILY Allergies Allergies: Coded Allergies: No Known Drug Allergies (Unverified , 12/05/17) ROS Review of System GENERAL: No history of weight change, weakness or fevers. SKIN: No bruising, hair changes or rashes. EYES: No blurred, double or loss of vision. NOSE AND THROAT: No history of nosebleeds, hoarseness or sore throat. HEART: Denies chest pain, denies palpitations. LUNGS: Shortness of breath. Denies hemoptysis, wheezing or shortness of breath. GASTROINTESTINAL: Denies nausea, vomiting, abdominal pain. GENITOURINARY: Denies dysuria, frequency, urgency, hematuria. NEUROLOGIC: Denies history of numbness, tingling, tremor or weakness. PSYCHIATRIC: Denies anxiety, denies depression. ENDOCRINE: No history of heat or cold intolerance, polyuria or polydipsia. EXTREMITIES: Denies muscle weakness, joint pain, pain on walking or stiffness. Physical Exam Physical Exam General: Alert, Oriented X3, Cooperative, mild distress HEENT: Atraumatic, EOMI Lungs: Decreased breath sounds bilaterally, bibasilar rales Heart: RRR, no rubs Cardiovascular: S1, S2 Abdomen: Normal bowel sounds, Soft, No tenderness Extremities: UE digit amputations with no dehiscence. RLE BKA. Left toenails poorly cared for, gluteal ulcer Skin: No breakdown, No significant lesion Neuro: Normal speech, Sensation intact Psych/Mental Status: Mental status NL, Mood NL Vitals Vitals Vital Signs Date Time Temp Pulse Resp B/P (MAP) Pulse Ox O2 Delivery O2 Flow Rate FiO2 11/03/20 10:05 25 100 Nasal Cannula 4.0 11/03/20 09:45 76 118/57 (77) Labs Labs Laboratory Tests Test 11/03/20 08:03 11/03/20 08:25 SARS-CoV-2 Antigen (Rapid) Negative (NEGATIVE) White Blood Count 11.6 x10^3/uL (4.0-11.0) Red Blood Count 2.35 x10^6/uL (3.50-5.40) Hemoglobin 7.3 g/dL (12.0-15.5) Hematocrit 22.2 % (36.0-47.0) Mean Corpuscular Volume 94 fL (79-100) Mean Corpuscular Hemoglobin 31 pg (25-35) Mean Corpuscular Hemoglobin Concent 33 g/dL (31-37) Red Cell Distribution Width 17.7 % (11.5-14.5) Platelet Count 348 x10^3/uL (140-400) Neutrophils (%) (Auto) 73 % (31-73) Lymphocytes (%) (Auto) 8 % (24-48) Monocytes (%) (Auto) 9 % (0-9) Eosinophils (%) (Auto) 9 % (0-3) Basophils (%) (Auto) 1 % (0-3) Neutrophils # (Auto) 8.5 x10^3/uL (1.8-7.7) Lymphocytes # (Auto) 0.9 x10^3/uL (1.0-4.8) Monocytes # (Auto) 1.1 x10^3/uL (0.0-1.1) Eosinophils # (Auto) 1.1 x10^3/uL (0.0-0.7) Basophils # (Auto) 0.1 x10^3/uL (0.0-0.2) Segmented Neutrophils % 71 % (35-66) Band Neutrophils % 1 % (0-9) Lymphocytes % 14 % (24-48) Monocytes % 8 % (0-10) Eosinophils % 6 % (0-5) Platelet Estimate Adequate (ADEQUATE) Anisocytosis Slight Erythrocyte Sedimentation Rate > 130 (0-25) Prothrombin Time 16.2 SEC (11.7-14.0) Prothromb Time International Ratio 1.3 (0.8-1.1) Activated Partial Thromboplast Time 39 SEC (24-38) Sodium Level 133 mmol/L (136-145) Potassium Level 5.5 mmol/L (3.5-5.1) Chloride Level 96 mmol/L (98-107) Carbon Dioxide Level 22 mmol/L (21-32) Anion Gap 15 (6-14) Blood Urea Nitrogen 87 mg/dL (7-20) Creatinine 9.0 mg/dL (0.6-1.0) Estimated GFR (Cockcroft-Gault) 6.0 BUN/Creatinine Ratio 10 (6-20) Glucose Level 164 mg/dL (70-99) Lactic Acid Level 0.8 mmol/L (0.4-2.0) Calcium Level 9.2 mg/dL (8.5-10.1) Magnesium Level 2.9 mg/dL (1.8-2.4) Total Bilirubin 0.4 mg/dL (0.2-1.0) Aspartate Amino Transf (AST/SGOT) 31 U/L (15-37) Alanine Aminotransferase (ALT/SGPT) 36 U/L (14-59) Alkaline Phosphatase 155 U/L (46-116) Creatine Kinase 25 U/L (26-192) Creatine Kinase MB (Mass) 1.4 ng/mL (0.0-3.6) Creatine Kinase MB Relative Index % (0-4) Troponin I Quantitative < 0.017 ng/mL (0.000-0.055) C-Reactive Protein, Quantitative 94.7 mg/L (0-3.3) VC-Dif-O-Type Natriuretic Peptide > 97581 pg/mL (0-124) Total Protein 8.0 g/dL (6.4-8.2) Albumin 2.7 g/dL (3.4-5.0) Albumin/Globulin Ratio 0.5 (1.0-1.7) Laboratory Tests Test 11/03/20 08:03 11/03/20 08:25 SARS-CoV-2 Antigen (Rapid) Negative (NEGATIVE) White Blood Count 11.6 x10^3/uL (4.0-11.0) Red Blood Count 2.35 x10^6/uL (3.50-5.40) Hemoglobin 7.3 g/dL (12.0-15.5) Hematocrit 22.2 % (36.0-47.0) Mean Corpuscular Volume 94 fL (79-100) Mean Corpuscular Hemoglobin 31 pg (25-35) Mean Corpuscular Hemoglobin Concent 33 g/dL (31-37) Red Cell Distribution Width 17.7 % (11.5-14.5) Platelet Count 348 x10^3/uL (140-400) Neutrophils (%) (Auto) 73 % (31-73) Lymphocytes (%) (Auto) 8 % (24-48) Monocytes (%) (Auto) 9 % (0-9) Eosinophils (%) (Auto) 9 % (0-3) Basophils (%) (Auto) 1 % (0-3) Neutrophils # (Auto) 8.5 x10^3/uL (1.8-7.7) Lymphocytes # (Auto) 0.9 x10^3/uL (1.0-4.8) Monocytes # (Auto) 1.1 x10^3/uL (0.0-1.1) Eosinophils # (Auto) 1.1 x10^3/uL (0.0-0.7) Basophils # (Auto) 0.1 x10^3/uL (0.0-0.2) Segmented Neutrophils % 71 % (35-66) Band Neutrophils % 1 % (0-9) Lymphocytes % 14 % (24-48) Monocytes % 8 % (0-10) Eosinophils % 6 % (0-5) Platelet Estimate Adequate (ADEQUATE) Anisocytosis Slight Erythrocyte Sedimentation Rate > 130 (0-25) Prothrombin Time 16.2 SEC (11.7-14.0) Prothromb Time International Ratio 1.3 (0.8-1.1) Activated Partial Thromboplast Time 39 SEC (24-38) Sodium Level 133 mmol/L (136-145) Potassium Level 5.5 mmol/L (3.5-5.1) Chloride Level 96 mmol/L (98-107) Carbon Dioxide Level 22 mmol/L (21-32) Anion Gap 15 (6-14) Blood Urea Nitrogen 87 mg/dL (7-20) Creatinine 9.0 mg/dL (0.6-1.0) Estimated GFR (Cockcroft-Gault) 6.0 BUN/Creatinine Ratio 10 (6-20) Glucose Level 164 mg/dL (70-99) Lactic Acid Level 0.8 mmol/L (0.4-2.0) Calcium Level 9.2 mg/dL (8.5-10.1) Magnesium Level 2.9 mg/dL (1.8-2.4) Total Bilirubin 0.4 mg/dL (0.2-1.0) Aspartate Amino Transf (AST/SGOT) 31 U/L (15-37) Alanine Aminotransferase (ALT/SGPT) 36 U/L (14-59) Alkaline Phosphatase 155 U/L (46-116) Creatine Kinase 25 U/L (26-192) Creatine Kinase MB (Mass) 1.4 ng/mL (0.0-3.6) Creatine Kinase MB Relative Index % (0-4) Troponin I Quantitative < 0.017 ng/mL (0.000-0.055) C-Reactive Protein, Quantitative 94.7 mg/L (0-3.3) RT-Uwq-N-Type Natriuretic Peptide > 41107 pg/mL (0-124) Total Protein 8.0 g/dL (6.4-8.2) Albumin 2.7 g/dL (3.4-5.0) Albumin/Globulin Ratio 0.5 (1.0-1.7) Images Images PATIENT: JORGE ESTRADAUNT: [id number] : 1985 LOCATION: ER AGE: 35 SEX: F EXAM STATUS: REG ER ORD. PHYSICIAN: NOEMÍ NGO DO REASON: SOA PROCEDURE: CHEST AP ONLY EXAM: XR CHEST 1V 11/03/2020 6:48 AM CLINICAL INDICATION: Shortness of air COMPARISON: Chest radiograph 10/10/2020 TECHNIQUE: AP upright view of the chest FINDINGS: The cardiac silhouette is enlarged, unchanged. There are increased diffuse airspace opacities bilaterally. Small right pleural effusion. No pneumothorax. There are surgical clips in the left axilla. IMPRESSION: Cardiomegaly, increased bilateral opacities and small right pleural effusion, which can be seen with atypical pneumonia or pulmonary edema. VTE Prophylaxis Ordered VTE Prophylaxis Devices: No VTE Pharmacological Prophylaxi: Yes Assessment/Plan Assessment/Plan Volume overload ESRD on HD Missed hemodialysis Subtherapeutic INR Severe malnutrition Plan: Consultation placed to nephrology I imagine she will resume her regular HD schedule and hopefully will be improved after the fluid is removed. Elevated CRP likely secondary to her underlying vasculitis Resume home medications FEN - Cardiac diet PPX - Warfarin FULL CODE Dispo - inpatient for above Justifications for Admission Other Justification Hyperkalemia, ESRD on HD, HCAP, acute respiratory failure LIZBETH SCOTT MD Nov 03, 2020 11:42
[2020-11-03] MEDS ORDERED: BISACODYL 10 MG SUPP.RECT. PR PRN (11:44)
[2020-11-03] MEDS ORDERED: ONDANSETRON ODT 4 MG TAB.RAPDIS. PO PRN (11:45)
[2020-11-03] MEDS ORDERED: hydrALAZINE 20 MG/ML VIAL. IVP PRN (11:45)
[2020-11-03] MEDS ORDERED: NICOTINE 14MG PATCH. TD PRN (11:45)
[2020-11-03] MEDS ORDERED: ALBUTEROL SULFATE 2.5 MG/3 ML NEBU. NEB PRN (11:45)
[2020-11-03] MEDS: INSULIN LISPRO 300 UNITS/3 ML VIAL. SQ SCH ×2 (12:00→17:00)
--- NOTE | 2020-11-03 12:07 | EKG ---
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
[2020-11-03] MEDS: fentaNYL PF VIAL 100 MCG/2 ML VIAL IVP PRN ×4 (12:44→23:13)
[2020-11-03] MEDS ORDERED: ZOLPIDEM 5 MG TABLET. PO PRN (12:45)
[2020-11-03] MEDS ORDERED: ONDANSETRON PF 4 MG/2 ML VIAL. IVP PRN (12:45)
[2020-11-03] MEDS ORDERED: ACETAMINOPHEN 325 MG TABLET. PO PRN (12:45)
[2020-11-03] MEDS ORDERED: CALCIUM CARBONATE 500 MG TAB.CHEW PO PRN (12:45)
[2020-11-03] MEDS ORDERED: MAGNESIUM HYDROXIDE 2,400 MG/30 ML ORAL.SUSP. PO PRN (12:45)
[2020-11-03] MEDS ORDERED: MAG HYDROX/ALUMINUM HYD/SIMETH 30 ML ORAL.SUSP PO PRN (12:45)
[2020-11-03] MEDS: HYDROmorphone 2 MG TABLET PO PRN ×2 (13:09→19:52)
[2020-11-03] MEDS: SEVELAMER CARBONATE 800 MG TABLET. PO SCH ×2 (14:00→20:32)
[2020-11-03] MEDS: ACETAMINOPHEN 500 MG TABLET PO SCH ×2 (14:00→19:53)
[2020-11-03] MEDS: levETIRAcetam 250 MG TABLET PO SCH ×2 (14:00→19:53)
[2020-11-03] MEDS: FOLIC/VIT B COMP W-C (RENAL) TABLET. PO SCH (14:00)
[2020-11-03] MEDS: ASPIRIN CHEWABLE 81 MG TABLET. PO SCH (14:00)
--- NOTE | 2020-11-03 15:41 | PDOC2 ---
CONSULT Date of Consult Date of Consult DATE: 11/03/20 TIME: 15:35 Reason for Consult Reason for Consult: ESRD Source Source: Chart review History of Present Illness Reason for Visit: Patient is a 35-year-old AA female with frequent hospitalizations, Non compliance with HD, presents to the ED from her nursing facility with complaints of shortness of breath. She normally uses 6 L O2 by nasal cannula, and was saturating in the high 90s on 6 L upon arrival to the ED. patient reportedly missed hemodialysis on Tuesday as she was being seen at . Denies any N/V/D. No CP, No F/C Chest x-ray in the ER - cardiomegaly, increased bilateral opacities, and small right pleural effusion. Past Medical History Cardiovascular: CHF, HTN, Hyperlipidemia Pulmonary: Pulmonary embolus CENTRAL NERVOUS SYSTEM: Periperal neuropathy, Seizure Heme/Onc: Anemia NOS Psych: Anxiety, Depression Rheumatologic: Gout Renal/: Chronic renal failure Endocrine: Diabetes, Hyperparathyroidism Past Surgical History Past Surgical History: Hysterectomy Family History Family History: Diabetes, Hypertension, Kidney Disease Social History <1 pack per day ALCOHOL: none Drugs: Marijuana Lives: with Family Current Problem List Problem List Problems Medical Problems: (1) Pulmonary edema Status: Acute Current Medications Current Medications Current Medications Fentanyl Citrate (Fentanyl 2ml Vial) 75 mcg 1X ONCE IV Last administered on 11/03/20at 09:04; Start 11/03/20 at 07:00; Stop 11/03/20 at 09:03; Status DC Fentanyl Citrate (Fentanyl 2ml Vial) 75 mcg 1X ONCE IM ; Start 11/03/20 at 09:15; Stop 11/03/20 at 09:06; Status DC Fentanyl Citrate (Fentanyl 2ml Vial) 75 mcg 1X ONCE IV Last administered on 11/03/20at 10:05; Start 11/03/20 at 09:45; Stop 11/03/20 at 09:46; Status DC Ondansetron HCl (Zofran) 4 mg PRN Q8HRS PRN IVP NAUSEA/VOMITING; Start 11/03/20 at 09:15; Stop 11/04/20 at 09:14 Fentanyl Citrate (Fentanyl 2ml Vial) 50 mcg PRN Q2HRS PRN IVP PAIN Last administered on 11/03/20at 12:44; Start 11/03/20 at 09:15 Insulin Human Lispro (HumaLOG) 0-5 UNITS TIDWMEALS SQ ; Start 11/03/20 at 12:00 Dextrose (Dextrose 50%-Water Syringe) 12.5 gm PRN Q15MIN PRN IV SEE COMMENTS; Start 11/03/20 at 09:15 Sodium Chloride 1,000 ml @ 1,000 mls/hr Q1H PRN IV hypotension; Start 11/03/20 at 11:15; Stop 11/03/20 at 17:14 Albumin Human 100 ml @ 100 mls/hr 1X PRN PRN IV Hypotension; Start 11/03/20 at 11:15; Stop 11/03/20 at 17:14 Sodium Chloride 1,000 ml @ 400 mls/hr Q2H30M PRN IV PATENCY; Start 11/03/20 at 11:15; Stop 11/03/20 at 23:14 Info (PHARMACY MONITORING -- do not chart) 1 each PRN DAILY PRN MC SEE COMMENTS; Start 11/03/20 at 11:15; Stop 11/03/20 at 11:18; Status DC Info (PHARMACY MONITORING -- do not chart) 1 each PRN DAILY PRN MC SEE COMMENTS; Start 11/03/20 at 11:15 Acetaminophen (Tylenol) 1,000 mg TID PO ; Start 11/03/20 at 14:00 Albuterol Sulfate (Ventolin Neb Soln) 2.5 mg PRN Q4HRS PRN NEB SHORTNESS OF BREATH; Start 11/03/20 at 11:45 Amlodipine Besylate (Norvasc) 10 mg DAILY PO ; Start 11/03/20 at 14:00 Aspirin (Aspirin Chewable) 81 mg DAILY PO ; Start 11/03/20 at 14:00 Bisacodyl (Dulcolax Supp) 10 mg PRN DAILY PRN SC CONSTIPATION; Start 11/03/20 at 11:44 Vitamin B Complex/ Vitamin C (Wendy-Marvin) 1 tab DAILY PO ; Start 11/03/20 at 14:00 Gabapentin (Neurontin) 300 mg DAILY08 PO ; Start 11/04/20 at 08:00 Hydralazine HCl (Apresoline) 75 mg BID PO ; Start 11/03/20 at 14:00 Hydromorphone HCl (Dilaudid) 2 mg PRN TID PRN PO pain Last administered on 11/03/20at 13:09; Start 11/03/20 at 11:45 Levetiracetam (Keppra) 375 mg BID PO ; Start 11/03/20 at 14:00 Lubiprostone (Amitiza) 24 mcg BIDWMEALS PO ; Start 11/03/20 at 17:00 Nicotine (Nicoderm Cq 14mg) 1 patch PRN DAILY PRN TD SMOKING CESSATION; Start 11/03/20 at 11:45 Ondansetron HCl (Zofran Odt) 4 mg PRN Q6HRS PRN PO NAUSEA/VOMITING; Start 11/03/20 at 11:45 Sevelamer Carbonate (Renvela) 800 mg TID PO ; Start 11/03/20 at 14:00 Vitamin A/Vitamin D (Vitamin A & D Ointment) 1 day BID TP ; Start 11/03/20 at 21:00 Warfarin Sodium (Coumadin) 4 mg DAILY16 PO ; Start 11/03/20 at 16:00 Carvedilol (Coreg) 25 mg BIDWMEALS PO ; Start 11/03/20 at 17:00 Warfarin Sodium (Coumadin Per Pharmacy) 1 each PRN DAILY PRN MC SEE COMMENTS; Start 11/03/20 at 11:45 Hydralazine HCl (Apresoline Inj) 10 mg PRN Q4HRS PRN IVP HYPERTENSION; Start 11/03/20 at 11:45 Ondansetron HCl (Zofran) 4 mg PRN Q6HRS PRN IVP NAUSEA/VOMITING; Start 11/03/20 at 12:45 Al Hydroxide/Mg Hydroxide (Mylanta Plus Xs) 30 ml PRN Q3HRS PRN PO HEARTBURN / GAS; Start 11/03/20 at 12:45 Calcium Carbonate/ Glycine (Tums) 500 mg PRN Q3HRS PRN PO UPSET STOMACH; Start 11/03/20 at 12:45 Zolpidem Tartrate (Ambien) 5 mg PRN QHS PRN PO INSOMNIA, MAY REPEAT IN 1HR; Start 11/03/20 at 12:45 Acetaminophen (Tylenol) 650 mg PRN Q6HRS PRN PO Headaches, Temp > 101.5F; Start 11/03/20 at 12:45 Magnesium Hydroxide (Milk Of Magnesia) 2,400 mg PRN Q12HR PRN PO CONSTIPATION; Start 11/03/20 at 12:45 Active Scripts Active Dilaudid (Hydromorphone Hcl) 2 Mg Tablet 1 Tab PO PRN TID PRN MDD 3 Tablet(s) 5 Days Gabapentin 300 Mg Capsule 300 Mg PO DAILY08 30 Days Ondansetron Odt (Ondansetron) 4 Mg Tab.rapdis 4 Mg PO PRN Q6HRS PRN 14 Days Bisacodyl 10 Mg Supp.rect 10 Mg SC PRN DAILY PRN 14 Days Keppra (Levetiracetam) 250 Mg Tablet 375 Mg PO BID 30 Days Hydralazine Hcl 50 Mg Tablet 75 Mg PO BID 30 Days Proair Hfa (Albuterol Sulfate) 8.5 Gm Hfa.aer.ad 2.5 Mg NEB PRN Q4HRS PRN 14 Days Amitiza (Lubiprostone) 24 Mcg Capsule 24 Mcg PO BIDWMEALS 30 Days [Diclofenac Sodium] 100 GM Gel..gram. 1 Day TP BID 30 Days Reported Novolog (Insulin Aspart) 100 Unit/1 Ml Vial 0-12 Unit SQ TIDAC NICODERM CQ 14mg (Nicotine) 1 Each Patch.td24 1 Patch TP DAILY Acetaminophen 500 Mg Tablet 1,000 Mg PO TID A and D Ointment (Vits A and D/White Pet/Lanolin) 42.5 Gm Oint...g. 42.5 Gm TP BID Renvela (Sevelamer Carbonate) 800 Mg Tablet 1 Tab PO TID 30 Days Wendy-Marvin Tablet (Folic Acid/Vitamin B Comp W-C) 0.8 Mg Tablet 1 Tab PO DAILY 30 Days Protonix (Pantoprazole Sodium) 20 Mg Tablet.dr 2 Tab PO DAILY Carvedilol 25 Mg Tablet 25 Mg PO BIDWMEALS Aspirin 81 Mg Tab.chew 1 Tab PO DAILY Amlodipine Besylate 10 Mg Tablet 10 Mg PO DAILY Allergies Allergies: Coded Allergies: No Known Drug Allergies (Unverified , 12/05/17) ROS Review of System As per HPI, rest of the ROS is negative Physical Exam Physical Exam GENERAL:NAD HEENT: OM moist on o2 by nc 5-6 lts Chronic NECK: Supple. LUNGS: diminished breath sounds, non labored CARDIOVASCULAR: S1S2 ABDOMEN: Soft, nontender. EXTREMITIES s/p BKA Rt LE ; UE digit amputations NEURO grossly normal Vital Signs Vital Signs Date Time Temp Pulse Resp B/P (MAP) Pulse Ox O2 Delivery O2 Flow Rate FiO2 11/03/20 13:09 24 100 Nasal Cannula 4.0 11/03/20 12:48 75 101/79 (86) Assessment & Plan ESRD: on HD MWF; Missed dialysis treatments (chronic Non compliance ), missed dialysis this tuesday/ appt at Dialysis today , discussed treatment plan with Sheron Shortness of breath - missed dialysis on tuesday , Cxr Cardiomegaly, increased bilateral opacities and small right pleural effusion, which can be seen with atypical pneumonia or pulmonary edema. Hyperkalemia - mild, Dialysis today Acute anemia- SHANAE as indicated, PRBC for Hgb , 7 History of Acute respiratory failure with hypoxia- requiring intubation Diastolic CHF Severe PAD with gangrenous eschar on the right foot with ischemic rest pain. 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 Status post finger amputations bilaterally. History of COVID infection on 09/24/2019 and October 09 2019, chronic back pain - with radiculopathy H/o Seizures - on [facility] Hypertension cont meds Labs Labs Laboratory Tests Test 11/03/20 08:03 11/03/20 08:25 SARS-CoV-2 RNA (RUBA) Negative (Negative) SARS-CoV-2 Antigen (Rapid) Negative (NEGATIVE) White Blood Count 11.6 x10^3/uL (4.0-11.0) Red Blood Count 2.35 x10^6/uL (3.50-5.40) Hemoglobin 7.3 g/dL (12.0-15.5) Hematocrit 22.2 % (36.0-47.0) Mean Corpuscular Volume 94 fL (79-100) Mean Corpuscular Hemoglobin 31 pg (25-35) Mean Corpuscular Hemoglobin Concent 33 g/dL (31-37) Red Cell Distribution Width 17.7 % (11.5-14.5) Platelet Count 348 x10^3/uL (140-400) Neutrophils (%) (Auto) 73 % (31-73) Lymphocytes (%) (Auto) 8 % (24-48) Monocytes (%) (Auto) 9 % (0-9) Eosinophils (%) (Auto) 9 % (0-3) Basophils (%) (Auto) 1 % (0-3) Neutrophils # (Auto) 8.5 x10^3/uL (1.8-7.7) Lymphocytes # (Auto) 0.9 x10^3/uL (1.0-4.8) Monocytes # (Auto) 1.1 x10^3/uL (0.0-1.1) Eosinophils # (Auto) 1.1 x10^3/uL (0.0-0.7) Basophils # (Auto) 0.1 x10^3/uL (0.0-0.2) Segmented Neutrophils % 71 % (35-66) Band Neutrophils % 1 % (0-9) Lymphocytes % 14 % (24-48) Monocytes % 8 % (0-10) Eosinophils % 6 % (0-5) Platelet Estimate Adequate (ADEQUATE) Anisocytosis Slight Erythrocyte Sedimentation Rate > 130 (0-25) Prothrombin Time 16.2 SEC (11.7-14.0) Prothromb Time International Ratio 1.3 (0.8-1.1) Activated Partial Thromboplast Time 39 SEC (24-38) Sodium Level 133 mmol/L (136-145) Potassium Level 5.5 mmol/L (3.5-5.1) Chloride Level 96 mmol/L (98-107) Carbon Dioxide Level 22 mmol/L (21-32) Anion Gap 15 (6-14) Blood Urea Nitrogen 87 mg/dL (7-20) Creatinine 9.0 mg/dL (0.6-1.0) Estimated GFR (Cockcroft-Gault) 6.0 BUN/Creatinine Ratio 10 (6-20) Glucose Level 164 mg/dL (70-99) Lactic Acid Level 0.8 mmol/L (0.4-2.0) Calcium Level 9.2 mg/dL (8.5-10.1) Magnesium Level 2.9 mg/dL (1.8-2.4) Total Bilirubin 0.4 mg/dL (0.2-1.0) Aspartate Amino Transf (AST/SGOT) 31 U/L (15-37) Alanine Aminotransferase (ALT/SGPT) 36 U/L (14-59) Alkaline Phosphatase 155 U/L (46-116) Creatine Kinase 25 U/L (26-192) Creatine Kinase MB (Mass) 1.4 ng/mL (0.0-3.6) Creatine Kinase MB Relative Index % (0-4) Troponin I Quantitative < 0.017 ng/mL (0.000-0.055) C-Reactive Protein, Quantitative 94.7 mg/L (0-3.3) [id number]-Type Natriuretic Peptide > 22373 pg/mL (0-124) Total Protein 8.0 g/dL (6.4-8.2) Albumin 2.7 g/dL (3.4-5.0) Albumin/Globulin Ratio 0.5 (1.0-1.7) Laboratory Tests Test 11/03/20 08:03 11/03/20 08:25 SARS-CoV-2 RNA (RUBA) Negative (Negative) SARS-CoV-2 Antigen (Rapid) Negative (NEGATIVE) White Blood Count 11.6 x10^3/uL (4.0-11.0) Red Blood Count 2.35 x10^6/uL (3.50-5.40) Hemoglobin 7.3 g/dL (12.0-15.5) Hematocrit 22.2 % (36.0-47.0) Mean Corpuscular Volume 94 fL (79-100) Mean Corpuscular Hemoglobin 31 pg (25-35) Mean Corpuscular Hemoglobin Concent 33 g/dL (31-37) Red Cell Distribution Width 17.7 % (11.5-14.5) Platelet Count 348 x10^3/uL (140-400) Neutrophils (%) (Auto) 73 % (31-73) Lymphocytes (%) (Auto) 8 % (24-48) Monocytes (%) (Auto) 9 % (0-9) Eosinophils (%) (Auto) 9 % (0-3) Basophils (%) (Auto) 1 % (0-3) Neutrophils # (Auto) 8.5 x10^3/uL (1.8-7.7) Lymphocytes # (Auto) 0.9 x10^3/uL (1.0-4.8) Monocytes # (Auto) 1.1 x10^3/uL (0.0-1.1) Eosinophils # (Auto) 1.1 x10^3/uL (0.0-0.7) Basophils # (Auto) 0.1 x10^3/uL (0.0-0.2) Segmented Neutrophils % 71 % (35-66) Band Neutrophils % 1 % (0-9) Lymphocytes % 14 % (24-48) Monocytes % 8 % (0-10) Eosinophils % 6 % (0-5) Platelet Estimate Adequate (ADEQUATE) Anisocytosis Slight Erythrocyte Sedimentation Rate > 130 (0-25) Prothrombin Time 16.2 SEC (11.7-14.0) Prothromb Time International Ratio 1.3 (0.8-1.1) Activated Partial Thromboplast Time 39 SEC (24-38) Sodium Level 133 mmol/L (136-145) Potassium Level 5.5 mmol/L (3.5-5.1) Chloride Level 96 mmol/L (98-107) Carbon Dioxide Level 22 mmol/L (21-32) Anion Gap 15 (6-14) Blood Urea Nitrogen 87 mg/dL (7-20) Creatinine 9.0 mg/dL (0.6-1.0) Estimated GFR (Cockcroft-Gault) 6.0 BUN/Creatinine Ratio 10 (6-20) Glucose Level 164 mg/dL (70-99) Lactic Acid Level 0.8 mmol/L (0.4-2.0) Calcium Level 9.2 mg/dL (8.5-10.1) Magnesium Level 2.9 mg/dL (1.8-2.4) Total Bilirubin 0.4 mg/dL (0.2-1.0) Aspartate Amino Transf (AST/SGOT) 31 U/L (15-37) Alanine Aminotransferase (ALT/SGPT) 36 U/L (14-59) Alkaline Phosphatase 155 U/L (46-116) Creatine Kinase 25 U/L (26-192) Creatine Kinase MB (Mass) 1.4 ng/mL (0.0-3.6) Creatine Kinase MB Relative Index % (0-4) Troponin I Quantitative < 0.017 ng/mL (0.000-0.055) C-Reactive Protein, Quantitative 94.7 mg/L (0-3.3) AQ-Flz-X-Type Natriuretic Peptide > 28074 pg/mL (0-124) Total Protein 8.0 g/dL (6.4-8.2) Albumin 2.7 g/dL (3.4-5.0) Albumin/Globulin Ratio 0.5 (1.0-1.7) Review All relevant outside records, renal labs, imaging studies, telemetry/EKG's were reviewed. Images Images Cxr Cardiomegaly, increased bilateral opacities and small right pleural effusion, which can be seen with atypical pneumonia or pulmonary edema. KADY STEARNS MD Nov 03, 2020 15:41
[2020-11-03] MEDS ORDERED: WARFARIN 4 MG TABLET. PO SCH (16:00)
[2020-11-03] MEDS: CARVEDILOL 12.5 MG TABLET. PO SCH (17:00)
[2020-11-03] MEDS: LUBIPROSTONE 24 MCG CAPSULE PO SCH (17:00)
[2020-11-03 19:00] VITALS: BP 149/53
--- NOTE | 2020-11-03 19:00 | NUR ---
The patient, JORGE ESTRADA, 35 y/o, F admitted by LIZBETH SCOTT MD, was given written information regarding hospital policies, unit procedures and contact persons. Valuables were checked and left with her.
[2020-11-03] MEDS: ONDANSETRON PF 4 MG/2 ML VIAL. IVP PRN (19:54)
[2020-11-03] MEDS: VITS A & D/LANOLIN TOPICAL OINTMENT 42GM TUBE. TP SCH (20:33)
[2020-11-03 23:00] VITALS: BP 151/70
[2020-11-04] MEDS: fentaNYL PF VIAL 100 MCG/2 ML VIAL IVP PRN ×5 (02:45→15:35)
[2020-11-04 03:00] VITALS: BP 128/62
[2020-11-04] MEDS: ONDANSETRON PF 4 MG/2 ML VIAL. IVP PRN (06:27)
[2020-11-04 07:00] VITALS: BP 154/73
[2020-11-04] MEDS ORDERED: GABAPENTIN 300 MG CAPSULE. PO SCH (08:00)
[2020-11-04] MEDS: INSULIN LISPRO 300 UNITS/3 ML VIAL. SQ SCH ×2 (08:00→12:00)
[2020-11-04] MEDS: LUBIPROSTONE 24 MCG CAPSULE PO SCH (08:00)
--- NOTE | 2020-11-04 08:54 | PDOC ---
PROGRESS NOTES Date of Service: DATE: 11/04/20 TIME: 08:51 Chief Complaint Chief Complaint FINDINGS: The cardiac silhouette is enlarged, unchanged. There are increased diffuse airspace opacities bilaterally. Small right pleural effusion. No pneumothorax. There are surgical clips in the left axilla. IMPRESSION: Cardiomegaly, increased bilateral opacities and small right pleural effusion, which can be seen with atypical pneumonia or pulmonary edema. VTE Prophylaxis Ordered VTE Prophylaxis Devices: No VTE Pharmacological Prophylaxi: Yes Assessment/Plan Assessment/Plan Volume overload ESRD on HD Missed hemodialysis Subtherapeutic INR Severe malnutrition Plan: Consult nephrology resume her regular HD schedule and hopefully will be improved after the fluid is removed. Elevated CRP likely secondary to her underlying vasculitis Resume home medications FEN - Cardiac diet PPX - Warfarin FULL CODE Dispo - inpatient for above 8-31Severe PAD with gangrenous eschar on the right foot with ischemic rest pain. 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 Her shelter facility. Normally wears 6 L O2 by nasal cannula, and was saturating in the high 90s on 6 L upon arrival to the ED. patient reportedly mi ssed hemodialysis on Tuesday as she was being seen at . Labs on admission showed WBC 11.6, hemoglobin 7.3, hematocrit 22.2 sodium 132, potassium 5.5, BUN 87, creatinine 9.0, CBG 164, BNP >35,000, albumin 2.7, CRP 94.7. Chest x-ray showed cardiomegaly, increased bilateral opacities, and small right pleural effusion. Will admit patient for further medical management. Past Medical History Cardiovascular: CHF, HTN, Hyperlipidemia Pulmonary: Pulmonary embolus CENTRAL NERVOUS SYSTEM: Periperal neuropathy, Seizure Heme/Onc: Anemia NOS Psych: Anxiety, Depression Rheumatologic: Gout Renal/: Chronic renal failure Endocrine: Diabetes, Hyperparathyroidism Past Surgical History Past Surgical History: Hysterectomy Family History Family History: Diabetes, Hypertension, Kidney Disease Social History Smoke: <1 pack per day ALCOHOL: none Drugs: Marijuana Current Problem List Problem List Problems Medical Problems: (1) Pulmonary edema Status: Acute Current Medications Current Medications Current Medications Fentanyl Citrate (Fentanyl 2ml Vial) 75 mcg 1X ONCE IV Last administered on 11/03/20at 09:04; Start 11/03/20 at 07:00; Stop 11/03/20 at 09:03; Status DC Fentanyl Citrate (Fentanyl 2ml Vial) 75 mcg 1X ONCE IM ; Start 11/03/20 at 09:15; Stop 11/03/20 at 09:06; Status DC Fentanyl Citrate (Fentanyl 2ml Vial) 75 mcg 1X ONCE IV Last administered on 11/03/20at 10:05; Start 11/03/20 at 09:45; Stop 11/03/20 at 09:46; Status DC Ondansetron HCl (Zofran) 4 mg PRN Q8HRS PRN IVP NAUSEA/VOMITING; Start 11/03/20 at 09:15; Stop 11/04/20 at 09:14 Fentanyl Citrate (Fentanyl 2ml Vial) 50 mcg PRN Q2HRS PRN IVP PAIN; Start 11/03/20 at 09:15 Insulin Human Lispro (HumaLOG) 0-5 UNITS TIDWMEALS SQ ; Start 11/03/20 at 12:00 Dextrose (Dextrose 50%-Water Syringe) 12.5 gm PRN Q15MIN PRN IV SEE COMMENTS; Start 11/03/20 at 09:15 Sodium Chloride 1,000 ml @ 1,000 mls/hr Q1H PRN IV hypotension; Start 11/03/20 at 11:15; Stop 11/03/20 at 17:14 Albumin Human 100 ml @ 100 mls/hr 1X PRN PRN IV Hypotension; Start 11/03/20 at 11:15; Stop 11/03/20 at 17:14 Sodium Chloride 1,000 ml @ 400 mls/hr Q2H30M PRN IV PATENCY; Start 11/03/20 at 11:15; Stop 11/03/20 at 23:14 Info (PHARMACY MONITORING -- do not chart) 1 each PRN DAILY PRN MC SEE COMMENTS; Start 11/03/20 at 11:15; Stop 11/03/20 at 11:18; Status DC Info (PHARMACY MONITORING -- do not chart) 1 each PRN DAILY PRN MC SEE COMMENTS; Start 11/03/20 at 11:15 Active Scripts Active Dilaudid (Hydromorphone Hcl) 2 Mg Tablet 1 Tab PO PRN TID PRN MDD 3 Tablet(s) 5 Days Gabapentin 300 Mg Capsule 300 Mg PO DAILY08 30 Days Ondansetron Odt (Ondansetron) 4 Mg Tab.rapdis 4 Mg PO PRN Q6HRS PRN 14 Days Bisacodyl 10 Mg Supp.rect 10 Mg SD PRN DAILY PRN 14 Days Keppra (Levetiracetam) 250 Mg Tablet 375 Mg PO BID 30 Days Hydralazine Hcl 50 Mg Tablet 75 Mg PO BID 30 Days Proair Hfa (Albuterol Sulfate) 8.5 Gm Hfa.aer.ad 2.5 Mg NEB PRN Q4HRS PRN 14 Days Amitiza (Lubiprostone) 24 Mcg Capsule 24 Mcg PO BIDWMEALS 30 Days [Diclofenac Sodium] 100 GM Gel..gram. 1 Day TP BID 30 Days Reported Warfarin Sodium 4 Mg Tablet 4 Mg PO DAILY Novolog (Insulin Aspart) 100 Unit/1 Ml Vial 0-12 Unit SQ TIDAC NICODERM CQ 14mg (Nicotine) 1 Each Patch.td24 1 Patch TP DAILY Acetaminophen 500 Mg Tablet 1,000 Mg PO TID A and D Ointment (Vits A and D/White Pet/Lanolin) 42.5 Gm Oint...g. 42.5 Gm TP BID Renvela (Sevelamer Carbonate) 800 Mg Tablet 1 Tab PO TID 30 Days Wendy-Marvin Tablet (Folic Acid/Vitamin B Comp W-C) 0.8 Mg Tablet 1 Tab PO DAILY 30 Days Protonix (Pantoprazole Sodium) 20 Mg Tablet.dr 2 Tab PO DAILY Carvedilol 25 Mg Tablet 25 Mg PO BIDWMEALS Aspirin 81 Mg Tab.chew 1 Tab PO DAILY Amlodipine Besylate 10 Mg Tablet 10 Mg PO DAILY Allergies Allergies: Coded Allergies: No Known Drug Allergies (Unverified , 12/05/17) ROS Review of System GENERAL: No history of weight change, weakness or fevers. SKIN: No bruising, hair changes or rashes. EYES: No blurred, double or loss of vision. NOSE AND THROAT: No history of nosebleeds, hoarseness or sore throat. HEART: Denies chest pain, denies palpitations. LUNGS: Shortness of breath. Denies hemoptysis, wheezing or shortness of breath. GASTROINTESTINAL: Denies nausea, vomiting, abdominal pain. GENITOURINARY: Denies dysuria, frequency, urgency, hematuria. NEUROLOGIC: Denies history of numbness, tingling, tremor or weakness. PSYCHIATRIC: Denies anxiety, denies depression. ENDOCRINE: No history of heat or cold intolerance, polyuria or polydipsia. EXTREMITIES: Denies muscle weakness, joint pain, pain on walking or stiffness. Vitals Vitals Vital Signs Date Time Temp Pulse Resp B/P (MAP) Pulse Ox O2 Delivery O2 Flow Rate FiO2 11/04/20 07:00 98.2 74 18 154/73 (100) 98 Nasal Cannula 2.0 98.2 Physical Exam General: Alert, Oriented X3, Cooperative, No acute distress Heart: Regular rate Lungs: Clear Abdomen: Normal bowel sounds, Soft Extremities: No cyanosis Labs LABS Laboratory Tests Test 11/03/20 19:52 11/04/20 07:27 Glucose (Fingerstick) 111 mg/dL (70-99) 119 mg/dL (70-99) Assessment and Plan Assessmemt and Plan Problems Medical Problems: (1) Decubitus ulcer of back Status: Acute (2) Pulmonary edema Status: Acute Comment Review of Relevant I have reviewed the following items jamie (where applicable) has been applied. Labs Laboratory Tests Test 11/03/20 08:03 11/03/20 08:25 11/03/20 19:52 11/04/20 07:27 SARS-CoV-2 RNA (RUBA) Negative (Negative) SARS-CoV-2 Antigen (Rapid) Negative (NEGATIVE) White Blood Count 11.6 x10^3/uL (4.0-11.0) Red Blood Count 2.35 x10^6/uL (3.50-5.40) Hemoglobin 7.3 g/dL (12.0-15.5) Hematocrit 22.2 % (36.0-47.0) Mean Corpuscular Volume 94 fL (79-100) Mean Corpuscular Hemoglobin 31 pg (25-35) Mean Corpuscular Hemoglobin Concent 33 g/dL (31-37) Red Cell Distribution Width 17.7 % (11.5-14.5) Platelet Count 348 x10^3/uL (140-400) Neutrophils (%) (Auto) 73 % (31-73) Lymphocytes (%) (Auto) 8 % (24-48) Monocytes (%) (Auto) 9 % (0-9) Eosinophils (%) (Auto) 9 % (0-3) Basophils (%) (Auto) 1 % (0-3) Neutrophils # (Auto) 8.5 x10^3/uL (1.8-7.7) Lymphocytes # (Auto) 0.9 x10^3/uL (1.0-4.8) Monocytes # (Auto) 1.1 x10^3/uL (0.0-1.1) Eosinophils # (Auto) 1.1 x10^3/uL (0.0-0.7) Basophils # (Auto) 0.1 x10^3/uL (0.0-0.2) Segmented Neutrophils % 71 % (35-66) Band Neutrophils % 1 % (0-9) Lymphocytes % 14 % (24-48) Monocytes % 8 % (0-10) Eosinophils % 6 % (0-5) Platelet Estimate Adequate (ADEQUATE) Anisocytosis Slight Erythrocyte Sedimentation Rate > 130 (0-25) Prothrombin Time 16.2 SEC (11.7-14.0) Prothromb Time International Ratio 1.3 (0.8-1.1) Activated Partial Thromboplast Time 39 SEC (24-38) Sodium Level 133 mmol/L (136-145) Potassium Level 5.5 mmol/L (3.5-5.1) Chloride Level 96 mmol/L (98-107) Carbon Dioxide Level 22 mmol/L (21-32) Anion Gap 15 (6-14) Blood Urea Nitrogen 87 mg/dL (7-20) Creatinine 9.0 mg/dL (0.6-1.0) Estimated GFR (Cockcroft-Gault) 6.0 BUN/Creatinine Ratio 10 (6-20) Glucose Level 164 mg/dL (70-99) Lactic Acid Level 0.8 mmol/L (0.4-2.0) Calcium Level 9.2 mg/dL (8.5-10.1) Magnesium Level 2.9 mg/dL (1.8-2.4) Total Bilirubin 0.4 mg/dL (0.2-1.0) Aspartate Amino Transf (AST/SGOT) 31 U/L (15-37) Alanine Aminotransferase (ALT/SGPT) 36 U/L (14-59) Alkaline Phosphatase 155 U/L (46-116) Creatine Kinase 25 U/L (26-192) Creatine Kinase MB (Mass) 1.4 ng/mL (0.0-3.6) Creatine Kinase MB Relative Index % (0-4) Troponin I Quantitative < 0.017 ng/mL (0.000-0.055) C-Reactive Protein, Quantitative 94.7 mg/L (0-3.3) JP-Yne-H-Type Natriuretic Peptide > 49801 pg/mL (0-124) Total Protein 8.0 g/dL (6.4-8.2) Albumin 2.7 g/dL (3.4-5.0) Albumin/Globulin Ratio 0.5 (1.0-1.7) Glucose (Fingerstick) 111 mg/dL (70-99) 119 mg/dL (70-99) Laboratory Tests Test 11/03/20 19:52 11/04/20 07:27 Glucose (Fingerstick) 111 mg/dL (70-99) 119 mg/dL (70-99) Medications Current Medications Fentanyl Citrate (Fentanyl 2ml Vial) 75 mcg 1X ONCE IV Last administered on 11/03/20at 09:04; Start 11/03/20 at 07:00; Stop 11/03/20 at 09:03; Status DC Fentanyl Citrate (Fentanyl 2ml Vial) 75 mcg 1X ONCE IM ; Start 11/03/20 at 09:15; Stop 11/03/20 at 09:06; Status DC Fentanyl Citrate (Fentanyl 2ml Vial) 75 mcg 1X ONCE IV Last administered on 11/03/20at 10:05; Start 11/03/20 at 09:45; Stop 11/03/20 at 09:46; Status DC Ondansetron HCl (Zofran) 4 mg PRN Q8HRS PRN IVP NAUSEA/VOMITING Last administered on 11/04/20at 06:27; Start 11/03/20 at 09:15; Stop 11/04/20 at 09:14 Fentanyl Citrate (Fentanyl 2ml Vial) 50 mcg PRN Q2HRS PRN IVP PAIN Last administered on 11/04/20at 06:23; Start 11/03/20 at 09:15 Insulin Human Lispro (HumaLOG) 0-5 UNITS TIDWMEALS SQ ; Start 11/03/20 at 12:00 Dextrose (Dextrose 50%-Water Syringe) 12.5 gm PRN Q15MIN PRN IV SEE COMMENTS; Start 11/03/20 at 09:15 Sodium Chloride 1,000 ml @ 1,000 mls/hr Q1H PRN IV hypotension; Start 11/03/20 at 11:15; Stop 11/03/20 at 17:14; Status DC Albumin Human 100 ml @ 100 mls/hr 1X PRN PRN IV Hypotension Last administered on 11/03/20at 16:00; Start 11/03/20 at 11:15; Stop 11/03/20 at 17:14; Status DC Sodium Chloride 1,000 ml @ 400 mls/hr Q2H30M PRN IV PATENCY; Start 11/03/20 at 11:15; Stop 11/03/20 at 23:14; Status DC Info (PHARMACY MONITORING -- do not chart) 1 each PRN DAILY PRN MC SEE COMMENTS; Start 11/03/20 at 11:15; Stop 11/03/20 at 11:18; Status DC Info (PHARMACY MONITORING -- do not chart) 1 each PRN DAILY PRN MC SEE COMMENTS; Start 11/03/20 at 11:15 Acetaminophen (Tylenol) 1,000 mg TID PO Last administered on 11/03/20at 19:53; Start 11/03/20 at 14:00 Albuterol Sulfate (Ventolin Neb Soln) 2.5 mg PRN Q4HRS PRN NEB SHORTNESS OF BREATH; Start 11/03/20 at 11:45 Amlodipine Besylate (Norvasc) 10 mg DAILY PO ; Start 11/03/20 at 14:00 Aspirin (Aspirin Chewable) 81 mg DAILY PO ; Start 11/03/20 at 14:00 Bisacodyl (Dulcolax Supp) 10 mg PRN DAILY PRN SD CONSTIPATION; Start 11/03/20 at 11:44 Vitamin B Complex/ Vitamin C (Wendy-Marvin) 1 tab DAILY PO ; Start 11/03/20 at 14:00 Gabapentin (Neurontin) 300 mg DAILY08 PO ; Start 11/04/20 at 08:00 Hydralazine HCl (Apresoline) 75 mg BID PO Last administered on 11/03/20at 19:54; Start 11/03/20 at 14:00 Hydromorphone HCl (Dilaudid) 2 mg PRN TID PRN PO pain Last administered on 11/03/20at 19:52; Start 11/03/20 at 11:45 Levetiracetam (Keppra) 375 mg BID PO Last administered on 11/03/20at 19:53; Start 11/03/20 at 14:00 Lubiprostone (Amitiza) 24 mcg BIDWMEALS PO ; Start 11/03/20 at 17:00 Nicotine (Nicoderm Cq 14mg) 1 patch PRN DAILY PRN TD SMOKING CESSATION; Start 11/03/20 at 11:45 Ondansetron HCl (Zofran Odt) 4 mg PRN Q6HRS PRN PO NAUSEA/VOMITING; Start 11/03/20 at 11:45 Sevelamer Carbonate (Renvela) 800 mg TID PO Last administered on 11/03/20at 20:32; Start 11/03/20 at 14:00 Vitamin A/Vitamin D (Vitamin A & D Ointment) 1 day BID TP ; Start 11/03/20 at 21:00 Warfarin Sodium (Coumadin) 4 mg DAILY16 PO ; Start 11/03/20 at 16:00 Carvedilol (Coreg) 25 mg BIDWMEALS PO ; Start 11/03/20 at 17:00 Warfarin Sodium (Coumadin Per Pharmacy) 1 each PRN DAILY PRN MC SEE COMMENTS; Start 11/03/20 at 11:45 Hydralazine HCl (Apresoline Inj) 10 mg PRN Q4HRS PRN IVP HYPERTENSION; Start 11/03/20 at 11:45 Ondansetron HCl (Zofran) 4 mg PRN Q6HRS PRN IVP NAUSEA/VOMITING; Start 11/03/20 at 12:45 Al Hydroxide/Mg Hydroxide (Mylanta Plus Xs) 30 ml PRN Q3HRS PRN PO HEARTBURN / GAS; Start 11/03/20 at 12:45 Calcium Carbonate/ Glycine (Tums) 500 mg PRN Q3HRS PRN PO UPSET STOMACH; Start 11/03/20 at 12:45 Zolpidem Tartrate (Ambien) 5 mg PRN QHS PRN PO INSOMNIA, MAY REPEAT IN 1HR Last administered on 11/03/20at 23:13; Start 11/03/20 at 12:45 Acetaminophen (Tylenol) 650 mg PRN Q6HRS PRN PO Headaches, Temp > 101.5F; Start 11/03/20 at 12:45 Magnesium Hydroxide (Milk Of Magnesia) 2,400 mg PRN Q12HR PRN PO CONSTIPATION; Start 11/03/20 at 12:45 Active Scripts Active Dilaudid (Hydromorphone Hcl) 2 Mg Tablet 1 Tab PO PRN TID PRN MDD 3 Tablet(s) 5 Days Gabapentin 300 Mg Capsule 300 Mg PO DAILY08 30 Days Ondansetron Odt (Ondansetron) 4 Mg Tab.rapdis 4 Mg PO PRN Q6HRS PRN 14 Days Bisacodyl 10 Mg Supp.rect 10 Mg SD PRN DAILY PRN 14 Days Keppra (Levetiracetam) 250 Mg Tablet 375 Mg PO BID 30 Days Hydralazine Hcl 50 Mg Tablet 75 Mg PO BID 30 Days Proair Hfa (Albuterol Sulfate) 8.5 Gm Hfa.aer.ad 2.5 Mg NEB PRN Q4HRS PRN 14 Days Amitiza (Lubiprostone) 24 Mcg Capsule 24 Mcg PO BIDWMEALS 30 Days [Diclofenac Sodium] 100 GM Gel..gram. 1 Day TP BID 30 Days Reported Novolog (Insulin Aspart) 100 Unit/1 Ml Vial 0-12 Unit SQ TIDAC NICODERM CQ 14mg (Nicotine) 1 Each Patch.td24 1 Patch TP DAILY Acetaminophen 500 Mg Tablet 1,000 Mg PO TID A and D Ointment (Vits A and D/White Pet/Lanolin) 42.5 Gm Oint...g. 42.5 Gm TP BID Renvela (Sevelamer Carbonate) 800 Mg Tablet 1 Tab PO TID 30 Days Wendy-Marvin Tablet (Folic Acid/Vitamin B Comp W-C) 0.8 Mg Tablet 1 Tab PO DAILY 30 Days Protonix (Pantoprazole Sodium) 20 Mg Tablet.dr 2 Tab PO DAILY Carvedilol 25 Mg Tablet 25 Mg PO BIDWMEALS Aspirin 81 Mg Tab.chew 1 Tab PO DAILY Amlodipine Besylate 10 Mg Tablet 10 Mg PO DAILY Vitals/I & O Vital Sign - Last 24 Hours 11/03/20 11/03/20 11/03/20 11/03/20 09:04 09:15 09:45 10:05 Pulse 90 76 Resp 25 B/P (MAP) 121/56 (77) 118/57 (77) Pulse Ox 100 98 100 100 O2 Delivery Nasal Cannula Nasal Cannula Nasal Cannula Nasal Cannula O2 Flow Rate 4.0 4.0 4.0 4.0 11/03/20 11/03/20 11/03/20 11/03/20 10:15 10:45 11:15 11:45 Pulse 73 72 79 75 Resp 26 B/P (MAP) 110/60 (77) 102/54 (70) 106/52 (70) 103/63 (76) Pulse Ox 100 100 100 100 O2 Delivery Nasal Cannula Nasal Cannula Nasal Cannula Nasal Cannula O2 Flow Rate 4.0 4.0 4.0 4.0 11/03/20 11/03/20 11/03/20 11/03/20 12:15 12:44 12:48 13:09 Pulse 76 75 Resp 24 B/P (MAP) 111/52 (71) 101/79 (86) Pulse Ox 100 99 100 100 O2 Delivery Nasal Cannula Nasal Cannula Nasal Cannula Nasal Cannula O2 Flow Rate 4.0 4.0 4.0 4.0 11/03/20 11/03/20 11/03/20 11/03/20 13:30 14:00 14:30 15:53 Pulse 76 72 71 Resp 20 22 20 B/P (MAP) 105/48 (67) 108/51 (70) 102/50 (67) Pulse Ox 100 100 100 O2 Delivery Nasal Cannula Nasal Cannula Nasal Cannula Room Air O2 Flow Rate 4.0 4.0 4.0 11/03/20 11/03/20 11/03/20 11/03/20 17:59 19:00 19:30 19:52 Temp 98.4 98.4 Pulse 75 89 Resp 24 18 18 B/P (MAP) 126/46 (72) 149/53 (85) Pulse Ox 100 99 100 O2 Delivery Nasal Cannula Nasal Cannula Nasal Cannula O2 Flow Rate 4.0 2.0 5.0 4.0 11/03/20 11/03/20 11/03/20 11/03/20 19:54 20:22 20:32 21:03 Pulse 75 Resp 18 18 18 B/P (MAP) 149/53 Pulse Ox 100 100 100 O2 Delivery Nasal Cannula O2 Flow Rate 5.0 5.0 5.0 11/03/20 11/03/20 11/03/20 11/04/20 23:00 23:13 23:43 02:45 Temp 98.4 98.4 Pulse 80 Resp 18 18 18 18 B/P (MAP) 151/70 (97) Pulse Ox 96 100 100 100 O2 Delivery Nasal Cannula Nasal Cannula Nasal Cannula Nasal Cannula O2 Flow Rate 2.0 5.0 5.0 5.0 11/04/20 11/04/20 11/04/20 11/04/20 03:00 03:15 06:23 07:00 Temp 98.0 98.2 98.0 98.2 Pulse 71 74 Resp 20 18 18 18 B/P (MAP) 128/62 (84) 154/73 (100) Pulse Ox 100 100 100 98 O2 Delivery Nasal Cannula Nasal Cannula Nasal Cannula Nasal Cannula O2 Flow Rate 2.0 2.0 5.0 2.0 Intake and Output 11/03/20 11/03/20 11/04/20 15:00 23:00 07:00 Intake Total 240 ml 240 ml Balance 240 ml 240 ml Justicifation of Admission Dx: Justifications for Admission: Justification of Admission Dx: Yes Respiratory Failure: Severe Resp Distress Chronic Renal Failure: Electrolyte Abnormality PHILLIP MENDOZA MD Nov 04, 2020 08:54
[2020-11-04] MEDS: VITS A & D/LANOLIN TOPICAL OINTMENT 42GM TUBE. TP SCH (09:00)
--- NOTE | 2020-11-04 09:31 | PDOC ---
DATE OF SERVICE DATE: 11/04/20 TIME: 09:30 SUBJECTIVE ROS stable OBJECTIVE Vital Signs Vital Signs Date Time Temp Pulse Resp B/P (MAP) Pulse Ox O2 Delivery O2 Flow Rate FiO2 11/04/20 07:00 98.2 74 18 154/73 (100) 98 Nasal Cannula 2.0 98.2 I & 0 Intake and Output 11/04/20 07:00 Intake Total 480 ml Balance 480 ml Intake Oral 480 ml PHYSICAL EXAM Physical Exam GENERAL:NAD HEENT: OM moist on o2 by nc 5-6 lts Chronic NECK: Supple. LUNGS: diminished breath sounds, non labored CARDIOVASCULAR: S1S2 ABDOMEN: Soft, nontender. EXTREMITIES s/p BKA Rt LE ; UE digit amputations NEURO grossly normal Vital Signs DIAGNOSIS/ASSESSMENT Assessment & Plan ESRD: on HD MWF; Currently no emergent indication for dialysis today Shortness of breath - missed dialysis on tuesday , was at for appt , Cxr Cardiomegaly, increased bilateral opacities and small right pleural effusion, which can be seen with atypical pneumonia or pulmonary edema. Hyperkalemia - mild, POA Anemia- SHANAE as indicated, PRBC for Hgb < 7 History of Acute respiratory failure with hypoxia- requiring intubation Diastolic CHF Severe PAD with gangrenous eschar on the right foot with ischemic rest pain. 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 Status post finger amputations bilaterally. History of COVID infection on 09/24/2019 and October 09 2019, chronic back pain - with radiculopathy H/o Seizures - on keppra Hypertension cont meds DC per primary COMMENT/RELEVANT DATA Meds Current Medications Medications (Trade) Dose Ordered Sig/Mary Kay Start Time Stop Time Status Last Admin Dose Admin Acetaminophen (Tylenol) 650 mg PRN Q6HRS PRN 11/03/20 12:45 Al Hydroxide/Mg Hydroxide (Mylanta Plus Xs) 30 ml PRN Q3HRS PRN 11/03/20 12:45 Albumin Human 100 ml @ 100 mls/hr 1X PRN PRN 11/03/20 11:15 11/03/20 17:14 DC 11/03/20 16:00 100 MLS/HR Albuterol Sulfate (Ventolin Neb Soln) 2.5 mg PRN Q4HRS PRN 11/03/20 11:45 Amlodipine Besylate (Norvasc) 10 mg DAILY 11/03/20 14:00 Aspirin (Aspirin Chewable) 81 mg DAILY 11/03/20 14:00 Bisacodyl (Dulcolax Supp) 10 mg PRN DAILY PRN 11/03/20 11:44 Calcium Carbonate/ Glycine (Tums) 500 mg PRN Q3HRS PRN 11/03/20 12:45 Carvedilol (Coreg) 25 mg BIDWMEALS 11/03/20 17:00 Dextrose (Dextrose 50%-Water Syringe) 12.5 gm PRN Q15MIN PRN 11/03/20 09:15 Fentanyl Citrate (Fentanyl 2ml Vial) 50 mcg PRN Q2HRS PRN 11/03/20 09:15 11/04/20 06:23 50 MCG Gabapentin (Neurontin) 300 mg DAILY08 11/04/20 08:00 Hydralazine HCl (Apresoline Inj) 10 mg PRN Q4HRS PRN 11/03/20 11:45 Hydralazine HCl (Apresoline) 75 mg BID 11/03/20 14:00 11/03/20 19:54 75 MG Hydromorphone HCl (Dilaudid) 2 mg PRN TID PRN 11/03/20 11:45 11/03/20 19:52 2 MG Info (PHARMACY MONITORING -- do not chart) 1 each PRN DAILY PRN 11/03/20 11:15 Insulin Human Lispro (HumaLOG) 0-5 UNITS TIDWMEALS 11/03/20 12:00 Levetiracetam (Keppra) 375 mg BID 11/03/20 14:00 11/03/20 19:53 375 MG Lubiprostone (Amitiza) 24 mcg BIDWMEALS 11/03/20 17:00 Magnesium Hydroxide (Milk Of Magnesia) 2,400 mg PRN Q12HR PRN 11/03/20 12:45 Nicotine (Nicoderm Cq 14mg) 1 patch PRN DAILY PRN 11/03/20 11:45 Ondansetron HCl (Zofran Odt) 4 mg PRN Q6HRS PRN 11/03/20 11:45 Ondansetron HCl (Zofran) 4 mg PRN Q6HRS PRN 11/03/20 12:45 Sevelamer Carbonate (Renvela) 800 mg TID 11/03/20 14:00 11/03/20 20:32 800 MG Sodium Chloride 1,000 ml @ 400 mls/hr Q2H30M PRN 11/03/20 11:15 11/03/20 23:14 DC Vitamin A/Vitamin D (Vitamin A & D Ointment) 1 sheldon BID 11/03/20 21:00 Vitamin B Complex/ Vitamin C (Wendy-Marvin) 1 tab DAILY 11/03/20 14:00 Warfarin Sodium (Coumadin Per Pharmacy) 1 each PRN DAILY PRN 11/03/20 11:45 Warfarin Sodium (Coumadin) 4 mg DAILY16 11/03/20 16:00 Zolpidem Tartrate (Ambien) 5 mg PRN QHS PRN 11/03/20 12:45 11/03/20 23:13 5 MG Lab Laboratory Tests Test 11/03/20 19:52 11/04/20 07:27 Glucose (Fingerstick) 111 mg/dL (70-99) 119 mg/dL (70-99) Results All relevant outside records, renal labs, imaging studies, telemetry/EKG's were reviewed. Justicifation of Admission Dx: Justifications for Admission: Justification of Admission Dx: Yes Respiratory Failure: Severe Resp Distress Chronic Renal Failure: Electrolyte Abnormality KADY STEARNS MD Nov 04, 2020 09:31
[2020-11-04] MEDS: HYDROmorphone 2 MG TABLET PO PRN (09:51)
[2020-11-04] MEDS: FOLIC/VIT B COMP W-C (RENAL) TABLET. PO SCH (09:51)
[2020-11-04] MEDS: ACETAMINOPHEN 500 MG TABLET PO SCH (09:53)
[2020-11-04] MEDS: CARVEDILOL 12.5 MG TABLET. PO SCH (09:54)
[2020-11-04] MEDS: ASPIRIN CHEWABLE 81 MG TABLET. PO SCH (09:56)
[2020-11-04] MEDS: SEVELAMER CARBONATE 800 MG TABLET. PO SCH (09:56)
[2020-11-04] MEDS: levETIRAcetam 250 MG TABLET PO SCH (09:57)
[2020-11-04 10:40] VITALS: BP 158/68
--- NOTE | 2020-11-04 11:05 | NUR ---
[facility] following. Discussed with RN, pt from home, 2L, renal diet. Nephrology following. COVID-19 negative. [facility] will continue to follow. Addendum: 11/04/20 at 1429 by SID XIAO Discharge order for home with self care. Stretcher transportation arranged with [facility] for [facility]. RN notified.
--- NOTE | 2020-11-04 13:30 | PDOC3 ---
Discharge Summary Date of Admission: Nov 03, 2020 Date of Discharge: Nov 04, 2020 Follow-Up: 1-2 days Admitting Diagnosis comment: Chief Complaint Chief Complaint FINDINGS: The cardiac silhouette is enlarged, unchanged. There are increased diffuse airspace opacities bilaterally. Small right pleural effusion. No pneumothorax. There are surgical clips in the left axilla. IMPRESSION: Cardiomegaly, increased bilateral opacities and small right pleural effusion, which can be seen with atypical pneumonia or pulmonary edema. VTE Prophylaxis Ordered VTE Prophylaxis Devices: No VTE Pharmacological Prophylaxi: Yes History of Present Illness History of Present Illness Patient is a 35-year-old female past medical history ESRD on HD, presents to the ED from her nursing facility with complaints of shortness of breath. Her [facility] facility. Normally wears 6 L O2 by nasal cannula, and was saturating in the high 90s on 6 L upon arrival to the ED. patient reportedly missed hemodialysis on Tuesday as she was being seen at . Labs on admission showed WBC 11.6, hemoglobin 7.3, hematocrit 22.2 sodium 132, potassium 5.5, BUN 87, creatinine 9.0, CBG 164, BNP >35,000, albumin 2.7, CRP 94.7. Chest x-ray showed cardiomegaly, increased bilateral opacities, and small right pleural effusion. Will admit patient for further medical management. Past Medical History Cardiovascular: CHF, HTN, Hyperlipidemia Pulmonary: Pulmonary embolus CENTRAL NERVOUS SYSTEM: Periperal neuropathy, Seizure CONSULTS NEPHROLOGY COMPLICATIONS NONE D/C CONDITION GOOD DISCHARGE DX Assessment/Plan Volume overload ESRD on HD Missed hemodialysis Subtherapeutic INR Severe malnutrition Plan: Consult nephrology resume her regular HD schedule and hopefully will be improved after the fluid is removed. Elevated CRP likely secondary to her underlying vasculitis Resume home medications FEN - Cardiac diet PPX - Warfarin FULL CODE Dispo - inpatient for above 8-31Severe PAD with gangrenous eschar on the right foot with ischemic rest pain. 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 Her [facility] facility. Normally wears 6 L O2 by nasal cannula, and was saturating in the high 90s on 6 L upon arrival to the ED. patient reportedly missed hemodialysis on Tuesday as she was being seen at . Labs on admission showed WBC 11.6, hemoglobin 7.3, hematocrit 22.2 sodium 132, potassium 5.5, BUN 87, creatinine 9.0, CBG 164, BNP >35,000, albumin 2.7, CRP 94.7. Chest x-ray showed cardiomegaly, increased bilateral opacities, and small right pleural effusion. Will admit patient for further medical management. Past Medical History Cardiovascular: CHF, HTN, Hyperlipidemia Pulmonary: Pulmonary embolus CENTRAL NERVOUS SYSTEM: Periperal neuropathy, Seizure Heme/Onc: Anemia NOS Psych: Anxiety, Depression Rheumatologic: Gout Renal/: Chronic renal failure Endocrine: Diabetes, Hyperparathyroidism Past Surgical History Past Surgical History: Hysterectomy Family History Family History: Diabetes, Hypertension, Kidney Disease Social History Smoke: <1 pack per day ALCOHOL: none Drugs: Marijuana Current Problem List Problem List Problems Medical Problems: (1) Pulmonary edema Status: Acute Current Medications Current Medications Current Medications Fentanyl Citrate (Fentanyl 2ml Vial) 75 mcg 1X ONCE IV Last administered on 11/03/20at 09:04; Start 11/03/20 at 07:00; Stop 11/03/20 at 09:03; Status DC Fentanyl Citrate (Fentanyl 2ml Vial) 75 mcg 1X ONCE IM ; Start 11/03/20 at 09:15; Stop 11/03/20 at 09:06; Status DC Fentanyl Citrate (Fentanyl 2ml Vial) 75 mcg 1X ONCE IV Last administered on 11/03/20at 10:05; Start 11/03/20 at 09:45; Stop 11/03/20 at 09:46; Status DC Ondansetron HCl (Zofran) 4 mg PRN Q8HRS PRN IVP NAUSEA/VOMITING; Start 11/03/20 at 09:15; Stop 11/04/20 at 09:14 Fentanyl Citrate (Fentanyl 2ml Vial) 50 mcg PRN Q2HRS PRN IVP PAIN; Start 11/03/20 at 09:15 Insulin Human Lispro (HumaLOG) 0-5 UNITS TIDWMEALS SQ ; Start 11/03/20 at 12:00 Dextrose (Dextrose 50%-Water Syringe) 12.5 gm PRN Q15MIN PRN IV SEE COMMENTS; Start 11/03/20 at 09:15 Sodium Chloride 1,000 ml @ 1,000 mls/hr Q1H PRN IV hypotension; Start 11/03/20 at 11:15; Stop 11/03/20 at 17:14 Albumin Human 100 ml @ 100 mls/hr 1X PRN PRN IV Hypotension; Start 11/03/20 at 11:15; Stop 11/03/20 at 17:14 Sodium Chloride 1,000 ml @ 400 mls/hr Q2H30M PRN IV PATENCY; Start 11/03/20 at 11:15; Stop 11/03/20 at 23:14 Info (PHARMACY MONITORING -- do not chart) 1 each PRN DAILY PRN MC SEE COMMENTS; Start 11/03/20 at 11:15; Stop 11/03/20 at 11:18; Status DC Info (PHARMACY MONITORING -- do not chart) 1 each PRN DAILY PRN MC SEE COMMENTS; Start 11/03/20 at 11:15 Active Scripts Active Dilaudid (Hydromorphone Hcl) 2 Mg Tablet 1 Tab PO PRN TID PRN MDD 3 Tablet(s) 5 Days Gabapentin 300 Mg Capsule 300 Mg PO DAILY08 30 Days Ondansetron Odt (Ondansetron) 4 Mg Tab.rapdis 4 Mg PO PRN Q6HRS PRN 14 Days Bisacodyl 10 Mg Supp.rect 10 Mg PA PRN DAILY PRN 14 Days Keppra (Levetiracetam) 250 Mg Tablet 375 Mg PO BID 30 Days Hydralazine Hcl 50 Mg Tablet 75 Mg PO BID 30 Days Proair Hfa (Albuterol Sulfate) 8.5 Gm Hfa.aer.ad 2.5 Mg NEB PRN Q4HRS PRN 14 Days Amitiza (Lubiprostone) 24 Mcg Capsule 24 Mcg PO BIDWMEALS 30 Days [Diclofenac Sodium] 100 GM Gel..gram. 1 Day TP BID 30 Days Reported Warfarin Sodium 4 Mg Tablet 4 Mg PO DAILY Novolog (Insulin Aspart) 100 Unit/1 Ml Vial 0-12 Unit SQ TIDAC NICODERM CQ 14mg (Nicotine) 1 Each Patch.td24 1 Patch TP DAILY Acetaminophen 500 Mg Tablet 1,000 Mg PO TID A and D Ointment (Vits A and D/White Pet/Lanolin) 42.5 Gm Oint...g. 42.5 Gm TP BID Renvela (Sevelamer Carbonate) 800 Mg Tablet 1 Tab PO TID 30 Days Wendy-Marvin Tablet (Folic Acid/Vitamin B Comp W-C) 0.8 Mg Tablet 1 Tab PO DAILY 30 Days Protonix (Pantoprazole Sodium) 20 Mg Tablet.dr 2 Tab PO DAILY Carvedilol 25 Mg Tablet 25 Mg PO BIDWMEALS Aspirin 81 Mg Tab.chew 1 Tab PO DAILY Amlodipine Besylate 10 Mg Tablet 10 Mg PO DAILY Allergies Allergies: Coded Allergies: No Known Drug Allergies (Unverified , 12/05/17) ROS Review of System GENERAL: No history of weight change, weakness or fevers. SKIN: No bruising, hair changes or rashes. EYES: No blurred, double or loss of vision. NOSE AND THROAT: No history of nosebleeds, hoarseness or sore throat. HEART: Denies chest pain, denies palpitations. LUNGS: Shortness of breath. Denies hemoptysis, wheezing or shortness of breath. GASTROINTESTINAL: Denies nausea, vomiting, abdominal pain. GENITOURINARY: Denies dysuria, frequency, urgency, hematuria. NEUROLOGIC: Denies history of numbness, tingling, tremor or weakness. PSYCHIATRIC: Denies anxiety, denies depression. ENDOCRINE: No history of heat or cold intolerance, polyuria or polydipsia. EXTREMITIES: Denies muscle weakness, joint pain, pain on walking or stiffness. Vitals Vitals Vital Signs Date Time Temp Pulse Resp B/P (MAP) Pulse Ox O2 Delivery O2 Flow Rate FiO2 11/04/20 07:00 98.2 74 18 154/73 (100) 98 Nasal Cannula 2.0 98.2 Physical Exam General: Alert, Oriented X3, Cooperative, No acute distress Heart: Regular rate Lungs: Clear Abdomen: Normal bowel sounds, Soft Extremities: No cyanosis FINAL DIAGNOSIS Problems Medical Problems: (1) Decubitus ulcer of back Status: Acute (2) Pulmonary edema Status: Acute Brief Hospital Course Ms. Wilder is a 35 old [sex] who presented with [ PULM EDEMA, VOLUME OVERLOAD] CONDITION AT DISCHARGE: Improved Discharge Medications Current Medications Fentanyl Citrate (Fentanyl 2ml Vial) 75 mcg 1X ONCE IV Last administered on 11/03/20at 09:04; Start 11/03/20 at 07:00; Stop 11/03/20 at 09:03; Status DC Fentanyl Citrate (Fentanyl 2ml Vial) 75 mcg 1X ONCE IM ; Start 11/03/20 at 09:15; Stop 11/03/20 at 09:06; Status DC Fentanyl Citrate (Fentanyl 2ml Vial) 75 mcg 1X ONCE IV Last administered on 11/03/20at 10:05; Start 11/03/20 at 09:45; Stop 11/03/20 at 09:46; Status DC Ondansetron HCl (Zofran) 4 mg PRN Q8HRS PRN IVP NAUSEA/VOMITING Last administered on 11/04/20at 06:27; Start 11/03/20 at 09:15; Stop 11/04/20 at 09:14; Status DC Fentanyl Citrate (Fentanyl 2ml Vial) 50 mcg PRN Q2HRS PRN IVP PAIN Last administered on 11/04/20at 12:57; Start 11/03/20 at 09:15 Insulin Human Lispro (HumaLOG) 0-5 UNITS TIDWMEALS SQ ; Start 11/03/20 at 12:00 Dextrose (Dextrose 50%-Water Syringe) 12.5 gm PRN Q15MIN PRN IV SEE COMMENTS; Start 11/03/20 at 09:15 Sodium Chloride 1,000 ml @ 1,000 mls/hr Q1H PRN IV hypotension; Start 11/03/20 at 11:15; Stop 11/03/20 at 17:14; Status DC Albumin Human 100 ml @ 100 mls/hr 1X PRN PRN IV Hypotension Last administered on 11/03/20at 16:00; Start 11/03/20 at 11:15; Stop 11/03/20 at 17:14; Status DC Sodium Chloride 1,000 ml @ 400 mls/hr Q2H30M PRN IV PATENCY; Start 11/03/20 at 11:15; Stop 11/03/20 at 23:14; Status DC Info (PHARMACY MONITORING -- do not chart) 1 each PRN DAILY PRN MC SEE COMMENTS; Start 11/03/20 at 11:15; Stop 11/03/20 at 11:18; Status DC Info (PHARMACY MONITORING -- do not chart) 1 each PRN DAILY PRN MC SEE COMMENTS; Start 11/03/20 at 11:15 Acetaminophen (Tylenol) 1,000 mg TID PO Last administered on 11/04/20at 09:53; Start 11/03/20 at 14:00 Albuterol Sulfate (Ventolin Neb Soln) 2.5 mg PRN Q4HRS PRN NEB SHORTNESS OF BREATH; Start 11/03/20 at 11:45 Amlodipine Besylate (Norvasc) 10 mg DAILY PO Last administered on 11/04/20 09:56; Start 11/03/20 at 14:00 Aspirin (Aspirin Chewable) 81 mg DAILY PO Last administered on 11/04/20 09:56; Start 11/03/20 at 14:00 Bisacodyl (Dulcolax Supp) 10 mg PRN DAILY PRN PA CONSTIPATION; Start 11/03/20 at 11:44 Vitamin B Complex/ Vitamin C (Wendy-Marvin) 1 tab DAILY PO Last administered on 11/04/20at 09:51; Start 11/03/20 at 14:00 Gabapentin (Neurontin) 300 mg DAILY08 PO Last administered on 11/04/20 09:56; Start 11/04/20 at 08:00 Hydralazine HCl (Apresoline) 75 mg BID PO Last administered on 11/04/20 09:52; Start 11/03/20 at 14:00 Hydromorphone HCl (Dilaudid) 2 mg PRN TID PRN PO pain Last administered on 11/04/20 09:51; Start 11/03/20 at 11:45 Levetiracetam (Keppra) 375 mg BID PO Last administered on 11/04/20 09:57; Start 11/03/20 at 14:00 Lubiprostone (Amitiza) 24 mcg BIDWMEALS PO ; Start 11/03/20 at 17:00 Nicotine (Nicoderm Cq 14mg) 1 patch PRN DAILY PRN TD SMOKING CESSATION; Start 11/03/20 at 11:45 Ondansetron HCl (Zofran Odt) 4 mg PRN Q6HRS PRN PO NAUSEA/VOMITING; Start 11/03/20 at 11:45 Sevelamer Carbonate (Renvela) 800 mg TID PO Last administered on 11/04/20at 09:56; Start 11/03/20 at 14:00 Vitamin A/Vitamin D (Vitamin A & D Ointment) 1 day BID TP ; Start 11/03/20 at 21:00 Warfarin Sodium (Coumadin) 4 mg DAILY16 PO ; Start 11/03/20 at 16:00 Carvedilol (Coreg) 25 mg BIDWMEALS PO Last administered on 11/04/20at 09:54; Start 11/03/20 at 17:00 Warfarin Sodium (Coumadin Per Pharmacy) 1 each PRN DAILY PRN MC SEE COMMENTS; Start 11/03/20 at 11:45 Hydralazine HCl (Apresoline Inj) 10 mg PRN Q4HRS PRN IVP HYPERTENSION; Start 11/03/20 at 11:45 Ondansetron HCl (Zofran) 4 mg PRN Q6HRS PRN IVP NAUSEA/VOMITING; Start 11/03/20 at 12:45 Al Hydroxide/Mg Hydroxide (Mylanta Plus Xs) 30 ml PRN Q3HRS PRN PO HEARTBURN / GAS; Start 11/03/20 at 12:45 Calcium Carbonate/ Glycine (Tums) 500 mg PRN Q3HRS PRN PO UPSET STOMACH; Start 11/03/20 at 12:45 Zolpidem Tartrate (Ambien) 5 mg PRN QHS PRN PO INSOMNIA, MAY REPEAT IN 1HR Last administered on 11/03/20at 23:13; Start 11/03/20 at 12:45 Acetaminophen (Tylenol) 650 mg PRN Q6HRS PRN PO Headaches, Temp > 101.5F; Start 11/03/20 at 12:45 Magnesium Hydroxide (Milk Of Magnesia) 2,400 mg PRN Q12HR PRN PO CONSTIPATION; Start 11/03/20 at 12:45 Active Scripts Active Dilaudid (Hydromorphone Hcl) 2 Mg Tablet 1 Tab PO PRN TID PRN MDD 3 Tablet(s) 5 Days Gabapentin 300 Mg Capsule 300 Mg PO DAILY08 30 Days Ondansetron Odt (Ondansetron) 4 Mg Tab.rapdis 4 Mg PO PRN Q6HRS PRN 14 Days Bisacodyl 10 Mg Supp.rect 10 Mg PA PRN DAILY PRN 14 Days Keppra (Levetiracetam) 250 Mg Tablet 375 Mg PO BID 30 Days Hydralazine Hcl 50 Mg Tablet 75 Mg PO BID 30 Days Proair Hfa (Albuterol Sulfate) 8.5 Gm Hfa.aer.ad 2.5 Mg NEB PRN Q4HRS PRN 14 Days Amitiza (Lubiprostone) 24 Mcg Capsule 24 Mcg PO BIDWMEALS 30 Days [Diclofenac Sodium] 100 GM Gel..gram. 1 Day TP BID 30 Days Reported Novolog (Insulin Aspart) 100 Unit/1 Ml Vial 0-12 Unit SQ TIDAC NICODERM CQ 14mg (Nicotine) 1 Each Patch.td24 1 Patch TP DAILY Acetaminophen 500 Mg Tablet 1,000 Mg PO TID A and D Ointment (Vits A and D/White Pet/Lanolin) 42.5 Gm Oint...g. 42.5 Gm TP BID Renvela (Sevelamer Carbonate) 800 Mg Tablet 1 Tab PO TID 30 Days Wedny-Marvin Tablet (Folic Acid/Vitamin B Comp W-C) 0.8 Mg Tablet 1 Tab PO DAILY 30 Days Protonix (Pantoprazole Sodium) 20 Mg Tablet.dr 2 Tab PO DAILY Carvedilol 25 Mg Tablet 25 Mg PO BIDWMEALS Aspirin 81 Mg Tab.chew 1 Tab PO DAILY Amlodipine Besylate 10 Mg Tablet 10 Mg PO DAILY Vital Signs Vital Signs Date Time Temp Pulse Resp B/P (MAP) Pulse Ox O2 Delivery O2 Flow Rate FiO2 11/04/20 12:57 96 Nasal Cannula 2.0 11/04/20 10:40 98.4 75 18 158/68 (98) 98.4 Labs Laboratory Tests Test 11/03/20 08:03 11/03/20 08:25 11/03/20 19:52 11/04/20 07:27 SARS-CoV-2 RNA (RUBA) Negative (Negative) SARS-CoV-2 Antigen (Rapid) Negative (NEGATIVE) White Blood Count 11.6 x10^3/uL (4.0-11.0) Red Blood Count 2.35 x10^6/uL (3.50-5.40) Hemoglobin 7.3 g/dL (12.0-15.5) Hematocrit 22.2 % (36.0-47.0) Mean Corpuscular Volume 94 fL (79-100) Mean Corpuscular Hemoglobin 31 pg (25-35) Mean Corpuscular Hemoglobin Concent 33 g/dL (31-37) Red Cell Distribution Width 17.7 % (11.5-14.5) Platelet Count 348 x10^3/uL (140-400) Neutrophils (%) (Auto) 73 % (31-73) Lymphocytes (%) (Auto) 8 % (24-48) Monocytes (%) (Auto) 9 % (0-9) Eosinophils (%) (Auto) 9 % (0-3) Basophils (%) (Auto) 1 % (0-3) Neutrophils # (Auto) 8.5 x10^3/uL (1.8-7.7) Lymphocytes # (Auto) 0.9 x10^3/uL (1.0-4.8) Monocytes # (Auto) 1.1 x10^3/uL (0.0-1.1) Eosinophils # (Auto) 1.1 x10^3/uL (0.0-0.7) Basophils # (Auto) 0.1 x10^3/uL (0.0-0.2) Segmented Neutrophils % 71 % (35-66) Band Neutrophils % 1 % (0-9) Lymphocytes % 14 % (24-48) Monocytes % 8 % (0-10) Eosinophils % 6 % (0-5) Platelet Estimate Adequate (ADEQUATE) Anisocytosis Slight Erythrocyte Sedimentation Rate > 130 (0-25) Prothrombin Time 16.2 SEC (11.7-14.0) Prothromb Time International Ratio 1.3 (0.8-1.1) Activated Partial Thromboplast Time 39 SEC (24-38) Sodium Level 133 mmol/L (136-145) Potassium Level 5.5 mmol/L (3.5-5.1) Chloride Level 96 mmol/L (98-107) Carbon Dioxide Level 22 mmol/L (21-32) Anion Gap 15 (6-14) Blood Urea Nitrogen 87 mg/dL (7-20) Creatinine 9.0 mg/dL (0.6-1.0) Estimated GFR (Cockcroft-Gault) 6.0 BUN/Creatinine Ratio 10 (6-20) Glucose Level 164 mg/dL (70-99) Lactic Acid Level 0.8 mmol/L (0.4-2.0) Calcium Level 9.2 mg/dL (8.5-10.1) Magnesium Level 2.9 mg/dL (1.8-2.4) Total Bilirubin 0.4 mg/dL (0.2-1.0) Aspartate Amino Transf (AST/SGOT) 31 U/L (15-37) Alanine Aminotransferase (ALT/SGPT) 36 U/L (14-59) Alkaline Phosphatase 155 U/L (46-116) Creatine Kinase 25 U/L (26-192) Creatine Kinase MB (Mass) 1.4 ng/mL (0.0-3.6) Creatine Kinase MB Relative Index % (0-4) Troponin I Quantitative < 0.017 ng/mL (0.000-0.055) C-Reactive Protein, Quantitative 94.7 mg/L (0-3.3) BT-Xne-D-Type Natriuretic Peptide > 00231 pg/mL (0-124) Total Protein 8.0 g/dL (6.4-8.2) Albumin 2.7 g/dL (3.4-5.0) Albumin/Globulin Ratio 0.5 (1.0-1.7) Glucose (Fingerstick) 111 mg/dL (70-99) 119 mg/dL (70-99) Test 11/04/20 11:57 Glucose (Fingerstick) 178 mg/dL (70-99) Laboratory Tests Test 11/03/20 19:52 11/04/20 07:27 11/04/20 11:57 Glucose (Fingerstick) 111 mg/dL (70-99) 119 mg/dL (70-99) 178 mg/dL (70-99) Allergies Allergies Coded Allergies Type Severity Reaction Last Updated Verified No Known Drug Allergies 12/05/17 No Disposition/Orders: D/C to Home Justicifation of Admission Dx: Justifications for Admission: Justification of Admission Dx: Yes Respiratory Failure: Severe Resp Distress Chronic Renal Failure: Electrolyte Abnormality PHILLIP MENDOZA MD Nov 04, 2020 13:30
--- NOTE | 2020-11-04 13:32 | DISCH ---
DISCHARGE INSTRUCTIONS Condition on Discharge Condition on Discharge: Stable Activity After Discharge Activity Instructions for Disc: Activity as tolerated Bathing Instructions: Shower-keep dressing dry, No Tub Bath until see Lifting Instructions after Dis: No pulling or pushing, Do not lift >10 pounds Exercise Instruction after Dis: Progress as tolerated Driving Instructions after Dis: Do not drive, Do not drive today Weight Bearing Status after Di: As tolerated Diet after Discharge Diet after Discharge: Renal Dialysis, Diabetic No Calorie Level, Level II Dysph, Ground Diet Texture: Regular Liquid Texture: Thin Liquid, Honey-thick Swallowing Supervision: None needed Wound Incision Care Wound/Incision Care: Keep wound/cast CDI Checks after Discharge Checks after discharge: Check blood press - daily, Check your Temp as needed, Weigh Yourself Daily Contacting the DRRichelle after DC Call your doctor for: If your condition worsens Follow-Up Follow up with: DIALYSIS DIRECTED Treatment/Equipment after DC Adaptive Equipment Issued: Wheelchair Discharge Respiratory Equipmen: Oxygen PHILLIP MENDOZA MD Nov 04, 2020 13:32
[2020-11-04 15:00] VITALS: BP 124/61
--- NOTE | 2020-11-04 15:43 | NUR ---
warfarin non admin d/t patient said her physician put her on eliquis 1 month a day. 5 mg BID. Not able to update in home med list as meds have been finalized in discharge.
[2020-11-04] MEDS ORDERED: WARFARIN 3 MG TABLET. PO ONE (16:00)
--- NOTE | 2020-11-04 16:33 | NUR ---
patient discharged home via EMS. IV removed intact. pt on 4L nc upon DC. pt stable and cooperative up discharge.
== END 2020-11-04 16:00 | disposition home or self-care (01) | DRG 640 ==
LOC: ER 22:21 → ED HOLD 11-03 09:04 → 5 NORTH 11-03 10:10
PROVIDERS: ADMIT Family Medicine; ATTEND Family Medicine
PROC: 5A1D70Z Performance of Urinary Filtration, Intermittent, Less than 6 Hours Per Day (ICD-10-PCS; principal; 2020-11-03)
DX: E87.5 Hyperkalemia (principal); N18.6 End stage renal disease; E43 Unspecified severe protein-calorie malnutrition; I13.2 Hypertensive heart and chronic kidney disease with heart failure and with stage 5 chronic kidney disease, or end stage renal disease; I50.30 Unspecified diastolic (congestive) heart failure; E87.70 Fluid overload, unspecified; E11.22 Type 2 diabetes mellitus with diabetic chronic kidney disease; E78.5 Hyperlipidemia, unspecified; F17.210 Nicotine dependence, cigarettes, uncomplicated; J44.9 Chronic obstructive pulmonary disease, unspecified; L89.109 Pressure ulcer of unspecified part of back, unspecified stage; E21.3 Hyperparathyroidism, unspecified; F32.9 Major depressive disorder, single episode, unspecified; F41.9 Anxiety disorder, unspecified; E11.40 Type 2 diabetes mellitus with diabetic neuropathy, unspecified; M10.9 Gout, unspecified; M19.90 Unspecified osteoarthritis, unspecified site; D64.9 Anemia, unspecified; G89.29 Other chronic pain; M54.9 Dorsalgia, unspecified; M54.10 Radiculopathy, site unspecified; Z20.822 Contact with and (suspected) exposure to COVID-19; Z79.01 Long term (current) use of anticoagulants; Z79.4 Long term (current) use of insulin; Z79.82 Long term (current) use of aspirin; Z79.899 Other long term (current) drug therapy; Z82.49 Family history of ischemic heart disease and other diseases of the circulatory system; Z83.3 Family history of diabetes mellitus; Z86.711 Personal history of pulmonary embolism; Z89.511 Acquired absence of right leg below knee; Z90.710 Acquired absence of both cervix and uterus; Z91.15 Patient's noncompliance with renal dialysis; Z98.891 History of uterine scar from previous surgery; Z99.2 Dependence on renal dialysis
CPT/HCPCS: 36415; 71045; 73130; 80053; 82553; 82962; 83605; 83735; 83880; 84484; 85007; 85025; 85610; 85651; 85730; 86140; 87426; 93005; 96374; 96376; J2405; J3010; P9046; U0003; U0005; 99291-25; G0378

== ENCOUNTER 2020-12-07 03:58 | Inpatient (IN) | payer MEDICARE, OTHER ==
[~2020-12-07] VITALS: Ht 152.4 cm; Wt 61.2 kg
[2020-12-07] MEDS ORDERED: ONDANSETRON PF 4 MG/2 ML VIAL. IVP ONE (04:45)
[2020-12-07] MEDS ORDERED: MORPHINE SULFATE 4 MG/ML INJ. IVP ONE (04:45)
--- NOTE | 2020-12-07 04:55 | RAD ---
Single view chest dated 12/07/2020 4:51 AM: COMPARISON: 11/07/2020 Clinical Indication: Shortness of breath. Findings: Single upright portable exam of the chest was performed. Heart size is mildly enlarged. There is wide spread airspace disease, most predominant at the perihilar and bibasilar regions. Blunting the right costophrenic sulcus. No pneumothorax. As compared the prior exam, there has been mild improvement. IMPRESSION: 1. Mild improvement in bilateral airspace disease. 2. Small right pleural effusion. Electronically signed by: Shawn Garcia MD (12/07/2020 4:52 AM) LEANN
[2020-12-07] MEDS ORDERED: hydrALAZINE 20 MG/ML VIAL. IVP ONE (05:00)
--- NOTE | 2020-12-07 05:09 | PHYS DOC ---
Past Medical History Past Medical History: Anxiety, Arthritis, Depression, Diabetes-Type II, H ypertension, Renal Failure, Other Additional Past Medical Histor: NEUROPATHY, PE, FIBROIDS Past Surgical History: , Hysterectomy, Other Additional Past Surgical Histo: kidney biopsy,dialysis cath R chest,UTERINE ABLATION;L ARM GRAFT,R BKA,TOE Smoking Status: Never Smoker Alcohol Use: None Drug Use: Marijuana General Adult EDM: Chief Complaint: DYSPNEA/RESPIRATORY DISTRESS HPI: HPI: Patient is a 35 year old female with history of end-stage renal failure on hemodialysis every Tuesday and Tuesday, call EMS this morning to take her to the hospital because she was having trouble breathing and chest pain. Patient says she missed her dialysis on Tuesday. Patient denies any cough or fever. Patient denies any abdominal pain. Patient has been evaluated here multiple times for the same problem IN THE PAST . Review of Systems: Review of Systems: Constitutional: Denies fever or chills. [] Eyes: Denies change in visual acuity. [] HENT: Denies nasal congestion or sore throat. [] Respiratory: Denies cough, positive for shortness of AIR. Cardiovascular: Positive chest pain, positive for trouble breathing. GI: Denies abdominal pain, nausea, vomiting, bloody stools or diarrhea. [] : Denies dysuria. [] Musculoskeletal: Denies back pain or joint pain. [] Integument: Denies rash. [] Neurologic: Denies headache, focal weakness or sensory changes. [] Endocrine: Denies polyuria or polydipsia. [] Lymphatic: Denies swollen glands. [] Psychiatric: Denies depression or anxiety. [] Heart Score: C/O Chest Pain: Yes HEART Score for Chest Pain: HEART Score for Chest Pain Response (Comments) Value History Slighlty/Non-Suspicious 0 ECG Nonspecific Repolarizatio 1 Troponin < Normal Limit 0 Total 1 Risk Factors: Risk Factors: DM, Current or recent (<one month) smoker, HTN, HLP, family history of CAD, obesity. Risk Scores: Score 0 - 3: 2.5% MACE over next 6 weeks - Discharge Home Score 4 - 6: 20.3% MACE over next 6 weeks - Admit for Clinical Observation Score 7 - 10: 72.7% MACE over next 6 weeks - Early Invasive Strategies Current Medications: Current Medications Medications (Trade) Dose Ordered Sig/Mary Kay Start Time Stop Time Status Last Admin Dose Admin Hydralazine HCl (Apresoline Inj) 10 mg 1X ONCE 12/07/20 05:00 12/07/20 05:01 DC Morphine Sulfate (Morphine Sulfate) 4 mg 1X ONCE 12/07/20 04:45 12/07/20 04:46 DC Ondansetron HCl (Zofran) 4 mg 1X ONCE 12/07/20 04:45 12/07/20 04:46 DC Allergies: Allergies: Allergies Coded Allergies Type Severity Reaction Last Updated Verified No Known Drug Allergies 12/05/17 No Physical Exam: PE: Constitutional: Well developed, well nourished, no acute distress, non-toxic appearance. [] HENT: Normocephalic, atraumatic, bilateral external ears normal, oropharynx moist, no oral exudates, nose normal. [] Eyes: PERRLA, EOMI, conjunctiva normal, no discharge. [] Neck: Normal range of motion, no tenderness, supple, no stridor. [] Cardiovascular:Heart rate regular rhythm, no murmur [] Lungs & Thorax: Bilateral breath sounds WITH RALES to auscultation , NO RESPIRATORY DISTRESS. Abdomen: Bowel sounds normal, soft, no tenderness, no masses, no pulsatile masses. [] Skin: Warm, dry, no erythema, no rash. [] Back: No tenderness, no CVA tenderness. [] Extremities: No tenderness, no cyanosis, no clubbing, ROM intact, no edema. [] Neurologic: Alert and oriented X 3, normal motor function, normal sensory function, no focal deficits noted. [] Psychologic: Affect normal, judgement normal, mood normal. [] Current Patient Data: Labs: Current Medications Medications (Trade) Dose Ordered Sig/Mary Kay Route PRN Reason Start Time Stop Time Status Last Admin Dose Admin Morphine Sulfate (Morphine Sulfate) 4 mg 1X ONCE IVP 12/07/20 04:45 12/07/20 04:46 DC Ondansetron HCl (Zofran) 4 mg 1X ONCE IVP 12/07/20 04:45 12/07/20 04:46 DC Hydralazine HCl (Apresoline Inj) 10 mg 1X ONCE IVP 12/07/20 05:00 12/07/20 05:01 DC EKG: EKG: EKG was done at 420, heart rate of 100 bpm , sinus rhythm, no ST segment elevation. Radiology/Procedures: Radiology/Procedures: [][facility] [address] [place], [place] [id number] IMAGING REPORT Signed PATIENT: JORGE ESTRADACOUNT: [id number] : 1985 LOCATION: ER AGE: 35 SEX: F EXAM STATUS: PRE ER ORD. PHYSICIAN: SEBASTIÁN DAMIAN DO REASON: SOA PROCEDURE: CHEST AP ONLY Single view chest dated 12/07/2020 4:51 AM: COMPARISON: 11/07/2020 Clinical Indication: Shortness of breath. Findings: Single upright portable exam of the chest was performed. Heart size is mildly enlarged. There is widespread airspace disease, most predominant at the perihilar and bibasilar regions. Blunting the right costophrenic sulcus. No pneumothorax. As compared the prior exam, there has been mild improvement. IMPRESSION: 1. Mild improvement in bilateral airspace disease. 2. Small right pleural effusion. Electronically signed by: Shawn Garcia MD (12/07/2020 4:52 AM) [facility] [place]CTATED and SIGNED BY: SHAWN GARCIA MD DATE: 12/07/20 [id number] 0 Course & Med Decision Making: Course & Med Decision Making Pertinent Labs and Imaging studies reviewed. (See chart for details) [] Alana Disclaimer: Alana Disclaimer: This electronic medical record was generated, in whole or in part, using a voice recognition dictation system. Departure Departure Impression: Primary Impression: ESRD (end stage renal disease) on dialysis Additional Impression: Uncontrolled hypertension Disposition: ADMITTED INPATIENT Admitting Physician: ELIZABETH (Dr. Marie) Condition: IMPROVED Referrals: NO PCP (PCP) SEBASTIÁN DAMIAN DO Dec 07, 2020 05:08
[2020-12-07] MEDS ORDERED: MORPHINE SULFATE 4 MG/ML INJ. IVP PRN (06:00)
[2020-12-07] MEDS ORDERED: ONDANSETRON PF 4 MG/2 ML VIAL. IVP PRN ×2 (06:00→07:15)
[2020-12-07 06:05] LABS: BASO # 0.1 x10^3/uL (0.0-0.2); BASO % 2 % (0-3); EOS # 0.8 x10^3/uL (0.0-0.7); EOS % 9 % (0-3); HEMATOCRIT 22.4 % (36.0-47.0); HEMOGLOBIN 7.2 g/dL (12.0-15.5); LYMPH # 0.8 x10^3/uL (1.0-4.8); LYMPH % 10 % (24-48); MEAN CORPUSCULAR HEMOGLOBIN 30 pg (25-35); MEAN CORPUSCULAR HGB CONC 32 g/dL (31-37); MEAN CORPUSCULAR VOLUME 92 fL (79-100); MONO % 12 % (0-9); NEUT # 5.9 x10^3/uL (1.8-7.7); NEUT % 68 % (31-73); PLATELET COUNT 297 x10^3/uL (140-400); RED BLOOD COUNT 2.43 x10^6/uL (3.50-5.40); RED CELL DISTRIBUTION WIDTH 17.4 % (11.5-14.5); WHITE BLOOD COUNT 8.7 x10^3/uL (4.0-11.0)
[2020-12-07 06:15] LABS: CALCIUM 9.4 mg/dL (8.5-10.1); CREATININE 8.1 mg/dL (0.6-1.0); GFR 6.8
[2020-12-07 06:18] LABS: POTASSIUM 5.4 mmol/L (3.5-5.1)
[2020-12-07 06:21] LABS: ALBUMIN 3.1 g/dL (3.4-5.0); ALBUMIN/GLOBULIN RATIO 0.6 (1.0-1.7); MAGNESIUM 2.6 mg/dL (1.8-2.4); TOTAL BILIRUBIN 0.4 mg/dL (0.2-1.0); TOTAL PROTEIN 8.1 g/dL (6.4-8.2)
[2020-12-07 07:00] VITALS: BP 156/82
--- NOTE | 2020-12-07 07:14 | EKG ---
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
[2020-12-07] MEDS ORDERED: ACETAMINOPHEN 325 MG TABLET. PO PRN (07:15)
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
[2020-12-07] MEDS: levETIRAcetam 250 MG TABLET PO SCH ×2 (08:40→20:27)
[2020-12-07] MEDS: CARVEDILOL 12.5 MG TABLET. PO SCH ×2 (08:41→17:37)
[2020-12-07] MEDS: PANTOPRAZOLE 40 MG TABLET.DR. PO SCH (08:43)
[2020-12-07] MEDS: fentaNYL PF VIAL 100 MCG/2 ML VIAL IVP PRN ×4 (08:43→23:52)
[2020-12-07] MEDS: ASPIRIN CHEWABLE 81 MG TABLET. PO SCH (08:43)
[2020-12-07] MEDS: GABAPENTIN 300 MG CAPSULE. PO SCH (08:44)
[2020-12-07] MEDS: NICOTINE 14MG PATCH. TD SCH (09:00)
[2020-12-07 11:00] VITALS: BP 133/75
[2020-12-07 11:13] LABS: PROTHROMBIN TIME PATIENT 17.2 SEC (11.7-14.0)
[2020-12-07] MEDS ORDERED: DEXTROSE 50% 25 GM / 50ML DISP.SYRIN. IV PRN (14:15)
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
[2020-12-07 15:00] VITALS: BP 119/87
[2020-12-07] MEDS: INSULIN LISPRO 300 UNITS/3 ML VIAL. SQ SCH (17:00)
[2020-12-07 19:00] VITALS: BP 117/65
[2020-12-07 22:50] VITALS: BP 120/62
[2020-12-08 02:46] VITALS: BP 118/58
[2020-12-08] MEDS: fentaNYL PF VIAL 100 MCG/2 ML VIAL IVP PRN ×4 (02:55→14:15)
[2020-12-08 07:00] VITALS: BP 129/65
[2020-12-08] MEDS: INSULIN LISPRO 300 UNITS/3 ML VIAL. SQ SCH ×3 (08:00→16:59)
[2020-12-08] MEDS: traMADol 50 MG TABLET PO PRN ×2 (08:00→16:59)
[2020-12-08] MEDS: CARVEDILOL 12.5 MG TABLET. PO SCH ×2 (08:00→16:59)
[2020-12-08] MEDS: NICOTINE 14MG PATCH. TD SCH (08:01)
[2020-12-08 08:33] LABS: ALBUMIN 2.9 g/dL (3.4-5.0); CALCIUM 9.1 mg/dL (8.5-10.1); CREATININE 9.3 mg/dL (0.6-1.0); GFR 5.8; PHOSPHORUS 8.8 mg/dL (2.6-4.7)
[2020-12-08 08:38] LABS: POTASSIUM 7.5 mmol/L (3.5-5.1)
[2020-12-08 08:54] LABS: HEMATOCRIT 21.8 % (36.0-47.0); HEMOGLOBIN 7.1 g/dL (12.0-15.5); RED BLOOD COUNT 2.32 x10^6/uL (3.50-5.40); RED CELL DISTRIBUTION WIDTH 17.3 % (11.5-14.5)
[2020-12-08] MEDS: levETIRAcetam 250 MG TABLET PO SCH (09:00)
[2020-12-08] MEDS ORDERED: DIALYSIS PATIENT. MC PRN (09:45)
[2020-12-08] MEDS ORDERED: IV NORMAL SALINE 1000ML BAG 1,000 ML IV PRN ×2 (09:45)
[2020-12-08] MEDS ORDERED: ALBUMIN HUMAN 25% 200 ML IV PRN (09:45)
--- NOTE | 2020-12-08 10:52 | NUR ---
SW following. Discussed with RN, pt from home, 5L (uses 5L at home), renal diet, rapid COVID-19 negative. Pt in dialysis today. Nephrology following. DAMEON will continue to follow. Addendum: 12/08/20 at 1527 by SID HORNE SW Discharge orders for home with self care. Wheelchair transport arranged with [employer] for between [id number]. Pt provided following address [address], [place], [address]. RN notified. Pt is a high risk readmission.
--- NOTE | 2020-12-08 11:14 | PDOC ---
DATE OF SERVICE DATE: 12/08/20 TIME: 11:11 SUBJECTIVE ROS Seen during dialysis, No complaints or concerns Resting comfortably OBJECTIVE Vital Signs Vital Signs Date Time Temp Pulse Resp B/P (MAP) Pulse Ox O2 Delivery O2 Flow Rate FiO2 12/08/20 09:00 76 129/65 12/08/20 08:00 Nasal Cannula 5.0 12/08/20 07:00 98.5 18 98 98.5 I & 0 Intake and Output 12/08/20 07:00 Intake Total 420 ml Balance 420 ml Intake Oral 420 ml PHYSICAL EXAM Physical Exam GENERAL:NAD HEENT: OM moist on o2 by nc 5-6 lts Chronic NECK: Supple. LUNGS: diminished breath sounds, non labored CARDIOVASCULAR: S1S2 ABDOMEN: Soft, nontender. EXTREMITIES s/p BKA Rt LE ; UE digit amputations NEURO grossly normal DIAGNOSIS/ASSESSMENT Assessment & Plan ESRD: on HD MWF; Chronic Non compliance and frequent Hospitalizations for SOB . Seen during dialysis, tolerating well. Continue as ordered, Rohan Holbrook Shortness of breath POA- resting comfortably, UF with dialysis . On Chronic home o2 . Defer to Primary Hyperkalemia - K high 7.5,, non complaince with treatments. getting Dialysis Acute anemia- SHANAE as indicated, PRBC for Hgb , < 7 History of Acute respiratory failure with hypoxia- requiring intubation Diastolic CHF Severe PAD with gangrenous eschar on the right foot with ischemic rest pain. 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 Status post finger amputations bilaterally. History of COVID infection on 09/24/2019 and October 09 2019, chronic back pain - with radiculopathy H/o Seizures - on keppra Hypertension cont meds Gluteal ulcer - stage 3, noted from prior admissions History of clotted AV fistula Status post CODE BLUE July and again August - recently discharged from [facility] on 10/08/2020 COMMENT/RELEVANT DATA Meds Current Medications Medications (Trade) Dose Ordered Sig/[employer] Start Time Stop Time Status Last Admin Dose Admin Acetaminophen (Tylenol) 650 mg PRN Q6HRS PRN 12/07/20 07:15 12/08/20 05:57 650 MG Albumin Human 200 ml @ 200 mls/hr 1X PRN PRN 12/08/20 09:45 12/08/20 15:44 Amlodipine Besylate (Norvasc) 10 mg DAILY 12/07/20 09:00 12/07/20 08:44 10 MG Aspirin (Aspirin Chewable) 81 mg DAILY 12/07/20 09:00 12/07/20 08:43 81 MG Carvedilol (Coreg) 25 mg BIDWMEALS 12/07/20 08:00 12/07/20 17:37 25 MG Dextrose (Dextrose 50%-Water Syringe) 12.5 gm PRN Q15MIN PRN 12/07/20 14:15 Fentanyl Citrate (Fentanyl 2ml Vial) 25 mcg PRN Q3HRS PRN 12/07/20 07:15 12/08/20 10:54 25 MCG Gabapentin (Neurontin) 300 mg DAILY08 12/07/20 08:00 12/07/20 08:44 300 MG Hydralazine HCl (Apresoline Inj) 10 mg 1X ONCE 12/07/20 05:00 12/07/20 05:01 DC 12/07/20 05:53 10 MG Hydralazine HCl (Apresoline) 75 mg BID 12/07/20 09:00 12/07/20 20:29 75 MG Info (PHARMACY MONITORING -- do not chart) 1 each PRN DAILY PRN 12/08/20 09:45 Insulin Human Lispro (HumaLOG) 0-5 UNITS TIDWMEALS 12/07/20 17:00 Levetiracetam (Keppra) 375 mg BID 12/07/20 09:00 12/07/20 20:27 375 MG Morphine Sulfate (Morphine Sulfate) 4 mg PRN Q2HR PRN 12/07/20 06:00 12/07/20 07:05 DC Nicotine (Nicoderm Cq 14mg) 1 patch DAILY 12/07/20 09:00 Ondansetron HCl (Zofran) 4 mg PRN Q4HRS PRN 12/07/20 07:15 Pantoprazole Sodium (Protonix) 40 mg DAILYAC 12/07/20 07:30 12/07/20 08:43 40 MG Sodium Chloride 1,000 ml @ 400 mls/hr Q2H30M PRN 12/08/20 09:45 12/08/20 21:44 Tramadol HCl (Ultram) 50 mg PRN Q6HRS PRN 12/07/20 14:15 12/08/20 08:00 50 MG Lab Laboratory Tests Test 12/07/20 12:18 12/07/20 19:41 12/08/20 05:35 Glucose (Fingerstick) 108 mg/dL (70-99) 98 mg/dL (70-99) White Blood Count 8.0 x10^3/uL (4.0-11.0) Red Blood Count 2.32 x10^6/uL (3.50-5.40) Hemoglobin 7.1 g/dL (12.0-15.5) Hematocrit 21.8 % (36.0-47.0) Mean Corpuscular Volume 94 fL (79-100) Mean Corpuscular Hemoglobin 31 pg (25-35) Mean Corpuscular Hemoglobin Concent 33 g/dL (31-37) Red Cell Distribution Width 17.3 % (11.5-14.5) Platelet Count 262 x10^3/uL (140-400) Sodium Level 137 mmol/L (136-145) Potassium Level 7.5 mmol/L (3.5-5.1) Chloride Level 98 mmol/L (98-107) Carbon Dioxide Level 25 mmol/L (21-32) Anion Gap 14 (6-14) Blood Urea Nitrogen 78 mg/dL (7-20) Creatinine 9.3 mg/dL (0.6-1.0) Estimated GFR (Cockcroft-Gault) 5.8 Glucose Level 106 mg/dL (70-99) Calcium Level 9.1 mg/dL (8.5-10.1) Phosphorus Level 8.8 mg/dL (2.6-4.7) Albumin 2.9 g/dL (3.4-5.0) Results All relevant outside records, renal labs, imaging studies, telemetry/EKG's were reviewed. Justicifation of Admission Dx: Justifications for Admission: Justification of Admission Dx: Yes Respiratory Failure: Severe Resp Distress Chronic Renal Failure: Electrolyte Abnormality KADY STEARNS MD Dec 08, 2020 11:14
--- NOTE | 2020-12-08 11:40 | DISCH ---
DISCHARGE INSTRUCTIONS Condition on Discharge Condition on Discharge: Guarded Activity After Discharge Activity Instructions for Disc: Activity as tolerated Bathing Instructions: Shower-keep dressing dry, No Tub Bath until see Lifting Instructions after Dis: No pulling or pushing, Do not lift >10 pounds Exercise Instruction after Dis: Progress as tolerated Driving Instructions after Dis: Do not drive Weight Bearing Status after Di: As tolerated Diet after Discharge Diet after Discharge: Renal Dialysis, Diabetic No Calorie Level Diet Texture: Regular Liquid Texture: Thin Liquid Swallowing Supervision: None needed Wound Incision Care Wound/Incision Care: Keep wound/cast CDI Checks after Discharge Checks after discharge: Check blood press - daily, Check blood sugar, ac/hs Contacting the DR. after DC Call your doctor for: If your condition worsens Follow-Up Follow up with: PCP within 2 weeks of discharge Follow Up With: Construction Craft Laborer as soon as civil designer for your scheduled hemodialysis Treatment/Equipment after DC Adaptive Equipment Issued: None Discharge Respiratory Equipmen: Oxygen DOMENICA COLLINS MD Dec 08, 2020 11:40
[2020-12-08] MEDS: ASPIRIN CHEWABLE 81 MG TABLET. PO SCH (14:19)
[2020-12-08] MEDS: PANTOPRAZOLE 40 MG TABLET.DR. PO SCH (14:19)
[2020-12-08] MEDS: GABAPENTIN 300 MG CAPSULE. PO SCH (14:19)
[2020-12-08 15:00] LABS: CALCIUM 9.4 mg/dL (8.5-10.1); CREATININE 4.5 mg/dL (0.6-1.0); GFR 13.5
[2020-12-08 16:59] VITALS: BP 172/83
--- NOTE | 2020-12-08 18:12 | NUR ---
Discharge Note: JORGE ESTRADA Discharge instructions and discharge home medications reviewed with Patient and a copy given. All questions have been answered and understanding verbalized. The following instructions and handouts were given: f/u with pcp within two weeks. Cont dialysis as scheduled. Discontinued lines and drains: Peripheral IV intact. Patient discharged to Home or Self Care with self via Wheelchair.
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
[2020-12-13] MEDS ORDERED: OXYC1TAB15 PO (11:31)
== END 2020-12-08 18:12 | disposition home or self-care (01) | DRG 291 ==
LOC: ER 03:58 → 5 SOUTH 05:54 → ER 07:35
PROVIDERS: ADMIT Internal Medicine; ATTEND Internal Medicine
PROC: 5A1D70Z Performance of Urinary Filtration, Intermittent, Less than 6 Hours Per Day (ICD-10-PCS; principal; 2020-12-08)
DX: I13.2 Hypertensive heart and chronic kidney disease with heart failure and with stage 5 chronic kidney disease, or end stage renal disease (principal); I50.31 Acute diastolic (congestive) heart failure; J96.21 Acute and chronic respiratory failure with hypoxia; N18.6 End stage renal disease; E87.5 Hyperkalemia; E11.40 Type 2 diabetes mellitus with diabetic neuropathy, unspecified; E11.22 Type 2 diabetes mellitus with diabetic chronic kidney disease; E78.5 Hyperlipidemia, unspecified; F17.210 Nicotine dependence, cigarettes, uncomplicated; F41.9 Anxiety disorder, unspecified; I27.81 Cor pulmonale (chronic); I70.0 Atherosclerosis of aorta; M10.9 Gout, unspecified; M19.90 Unspecified osteoarthritis, unspecified site; M54.10 Radiculopathy, site unspecified; Y95 Nosocomial condition; Z20.822 Contact with and (suspected) exposure to COVID-19; Z79.4 Long term (current) use of insulin; Z82.49 Family history of ischemic heart disease and other diseases of the circulatory system; Z83.3 Family history of diabetes mellitus; Z86.16 Personal history of COVID-19; Z86.711 Personal history of pulmonary embolism; Z89.511 Acquired absence of right leg below knee; Z90.710 Acquired absence of both cervix and uterus; Z91.15 Patient's noncompliance with renal dialysis; Z99.2 Dependence on renal dialysis; E21.3 Hyperparathyroidism, unspecified
CPT/HCPCS: 36415; 71045; 80048; 80053; 80069; 82962; 83735; 84484; 85025; 85027; 85610; 85730; 86850; 86900; 86901; 87426; 93005; 96374; 96375; J0360; J1815; J2405; J3010; U0003; U0005; 99285-25; G0378

== ENCOUNTER 2020-12-16 23:11 | Inpatient (IN) | payer MEDICARE, OTHER ==
[~2020-12-16] VITALS: Ht 162.6 cm; Wt 64.7 kg
[2020-12-17] VITALS (10 sets, daily range): BP systolic 127–197; BP diastolic 66–92
--- NOTE | 2020-12-17 05:24 | ED.ADGEN ---
Past Medical History Past Medical History: Anxiety, Arthritis, Depression, Diabetes-Type II, Hypertension, Renal Failure, Other Additional Past Medical Histor: NEUROPATHY, PE, FIBROIDS Past Surgical History: , Hysterectomy, Other Additional Past Surgical Histo: kidney biopsy,dialysis cath R chest,UTERINE ABLATION;L ARM GRAFT,R BKA,TOE Smoking Status: Current Every Day Smoker Alcohol Use: None Drug Use: Marijuana General Adult EDM: Chief Complaint: LOWER EXT PAIN HPI: HPI: Patient is a 35 year old female coming in for complaints of pain in her right leg, buttocks, and nausea. Patient states she has not vomited. History of diabetes and end-stage renal disease and is not compliant with hemodialysis. Was just hospitalized in this facility and discharged 12/12/20 days ago. Patient's last dialysis was 4 days ago, missed her appointment and has been scheduled for today. Review of Systems: Review of Systems: All other systems within normal limits except for as noted in the HPI Current Medications: Current Medications Medications (Trade) Dose Ordered Sig/[employer] Start Time Stop Time Status Last Admin Dose Admin Acetaminophen/ Hydrocodone Bitart (Lortab 5/325) 1 tab 1X ONCE 12/17/20 05:30 12/17/20 05:31 DC 12/17/20 05:18 1 TAB Dextrose (Dextrose 50%-Water Syringe) 25 gm 1X ONCE 12/17/20 08:45 12/17/20 08:47 DC 12/17/20 08:59 25 GM Fentanyl Citrate (Fentanyl 2ml Vial) 75 mcg 1X ONCE 12/17/20 06:00 12/17/20 06:01 DC 12/17/20 06:40 75 MCG Insulin Human Regular (HumuLIN R VIAL) 10 unit 1X ONCE 12/17/20 08:45 12/17/20 08:47 DC 12/17/20 09:03 10 UNIT Morphine Sulfate (Morphine Sulfate) 4 mg PRN Q2HR PRN 12/17/20 09:15 12/18/20 09:14 Ondansetron HCl (Zofran) 4 mg 1X ONCE 12/17/20 06:00 12/17/20 06:01 DC 12/17/20 07:18 4 MG Sodium Bicarbonate (Sodium Bicarb Adult 8.4% Syr) 50 meq 1X ONCE 12/17/20 08:45 12/17/20 08:47 DC 12/17/20 08:56 50 MEQ Allergies: Allergies: Allergies Coded Allergies Type Severity Reaction Last Updated Verified No Known Drug Allergies 12/05/17 No Physical Exam: PE: Constitutional: Writhing in bed, screaming and moaning [] HENT: Normocephalic, atraumatic, bilateral external ears normal, nose normal. [] Eyes: PERRLA, conjunctiva normal, no discharge. [] Neck: No rigidity, supple, no stridor. [] Cardiovascular: Regular rate and rhythm, brisk cap refill [] Lungs & Thorax: Non labored symmetric respirations, no tachypnea or respiratory distress [] Abdomen: Soft, nondistended. Skin: Warm, dry, no erythema, no rash. Well-healing sacral wound, sites of previous amputations with intact incision sites with no signs of infection [] Back: Unremarkable Extremities: No deformities, range of motion grossly intact, no lower extremity edema, amputations of fingers 2 through 5, right BKA [] Neurologic: Alert and oriented X 3, no focal deficits noted. [] Psychologic: Patient yelling requesting pain meds frequently. [] Current Patient Data: Labs: Laboratory Tests Test 12/17/20 07:50 White Blood Count 8.3 x10^3/uL (4.0-11.0) Red Blood Count 2.59 x10^6/uL (3.50-5.40) L Hemoglobin 7.6 g/dL (12.0-15.5) L Hematocrit 23.0 % (36.0-47.0) L Mean Corpuscular Volume 89 fL (79-100) Mean Corpuscular Hemoglobin 29 pg (25-35) Mean Corpuscular Hemoglobin Concent 33 g/dL (31-37) Red Cell Distribution Width 16.9 % (11.5-14.5) H Platelet Count 264 x10^3/uL (140-400) Neutrophils (%) (Auto) 74 % (31-73) H Lymphocytes (%) (Auto) 12 % (24-48) L Monocytes (%) (Auto) 10 % (0-9) H Eosinophils (%) (Auto) 3 % (0-3) Basophils (%) (Auto) 1 % (0-3) Neutrophils # (Auto) 6.2 x10^3/uL (1.8-7.7) Lymphocytes # (Auto) 1.0 x10^3/uL (1.0-4.8) Monocytes # (Auto) 0.8 x10^3/uL (0.0-1.1) Eosinophils # (Auto) 0.2 x10^3/uL (0.0-0.7) Basophils # (Auto) 0.1 x10^3/uL (0.0-0.2) Prothrombin Time 19.4 SEC (11.7-14.0) H Prothrombin Time INR 1.7 (0.8-1.1) H Activated Partial Thromboplast Time 38 SEC (24-38) Sodium Level 134 mmol/L (136-145) L Potassium Level 8.6 mmol/L (3.5-5.1) *H Chloride Level 94 mmol/L (98-107) L Carbon Dioxide Level 23 mmol/L (21-32) Anion Gap 17 (6-14) H Blood Urea Nitrogen 90 mg/dL (7-20) H Creatinine 9.6 mg/dL (0.6-1.0) H Estimated GFR (Cockcroft-Gault) 5.6 BUN/Creatinine Ratio 9 (6-20) Glucose Level 75 mg/dL (70-99) Calcium Level 9.4 mg/dL (8.5-10.1) Phosphorus Level 10.9 mg/dL (2.6-4.7) H Magnesium Level 2.7 mg/dL (1.8-2.4) H Total Bilirubin 0.7 mg/dL (0.2-1.0) Aspartate Amino Transferase (AST) 35 U/L (15-37) Alanine Aminotransferase (ALT) 22 U/L (14-59) Alkaline Phosphatase 167 U/L (46-116) H Total Protein 8.6 g/dL (6.4-8.2) H Albumin 3.2 g/dL (3.4-5.0) L Albumin/Globulin Ratio 0.6 (1.0-1.7) L Laboratory Tests 12/17/20 07:50 Laboratory Tests 12/17/20 07:50 Vital Signs: Vital Signs Date Time Temp Pulse Resp B/P (MAP) Pulse Ox O2 Delivery O2 Flow Rate FiO2 12/17/20 09:06 67 24 128/77 (94) 99 Nasal Cannula 5.0 12/16/20 23:30 97.4 97.4 EKG: EKG: [] Heart Score: C/O Chest Pain: N/A Risk Factors: Risk Factors: DM, Current or recent (<one month) smoker, HTN, HLP, family history of CAD, obesity. Risk Scores: Score 0 - 3: 2.5% MACE over next 6 weeks - Discharge Home Score 4 - 6: 20.3% MACE over next 6 weeks - Admit for Clinical Observation Score 7 - 10: 72.7% MACE over next 6 weeks - Early Invasive Strategies Radiology/Procedures: Radiology/Procedures: [] Course & Med Decision Making: Course & Med Decision Making Patient given a dose of p.o. pain medicines but is still screaming for IV medications. Pending labs at shift change. Patient is a 35-year-old female with end-stage renal failure on hemodialysis. Patient is noncompliant with her dialysis, her last hemodialysis was 4 days ago. Patient potassium level today IS 8.6. I discussed the case with the human resource consultant on-call Dr. Bernstein who recommended to admit the patient to ICU so he can dialyze her ER urgently. I discussed the case with Dr. Matt hospitalist on-call who agrees to admit the patient. Critical care time was [45] minutes which includes time at bedside, spent in discussion of patient's care with specialist and/or family members, with interpretation of laboratory and/or radiological studies and is exclusive of procedures. Dragon Disclaimer: Dragon Disclaimer: This electronic medical record was generated, in whole or in part, using a voice recognition dictation system. Departure Departure Impression: Primary Impression: Hyperkalemia Additional Impressions: ESRD (end stage renal disease) on dialysis Anemia Disposition: ADMITTED INPATIENT Admitting Physician: [facility] (DR. MATT) Condition: STABLE Referrals: JASON MCCORD (PCP) Problem Qualifiers KYAW GUIDO MD Dec 17, 2020 05:24 SEBASTIÁN DAMIAN DO Dec 17, 2020 08:47
[2020-12-17] MEDS ORDERED: HYDROcodone/APAP 5/325MG 1 TAB TABLET PO ONE (05:30)
[2020-12-17] MEDS ORDERED: fentaNYL PF VIAL 100 MCG/2 ML VIAL IVP ONE (06:00)
[2020-12-17] MEDS ORDERED: ONDANSETRON PF 4 MG/2 ML VIAL. IVP ONE (06:00)
[2020-12-17] MEDS ORDERED: MORPHINE SULFATE 4 MG/ML INJ. IVP ONE (08:00)
[2020-12-17 08:08] LABS: BASO # 0.1 x10^3/uL (0.0-0.2); BASO % 1 % (0-3); EOS # 0.2 x10^3/uL (0.0-0.7); EOS % 3 % (0-3); HEMOGLOBIN 7.6 g/dL (12.0-15.5); LYMPH % 12 % (24-48); MEAN CORPUSCULAR HEMOGLOBIN 29 pg (25-35); MEAN CORPUSCULAR HGB CONC 33 g/dL (31-37); MEAN CORPUSCULAR VOLUME 89 fL (79-100); MONO # 0.8 x10^3/uL (0.0-1.1); MONO % 10 % (0-9); NEUT # 6.2 x10^3/uL (1.8-7.7); NEUT % 74 % (31-73); PLATELET COUNT 264 x10^3/uL (140-400); RED BLOOD COUNT 2.59 x10^6/uL (3.50-5.40); RED CELL DISTRIBUTION WIDTH 16.9 % (11.5-14.5); WHITE BLOOD COUNT 8.3 x10^3/uL (4.0-11.0)
--- NOTE | 2020-12-17 08:16 | RAD ---
EXAM: CHEST ONE VIEW. HISTORY: Shortness of breath. COMPARISON: 12/12/2020. FINDINGS: A frontal view of the chest is obtained. A small right pleural effusion appears slightly increased. Bilateral perihilar predominant interstiti al opacities are unchanged. There is no pneumothorax. The heart is moderately enlarged. There are marilynn gical clips in the left upper arm. IMPRESSION: 1. Slightly increased right pleural effusion. Stable diffuse interstitial infiltrates. Moderate cardi omegaly. Electronically signed by: Mary Hui MD (12/17/2020 8:13 AM) [id number]
[2020-12-17 08:22] LABS: PROTHROMBIN TIME PATIENT 19.4 SEC (11.7-14.0)
[2020-12-17 08:33] LABS: ALBUMIN 3.2 g/dL (3.4-5.0); ALBUMIN/GLOBULIN RATIO 0.6 (1.0-1.7); CALCIUM 9.4 mg/dL (8.5-10.1); CREATININE 9.6 mg/dL (0.6-1.0); GFR 5.6; MAGNESIUM 2.7 mg/dL (1.8-2.4); TOTAL BILIRUBIN 0.7 mg/dL (0.2-1.0); TOTAL PROTEIN 8.6 g/dL (6.4-8.2)
[2020-12-17 08:34] LABS: PHOSPHORUS 10.9 mg/dL (2.6-4.7)
[2020-12-17 08:37] LABS: POTASSIUM 8.6 mmol/L (3.5-5.1)
[2020-12-17] MEDS ORDERED: SODIUM BICARB ADULT 8.4% 50 MEQ/50 ML DISP.SYRIN. IV ONE (08:45)
[2020-12-17] MEDS ORDERED: INSULIN REGULAR 100 UNIT/ML 3ML VIAL. IV ONE (08:45)
[2020-12-17] MEDS ORDERED: DEXTROSE 50% 25 GM / 50ML DISP.SYRIN. IV ONE (08:45)
[2020-12-17] MEDS: MORPHINE SULFATE 4 MG/ML INJ. IVP PRN ×3 (10:35→20:22)
--- NOTE | 2020-12-17 11:19 | PDOC2 ---
CONSULT Date of Consult Date of Consult DATE: 12/17/20 TIME: 11:14 Reason for Consult Reason for Consult: SOB AND HIGH K Referring Physician Referring Physician: VERNELL Identification/Chief Complaint Chief Complaint SOB History of Present Illness Reason for Visit: THIS IS A 35 YR OLD WITH ESRD DUE TO HTN AND DM. HAS OP HD ON MWF. HAS NOT HAD HD ALL WEEK. ADMITTED WITH WHOLE BODY PAIN. HAS SEVERE PAD HX REQUIRING MULTIPLE DIGIT AMPUTATIONS. HAS SOME SOB WELL. LABS C/W ESRD WITH ANEMIA. HAS SEVERE LIFE THREATENING HYPERKALEMIA WITH K OF 8.6. SHE HAS A LEFT ARM BB AV LOOP GRAFT. Past Medical History Cardiovascular: CHF, HTN, Hyperlipidemia Pulmonary: Pulmonary embolus CENTRAL NERVOUS SYSTEM: Periperal neuropathy, Seizure Heme/Onc: Anemia NOS Psych: Anxiety, Depression Rheumatologic: Gout Renal/: Chronic renal failure Endocrine: Diabetes, Hyperparathyroidism Past Surgical History Past Surgical History LEFT ARM AVG, HX OF RIGHT IJ TDC. HX OF AMP LEFT HAND 2-5 FINGERS Past Surgical History: Hysterectomy, Other Family History Family History: Diabetes, Hypertension, Kidney Disease Social History ALCOHOL: none Drugs: Marijuana Lives: with Family Current Problem List Problem List Problems Medical Problems: (1) Anemia Status: Acute Current Medications Current Medications Current Medications Acetaminophen/ Hydrocodone Bitart (Lortab 5/325) 1 tab 1X ONCE PO Last administered on 12/17/20at 05:18; Start 12/17/20 at 05:30; Stop 12/17/20 at 05:31; Status DC Fentanyl Citrate (Fentanyl 2ml Vial) 75 mcg 1X ONCE IVP Last administered on 12/17/20at 06:40; Start 12/17/20 at 06:00; Stop 12/17/20 at 06:01; Status DC Ondansetron HCl (Zofran) 4 mg 1X ONCE IVP Last administered on 12/17/20at 07:18; Start 12/17/20 at 06:00; Stop 12/17/20 at 06:01; Status DC Morphine Sulfate (Morphine Sulfate) 4 mg 1X ONCE IVP Last administered on 12/17/20at 08:08; Start 12/17/20 at 08:00; Stop 12/17/20 at 08:01; Status DC Sodium Bicarbonate (Sodium Bicarb Adult 8.4% Syr) 50 meq 1X ONCE IV Last administered on 12/17/20at 08:56; Start 12/17/20 at 08:45; Stop 12/17/20 at 08:47; Status DC Dextrose (Dextrose 50%-Water Syringe) 25 gm 1X ONCE IV Last administered on 12/17/20at 08:59; Start 12/17/20 at 08:45; Stop 12/17/20 at 08:47; Status DC Insulin Human Regular (HumuLIN R VIAL) 10 unit 1X ONCE IV Last administered on 12/17/20at 09:03; Start 12/17/20 at 08:45; Stop 12/17/20 at 08:47; Status DC Morphine Sulfate (Morphine Sulfate) 4 mg PRN Q2HR PRN IVP PAIN Last administered on 12/17/20at 10:35; Start 12/17/20 at 09:15; Stop 12/18/20 at 09:14 Active Scripts Active Percocet 5-325 Mg Tablet (Oxycodone/Acetaminophen) 1 Each Tablet 1 Tab PO QIDPRN PRN MDD 4 Tablet(s) 3 Days Gabapentin 300 Mg Capsule 300 Mg PO DAILY08 30 Days Ondansetron Odt (Ondansetron) 4 Mg Tab.rapdis 4 Mg PO PRN Q6HRS PRN 14 Days Bisacodyl 10 Mg Supp.rect 10 Mg RI PRN DAILY PRN 14 Days Keppra (Levetiracetam) 250 Mg Tablet 375 Mg PO BID 30 Days Hydralazine Hcl 50 Mg Tablet 75 Mg PO BID 30 Days Proair Hfa (Albuterol Sulfate) 8.5 Gm Hfa.aer.ad 2.5 Mg NEB PRN Q4HRS PRN 14 Days Amitiza (Lubiprostone) 24 Mcg Capsule 24 Mcg PO BIDWMEALS 30 Days Reported Warfarin Sodium 4 Mg Tablet 4 Mg PO DAILY Novolog (Insulin Aspart) 100 Unit/1 Ml Vial 0-12 Unit SQ TIDAC NICODERM CQ 14mg (Nicotine) 1 Each Patch.td24 1 Patch TP DAILY Acetaminophen 500 Mg Tablet 1,000 Mg PO TID A and D Ointment (Vits A and D/White Pet/Lanolin) 42.5 Gm Oint...g. 42.5 Gm TP BID Renvela (Sevelamer Carbonate) 800 Mg Tablet 1 Tab PO TID 30 Days Wendy-Marvin Tablet (Folic Acid/Vitamin B Comp W-C) 0.8 Mg Tablet 1 Tab PO DAILY 30 Days Protonix (Pantoprazole Sodium) 20 Mg Tablet.dr 2 Tab PO DAILY Carvedilol 25 Mg Tablet 25 Mg PO BIDWMEALS Aspirin 81 Mg Tab.chew 1 Tab PO DAILY Amlodipine Besylate 10 Mg Tablet 10 Mg PO DAILY Allergies Allergies: Coded Allergies: No Known Drug Allergies (Unverified , 12/05/17) ROS General: YES: Fatigue, Malaise, Appetite PSYCHOLOGICAL ROS: YES: Anxiety, Depression Eyes: Yes Decreased vision HEENT: YES: Heacaches Respiratory: YES: Cough, Orthopnea Cardiovascular: yes Orthopnea Gastrointestinal: Yes Nausea, Yes Constipation Genitourinary: YES Other (ANURIA) Musculoskeletal: Yes Joint Pain, Yes Joint Stiffness, Yes Muscular Weakness Neurological: Yes Weakness Skin: Yes Dry Skin, Yes Skin Lesion Changes Physical Exam General: Alert, Oriented X3, mild distress HEENT: Atraumatic, PERRLA Lungs: Clear to auscultation Heart: Regular rate, Other (+[id number]) Abdomen: Normal bowel sounds Extremities: No clubbing Skin: No breakdown Neuro: Normal speech Psych/Mental Status: Mental status NL, Mood NL MUSCULOSKELETAL: No joint tenderness, No swelling Vitals VITALS Vital Signs Date Time Temp Pulse Resp B/P (MAP) Pulse Ox O2 Delivery O2 Flow Rate FiO2 12/17/20 10:35 97 5.0 12/17/20 10:09 70 24 124/58 (80) Nasal Cannula 12/16/20 23:30 97.4 97.4 Labs Labs Laboratory Tests Test 12/17/20 07:50 12/17/20 09:10 White Blood Count 8.3 x10^3/uL (4.0-11.0) Red Blood Count 2.59 x10^6/uL (3.50-5.40) Hemoglobin 7.6 g/dL (12.0-15.5) Hematocrit 23.0 % (36.0-47.0) Mean Corpuscular Volume 89 fL (79-100) Mean Corpuscular Hemoglobin 29 pg (25-35) Mean Corpuscular Hemoglobin Concent 33 g/dL (31-37) Red Cell Distribution Width 16.9 % (11.5-14.5) Platelet Count 264 x10^3/uL (140-400) Neutrophils (%) (Auto) 74 % (31-73) Lymphocytes (%) (Auto) 12 % (24-48) Monocytes (%) (Auto) 10 % (0-9) Eosinophils (%) (Auto) 3 % (0-3) Basophils (%) (Auto) 1 % (0-3) Neutrophils # (Auto) 6.2 x10^3/uL (1.8-7.7) Lymphocytes # (Auto) 1.0 x10^3/uL (1.0-4.8) Monocytes # (Auto) 0.8 x10^3/uL (0.0-1.1) Eosinophils # (Auto) 0.2 x10^3/uL (0.0-0.7) Basophils # (Auto) 0.1 x10^3/uL (0.0-0.2) Prothrombin Time 19.4 SEC (11.7-14.0) Prothromb Time International Ratio 1.7 (0.8-1.1) Activated Partial Thromboplast Time 38 SEC (24-38) Sodium Level 134 mmol/L (136-145) Potassium Level 8.6 mmol/L (3.5-5.1) Chloride Level 94 mmol/L (98-107) Carbon Dioxide Level 23 mmol/L (21-32) Anion Gap 17 (6-14) Blood Urea Nitrogen 90 mg/dL (7-20) Creatinine 9.6 mg/dL (0.6-1.0) Estimated GFR (Cockcroft-Gault) 5.6 BUN/Creatinine Ratio 9 (6-20) Glucose Level 75 mg/dL (70-99) Calcium Level 9.4 mg/dL (8.5-10.1) Phosphorus Level 10.9 mg/dL (2.6-4.7) Magnesium Level 2.7 mg/dL (1.8-2.4) Total Bilirubin 0.7 mg/dL (0.2-1.0) Aspartate Amino Transf (AST/SGOT) 35 U/L (15-37) Alanine Aminotransferase (ALT/SGPT) 22 U/L (14-59) Alkaline Phosphatase 167 U/L (46-116) Total Protein 8.6 g/dL (6.4-8.2) Albumin 3.2 g/dL (3.4-5.0) Albumin/Globulin Ratio 0.6 (1.0-1.7) SARS-CoV-2 Antigen (Rapid) Negative (NEGATIVE) Laboratory Tests Test 12/17/20 07:50 12/17/20 09:10 White Blood Count 8.3 x10^3/uL (4.0-11.0) Red Blood Count 2.59 x10^6/uL (3.50-5.40) Hemoglobin 7.6 g/dL (12.0-15.5) Hematocrit 23.0 % (36.0-47.0) Mean Corpuscular Volume 89 fL (79-100) Mean Corpuscular Hemoglobin 29 pg (25-35) Mean Corpuscular Hemoglobin Concent 33 g/dL (31-37) Red Cell Distribution Width 16.9 % (11.5-14.5) Platelet Count 264 x10^3/uL (140-400) Neutrophils (%) (Auto) 74 % (31-73) Lymphocytes (%) (Auto) 12 % (24-48) Monocytes (%) (Auto) 10 % (0-9) Eosinophils (%) (Auto) 3 % (0-3) Basophils (%) (Auto) 1 % (0-3) Neutrophils # (Auto) 6.2 x10^3/uL (1.8-7.7) Lymphocytes # (Auto) 1.0 x10^3/uL (1.0-4.8) Monocytes # (Auto) 0.8 x10^3/uL (0.0-1.1) Eosinophils # (Auto) 0.2 x10^3/uL (0.0-0.7) Basophils # (Auto) 0.1 x10^3/uL (0.0-0.2) Prothrombin Time 19.4 SEC (11.7-14.0) Prothromb Time International Ratio 1.7 (0.8-1.1) Activated Partial Thromboplast Time 38 SEC (24-38) Sodium Level 134 mmol/L (136-145) Potassium Level 8.6 mmol/L (3.5-5.1) Chloride Level 94 mmol/L (98-107) Carbon Dioxide Level 23 mmol/L (21-32) Anion Gap 17 (6-14) Blood Urea Nitrogen 90 mg/dL (7-20) Creatinine 9.6 mg/dL (0.6-1.0) Estimated GFR (Cockcroft-Gault) 5.6 BUN/Creatinine Ratio 9 (6-20) Glucose Level 75 mg/dL (70-99) Calcium Level 9.4 mg/dL (8.5-10.1) Phosphorus Level 10.9 mg/dL (2.6-4.7) Magnesium Level 2.7 mg/dL (1.8-2.4) Total Bilirubin 0.7 mg/dL (0.2-1.0) Aspartate Amino Transf (AST/SGOT) 35 U/L (15-37) Alanine Aminotransferase (ALT/SGPT) 22 U/L (14-59) Alkaline Phosphatase 167 U/L (46-116) Total Protein 8.6 g/dL (6.4-8.2) Albumin 3.2 g/dL (3.4-5.0) Albumin/Globulin Ratio 0.6 (1.0-1.7) SARS-CoV-2 Antigen (Rapid) Negative (NEGATIVE) Images Images EXAM: CHEST ONE VIEW. HISTORY: Shortness of breath. COMPARISON: 12/12/2020. FINDINGS: A frontal view of the chest is obtained. A small right pleural effusion appears slightly increased. Bilateral perihilar predominant interstitial opacities are unchanged. There is no pneumothorax. The heart is moderately enlarged. There are surgical clips in the left upper arm. IMPRESSION: 1. Slightly increased right pleural effusion. Stable diffuse interstitial infiltrates. Moderate cardiomegaly. Electronically signed by: Mary Hui MD (12/17/2020 8:13 AM) [id number] Assessment/Plan Assessment/Plan IMP LIFE THREATENING HYPERKALEMIA ANEMIA DM HTN [id number] ARM AVG NON COMPLIANCE PLAN EMERGENT HD TODAY 1K FOR ONE HR FOLLOWED BY LABS AND THE PROTOCOL DIRECTED START SHANAE ENC COMPLIANCE WILL FOLLOW ERVIN MARTINEZ MD Dec 17, 2020 11:19
[2020-12-17] MEDS ORDERED: DIALYSIS PATIENT. MC PRN (12:00)
[2020-12-17] MEDS ORDERED: IV NORMAL SALINE 1000ML BAG 1,000 ML IV PRN ×2 (12:00)
--- NOTE | 2020-12-17 15:18 | PDOC1 ---
History and Physical Date of Admission Date of Admission DATE: 12/17/20 TIME: 15:12 Source Source: Chart review, Patient History of Present Illness History of Present Illness Deborah is a 35 year old female admit for pain, she has complaints of pain in her right leg, buttocks, and nausea. She also had shortness of breath this AM, but reports that is better after getting IV morphine. Patient states she has not vomited. History of diabetes and end-stage renal disease and is not compliant with hemodialysis. Was just hospitalized in this facility and discharged 12/12/20 days ago. I had seen her a lot this year in Subacute rehab, weakness, unale to care for herself, chronic pain,. she had missed dialysis Past Medical History Cardiovascular: CHF, HTN, Hyperlipidemia Pulmonary: Pulmonary embolus CENTRAL NERVOUS SYSTEM: Periperal neuropathy, Seizure Heme/Onc: Anemia NOS Psych: Anxiety, Depression Rheumatologic: Gout Renal/: Chronic renal failure Endocrine: Diabetes, Hyperparathyroidism Past Surgical History Past Surgical History: Hysterectomy, Other Family History Family History: Diabetes, Hypertension, Kidney Disease Social History Smoke: No ALCOHOL: none Drugs: Marijuana Current Problem List Problem List Problems Medical Problems: (1) Anemia Status: Acute Current Medications Current Medications Current Medications Acetaminophen/ Hydrocodone Bitart (Lortab 5/325) 1 tab 1X ONCE PO Last administered on 12/17/20at 05:18; Start 12/17/20 at 05:30; Stop 12/17/20 at 05:31; Status DC Fentanyl Citrate (Fentanyl 2ml Vial) 75 mcg 1X ONCE IVP Last administered on 12/17/20at 06:40; Start 12/17/20 at 06:00; Stop 12/17/20 at 06:01; Status DC Ondansetron HCl (Zofran) 4 mg 1X ONCE IVP Last administered on 12/17/20at 07:18; Start 12/17/20 at 06:00; Stop 12/17/20 at 06:01; Status DC Morphine Sulfate (Morphine Sulfate) 4 mg 1X ONCE IVP Last administered on 12/17/20at 08:08; Start 12/17/20 at 08:00; Stop 12/17/20 at 08:01; Status DC Sodium Bicarbonate (Sodium Bicarb Adult 8.4% Syr) 50 meq 1X ONCE IV Last administered on 12/17/20at 08:56; Start 12/17/20 at 08:45; Stop 12/17/20 at 08:47; Status DC Dextrose (Dextrose 50%-Water Syringe) 25 gm 1X ONCE IV Last administered on 12/17/20at 08:59; Start 12/17/20 at 08:45; Stop 12/17/20 at 08:47; Status DC Insulin Human Regular (HumuLIN R VIAL) 10 unit 1X ONCE IV Last administered on 12/17/20at 09:03; Start 12/17/20 at 08:45; Stop 12/17/20 at 08:47; Status DC Morphine Sulfate (Morphine Sulfate) 4 mg PRN Q2HR PRN IVP PAIN Last administered on 12/17/20at 10:35; Start 12/17/20 at 09:15; Stop 12/18/20 at 09:14 Epoetin Fredrick-epbx (RETACRIT for ESRD PTS) 20,000 unit MoWeFr@2100 SQ ; Start 12/17/20 at 21:00 Sodium Chloride 1,000 ml @ 1,000 mls/hr Q1H PRN IV hypotension; Start 12/17/20 at 12:00; Stop 12/17/20 at 17:59 Sodium Chloride 1,000 ml @ 400 mls/hr Q2H30M PRN IV PATENCY; Start 12/17/20 at 12:00; Stop 12/17/20 at 23:59 Info (PHARMACY MONITORING -- do not chart) 1 each PRN DAILY PRN MC SEE COMMENTS; Start 12/17/20 at 12:00 Active Scripts Active Percocet 5-325 Mg Tablet (Oxycodone/Acetaminophen) 1 Each Tablet 1 Tab PO QIDPRN PRN MDD 4 Tablet(s) 3 Days Gabapentin 300 Mg Capsule 300 Mg PO DAILY08 30 Days Ondansetron Odt (Ondansetron) 4 Mg Tab.rapdis 4 Mg PO PRN Q6HRS PRN 14 Days Bisacodyl 10 Mg Supp.rect 10 Mg SD PRN DAILY PRN 14 Days Keppra (Levetiracetam) 250 Mg Tablet 375 Mg PO BID 30 Days Hydralazine Hcl 50 Mg Tablet 75 Mg PO BID 30 Days Proair Hfa (Albuterol Sulfate) 8.5 Gm Hfa.aer.ad 2.5 Mg NEB PRN Q4HRS PRN 14 Days Amitiza (Lubiprostone) 24 Mcg Capsule 24 Mcg PO BIDWMEALS 30 Days Reported Warfarin Sodium 4 Mg Tablet 4 Mg PO DAILY Novolog (Insulin Aspart) 100 Unit/1 Ml Vial 0-12 Unit SQ TIDAC NICODERM CQ 14mg (Nicotine) 1 Each Patch.td24 1 Patch TP DAILY Acetaminophen 500 Mg Tablet 1,000 Mg PO TID A and D Ointment (Vits A and D/White Pet/Lanolin) 42.5 Gm Oint...g. 42.5 Gm TP BID Renvela (Sevelamer Carbonate) 800 Mg Tablet 1 Tab PO TID 30 Days Wendy-Marvin Tablet (Folic Acid/Vitamin B Comp W-C) 0.8 Mg Tablet 1 Tab PO DAILY 30 Days Protonix (Pantoprazole Sodium) 20 Mg Tablet.dr 2 Tab PO DAILY Carvedilol 25 Mg Tablet 25 Mg PO BIDWMEALS Aspirin 81 Mg Tab.chew 1 Tab PO DAILY Amlodipine Besylate 10 Mg Tablet 10 Mg PO DAILY Allergies Allergies: Coded Allergies: No Known Drug Allergies (Unverified , 12/05/17) ROS General: YES: Chills; No: Night Sweats, Fatigue, Malaise, Appetite, Other PSYCHOLOGICAL ROS: YES: Anxiety, Irritablity, Memory difficulties, Sleep distu rbances; No: Concentration difficultie, Decreased libido, Depression, Disorientation, Hallucinations, Hostility, Mood Swings, Obsessive thoughts, Physical abuse, Sexual abuse, Suicidal ideation, Other Eyes: No Blurry vision, No Decreased vision, No Double vision, No Dry eyes, No Excessive tearing, No Eye Pain, No Itchy Eyes, No Loss of vision, No P hotophobia, No Scotomata, No Uses contacts, No Uses glasses, No Other HEENT: No: Heacaches, Visual Changes, Hearing change, Nasal congestion, Nasal discharge, Oral lesions, Sinus pain, Sore Throat, Epistaxis, Sneezing, Snoring, Tinnitus, Vertigo, Vocal changes, Other Respiratory: No: Cough, Hemoptysis, Orthopnea, Pleuritic Pain, Shortness of breath, SOB with excertion, Sputum Changes, Stridor, Tachypnea, Wheezing, Other Cardiovascular: yes Chest Pain; No Palpitations, No Orthopnea, No Paroxysmal Noc. Dyspnea, No Edema, No Lt Headedness, No Other Gastrointestinal: Yes Nausea, Yes Abdominal Pain; No Vomiting, No Diarrhea, No Constipation, No Melena, No Hematochezia, No Other Genitourinary: No Dysuria, No Frequency, No Incontinence, No Hematuria, No Retention, No Discharge, No Urgency, No Pain, No Flank Pain, No Other, No , No , No , No , No , No , No Musculoskeletal: Yes Gait Disturbance, Yes Joint Pain Neurological: No Behavorial Changes, No Bowel/Bladder ControlChng, No Confusion, No Dizziness, No Gait Disturbance, No Headaches, No Impaired Coord/balance, No Memory Loss, No Numbness/Tingling, No Seizures, No Speech Problems, No Tremors, No Visual Changes, No Weakness, No Other Skin: Yes Dry Skin; No Eczema, No Hair Changes, No Lumps, No Mole Changes, No Mottling, No Nail Changes, No Pruritus, No Rash, No Skin Lesion Changes, No Other, No Acne Physical Exam General: Cooperative, moderate distress HEENT: PERRLA, EOMI Lungs: Other Heart: S1S2, no murmurs Abdomen: Soft Extremities: Normal pulses, Other Skin: No rashes Neuro: Normal tone, Sensation intact, Other Psych/Mental Status: Other (upset, emotional, complains of pain) Vitals Vitals Vital Signs Date Time Temp Pulse Resp B/P (MAP) Pulse Ox O2 Delivery O2 Flow Rate FiO2 12/17/20 14:00 60 23 147/68 (94) 100 Nasal Cannula 5.0 12/17/20 10:30 98.3 98.3 Labs Labs Laboratory Tests Test 12/17/20 07:50 12/17/20 09:10 12/17/20 14:00 12/17/20 14:35 White Blood Count 8.3 x10^3/uL (4.0-11.0) Red Blood Count 2.59 x10^6/uL (3.50-5.40) Hemoglobin 7.6 g/dL (12.0-15.5) Hematocrit 23.0 % (36.0-47.0) Mean Corpuscular Volume 89 fL (79-100) Mean Corpuscular Hemoglobin 29 pg (25-35) Mean Corpuscular Hemoglobin Concent 33 g/dL (31-37) Red Cell Distribution Width 16.9 % (11.5-14.5) Platelet Count 264 x10^3/uL (140-400) Neutrophils (%) (Auto) 74 % (31-73) Lymphocytes (%) (Auto) 12 % (24-48) Monocytes (%) (Auto) 10 % (0-9) Eosinophils (%) (Auto) 3 % (0-3) Basophils (%) (Auto) 1 % (0-3) Neutrophils # (Auto) 6.2 x10^3/uL (1.8-7.7) Lymphocytes # (Auto) 1.0 x10^3/uL (1.0-4.8) Monocytes # (Auto) 0.8 x10^3/uL (0.0-1.1) Eosinophils # (Auto) 0.2 x10^3/uL (0.0-0.7) Basophils # (Auto) 0.1 x10^3/uL (0.0-0.2) Prothrombin Time 19.4 SEC (11.7-14.0) Prothromb Time International Ratio 1.7 (0.8-1.1) Activated Partial Thromboplast Time 38 SEC (24-38) Sodium Level 134 mmol/L (136-145) Potassium Level 8.6 mmol/L (3.5-5.1) 4.0 mmol/L (3.5-5.1) 4.4 mmol/L (3.5-5.1) Chloride Level 94 mmol/L (98-107) Carbon Dioxide Level 23 mmol/L (21-32) Anion Gap 17 (6-14) Blood Urea Nitrogen 90 mg/dL (7-20) Creatinine 9.6 mg/dL (0.6-1.0) Estimated GFR (Cockcroft-Gault) 5.6 BUN/Creatinine Ratio 9 (6-20) Glucose Level 75 mg/dL (70-99) Calcium Level 9.4 mg/dL (8.5-10.1) Phosphorus Level 10.9 mg/dL (2.6-4.7) Magnesium Level 2.7 mg/dL (1.8-2.4) Total Bilirubin 0.7 mg/dL (0.2-1.0) Aspartate Amino Transf (AST/SGOT) 35 U/L (15-37) Alanine Aminotransferase (ALT/SGPT) 22 U/L (14-59) Alkaline Phosphatase 167 U/L (46-116) Total Protein 8.6 g/dL (6.4-8.2) Albumin 3.2 g/dL (3.4-5.0) Albumin/Globulin Ratio 0.6 (1.0-1.7) SARS-CoV-2 RNA (RUBA) Negative (Negative) SARS-CoV-2 Antigen (Rapid) Negative (NEGATIVE) Laboratory Tests Test 12/17/20 07:50 12/17/20 09:10 12/17/20 14:00 12/17/20 14:35 White Blood Count 8.3 x10^3/uL (4.0-11.0) Red Blood Count 2.59 x10^6/uL (3.50-5.40) Hemoglobin 7.6 g/dL (12.0-15.5) Hematocrit 23.0 % (36.0-47.0) Mean Corpuscular Volume 89 fL (79-100) Mean Corpuscular Hemoglobin 29 pg (25-35) Mean Corpuscular Hemoglobin Concent 33 g/dL (31-37) Red Cell Distribution Width 16.9 % (11.5-14.5) Platelet Count 264 x10^3/uL (140-400) Neutrophils (%) (Auto) 74 % (31-73) Lymphocytes (%) (Auto) 12 % (24-48) Monocytes (%) (Auto) 10 % (0-9) Eosinophils (%) (Auto) 3 % (0-3) Basophils (%) (Auto) 1 % (0-3) Neutrophils # (Auto) 6.2 x10^3/uL (1.8-7.7) Lymphocytes # (Auto) 1.0 x10^3/uL (1.0-4.8) Monocytes # (Auto) 0.8 x10^3/uL (0.0-1.1) Eosinophils # (Auto) 0.2 x10^3/uL (0.0-0.7) Basophils # (Auto) 0.1 x10^3/uL (0.0-0.2) Prothrombin Time 19.4 SEC (11.7-14.0) Prothromb Time International Ratio 1.7 (0.8-1.1) Activated Partial Thromboplast Time 38 SEC (24-38) Sodium Level 134 mmol/L (136-145) Potassium Level 8.6 mmol/L (3.5-5.1) 4.0 mmol/L (3.5-5.1) 4.4 mmol/L (3.5-5.1) Chloride Level 94 mmol/L (98-107) Carbon Dioxide Level 23 mmol/L (21-32) Anion Gap 17 (6-14) Blood Urea Nitrogen 90 mg/dL (7-20) Creatinine 9.6 mg/dL (0.6-1.0) Estimated GFR (Cockcroft-Gault) 5.6 BUN/Creatinine Ratio 9 (6-20) Glucose Level 75 mg/dL (70-99) Calcium Level 9.4 mg/dL (8.5-10.1) Phosphorus Level 10.9 mg/dL (2.6-4.7) Magnesium Level 2.7 mg/dL (1.8-2.4) Total Bilirubin 0.7 mg/dL (0.2-1.0) Aspartate Amino Transf (AST/SGOT) 35 U/L (15-37) Alanine Aminotransferase (ALT/SGPT) 22 U/L (14-59) Alkaline Phosphatase 167 U/L (46-116) Total Protein 8.6 g/dL (6.4-8.2) Albumin 3.2 g/dL (3.4-5.0) Albumin/Globulin Ratio 0.6 (1.0-1.7) SARS-CoV-2 RNA (RUBA) Negative (Negative) SARS-CoV-2 Antigen (Rapid) Negative (NEGATIVE) VTE Prophylaxis Ordered VTE Prophylaxis Devices: Yes VTE Pharmacological Prophylaxi: Yes Assessment/Plan Assessment/Plan acute diastolic CHF, fluid overload, missed HD ESRD, on HD, noncompliance, foot back pain, OA, weakness critical hyperkalemia, HD todya acute on chronic pain disorder, PVD< mult prior amputations ankemia oF CKF Dm1 Justifications for Admission Other Justification Hyperkalemia, ESRD on HD, symptomatic anemia ANTONINO MATT MD Dec 17, 2020 15:17
[2020-12-17] MEDS ORDERED: ONDANSETRON ODT 4 MG TAB.RAPDIS. PO PRN (15:30)
[2020-12-17] MEDS ORDERED: ALBUTEROL SULFATE 2.5 MG/3 ML NEBU. NEB PRN (15:30)
[2020-12-17] MEDS ORDERED: BISACODYL 10 MG SUPP.RECT. PR PRN (15:30)
[2020-12-17] MEDS ORDERED: hydrALAZINE 20 MG/ML VIAL. IVP PRN (16:30)
[2020-12-17] MEDS: WARFARIN 4 MG TABLET. PO SCH (16:41)
[2020-12-17] MEDS: LUBIPROSTONE 24 MCG CAPSULE PO SCH (16:41)
[2020-12-17] MEDS: SEVELAMER CARBONATE 800 MG TABLET. PO SCH (16:42)
[2020-12-17] MEDS: oxyCODONE/APAP 5/325 1 TAB TABLET PO PRN (18:33)
[2020-12-17] MEDS: EPOETIN ALFA-EPBX for ESRD 20,000 UNIT/ML VIAL. SQ SCH ×2 (21:00→21:52)
[2020-12-17] MEDS: levETIRAcetam 500 MG/5 ML ORAL SOLUTION. PO SCH (21:52)
[2020-12-17] MEDS: ACETAMINOPHEN 500 MG TABLET PO SCH (21:53)
[2020-12-17] MEDS: diphenhydrAMINE HCL 25 MG CAPSULE PO PRN (22:26)
[2020-12-18] VITALS (7 sets, daily range): BP systolic 126–146; BP diastolic 59–84
[2020-12-18] MEDS: MORPHINE SULFATE 4 MG/ML INJ. IVP PRN (00:36)
[2020-12-18] MEDS: oxyCODONE/APAP 5/325 1 TAB TABLET PO PRN ×3 (04:05→18:11)
[2020-12-18 05:39] LABS: BASO # 0.1 x10^3/uL (0.0-0.2); BASO % 1 % (0-3); EOS # 0.6 x10^3/uL (0.0-0.7); EOS % 10 % (0-3); HEMATOCRIT 23.6 % (36.0-47.0); HEMOGLOBIN 7.7 g/dL (12.0-15.5); LYMPH # 0.3 x10^3/uL (1.0-4.8); LYMPH % 5 % (24-48); MEAN CORPUSCULAR HEMOGLOBIN 29 pg (25-35); MEAN CORPUSCULAR HGB CONC 33 g/dL (31-37); MEAN CORPUSCULAR VOLUME 90 fL (79-100); MONO # 0.6 x10^3/uL (0.0-1.1); MONO % 8 % (0-9); NEUT % 76 % (31-73); PLATELET COUNT 268 x10^3/uL (140-400); RED BLOOD COUNT 2.64 x10^6/uL (3.50-5.40); WHITE BLOOD COUNT 6.6 x10^3/uL (4.0-11.0)
[2020-12-18 05:45] LABS: PROTHROMBIN TIME PATIENT 18.6 SEC (11.7-14.0)
[2020-12-18 06:00] LABS: ALBUMIN 2.4 g/dL (3.4-5.0); ALBUMIN/GLOBULIN RATIO 0.5 (1.0-1.7); CALCIUM 8.4 mg/dL (8.5-10.1); CREATININE 6.2 mg/dL (0.6-1.0); GFR 9.3; TOTAL BILIRUBIN 0.5 mg/dL (0.2-1.0)
[2020-12-18 06:10] LABS: POTASSIUM 6.5 mmol/L (3.5-5.1)
[2020-12-18] MEDS ORDERED: SODIUM POLYSTYRENE SULFON/SORB 15 GM/60 ML ORAL.SUSP. PO ONE (07:00)
[2020-12-18] MEDS ORDERED: IV NORMAL SALINE 1000ML BAG 1,000 ML IV PRN ×2 (08:00)
[2020-12-18] MEDS: LUBIPROSTONE 24 MCG CAPSULE PO SCH ×2 (08:00→14:35)
[2020-12-18] MEDS ORDERED: DIALYSIS PATIENT. MC PRN (08:00)
[2020-12-18] MEDS: SEVELAMER CARBONATE 800 MG TABLET. PO SCH ×3 (08:00→18:11)
[2020-12-18] MEDS: ASPIRIN CHEWABLE 81 MG TABLET. PO SCH (08:16)
[2020-12-18] MEDS: GABAPENTIN 300 MG CAPSULE. PO SCH (08:16)
[2020-12-18] MEDS: diphenhydrAMINE HCL 25 MG CAPSULE PO PRN ×2 (08:17→20:12)
[2020-12-18] MEDS ORDERED: LIDOCAINE 1% PF 2 ML VIAL. ID STA (08:34)
[2020-12-18] MEDS: ACETAMINOPHEN 500 MG TABLET PO SCH ×3 (09:00→20:12)
[2020-12-18] MEDS: levETIRAcetam 500 MG/5 ML ORAL SOLUTION. PO SCH ×3 (09:00→20:12)
[2020-12-18] MEDS: FOLIC/VIT B COMP W-C (RENAL) TABLET. PO SCH ×2 (09:00→14:37)
--- NOTE | 2020-12-18 09:09 | PDOC ---
[employer] PROGRESS NOTE Date of Service DOS: DATE: 12/18/20 TIME: 09:06 Chief Complaint Chief Complaint acute diastolic CHF, fluid overload, missed HD ESRD, on HD, noncompliance, foot back pain, OA, weakness critical hyperkalemia, HD done and labs better, acute on chronic pain disorder, narcotic dependence, PVD< mult prior amputations anemia, chronic on CKD, poor compliance weakness and debility acquired coagulation disorder, mult prior clots, on coumadin, goal 2-3 History of Present Illness History of Present Illness pain better, feeds better, no event to HD today, try to rehab Vitals/I&O Vitals/I&O: Vital Signs Date Time Temp Pulse Resp B/P (MAP) Pulse Ox O2 Delivery O2 Flow Rate FiO2 12/18/20 04:35 16 100 12/18/20 04:00 98.0 74 130/66 (87) Nasal Cannula 6.0 98.0 I & O 12/17/20 12/17/20 12/18/20 15:00 23:00 07:00 Intake Total 380 ml 240 ml Output Total 0 ml Balance 380 ml 240 ml Physical Exam General: Cooperative, moderate distress Heart: Regular rate, Other (+S47) Lungs: Clear Abdomen: Soft Extremities: Normal pulses, Other Skin: No rashes Labs Labs: Laboratory Tests Test 12/17/20 09:10 12/17/20 14:00 12/17/20 14:35 12/18/20 05:00 SARS-CoV-2 RNA (RUBA) Negative (Negative) SARS-CoV-2 Antigen (Rapid) Negative (NEGATIVE) Potassium Level 4.0 mmol/L (3.5-5.1) 4.4 mmol/L (3.5-5.1) 6.5 mmol/L (3.5-5.1) White Blood Count 6.6 x10^3/uL (4.0-11.0) Red Blood Count 2.64 x10^6/uL (3.50-5.40) Hemoglobin 7.7 g/dL (12.0-15.5) Hematocrit 23.6 % (36.0-47.0) Mean Corpuscular Volume 90 fL (79-100) Mean Corpuscular Hemoglobin 29 pg (25-35) Mean Corpuscular Hemoglobin Concent 33 g/dL (31-37) Red Cell Distribution Width 17.0 % (11.5-14.5) Platelet Count 268 x10^3/uL (140-400) Neutrophils (%) (Auto) 76 % (31-73) Lymphocytes (%) (Auto) 5 % (24-48) Monocytes (%) (Auto) 8 % (0-9) Eosinophils (%) (Auto) 10 % (0-3) Basophils (%) (Auto) 1 % (0-3) Neutrophils # (Auto) 5.0 x10^3/uL (1.8-7.7) Lymphocytes # (Auto) 0.3 x10^3/uL (1.0-4.8) Monocytes # (Auto) 0.6 x10^3/uL (0.0-1.1) Eosinophils # (Auto) 0.6 x10^3/uL (0.0-0.7) Basophils # (Auto) 0.1 x10^3/uL (0.0-0.2) Prothrombin Time 18.6 SEC (11.7-14.0) Prothromb Time International Ratio 1.6 (0.8-1.1) Sodium Level 137 mmol/L (136-145) Chloride Level 97 mmol/L (98-107) Carbon Dioxide Level 29 mmol/L (21-32) Anion Gap 11 (6-14) Blood Urea Nitrogen 55 mg/dL (7-20) Creatinine 6.2 mg/dL (0.6-1.0) Estimated GFR (Cockcroft-Gault) 9.3 BUN/Creatinine Ratio 9 (6-20) Glucose Level 116 mg/dL (70-99) Calcium Level 8.4 mg/dL (8.5-10.1) Total Bilirubin 0.5 mg/dL (0.2-1.0) Aspartate Amino Transf (AST/SGOT) 32 U/L (15-37) Alanine Aminotransferase (ALT/SGPT) 26 U/L (14-59) Alkaline Phosphatase 148 U/L (46-116) Total Protein 7.0 g/dL (6.4-8.2) Albumin 2.4 g/dL (3.4-5.0) Albumin/Globulin Ratio 0.5 (1.0-1.7) Assessment and Plan Assessmemt and Plan Problems Medical Problems: (1) Anemia Status: Acute Comment Review of Relevant I have reviewed the following items jamie (where applicable) has been applied. Medications: Current Medications Medications (Trade) Dose Ordered Sig/Mary Kay Route PRN Reason Start Time Stop Time Status Last Admin Dose Admin Morphine Sulfate (Morphine Sulfate) 4 mg PRN Q2HR PRN IVP PAIN 12/17/20 09:15 12/18/20 09:14 12/18/20 00:36 Acetaminophen (Tylenol) 1,000 mg TID PO 12/17/20 21:00 12/17/20 21:53 Aspirin (Aspirin Chewable) 81 mg DAILY PO 12/18/20 09:00 12/18/20 08:16 Gabapentin (Neurontin) 300 mg DAILY08 PO 12/18/20 08:00 12/18/20 08:16 Hydralazine HCl (Apresoline) 75 mg BID PO 12/17/20 21:00 12/17/20 21:50 Levetiracetam (Keppra Oral Soln) 375 mg BID PO 12/17/20 21:00 12/17/20 21:52 Lubiprostone (Amitiza) 24 mcg BIDWMEALS PO 12/17/20 17:00 12/17/20 16:41 Oxycodone/ Acetaminophen (Percocet 5/325) 1 tab QIDPRN PRN PO PAIN 12/17/20 15:30 12/18/20 04:05 Sevelamer Carbonate (Renvela) 800 mg TIDWMEALS PO 12/17/20 17:00 12/17/20 16:42 Warfarin Sodium (Coumadin) 4 mg DAILY16 PO 12/17/20 16:00 12/17/20 16:41 Warfarin Sodium (Coumadin Per Physician) 1 each PRN DAILY PRN MC SEE COMMENTS 12/17/20 15:30 12/18/20 07:57 Hydralazine HCl (Apresoline Inj) 10 mg PRN Q6HRS PRN IVP ELEVATED BP, SEE COMMENTS 12/17/20 16:30 12/17/20 16:40 Diphenhydramine HCl (Benadryl) 25 mg PRN Q6HRS PRN PO ITCHING 12/17/20 22:15 12/18/20 08:17 Lidocaine HCl (Xylocaine-Mpf 1% 2ml Vial) 0.25 ml 1X STAT ID 12/18/20 08:34 12/18/20 08:36 DC 12/18/20 08:44 Justifications for Admission Other Justification Hyperkalemia, ESRD on HD, symptomatic anemia ANTONINO MATT MD Dec 18, 2020 09:09
--- NOTE | 2020-12-18 09:14 | NUR ---
Pharmacy Warfarin Dosing Note S:Pharmacy consulted to assist with anticoagulation therapy started with target INR: 2 -3 O:JORGE ESTRADA is a 35 year old F with h/o PE LABS: Last INR: 1.6 Last HGB: 7.7 Last HCT: 23.6 Last PLT: 268 Last dose of 4 mg given on 12/17/20 at 1641 Previous Regimen: 4 mg daily Vitamin K given: N Drug Interaction Changes: Same Interacting Drug Ongoing Drug Interactions: ASA 81 mg A:INR of 1.6 is below desired range. Target range for this patient is: 2 -3 P: Warfarin dose: 4 mg Today at 1600. Bridge Therapy: None Next INR due 12/19/20 Pharmacy anticoagulation service will continue to follow. JAIDA IBRAHIM RPH, 12/18/20 0914
--- NOTE | 2020-12-18 09:33 | PDOC ---
DATE OF SERVICE DATE: 12/18/20 TIME: 09:26 SUBJECTIVE ROS Seen during dialysis , no new complaints or concerns OBJECTIVE Vital Signs Vital Signs Date Time Temp Pulse Resp B/P (MAP) Pulse Ox O2 Delivery O2 Flow Rate FiO2 12/18/20 04:35 16 100 12/18/20 04:00 98.0 74 130/66 (87) Nasal Cannula 6.0 98.0 I & 0 Intake and Output 12/18/20 07:00 Intake Total 620 ml Output Total 0 ml Balance 620 ml Intake Oral 620 ml Output Urine Total 0 ml PHYSICAL EXAM Physical Exam ENERAL:NAD HEENT: OM moist On Chronic O2 by NC NECK: Supple. LUNGS: diminished breath sounds, non labored CARDIOVASCULAR: S1S2 ABDOMEN: Soft, nontender. EXTREMITIES s/p BKA Rt LE ; UE digit amputations NEURO grossly normal No Krishna, No CVA or SP tenderness DIAGNOSIS/ASSESSMENT Assessment & Plan ESRD: on HD MWF; Chronic Non compliance and frequent Hospitalizations for SOB and Increase K . Missed treatment on Tuesday , dialyzed emergently 12/17 for life threatening K Dialysis today as well, seen during treatment, tolerating well. Continue as ordered. Rohan Holbrook Hyperkalemia -life threatening POA- emergent dialysis yest ,K 6.5 this morning , dialysis today as well Anemia- s/p transfusions during recent hospitalizations . Hgb stable , co ntinue SHANAE Past History of Acute respiratory failure with hypoxia- requiring intubation Diastolic CHF Severe PAD with gangrenous eschar on the right foot with ischemic rest pain. 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 Status post finger amputations bilaterally. History of COVID infection on 09/24/2019 and October 09 2019, chronic back pain - with radiculopathy H/o Seizures - on keppra Hypertension cont meds Gluteal ulcer - stage 3, noted from prior admissions History of clotted AV fistula Status post CODE BLUE July and again August - recently discharged from [facility] on 10/08/2020 COMMENT/RELEVANT DATA Meds Current Medications Medications (Trade) Dose Ordered Sig/Mary Kay Start Time Stop Time Status Last Admin Dose Admin Acetaminophen (Tylenol) 1,000 mg TID 12/17/20 21:00 12/17/20 21:53 1,000 MG Acetaminophen/ Hydrocodone Bitart (Lortab 5/325) 1 tab 1X ONCE 12/17/20 05:30 12/17/20 05:31 DC 12/17/20 05:18 1 TAB Albuterol Sulfate (Ventolin Neb Soln) 2.5 mg PRN Q4HRS PRN 12/17/20 15:30 Amlodipine Besylate (Norvasc) 10 mg DAILY 12/18/20 09:00 Aspirin (Aspirin Chewable) 81 mg DAILY 12/18/20 09:00 12/18/20 08:16 81 MG Bisacodyl (Dulcolax Supp) 10 mg PRN DAILY PRN 12/17/20 15:30 Dextrose (Dextrose 50%-Water Syringe) 25 gm 1X ONCE 12/17/20 08:45 12/17/20 08:47 DC 12/17/20 08:59 25 GM Diphenhydramine HCl (Benadryl) 25 mg PRN Q6HRS PRN 12/17/20 22:15 12/18/20 08:17 25 MG Epoetin Fredrick-epbx (RETACRIT for ESRD PTS) 20,000 unit MoWeFr@2100 12/17/20 21:00 Fentanyl Citrate (Fentanyl 2ml Vial) 75 mcg 1X ONCE 12/17/20 06:00 12/17/20 06:01 DC 12/17/20 06:40 75 MCG Gabapentin (Neurontin) 300 mg DAILY08 12/18/20 08:00 12/18/20 08:16 300 MG Hydralazine HCl (Apresoline Inj) 10 mg PRN Q6HRS PRN 12/17/20 16:30 12/17/20 16:40 10 MG Hydralazine HCl (Apresoline) 75 mg BID 12/17/20 21:00 12/17/20 21:50 75 MG Info (PHARMACY MONITORING -- do not chart) 1 each PRN DAILY PRN 12/18/20 08:00 Insulin Human Regular (HumuLIN R VIAL) 10 unit 1X ONCE 12/17/20 08:45 12/17/20 08:47 DC 12/17/20 09:03 10 UNIT Levetiracetam (Keppra Oral Soln) 375 mg BID 12/17/20 21:00 12/17/20 21:52 375 MG Lidocaine HCl (Xylocaine-Mpf 1% 2ml Vial) 0.25 ml 1X STAT 12/18/20 08:34 12/18/20 08:36 DC 12/18/20 08:44 0.25 ML Lubiprostone (Amitiza) 24 mcg BIDWMEALS 12/17/20 17:00 12/17/20 16:41 24 MCG Morphine Sulfate (Morphine Sulfate) 4 mg PRN Q2HR PRN 12/17/20 09:15 12/18/20 09:14 DC 12/18/20 00:36 4 MG Ondansetron HCl (Zofran Odt) 4 mg PRN Q6HRS PRN 12/17/20 15:30 Ondansetron HCl (Zofran) 4 mg 1X ONCE 12/17/20 06:00 12/17/20 06:01 DC 12/17/20 07:18 4 MG Oxycodone/ Acetaminophen (Percocet 5/325) 1 tab QIDPRN PRN 12/17/20 15:30 12/18/20 04:05 1 TAB Sevelamer Carbonate (Renvela) 800 mg TIDWMEALS 12/17/20 17:00 12/17/20 16:42 800 MG Sodium Polystyrene Sulfonate (Kayexalate) 15 gm 1X ONCE 12/18/20 07:00 12/18/20 07:08 DC Sodium Bicarbonate (Sodium Bicarb Adult 8.4% Syr) 50 meq 1X ONCE 12/17/20 08:45 12/17/20 08:47 DC 12/17/20 08:56 50 MEQ Sodium Chloride 1,000 ml @ 400 mls/hr Q2H30M PRN 12/18/20 08:00 12/18/20 19:59 Vitamin B Complex/ Vitamin C (Wendy-Marvin) 1 tab DAILY 12/18/20 09:00 Warfarin Sodium (Coumadin Per Pharmacy) 1 each PRN DAILY PRN 12/18/20 09:15 12/18/20 09:14 1 EACH Warfarin Sodium (Coumadin Per Physician) 1 each PRN DAILY PRN 12/17/20 15:30 12/18/20 09:13 DC 12/18/20 07:57 1 EACH Warfarin Sodium (Coumadin) 4 mg DAILY16 12/17/20 16:00 12/17/20 16:41 4 MG Lab Laboratory Tests Test 12/17/20 14:00 12/17/20 14:35 12/18/20 05:00 Potassium Level 4.0 mmol/L (3.5-5.1) 4.4 mmol/L (3.5-5.1) 6.5 mmol/L (3.5-5.1) White Blood Count 6.6 x10^3/uL (4.0-11.0) Red Blood Count 2.64 x10^6/uL (3.50-5.40) Hemoglobin 7.7 g/dL (12.0-15.5) Hematocrit 23.6 % (36.0-47.0) Mean Corpuscular Volume 90 fL (79-100) Mean Corpuscular Hemoglobin 29 pg (25-35) Mean Corpuscular Hemoglobin Concent 33 g/dL (31-37) Red Cell Distribution Width 17.0 % (11.5-14.5) Platelet Count 268 x10^3/uL (140-400) Neutrophils (%) (Auto) 76 % (31-73) Lymphocytes (%) (Auto) 5 % (24-48) Monocytes (%) (Auto) 8 % (0-9) Eosinophils (%) (Auto) 10 % (0-3) Basophils (%) (Auto) 1 % (0-3) Neutrophils # (Auto) 5.0 x10^3/uL (1.8-7.7) Lymphocytes # (Auto) 0.3 x10^3/uL (1.0-4.8) Monocytes # (Auto) 0.6 x10^3/uL (0.0-1.1) Eosinophils # (Auto) 0.6 x10^3/uL (0.0-0.7) Basophils # (Auto) 0.1 x10^3/uL (0.0-0.2) Prothrombin Time 18.6 SEC (11.7-14.0) Prothromb Time International Ratio 1.6 (0.8-1.1) Sodium Level 137 mmol/L (136-145) Chloride Level 97 mmol/L (98-107) Carbon Dioxide Level 29 mmol/L (21-32) Anion Gap 11 (6-14) Blood Urea Nitrogen 55 mg/dL (7-20) Creatinine 6.2 mg/dL (0.6-1.0) Estimated GFR (Cockcroft-Gault) 9.3 BUN/Creatinine Ratio 9 (6-20) Glucose Level 116 mg/dL (70-99) Calcium Level 8.4 mg/dL (8.5-10.1) Total Bilirubin 0.5 mg/dL (0.2-1.0) Aspartate Amino Transf (AST/SGOT) 32 U/L (15-37) Alanine Aminotransferase (ALT/SGPT) 26 U/L (14-59) Alkaline Phosphatase 148 U/L (46-116) Total Protein 7.0 g/dL (6.4-8.2) Albumin 2.4 g/dL (3.4-5.0) Albumin/Globulin Ratio 0.5 (1.0-1.7) Results All relevant outside records, renal labs, imaging studies, telemetry/EKG's were reviewed. Justicifation of Admission Dx: Justifications for Admission: Justification of Admission Dx: Yes Respiratory Failure: Severe Resp Distress Chronic Renal Failure: Electrolyte Abnormality KADY STEARNS MD Dec 18, 2020 09:33
[2020-12-18 09:43] LABS: % BANDS 1 % (0-9); % EOS 10 % (0-5); % LYMPHS 8 % (24-48); % MONOS 6 % (0-10); % SEGS 75 % (35-66); PLT ESTIMATE ADEQUATE (ADEQUATE)
[2020-12-18] MEDS: MORPHINE SULFATE 4 MG/ML INJ. IV PRN ×2 (14:38→23:07)
--- NOTE | 2020-12-18 15:45 | NUR ---
Pt transferred to room 569 with belongings per wheelchair. RAJNI Munson receiving pt, report has been given per phone. O2 per NC.
--- NOTE | 2020-12-18 16:52 | NUR ---
SS following for discharge planning. SS reviewed pt chart and discussed with RN. Pt is from home and is currently requiring oxygen at two liters nasal canula. COVID19 negative. Pt has home oxygen. Pt has outpatient hemodialysis at [facility], ; fax [phone], Tuesday, Tuesday, and Tuesday. Pt transferred to room 569. Linda XIAO, to follow.
[2020-12-18] MEDS: WARFARIN 4 MG TABLET. PO SCH (18:11)
[2020-12-19] MEDS: oxyCODONE/APAP 5/325 1 TAB TABLET PO PRN ×4 (00:29→19:54)
[2020-12-19 04:00] VITALS: BP 146/64
[2020-12-19] MEDS: LUBIPROSTONE 24 MCG CAPSULE PO SCH ×2 (07:51→16:17)
[2020-12-19] MEDS: ACETAMINOPHEN 500 MG TABLET PO SCH ×3 (07:52→20:14)
[2020-12-19] MEDS: SEVELAMER CARBONATE 800 MG TABLET. PO SCH ×3 (07:52→16:17)
[2020-12-19] MEDS: GABAPENTIN 300 MG CAPSULE. PO SCH (07:52)
[2020-12-19] MEDS: MORPHINE SULFATE 4 MG/ML INJ. IV PRN (07:53)
[2020-12-19] MEDS: ASPIRIN CHEWABLE 81 MG TABLET. PO SCH (07:53)
[2020-12-19 08:00] VITALS: BP 144/69
[2020-12-19 08:14] LABS: PROTHROMBIN TIME PATIENT 16.5 SEC (11.7-14.0)
[2020-12-19] MEDS ORDERED: DIALYSIS PATIENT. MC PRN (08:30)
[2020-12-19] MEDS ORDERED: diphenhydrAMINE 50 MG/ML VIAL IV PRN ×2 (08:30)
[2020-12-19 08:39] LABS: CALCIUM 8.5 mg/dL (8.5-10.1); CREATININE 4.9 mg/dL (0.6-1.0); GFR 12.2
[2020-12-19 08:44] LABS: POTASSIUM 6.1 mmol/L (3.5-5.1)
--- NOTE | 2020-12-19 08:57 | PDOC ---
[employer] PROGRESS NOTE Date of Service DOS: DATE: 12/19/20 TIME: 08:46 Chief Complaint Chief Complaint acute diastolic CHF, fluid overload, missed HD ESRD, on HD, noncompliance, foot back pain, OA, weakness critical hyperkalemia, HD done and labs better, acute on chronic pain disorder, narcotic dependence, PVD< mult prior amputations anemia, chronic on CKD, poor compliance weakness and debility acquired coagulation disorder, mult prior clots, on coumadin, goal 2-3 History of Present Illness History of Present Illness 12/18: pain better, feeds better, no event, to HD today, try to rehab K6.1 today. Pain improved but still asking for IV pain medication. To dialysis. Vitals/I&O Vitals/I&O: Vital Signs Date Time Temp Pulse Resp B/P (MAP) Pulse Ox O2 Delivery O2 Flow Rate FiO2 12/19/20 08:40 Nasal Cannula 12/19/20 08:00 98.5 77 17 144/69 (94) 93 2.0 98.5 I & O 12/18/20 12/18/20 12/19/20 15:00 23:00 07:00 Intake Total 0 ml 360 ml Balance 0 ml 360 ml Physical Exam General: Cooperative, moderate distress Heart: Regular rate, Other (+S47) Lungs: Clear Abdomen: Soft Extremities: Normal pulses, Other Skin: No rashes Labs Labs: Laboratory Tests Test 12/18/20 20:21 12/19/20 07:05 Glucose (Fingerstick) 156 mg/dL (70-99) Prothrombin Time 16.5 SEC (11.7-14.0) Prothromb Time International Ratio 1.3 (0.8-1.1) Sodium Level 138 mmol/L (136-145) Potassium Level 6.1 mmol/L (3.5-5.1) Chloride Level 97 mmol/L (98-107) Carbon Dioxide Level 36 mmol/L (21-32) Anion Gap 5 (6-14) Blood Urea Nitrogen 37 mg/dL (7-20) Creatinine 4.9 mg/dL (0.6-1.0) Estimated GFR (Cockcroft-Gault) 12.2 Glucose Level 170 mg/dL (70-99) Calcium Level 8.5 mg/dL (8.5-10.1) Assessment and Plan Assessmemt and Plan Problems Medical Problems: (1) Anemia Status: Acute Comment Review of Relevant I have reviewed the following items jamie (where applicable) has been applied. Medications: Current Medications Medications (Trade) Dose Ordered Sig/Mary Kay Route PRN Reason Start Time Stop Time Status Last Admin Dose Admin Amlodipine Besylate (Norvasc) 10 mg DAILY PO 12/18/20 09:00 12/18/20 14:37 Aspirin (Aspirin Chewable) 81 mg DAILY PO 12/18/20 09:00 12/19/20 07:53 Vitamin B Complex/ Vitamin C (Wendy-Marvin) 1 tab DAILY PO 12/18/20 09:00 12/18/20 14:37 Warfarin Sodium (Coumadin Per Pharmacy) 1 each PRN DAILY PRN MC SEE COMMENTS 12/18/20 09:15 12/18/20 09:14 Morphine Sulfate (Morphine Sulfate) 4 mg PRN Q6HRS PRN IV PAIN 12/18/20 14:30 12/19/20 07:53 Justifications for Admission Other Justification Hyperkalemia, ESRD on HD, symptomatic anemia BRANDO TRIANA MD Dec 19, 2020 08:57
--- NOTE | 2020-12-19 10:54 | PDOC ---
Renal-Progress Notes Subjective Notes Notes STILL HAS PAIN ALL OVER History of Present Illness Hx of present illness STABLE Vitals Vitals Vital Signs Date Time Temp Pulse Resp B/P (MAP) Pulse Ox O2 Delivery O2 Flow Rate FiO2 12/19/20 10:39 96 Nasal Cannula 4.0 12/19/20 08:00 98.5 77 17 144/69 (94) 98.5 Weight Weight [ ] I.O. Intake and Output Intake and Output 12/19/20 07:00 Intake Total 360 ml Balance 360 ml Intake Oral 360 ml Labs Labs Laboratory Tests Test 12/18/20 20:21 12/19/20 07:05 Glucose (Fingerstick) 156 mg/dL (70-99) Prothrombin Time 16.5 SEC (11.7-14.0) Prothromb Time International Ratio 1.3 (0.8-1.1) Sodium Level 138 mmol/L (136-145) Potassium Level 6.1 mmol/L (3.5-5.1) Chloride Level 97 mmol/L (98-107) Carbon Dioxide Level 36 mmol/L (21-32) Anion Gap 5 (6-14) Blood Urea Nitrogen 37 mg/dL (7-20) Creatinine 4.9 mg/dL (0.6-1.0) Estimated GFR (Cockcroft-Gault) 12.2 Glucose Level 170 mg/dL (70-99) Calcium Level 8.5 mg/dL (8.5-10.1) Review of Systems Constitutional: yes: weakness, alert, oriented Ears/Nose/Throat: Yes: no symptom reported Eyes: Yes: no symptom reported Pulmonary: Yes no symptom reported Cardiovascular: Yes no symptom reported Gastrointestional: Yes: no symptom reported Genitourinary: Yes: no symptom reported Musculoskeletal: Yes: hand pain, foot pain, joint pain, muscle pain, muscle stiffness Skin: Yes no symptom reported Psychiatric/Neurological: Yes: no symptom reported Endocrine: Yes: no symptom reported Hematologic/Lymphatic: Yes: no symptom reported Physical Exam General Appearance: no apparent distress Skin: warm Respiratory: bilateral CTA Heart: S1S2 Abdomen: soft, bowel sounds present Genitourinary: bladder flat Extremities: pulses present Neurology: alert, oriented Assessment Assessment IMP HYPERKALEMIA ANEMIA DM HTN [id number] ARM AVG NON COMPLIANCE PLAN HD TODAY UF TO TW CONT SHANAE ENC COMPLIANCE WILL FOLLOW ERVIN MARTINEZ MD Dec 19, 2020 10:54
--- NOTE | 2020-12-19 11:41 | NUR ---
SW following. Discussed with RN, pt from home, 2L (uses oxygen at home), renal diet. COVID-19 negative. Pt had a critical potassium this morning. Nephrology following. Pt will discharge home when medically stable. Pt is a high risk readmission due to non compliance. SW will continue to follow.
[2020-12-19] MEDS: fentaNYL PF VIAL 100 MCG/2 ML VIAL IVP PRN ×4 (12:03→23:46)
--- NOTE | 2020-12-19 14:37 | NUR ---
Pharmacy Warfarin Dosing Note S:Pharmacy consulted to assist with anticoagulation therapy started with target INR: 2 -3 O:JORGE ESTRADA is a 35 year old F with h/o PE LABS: Last INR: 1.6 Last HGB: 7.7 Last HCT: 23.6 Last PLT: 268 Last dose of 4 mg given on 12/17/20 at 1641 Previous Regimen: Vitamin K given: Drug Interaction Changes: Same Interacting Drug Ongoing Drug Interactions: ASA 81 mg A:INR of 1.6 is below desired range. Target range for this patient is: 2 -3 P: Warfarin dose: 6 mg Now Bridge Therapy: None Next INR due IN AM Pharmacy anticoagulation service will continue to follow. CRICKET WHALEY, [facility], 12/19/20 [id number]
[2020-12-19 16:00] VITALS: BP 132/64
[2020-12-19] MEDS ORDERED: WARFARIN 3 MG TABLET. PO ONE (16:00)
[2020-12-19] MEDS: diphenhydrAMINE HCL 25 MG CAPSULE PO PRN (19:53)
[2020-12-19] MEDS: levETIRAcetam 500 MG/5 ML ORAL SOLUTION. PO SCH (19:53)
[2020-12-19 20:00] VITALS: BP 146/63
[2020-12-19] MEDS: EPOETIN ALFA-EPBX for ESRD 20,000 UNIT/ML VIAL. SQ SCH (20:14)
[2020-12-20] VITALS (7 sets, daily range): BP systolic 134–174; BP diastolic 62–84
[2020-12-20] MEDS: fentaNYL PF VIAL 100 MCG/2 ML VIAL IVP PRN ×5 (04:10→22:53)
[2020-12-20 07:48] LABS: PROTHROMBIN TIME PATIENT 16.2 SEC (11.7-14.0)
[2020-12-20 07:57] LABS: CALCIUM 8.6 mg/dL (8.5-10.1); CREATININE 3.7 mg/dL (0.6-1.0); GFR 16.9
[2020-12-20 08:08] LABS: POTASSIUM 6.3 mmol/L (3.5-5.1)
[2020-12-20] MEDS ORDERED: INSULIN REGULAR 100 UNIT/ML 3ML VIAL. IV ONE (08:30)
[2020-12-20] MEDS ORDERED: DEXTROSE 50% 25 GM / 50ML DISP.SYRIN. IV ONE (08:30)
[2020-12-20] MEDS ORDERED: SODIUM BICARB ADULT 8.4% 50 MEQ/50 ML DISP.SYRIN. IV ONE (08:30)
[2020-12-20] MEDS ORDERED: CALCIUM GLUCONATE 1,000 MG/10 ML VIAL. IVP ONE (08:30)
[2020-12-20] MEDS: LUBIPROSTONE 24 MCG CAPSULE PO SCH ×2 (09:32→16:24)
[2020-12-20] MEDS: FOLIC/VIT B COMP W-C (RENAL) TABLET. PO SCH (09:32)
[2020-12-20] MEDS: ASPIRIN CHEWABLE 81 MG TABLET. PO SCH (09:33)
[2020-12-20] MEDS: GABAPENTIN 300 MG CAPSULE. PO SCH (09:33)
[2020-12-20] MEDS: SEVELAMER CARBONATE 800 MG TABLET. PO SCH ×4 (09:33→16:24)
[2020-12-20] MEDS: levETIRAcetam 500 MG/5 ML ORAL SOLUTION. PO SCH ×2 (09:34→19:46)
[2020-12-20] MEDS: ACETAMINOPHEN 500 MG TABLET PO SCH ×3 (09:34→19:47)
[2020-12-20] MEDS: PANTOPRAZOLE 40 MG TABLET.DR. PO SCH (09:34)
--- NOTE | 2020-12-20 10:53 | PDOC ---
[employer] PROGRESS NOTE Date of Service DOS: DATE: 12/20/20 TIME: 10:51 Chief Complaint Chief Complaint acute diastolic CHF, fluid overload, missed HD ESRD, on HD, noncompliance, foot back pain, OA, weakness critical hyperkalemia, HD done and labs better, acute on chronic pain disorder, narcotic dependence, PVD< mult prior amputations anemia, chronic on CKD, poor compliance weakness and debility acquired coagulation disorder, mult prior clots, on coumadin, goal 2-3 History of Present Illness History of Present Illness 12/18: pain better, feeds better, no event, to HD today, try to rehab 12/19: K6.1 today. Pain improved but still asking for IV pain medication. To dialysis. 12/20: Potassium 6.3. Provided insulin, D50, calcium gluconate, insulin and bicarbonate. I believe she may require hemodialysis again today. Still complains of "pain all over". Requesting morphine but discussed this being contraindicated given her ESRD. Will increase fentanyl to 50 mcg. Vitals/I&O Vitals/I&O: Vital Signs Date Time Temp Pulse Resp B/P (MAP) Pulse Ox O2 Delivery O2 Flow Rate FiO2 12/20/20 10:11 96 Nasal Cannula 4.0 12/20/20 09:33 87 154/71 12/20/20 08:14 98.9 24 98.9 I & O 12/19/20 12/19/20 12/20/20 15:00 23:00 07:00 Intake Total 660 ml 240 ml Balance 660 ml 240 ml Physical Exam General: Alert, severe distress Heart: Regular rate, Other (+S47) Lungs: Clear Abdomen: Soft Extremities: Normal pulses, Other Skin: No rashes Labs Labs: Laboratory Tests Test 12/19/20 21:10 12/20/20 06:35 12/20/20 08:19 Glucose (Fingerstick) 215 mg/dL (70-99) 169 mg/dL (70-99) Prothrombin Time 16.2 SEC (11.7-14.0) Prothromb Time International Ratio 1.3 (0.8-1.1) Sodium Level 139 mmol/L (136-145) Potassium Level 6.3 mmol/L (3.5-5.1) Chloride Level 99 mmol/L (98-107) Carbon Dioxide Level 34 mmol/L (21-32) Anion Gap 6 (6-14) Blood Urea Nitrogen 25 mg/dL (7-20) Creatinine 3.7 mg/dL (0.6-1.0) Estimated GFR (Cockcroft-Gault) 16.9 Glucose Level 138 mg/dL (70-99) Calcium Level 8.6 mg/dL (8.5-10.1) Assessment and Plan Assessmemt and Plan Problems Medical Problems: (1) Anemia Status: Acute Comment Review of Relevant I have reviewed the following items jamie (where applicable) has been applied. Medications: Current Medications Medications (Trade) Dose Ordered Sig/Mary Kay Route PRN Reason Start Time Stop Time Status Last Admin Dose Admin Warfarin Sodium (Coumadin) 6 mg 1X WARF ONCE PO 12/19/20 16:00 12/19/20 16:01 DC 12/19/20 16:17 Pantoprazole Sodium (Protonix) 40 mg DAILYAC PO 12/20/20 07:30 12/20/20 09:34 Dextrose (Dextrose 50%-Water Syringe) 25 gm 1X ONCE IV 12/20/20 08:30 12/20/20 08:39 DC 12/20/20 09:31 Insulin Human Regular (HumuLIN R VIAL) 5 unit 1X ONCE IV 12/20/20 08:30 12/20/20 08:39 DC 12/20/20 09:57 Sodium Bicarbonate (Sodium Bicarb Adult 8.4% Syr) 50 meq 1X ONCE IV 12/20/20 08:30 12/20/20 08:39 DC 12/20/20 09:31 Calcium Gluconate (Calcium Gluconate) 1,000 mg 1X ONCE IVP 12/20/20 08:30 12/20/20 08:39 DC 12/20/20 09:31 Justifications for Admission Other Justification Hyperkalemia, ESRD on HD, symptomatic anemia LIZBETH SCOTT MD Dec 20, 2020 10:53
[2020-12-20] MEDS: oxyCODONE/APAP 5/325 1 TAB TABLET PO PRN ×2 (11:10→19:47)
--- NOTE | 2020-12-20 14:28 | PDOC ---
DATE OF SERVICE DATE: 12/20/20 TIME: 14:26 SUBJECTIVE ROS no new complaints or concerns OBJECTIVE Vital Signs Vital Signs Date Time Temp Pulse Resp B/P (MAP) Pulse Ox O2 Delivery O2 Flow Rate FiO2 12/20/20 13:45 93 Nasal Cannula 5.0 12/20/20 12:02 98.8 104 24 174/84 (114) 98.8 I & 0 Intake and Output 12/20/20 07:00 Intake Total 900 ml Balance 900 ml Intake Oral 900 ml PHYSICAL EXAM Physical Exam ENERAL:NAD HEENT: OM moist On Chronic O2 by NC NECK: Supple. LUNGS: diminished breath sounds, non labored CARDIOVASCULAR: S1S2 ABDOMEN: Soft, nontender. EXTREMITIES s/p BKA Rt LE ; UE digit amputations NEURO grossly normal No Krishna, No CVA or SP tenderness DIAGNOSIS/ASSESSMENT Assessment & Plan ESRD: on HD MWF; Chronic Non compliance and frequent Hospitalizations for SOB and Increase K . Hyperkalemia -life threatening POA-. Chronic elevated K. Give Kayexalate x 1 Anemia- s/p transfusions during recent hospitalizations . Hgb stable , continue SHANAE Past History of Acute respiratory failure with hypoxia- requiring intubation Diastolic CHF Severe PAD with gangrenous eschar on the right foot with ischemic rest pain. 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 Status post finger amputations bilaterally. History of COVID infection on 09/24/2019 and October 09 2019, chronic back pain - with radiculopathy H/o Seizures - on keppra Hypertension cont meds Gluteal ulcer - stage 3, noted from prior admissions History of clotted AV fistula Status post CODE BLUE July and again August - recently discharged from [facility] on 10/08/2020 COMMENT/RELEVANT DATA Meds Current Medications Medications (Trade) Dose Ordered Sig/Mary Kay Start Time Stop Time Status Last Admin Dose Admin Acetaminophen (Tylenol) 1,000 mg TID 12/17/20 21:00 12/20/20 09:34 1,000 MG Acetaminophen/ Hydrocodone Bitart (Lortab 5/325) 1 tab 1X ONCE 12/17/20 05:30 12/17/20 05:31 DC 12/17/20 05:18 1 TAB Albuterol Sulfate (Ventolin Neb Soln) 2.5 mg PRN Q4HRS PRN 12/17/20 15:30 Amlodipine Besylate (Norvasc) 10 mg DAILY 12/18/20 09:00 12/20/20 09:33 10 MG Aspirin (Aspirin Chewable) 81 mg DAILY 12/18/20 09:00 12/20/20 09:33 81 MG Bisacodyl (Dulcolax Supp) 10 mg PRN DAILY PRN 12/17/20 15:30 Calcium Gluconate (Calcium Gluconate) 1,000 mg 1X ONCE 12/20/20 08:30 12/20/20 08:39 DC 12/20/20 09:31 1,000 MG Dextrose (Dextrose 50%-Water Syringe) 25 gm 1X ONCE 12/20/20 08:30 12/20/20 08:39 DC 12/20/20 09:31 25 GM Diphenhydramine HCl (Benadryl) 25 mg 1X PRN PRN 12/19/20 08:30 12/20/20 08:29 DC Epoetin Fredrick-epbx (RETACRIT for ESRD PTS) 20,000 unit MoWeFr@2100 12/17/20 21:00 12/19/20 20:14 20,000 UNIT Fentanyl Citrate (Fentanyl 2ml Vial) 50 mcg PRN Q2HR PRN 12/20/20 11:30 12/20/20 12:45 50 MCG Gabapentin (Neurontin) 300 mg DAILY08 12/18/20 08:00 12/20/20 09:33 300 MG Hydralazine HCl (Apresoline Inj) 10 mg PRN Q6HRS PRN 12/17/20 16:30 12/17/20 16:40 10 MG Hydralazine HCl (Apresoline) 75 mg BID 12/17/20 21:00 12/20/20 09:33 75 MG Info (PHARMACY MONITORING -- do not chart) 1 each PRN DAILY PRN 12/19/20 08:30 Insulin Human Regular (HumuLIN R VIAL) 5 unit 1X ONCE 12/20/20 08:30 12/20/20 08:39 DC 12/20/20 09:57 5 UNIT Levetiracetam (Keppra Oral Soln) 375 mg BID 12/17/20 21:00 12/20/20 09:34 375 MG Lidocaine HCl (Xylocaine-Mpf 1% 2ml Vial) 0.25 ml 1X STAT 12/18/20 08:34 12/18/20 08:36 DC 12/18/20 08:44 0.25 ML Lubiprostone (Amitiza) 24 mcg BIDWMEALS 12/17/20 17:00 12/20/20 09:32 24 MCG Morphine Sulfate (Morphine Sulfate) 4 mg PRN Q6HRS PRN 12/18/20 14:30 12/19/20 10:27 DC 12/19/20 07:53 4 MG Ondansetron HCl (Zofran Odt) 4 mg PRN Q6HRS PRN 12/17/20 15:30 Ondansetron HCl (Zofran) 4 mg 1X ONCE 12/17/20 06:00 12/17/20 06:01 DC 12/17/20 07:18 4 MG Oxycodone/ Acetaminophen (Percocet 5/325) 1 tab QIDPRN PRN 12/17/20 15:30 12/20/20 11:10 1 TAB Pantoprazole Sodium (Protonix) 40 mg DAILYAC 12/20/20 07:30 12/20/20 09:34 40 MG Sevelamer Carbonate (Renvela) 800 mg TIDWMEALS 12/17/20 17:00 12/20/20 12:44 800 MG Sodium Polystyrene Sulfonate (Kayexalate) 15 gm 1X ONCE 12/18/20 07:00 12/18/20 10:13 DC Sodium Bicarbonate (Sodium Bicarb Adult 8.4% Syr) 50 meq 1X ONCE 12/20/20 08:30 12/20/20 08:39 DC 12/20/20 09:31 50 MEQ Sodium Chloride 1,000 ml @ 400 mls/hr Q2H30M PRN 12/18/20 08:00 12/18/20 19:59 DC Vitamin B Complex/ Vitamin C (Wendy-Marvin) 1 tab DAILY 12/18/20 09:00 12/20/20 09:32 1 TAB Warfarin Sodium (Coumadin Per Pharmacy) 1 each PRN DAILY PRN 12/18/20 09:15 12/19/20 14:33 1 EACH Warfarin Sodium (Coumadin Per Physician) 1 each PRN DAILY PRN 12/17/20 15:30 12/18/20 09:13 DC 12/18/20 07:57 1 EACH Warfarin Sodium (Coumadin) 6 mg 1X WARF ONCE 12/19/20 16:00 12/19/20 16:01 DC 12/19/20 16:17 6 MG Lab Laboratory Tests Test 12/19/20 21:10 12/20/20 06:35 12/20/20 08:19 12/20/20 12:44 Glucose (Fingerstick) 215 mg/dL (70-99) 169 mg/dL (70-99) 187 mg/dL (70-99) Prothrombin Time 16.2 SEC (11.7-14.0) Prothromb Time International Ratio 1.3 (0.8-1.1) Sodium Level 139 mmol/L (136-145) Potassium Level 6.3 mmol/L (3.5-5.1) Chloride Level 99 mmol/L (98-107) Carbon Dioxide Level 34 mmol/L (21-32) Anion Gap 6 (6-14) Blood Urea Nitrogen 25 mg/dL (7-20) Creatinine 3.7 mg/dL (0.6-1.0) Estimated GFR (Cockcroft-Gault) 16.9 Glucose Level 138 mg/dL (70-99) Calcium Level 8.6 mg/dL (8.5-10.1) Results All relevant outside records, renal labs, imaging studies, telemetry/EKG's were reviewed. Justicifation of Admission Dx: Justifications for Admission: Justification of Admission Dx: Yes Respiratory Failure: Severe Resp Distress Chronic Renal Failure: Electrolyte Abnormality KADY STEARNS MD Dec 20, 2020 14:28
[2020-12-20] MEDS ORDERED: SODIUM POLYSTYRENE SULFON/SORB 15 GM/60 ML ORAL.SUSP. PO ONE (14:30)
--- NOTE | 2020-12-20 15:41 | NUR ---
Pharmacy Warfarin Dosing Note S:Pharmacy consulted to assist with anticoagulation therapy started with target INR: 2 -3 O:JORGE ESTRADA is a 35 year old F with h/o PE LABS: Last INR: 1.3 Last HGB: 7.7 Last HCT: 23.6 Last PLT: 268 Last dose of 6 mg given on 12/19/20 at 1458 Previous Regimen: Vitamin K given: Drug Interaction Changes: Same Interacting Drug Ongoing Drug Interactions: ASA 81 mg A:INR of 1.3 is below desired range. Target range for this patient is: 2 -3 P: Warfarin dose: 7.5 mg Today at 1600 Bridge Therapy: None Next INR due IN AM Pharmacy anticoagulation service will continue to follow. CRICKET WHALEY, [facility], 12/20/20 [id number]
[2020-12-20] MEDS ORDERED: WARFARIN 7.5 MG TABLET. PO ONE (16:00)
[2020-12-20] MEDS: diphenhydrAMINE HCL 25 MG CAPSULE PO PRN (19:46)
[2020-12-21] VITALS (10 sets, daily range): BP systolic 109–153; BP diastolic 57–77
[2020-12-21] MEDS: fentaNYL PF VIAL 100 MCG/2 ML VIAL IVP PRN ×7 (01:27→20:40)
--- NOTE | 2020-12-21 03:59 | NUR ---
Patient is awake all night eating four to five lunch boxes with turkey sandwich and extra mayonnaise, constantly certification officer light asking for more sandwiches to eat.
[2020-12-21 05:09] LABS: PROTHROMBIN TIME PATIENT 18.2 SEC (11.7-14.0)
[2020-12-21] MEDS: PANTOPRAZOLE 40 MG TABLET.DR. PO SCH (05:52)
[2020-12-21] MEDS: SEVELAMER CARBONATE 800 MG TABLET. PO SCH ×3 (07:39→18:05)
[2020-12-21] MEDS: FOLIC/VIT B COMP W-C (RENAL) TABLET. PO SCH (07:39)
[2020-12-21] MEDS: ACETAMINOPHEN 500 MG TABLET PO SCH ×3 (07:39→20:40)
[2020-12-21] MEDS: ASPIRIN CHEWABLE 81 MG TABLET. PO SCH (07:39)
[2020-12-21] MEDS: GABAPENTIN 300 MG CAPSULE. PO SCH (07:40)
[2020-12-21] MEDS: levETIRAcetam 500 MG/5 ML ORAL SOLUTION. PO SCH ×2 (07:41→20:38)
[2020-12-21] MEDS: LUBIPROSTONE 24 MCG CAPSULE PO SCH ×3 (08:00→16:51)
[2020-12-21 08:31] LABS: CREATININE 5.2 mg/dL (0.6-1.0); GFR 11.4
[2020-12-21 08:39] LABS: BASO # 0.1 x10^3/uL (0.0-0.2); BASO % 1 % (0-3); EOS # 0.7 x10^3/uL (0.0-0.7); EOS % 9 % (0-3); HEMATOCRIT 21.8 % (36.0-47.0); LYMPH # 0.9 x10^3/uL (1.0-4.8); LYMPH % 11 % (24-48); MEAN CORPUSCULAR HEMOGLOBIN 29 pg (25-35); MEAN CORPUSCULAR HGB CONC 32 g/dL (31-37); MEAN CORPUSCULAR VOLUME 93 fL (79-100); MONO # 0.9 x10^3/uL (0.0-1.1); MONO % 12 % (0-9); NEUT # 5.3 x10^3/uL (1.8-7.7); NEUT % 67 % (31-73); PLATELET COUNT 266 x10^3/uL (140-400); RED BLOOD COUNT 2.35 x10^6/uL (3.50-5.40); RED CELL DISTRIBUTION WIDTH 17.3 % (11.5-14.5); WHITE BLOOD COUNT 7.9 x10^3/uL (4.0-11.0)
[2020-12-21 08:42] LABS: HEMOGLOBIN 6.9 g/dL (12.0-15.5)
[2020-12-21 08:48] LABS: POTASSIUM 7.4 mmol/L (3.5-5.1)
--- NOTE | 2020-12-21 09:35 | PDOC ---
[employer] PROGRESS NOTE Date of Service DOS: DATE: 12/21/20 TIME: 09:31 Chief Complaint Chief Complaint acute diastolic CHF, fluid overload, missed HD ESRD, on HD, noncompliance, foot back pain, OA, weakness critical hyperkalemia, HD done and labs better, acute on chronic pain disorder, narcotic dependence, PVD< mult prior amputations anemia, chronic on CKD, poor compliance weakness and debility acquired coagulation disorder, mult prior clots, on coumadin, goal 2-3 History of Present Illness History of Present Illness 12/18: pain better, feeds better, no event, to HD today, try to rehab 12/19: K6.1 today. Pain improved but still asking for IV pain medication. To dialysis. 12/20: Potassium 6.3. Provided insulin, D50, calcium gluconate, insulin and bicarbonate. I believe she may require hemodialysis again today. Still complains of "pain all over". Requesting morphine but discussed this being contraindicated given her ESRD. Will increase fentanyl to 50 mcg. 12/21: Hemoglobin 6.9 this morning, potassium 7.4. Will provide IV insulin, D50, calcium gluconate, insulin and bicarbonate. Nephrology has been informed that she will have hemodialysis today. We will also transfuse 1 unit PRBC during dialysis. Vitals/I&O Vitals/I&O: Vital Signs Date Time Temp Pulse Resp B/P (MAP) Pulse Ox O2 Delivery O2 Flow Rate FiO2 12/21/20 08:37 18 93 Nasal Cannula 5.0 12/21/20 08:00 98.5 93 151/77 (101) 98.5 I & O 12/20/20 12/20/20 12/21/20 15:00 23:00 07:00 Intake Total 120 ml 660 ml 440 ml Balance 120 ml 660 ml 440 ml Physical Exam General: Alert, severe distress Heart: Regular rate, Other (+S47) Lungs: Clear Abdomen: Soft Extremities: Normal pulses, Other Skin: No rashes Labs Labs: Laboratory Tests Test 12/20/20 12:44 12/20/20 16:43 12/20/20 21:25 12/21/20 04:30 Glucose (Fingerstick) 187 mg/dL (70-99) 135 mg/dL (70-99) 192 mg/dL (70-99) White Blood Count 7.9 x10^3/uL (4.0-11.0) Red Blood Count 2.35 x10^6/uL (3.50-5.40) Hemoglobin 6.9 g/dL (12.0-15.5) Hematocrit 21.8 % (36.0-47.0) Mean Corpuscular Volume 93 fL (79-100) Mean Corpuscular Hemoglobin 29 pg (25-35) Mean Corpuscular Hemoglobin Concent 32 g/dL (31-37) Red Cell Distribution Width 17.3 % (11.5-14.5) Platelet Count 266 x10^3/uL (140-400) Neutrophils (%) (Auto) 67 % (31-73) Lymphocytes (%) (Auto) 11 % (24-48) Monocytes (%) (Auto) 12 % (0-9) Eosinophils (%) (Auto) 9 % (0-3) Basophils (%) (Auto) 1 % (0-3) Neutrophils # (Auto) 5.3 x10^3/uL (1.8-7.7) Lymphocytes # (Auto) 0.9 x10^3/uL (1.0-4.8) Monocytes # (Auto) 0.9 x10^3/uL (0.0-1.1) Eosinophils # (Auto) 0.7 x10^3/uL (0.0-0.7) Basophils # (Auto) 0.1 x10^3/uL (0.0-0.2) Prothrombin Time 18.2 SEC (11.7-14.0) Prothromb Time International Ratio 1.5 (0.8-1.1) Sodium Level 140 mmol/L (136-145) Potassium Level 7.4 mmol/L (3.5-5.1) Chloride Level 99 mmol/L (98-107) Carbon Dioxide Level 33 mmol/L (21-32) Anion Gap 8 (6-14) Blood Urea Nitrogen 42 mg/dL (7-20) Creatinine 5.2 mg/dL (0.6-1.0) Estimated GFR (Cockcroft-Gault) 11.4 Glucose Level 207 mg/dL (70-99) Calcium Level 9.0 mg/dL (8.5-10.1) Assessment and Plan Assessmemt and Plan Problems Medical Problems: (1) Anemia Status: Acute Comment Review of Relevant I have reviewed the following items jamie (where applicable) has been applied. Medications: Current Medications Medications (Trade) Dose Ordered Sig/Mary Kay Route PRN Reason Start Time Stop Time Status Last Admin Dose Admin Fentanyl Citrate (Fentanyl 2ml Vial) 50 mcg PRN Q2HR PRN IVP SEVERE PAIN 7-10 12/20/20 11:30 12/21/20 08:37 Sodium Polystyrene Sulfonate (Kayexalate) 15 gm 1X ONCE PO 12/20/20 14:30 12/20/20 14:52 DC 12/20/20 16:23 Warfarin Sodium (Coumadin) 7.5 mg 1X WARF ONCE PO 12/20/20 16:00 12/20/20 16:01 DC 12/20/20 16:24 Justifications for Admission Other Justification Hyperkalemia, ESRD on HD, symptomatic anemia LIZBETH SCOTT MD Dec 21, 2020 09:35
[2020-12-21] MEDS ORDERED: SODIUM BICARB ADULT 8.4% 50 MEQ/50 ML DISP.SYRIN. IV ONE (09:45)
[2020-12-21] MEDS ORDERED: INSULIN REGULAR 100 UNIT/ML 3ML VIAL. IV ONE (09:45)
[2020-12-21] MEDS ORDERED: DEXTROSE 50% 25 GM / 50ML DISP.SYRIN. IV ONE (10:00)
[2020-12-21] MEDS: oxyCODONE/APAP 5/325 1 TAB TABLET PO PRN ×2 (10:57→18:05)
[2020-12-21] MEDS ORDERED: IV NORMAL SALINE 1000ML BAG 1,000 ML IV PRN ×2 (11:30)
[2020-12-21] MEDS ORDERED: DIALYSIS PATIENT. MC PRN ×2 (11:30)
[2020-12-21] MEDS ORDERED: ALBUMIN HUMAN 25% 200 ML IV PRN (11:30)
--- NOTE | 2020-12-21 13:23 | PDOC ---
DATE OF SERVICE DATE: 12/21/20 TIME: 13:21 SUBJECTIVE ROS Seen during dialysis , no new complaints or concerns OBJECTIVE Vital Signs Vital Signs Date Time Temp Pulse Resp B/P (MAP) Pulse Ox O2 Delivery O2 Flow Rate FiO2 12/21/20 13:00 98.7 100 22 122/62 98.7 12/21/20 12:58 93 Nasal Cannula 5.0 I & 0 Intake and Output 12/21/20 07:00 Intake Total 1220 ml Balance 1220 ml Intake Oral 1220 ml # Bowel Movements 1 PHYSICAL EXAM Physical Exam ENERAL:NAD HEENT: OM moist On Chronic O2 by NC NECK: Supple. LUNGS: diminished breath sounds, non labored CARDIOVASCULAR: S1S2 ABDOMEN: Soft, nontender. EXTREMITIES s/p BKA Rt LE ; UE digit amputations NEURO grossly normal No Krishna, No CVA or SP tenderness DIAGNOSIS/ASSESSMENT Assessment & Plan ESRD: on HD MWF; emergent dialysis today for HyperKalemia . Seen during treatment ,, tolerating well , discussed with Sheron. Hyperkalemia -life threatening POA-. Chronic elevated K. Kayexalate x 1 on 12/20; K worse today, emergent dialysis Anemia- s/p transfusions during recent hospitalizations . Hgb > 7 receiving 1 Unit of PRBC on dialysis ; continue SHANAE Past History of Acute respiratory failure with hypoxia- requiring intubation Diastolic CHF Severe PAD with gangrenous eschar on the right foot with ischemic rest pain. 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 Status post finger amputations bilaterally. History of COVID infection on 09/24/2019 and October 09 2019, chronic back pain - with radiculopathy H/o Seizures - on keppra Hypertension cont meds Gluteal ulcer - stage 3, noted from prior admissions History of clotted AV fistula Status post CODE BLUE July and again August - recently discharged from [facility] on 10/08/2020 COMMENT/RELEVANT DATA Meds Current Medications Medications (Trade) Dose Ordered Sig/Mary Kay Start Time Stop Time Status Last Admin Dose Admin Acetaminophen (Tylenol) 1,000 mg TID 12/17/20 21:00 12/21/20 07:39 1,000 MG Acetaminophen/ Hydrocodone Bitart (Lortab 5/325) 1 tab 1X ONCE 12/17/20 05:30 12/17/20 05:31 DC 12/17/20 05:18 1 TAB Albumin Human 200 ml @ 200 mls/hr 1X PRN PRN 12/21/20 11:30 12/21/20 17:29 Albuterol Sulfate (Ventolin Neb Soln) 2.5 mg PRN Q4HRS PRN 12/17/20 15:30 Amlodipine Besylate (Norvasc) 10 mg DAILY 12/18/20 09:00 12/21/20 07:43 10 MG Aspirin (Aspirin Chewable) 81 mg DAILY 12/18/20 09:00 12/21/20 07:39 81 MG Bisacodyl (Dulcolax Supp) 10 mg PRN DAILY PRN 12/17/20 15:30 Calcium Gluconate (Calcium Gluconate) 1,000 mg 1X ONCE 12/20/20 08:30 12/20/20 08:39 DC 12/20/20 09:31 1,000 MG Dextrose (Dextrose 50%-Water Syringe) 25 gm 1X ONCE 12/21/20 10:00 12/21/20 10:08 DC 12/21/20 10:57 25 GM Diphenhydramine HCl (Benadryl) 25 mg 1X PRN PRN 12/19/20 08:30 12/20/20 08:29 DC Epoetin Fredrick-epbx (RETACRIT for ESRD PTS) 20,000 unit MoWeFr@2100 12/17/20 21:00 12/19/20 20:14 20,000 UNIT Fentanyl Citrate (Fentanyl 2ml Vial) 50 mcg PRN Q2HR PRN 12/20/20 11:30 12/21/20 12:58 50 MCG Gabapentin (Neurontin) 300 mg DAILY08 12/18/20 08:00 12/21/20 07:40 300 MG Hydralazine HCl (Apresoline Inj) 10 mg PRN Q6HRS PRN 12/17/20 16:30 12/17/20 16:40 10 MG Hydralazine HCl (Apresoline) 75 mg BID 12/17/20 21:00 12/21/20 07:44 75 MG Info (PHARMACY MONITORING -- do not chart) 1 each PRN DAILY PRN 12/21/20 11:30 Insulin Human Regular (HumuLIN R VIAL) 5 unit 1X ONCE 12/21/20 09:45 12/21/20 09:48 DC 12/21/20 11:15 5 UNIT Levetiracetam (Keppra Oral Soln) 375 mg BID 12/17/20 21:00 12/21/20 07:41 375 MG Lidocaine HCl (Xylocaine-Mpf 1% 2ml Vial) 0.25 ml 1X STAT 12/18/20 08:34 12/18/20 08:36 DC 12/18/20 08:44 0.25 ML Lubiprostone (Amitiza) 24 mcg BIDWMEALS 12/17/20 17:00 12/21/20 08:38 24 MCG Morphine Sulfate (Morphine Sulfate) 4 mg PRN Q6HRS PRN 12/18/20 14:30 12/19/20 10:27 DC 12/19/20 07:53 4 MG Ondansetron HCl (Zofran Odt) 4 mg PRN Q6HRS PRN 12/17/20 15:30 Ondansetron HCl (Zofran) 4 mg 1X ONCE 12/17/20 06:00 12/17/20 06:01 DC 12/17/20 07:18 4 MG Oxycodone/ Acetaminophen (Percocet 5/325) 1 tab QIDPRN PRN 12/17/20 15:30 12/21/20 10:57 1 TAB Pantoprazole Sodium (Protonix) 40 mg DAILYAC 12/20/20 07:30 12/21/20 05:52 40 MG Sevelamer Carbonate (Renvela) 800 mg TIDWMEALS 12/17/20 17:00 12/21/20 07:39 800 MG Sodium Polystyrene Sulfonate (Kayexalate) 15 gm 1X ONCE 12/20/20 14:30 12/20/20 14:52 DC 12/20/20 16:23 15 GM Sodium Bicarbonate (Sodium Bicarb Adult 8.4% Syr) 50 meq 1X ONCE 12/21/20 09:45 12/21/20 09:48 DC 12/21/20 10:58 50 MEQ Sodium Chloride 1,000 ml @ 400 mls/hr Q2H30M PRN 12/21/20 11:30 12/21/20 23:29 Vitamin B Complex/ Vitamin C (Wendy-Marvin) 1 tab DAILY 12/18/20 09:00 10/17/21 07:39 1 TAB Warfarin Sodium (Coumadin Per Pharmacy) 1 each PRN DAILY PRN 12/18/20 09:15 12/20/20 15:40 1 EACH Warfarin Sodium (Coumadin Per Physician) 1 each PRN DAILY PRN 12/17/20 15:30 12/18/20 09:13 DC 12/18/20 07:57 1 EACH Warfarin Sodium (Coumadin) 7.5 mg 1X WARF ONCE 12/20/20 16:00 12/20/20 16:01 DC 12/20/20 16:24 7.5 MG Lab Laboratory Tests Test 12/20/20 16:43 12/20/20 21:25 12/21/20 04:30 Glucose (Fingerstick) 135 mg/dL (70-99) 192 mg/dL (70-99) White Blood Count 7.9 x10^3/uL (4.0-11.0) Red Blood Count 2.35 x10^6/uL (3.50-5.40) Hemoglobin 6.9 g/dL (12.0-15.5) Hematocrit 21.8 % (36.0-47.0) Mean Corpuscular Volume 93 fL (79-100) Mean Corpuscular Hemoglobin 29 pg (25-35) Mean Corpuscular Hemoglobin Concent 32 g/dL (31-37) Red Cell Distribution Width 17.3 % (11.5-14.5) Platelet Count 266 x10^3/uL (140-400) Neutrophils (%) (Auto) 67 % (31-73) Lymphocytes (%) (Auto) 11 % (24-48) Monocytes (%) (Auto) 12 % (0-9) Eosinophils (%) (Auto) 9 % (0-3) Basophils (%) (Auto) 1 % (0-3) Neutrophils # (Auto) 5.3 x10^3/uL (1.8-7.7) Lymphocytes # (Auto) 0.9 x10^3/uL (1.0-4.8) Monocytes # (Auto) 0.9 x10^3/uL (0.0-1.1) Eosinophils # (Auto) 0.7 x10^3/uL (0.0-0.7) Basophils # (Auto) 0.1 x10^3/uL (0.0-0.2) Prothrombin Time 18.2 SEC (11.7-14.0) Prothromb Time International Ratio 1.5 (0.8-1.1) Sodium Level 140 mmol/L (136-145) Potassium Level 7.4 mmol/L (3.5-5.1) Chloride Level 99 mmol/L (98-107) Carbon Dioxide Level 33 mmol/L (21-32) Anion Gap 8 (6-14) Blood Urea Nitrogen 42 mg/dL (7-20) Creatinine 5.2 mg/dL (0.6-1.0) Estimated GFR (Cockcroft-Gault) 11.4 Glucose Level 207 mg/dL (70-99) Calcium Level 9.0 mg/dL (8.5-10.1) Results All relevant outside records, renal labs, imaging studies, telemetry/EKG's were reviewed. Justicifation of Admission Dx: Justifications for Admission: Justification of Admission Dx: Yes Respiratory Failure: Severe Resp Distress Chronic Renal Failure: Electrolyte Abnormality KADY STEARNS MD Dec 21, 2020 13:23
--- NOTE | 2020-12-21 15:58 | NUR ---
Pharmacy Warfarin Dosing Note S:Pharmacy consulted to assist with anticoagulation therapy started with target INR: 2 -3 O:JORGE ESTRADA is a 35 year old F with h/o PE LABS: Last INR: 1.5 Last HGB: 6.9 Last HCT: 21.8 Last PLT: 266 Last dose of 7.5 mg given on 12/20/20 at 1624 Previous Regimen: Vitamin K given: Drug Interaction Changes: Same Interacting Drug Ongoing Drug Interactions: ASA 81 mg A:INR of 1.5 is below desired range. Target range for this patient is: 2 -3 P: Warfarin dose: 7.5 mg Today at 1600. Bridge Therapy: None Next INR due tomorrow. Pharmacy anticoagulation service will continue to follow. Shukri Tinajero [facility], 12/21/20 [id number]
[2020-12-21] MEDS ORDERED: WARFARIN 7.5 MG TABLET. PO ONE (16:00)
--- NOTE | 2020-12-21 16:56 | NUR ---
Nurse's note: Critical lab results relayed to Dr. Soto and Dr. Figueroa, new orders received. Hyperkalemia regimen given. The patient underwent hemodialysis and transfusion of 1 unit packed RBC.
--- NOTE | 2020-12-21 18:55 | NUR ---
Nurse's note: The patient was verbally abusive to the staff today. She called this nurse an "asshole" and a "liar" after telling her that the pain med, fentanyl is not due for administration. The patient's O2 sat was at 86%, so this nurse discussed with her that we need to an adequate interval for her pain medicine. Ms. Wilder screamed and wailed that the staff is not being helpful. This afternoon, she told this nurse that she is going to call the police since nobody is paying attention to her. Discussed with her that staff members are available except if they are in a room taking care of other patients.
[2020-12-21] MEDS: diphenhydrAMINE HCL 25 MG CAPSULE PO PRN (20:40)
[2020-12-22] MEDS: fentaNYL PF VIAL 100 MCG/2 ML VIAL IVP PRN ×2 (00:09→11:10)
[2020-12-22 03:08] VITALS: BP 150/72
[2020-12-22] MEDS: PANTOPRAZOLE 40 MG TABLET.DR. PO SCH (03:44)
[2020-12-22] MEDS: oxyCODONE/APAP 5/325 1 TAB TABLET PO PRN ×3 (03:44→18:51)
--- NOTE | 2020-12-22 03:52 | NUR ---
Patient up all night crying out and hollering out disrupting and waking up other Patients on unit, She is saying that no one is paying any attention to her, all staff on unit has been taking turns going into her room when she calls and holler out. Mariah mining and quarrying machinery repairer Nurse even sat down with her for a while letting Patient just vent, after Mariah left she voiced, "She did not even want to help me. She just came in to pretend to listen." Then she called her sister saying that she wanted her door open when it was already open and she told her sister that staff was discussing her at the nurses station.
[2020-12-22 08:00] VITALS: BP 144/77
[2020-12-22 08:19] LABS: CALCIUM 9.1 mg/dL (8.5-10.1); CREATININE 4.2 mg/dL (0.6-1.0); GFR 14.6
[2020-12-22 08:20] LABS: POTASSIUM 6.5 mmol/L (3.5-5.1)
[2020-12-22] MEDS: FOLIC/VIT B COMP W-C (RENAL) TABLET. PO SCH (08:23)
[2020-12-22] MEDS: LUBIPROSTONE 24 MCG CAPSULE PO SCH ×2 (08:23→18:52)
[2020-12-22] MEDS: SEVELAMER CARBONATE 800 MG TABLET. PO SCH ×3 (08:24→18:51)
[2020-12-22 08:32] LABS: BASO # 0.1 x10^3/uL (0.0-0.2); BASO % 1 % (0-3); EOS # 0.6 x10^3/uL (0.0-0.7); EOS % 7 % (0-3); HEMATOCRIT 25.2 % (36.0-47.0); HEMOGLOBIN 8.2 g/dL (12.0-15.5); LYMPH # 1.1 x10^3/uL (1.0-4.8); LYMPH % 13 % (24-48); MEAN CORPUSCULAR HEMOGLOBIN 29 pg (25-35); MEAN CORPUSCULAR HGB CONC 33 g/dL (31-37); MEAN CORPUSCULAR VOLUME 90 fL (79-100); MONO # 0.8 x10^3/uL (0.0-1.1); MONO % 9 % (0-9); NEUT # 5.8 x10^3/uL (1.8-7.7); NEUT % 70 % (31-73); PLATELET COUNT 229 x10^3/uL (140-400); RED CELL DISTRIBUTION WIDTH 16.7 % (11.5-14.5); WHITE BLOOD COUNT 8.4 x10^3/uL (4.0-11.0)
[2020-12-22] MEDS: ACETAMINOPHEN 500 MG TABLET PO SCH ×3 (08:37→20:40)
--- NOTE | 2020-12-22 10:28 | PDOC ---
DATE OF SERVICE DATE: 12/22/20 TIME: 10:21 SUBJECTIVE ROS Seen during dialysis , no new complaints or concerns OBJECTIVE Vital Signs Vital Signs Date Time Temp Pulse Resp B/P (MAP) Pulse Ox O2 Delivery O2 Flow Rate FiO2 12/22/20 08:31 20 98 Nasal Cannula 5.0 12/22/20 08:00 97.9 88 144/77 (99) 97.9 I & 0 Intake and Output 12/22/20 07:00 Intake Total 890 ml Balance 890 ml Intake Oral 740 ml Blood Product IV Normal Saline Flush 150 ml PHYSICAL EXAM Physical Exam GENERAL:NAD HEENT: OM moist On Chronic O2 by NC NECK: Supple. LUNGS: diminished breath sounds, non labored CARDIOVASCULAR: S1S2 ABDOMEN: Soft, nontender. EXTREMITIES s/p BKA Rt LE ; UE digit amputations NEURO grossly normal No Krishna, No CVA or SP tenderness DIAGNOSIS/ASSESSMENT Assessment & Plan ESRD: on HD MWF; emergent dialysis on 12/21 for HyperKalemia . Seen during treatment ,, tolerating well , discussed with Sheron. Hyperkalemia -life threatening POA-. Chronic elevated K. Kayexalate x 1 on 12/20; emergently dialyzed again on Tuesday . K still high . Discussed treatment plan with Sheron Anemia- s/p transfusions during recent hospitalizations . S/P 1 Unit of PRBC on dialysis yesterday ; continue SHANAE Past History of Acute respiratory failure with hypoxia- requiring intubation Diastolic CHF Severe PAD with gangrenous eschar on the right foot with ischemic rest pain. 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 Status post finger amputations bilaterally. History of COVID infection on 09/24/2019 and October 09 2019, chronic back pain - with radiculopathy H/o Seizures - on keppra Hypertension cont meds Gluteal ulcer - stage 3, noted from prior admissions History of clotted AV fistula Status post CODE BLUE July and again August - recently discharged from [facility] on 10/08/2020 COMMENT/RELEVANT DATA Meds Current Medications Medications (Trade) Dose Ordered Sig/Mary Kay Start Time Stop Time Status Last Admin Dose Admin Acetaminophen (Tylenol) 1,000 mg TID 12/17/20 21:00 12/22/20 08:37 500 MG Acetaminophen/ Hydrocodone Bitart (Lortab 5/325) 1 tab 1X ONCE 12/17/20 05:30 12/17/20 05:31 DC 12/17/20 05:18 1 TAB Albumin Human 200 ml @ 200 mls/hr 1X PRN PRN 12/21/20 11:30 12/21/20 17:29 DC Albuterol Sulfate (Ventolin Neb Soln) 2.5 mg PRN Q4HRS PRN 12/17/20 15:30 Amlodipine Besylate (Norvasc) 10 mg DAILY 12/18/20 09:00 12/21/20 07:43 10 MG Aspirin (Aspirin Chewable) 81 mg DAILY 12/18/20 09:00 12/21/20 07:39 81 MG Bisacodyl (Dulcolax Supp) 10 mg PRN DAILY PRN 12/17/20 15:30 Calcium Gluconate (Calcium Gluconate) 1,000 mg 1X ONCE 12/20/20 08:30 12/20/20 08:39 DC 12/20/20 09:31 1,000 MG Dextrose (Dextrose 50%-Water Syringe) 25 gm 1X ONCE 12/21/20 10:00 12/21/20 10:08 DC 12/21/20 10:57 25 GM Diphenhydramine HCl (Benadryl) 25 mg 1X PRN PRN 12/19/20 08:30 12/20/20 08:29 DC Epoetin Fredrick-epbx (RETACRIT for ESRD PTS) 20,000 unit MoWeFr@2100 12/17/20 21:00 12/19/20 20:14 20,000 UNIT Fentanyl Citrate (Fentanyl 2ml Vial) 50 mcg PRN Q2HR PRN 12/20/20 11:30 12/22/20 00:09 50 MCG Gabapentin (Neurontin) 300 mg DAILY08 12/18/20 08:00 12/21/20 07:40 300 MG Hydralazine HCl (Apresoline Inj) 10 mg PRN Q6HRS PRN 12/17/20 16:30 12/17/20 16:40 10 MG Hydralazine HCl (Apresoline) 75 mg BID 12/17/20 21:00 12/21/20 20:39 75 MG Info (PHARMACY MONITORING -- do not chart) 1 each PRN DAILY PRN 12/21/20 11:30 Insulin Human Regular (HumuLIN R VIAL) 5 unit 1X ONCE 12/21/20 09:45 12/21/20 09:48 DC 12/21/20 11:15 5 UNIT Levetiracetam (Keppra Oral Soln) 375 mg BID 12/17/20 21:00 12/21/20 20:38 375 MG Lidocaine HCl (Xylocaine-Mpf 1% 2ml Vial) 0.25 ml 1X STAT 12/18/20 08:34 12/18/20 08:36 DC 12/18/20 08:44 0.25 ML Lubiprostone (Amitiza) 24 mcg BIDWMEALS 12/17/20 17:00 12/22/20 08:23 24 MCG Morphine Sulfate (Morphine Sulfate) 4 mg PRN Q6HRS PRN 12/18/20 14:30 12/19/20 10:27 DC 12/19/20 07:53 4 MG Ondansetron HCl (Zofran Odt) 4 mg PRN Q6HRS PRN 12/17/20 15:30 Ondansetron HCl (Zofran) 4 mg 1X ONCE 12/17/20 06:00 12/17/20 06:01 DC 12/17/20 07:18 4 MG Oxycodone/ Acetaminophen (Percocet 5/325) 1 tab QIDPRN PRN 12/17/20 15:30 12/22/20 08:31 1 TAB Pantoprazole Sodium (Protonix) 40 mg DAILYAC 12/20/20 07:30 12/22/20 03:44 40 MG Sevelamer Carbonate (Renvela) 800 mg TIDWMEALS 12/17/20 17:00 12/22/20 08:24 800 MG Sodium Polystyrene Sulfonate (Kayexalate) 15 gm 1X ONCE 12/20/20 14:30 12/20/20 14:52 DC 12/20/20 16:23 15 GM Sodium Bicarbonate (Sodium Bicarb Adult 8.4% Syr) 50 meq 1X ONCE 12/21/20 09:45 12/21/20 09:48 DC 12/21/20 10:58 50 MEQ Sodium Chloride 1,000 ml @ 400 mls/hr Q2H30M PRN 12/21/20 11:30 12/21/20 23:29 DC Vitamin B Complex/ Vitamin C (Wendy-Marvin) 1 tab DAILY 12/18/20 09:00 12/22/20 08:23 1 TAB Warfarin Sodium (Coumadin Per Pharmacy) 1 each PRN DAILY PRN 12/18/20 09:15 12/21/20 15:56 1 EACH Warfarin Sodium (Coumadin Per Physician) 1 each PRN DAILY PRN 12/17/20 15:30 12/18/20 09:13 DC 12/18/20 07:57 1 EACH Warfarin Sodium (Coumadin) 7.5 mg 1X WARF ONCE 12/21/20 16:00 12/21/20 16:01 DC 12/21/20 18:05 7.5 MG Lab Laboratory Tests Test 12/21/20 21:22 12/22/20 07:55 12/22/20 08:38 Glucose (Fingerstick) 190 mg/dL (70-99) 215 mg/dL (70-99) White Blood Count 8.4 x10^3/uL (4.0-11.0) Red Blood Count 2.80 x10^6/uL (3.50-5.40) Hemoglobin 8.2 g/dL (12.0-15.5) Hematocrit 25.2 % (36.0-47.0) Mean Corpuscular Volume 90 fL (79-100) Mean Corpuscular Hemoglobin 29 pg (25-35) Mean Corpuscular Hemoglobin Concent 33 g/dL (31-37) Red Cell Distribution Width 16.7 % (11.5-14.5) Platelet Count 229 x10^3/uL (140-400) Neutrophils (%) (Auto) 70 % (31-73) Lymphocytes (%) (Auto) 13 % (24-48) Monocytes (%) (Auto) 9 % (0-9) Eosinophils (%) (Auto) 7 % (0-3) Basophils (%) (Auto) 1 % (0-3) Neutrophils # (Auto) 5.8 x10^3/uL (1.8-7.7) Lymphocytes # (Auto) 1.1 x10^3/uL (1.0-4.8) Monocytes # (Auto) 0.8 x10^3/uL (0.0-1.1) Eosinophils # (Auto) 0.6 x10^3/uL (0.0-0.7) Basophils # (Auto) 0.1 x10^3/uL (0.0-0.2) Sodium Level 137 mmol/L (136-145) Potassium Level 6.5 mmol/L (3.5-5.1) Chloride Level 96 mmol/L (98-107) Carbon Dioxide Level 34 mmol/L (21-32) Anion Gap 7 (6-14) Blood Urea Nitrogen 37 mg/dL (7-20) Creatinine 4.2 mg/dL (0.6-1.0) Estimated GFR (Cockcroft-Gault) 14.6 Glucose Level 180 mg/dL (70-99) Calcium Level 9.1 mg/dL (8.5-10.1) Results All relevant outside records, renal labs, imaging studies, telemetry/EKG's were reviewed. Justicifation of Admission Dx: Justifications for Admission: Justification of Admission Dx: Yes Respiratory Failure: Severe Resp Distress Chronic Renal Failure: Electrolyte Abnormality KADY STEARNS MD Dec 22, 2020 10:28
[2020-12-22 11:00] VITALS: BP 159/79
--- NOTE | 2020-12-22 11:00 | NUR ---
SW following. Discussed with RN, pt from home, uses oxygen at home, renal diet, COVID-19 negative. Pt having dialysis today, RN anticipates possible discharge home today after dialysis. SW will continue to follow.
[2020-12-22] MEDS: ASPIRIN CHEWABLE 81 MG TABLET. PO SCH (12:30)
[2020-12-22] MEDS: GABAPENTIN 300 MG CAPSULE. PO SCH (12:31)
[2020-12-22] MEDS: levETIRAcetam 500 MG/5 ML ORAL SOLUTION. PO SCH ×2 (12:32→20:40)
[2020-12-22] MEDS ORDERED: DIALYSIS PATIENT. MC PRN (12:45)
--- NOTE | 2020-12-22 12:45 | PDOC ---
[employer] PROGRESS NOTE Date of Service DOS: DATE: 12/22/20 TIME: 12:42 Chief Complaint Chief Complaint acute diastolic CHF, fluid overload, missed HD ESRD, on HD, noncompliance, foot back pain, OA, weakness critical hyperkalemia, HD done and labs better, acute on chronic pain disorder, narcotic dependence, PVD< mult prior amputations anemia, chronic on CKD, poor compliance weakness and debility acquired coagulation disorder, mult prior clots, on coumadin, goal 2-3 History of Present Illness History of Present Illness 12/22/2020 Patient seen and examined in the dialysis unit She seems to be having a panic attack I ordered some p.o. Ativan as we do not have IV access Discussed with RN Discussed with pharmacy Chart reviewed 12/18: pain better, feeds better, no event, to HD today, try to rehab 12/19: K6.1 today. Pain improved but still asking for IV pain medication. To dialysis. 12/20: Potassium 6.3. Provided insulin, D50, calcium gluconate, insulin and bicarbonate. I believe she may require hemodialysis again today. Still complains of "pain all over". Requesting morphine but discussed this being contraindicated given her ESRD. Will increase fentanyl to 50 mcg. 12/21: Hemoglobin 6.9 this morning, potassium 7.4. Will provide IV insulin, D50, calcium gluconate, insulin and bicarbonate. Nephrology has been informed that she will have hemodialysis today. We will also transfuse 1 unit PRBC during dialysis. Vitals/I&O Vitals/I&O: Vital Signs Date Time Temp Pulse Resp B/P (MAP) Pulse Ox O2 Delivery O2 Flow Rate FiO2 12/22/20 11:10 96 Nasal Cannula 4.0 12/22/20 08:31 20 12/22/20 08:00 97.9 88 144/77 (99) 97.9 I & O 12/21/20 12/21/20 12/22/20 15:00 23:00 07:00 Intake Total 150 ml 500 ml 240 ml Balance 150 ml 500 ml 240 ml Physical Exam General: Alert, severe distress Heart: Regular rate, Other (+S47) Lungs: Clear Abdomen: Soft Extremities: Normal pulses, Other Skin: No rashes Labs Labs: Laboratory Tests Test 12/21/20 21:22 12/22/20 07:55 12/22/20 08:38 12/22/20 12:09 Glucose (Fingerstick) 190 mg/dL (70-99) 215 mg/dL (70-99) 188 mg/dL (70-99) White Blood Count 8.4 x10^3/uL (4.0-11.0) Red Blood Count 2.80 x10^6/uL (3.50-5.40) Hemoglobin 8.2 g/dL (12.0-15.5) Hematocrit 25.2 % (36.0-47.0) Mean Corpuscular Volume 90 fL (79-100) Mean Corpuscular Hemoglobin 29 pg (25-35) Mean Corpuscular Hemoglobin Concent 33 g/dL (31-37) Red Cell Distribution Width 16.7 % (11.5-14.5) Platelet Count 229 x10^3/uL (140-400) Neutrophils (%) (Auto) 70 % (31-73) Lymphocytes (%) (Auto) 13 % (24-48) Monocytes (%) (Auto) 9 % (0-9) Eosinophils (%) (Auto) 7 % (0-3) Basophils (%) (Auto) 1 % (0-3) Neutrophils # (Auto) 5.8 x10^3/uL (1.8-7.7) Lymphocytes # (Auto) 1.1 x10^3/uL (1.0-4.8) Monocytes # (Auto) 0.8 x10^3/uL (0.0-1.1) Eosinophils # (Auto) 0.6 x10^3/uL (0.0-0.7) Basophils # (Auto) 0.1 x10^3/uL (0.0-0.2) Sodium Level 137 mmol/L (136-145) Potassium Level 6.5 mmol/L (3.5-5.1) Chloride Level 96 mmol/L (98-107) Carbon Dioxide Level 34 mmol/L (21-32) Anion Gap 7 (6-14) Blood Urea Nitrogen 37 mg/dL (7-20) Creatinine 4.2 mg/dL (0.6-1.0) Estimated GFR (Cockcroft-Gault) 14.6 Glucose Level 180 mg/dL (70-99) Calcium Level 9.1 mg/dL (8.5-10.1) Assessment and Plan Assessmemt and Plan Problems Medical Problems: (1) Anemia Status: Acu Noncompliance with dialysis last week Volume overload Probable panic attack Acute diastolic CHF, fluid overload, missed HD ESRD, on HD, noncompliance, foot back pain, OA, weakness critical hyperkalemia, HD done and labs better, acute on chronic pain disorder, narcotic dependence, PVD< mult prior amputations anemia, chronic on CKD, poor compliance weakness and debility acquired coagulation disorder, mult prior clots, on coumadin, goal 2-3 Plan Continue dialysis per nephrology I added in some as needed Ativan Monitor her electrolytes closely especially her potassium Home meds DVT prophylaxis Full code Long-term prognosis guarded Appreciate subspecialist input Per nephrology recommendations please see below and we certainly agree; ESRD: on HD MWF; emergent dialysis on 12/21 for HyperKalemia . Seen during treatment ,, tolerating well , discussed with Sheron. Hyperkalemia -life threatening POA-. Chronic elevated K. Kayexalate x 1 on 12/20; emergently dialyzed again on Tuesday . K still high . Discussed treatment plan with Sheron Anemia- s/p transfusions during recent hospitalizations . S/P 1 Unit of PRBC on dialysis yesterday ; continue SHANAE Past History of Acute respiratory failure with hypoxia- requiring intubation Diastolic CHF Severe PAD with gangrenous eschar on the right foot with ischemic rest pain. 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 Status post finger amputations bilaterally. History of COVID infection on 09/24/2019 and October 09 2019, chronic back pain - with radiculopathy H/o Seizures - on keppra Hypertension cont meds Gluteal ulcer - stage 3, noted from prior admissions History of clotted AV fistula Status post CODE BLUE July and again August - recently discharged from [facility] on 10/08/2020 Comment Review of Relevant I have reviewed the following items jamie (where applicable) has been applied. Medications: Current Medications Medications (Trade) Dose Ordered Sig/Mary Kay Route PRN Reason Start Time Stop Time Status Last Admin Dose Admin Warfarin Sodium (Coumadin) 7.5 mg 1X WARF ONCE PO 12/21/20 16:00 10/17/21 16:01 DC 12/21/20 18:05 Justifications for Admission Other Justification Hyperkalemia, ESRD on HD, symptomatic anemia JULIAN GONSALVES III DO Dec 22, 2020 12:44
[2020-12-22 14:59] LABS: PROTHROMBIN TIME PATIENT 24.2 SEC (11.7-14.0)
[2020-12-22 15:00] VITALS: BP 145/77
[2020-12-22] MEDS ORDERED: WARFARIN 3 MG TABLET. PO ONE (16:00)
[2020-12-22 19:00] VITALS: BP 125/64
[2020-12-22] MEDS: EPOETIN ALFA-EPBX for ESRD 20,000 UNIT/ML VIAL. SQ SCH (20:49)
[2020-12-22 23:00] VITALS: BP 18/74
[2020-12-23 03:00] VITALS: BP 137/68
[2020-12-23] MEDS: oxyCODONE/APAP 5/325 1 TAB TABLET PO PRN ×2 (03:25→10:55)
[2020-12-23 07:00] VITALS: BP 151/73
[2020-12-23 08:01] LABS: PROTHROMBIN TIME PATIENT 32.4 SEC (11.7-14.0)
[2020-12-23] MEDS: ASPIRIN CHEWABLE 81 MG TABLET. PO SCH (08:38)
[2020-12-23] MEDS: LUBIPROSTONE 24 MCG CAPSULE PO SCH ×2 (08:39→17:28)
[2020-12-23] MEDS: PANTOPRAZOLE 40 MG TABLET.DR. PO SCH (08:39)
[2020-12-23] MEDS: ACETAMINOPHEN 500 MG TABLET PO SCH ×2 (08:40→17:28)
[2020-12-23] MEDS: GABAPENTIN 300 MG CAPSULE. PO SCH (08:41)
[2020-12-23] MEDS: SEVELAMER CARBONATE 800 MG TABLET. PO SCH ×3 (08:41→17:32)
[2020-12-23] MEDS: levETIRAcetam 500 MG/5 ML ORAL SOLUTION. PO SCH (08:41)
[2020-12-23] MEDS: FOLIC/VIT B COMP W-C (RENAL) TABLET. PO SCH (08:41)
[2020-12-23 11:00] VITALS: BP 145/66
--- NOTE | 2020-12-23 12:01 | PDOC ---
DATE OF SERVICE DATE: 12/23/20 TIME: 11:59 SUBJECTIVE ROS Resting comfortably No acute concerns voiced by nursing OBJECTIVE Vital Signs Vital Signs Date Time Temp Pulse Resp B/P (MAP) Pulse Ox O2 Delivery O2 Flow Rate FiO2 12/23/20 11:00 98.3 94 18 145/66 (92) 95 Nasal Cannula 5.0 98.3 I & 0 Intake and Output 12/23/20 07:00 Intake Total 400 ml Balance 400 ml Intake Oral 400 ml PHYSICAL EXAM Physical Exam GENERAL:NAD HEENT: OM moist On Chronic O2 by NC NECK: Supple. LUNGS: diminished breath sounds, non labored CARDIOVASCULAR: S1S2 ABDOMEN: Soft, nontender. EXTREMITIES s/p BKA Rt LE ; UE digit amputations NEURO grossly normal No Krishna, No CVA or SP tenderness DIAGNOSIS/ASSESSMENT Assessment & Plan ESRD: on HD MWF; emergent dialysis on 12/21 for HyperKalemia . Dialyzed yesterday per her schedule. She didnt complete her treatment (frequent behavior), had a long discussion Hyperkalemia -life threatening POA-. Chronic elevated K. Kayexalate x 1 on 12/20; emergently dialyzed again on Tuesday . K still high . Discussed treatment plan with Sheron Anemia- s/p transfusions during recent hospitalizations . S/P 1 Unit of PRBC on dialysis yesterday ; continue SHANAE Past History of Acute respiratory failure with hypoxia- requiring intubation Diastolic CHF Severe PAD with gangrenous eschar on the right foot with ischemic rest pain. 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 Status post finger amputations bilaterally. History of COVID infection on 09/24/2019 and October 09 2019, chronic back pain - with radiculopathy H/o Seizures - on keppra Hypertension cont meds Gluteal ulcer - stage 3, noted from prior admissions History of clotted AV fistula Status post CODE BLUE July and again August - recently discharged from [facility] on 10/08/2020 DC per primary; resume Dialysis tomorrow at her OP unit if dced today COMMENT/RELEVANT DATA Meds Current Medications Medications (Trade) Dose Ordered Sig/Mary Kay Start Time Stop Time Status Last Admin Dose Admin Acetaminophen (Tylenol) 1,000 mg TID 12/17/20 21:00 12/23/20 08:40 1,000 MG Acetaminophen/ Hydrocodone Bitart (Lortab 5/325) 1 tab 1X ONCE 12/17/20 05:30 12/17/20 05:31 DC 12/17/20 05:18 1 TAB Albumin Human 200 ml @ 200 mls/hr 1X PRN PRN 12/21/20 11:30 12/21/20 17:29 DC Albuterol Sulfate (Ventolin Neb Soln) 2.5 mg PRN Q4HRS PRN 12/17/20 15:30 Amlodipine Besylate (Norvasc) 10 mg DAILY 12/18/20 09:00 12/23/20 08:40 10 MG Aspirin (Aspirin Chewable) 81 mg DAILY 12/18/20 09:00 12/23/20 08:38 81 MG Bisacodyl (Dulcolax Supp) 10 mg PRN DAILY PRN 12/17/20 15:30 Calcium Gluconate (Calcium Gluconate) 1,000 mg 1X ONCE 12/20/20 08:30 12/20/20 08:39 DC 12/20/20 09:31 1,000 MG Dextrose (Dextrose 50%-Water Syringe) 25 gm 1X ONCE 12/21/20 10:00 12/21/20 10:08 DC 12/21/20 10:57 25 GM Diphenhydramine HCl (Benadryl) 25 mg 1X PRN PRN 12/19/20 08:30 12/20/20 08:29 DC Epoetin Fredirck-epbx (RETACRIT for ESRD PTS) 20,000 unit MoWeFr@2100 12/17/20 21:00 12/19/20 20:14 20,000 UNIT Fentanyl Citrate (Fentanyl 2ml Vial) 50 mcg PRN Q2HR PRN 12/20/20 11:30 12/22/20 11:10 50 MCG Gabapentin (Neurontin) 300 mg DAILY08 12/18/20 08:00 12/23/20 08:41 300 MG Hydralazine HCl (Apresoline Inj) 10 mg PRN Q6HRS PRN 12/17/20 16:30 12/17/20 16:40 10 MG Hydralazine HCl (Apresoline) 75 mg BID 12/17/20 21:00 12/23/20 08:41 75 MG Info (PHARMACY MONITORING -- do not chart) 1 each PRN DAILY PRN 12/22/20 12:45 Insulin Human Regular (HumuLIN R VIAL) 5 unit 1X ONCE 12/21/20 09:45 12/21/20 09:48 DC 12/21/20 11:15 5 UNIT Levetiracetam (Keppra Oral Soln) 375 mg BID 12/17/20 21:00 12/23/20 08:41 375 MG Lidocaine HCl (Xylocaine-Mpf 1% 2ml Vial) 0.25 ml 1X STAT 12/18/20 08:34 12/18/20 08:36 DC 12/18/20 08:44 0.25 ML Lorazepam (Ativan) 1 mg PRN Q6HRS PRN 12/22/20 11:30 12/23/20 09:10 1 MG Lubiprostone (Amitiza) 24 mcg BIDWMEALS 12/17/20 17:00 12/23/20 08:39 24 MCG Morphine Sulfate (Morphine Sulfate) 4 mg PRN Q6HRS PRN 12/18/20 14:30 12/19/20 10:27 DC 12/19/20 07:53 4 MG Ondansetron HCl (Zofran Odt) 4 mg PRN Q6HRS PRN 12/17/20 15:30 Ondansetron HCl (Zofran) 4 mg 1X ONCE 12/17/20 06:00 12/17/20 06:01 DC 12/17/20 07:18 4 MG Oxycodone/ Acetaminophen (Percocet 5/325) 1 tab QIDPRN PRN 12/17/20 15:30 12/23/20 10:55 1 TAB Pantoprazole Sodium (Protonix) 40 mg DAILYAC 12/20/20 07:30 12/23/20 08:39 40 MG Sevelamer Carbonate (Renvela) 800 mg TIDWMEALS 12/17/20 17:00 12/23/20 08:41 800 MG Sodium Polystyrene Sulfonate (Kayexalate) 15 gm 1X ONCE 12/20/20 14:30 12/20/20 14:52 DC 12/20/20 16:23 15 GM Sodium Bicarbonate (Sodium Bicarb Adult 8.4% Syr) 50 meq 1X ONCE 12/21/20 09:45 12/21/20 09:48 DC 12/21/20 10:58 50 MEQ Sodium Chloride 1,000 ml @ 400 mls/hr Q2H30M PRN 12/21/20 11:30 12/21/20 23:29 DC Vitamin B Complex/ Vitamin C (Wendy-Marvin) 1 tab DAILY 12/18/20 09:00 12/23/20 08:41 1 TAB Warfarin Sodium (Coumadin Per Pharmacy) 1 each PRN DAILY PRN 12/18/20 09:15 12/22/20 14:28 1 EACH Warfarin Sodium (Coumadin Per Physician) 1 each PRN DAILY PRN 12/17/20 15:30 12/18/20 09:13 DC 12/18/20 07:57 1 EACH Warfarin Sodium (Coumadin) 6 mg 1X WARF ONCE 12/22/20 16:00 12/22/20 16:01 DC 12/22/20 18:52 6 MG Lab Laboratory Tests Test 12/22/20 12:09 12/22/20 16:44 12/22/20 19:50 12/23/20 07:15 Glucose (Fingerstick) 188 mg/dL (70-99) 117 mg/dL (70-99) 258 mg/dL (70-99) Prothrombin Time 32.4 SEC (11.7-14.0) Prothromb Time International Ratio 3.2 (0.8-1.1) Test 12/23/20 07:42 12/23/20 11:54 Glucose (Fingerstick) 174 mg/dL (70-99) 296 mg/dL (70-99) Results All relevant outside records, renal labs, imaging studies, telemetry/EKG's were reviewed. Justicifation of Admission Dx: Justifications for Admission: Justification of Admission Dx: Yes Respiratory Failure: Severe Resp Distress Chronic Renal Failure: Electrolyte Abnormality KADY STEARNS MD Dec 23, 2020 12:01
[2020-12-23] MEDS ORDERED: DEXTROSE 50% 25 GM / 50ML DISP.SYRIN. IV PRN (12:45)
[2020-12-23] MEDS: INSULIN LISPRO 300 UNITS/3 ML VIAL. SQ SCH ×2 (13:11→17:00)
--- NOTE | 2020-12-23 13:42 | NUR ---
Pharmacy Warfarin Dosing Note S: Pharmacy consulted to assist with anticoagulation therapy started [employer]TER O: JORGE ESTRADA is a 35 year old F with h/o PE LABS: Last INR: 3.2 Last HGB: 6.98.2 Last HCT: 25.2 Last PLT: 229 A:INR of 3.2 is above desired range. Target range for this patient is: 2 -3 P: Warfarin dose: Hold Today at 1600 Bridge Therapy: None Next INR due 12/25/20 AM Pharmacy anticoagulation service will continue to follow. ARACELI RÍOS [facility], 12/23/20 0026
[2020-12-23 15:00] VITALS: BP 152/68
--- NOTE | 2020-12-23 15:33 | PDOC ---
[facility] PROGRESS NOTE Date of Service DOS: DATE: 12/23/20 TIME: 15:31 Chief Complaint Chief Complaint acute diastolic CHF, fluid overload, missed HD ESRD, on HD, noncompliance, foot back pain, OA, weakness critical hyperkalemia, HD done and labs better, acute on chronic pain disorder, narcotic dependence, PVD< mult prior amputations anemia, chronic on CKD, poor compliance weakness and debility acquired coagulation disorder, mult prior clots, on coumadin, goal 2-3 History of Present Illness History of Present Illness 12/23 Patient evaluated and examined at bedside. When I initially entered her room she was comfortably sitting in bed eating lunch. However upon realizing it was there she slumped over and began to look tearful. Continue to complain of a lot of shoulder back leg pain. Says she is in too much pain to work with physical therapy and did not want it ordered. Also requesting specifically IV pain meds even though she has no IV access. Informed her she needs treatment with oral meds right now. Limit opioid use. Monitor daily electrolytes. 12/22/2020 Patient seen and examined in the dialysis unit She seems to be having a panic attack I ordered some p.o. Ativan as we do not have IV access Discussed with RN Discussed with pharmacy Chart reviewed 12/18: pain better, feeds better, no event, to HD today, try to rehab 12/19: K6.1 today. Pain improved but still asking for IV pain medication. To dialysis. 12/20: Potassium 6.3. Provided insulin, D50, calcium gluconate, insulin and bicarbonate. I believe she may require hemodialysis again today. Still complains of "pain all over". Requesting morphine but discussed this being contraindicated given her ESRD. Will increase fentanyl to 50 mcg. 12/21: Hemoglobin 6.9 this morning, potassium 7.4. Will provide IV insulin, D50, calcium gluconate, insulin and bicarbonate. Nephrology has been informed that she will have hemodialysis today. We will also transfuse 1 unit PRBC during dialysis. Vitals/I&O Vitals/I&O: Vital Signs Date Time Temp Pulse Resp B/P (MAP) Pulse Ox O2 Delivery O2 Flow Rate FiO2 12/23/20 12:10 97 Nasal Cannula 5.0 12/23/20 11:00 98.3 94 18 145/66 (92) 98.3 I & O 12/22/20 12/22/20 12/23/20 15:00 23:00 07:00 Intake Total 300 ml 100 ml Balance 300 ml 100 ml Physical Exam General: Alert, severe distress Heart: Regular rate, Other (+S47) Lungs: Clear Abdomen: Soft Extremities: Normal pulses, Other Skin: No rashes Labs Labs: Laboratory Tests Test 12/22/20 16:44 12/22/20 19:50 12/23/20 07:15 12/23/20 07:42 Glucose (Fingerstick) 117 mg/dL (70-99) 258 mg/dL (70-99) 174 mg/dL (70-99) Prothrombin Time 32.4 SEC (11.7-14.0) Prothromb Time International Ratio 3.2 (0.8-1.1) Test 12/23/20 11:54 Glucose (Fingerstick) 296 mg/dL (70-99) Assessment and Plan Assessmemt and Plan Problems Medical Problems: (1) Anemia Status: Acute Comment Review of Relevant I have reviewed the following items jamie (where applicable) has been applied. Medications: Current Medications Medications (Trade) Dose Ordered Sig/Mary Kay Route PRN Reason Start Time Stop Time Status Last Admin Dose Admin Warfarin Sodium (Coumadin) 6 mg 1X WARF ONCE PO 12/22/20 16:00 12/22/20 16:01 DC 12/22/20 18:52 Insulin Human Lispro (HumaLOG) 0-7 UNITS TIDWMEALS SQ 12/23/20 13:00 12/23/20 13:11 Justifications for Admission Other Justification Hyperkalemia, ESRD on HD, symptomatic anemia BRANDO FRAGA MD Dec 23, 2020 15:33
[2020-12-23 19:00] VITALS: BP 155/77
--- NOTE | 2020-12-23 19:33 | PDOC3 ---
[facility]-Discharge Summary Date of Admission: Date of Admission: Dec 17, 2020 Date of Discharge: Date of Discharge: Dec 23, 2020 Admission Diagnosis: Problems: (1) Hyperkalemia (2) Bilateral leg pain Discharge Diagnosis: Discharge Diagnosis: Bilateral leg pain Hyperkalemia resolved Consults: Consults: Nepology Hospital Course: Hospital Course: Chief Complaint acute diastolic CHF, fluid overload, missed HD ESRD, on HD, noncompliance, foot back pain, OA, weakness critical hyperkalemia, HD done and labs better, acute on chronic pain disorder, narcotic dependence, PVD< mult prior amputations anemia, chronic on CKD, poor compliance weakness and debility acquired coagulation disorder, mult prior clots, on coumadin, goal 2-3 History of Present Illness History of Present Illness 12/23 Patient evaluated and examined at bedside. When I initially entered her room she was comfortably sitting in bed eating lunch. However upon realizing it was there she slumped over and began to look tearful. Continue to complain of a lot of shoulder back leg pain. Says she is in too much pain to work with physical therapy and did not want it ordered. Also requesting specifically IV pain meds even though she has no IV access. Informed her she needs treatment with oral m eds right now. Limit opioid use. Monitor daily electrolytes. Patient in the evening decided she wanted to discharge. Instructed her importance of dialysis follow up and medication compliance. She understood and d/c home 12/22/2020 Patient seen and examined in the dialysis unit She seems to be having a panic attack I ordered some p.o. Ativan as we do not have IV access Discussed with RN Discussed with pharmacy Chart reviewed 12/18: pain better, feeds better, no event, to HD today, try to rehab 12/19: K6.1 today. Pain improved but still asking for IV pain medication. To dialysis. 12/20: Potassium 6.3. Provided insulin, D50, calcium gluconate, insulin and bicarbonate. I believe she may require hemodialysis again today. Still complains of "pain all over". Requesting morphine but discussed this being contraindicated given her ESRD. Will increase fentanyl to 50 mcg. 12/21: Hemoglobin 6.9 this morning, potassium 7.4. Will provide IV insulin, D50, calcium gluconate, insulin and bicarbonate. Nephrology has been informed that she will have hemodialysis today. We will also transfuse 1 unit PRBC during dialysis. Disposition: Disposition/Orders: D/C to Home Activity: Activity: Resume previous activity Diet: Diet: Renal Medications: Home Meds Active Scripts Oxycodone/Apap 5-325 (PERCOCET 5-325 MG TABLET ) 1 Each Tablet, 1 TAB PO QIDPRN PRN for PAIN MDD 4 Tablet(s) for 3 Days, #20 TAB 0 Refills Prov:DOMENICA COLLINS MD 12/13/20 Gabapentin (GABAPENTIN) 300 Mg Capsule, 300 MG PO DAILY08 for pain for 30 Days, #30 CAP Prov:RIFBRANDO MARTINEZ MD 01/05/20 Ondansetron (ONDANSETRON ODT) 4 Mg Tab.rapdis, 4 MG PO PRN Q6HRS PRN for NAUSEA/VOMITING for 14 Days, #60 TAB Prov:PHILLIP MENDOZA MD 08/26/19 Bisacodyl (BISACODYL) 10 Mg Supp.rect, 10 MG VA PRN DAILY PRN for CONSTIPATION for 14 Days, #30 SUPP.RECT Prov:PHILLIP MENDOZA MD 08/26/19 Levetiracetam (KEPPRA) 250 Mg Tablet, 375 MG PO BID for seizure disorder for 30 Days, #90 TAB Prov:PHILLIP MENDOZA MD 08/26/19 Hydralazine Hcl (HYDRALAZINE HCL) 50 Mg Tablet, 75 MG PO BID for blood pressure for 30 Days, #90 TAB Prov:PHILLIP MENDOZA MD 08/26/19 Albuterol Sulfate (Proair Hfa) 8.5 Gm Hfa.aer.ad, 2.5 MG NEB PRN Q4HRS PRN for SHORTNESS OF BREATH for 14 Days, #1 INHALER Prov:PHILLIP MENDOZA MD 08/26/19 Lubiprostone (AMITIZA) 24 Mcg Capsule, 24 MCG PO BIDWMEALS for constipation for 30 Days, #60 CAP Prov:LAURA WARD MD 08/20/19 Reported Medications Warfarin Sodium (WARFARIN SODIUM) 4 Mg Tablet, 4 MG PO DAILY for blood thinner, #30 TAB 08/31/20 Insulin Aspart (NOVOLOG) 100 Unit/1 Ml Vial, 0-12 UNIT SQ TIDAC for dm, EACH 08/31/20 Nicotine (NICODERM CQ 14mg) 1 Each Patch.td24, 1 PATCH TP DAILY for tobacco use, #14 PATCH 08/31/20 Acetaminophen (ACETAMINOPHEN) 500 Mg Tablet, 1000 MG PO TID for pain, TAB 08/31/20 Vits A and D/White Pet/Lanolin (A and D Ointment) 42.5 Gm Oint...g., 42.5 GM TP BID for skin integrity, MISC 08/31/20 Sevelamer Carbonate (RENVELA) 800 Mg Tablet, 1 TAB PO TID for renal function for 30 Days, #90 TAB 0 Refills 12/28/18 Folic Acid/Vitamin B Comp W-C (FRANKY-BEN TABLET) 0.8 Mg Tablet, 1 TAB PO DAILY for supplement for 30 Days, #30 TAB 0 Refills 12/28/18 Pantoprazole Sodium (PROTONIX) 20 Mg Tablet.dr, 2 TAB PO DAILY for GERD, #30 TAB 12/28/18 Carvedilol (CARVEDILOL) 25 Mg Tablet, 25 MG PO BIDWMEALS for CARDIAC, TAB 12/28/18 Aspirin (ASPIRIN) 81 Mg Tab.chew, 1 TAB PO DAILY for blood thinner, #30 TAB 3 Refills 12/28/18 Amlodipine Besylate (AMLODIPINE BESYLATE) 10 Mg Tablet, 10 MG PO DAILY, TAB 12/05/17 Scheduled Acetaminophen (Acetaminophen), 1,000 MG PO TID, (Reported) Amlodipine Besylate (Amlodipine Besylate), 10 MG PO DAILY, (Reported) Aspirin (Aspirin), 1 TAB PO DAILY, (Reported) Carvedilol (Carvedilol), 25 MG PO BIDWMEALS, (Reported) Folic Acid/Vitamin B Comp W-C (Franky-Ben Tablet), 1 TAB PO DAILY, (Reported) Gabapentin (Gabapentin), 300 MG PO DAILY08 Hydralazine Hcl (Hydralazine Hcl), 75 MG PO BID Insulin Aspart (Novolog), 0-12 UNIT SQ TIDAC, (Reported) Levetiracetam (Keppra), 375 MG PO BID Lubiprostone (Amitiza), 24 MCG PO BIDWMEALS Nicotine (NICODERM CQ 14mg), 1 PATCH TP DAILY, (Reported) Pantoprazole Sodium (Protonix), 2 TAB PO DAILY, (Reported) Sevelamer Carbonate (Renvela), 1 TAB PO TID, (Reported) Vits A and D/White Pet/Lanolin (A and D Ointment), 42.5 GM TP BID, (Reported) Warfarin Sodium (Warfarin Sodium), 4 MG PO DAILY, (Reported) Scheduled PRN Albuterol Sulfate (Proair Hfa), 2.5 MG NEB PRN Q4HRS PRN for SHORTNESS OF BREATH Bisacodyl (Bisacodyl), 10 MG VA PRN DAILY PRN for CONSTIPATION Ondansetron (Ondansetron Odt), 4 MG PO PRN Q6HRS PRN for NAUSEA/VOMITING Oxycodone/Apap 5-325 (Percocet 5-325 Mg Tablet ), 1 TAB PO QIDPRN PRN for PAIN Justicifation of Admission Dx: Justifications for Admission: Justification of Admission Dx: Yes Respiratory Failure: Severe Resp Distress Chronic Renal Failure: Electrolyte Abnormality BRANDO FRAGA MD Dec 23, 2020 19:32
== END 2020-12-23 23:46 | disposition home or self-care (01) | DRG 291 ==
LOC: ER 23:11 → 1 WEST ICU 12-17 09:50 → 5 SOUTH 12-18 15:13
PROVIDERS: ADMIT Internal Medicine; ATTEND Internal Medicine
PROC: 5A1D70Z Performance of Urinary Filtration, Intermittent, Less than 6 Hours Per Day (ICD-10-PCS; 2020-12-18)
PROC: 30233N1 Transfusion of Nonautologous Red Blood Cells into Peripheral Vein, Percutaneous Approach (ICD-10-PCS; principal; 2020-12-21)
PROC: 5A1D70Z Performance of Urinary Filtration, Intermittent, Less than 6 Hours Per Day (ICD-10-PCS; 2020-12-21)
PROC: 5A1D70Z Performance of Urinary Filtration, Intermittent, Less than 6 Hours Per Day (ICD-10-PCS; 2020-12-22)
DX: I13.2 Hypertensive heart and chronic kidney disease with heart failure and with stage 5 chronic kidney disease, or end stage renal disease (principal); I50.31 Acute diastolic (congestive) heart failure; N18.6 End stage renal disease; F11.20 Opioid dependence, uncomplicated; E87.5 Hyperkalemia; E78.5 Hyperlipidemia, unspecified; D64.9 Anemia, unspecified; E10.22 Type 1 diabetes mellitus with diabetic chronic kidney disease; E10.51 Type 1 diabetes mellitus with diabetic peripheral angiopathy without gangrene; F41.0 Panic disorder [episodic paroxysmal anxiety]; G89.29 Other chronic pain; Z79.4 Long term (current) use of insulin; Z82.49 Family history of ischemic heart disease and other diseases of the circulatory system; Z83.3 Family history of diabetes mellitus; Z86.711 Personal history of pulmonary embolism; Z87.891 Personal history of nicotine dependence; Z89.511 Acquired absence of right leg below knee; Z90.710 Acquired absence of both cervix and uterus; Z91.15 Patient's noncompliance with renal dialysis; Z91.19 Patient's noncompliance with other medical treatment and regimen; Z99.2 Dependence on renal dialysis; E21.3 Hyperparathyroidism, unspecified; F32.A Depression, unspecified; F41.9 Anxiety disorder, unspecified; M10.9 Gout, unspecified; M19.90 Unspecified osteoarthritis, unspecified site; Z20.822 Contact with and (suspected) exposure to COVID-19
CPT/HCPCS: 36415; 36430; 71045; 80048; 80053; 82962; 83735; 84100; 84132; 85007; 85025; 85610; 85730; 86850; 86900; 86901; 86920; 87426; 94760; 96374; 96375; J0360; J0610; J1815; J2270; J2405; J3010; J3490; P9016; U0003; U0005; 99285-25; G0378; Q0163